=== PATIENT | female | born 1940 | race Caucasian/White ===

== ENCOUNTER 2025-02-10 16:37 | Emergency (ER) | payer MEDICARE, SELFPAY ==
[2025-02-10 16:38] VITALS: BP 108/91; PULSE 77; RESP 18; TEMP 36.3; O2SAT 93; BMI 19.1
--- NOTE | 2025-02-10 17:48 | CT_ITS ---
PROCEDURE: ABDOMEN/PELVIS W IV CONT ONLY 02/10/2025 REASON FOR EXAM: DIARRHEA. TECHNIQUE: ABDOMEN/PELVIS W IV CONT ONLY Coronal and Sagittal reconstruction series were provided. CONTRAST: Isovue 370 VOLUME: 70 mL One or more dose reduction techniques were used (e.g., Automated exposure control, adjustment of the mA and/or kV according to patient size, use of iterative reconstruction technique. RADIATION DOSE SUMMARY: CTDlvol: 6.65, 5.92 mGy DLP: 275.42 mGycm COMPARISON: None. FINDINGS: LUNG BASES: No basilar airspace consolidation or pleural effusion. Minimal dependent atelectasis bilaterally. Coronary artery calcification. LIVER: Ill-defined hypodensity measuring 1.3 cm in segment 4B along the falciform ligament, possibly focal hepatic steatosis. GALLBLADDER: The gallbladder is completely contracted, limiting its evaluation. BILE DUCTS: Prominent intrahepatic and extrahepatic bile ducts, mildly dilated for patient's age. The CBD measures up to 9.7 mm with rapid tapering at the level of the ampulla. No obstructing lesion seen. PANCREAS: Unremarkable. SPLEEN: Unremarkable. ADRENAL GLANDS: Unremarkable. KIDNEYS: The kidneys enhance symmetrically. Hypodense 3.6 mm right renal lesion, likely a cyst. No hydronephrosis or hydroureter. STOMACH AND BOWEL: Small hiatal hernia. Diffuse wall thickening of the sigmoid colon and rectum with adjacent fat stranding. No obstruction or perforation. Moderate colonic stool. 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 APPENDIX: Normal-appearing appendix. No CT evidence for appendicitis. RETRO/PERITONEUM: No free fluid. No free air. LYMPH NODES: Multiple small left periaortic lymph nodes. PELVIC ORGANS: Unremarkable urinary bladder and uterus. The ovaries are not well seen. VASCULATURE: No aortic aneurysm. Scattered calcified atherosclerosis. ABDOMINAL WALL AND SOFT TISSUES: Tiny fat containing umbilical hernia. BONES: No fracture or suspicious osseous abnormality. Degenerative changes of the spine and both hips. Mild/moderate lumbar levoscoliosis. CT/Abdomen/Pelvis W IV Cont ONLY IMPRESSION: 1. Diffusely thickened rectosigmoid colon with adjacent inflammatory changes, query acute proctocolitis. 2. Mildly dilated bile ducts. No obstructing lesion seen. A biliary strictur e at the level of the ampulla is possible. Reading Location: [id number]
--- NOTE | 2025-02-10 17:56 | EX.ED.DYSGE1 ---
HPI <ARIANA Leiva - Last Filed: 02/10/25 20:04> History of Present Illness Chief Complaint: Diarrhea Narrative Narrative: 84 old female states 2 weeks ago she started having diarrhea. A few days into the illness the diarrhea became heavy and she was going multiple times throughout the day. No black or bloody stools. She never had nausea, vomiting, or abdominal pain. It is slowed down to 2-3 watery bowel movements a day. She saw her primary care doctor yesterday and had blood work and they called her today stating her white blood cell count was elevated and she has a kidney injury from dehydration and to go to the ED for fluids. PFSH <ARIANA Leiva Last Filed: 02/10/25 20:04> [facility] Home Medications ?Medication ?Instructions ?Recorded ?Last Taken ?Type levofloxacin 750 mg tablet 750 mg PO DAILY 7 days #7 tabs 02/10/25 Unknown Rx metronidazole 500 mg tablet 500 mg PO BID 7 days #14 tabs 02/10/25 Unknown Rx Allergy/AdvReac Type Severity Reaction Status Date / Time amoxicillin Allergy Intermediate Hives Verified 02/10/25 16:40 Social History Smoking Status: Never smoker ROS <ARIANA Leiva - Last Filed: 02/10/25 20:04> ROS ED ROS Narrative Constitutional: Negative for fever, chills, malaise. GI: Positive for diarrhea. Negative for abdominal pain, nausea, vomiting, melena, hematochezia. : Negative for dysuria. EXAM <ARIANA Leiva Last Filed: 02/10/25 20:04> Physical Exam Narrative Exam Narrative: CONST: Patient sitting in no acute distress. EYES: Normal inspection. NECK: Normal inspection. RESP: No respiratory distress, CTAB. CVS: Regular rate and rhythm, no murmur, no gallop. ABD: Soft and nontender, no guarding or rebound, nondistended, normal bowel sounds x 4 SKIN: Color normal, no rash, warm, dry, intact. EXTREMITIES: Normal appearance, no pedal edema. NEURO: Alert and answering questions appropriately. PSYCH: Normal affect. Const Vital Signs: 02/10/25 16:38 02/10/25 18:37 Temperature 97.4 F L Temperature Source Oral Pulse Rate 77 80 Respiratory Rate 18 18 Blood Pressure 108/91 H 140/59 H Blood Pressure Mean 96 86 Pulse Ox 93 95 Oxygen Delivery Method Room Air Room Air <Dr. Galdino Pittman DO - Last Filed: 02/12/25 15:31> Physical Exam Const Vital Signs: 02/10/25 16:38 02/10/25 18:37 Temperature 97.4 F L Temperature Source Oral Pulse Rate 77 80 Respiratory Rate 18 18 Blood Pressure 108/91 H 140/59 H Blood Pressure Mean 96 86 Pulse Ox 93 95 Oxygen Delivery Method Room Air Room Air MDM <ARIANA Leiva - Last Filed: 02/10/25 20:04> [facility] MDM Narrative Medical decision making narrative: History gathered from: Patient and family members Differential includes but not limited to colitis, diverticulitis, viral etiology, C. difficile 84-year-old female has had 2 weeks of diarrhea, reporting initially the diarrhea was very frequent but now slowed down to 2-3 episodes a day. She has never had fever, chills, nausea or vomiting, or abdominal pain. A provider from her IM clinic called and states her white blood cell count was 16 and creatinine was 1.85 from labs drawn yesterday. Here she is awake alert no distress, vital stable. Her exam is completely benign with soft, nontender abdomen. WBC is 19.0 but lactic is normal at 1.9. BMP is overall unremarkable and creatinine is 1.20. She was given IV fluids. CT shows resolution of symptoms. Colitis. Since she is still having diarrhea and has significant leukocytosis so we will put her on Levaquin and Flagyl. First dose was given in ED. She does not have systemic symptoms and has never had abdominal pain and then is very well-appearing so is appropriate for outpatient management. I discussed return precautions. She was discharged in stable condition. History & Record Review Discussion w/independent historian: Patient and Family Additional record(s) reviewed:: Prior labs Lab Data Labs: Laboratory Results - last 24 hr 02/10/25 17:59 WBC 19.0 H RBC 3.88 L Hgb 12.3 Hct 37.9 MCV 97.7 MCH 31.7 MCHC 32.5 RDW Std Deviation 47.4 H RDW Coeff of Anay 13.1 Plt Count 542 H MPV 8.0 Immature Gran % (Auto) 0.700 Neut % (Auto) 82.0 H Lymph % (Auto) 6.1 L Conway % (Auto) 10.4 H Eos % (Auto) 0.2 Baso % (Auto) 0.6 Absolute Neuts (auto) 15.6 H Absolute Lymphs (auto) 1.16 Nucleated RBC % 0 Sodium 136 Potassium 3.3 Chloride 96 L Carbon Dioxide 24.7 Anion Gap 15 BUN 29 H Creatinine 1.20 Estim Creat Clear Calc 23.62 L Est GFR (MDRD) Non-Af 44 L BUN/Creatinine Ratio 24.1 H Glucose 113 H Lactic Acid 1.9 Calcium 9.2 Radiography Diagnostic Testing: Clinical Impression(s) from Imaging Studies Abdomen/Pelvis CT 02/10/25 17:48 IMPRESSION: 1. Diffusely thickened rectosigmoid colon with adjacent inflammatory changes, query acute proctocolitis. 2. Mildly dilated bile ducts. No obstructing lesion seen. A biliary stricture at the level of the ampulla is possible. Reading Location: [id number] <Dr. Galdino RoblesYanci, DO - Last Filed: 02/12/25 15:31> [facility] MDM Narrative Medical decision making narrative: History gathered from: Patient and family members Differential includes but not limited to colitis, diverticulitis, viral etiology, C. difficile 84-year-old female has had 2 weeks of diarrhea, reporting initially the diarrhea was very frequent but now slowed down to 2-3 episodes a day. She has never had fever, chills, nausea or vomiting, or abdominal pain. A provider from her IM clinic called and states her white blood cell count was 16 and creatinine was 1.85 from labs drawn yesterday. Here she is awake alert no distress, vital stable. Her exam is completely benign with soft, nontender abdomen. WBC is 19.0 but lactic is normal at 1.9. BMP is overall unremarkable and creatinine is 1.20. She was given IV fluids. CT shows resolution of symptoms. Colitis. Since she is still having diarrhea and has significant leukocytosis so we will put her on Levaquin and Flagyl. First dose was given in ED. She does not have systemic symptoms and has never had abdominal pain and then is very well-appearing so is appropriate for outpatient management. I discussed return precautions. She was discharged in stable condition. Supervisory Physician Note Patient was seen and examined with the Advanced Practice Provider. Nursing notes and vital signs have been reviewed. Pertinent old records have been reviewed. I agree with the essential elements of the EVANGELINA's history, physical exam, assessment, and plan. The differential diagnosis and management options were discussed with the EVANGELINA. I participated in determining and agree with the management, procedures, final impression and disposition as documented. See changes noted by me. Please see addendum or separate note for any additional details. Gen: A&O x3, NAD Head: Normocephalic, atraumatic Eyes: No sclera icterus, conjunctiva clear ENT: Moist mucous membranes Neck: Trachea midline, No JVD CV: RRR, no murmurs, no peripheral edema Resp: Lungs CTA BL, no w/r/c GI: Abd soft, non-distended, non-tender, no r/r/g Musc: Full ROM, no deformity Skin: Warm, dry Neuro: Alert, oriented, grossly intact, sensation intact Psych: Cooperative, appropriate mood and affect Lab Data Labs: Laboratory Results - last 24 hr 02/10/25 17:59 WBC 19.0 H RBC 3.88 L Hgb 12.3 Hct 37.9 MCV 97.7 MCH 31.7 MCHC 32.5 RDW Std Deviation 47.4 H RDW Coeff of Anay 13.1 Plt Count 542 H MPV 8.0 Immature Gran % (Auto) 0.700 Neut % (Auto) 82.0 H Lymph % (Auto) 6.1 L Conway % (Auto) 10.4 H Eos % (Auto) 0.2 Baso % (Auto) 0.6 Absolute Neuts (auto) 15.6 H Absolute Lymphs (auto) 1.16 Nucleated RBC % 0 Sodium 136 Potassium 3.3 Chloride 96 L Carbon Dioxide 24.7 Anion Gap 15 BUN 29 H Creatinine 1.20 Estim Creat Clear Calc 23.62 L Est GFR (MDRD) Non-Af 44 L BUN/Creatinine Ratio 24.1 H Glucose 113 H Lactic Acid 1.9 Calcium 9.2 Radiography Diagnostic Testing: Clinical Impression(s) from Imaging Studies Abdomen/Pelvis CT 02/10/25 17:48 IMPRESSION: 1. Diffusely thickened rectosigmoid colon with adjacent inflammatory changes, query acute proctocolitis. 2. Mildly dilated bile ducts. No obstructing lesion seen. A biliary stricture at the level of the ampulla is possible. Reading Location: [facility] Discharge Plan Triage Chief Complaint: Diarrhea ED Midlevel Provider: Elvira Campbell ED Provider: Galdino Pittman Dx/Rx/DC Orders Clinical Impression: Proctocolitis, Leukocytosis Instructions: ED Understanding Colitis Prescriptions: New metronidazole 500 mg tablet 500 mg PO BID 7 Days Qty: 14 0RF levofloxacin 750 mg tablet 750 mg PO DAILY 7 Days Qty: 7 0RF Primary Care Provider: Jesusita Kamara Referrals: Jesusita Kamara MD [Primary Care Provider] - Activity Restrictions/Additional Instructions: The CAT scan shows you have inflammation of your lower colon and rectum. This needs treated with an antibiotic since you have a high white blood cell count. Follow-up with your primary care doctor, or if any symptoms worsen like if you develop a fever, vomiting, abdominal pain, or worsening diarrhea please be seen again immediately. Print Language: Guinean Disposition Disposition: Home, Self Care Discharge Date/Time: 02/10/25 20:08
[2025-02-10] MEDS: 0.9% Normal Saline (1000mL) 1,000 ML 999 ML IV (18:15)
[2025-02-10 18:18] LABS: Hematocrit 37.9 % (37-47); Hemoglobin 12.3 g/dL (12.0-15.0); Immature Granulocytes Count 0.130 X10^3/uL (0.0-0.0); Mean Corp Hgb Conc 32.5 g/dL (32-36); Mean Corpuscular Volume 97.7 fL (81-99); Mean Platelet Vol. 8.0 fl (6.2-12.0); NRBC Flagged by Analyzer 0 % (0-5); POSITIVE DIFFERENTIAL YES; Platelet Count 542 K/mm3 (150-450); RBC Distribution Width CV 13.1 % (11.6-14.6); RBC Distribution Width SD 47.4 fl (35.1-43.9); Red Blood Count 3.88 M/mm3 (4.2-5.4); White Blood Count 19.0 K/mm3 (4.4-11.0)
--- OUTSIDE RECORDS SUMMARY | 2025-02-10 18:33 | XMS RPT_ITS | CCD ---
Author Organization [facility] Care Team Providers Care Reflector Driller And Deburrer Name Role Phone Anh JAVIER, Russ Primary Care Provider Russ Barone MD Primary Care Provider [phone] Alea Dorantes PA-C Unavailable Older SENIOR IOS DEVELOPER.COLD WORK OPERATOR, Martha Unavailable Pamela Self PA-C Unavailable GANTA, RUSS Primary Care Unavailable OLDER, MARTHA Referring Unavailable GANTA, RUSS Primary Care Unavailable OLDER, MARTHA Attending Unavailable GANTA, RUSS Primary Care Unavailable GANTA, RUSS Primary Care Unavailable GANTA, RUSS Primary Care Unavailable OLDER, MARTHA Referring Unavailable GANTA, RUSS Primary Care Unavailable OLDER, MARTHA Attending Unavailable GANTA, RUSS Primary Care Unavailable GANTA, RUSS Attending Unavailable GANTA, RUSS Primary Care Unavailable GANTA, RUSS Primary Care Unavailable OLDER, MARTHA Referring Unavailable GANTA, RUSS Primary Care Unavailable Alea Dorantes PA-C Unavailable Pamela Self PA-C Unavailable [phone] Allergies Allergy Classification Reported Allergen(s) Allergy Type Date of Onset Reaction(s) Facility (20 sources) Alendronate; Translations: [ALENDRONATE SODIUM] Drug Allergy 7 Intolerance [facility] Work Phone: (20 sources) Amoxicillin / Clavulanate; Translations: [AMOXICILLIN-PO T CLAVULANATE] Drug Allergy 8 Rash, Diarrhea, Swelling, Other: See Comments [facility] Work Phone: (20 sources) Grass pollen; Translations: [GRASS POLLEN] Propensity to adverse reactions 5 [facility] Work Phone: (11 sources) leaves [Other] Propensity to adverse reactions 5 [facility] Work Phone: (11 sources) weeds [Other] Propensity to adverse reactions 5 [facility] Work Phone: (13 sources) valACYclovir; Translations: [VALACYCLOVIR] Drug Allergy 4 GI Upset [facility] (1 source) OTHER; Translations: [OTHER] Propensity to adverse reactions (disorder) 5 [facility] Medications Current Medications Medication Drug Class(es) Dates Sig (Normalized) Sig (Original) aspirin 81 mg oral tablet (20 sources) Platelet Aggregation Inhibitor, Nonsteroidal Anti-inflammator y Drug Start: 5 take 1 tablet by mouth once daily ASPIRIN 81 MG ORAL TAB Take one(1) tablet daily. 0 04/01/2005 Active Comment on above: Take one(1) tablet d aily. atenolol 50 mg oral tablet (20 sources) beta-Adrenergic Joao Start: 1 End: 5 take 1 tablet by mouth once daily atenolol (TENORMIN) 50 mg tablet Indications: Essential hypertension, benign Take 1 tablet by mouth once daily. 90 tablet 3 09/24/2024 Active Comment on above: [facility] cetirizine hydrochloride 10 mg oral capsule (20 sources) Histamine-1 Receptor Antagonist Start: 1 Cetirizine (ZYRTEC) 10 mg ORAL Cap Take by mouth. Take by mouth 30 capsule 0 09/27/2010 Active Comment on above: Take by mouth. Take by mouth hydroCHLOROthiazide 12.5 mg oral capsule (20 sources) Thiazide Diuretic Start: 1 End: 5 take 1 capsule by mouth once daily hydroCHLOROthiazide 12.5 mg capsule Indications: Essential hypertension, benign Take 1 capsule by mouth once daily. 90 capsule 3 09/23/2024 Active Comment on above: Take 1 capsule by mo [facility] once daily. levothyroxine sodium 0.1 mg oral tablet (20 sources) l-Thyroxine Start: take 1 tablet by mouth once daily levothyroxine (LEVOXYL) 100 mcg tablet Indications: Hypothyroidism, unspecified type Take 1 tablet by mouth once daily. 90 tablet 3 10/20/2024 Active Start: 03-15-2021 End: 10-18-2024 take 1 tablet by mouth once daily levothyroxine (LEVOXYL) 100 mcg tablet Indications: Hypothyroidism, unspecified type Take 1 tablet by mouth once daily. 90 tablet 3 09/17/2023 10/18/2024 Discontinued Comment on above: Take 1 tablet by dinora th once daily. On all days of the week except on Friday take half tablet Take 1 tablet by dinora th once daily. losartan potassium 25 mg oral tablet (20 sources) Angiotensin 2 Receptor Joao Start: 09-01-2024 take 1 tablet by mouth once daily losartan (COZAAR) 25 mg tablet Indications: Elevated blood sugar Take 1 tablet by mouth once daily. 90 tablet 1 09/01/2024 Active Start: 11-05-2021 End: 08-28-2024 take 1 tablet by mouth once daily losartan (COZAAR) 25 mg tablet Indications: Elevated blood sugar Take 1 tablet by mouth once daily. 90 tablet 1 03/03/2024 08/28/2024 Discontinued Start: 10-05-2021 take 1 tablet by dinora th once daily losartan (COZAAR) 25 mg tablet Indications: Elevated blood sugar Take 1 tablet by mouth once daily. 30 tablet 3 10/05/2021 Active Start: 07-16-2021 End: 10-04-2021 take 1 tablet by mouth once daily losartan (COZAAR) 25 mg tablet Indications: Elevated blood sugar Take 1 tablet by mouth once daily. 30 tablet 3 07/16/2021 10/04/2021 Discontinued Comment on above: Take 1 tablet by dinora th once daily. meloxicam 15 mg oral tablet (6 sources) Nonsteroidal Anti-inflammatory Drug Start: 09-15-19 End: 03-09-20 take 1 tablet by mouth once daily for pain meloxicam (MOBIC) 15 mg tablet Indications: Arthritis of carpometacarpal (CMC) joint of right thumb Take 1 tablet by mouth once daily. for pain. Take with food. 90 tablet 12/09/2024 03/09/2025 Active ofloxacin 3 mg/ml otic solution (2 sources) Quinolone Antimicrobial Start: 03-05-20 End: 03-12-20 ofloxacin (FLOXIN) 0.3 % otic solution Use 5 Drops in the left ear two times a day for 7 days. 4 mL 03/05/2024 03/12/2024 Active predniSONE 20 mg oral tablet (3 sources) Start: 03-03-20 End: 03-08-20 take 2 tablets by mouth once daily predniSONE (DELTASONE) 20 mg tablet Indications: Hives Take 2 tablets by mouth once daily for 5 days. 10 tablet 03/03/2024 03/08/2024 Active simvastatin 10 mg oral tablet (20 sources) HMG-CoA Reductase Inhibitor Start: 11-25-19 take 1 tablet by mouth once daily at bedtime simvastatin (ZOCOR) 10 mg tablet Indications: Hypothyroidism, unspecified type Take 1 tablet by mouth daily at bedtime. 90 tablet 3 11/24/2024 Active Start: 11-05-2021 End: 09-17-2023 take 1 tablet by mouth once daily at bedtime simvastatin (ZOCOR) 10 mg tablet Indications: Hypothyroidism, unspecified type Take 1 tablet by mouth daily at bedtime. 90 tablet 3 09/17/2023 Active Start: 10-05-2021 take 1 tablet by dinora th once daily at bedtime simvastatin (ZOCOR) 10 mg tablet Indications: Hypothyroidism, unspecified type Take 1 tablet by mouth daily at bedtime. 90 tablet 3 10/05/2021 Active Start: 09-07-2020 End: 10-04-2021 take 1 tablet by mouth once daily at bedtime simvastatin (ZOCOR) 10 mg tablet Indications: Hypothyroidism, unspecified type Take 1 tablet by mouth daily at bedtime. 90 tablet 3 09/07/2020 10/04/2021 Discontinued Comment on above: Take 1 tablet by dinora th daily at bedtime. THERAPEUTIC MULTIVITAMIN ORAL TAB (20 sources) Start: 5 take 1 tablet by mouth once daily THERAPEUTIC MULTIVITAMIN ORAL TAB Take one(1) tablet daily. 0 04/01/2005 Active Comment on above: Take one(1) tablet d aily. valACYclovir 1000 mg oral tablet (1 source) Herpesvirus Nucleoside Analog DNA Polymerase Inhibitor, Herpes Simplex Virus Nucleoside Analog DNA Polymerase Inhibitor, Herpes Zoster Virus Nucleoside Analog DNA Polymerase Inhibitor Start: 4 End: 4 take 1 tablet by mouth three times daily valACYclovir (VALTREX) 1 gram tablet Take 1 tablet by mouth three times a day for 7 days. 21 tablet 03/06/2024 03/13/2024 Active Problems Active Problems Problem Classification Problem Date Documented Date Episodic/Chronic Allergic reactions (1 source) Urticaria; Translations: [Urticaria, unspecified] 03-03-2024 Episodic Diabetes mellitus without complication (6 sources) Hyperglycemia; Translations: [Hyperglycemia, unspecified] Episodic Diseases of mouth; excluding dental (1 source) Oral lesion; Translations: [Unspecified lesions of oral mucosa] 03-05-2024 Episodic Disorders of lipid metabolism (20 sources) Hyperlipidemia; Translations: [Hyperlipidemia, unspecified] Onset: 02-23-2009 07-02-2021 Chronic Diverticulosis and diverticulitis (20 sources) Diverticulosis of colon; Translations: [Diverticulosis of large intestine without perforation or abscess without bleeding] Onset: 03-15-2011 03-15-2011 Chronic Essential hypertension (20 sources) Benign essential hypertension; Translations: [Essential (primary) hypertension] Onset: 04-01-2005 Chronic Immunizations and screening for infectious disease (3 sources) Needs influenza immunization; Translations: [Encounter for immunization] Episodic Mood disorders (20 sources) Dysthymia; Translations: [Dysthymic disorder] Onset: 04-01-2005 11-01-2014 Chronic Nonmalignant breast conditions (20 sources) Fibrocystic disease of breast; Translations: [Diffuse cystic mastopathy of unspecified breast] Onset: 2011 2011 Chronic Osteoarthritis (2 sources) Arthritis of first carpometacarpal joint of right hand; Translations: [Unilateral primary osteoarthritis of first carpometacarpal joint, right hand] 09-14-2024 Chronic Other ear and sense organ disorders (1 source) Otalgia, left ear; Translations: [Otalgia, unspecified] 03-05-2024 Episodic Other hematologic conditions (1 source) MCV - raised; Translations: [Other abnormality of red blood cells] Episodic Other upper respiratory disease (20 sources) Allergic rhinitis; Translations: [Allergic rhinitis, unspecified] Onset: 03-08-2010 03-08-2010 Chronic Thyroid disorders (20 sources) Hypothyroidism; Translations: [Hypothyroidism, unspecified] Onset: 04-01-2005 07-02-2021 Chronic Viral infection (1 source) Herpes zoster without complication; Translations: [Zoster without complications] 03-18-2024 Episodic Past or Other Problems Problem Classification Problem Date Documented Date Episodic/Chronic Nonmalignant breast conditions (20 sources) Mammographic microcalcification of breast; Translations: [Mammographic microcalcification found on diagnostic imaging of breast] Onset: 2 07-22-2011 Episodic Other aftercare (1 source) Other correction (current) drug therapy; Translations: [Medication management] Onset: Episodic Other and unspecified benign neoplasm (20 sources) Benign neoplasm of rectum and anal canal; Translations: [Benign neoplasm of rectum] Onset: 1 03-15-2011 Episodic Other bone disease and musculoskeletal deformities (20 sources) Disorder of skeletal system; Translations: [Disorder of bone, unspecified] Onset: 5 04-01-2005 Episodic Other screening for suspected conditions (not mental disorders or infectious disease) (20 sources) Patient encounter status; Translations: [Encounter for screening for malignant neoplasm of colon] Onset: 1 03-15-2011 Episodic Results Test Name Value Interpretation Reference Range Facility [facility] 09-14-2024 CNOV Office Visit (INTMWS ) -------- PATY RIOS ([id number]) 1940 F Date Time Provider Department 09/14/24 8:00 AM RUSS BARONE INTMWS During your visit today, we recorded the following information about you: Pulse Blood pressure Weight Height 73/minute 118/68 48.5 kg 1.5 m Russ Barone MD 09/14/2024 8:47 AM Signed Paty Rios is a 84 year old female here for a Medicare wellness visit. Medicare Health Risk Assessment General Health Excellent Exercise: Minutes/Day 30 min Exercise: Days/Week 3 days she walks around her house in the [place]. Alcohol: Daily Use Never Alcohol: Drinks/Day Patient does not drink Alcohol: 6 or more drinks Never Feel off balance No Concerns: Teeth/Dentures No Concerns: Sexual function No Troubled by feelings None of the above Frequency: Eating healthy diet Several days ADLs requiring help None of the above Safety precautions in home/vehicle Yes Smoke, vape, chews tobacco No Difficulty hearing No Difficulty seeing No Current Providers Specialists: I have reviewed specialist-related care of the patient in the medical record. Medical/Family history review Reviewed and updated problem list, medical/surgical/family/ social history, medications, and allergies. Opioid use review Opioid Medications (last 90 days) No data to display Anxiety/Depression screening RAJESH-7 Score: 2 (Minimal Anxiety) Recommendation: no further intervention at this time Cognitive screening Mini Cog Score: 5 Cognitive screening reviewed and No further action needed (score 3-5). Functional Observation Was the patient's Timed Up AND Go test unsteady or >= 12 seconds? No Advance Care Planning Surrogate decision maker and/or advance care plan documented Measurements BP 118/68 Pulse 73 Ht 150 cm (4' 11.06) Wt 48.5 kg (107 lb) SpO2 97% BMI 21.57 kg/m? Vision Screening: Follows with optometry/ophthalmology Assessment/Plan Medicare annual wellness visit, subsequent (Z00.00) - Counseled on healthy diet and regular exercise - Fall avoidance information provided - Personalized prevention plan provided Reason for Visit Paty Rios is a 84 year oldfemale who presents here Patient presents with: Medicare Wellness Exam Health Maintenance Anxiety Screening DTaP,Tdap,Td Vaccine(1 - Tdap) Shingrix Vaccine(2 of 3) HPI This is a 84-year-old woman with a past medical history of hypertension, hyperlipidemia, hypothyroidism. She is here for Medicare wellness and the only concern she has today is arthritis in her right She has arthritis in the right thumb which makes it difficult for her to use it sometimes, she is aware of the pain all the time. She can hardly do her hair curler. Holding her tooth brush is a concern. Pain is 5/10. She takes tylenol which helps her HTN: BP controlled today. Log of bp is very good Checks BP at home. Compliant with medications. Denies any chest pain, palpitations, SOB, swelling in the feet. Careful with diet to avoid salt, trying to eat more fruits and vegetables, exercises regularly HPL: Reviewed test results with patient , takes medications regularly , does not report side effects. Conscious to avoid red meats, full fat dairy and its by products. Exercising 3 to 5 times a week. Hypothyroidism. She is doing well on her current dose of Synthroid. Denies fatigue, cold intolerance and swelling in feet. TSH recently checked and normal. No problem-specific Assessment AND Plan notes found for this encounter. 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, unspecified Diverticulosis of colon (without mention of hemorrhage) Essential hypertension, benign Unspecified hypothyroidism PAST SURGICAL HISTORY Procedure Laterality Date BIOPSY BREAST OPEN INCISIONAL Bx of breast, incisional COLONOSCOPY FLX DX W/COLLJ SPEC WHEN PFRMD 03/15/2011 Colonoscopy DILATION AND CURETTAGE DXAND/THER NONOBSTETRIC Dilation AND curettage LAPS ABD PRTMANDOMENTUM DX W/WO SPEC BR/WA SPX Laparoscopy STEREO LOC FOR CORE BRST BX RT 08-05-11 TONSILLECTOMY AND ADENOIDECTOMY T/A (under age 10 years) XCAPSL CTRC RMVL INSJ IO LENS PROSTH W/O ECP 2010 Phacoemulsification/Intr aocular Lens Insertion XCAPSL CTRC RMVL INSJ IO LENS PROSTH W/O ECP 2010 Phacoemulsification/Intr aocular Lens Insertion FAMILY HISTORY Problem Relation Age of Onset Stroke Mother other (chf) Mother other (circulatory problems) Father Arthritis Brother Heart Maternal Grandmother Hypertension Daughter Thyroid Daughter Hypertension Son Hypertension Son Social History Tobacco Use Smoking status: Never Smokeless tobacco: Never Vaping Use Vaping status: Never Used Substance Use Topics Alcohol use: No Drug use: No Past medical history, appointments, medications, allergies reviewed. Pertinent Lab/Diagnostic S (more content not included)... Normal [facility] CBC panel Auto (Bld)on 09-08 Erythrocyte distribution width (RBC) [Ratio] 11.7 % Normal 11.5-15.0 [facility] Comment on above: Order Comment: Speci men Type: BLOOD SPECIMENOrdering Facility: [facility] Address: [address] [place] [address] [place] [address] Performed By: #### 5 8410-2 ####[facility] [id number] [place] [address] [place] Hematocrit (Bld) [Volume fraction] 42.9 % Normal 36.0-46.0 [facility] Comment on above: Order Comment: Speci men Type: BLOOD SPECIMENOrdering Facility: [facility] Address: [address] [place] [address] Performed By: #### 5 8410-2 ####[facility] MLIA [id number] [place] [address] [place] Hemoglobin (Bld) [Mass/Vol] 14.0 g/dL Normal 11.5-15.5 [facility] Comment on above: Order Comment: Speci men Type: BLOOD SPECIMENOrdering Facility: [facility] Address: [address] [place] [address] Performed By: #### 5 8410-2 ####[facility] CENTERLIA [id number] [place] [address] [place] MCH (RBC) [Entitic mass] 32.2 pg Normal 26.0-34.0 [facility] Comment on above: Order Comment: Speci men Type: BLOOD SPECIMENOrdering Facility: [facility] Address: [address] [place] [address] Performed By: #### 5 8410-2 ####[facility]ENTERLIA [id number] [place] [address] [place] MCHC (RBC) [Mass/Vol] 32.6 g/dL Normal 30.5-36.0 [facility] Comment on above: Order Comment: Speci men Type: BLOOD SPECIMENOrdering Facility: [facility] Address: [address] [place] [address] Performed By: #### 5 8410-2 ####[facility] CENTERLIA [id number] [place] [address] [place] MCV (RBC) [Entitic vol] 98.6 fL Normal 80.0-100.0 [facility] Comment on above: Order Comment: Speci men Type: BLOOD SPECIMENOrdering Facility: [facility] Address: [address] [place] [address] Performed By: #### 5 8410-2 ####[facility] HOSPITALLEIF [id number] [place] [address] [place] Nucleated RBC (Bld) [#/Vol] 10*3/uL Normal <0.01 [facility] Comment on above: Order Comment: Speci men Type: BLOOD SPECIMENOrdering Facility: [facility] Address: [address] [place] [address] Performed By: #### 5 8410-2 ####[facility]ITALANA MTaylor [id number] [place] [address] [place] Platelet mean volume (Bld) [Entitic vol] 8.7 fL Low 9.0-12.7 [facility] Comment on above: Order Comment: Speci men Type: BLOOD SPECIMENOrdering Facility: [facility] Address: [address] [place] [address] Performed By: #### 5 8410-2 ####[facility] HOSPITALPABLOA [id number] [place] [address] [place] Platelets (Bld) [#/Vol] 272 10*3/uL Normal 150-400 [facility] Comment on above: Order Comment: Speci men Type: BLOOD SPECIMENOrdering Facility: [facility] Address: [address] [place] [address] Performed By: #### 5 8410-2 ####[facility]ITALNCLIA [id number] [place] [address] [place] RBC (Bld) [#/Vol] 4.35 10*6/uL Normal 3.90-5.20 [facility] Comment on above: Order Comment: Speci men Type: BLOOD SPECIMENOrdering Facility: [facility] Address: [address] [place] [address] Performed By: #### 5 8410-2 ####[facility] H[facility]ITALNCLIA [id number] [place] [address] [place] WBC (Bld) [#/Vol] 4.49 10*3/uL Normal 3.70-11.00 [facility] Comment on above: Order Comment: Speci men Type: BLOOD SPECIMENOrdering Facility: [facility] Address: [address] [place] [address] Performed By: #### 5 8410-2 ####[facility] HOSPITALNCA [id number] [place] [address] [facility] Comprehensive metabolic 2000 panelon 09-08-2024 Albumin [Mass/Vol] 4.1 g/dL Normal 3.9-4.9 [facility] Comment on above: Order Comment: Speci men Type: BLOOD SPECIMENOrdering Facility: [facility] Address: [address] [place] [address] Performed By: #### 2 4323-8 ####[facility]ITALA [id number] [place] [address] [place]#### 3016-3 ####[facility]ORATORYCLIA [id number] [place] [address] [place]#### 21771-2 ####[facility]ORATORYCLIA [id number] [place] [address] [place] AMERICABAYCARE ALLIANT HOSPITALA [id number] [place] [address] [place] ALP [Catalytic activity/Vol] 59 U/L Normal 34-123 [facility] Comment on above: Order Comment: Speci men Type: BLOOD SPECIMENOrdering Facility: [facility] Address: [address] [place] [address] Performed By: #### 2 4323-8 ####[facility] COREY MILLTOWNCLIA [id number] [place] [address] [place]#### 3016-3 ####[facility]ORATORYCLIA [id number] [address] [place]#### 28540-4 ####[facility]ORATORYCLIA [id number] [address] COREY MILLTOWNCLIA [id number] [place] [address] [place] ALT [Catalytic activity/Vol] 6 U/L Low 7-38 [facility] Comment on above: Order Comment: Speci men Type: BLOOD SPECIMENOrdering Facility: [facility] Address: [address] [place] [address] Performed By: #### 2 4323-8 ####[facility] MILLTOWNCLIA [id number] [place] [address] [place]#### 3016-3 ####[facility]ORATORYCLIA [id number] [place] [address] [place]#### 11943-6 ####[facility]ORATORYCLIA [id number] [address] STATES OF [facility] COREY MILLTOWNCLIA [id number] [place] [address] [place] Anion gap [Moles/Vol] 13 mmol/L Normal 8-15 [facility] Comment on above: Order Comment: Speci men Type: BLOOD SPECIMENOrdering Facility: [facility] Address: [address] [place] [address] Performed By: #### 2 4323-8 ####[facility] COREY MILLTOWNCLIA [id number] [place] [address] [place]#### 3016-3 ####[facility]ORYCLIA [id number] [address] [place]#### 93562-7 ####[facility]ORATORYCLIA [id number] [address] STATES OF AMERICAMANSFIELD H[facility] COREYCHICKASAW [facility] [id number] [place] [address] [place] AST [Catalytic activity/Vol] 15 U/L Normal 13-35 [facility] Comment on above: Order Comment: Speci men Type: BLOOD SPECIMENOrdering Facility: [facility] Address: [address] [place] [address] Performed By: #### 2 4323-8 ####[facility] HOSPITALTOWNCLIA [id number] [address] [place]#### 3016-3 ####[facility]ATORYCLIA [id number] [address] [place]#### 71296-8 ####[facility]ORATORYCLIA [id number] [address] STATES OF AMERICAKETTERING HEALTH [facility] SOIN MEDICAL CENTERLI [id number] [place] [address] [place] Bilirubin [Mass/Vol] 0.6 mg/dL Normal 0.2-1.3 [facility] Comment on above: Order Comment: Speci men Type: BLOOD SPECIMENOrdering Facility: [facility] Address: [address] [place] [address] Performed By: #### 2 4323-8 ####[facility] HOSPITALWNCLIA [id number] [place] [address] [place]#### 3016-3 ####[facility]ORATORYCLIA [id number] [address] [place]#### 47522-8 ####[facility]ORYCLIA [id number] [address] COREY MILLTOWNCLIA [id number] [place] [address] [place] Calcium [Mass/Vol] 9.3 mg/dL Normal 8.5-10.2 [facility] Comment on above: Order Comment: Speci men Type: BLOOD SPECIMENOrdering Facility: [facility] Address: [address] [place] [address] Performed By: #### 2 4323-8 ####[facility]ILL[facility]OWNCLIA [id number] [place] [address] [place]#### 3016-3 ####[facility]ORATORYCLIA [id number] [address] [place]#### 00911-2 ####[facility]ORATORYCLIA [id number] [address] STATES OF [facility]ALTHWNCLIA [id number] [place] [address] [place] Chloride [Moles/Vol] 101 mmol/L Normal 98-107 [facility] Comment on above: Order Comment: Speci men Type: BLOOD SPECIMENOrdering Facility: [facility] Address: [address] [place] [address] Performed By: #### 2 4323-8 ####[facility]OWNCLIA [id number] [place] [address] [place]#### 3016-3 ####[facility]ORATORYCLIA [id number] [place] [address] [place]#### 93629-0 ####[facility]ORATORYCLIA [id number] [address] STATES OF [facility] C[facility] MILLTOWNCLIA [id number] [place] [address] [place] CO2 [Moles/Vol] 26 mmol/L Normal 22-30 [facility] Comment on above: Order Comment: Speci men Type: BLOOD SPECIMENOrdering Facility: [facility] Address: [address] [place] [address] Performed By: #### 2 4323-8 ####[facility]ILL[facility]OWNCLIA [id number] [place] [address] [place]#### 3016-3 ####[facility]ORATORYCLIA [id number] [address] [place]#### 95613-2 ####[facility]ATORYCLIA [id number] [address] STATES OF [facility] [id number] [place] [address] [place] Creatinine [Mass/Vol] 0.63 mg/dL Normal 0.58-0.96 [facility] Comment on above: Order Comment: Speci men Type: BLOOD SPECIMENOrdering Facility: [facility] Address: [address] [place] [address] Performed By: #### 2 4323-8 ####[facility]ILLWNCLIA [id number] [place] [address] [place]#### 3016-3 ####[facility]ORATORYCLIA [id number] [place] [address] [place]#### 69742-9 ####[facility]ORATORYCLIA [id number] [address] STATES OF [facility] COREY MILLTOWNCLIA [id number] [place] [address] [place] Creatinine and Glomerular filtration rate.predicted panel (S/P/Bld) 87 mL/min/1.73m??? Normal >=60 [facility] Comment on above: Order Comment: Tomasz mast Type: BLOOD SPECIMENOrdering Facility: [facility] Address: [address] [place] [address] Result Comment: Briana mated Glomerular Filtration Rate (eGFR) is calculated using the 2020 CKD-EPI creatinine equation. This equation utilizes serum creatinine, sex, and age as parameters. The creatinine assay has traceable calibration to isotope dilution-mass spectrometry. Refer to KDIGO guidelines for clinical interpretation. In patients with unstable renal function, e.g. those with acute kidney injury, the eGFR may not accurately reflect actual GFR. Performed By: #### 2 4323-8 ####[facility]ITAL[facility] [id number] [address] [place]#### 3016-3 ####[facility] LABORATORYCLIA [id number] [address]#### [address]36[address]-1 ####[facility] LABORATORYCLIA [id number] [address] STATES OF [facility] [id number] [place] [address] [place] Glucose [Mass/Vol] 96 mg/dL Normal 74-99 [facility] Comment on above: Order Comment: Tomasz mast Type: BLOOD SPECIMENOrdering Facility: [facility] Address: [address] [place] [id number] Result Comment: The [place] Diabetes Association (ADA) provides guidance for cutoff values for fasting glucose and random glucose. The ADA defines fasting as no caloric intake for at least 8 hours. Fasting plasma glucose results between 100 to 125 mg/dL indicate increased risk for diabetes (prediabetes). Fasting plasma glucose results greater than or equal to 126 mg/dL meet the criteria for diagnosis of diabetes. In the absence of unequivocal hyperglycemia, results should be confirmed by repeat testing. In a patient with classic symptoms of hyperglycemia or hyperglycemic crisis, random plasma glucose results greater than or equal to 200 mg/dL meet the criteria for diagnosis of diabetes. Reference: Standards of Medical Care in Diabetes 2016, [place] Diabetes Association. Diabetes Care. 2016.39(Suppl 1). Performed By: #### 2 4323-8 ####[facility]OWNCLIA [id number] [place] [address] [place]#### 3016-3 ####[facility]ATORYCLIA [id number] [address] [place]#### 94169-5 ####[facility]ORATORYCLIA [id number] [address] STATES [facility]OSPITALWNELIA [id number] [place] [address] [place] Potassium [Moles/Vol] 3.5 mmol/L Low 3.7-5.1 [facility] Comment on above: Order Comment: Speci men Type: BLOOD SPECIMENOrdering Facility: [facility] Address: [address] [place] [address] Performed By: #### 2 4323-8 ####[facility]CL[facility] [id number] [place] [address] [place]#### 3016-3 ####[facility]ATORYCLIA [id number] [address] [place]#### 59292-9 ####[facility]ATORYCLIA [id number] [address] STATES [facility] MILLTOWNCLIA [id number] [place] [address] [place] Protein [Mass/Vol] 6.8 g/dL Normal 6.3-8.0 [facility] Comment on above: Order Comment: Speci men Type: BLOOD SPECIMENOrdering Facility: [facility] Address: [address] [place] [address] Performed By: #### 2 4323-8 ####[facility]CL[facility] [id number] [place] [address] [place]#### 3016-3 ####[facility]ORATORYCLIA [id number] [place] [address] [place]#### 24921-8 ####[facility]ORYCLIA [id number] [place] [address] [place] [facility] C[facility] MILLTOWNCLIA [id number] [place] [address] [place] Sodium [Moles/Vol] 140 mmol/L Normal 136-144 [facility] Comment on above: Order Comment: Speci men Type: BLOOD SPECIMENOrdering Facility: [facility] Address: [address] [place] [address] Performed By: #### 2 4323-8 ####[facility]CL[facility] [id number] [place] [address] [place]#### 3016-3 ####[facility]ORATORYCLIA [id number] [place] [address] [place]#### 52480-1 ####[facility]ORATORYCLIA [id number] [place] [address] [place] AMERICASALAH FOUNDATION CHILDREN'S HOSPITALWNCLIA [id number] [place] [address] [place] Urea nitrogen [Mass/Vol] 13 mg/dL Normal 7-21 [facility] Comment on above: Order Comment: Speci men Type: BLOOD SPECIMENOrdering Facility: [facility] Address: [address] [place] [address] Performed By: #### 2 4323-8 ####[facility]ILLWNCLIA [id number] [place] [address] [place]#### 3016-3 ####[facility]ATORYCLIA [id number] [place] [address] [place]#### 10276-8 ####[facility]ORATORYCLIA [id number] [id number] [address] OF [facility] Lipid 1996 panelon 5 Cholesterol [Mass/Vol] 141 mg/dL Normal <200 [facility] Comment on above: Order Comment: Speci men Type: BLOOD SPECIMENOrdering Facility: [facility] Address: [address] [place] [address] Result Comment: <200 mg/dL, Desirable 200-239 mg/dL, Borderline high >239 mg/dL, High Performed By: #### 2 4323-8 ####[facility] CENTERLIA [id number] [place] [address] [place]#### 3016-3 ####[facility]ATORYCLIA [id number] [address] [place]#### 91721-3 ####[facility]ORATORYCLIA [id number] [address] STATES [facility]OSPITALWNCLIA [id number] [address] [place] Cholesterol in HDL [Mass/Vol] 37 mg/dL Low >39 [facility] Comment on above: Order Comment: Speci men Type: BLOOD SPECIMENOrdering Facility: [facility] Address: [address] [place] [address] Result Comment: 40-5 9 mg/dL, Acceptable >59 mg/dL, High: Negative risk factor for coronary heart disease <40 mg/dL, Low: Positive risk factor for coronary heart disease Performed By: #### 2 4323-8 ####[facility]CL[facility] [id number] [address] [place]#### 3016-3 ####[facility]ORATORYCLIA [id number] [address]#### [address]-2 ####[facility] LABORATORYCLIA [id number] [address] [id number] [address] Cholesterol in LDL [Mass/Vol] 68 mg/dL Normal <100 [facility] Comment on above: Order Comment: Speci men Type: BLOOD SPECIMENOrdering Facility: [facility] Address: [address] [place] [address] Result Comment: <100 mg/dL, Optimal 100-129 mg/dL, Near optimal/above optimal 130-159 mg/dL, Borderline high 160-189 mg/dL, High >189 mg/dL, Very high Secondary prevention optimal LDL Cholesterol levels are recommended to be < 70 mg/dL Performed By: #### 2 4323-8 ####[facility]ITALA [id number] [address] [place]#### 3016-3 ####[facility]ATORYCLIA [id number] [address]#### 66970-8 ####[facility]ORATORYCLIA [id number] [address] [id number] [address] Cholesterol in LDL/Cholesterol in HDL [Mass ratio] 1.84 {ratio} Normal <2.54 [facility] Comment on above: Order Comment: Speci men Type: BLOOD SPECIMENOrdering Facility: [facility] Address: [address] [place] [address] Result Comment: Quentin cho: 1. National Cholesterol Education Program ATP III Guideline At-A-Glance Quick Desk Reference: National Heart, Lung, and Blood [place]. National Institutes of Health. 2001: NIH Publication No. 01-3305. 2. An International Atherosclerosis Society position paper: global recommendations for the management of dyslipidemia: executive summary, Atherosclerosis. 2014: 232(2):410-413. Performed By: #### 2 4323-8 ####[facility] COREY MILLTOWNCLIA [id number] [address] [place]#### 3016-3 ####[facility]ORATORYCLIA [id number] [address]#### 54972-1 ####[facility]ORATORYCLIA [id number] [address] COREY MILLWNCLIA [id number] [place] [address] [place] Cholesterol in VLDL [Mass/Vol] 36 mg/dL High <30 [facility] Comment on above: Order Comment: Speci men Type: BLOOD SPECIMENOrdering Facility: [facility] Address: [address] [place] [address] Performed By: #### 2 4323-8 ####[facility]ILLWNCL[facility] [id number] [address] [place]#### 3016-3 ####[facility]ATORYCLIA [id number] [address] [place]#### 95504-6 ####[facility]ORATORYCLIA [id number] [address] COREYVERMONT STATE HOSPITALWNCLIA [id number] [place] [address] [place] Cholesterol non HDL [Mass/Vol] 104 mg/dL Normal <130 [facility] Comment on above: Order Comment: Speci men Type: BLOOD SPECIMENOrdering Facility: [facility] Address: [address] [place] [address] Result Comment: <130 mg/dL, Optimal 130-159 mg/dL, Near optimal/above optimal 160-189 mg/dL, Borderline high 190-219 mg/dL, High >219 mg/dL, Very high Secondary prevention optimal non HDL Cholesterol levels are recommended to be <100 mg/dL Performed By: #### 2 4323-8 ####[facility] HOSPITALWNCLIA [id number] [place] [address] [place]#### 3016-3 ####[facility]ATORYCLIA [id number] [address]#### 85948-7 ####[facility] LABORATORYCLIA [id number] [address] [id number] [address] STATES [facility] Cholesterol.total/ Cholesterol in HDL [Mass ratio] 3.81 {ratio} Normal <5.10 [facility] Comment on above: Order Comment: Speci men Type: BLOOD SPECIMENOrdering Facility: [facility] Address: [address] [place] [address] Performed By: #### 2 4323-8 ####[facility]ITALA [id number] [address] [place]#### 3016-3 ####[facility] LABORATORYCLIA [id number] [address] [place]#### 16855-4 ####[facility] LABORATORYCLIA [id number] [address] [id number] [address] FASTING TIME 14 hrs Normal [facility] Comment on above: Order Comment: Speci men Type: BLOOD SPECIMENOrdering Facility: [facility] Address: [address] [place] [address] Performed By: #### 2 4323-8 ####[facility]S HOSPITALWNCLIA [id number] [place] [address] [place]#### 3016-3 ####[facility]ORATORYCLIA [id number] [address] [place]#### 35266-6 ####[facility]ORATORYCLIA [id number] [address] STATES OF [facility] CENTERLIA [id number] [address] Triglyceride [Mass/Vol] 182 mg/dL High <150 [facility] Comment on above: Order Comment: Speci men Type: BLOOD SPECIMENOrdering Facility: [facility] Address: [address] [place] [address] Result Comment: <150 mg/dL, Normal 150-199 mg/dL, Borderline high 200-499 mg/dL, High >499 mg/dL, Very high Performed By: #### 2 4323-8 ####[facility] HOSPITALNCLIA [id number] [place] [address] [place]#### 3016-3 ####[facility]ORATORYCLIA [id number] [address] [place]#### 39610-9 ####[facility]ORATORYCLIA [id number] [address] OF [facility] HEALTHWNELIA [id number] [address] [place] TSH SerPl-aCncon 09-08-2024 TSH Qn 0.154 m[IU]/L Low 0.270-4.200 [facility] Comment on above: Order Comment: Speci men Type: BLOOD SPECIMENOrdering Facility: [facility] Address: [address] [place] [address] Performed By: #### 2 4323-8 ####[facility] HOSPITALNCLIA [id number] [address] [place]#### 3016-3 ####[facility]ORATORYCLIA [id number] [place] [id number] [facility] [place]#### 53540-0 ####[facility]ORATORYCLIA [id number] [place] [id number] [place] STATES OF [facility]EN JOHNSONNCLIA [id number] [address] OF [facility] CNPN Telephone (INTMWS) -------- PATY RIOS ([id number]) 1940 F Date Time Provider Department 04/28/24 RUSS BARONEJESSICA During your visit today, we recorded the following information about you: Karrie Russo LPN 04/28/2024 2:20 PM Signed Patient requesting to have regular dose flu vaccine and not high dose. States that she broke out in hives and was severely nauseated the last time she received the high dose. Please review and advise. Karrie Russo LPN Allergies As of Date: 04/28/2024 Noted Allergy Reaction AUGMENTIN (AMOXICILLIN-POT CLAVUL*10/15/2017 2 - Rash 6 - Diarrhea 7 - Swelling 14 - Other: See Comments Comments: stomach cramping FOSAMAX (ALENDRONATE SODIUM) 12/08/2006 5 - Intolerance Comments: Diffuse myalgias, arms AND legs GRASS POLLEN 04/01/2005 VALTREX (VALACYCLOVIR) 03/18/2024 8 - GI Upset Date Reviewed: 03/18/2024 Reviewed by: Jo Thomas MA - Fully Assessed Reason for Visit: Orders [681] Immunizations [194] Cmt: Flu vaccination Primary Visit Diagnosis:Need for influenza vaccination [Z23] Order(s):INFLUENZA VACCINE, AGE 6MO-64YR, TRIVALENT (AFLURIA, FLULAVAL, FLUVIRIN, FLUZONE) [[id number]] Order #: [id number] Prescriptions as of 04/29/2024 - losartan (COZAAR) 25 mg tablet Take 1 tablet by mouth once daily. - levothyroxine (LEVOXYL) 100 mcg tablet Take 1 tablet by mouth once daily. - atenolol (TENORMIN) 50 mg tablet Take 1 tablet by mouth once daily. - hydroCHLOROthiazide 12.5 mg capsule Take 1 capsule by mouth once daily. - simvastatin (ZOCOR) 10 mg tablet Take 1 tablet by mouth daily at bedtime. - Cetirizine (ZYRTEC) 10 mg ORAL Cap Take by mouth. Take by mouth - THERAPEUTIC MULTIVITAMIN ORAL TAB Take one(1) tablet daily. - ASPIRIN 81 MG ORAL TAB Take one(1) tablet daily. 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 Blood sugar slightly elevated but is normal if this was not a fasting sample. If it was a fasting sample, I recommend we do a HgbA1c to further evaluate this. Thank you Martha Funk APRN.Lyndsay Orona LPN 03/19/2024 10:12 AM Signed Called and left message for patient to call office back for results Lyndsay JACK Dunn March 19, 2024 10:12 AM Muriel Child LPN 03/19/2024 3:08 PM Signed Patient returned call and went over results, notes from Martha Funk DANCE HALL HOST/HOSTESS with understanding. Patient said she was not fasting for the lab work. Martha Funk APRN.CNP 03/22/2024 7:20 AM Signed Then no concerns on blood work. Thank you Martha Funk APRN.COLD WORK OPERATOR Allergies As of Date: 03/19/2024 Noted Allergy Reaction AUGMENTIN (AMOXICILLIN-POT CLAVUL*10/15/2017 2 - Rash 6 - Diarrhea 7 - Swelling 14 - Other: See Comments Comments: stomach cramping FOSAMAX (ALENDRONATE SODIUM) 12/08/2006 5 - Intolerance Comments: Diffuse myalgias, arms AND legs GRASS POLLEN 04/01/2005 VALTREX (VALACYCLOVIR) 03/18/2024 8 - GI Upset Date Reviewed: 03/18/2024 Reviewed by: Jo Thomas MA - Fully Assessed Reason for Visit: Results [95] Prescriptions as of 03/22/2024 - losartan (COZAAR) 25 mg tablet Take 1 tablet by mouth once daily. - levothyroxine (LEVOXYL) 100 mcg tablet Take 1 tablet by mouth once daily. - atenolol (TENORMIN) 50 mg tablet Take 1 tablet by mouth once daily. - hydroCHLOROthiazide 12.5 mg capsule Take 1 capsule by mouth once daily. - simvastatin (ZOCOR) 10 mg tablet Take 1 tablet by mouth daily at bedtime. - Cetirizine (ZYRTEC) 10 mg ORAL Cap Take by mouth. Take by mouth - THERAPEUTIC MULTIVITAMIN ORAL TAB Take one(1) tablet daily. - ASPIRIN 81 MG ORAL TAB Take one(1) tablet daily. 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] 04/01/2005 Hyperlipidemia [E78.5] 02/23/2009 Allergic Rhinitis [J30.9] 03/08/2010 Special screening for malignant neoplasms, colo*03/15/2011 Benign neoplasm of rectum and anal canal [D12.8*03/15/2011 Diverticulosis of colon (without mention of hem*03/15/2011 Mammographic microcalcification [R92.0] 07/22/2011 Diffuse cystic mastopathy [N60.19] 2011 Encounter Status:Closed by JO THOMAS on 03/22/24 Normal [facility] Basic metabolic 2000 panelon 03-18-2024 Anion gap [Moles/Vol] 11 mmol/L Normal 8-15 [facility] Comment on above: Order Comment: Speci men Type: BLOOD SPECIMENOrdering Facility: [facility] Address: [address] [place] [address] Performed By: #### 3 051-0, 3024-7, 03743-5, 3016-3 ####[facility] LABCLIA [id number] [place] [address] [place] Calcium [Mass/Vol] 9.5 mg/dL Normal 8.5-10.2 [facility] Comment on above: Order Comment: Speci men Type: BLOOD SPECIMENOrdering Facility: [facility] Address: [address] [place] [address] Performed By: #### 3 051-0, 3024-7, 90432-2, 3016-3 ####[facility] LABCLIA [id number] [place] [address] [place] Chloride [Moles/Vol] 99 mmol/L Normal 98-107 [facility] Comment on above: Order Comment: Speci men Type: BLOOD SPECIMENOrdering Facility: [facility] Address: [address] [place] [address] Performed By: #### 3 051-0, 3024-7, 62424-6, 3016-3 ####[facility] LABCLIA [id number] [place] [address] [place] CO2 [Moles/Vol] 30 mmol/L Normal 22-30 [facility] Comment on above: Order Comment: Speci men Type: BLOOD SPECIMENOrdering Facility: [facility] Address: [address] [place] [address] Performed By: #### 3 051-0, 3024-7, 43450-8, 3016-3 ####[facility] LABCLIA [id number] [place] [address] [place] Creatinine [Mass/Vol] 0.70 mg/dL Normal 0.58-0.96 [facility] Comment on above: Order Comment: Speci men Type: BLOOD SPECIMENOrdering Facility: [facility] Address: [address] [place] [address] Performed By: #### 3 051-0, 3024-7, 82073-8, 3016-3 ####[facility] LABCLIA [id number] [place] [address] [place] Creatinine and Glomerular filtration rate.predicted panel (S/P/Bld) 85 mL/min/1.73m??? Normal >=60 [facility] Comment on above: Order Comment: Speci men Type: BLOOD SPECIMENOrdering Facility: [facility] Address: [address] [place] [address] Result Comment: Briana mated Glomerular Filtration Rate (eGFR) is calculated using the 2020 CKD-EPI creatinine equation. This equation utilizes serum creatinine, sex, and age as parameters. The creatinine assay has traceable calibration to isotope dilution-mass spectrometry. Refer to KDIGO guidelines for clinical interpretation. In patients with unstable renal function, e.g. those with acute kidney injury, the eGFR may not accurately reflect actual GFR. Performed By: #### 3 051-0, 4-7, 77829-9, 3015-3 ####[facility] LABCLIA [id number] [place] [address] [place] Glucose [Mass/Vol] 113 mg/dL High 74-99 [facility] Comment on above: Order Comment: Tomasz mast Type: BLOOD SPECIMENOrdering Facility: [facility] Address: [address] [place] [address] Result Comment: The [place] Diabetes Association (ADA) provides guidance for cutoff values for fasting glucose and random glucose. The ADA defines fasting as no caloric intake for at least 8 hours. Fasting plasma glucose results between 100 to 125 mg/dL indicate increased risk for diabetes (prediabetes). Fasting plasma glucose results greater than or equal to 126 mg/dL meet the criteria for diagnosis of diabetes. In the absence of unequivocal hyperglycemia, results should be confirmed by repeat testing. In a patient with classic symptoms of hyperglycemia or hyperglycemic crisis, random plasma glucose results greater than or equal to 200 mg/dL meet the criteria for diagnosis of diabetes. Reference: Standards of Medical Care in Diabetes 2016, [place] Diabetes Association. Diabetes Care. 2016.39(Suppl 1). Performed By: #### 3 051-0, 3023-7, 70338-6, 3 ####[facility] LABCLIA [id number] [place] [address] [place] Potassium [Moles/Vol] 4.2 mmol/L Normal 3.7-5.1 [facility] Comment on above: Order Comment: Tomasz mast Type: BLOOD SPECIMENOrdering Facility: [facility] Address: [address] [address] Performed By: #### 3 051-0, 4-7, 83120-6, 3015-3 ####[facility] LABCLIA [id number] [place] [address] [place] Sodium [Moles/Vol] 140 mmol/L Normal 136-144 [facility] Comment on above: Order Comment: Speci men Type: BLOOD SPECIMENOrdering Facility: [facility] Address: [address] [place] [address] Performed By: #### 3 051-0, 3024-7, 44520-8, 3016-3 ####[facility] LABCLIA [id number] [place] [address] [place] Urea nitrogen [Mass/Vol] 10 mg/dL Normal 7-21 [facility] Comment on above: Order Comment: Speci men Type: BLOOD SPECIMENOrdering Facility: [facility] Address: [address] [place] [address] Performed By: #### 3 051-0, 3024-7, 10045-5, 3016-3 ####[facility] LABCLIA [id number] [place] [address] [place] CNOVon 03-18-2024 CNOV Office Visit (INTMWS ) -------- TIRSO RIOSITH Taylor ([id number]) 1940 F Date Time Provider Department 03/18/24 8:00 AM MARTHA FUNK INTMWS During your visit today, we recorded the following information about you: Pulse Respiration Blood pressure Weight 76/minute 16/minute 122/68 48.4 kg Martha Funk APRN.COLD WORK OPERATOR 03/18/2024 8:34 AM Signed CC: Patient presents with: Recheck: 6 month follow up HPI Paty Rios is a 83 year old female who presents today for routine follow up. Recent shingles episode. Rash to left side of face is healing, no new rashes, and pain improving. Still with some burning sharp pain. Denies fever chills drainage, redness, vision or hearing changes, or fatigue. HTN: Ms. Rios indicates that she is feeling well and denies any symptoms referable to elevated blood pressure. Specifically denies headache, chest pain, palpitations, dyspnea, and peripheral edema. Patient denies any side effects of her medication(s) and is compliant with their regimen. She does check BP's away from this office with average BP's in the 120s/70s range. Paty works out regularly 7 times per week with walking. She watches her diet for sodium, low fat and low cholesterol most of the time. Last 3 Encounter BP Readings: Date: BP: 03/18/2024 122/68 03/05/2024 170/74 03/03/2024 160/76 Hypothyroidism: Takes medication as ordered. Denies any abnormal change in energy or weight. REVIEW OF SYSTEMS See HPI PAST MEDICAL HISTORY No date: Benign neoplasm of colon No date: Disorder of bone and cartilage, unspecified No date: Diverticulosis of colon (without mention of hemorrhage) No date: Essential hypertension, benign No date: Unspecified hypothyroidism PAST SURGICAL HISTORY No date: BIOPSY BREAST OPEN INCISIONAL Comment: Bx of breast, incisional 03/15/2011: COLONOSCOPY FLX DX W/COLLJ SPEC WHEN PFRMD Comment: Colonoscopy No date: DILATION AND CURETTAGE DXAND/THER NONOBSTETRIC Comment: Dilation AND curettage No date: LAPS ABD PRTMANDOMENTUM DX W/WO SPEC BR/WA SPX Comment: Laparoscopy 08-05-11: STEREO LOC FOR CORE BRST BX RT No date: TONSILLECTOMY AND ADENOIDECTOMY Comment: T/A (under age 10 years) 2011: XCAPSL CTR RMVL INSJ IO LENS PROSTH W/O ECP Comment: Phacoemulsification/Intr aocular Lens Insertion 2011: XCAPSL CTRC RMVL INSJ IO LENS PROSTH W/O ECP Comment: Phacoemulsification/Intr aocular Lens Insertion ALLERGIES Augmentin [Amoxicillin-Pot Clavulanate], Fosamax [Alendronate Sodium], Grass Pollen, and Valtrex [Valacyclovir] MEDICATIONS losartan (COZAAR) 25 mg tablet Take 1 tablet by mouth once daily. levothyroxine (LEVOXYL) 100 mcg tablet Take 1 tablet by mouth once daily. atenolol (TENORMIN) 50 mg tablet Take 1 tablet by mouth once daily. hydroCHLOROthiazide 12.5 mg capsule Take 1 capsule by mouth once daily. simvastatin (ZOCOR) 10 mg tablet Take 1 tablet by mouth daily at bedtime. Cetirizine (ZYRTEC) 10 mg ORAL Cap Take by mouth. Take by mouth THERAPEUTIC MULTIVITAMIN ORAL TAB Take one(1) tablet daily. ASPIRIN 81 MG ORAL TAB Take one(1) tablet daily. FAMILY HISTORY Problem Relation Age of Onset Stroke Mother other (chf) Mother other (circulatory problems) Father Arthritis Brother Heart Maternal Grandmother Hypertension Daughter Thyroid Daughter Hypertension Son Hypertension Son Social History Tobacco Use Smoking status: Never Smokeless tobacco: Never Vaping Use Vaping status: Never Used Substance Use Topics Alcohol use: No Drug use: No PHYSICAL EXAM BP 122/68 Pulse 76 Resp 16 Wt 48.4 kg (106 lb 11.2 oz) SpO2 94% BMI 20.84 kg/m? General Appearance: well appearing, in no acute distress, alert Skin: dried healing scabbed rash to left side of chin extending to left ear and one small dried scab 1 for corner of left eye Eyes: conjunctiva pink and moist, no icterus, sclera white, non-injected Neck: Thyroid normal size and symmetric without palpable nodules, Neck supple, No adenopathy Lymph nodes: No cervical lymphadenopathy and No supraclavicular lymphadenopathy Lungs: Lungs clear to auscultation. No wheezing, rhonchi, rales. Heart: RRR without murmur, gallop, or rubs. No ectopy Health maintenance reviewed with patient: Anxiety Screening Never done Covid-19 Vaccine( - 2022- season) due on 03/07/2024 Influenza Vaccine(1) due on 03/07/2024 DTaP,Tdap,Td Vaccine(1 - Tdap) due on 03/19/2024 Shingrix Vaccine(2 of 3) due on 03/19/2024 RSV Vaccine(1 - 1-dose 60+ series) due on 09/16/2024 Diabetes Screening due on 09/09/2026 Bone Density Screening Completed Pneumococcal Vaccine: 65+ Completed Advance Directive Discussion Discontinued DATA REVIEWED: No new labs ASSESSMENT/PLAN: 1. Essential hypertension, benign - ICD9: 401.1, ICD10: I10 (primary diagnosis) - Controlled - Continue current medications - Recommend home blood pressure monitoring, to brin (more content not included)... Normal [facility] T3Free SerPl-mCncon 03-18-20 24 Free T3 [Mass/Vol] 2.6 pg/mL Normal 2.3-4.1 [facility] Comment on above: Order Comment: Speci men Type: BLOOD SPECIMENOrdering Facility: [facility] Address: [address] [place] [address] Performed By: #### 3 051-0, 3024-7, 51303-1, 3016-3 ####[facility] LABCLIA [id number] [place] [address] [place] T4 Free SerPl-mCncon 024 Free T4 [Mass/Vol] 1.6 ng/dL Normal 0.9-1.7 [facility] Comment on above: Order Comment: Speci men Type: BLOOD SPECIMENOrdering Facility: [facility] Address: [address] [place] [address] Performed By: #### 3 051-0, 3024-7, 96710-8, 3016-3 ####[facility] LABCLIA [id number] [place] [address] [place] TSH SerPl-aCncon 03-18-2024 TSH Qn 1.860 m[IU]/L Normal 0.270-4.200 [facility] Comment on above: Order Comment: Speci men Type: BLOOD SPECIMENOrdering Facility: [facility] Address: [address] [place] [address] Performed By: #### 3 051-0, 3024-7, 12684-5, 3016-3 ####[facility] LABCLIA [id number] [place] [address] [place] CNPVivian 03-06-2024 CNPN Telephone ([facility]) -------- PATY RIOS ([id number]) 1940 F Date Time Provider Department 03/06/24 STEPHANIE GARCÍA [facility] During your visit today, we recorded the following information about you: Stephanie García APRN.COLD WORK OPERATOR 03/06/2024 1:04 PM Signed Called with patient informed that culture revealed shingles. GFR 72, started on Valtrex. Recommend to call ENT on Friday for evaluation. Tylenol/ibuprofen as needed for pain. Stephanie García APRN.COLD WORK OPERATOR Allergies As of Date: 03/06/2024 Noted Allergy Reaction AUGMENTIN (AMOXICILLIN-POT CLAVUL*10/15/2017 2 - Rash 6 - Diarrhea 7 - Swelling 14 - Other: See Comments Comments: stomach cramping FOSAMAX (ALENDRONATE SODIUM) 12/08/2006 5 - Intolerance Comments: Diffuse myalgias, arms AND legs GRASS POLLEN 04/01/2005 Date Reviewed: 03/05/2024 Reviewed by: Lizbet Pham MA - Fully Assessed Reason for Visit: Results [95] Order(s):valACYclovir (VALTREX) 1 gram tabletTake 1 tablet by mouth three times a day for 7 days.Disp: 21 tabletRfl: 0 Prescriptions as of 03/06/2024 - valACYclovir (VALTREX) 1 gram tablet Take 1 tablet by mouth three times a day for 7 days. - ofloxacin (FLOXIN) 0.3 % otic solution Use 5 Drops in the left ear two times a day for 7 days. - losartan (COZAAR) 25 mg tablet Take 1 tablet by mouth once daily. - predniSONE (DELTASONE) 20 mg tablet Take 2 tablets by mouth once daily for 5 days. - levothyroxine (LEVOXYL) 100 mcg tablet Take 1 tablet by mouth once daily. - atenolol (TENORMIN) 50 mg tablet Take 1 tablet by mouth once daily. - hydroCHLOROthiazide 12.5 mg capsule Take 1 capsule by mouth once daily. - simvastatin (ZOCOR) 10 mg tablet Take 1 tablet by mouth daily at bedtime. - Cetirizine (ZYRTEC) 10 mg ORAL Cap Take by mouth. Take by mouth - THERAPEUTIC MULTIVITAMIN ORAL TAB Take one(1) tablet daily. - ASPIRIN 81 MG ORAL TAB Take one(1) tablet daily. 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 Encounter Status:Closed by STEPHANIE GARCÍA on 03/06/24 [facility] CARIEOVmian 03-05-2024 CNOV Office Visit (UCTR ) -------- PATY RIOS ([id number]) 1940 F Date Time Provider Department 03/05/24 7:45 AM STEPHANIE GARCÍA [facility] During your visit today, we recorded the following information about you: Temperature Pulse Respiration Blood pressure 99.2 degrees 66/minute 18/minute 170/74 Weight 50.6 kg Ricky, APRN. StephanieCOLD WORK OPERATOR 03/05/2024 8:46 AM Signed Subjective The history is provided by the patient. No heavy equipment service manager was used. HPI Paty Rios is a 83 year old female who presents today for CC of blistered lesions on mouth and left ear pain. On Friday she started with hives on face, she started a new generic medication and had a reaction, was given prednisone, which hives are better. However over the past 2 days developed blisters on lip, and left ear pain. She denies any new changes BP 170/74 Pulse 66 Temp 37.3 ?C (99.2 ?F) Resp 18 Wt 50.6 kg (111 lb 8.8 oz) SpO2 96% BMI 21.79 kg/m? Social History Tobacco Use Smoking status: Never Smokeless tobacco: Never Vaping Use Vaping status: Never Used Substance Use Topics Alcohol use: No Drug use: No PAST MEDICAL HISTORY No date: Benign neoplasm of colon No date: Disorder of bone and cartilage, unspecified No date: Diverticulosis of colon (without mention of hemorrhage) No date: Essential hypertension, benign No date: Unspecified hypothyroidism I have confirmed and edited as necessary, the [facility] Review of Systems Constitutional: Negative for chills and fever. HENT: Positive for ear pain (left). Blisters on bottom lip Musculoskeletal: Negative for joint pain and myalgias. Skin: Negative for itching and rash. All other systems reviewed and are negative. Objective Physical Exam Vitals and nursing note reviewed. HENT: Right Ear: Hearing, tympanic membrane, ear canal and external ear normal. Left Ear: Tenderness (erythematous canal) present. Ears: Comments: Appears to be blistered lesion on tm Pulmonary: Effort: Pulmonary effort is normal. Skin: General: Skin is warm and dry. Neurological: Mental Status: She is alert and oriented to person, place, and time. Psychiatric: Mood and Affect: Affect normal. ASSESSMENT/PLAN: 1. Oral lesion - ICD9: 528.9, ICD10: K13.70 (primary diagnosis) Appears to be possible hsv, shingles, allergic reaction Culture done, will call with results and treatment - HSV1,2/VZV NAAT LESION 2. Left ear pain - ICD9: 388.70, ICD10: H92.02 Canal erythematous, will place on ofloxacin for otitis externa If shingles or hsv will start valtrex Diagnosis and treatment plan were discussed and questions were answered to the patient's satisfaction. Pt acknowledged understanding of concepts and follow up plan. Specific signs and symptoms that would indicate the need for higher level of care were discussed in detail warranting prompt ER evaluation. MARCUS Price Tonya, APRN.CNP 03/05/2024 8:07 AM Signed Will send culture for cold sore, and notify of results Ofloxacin drops to right ear Pepcid 20 mg twice a day for 10 days Zyrtec 10 mg By mouth daily at bedtime Allergies As of Date: 03/05/2024 Noted Allergy Reaction AUGMENTIN (AMOXICILLIN-POT CLAVUL*10/15/2017 2 - Rash 6 - Diarrhea 7 - Swelling 14 - Other: See Comments Comments: stomach cramping FOSAMAX (ALENDRONATE SODIUM) 12/08/2006 5 - Intolerance Comments: Diffuse myalgias, arms AND legs GRASS POLLEN 04/01/2005 Date Reviewed: 03/05/2024 Reviewed by: Lizbet Pham MA - Fully Assessed Reason for Visit: Mouth/Lip Problem [68] Cmt: Blisters in and around mouth x3 days, medication reaction Primary Visit Diagnosis:Oral lesion [K13.70] Other Visit Diagnosis:Left ear pain [H92.02] Order(s):ofloxacin (FLOXIN) 0.3 % otic solutionUse 5 Drops in the left ear two times a day for 7 days.Disp: 4 mLRfl: 0 HSV1,2/VZV NAAT LESION [SQHSVVZV] Order #: [id number] FUTURE HSV1,2/VZV NAAT LESION [SQHSVVZV] Order #: [id number]. #:[id number] Prescriptions as of 03/05/2024 - ofloxacin (FLOXIN) 0.3 % otic solution Use 5 Drops in the left ear two times a day for 7 days. - losartan (COZAAR) 25 mg tablet Take 1 tablet by mouth once daily. - predniSONE (DELTASONE) 20 mg tablet Take 2 tablets by mouth once daily for 5 days. - levothyroxine (LEVOXYL) 100 mcg tablet Take 1 tablet by mouth once daily. - atenolol (TENORMIN) 50 mg tablet Take 1 tablet by mouth once daily. - hydroCHLOROthiazide 12.5 mg capsule Take 1 capsule by mouth once daily. - simvastatin (ZOCOR) 10 mg tablet Take 1 tablet by mouth daily at bedtime. - Cetirizine (ZYRTEC) 10 mg ORAL Cap Take by mouth. Take by mouth - THERAPEUTIC MULTIVITAMIN ORAL TAB Take one(1) tablet daily. - ASPIRIN 81 MG ORAL TAB Take one(1) tablet daily. Problem List As Of Date 03/05/2024 Noted Resolved Essential hypertension, benign [I10] 04/01/2005 (more content not included)... Normal [facility] HSV+VZV DNA PRABHJOT+probe Ql (Un sp spec)on 03-05-2024 HSV 1 DNA PRABHJOT+probe Ql (Unsp spec) Not detected Normal Not Detected [facility] Comment on above: Order Comment: Speci men Type: SWABOrdering Facility: [facility] Address: [address] [place] [address] Performed By: #### 3 3027-4 ####[facility] LABCLIA [id number] [place] [address] [place] HSV 2 DNA PRABHJOT+probe Ql (Unsp spec) Not detected Normal Not Detected [facility] Comment on above: Order Comment: Zachariahi pro Type: SWABOrdering Facility: [facility] Address: [address] [place] [address] Performed By: #### 3 3027-4 ####[facility] LABCLIA [id number] [place] [address] [place] VZV DNA PRABHJOT+probe Ql (Unsp spec) Detected Abnormal Not Detected [facility] Comment on above: Order Comment: Speci men Type: SWABOrdering Facility: [facility] Address: [address] [place] [address] Performed By: #### 3 3027-4 ####[facility] LABCLIA [id number] [place] [address] [place] CNOVon 03-03-2024 [facility] PATY RIOS ([id number]) 1940 F Date Time Provider Department 03/03/24 2:30 PM CLAUDIO CAVAZOS [facility] During your visit today, we recorded the following information about you: Temperature Pulse Respiration Blood pressure 98.9 degrees 77/minute 21/minute 160/76 Weight 50.9 kg Claudio Cavazos APRN.COLD WORK OPERATOR 03/03/2024 2:44 PM Signed Subjective Patient came in with complaints of hives on left side of her face and ear. Patient says the pharmacy changed the brand of her simvastatin. Patient says this happened last time they changed the brand she also got swelling and hives. Patient says she did have some steroids last time and that seemed to help. Patient is going to contact the primary care about medication and swelling. Patient has no swelling on lips or tongue. Patient has no difficulty breathing or swallowing. Patient says the hives do itch. Patient denies any other symptoms at this time. The history is provided by the patient. No heavy equipment service manager was used. Rash Review of Systems Constitutional: Negative. Skin: Positive for itching and rash. Objective Physical Exam Constitutional: Appearance: Normal appearance. HENT: Head: Comments: Patient does have blanchable hives in the area marked above. Pulmonary: Effort: Pulmonary effort is normal. Neurological: Mental Status: She is alert. PAST MEDICAL HISTORY No date: Benign neoplasm of colon No date: Disorder of bone and cartilage, unspecified No date: Diverticulosis of colon (without mention of hemorrhage) No date: Essential hypertension, benign No date: Unspecified hypothyroidism PAST SURGICAL HISTORY No date: BIOPSY BREAST OPEN INCISIONAL Comment: Bx of breast, incisional 03/15/2011: COLONOSCOPY FLX DX W/COLLJ SPEC WHEN PFRMD Comment: Colonoscopy No date: DILATION AND CURETTAGE DXAND/THER NONOBSTETRIC Comment: Dilation AND curettage No date: LAPS ABD PRTMANDOMENTUM DX W/WO SPEC BR/WA SPX Comment: Laparoscopy 1-30-12: STEREO LOC FOR CORE BRST BX RT No date: TONSILLECTOMY AND ADENOIDECTOMY Comment: T/A (under age 10 years) 2011: XCAPSL CTRC RMVL INSJ IO LENS PROSTH W/O ECP Comment: Phacoemulsification/Intr aocular Lens Insertion 2011: XCAPSL CTRC RMVL INSJ IO LENS PROSTH W/O ECP Comment: Phacoemulsification/Intr aocular Lens Insertion ALLERGIES Augmentin [Amoxicillin-Pot Clavulanate], Fosamax [Alendronate Sodium], and Grass Pollen MEDICATIONS losartan (COZAAR) 25 mg tablet Take 1 tablet by mouth once daily. levothyroxine (LEVOXYL) 100 mcg tablet Take 1 tablet by mouth once daily. atenolol (TENORMIN) 50 mg tablet Take 1 tablet by mouth once daily. hydroCHLOROthiazide 12.5 mg capsule Take 1 capsule by mouth once daily. simvastatin (ZOCOR) 10 mg tablet Take 1 tablet by mouth daily at bedtime. Cetirizine (ZYRTEC) 10 mg ORAL Cap Take by mouth. Take by mouth THERAPEUTIC MULTIVITAMIN ORAL TAB Take one(1) tablet daily. ASPIRIN 81 MG ORAL TAB Take one(1) tablet daily. predniSONE (DELTASONE) 20 mg tablet Take 2 tablets by mouth once daily for 5 days. FAMILY HISTORY Problem Relation Age of Onset Stroke Mother other (chf) Mother other (circulatory problems) Father Arthritis Brother Heart Maternal Grandmother Hypertension Daughter Thyroid Daughter Hypertension Son Hypertension Son Social History Tobacco Use Smoking status: Never Smokeless tobacco: Never Vaping Use Vaping status: Never Used Substance Use Topics Alcohol use: No Drug use: No ASSESSMENT/PLAN: 1. Hives - ICD9: 708.9, ICD10: L50.9 - PREDNISONE 20 MG TABLET Patient was educated about proper use of medication and supportive therapies. Patient will follow-up if signs and symptoms seem to be getting worse not better. Patient was okay with this care plan. Patient will follow-up with primary care about cholesterol medicine causing hives 2 different times when brands were switched. Claudio Cavazos APRN.COLD WORK OPERATOR Allergies As of Date: 03/03/2024 Noted Allergy Reaction AUGMENTIN (AMOXICILLIN-POT CLAVUL*10/15/2017 2 - Rash 6 - Diarrhea 7 - Swelling 14 - Other: See Comments Comments: stomach cramping FOSAMAX (ALENDRONATE SODIUM) 12/08/2006 5 - Intolerance Comments: Diffuse myalgias, arms AND legs GRASS POLLEN 04/01/2005 Date Reviewed: 03/03/2024 Reviewed by: Opal Anne MA - Fully Assessed Reason for Visit: Rash [1087] Cmt: Rash on left side of face by mouth, left ear pain x 2 days Primary Visit Diagnosis:Hives [L50.9] Order(s):predniSONE (DELTASONE) 20 mg tabletTake 2 tablets by mouth once daily for 5 days.Disp: 10 tabletRfl: 0 Prescriptions as of 03/03/2024 - losartan (COZAAR) 25 mg tablet Take 1 tablet by mouth once daily. - predniSONE (DELTASONE) 20 mg tablet Take 2 tablets by mouth once daily for 5 days. - levothyroxine (LEVOXYL) 100 mcg tablet Take 1 tablet by mouth once daily. (more content not included)... Normal [facility] T4 Free SerPl-mCncon 024 Free T4 [Mass/Vol] 1.4 ng/dL Normal 0.9-1.7 [facility] Comment on above: Order Comment: Speci men Type: BLOOD SPECIMENOrdering Facility: [facility] Address: [address] [place] [address] Performed By: #### 3 016-3, 3024-7 ####[facility] LABCLIA [id number] [address] [place] TSH SerPl-aCncon 10-21-2023 TSH Qn 2.010 m[IU]/L Normal 0.270-4.200 [facility] Comment on above: Order Comment: Speci men Type: BLOOD SPECIMENOrdering Facility: [facility] Address: [address] [place] [address] Performed By: #### 3 016-3, 3024-7 ####[facility] LABCLIA [id number] [place] [address] [place] CNOVon 09-17-2023 CNOV Office Visit (INTMWS ) -------- PATY RIOS ([id number]) 1940 F Date Time Provider Department 09/17/23 8:00 AM MILAGROS MARTHA INTALDO During your visit today, we recorded the following information about you: Pulse Respiration Blood pressure Weight 64/minute 16/minute 130/76 49.9 kg Martha Funk APRN.COLD WORK OPERATOR 09/17/2023 8:41 AM Signed Paty Rios is a 83 year old female here for a Medicare wellness visit. Medicare Health Risk Assessment General Health Excellent Exercise: Minutes/Day 30 min Exercise: Days/Week 5 days Alcohol: Daily Use Never Alcohol: Drinks/Day Patient does not drink Alcohol: 6 or more drinks Never Feel off balance None Concerns: Teeth/Dentures None Concerns: Sexual function None Troubled by feelings None Frequency: Eating healthy diet Most of the time ADLs requiring help None Safety precautions in home/vehicle No grab bars in bathroom Smoke, vape, chews tobacco none Difficulty hearing None Difficulty seeing None - wears glasses as prescribed Current Providers Specialists: I have reviewed specialist-related care of the patient in the medical record. Optometry: Dr Shelton Medical/Family history review Reviewed and updated problem list, medical/surgical/family/ social history, medications, and allergies. Opioid use review Opioid Medications (last 90 days) No data to display Depression screening Depression Screening PHQ-2 Score PHQ-9 Score 09/16/2023 0 0 Depression screening tool completed and reviewed. Based on score and interview, patient is not at risk for depression. Screening tool discussed with patient, and I recommended no further intervention at this time. Cognitive screening Mini Cog Score: 5 Cognitive screening reviewed and no further action needed (score 3-5) Functional Observation Was the patient's Timed Up AND Go test unsteady or ? 12 seconds? No Advance Care Planning Surrogate decision maker and/or advance care plan documented Measurements BP 130/76 Pulse 64 Resp 16 Wt 110 lb (49.9kg) SpO2 97% Follows closely with optometry Additional screenings: No results found. Assessment/Plan Medicare annual wellness visit, subsequent (Z00.00) - Counseled on healthy diet and regular exercise - Fall avoidance information provided - Personalized prevention plan provided CC: Patient presents with: Medicare Wellness Exam: Annual Medicare Wellness HPI Paty Rios is a 83 year old female who presents today for medicare wellness. HTN and HLD: Ms. Rios indicates that she is feeling well and denies any symptoms referable to elevated blood pressure. Specifically denies headache, chest pain, palpitations, dyspnea, and peripheral edema. Patient denies any side effects of her medication(s) and is compliant with their regimen. She does check BP's away from this office with average BP's in the 120s-130s/60s range. Paty works out regularly with walking when the weather is night. She watches her diet for sodium, low fat and low cholesterol most of the time. Last 3 Encounter BP Readings: Date: BP: 09/17/2023 130/76 03/19/2023 124/76 11/28/2022 128/82 Hypothyroidism: TSH slightly high. No missed doses or other changes. Denies fatigue, changes in weight, hair/nail/skin concerns, or edema. 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, unspecified Diverticulosis of colon (without mention of hemorrhage) Essential hypertension, benign Unspecified hypothyroidism PAST SURGICAL HISTORY Procedure Laterality Date BIOPSY BREAST OPEN INCISIONAL Bx of breast, incisional COLONOSCOPY FLX DX W/COLLJ SPEC WHEN PFRMD 03/15/2011 Colonoscopy DILATION AND CURETTAGE DXAND/THER NONOBSTETRIC Dilation AND curettage LAPS ABD PRTMANDOMENTUM DX W/WO SPEC BR/WA SPX Laparoscopy STEREO LOC FOR CORE BRST BX RT 08-05-11 TONSILLECTOMY AND ADENOIDECTOMY T/A (under age 12 years) XCAPSL CTRC RMVL INSJ IO LENS PROSTH W/O ECP 2010 Phacoemulsification/Intr aocular Lens Insertion XCAPSL CTRC RMVL INSJ IO LENS PROSTH W/O ECP 2010 Phacoemulsification/Intr aocular Lens Insertion ALLERGIES Augmentin [Amoxicillin-Pot Clavulanate], Fosamax [Alendronate Sodium], Grass Pollen, Leaves [Other], and Weeds [Other] MEDICATIONS losartan (COZAAR) 25 mg tablet Take 1 tablet by mouth once daily. levothyroxine (LEVOXYL) 100 mcg tablet Take 1 tablet by mouth once daily. On all days of the week except on Friday take half tablet atenolol (TENORMIN) 50 mg tablet Take 1 tablet by mouth once daily. hydroCHLOROthiazide 12.5 mg capsule Take 1 capsule by mouth once daily. simvastatin (ZOCOR) 10 mg tablet Take 1 tablet by mouth daily at bedtime. Cetirizine (ZYRTEC) 10 mg ORAL Cap Take by mouth. Take by mouth THERAPEUTIC MULTIVITAMIN ORAL TAB Take one(1) tablet daily. ASPIRIN 81 MG ORAL TAB Take one(1) tablet daily. (more content not included)... Normal [facility] Vital Signs Date Time Vital Sign Value Performing Clinician Pearl dietrich 09-14-2024 08:00-0400 Body height 150 cm Russ Barone MD Work Phone: [facility] 09-14-2024 08:00-0400 Body mass index (BMI) [Ratio] 21.57 kg/m2 Russ Barone MD Work Phone: [facility] 09-14-2024 08:00-0400 Body weight 48.53 kg Russ Barone MD Work Phone: [facility] 09-14-2024 08:00-0400 Diastolic blood pressure 68 mm[Hg] Russ Barone MD Work Phone: [facility] 09-14-2024 08:00-0400 Heart rate 73 /min Russ Barone MD Work Phone: [facility] 09-14-2024 08:00-0400 SaO2% (BldA) [Mass fraction] 97 % Russ Barone MD Work Phone: [facility] 09-14-2024 08:00-0400 Systolic blood pressure 118 mm[Hg] Russ Barone MD Work Phone: [facility] 03-18-2024 07:59-0400 Body mass index (BMI) [Ratio] 20.84 kg/m2 Martha Older SENIOR IOS DEVELOPER.COLD WORK OPERATOR Work Phone: [facility] 03-18-2024 07:59-0400 Body weight 48.4 kg Martha Older SENIOR IOS DEVELOPER.COLD WORK OPERATOR Work Phone: [facility] 03-18-2024 07:59-0400 Diastolic blood pressure 68 mm[Hg] Martha Older SENIOR IOS DEVELOPER.COLD WORK OPERATOR Work Phone: [facility] 03-18-2024 07:59-0400 Heart rate 76 /min Martha Older SENIOR IOS DEVELOPER.COLD WORK OPERATOR Work Phone: [facility] 03-18-2024 07:59-0400 Respiratory rate 16 /min Martha Older SENIOR IOS DEVELOPER.COLD WORK OPERATOR Work Phone: [facility] 03-18-2024 07:59-0400 SaO2% (BldA) [Mass fraction] 94 % Martha Older SENIOR IOS DEVELOPER.COLD WORK OPERATOR Work Phone: [facility] 03-18-2024 07:59-0400 Systolic blood pressure 122 mm[Hg] Martha Older SENIOR IOS DEVELOPER.COLD WORK OPERATOR Work Phone: [facility] 03-05-2024 07:44-0400 Body mass index (BMI) [Ratio] 21.79 kg/m2 Stephanie Ricky SENIOR IOS DEVELOPER.COLD WORK OPERATOR Work Phone: [facility] 03-05-2024 07:44-0400 Body temperature 99.19 [degF] Stephanie Ricky SENIOR IOS DEVELOPER.COLD WORK OPERATOR Work Phone: [facility] 03-05-2024 07:44-0400 Body weight 50.6 kg Stephanie Ricky SENIOR IOS DEVELOPER.COLD WORK OPERATOR Work Phone: [facility] 03-05-2024 07:44-0400 Diastolic blood pressure 74 mm[Hg] Stephanie Ricky SENIOR IOS DEVELOPER.COLD WORK OPERATOR Work Phone: [facility] 03-05-2024 07:44-0400 Heart rate 66 /min Stephanie Ricky SENIOR IOS DEVELOPER.COLD WORK OPERATOR Work Phone: [facility] 03-05-2024 07:44-0400 Respiratory rate 18 /min Stephanie Ricky SENIOR IOS DEVELOPER.COLD WORK OPERATOR Work Phone: [facility] 03-05-2024 07:44-0400 SaO2% (BldA) [Mass fraction] 96 % Stephanie García SENIOR IOS DEVELOPER.COLD WORK OPERATOR Work Phone: [facility] 03-05-2024 07:44-0400 Systolic blood pressure 170 mm[Hg] Stephanie García SENIOR IOS DEVELOPER.COLD WORK OPERATOR Work Phone: [facility] 03-03-2024 14:27-0400 Body mass index (BMI) [Ratio] 21.92 kg/m2 Claudio Cavazos APRN.COLD WORK OPERATOR Work Phone: [facility] 03-03-2024 14:27-0400 Body temperature 98.91 [degF] Claudio Cavazos APRN.COLD WORK OPERATOR Work Phone: [facility] 03-03-2024 14:27-0400 Body weight 50.9 kg Claudio Cavazos APRN.COLD WORK OPERATOR Work Phone: [facility] 03-03-2024 14:27-0400 Diastolic blood pressure 76 mm[Hg] Claudio Cavazos APRN.COLD WORK OPERATOR Work Phone: [facility] 03-03-2024 14:27-0400 Heart rate 77 /min Claudio Cavazos APRN.COLD WORK OPERATOR Work Phone: [facility] 03-03-2024 14:27-0400 Respiratory rate 21 /min Claudio Cavazos APRN.COLD WORK OPERATOR Work Phone: [facility] 03-03-2024 14:27-0400 SaO2% (BldA) [Mass fraction] 97 % Claudio Cavazos APRN.COLD WORK OPERATOR Work Phone: [facility] 03-03-2024 14:27-0400 Systolic blood pressure 160 mm[Hg] Claudio Cavazos APRN.COLD WORK OPERATOR Work Phone: [facility] 09-17-2023 08:01-0400 Body weight 49.9 kg Martha Funk SENIOR IOS DEVELOPER.COLD WORK OPERATOR Work Phone: [facility] 09-17-2023 08:01-0400 Diastolic blood pressure 76 mm[Hg] Martha Older SENIOR IOS DEVELOPER.COLD WORK OPERATOR Work Phone: [facility] 09-17-2023 08:01-0400 Heart rate 64 /min Martha Older SENIOR IOS DEVELOPER.COLD WORK OPERATOR Work Phone: [facility] 09-17-2023 08:01-0400 Respiratory rate 16 /min Martha Older SENIOR IOS DEVELOPER.COLD WORK OPERATOR Work Phone: [facility] 09-17-2023 08:01-0400 SaO2% (BldA) [Mass fraction] 97 % Martha Older SENIOR IOS DEVELOPER.COLD WORK OPERATOR Work Phone: [facility] 09-17-2023 08:01-0400 Systolic blood pressure 130 mm[Hg] Martha Older SENIOR IOS DEVELOPER.COLD WORK OPERATOR Work Phone: [facility] 03-19-2023 08:01-0400 Body weight 50.35 kg Martha Older SENIOR IOS DEVELOPER.COLD WORK OPERATOR Work Phone: [facility] 03-19-2023 08:01-0400 Diastolic blood pressure 76 mm[Hg] Martha Older SENIOR IOS DEVELOPER.COLD WORK OPERATOR Work Phone: [facility] 03-19-2023 08:01-0400 Heart rate 68 /min Martha Older SENIOR IOS DEVELOPER.COLD WORK OPERATOR Work Phone: [facility] 03-19-2023 08:01-0400 Respiratory rate 16 /min Martha Older SENIOR IOS DEVELOPER.COLD WORK OPERATOR Work Phone: [facility] 03-19-2023 08:01-0400 SaO2% (BldA) [Mass fraction] 97 % Martha Older SENIOR IOS DEVELOPER.COLD WORK OPERATOR Work Phone: [facility] 03-19-2023 08:01-0400 Systolic blood pressure 124 mm[Hg] Martha Older SENIOR IOS DEVELOPER.COLD WORK OPERATOR Work Phone: [facility] 09-16-2022 08:31-0400 Body height 152.4 cm Russ Barone MD Work Phone: [facility] 09-16-2022 08:31-0400 Body temperature 97.3 [degF] Russ Barone MD Work Phone: [facility] 09-16-2022 08:31-0400 Body weight 50.8 kg Russ Barone MD Work Phone: [facility] 09-16-2022 08:31-0400 Diastolic blood pressure 60 mm[Hg] Russ Barone MD Work Phone: [facility] 09-16-2022 08:31-0400 Heart rate 64 /min Russ Barone MD Work Phone: [facility] 09-16-2022 08:31-0400 Respiratory rate 12 /min Russ Barone MD Work Phone: [facility] 09-16-2022 08:31-0400 SaO2% (BldA) [Mass fraction] 97 % Russ Barone MD Work Phone: [facility] 09-16-2022 08:31-0400 Systolic blood pressure 120 mm[Hg] Russ Barone MD Work Phone: [facility] 03-18-2022 08:40-0400 Body weight 49.9 kg Russ Barone MD Work Phone: [facility] 03-18-2022 08:40-0400 Diastolic blood pressure 62 mm[Hg] Russ Barone MD Work Phone: [facility] 03-18-2022 08:40-0400 Heart rate 60 /min Russ Barone MD Work Phone: [facility] 03-18-2022 08:40-0400 Respiratory rate 16 /min Russ Barone MD Work Phone: [facility] 03-18-2022 08:40-0400 Systolic blood pressure 120 mm[Hg] Russ Barone MD Work Phone: [facility] Encounters Encounter Date Encounter Type Care Provider Facility Start: 12-08-2024 End: 12-09-2024 Refill Russ Barone MD Work Phone: [facility] [place] Comment on above: Refill Request Start: 10-18-2024 End: 10-20-2024 Refill Martha Funk APRN.CNP Work Phone: [facility] [place] Comment on above: Refill Request Start: 09-24-2024 End: 09-24-2024 Refill Martha Funk SENIOR IOS DEVELOPER.COLD WORK OPERATOR Work Phone: [facility] [place] Comment on above: Refill Request Start: 09-23-2024 End: 09-23-2024 Refill Martha Funk SENIOR IOS DEVELOPER.COLD WORK OPERATOR Work Phone: [facility] [place] Comment on above: Refill Request Start: 09-14-2024 End: 09-14-2024 ambulatory [facility] Facility:[facility] Start: 09-14-2024 End: 09-14-2024 Office outpatient visit 25 minutes Russ Barone MD Work Phone: [facility] [place] Comment on above: Medicare annual well ness visit, subsequent (Primary Dx); Encounter for immunization; Arthritis of carpometacarpal (CMC) joint of right thumb; Medication management; Hypothyroidism, unspecified type; Essential hypertension, benign Start: 09-14-2024 End: 09-14-2024 Patient encounter procedure Russ Barone MD Work Phone: [facility] Start: 09-10-2024 End: 11-10-2024 Follow-up encounter Martha Funk APRN.COLD WORK OPERATOR Work Phone: [facility] [place] Start: 09-08-2024 End: 09-08-2024 [facility] Start: 09-08-2024 Patient encounter [facility] Start: 08-28-2024 End: 09-01-2024 Refill Vanessa Andrews SENIOR IOS DEVELOPER.COLD WORK OPERATOR Work Phone: [facility] Comment on above: Refill Request Start: 05-05-2024 End: 05-05-2024 Patient encounter procedure [facility] [place] Work Phone: [facility] [place] Start: 05-05-2024 End: 05-05-2024 ambulatory [facility] [place] Work Phone: [facility] [place] Start: 04-28-2024 ambulatory [facility] Facility:[facility] Start: 04-28-2024 End: 04-29-2024 Telephone encounter Russ Barone MD Work Phone: [facility] [place] Comment on above: Orders; Immunization s (Flu vaccination) Start: 04-07-2024 End: 04-07-2024 ambulatory Martha Funk SENIOR IOS DEVELOPER.COLD WORK OPERATOR Work Phone: [facility] [place] Comment on above: Flu shot Start: 03-19-2024 End: 03-22-2024 Telephone encounter Martha Funk SENIOR IOS DEVELOPER.COLD WORK OPERATOR Work Phone: [facility] [place] Comment on above: Results Start: 03-18-2024 End: 03-18-2024 [facility] Facility:[facility] Start: 03-18-2024 End: 03-18-2024 Patient encounter procedure Martha Funk SENIOR IOS DEVELOPER.COLD WORK OPERATOR Work Phone: [facility] [place] Comment on above: Essential hypertensi on, benign (Primary Dx); Hypothyroidism, unspecified type; Herpes zoster without complication; Annual physical exam Start: 03-06-2024 End: 03-06-2024 Telephone encounter Stephanie García SENIOR IOS DEVELOPER.COLD WORK OPERATOR Work Phone: [facility] Comment on above: Results Start: 03-05-2024 End: 03-05-2024 [facility] RUSS BARONE Facility:[facility] Start: 03-05-2024 End: 03-05-2024 Patient encounter procedure Stephanie García SENIOR IOS DEVELOPER.COLD WORK OPERATOR Work Phone: [facility] Comment on above: Oral lesion (Primary Dx); Left ear pain Start: 03-03-2024 End: 03-03-2024 Refill Manasa Nikolai SENIOR IOS DEVELOPER.COLD WORK OPERATOR Work Phone: [facility] Comment on above: Refill Request Hives (Primary Dx) Start: 10-21-2023 End: 10-21-2023 [facility] Facility:[facility] Start: 09-17-2023 End: 09-17-2023 [facility] Facility:[facility] Start: 09-17-2023 End: 09-17-2023 Patient encounter procedure Martha Funk SENIOR IOS DEVELOPER.COLD WORK OPERATOR Work Phone: [facility] [place] Comment on above: Medicare annual well ness visit, subsequent (Primary Dx); Hypothyroidism, unspecified type; Essential hypertension, benign; Mixed hyperlipidemia; Medication management Start: 09-03-2023 Refill Martha Funk PUMA .COLD WORK OPERATOR Work Phone: [facility] Comment on above: Refill Request Start: 03-19-2023 End: 03-19-2023 Patient encounter procedure Martha Funk PUMA.COLD WORK OPERATOR Work Phone: [facility] [place] Comment on above: Essential hypertensi on, benign (Primary Dx); Mixed hyperlipidemia; Hypothyroidism, unspecified type; Need for influenza vaccination; Annual physical exam Start: 03-18-2023 Telephone encounter Claudio Cavazos APRN.COLD WORK OPERATOR Work Phone: [facility] Comment on above: Results Start: 03-05-2023 Get Medical Advice Jarocho Antonio MD Work Phone: [facility] Comment on above: refill Losartan Start: 09-16-2022 End: 09-16-2022 Patient encounter procedure Russ Barone MD Work Phone: [facility] [place] Comment on above: Elevated MCV (Primar y Dx); Hypothyroidism, unspecified type; Essential hypertension, benign; Mixed hyperlipidemia Start: 09-14-2022 Telephone encounter Russ rodriguez MD Work Phone: [facility] [place] Comment on above: Results Start: 03-18-2022 End: 03-18-2022 Patient encounter procedure Russ Barone MD Work Phone: [facility] [place] Comment on above: Essential hypertensi on, benign (Primary Dx); Need for influenza vaccination; Mixed hyperlipidemia; Hypothyroidism, unspecified type; Elevated blood sugar Start: 03-05-2022 ambulatory Russ Santiago Work Phone: [facility] [place] Start: 10-04-2021 Refill Cedric MCPHERSONCOLD WORK OPERATOR Work Phone: [facility] [place] Comment on above: Refill Request Procedures Date Procedure Procedure Detail Performing Clinician Start: 03-19-2023 INFLUENZA VACCINE, A GE 6 MO - 64 YR, QUADRIVALENT (AFLURIA, FLULAVAL, FLUZONE) Martha Milagros BLANCACOLD WORK OPERATOR Work Phone: Start: 03-18-2022 INFLUENZA VACCINE QUADRIVALENT 6 MO - 64 YRS IM Russ Barone MD Work Phone: Plan of Treatment Date Care Activity Detail Author Start: 09-09-2027 [facility] Start: 03-18-2027 [facility] Start: 09-09-2026 Diabetes Screening Diabetes [facility] Start: 09-11-2025 DIABETES SCREEN DIABETES SCREEN [facility] Start: 09-11-2025 Diabetes Screening Diabetes Screenny g [facility] Start: 03-21-2025 End: 03-21-2025 Patient encounter procedure 03/21/2025 9:00 AM EDT Office Visit [facility] [place] [address] [place] [id number] Russ Barone MD [address] [place] [address] 6 month follow up [facility] [place] Comment on above: 6 month follow up Start: 03-18-2025 Covid-19 Vaccine ( season) Covid-19 Vaccine ( season) [facility] Comment on above: Postponed from 03/07 (Declined at this time) Start: 03-18-2025 Covid-19 Vaccine ( season) Covid-19 Vaccine ( season) [facility] Comment on above: Postponed from 03/07 (Declined at this time) Start: 01-03-2025 Influenza vaccination Influenza Vacc ine (#1) [facility] Comment on above: Postponed from 03/07 (Declined at this time) Start: 09-16-2024 RSV Vaccine (1 - 1-d ose 60+ series) RSV Vaccine (1 - 1-dose 60+ series) [facility] Comment on above: Postponed from 08/12 (Declined at this time) Start: 09-16-2024 RSV Vaccine (1 - 1-d ose 75+ series) RSV Vaccine (1 - 1-dose 75+ series) [facility] Comment on above: Postponed from 08/12 (Declined at this time) Start: 09-14-2024 End: 09-14-2024 Patient encounter procedure 09/14/2024 8:00 AM EDT Office Visit [facility] [place] [address] [facility] [place] [address] Russ Barone MD [address] [place] [id number] Medicare Wellness [facility] [place] Comment on above: Medicare Wellness Start: 09-10-2024 DIABETES SCREEN DIABETES SCREEN [facility] Start: 09-08-2024 End: 09-08-2024 ambulatory 09/08/2024 8:45 AM EST Results Only [facility] [address] [facility] [place] [address] [facility] Start: 09-06-2024 End: 12-06-2024 CBC panel - Blood by Automated count COMPLETE BLOOD COUNT Lab Routine Annual physical exam Expected: 09/06/2024 (Approximate), Expires: 12/06/2024 [facility] Comment on above: Expected: 09/06/2024 (Approximate), Expires: 12/06/2024 Start: 09-06-2024 End: 12-06-2024 Comprehensive metabolic 2000 panel - Serum or Plasma COMPREHENSIVE METABOLIC PANEL Lab Routine Annual physical exam Expected: 09/06/2024 (Approximate), Expires: 12/06/2024 [facility] Comment on above: Expected: 09/06/2024 (Approximate), Expires: 12/06/2024 Start: 09-06-2024 End: 12-06-2024 Lipid 1996 panel - Serum or Plasma LIPID PANEL BASIC Lab Routine Annual physical exam Expected: 09/06/2024 (Approximate), Expires: 12/06/2024 [facility] Comment on above: Expected: 09/06/2024 (Approximate), Expires: 12/06/2024 Start: 09-06-2024 End: 12-06-2024 Thyrotropin [Units/volume] in Serum or Plasma THYROID STIMULATING HORMONE Lab Routine Hypothyroidism, unspecified type Expected: 09/06/2024 (Approximate), Expires: 12/06/2024 [facility] Comment on above: Expected: 09/06/2024 (Approximate), Expires: 12/06/2024 Start: 05-05-2024 End: 05-05-2024 Patient encounter procedure 05/05/2024 3:20 PM EDT Immunization [facility] [place] [address] [place], [place] [id number] [place], Immunization Clinic Nurse [address] [place] [address] Flu vaccine (regular dose) Family [facility] Comment on above: Flu vaccine (regular dose) Start: 03-19-2024 Covid-19 Vaccine (2022-) Covid-19 Vaccine (2022- season) [facility] Comment on above: Postponed from 03/07 (Declined at this time) Start: 03-19-2024 Covid-19 Vaccine (6 - Moderna series) Covid-19 Vaccine (6 - Moderna series) [facility] Comment on above: Postponed from 08/26 (Declined at this time) Start: 03-19-2024 Shingrix Vaccine (2 of 3) Núñez grix Vaccine (2 of 3) [facility] Comment on above: Postponed from 06/13 (Declined at this time) Start: 03-19-2024 Urine microalbumin profile DTa P,Tdap,Td Vaccine (1 - Tdap) [facility] Comment on above: Postponed from 04/09 (Declined at this time) Start: 03-18-2024 End: 06-17-2024 Basic metabolic 2000 panel - Serum or Plasma [facility] Comment on above: Expected: 03/18/2024 , Expires: 06/17/2024 Start: 03-18-2024 End: 06-17-2024 Thyrotropin [Units/volume] in Serum or Plasma [facility] Work Phone: Comment on above: Expected: 03/18/2024 , Expires: 06/17/2024 Start: 03-18-2024 End: 06-17-2024 Thyroxine (T4) free [Mass/volume] in Serum or Plasma [facility] Comment on above: Expected: 03/18/2024 , Expires: 06/17/2024 Start: 03-18-2024 End: 06-17-2024 Triiodothyronine (T3) Free [Mass/volume] in Serum or Plasma [facility] Comment on above: Expected: 03/18/2024 , Expires: 06/17/2024 Start: 03-18-2024 End: 03-18-2024 Patient encounter procedure 03/18/2024 8:00 AM EDT Office Visit [facility] [place] [address] [place], [place] [id number] Martha Funk APRN.COLD WORK OPERATOR [address] [place] [address] 6 month follow up [facility] [place] Comment on above: 6 month follow up Start: 03-07-2024 Influenza vaccination Influenza Vacc ine (#1) [facility] Start: 03-05-2024 End: 06-04-2024 Herpes simplex virus+Varicella zoster virus DNA [Presence] in Unspecified specimen by PRABHJOT with probe detection HSV1,2/VZV NAAT LESION Lab Routine Oral lesion Expected: 03/05/2024, Expires: 06/04/2024 [facility] Work Phone: Comment on above: Expected: 03/05/2024 , Expires: 06/04/2024 Start: 10-18-2023 End: 01-17-2024 Thyrotropin [Units/volume] in Serum or Plasma TSH BLD Lab Routine Hypothyroidism, unspecified type Medication management Expected: 10/18/2023 (Approximate), Expires: 01/17/2024 [facility] Work Phone: Comment on above: Expected: 10/18/2023 (Approximate), Expires: 01/17/2024 Start: 10-18-2023 End: 01-17-2024 Thyroxine (T4) free [Mass/volume] in Serum or Plasma T4 FREE/FREE THYROX Lab Routine Hypothyroidism, unspecified type Medication management Expected: 10/18/2023 (Approximate), Expires: 01/17/2024 [facility] Work Phone: Comment on above: Expected: 10/18/2023 (Approximate), Expires: 01/17/2024 Start: 09-09-2023 End: 11-09-2023 CBC panel - Blood by Automated count CBC Lab Routine Annual physical exam Essential hypertension, benign Expected: 09/09/2023 (Approximate), Expires: 11/09/2023 [facility] Work Phone: Comment on above: Expected: 09/09/2023 (Approximate), Expires: 11/09/2023 Start: 09-09-2023 End: 11-09-2023 Comprehensive metabolic 2000 panel - Serum or Plasma COMP METABOLIC PANEL Lab Routine Annual physical exam Essential hypertension, benign Mixed hyperlipidemia Expected: 09/09/2023 (Approximate), Expires: 11/09/2023 [facility] Work Phone: Comment on above: Expected: 09/09/2023 (Approximate), Expires: 11/09/2023 Start: 09-09-2023 End: 11-09-2023 Lipid 1996 panel - Serum or Plasma LIPID PANEL BASIC Lab Routine Annual physical exam Mixed hyperlipidemia Expected: 09/09/2023 (Approximate), Expires: 11/09/2023 [facility] Work Phone: Comment on above: Expected: 09/09/2023 (Approximate), Expires: 11/09/2023 Start: 09-09-2023 End: 11-09-2023 Thyrotropin [Units/volume] in Serum or Plasma TSH BLD Lab Routine Annual physical exam Hypothyroidism, unspecified type Expected: 09/09/2023 (Approximate), Expires: 11/09/2023 [facility] Work Phone: Comment on above: Expected: 09/09/2023 (Approximate), Expires: 11/09/2023 Start: 03-07-2023 Influenza vaccination INFLUENZA (#1) [facility] Start: 09-16-2022 End: 11-16-2022 Cobalamin (Vitamin B12) [Mass/volume] in Serum or Plasma VITAMIN B12 BLOOD Lab Routine Elevated MCV Expected: 09/16/2022, Expires: 11/16/2022 [facility] Work Phone: Comment on above: Expected: 09/16/2022 , Expires: 11/16/2022 Start: 09-16-2022 End: 11-16-2022 Thyrotropin [Units/volume] in Serum or Plasma TSH BLD Lab Routine Hypothyroidism, unspecified type Expected: 09/16/2022, Expires: 11/16/2022 [facility] Work Phone: Comment on above: Expected: 09/16/2022 , Expires: 11/16/2022 Start: 09-15-2022 End: 11-15-2022 CBC W Auto Differential panel - Blood CBC + DIFF Lab Routine Essential hypertension, benign Expected: 09/15/2022, Expires: 11/15/2022 [facility] Work Phone: Comment on above: Expected: 09/15/2022 , Expires: 11/15/2022 Start: 09-15-2022 End: 11-15-2022 Comprehensive metabolic 2000 panel - Serum or Plasma COMP METABOLIC PANEL Lab Routine Essential hypertension, benign Expected: 09/15/2022, Expires: 11/15/2022 [facility] Work Phone: Comment on above: Expected: 09/15/2022 , Expires: 11/15/2022 Start: 09-15-2022 End: 11-15-2022 Lipid 1996 panel - Serum or Plasma LIPID PANEL BASIC Lab Routine Essential hypertension, benign Expected: 09/15/2022, Expires: 11/15/2022 [facility] Work Phone: Comment on above: Expected: 09/15/2022 , Expires: 11/15/2022 Start: 08-26-2022 COVID-19 VACCINE (6 - Moderna series) COVID-19 VACCINE (6 - Moderna series) [facility] Start: 03-07-2022 Influenza vaccination INFLUENZA (#1) [facility] Start: 03-05-2022 End: 05-05-2022 SCHEDULE LAB TESTING SCHEDULE LAB TESTING Lab Routine Expected: 03/05/2022, Expires: 05/05/2022 [facility] Work Phone: Comment on above: Expected: 03/05/2022 , Expires: 05/05/2022 Start: 03-05-2022 End: 05-05-2022 Thyrotropin [Units/volume] in Serum or Plasma TSH BLD Lab Routine Hypothyroidism Expected: 03/05/2022, Expires: 05/05/2022 [facility] Work Phone: Comment on above: Expected: 03/05/2022 , Expires: 05/05/2022 Start: 09-03-2021 COVID-19 VACCINE (4 - Booster for Moderna series) COVID-19 VACCINE (4 - Booster for Moderna series) [facility] Start: 2013 RSV Vaccine (1 - 1-d ose 75+ series) RSV Vaccine (1 - 1-dose 75+ series) [facility] Start: 06-13-2011 SHINGRIX VACCINE (2 of 3) NÚÑEZ GRIX VACCINE (2 of 3) [facility] Start: 04-09-2006 Urine microalbumin profile [facility] Start: 1998 RSV Vaccine (1 - 1-d ose 60+ series) RSV Vaccine (1 - 1-dose 60+ series) [facility] Start: 1956 Anxiety Screening Anxiety Screening [facility] Iiv3 vaccine split v irus 0.5 ml dosage im use INFLUENZA VACCINE, AGE 6MO-64YR, TRIVALENT (AFLURIA, FLULAVAL, FLUVIRIN, FLUZONE) Immunization/Injection Routine Need for influenza vaccination Ordered: 04/28/2024 [facility] Work Phone: Comment on above: Ordered: 04/28/2024 [facility] Immunizations Immunization Date Immunization Notes Care Provider Grady hathaway 05-05-2024 influenza, seasonal, injectable Immunization Corey Work Phone: [facility] 03-19-2023 influenza, injectabl e, quadrivalent, contains preservative Martha Funk SENIOR IOS DEVELOPERADOLFO Work Phone: [facility] 03-19-2023 influenza virus vaccine, unspecified formulation Manasa Menchaca APRN.CNP Work Phone: [facility] 03-18-2022 influenza, injectabl e, quadrivalent, contains preservative Russ Barone MD Work Phone: [facility] Work Phone: 03-29-2021 influenza, high dose seasonal, preservative-free Cedric Stout SENIOR IOS DEVELOPER.COLD WORK OPERATOR Work Phone: [facility] 08-24-2020 COVID-19 vaccine, fu ll dose (MODERNA) Cedric Stout SENIOR IOS DEVELOPER.COLD WORK OPERATOR Work Phone: [facility] 07-27-2020 COVID-19 vaccine, fu ll dose (MODERNA) Cedric Stout SENIOR IOS DEVELOPER.COLD WORK OPERATOR Work Phone: [facility] 03-14-2020 influenza, high dose seasonal, preservative-free Cedric Stout SENIOR IOS DEVELOPER.COLD WORK OPERATOR Work Phone: [facility] Work Phone: 04-11-2018 influenza, injectabl e, quadrivalent, contains preservative Cedric Stout APRN.COLD WORK OPERATOR Work Phone: [facility] 03-24-2017 influenza, high dose seasonal, preservative-free Cedric Stout SENIOR IOS DEVELOPER.COLD WORK OPERATOR Work Phone: [facility] 05-06-2016 pneumococcal conjuga te vaccine, 13 valent Cedric Stout SENIOR IOS DEVELOPER.COLD WORK OPERATOR Work Phone: [facility] Work Phone: 03-22-2016 influenza, high dose seasonal, preservative-free Cedric Stout SENIOR IOS DEVELOPER.COLD WORK OPERATOR Work Phone: [facility] 05-09-2015 influenza, high dose seasonal, preservative-free Cedric Stout SENIOR IOS DEVELOPER.COLD WORK OPERATOR Work Phone: [facility] Work Phone: 05-16-2012 influenza virus vaccine, unspecified formulation Cedric Stout SENIOR IOS DEVELOPER.COLD WORK OPERATOR Work Phone: [facility] Work Phone: 04-18-2011 zoster vaccine, live Cedric rojo SENIOR IOS DEVELOPER.COLD WORK OPERATOR Work Phone: [facility] 05-05-2007 influenza virus vaccine, unspecified formulation Cedric Stout APRN.[facility] Work Phone: [facility] Work Phone: 04-08-2006 tetanus and diphther ia toxoids, adsorbed, preservative free, for adult use (2 Lf of tetanus toxoid and 2 Lf of diphtheria toxoid) Cedric Stout APRN.[facility] Work Phone: [facility] Work Phone: 05-16-2005 influenza virus vaccine, unspecified formulation Cedric Stout APRN.[facility] Work Phone: [facility] Work Phone: 11-13-2003 pneumococcal polysaccharide vaccine, 23 valent Cedric Stout APRN.[facility] Work Phone: [facility] Work Phone: 04-03-1998 pneumococcal polysaccharide vaccine, 23 valent Cedric Stout APRN.[facility] Work Phone: [facility] Work Phone: 10-19-1996 tetanus and diphther ia toxoids, adsorbed, preservative free, for adult use (2 Lf of tetanus toxoid and 2 Lf of diphtheria toxoid) Cedric Stout APRN.[facility] Work Phone: [facility] Work Phone: 09-15-1972 tetanus and diphther ia toxoids, adsorbed, preservative free, for adult use (2 Lf of tetanus toxoid and 2 Lf of diphtheria toxoid) Cedric Stout APRN.[facility] Work Phone: [facility] Work Phone: Payers Date Payer Category Payer Medicare (Managed Care) PRIMETIM E [id number] 2014 Unknown PRIMETIME PRIMET TYRONE O POS [id number] 2014-Present [phone] [place] [id number] O [id number] 2014 Unknown PRIMETIME PRIMET TYRONE O POS [id number] 2014-Present [phone] [address] [place] [id number] O [id number] 2014 Unknown [id number] Social History Date Type Detail Facility Start: 04-18-2011 Tobacco smoking stat [facility] Never smoked tobacco [facility] Start: 09-12-2021 End: 03-05-2024 Alcohol intake Current non-drinker of alcohol (finding) [facility] Start: 09-05-2021 End: 09-09-2022 History SDOH Alcohol Frequency 1 [facility] Start: 09-05-2021 End: 09-09-2022 History SDOH Alcohol Std Drinks 98 [facility] Start: 09-05-2021 End: 09-09-2022 History SDOH Social Connections Phone 4 [facility] Start: 09-05-2021 End: 09-09-2022 History SDOH Social Connections Membership 2 [facility] Start: 09-05-2021 End: 09-09-2022 History SDOH Social Connections Living 5 [facility] Start: 09-05-2021 End: 09-09-2022 History SDOH Physical Activity MPS 3 [facility] Start: 11-25-2019 Education 12 [facility] Start: 1940 Sex Assigned At Female C [facility] Start: 08-13-2021 End: 03-18-2022 Exposure to SARS-CoV-2 (event) Not sure [facility] Start: 04-18-2011 Tobacco use and exposure Smoke less tobacco non-user [facility] Start: 09-09-2022 History SDOH Alcohol Std Drinks 0 [facility] Start: 09-09-2022 End: 09-10-2023 History of Social function [facility] Start: 09-09-2022 End: 09-10-2023 Social connection and isolation panel [facility] How often do you att end confucianist or yarsani services? Patient refused [facility] Do you belong to any clubs or organizations such as confucianist groups, unions, [employer] or athletic groups, or school groups? Yes [facility] Are you now , , , , never or living with a partner? [facility] How often to you hav e a drink containing alcohol? Never [facility] Do you feel stress - tense, restless, nervous, or anxious, or unable to sleep at night because your mind is troubled all the time - these days [OSQ] Not at all [facility] (I/We) worried whesanket er (my/our) food would run out before (I/we) got money to buy more. Never true [facility] In the past 12 month s, was there a time when you were not able to pay the mortgage or rent on time? No [facility] Start: 03-02-2020 Gender identity Identifies as female gender (finding) [facility] Start: 03-02-2020 Sexual orientation Heterosexual (fanny hernandez) [facility] Functional Status Date Assessment Result Facility 11-01-2014 Are you deaf, or do you have serious difficulty hearing No 11/01/2014 3:20 PM Alaina Adkins LPN No [facility] 11-01-2014 Are you blind, or do you have serious difficulty seeing, even when wearing glasses No 11/01/2014 3:20 PM Alaina Adkins LPN No [facility] 11-01-2014 Do you have serious difficulty walking or climbing stairs Yes 11/01/2014 3:20 PM Alaina Adkins LPN Yes [facility] 11-01-2014 Do you have difficul ty dressing or bathing No 11/01/2014 3:20 PM Alaina Adkins LPN No [facility] 11-01-2014 Because of a physica l, mental, or emotional condition, do you have difficulty doing errands alone such as visiting a physician's office or shopping No 11/01/2014 3:20 PM EDT Alaina Whaley LPN No [facility] Mental Status Date Assessment Result Facility 11-01-2014 Because of a physica l, mental, or emotional condition, do you have serious difficulty concentrating, remembering, or making decisions No 11/01/2014 3:20 PM EDT Alaina Whaley LPN No [facility] Clinical Notes 10-04-2021 to 12-08-2024 Telephone Encounter - Manisha Appiah LPN - 12/08/2024 9:55 AM EDTTelephone Encounter - Manisah Appiah LPN - 12/08/2024 9:55 AM EDTGRuss brantley MD - 09/14/2024 8:18 AM EDT Note Date & Type Note Facility 12-08-2024 Telephone encounter Note Patient has been identified by name and date of : Yes Patient phones for refill(s): Requested Prescriptions Pending Prescriptions Disp Refills meloxicam (MOBIC) 15 mg tablet 30 tablet 2 Sig: Take 1 tablet by mouth once daily. for pain. Take with food. Date of last office visit in primary care: 09/14/2024 Date of next office visit in primary care: 03/21/2025 Please advise. Thank you. Manisha Appiah LPN. [facility] 12-08-2024 Miscellaneous Notes Patient has been identified by name and date of : Yes Patient phones for refill(s): Requested Prescriptions Pending Prescriptions Disp Refills meloxicam (MOBIC) 15 mg tablet 30 tablet 2 Sig: Take 1 tablet by mouth once daily. for pain. Take with food. Date of last office visit in primary care: 09/14/2024 Date of next office visit in primary care: 03/21/2025 Please advise. Thank you. Manisha Appiah LPN. documented in this encounter [facility] 10-18-2024 Telephone encounter Note Patient has been identified by name and date of : Yes Patient phones for refill(s): Requested Prescriptions Pending Prescriptions Disp Refills levothyroxine (LEVOXYL) 100 mcg tablet 90 tablet 3 Sig: Take 1 tablet by mouth once daily. Date of last office visit in primary care: 09/14/2024 Date of next office visit in primary care: 03/21/2025 Please advise. Thank you. Manisha Appiah LPN. [facility] 10-18-2024 Miscellaneous Notes Patient has been identified by name and date of : Yes Patient phones for refill(s): Requested Prescriptions Pending Prescriptions Disp Refills levothyroxine (LEVOXYL) 100 mcg tablet 90 tablet 3 Sig: Take 1 tablet by mouth once daily. Date of last office visit in primary care: 09/14/2024 Date of next office visit in primary care: 03/21/2025 Please advise. Thank you. Manisha Appiah LPN. documented in this encounter [facility] 09-24-2024 Telephone encounter Note Prescription Refill Information The patient has been identified by name and date of : Yes Caregiver verified no other encounters exist for this prescription request: Yes Caregiver confirmed with patient/requestor that no other refills are due, in the near future, with this provider at this time: Yes The last office visit in the department: 09/14/24 Does the patient have a future office visit with this provider/department: Yes 03/21/25 Requested Prescriptions Pending Prescriptions Disp Refills atenolol (TENORMIN) 50 mg tablet 90 tablet 3 Sig: Take 1 tablet by mouth once daily. Naida Castanon LPN September 24, 2024 9:33 AM [facility] 09-24-2024 Miscellaneous Notes Prescription Refill Information The patient has been identified by name and date of : Yes Caregiver verified no other encounters exist for this prescription request: Yes Caregiver confirmed with patient/requestor that no other refills are due, in the near future, with this provider at this time: Yes The last office visit in the department: 09/14/24 Does the patient have a future office visit with this provider/department: Yes 03/21/25 Requested Prescriptions Pending Prescriptions Disp Refills atenolol (TENORMIN) 50 mg tablet 90 tablet 3 Sig: Take 1 tablet by mouth once daily. Naida Castanon LPN September 24, 2024 9:33 AM documented in this encounter [facility] 09-23-2024 Telephone encounter Note Prescription Refill Information The patient has been identified by name and date of : Yes Caregiver verified no other encounters exist for this prescription request: Yes Caregiver confirmed with patient/requestor that no other refills are due, in the near future, with this provider at this time: Yes The last office visit in the department: 09/14/2024 Does the patient have a future office visit with this provider/department: Yes, 03/21/2025 Requested Prescriptions Pending Prescriptions Disp Refills hydroCHLOROthiazide 12.5 mg capsule 90 capsule 3 Sig: Take 1 capsule by mouth once daily. OSWALDO Call September 23, 2024 9:08 AM [facility] 09-23-2024 Miscellaneous Notes Prescription Refill Information The patient has been identified by name and date of : Yes Caregiver verified no other encounters exist for this prescription request: Yes Caregiver confirmed with patient/requestor that no other refills are due, in the near future, with this provider at this time: Yes The last office visit in the department: 09/14/2024 Does the patient have a future office visit with this provider/department: Yes, 03/21/2025 Requested Prescriptions Pending Prescriptions Disp Refills hydroCHLOROthiazide 12.5 mg capsule 90 capsule 3 Sig: Take 1 capsule by mouth once daily. OSWALDO Call September 23, 2024 9:08 AM documented in this encounter [facility] 09-14-2024 Note HNO ID: [id number] Author: RUSS BARONE MD Service: ? Author Type: Physician Type: Progress Notes Filed: 09/14/2024 08:47 Note Text: Paty Rios is a 84 year old female here for a Medicare wellness visit. Medicare Health Risk Assessment General Health Excellent Exercise: Minutes/Day 30 min Exercise: Days/Week 3 days she walks [place]. Alcohol: Daily Use Never Alcohol: Drinks/Day Patient does not drink Alcohol: 6 or more drinks Never Feel off balance No Concerns: Teeth/Dentures No Concerns: Sexual function No Troubled by feelings None of the above Frequency: Eating healthy diet Several days ADLs requiring help None of the above Safety precautions in home/vehicle Yes Smoke, vape, chews tobacco No Difficulty hearing No Difficulty seeing No Current Providers Specialists: I have reviewed specialist-related care of the patient in the medical record. Medical/Family history review Reviewed and updated problem list, medical/surgical/family/social history, medications, and allergies. Opioid use review Opioid Medications (last 90 days) No data to display Anxiety/Depression screening RAJESH-7 Score: 2 (Minimal Anxiety) Recommendation: no further intervention at this time Cognitive screening Mini Cog Score: 5 Cognitive screening reviewed and No further action needed (score 3-5). Functional Observation Was the patient's Timed Up AND Go test unsteady or >= 12 seconds? No Advance Care Planning Surrogate decision maker and/or advance care plan documented Measurements BP 118/68 Pulse 73 Ht 150 cm (4' 11.06) Wt 48.5 kg (107 lb) SpO2 97% BMI 21.57 kg/m? Vision Screening: Follows with optometry/ophthalmology Assessment/Plan Medicare annual wellness visit, subsequent (Z00.00) - Counseled on healthy diet and regular exercise - Fall avoidance information provided - Personalized prevention plan provided Reason for Visit Paty Rios is a 84 year oldfemale who presents here Patient presents with: Medicare Wellness Exam Health Maintenance Anxiety Screening DTaP,Tdap,Td Vaccine(1 - Tdap) Shingrix Vaccine(2 of 3) HPI This is a 84-year-old woman with a past medical history of hypertension, hyperlipidemia, hypothyroidism. She is here for Medicare wellness and the only concern she has today is arthritis in her right She has arthritis in the right thumb which makes it difficult for her to use it sometimes, she is aware of the pain all the time. She can hardly do her hair curler. Holding her tooth brush is a concern. Pain is 5/10. She takes tylenol which helps her HTN: BP controlled today. Log of bp is very good Checks BP at home. Compliant with medications. Denies any chest pain, palpitations, SOB, swelling in the feet. Careful with diet to avoid salt, trying to eat more fruits and vegetables, exercises regularly HPL: Reviewed test results with patient , takes medications regularly , does not report side effects. Conscious to avoid red meats, full fat dairy and its by products. Exercising 3 to 5 times a week. Hypothyroidism. She is doing well on her current dose of Synthroid. Denies fatigue, cold intolerance and swelling in feet. TSH recently checked and normal. No problem-specific Assessment AND Plan notes found for this encounter. 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, unspecified Diverticulosis of colon (without mention of hemorrhage) Essential hypertension, benign Unspecified hypothyroidism PAST SURGICAL HISTORY Procedure Laterality Date BIOPSY BREAST OPEN INCISIONAL Bx of breast, incisional COLONOSCOPY FLX DX W/COLLJ SPEC WHEN PFRMD 03/15/2011 Colonoscopy DILATION AND CURETTAGE DXAND/THER NONOBSTETRIC Dilation AND curettage LAPS ABD PRTMANDOMENTUM DX W/WO SPEC BR/WA SPX Laparoscopy STEREO LOC FOR CORE BRST BX RT 08-05-11 TONSILLECTOMY AND ADENOIDECTOMY T/A (under age 12 years) XCAPSL CTRC RMVL INSJ IO LENS PROSTH W/O ECP 2010 Phacoemulsification/Intraocular Lens Insertion XCAPSL CTRC RMVL INSJ IO LENS PROSTH W/O ECP 2010 Phacoemulsification/Intraocular Lens Insertion FAMILY HISTORY Problem Relation Age of Onset Stroke Mother other (chf) Mother other (circulatory problems) Father Arthritis Brother Heart Maternal Grandmother Hypertension Daughter Thyroid Daughter Hypertension Son Hypertension Son Social History Tobacco Use Smoking status: Never Smokeless tobacco: Never Vaping Use Vaping status: Never Used Substance Use Topics Alcohol use: No Drug use: No Past medical history, appointments, medications, allergies reviewed. Pertinent Lab/Diagnostic Studies are reviewed and discussed today Current Outpatient Medications: losartan (COZAAR) 25 mg tablet levothyroxine (LEVOXYL) 100 mcg tablet atenolol (TENORMIN) 50 mg tablet hydroCHLOROthiazide 12.5 mg capsule simvastatin (ZOCOR) 10 mg tablet Cet (more content not included)... [facility] 09-14-2024 History of Present illness Narrative Images from the original note were not included. Paty Rios is a 84 year old female here for a Medicare wellness visit. Medicare Health Risk Assessment General Health Excellent Exercise: Minutes/Day 30 min Exercise: Days/Week 3 days she walks [place]. Alcohol: Daily Use Never Alcohol: Drinks/Day Patient does not drink Alcohol: 6 or more drinks Never Feel off balance No Concerns: Teeth/Dentures No Concerns: Sexual function No Troubled by feelings None of the above Frequency: Eating healthy diet Several days ADLs requiring help None of the above Safety precautions in home/vehicle Yes Smoke, vape, chews tobacco No Difficulty hearing No Difficulty seeing No Current Providers Specialists: I have reviewed specialist-related care of the patient in the medical record. Medical/Family history review Reviewed and updated problem list, medical/surgical/family/social history, medications, and allergies. Opioid use review Opioid Medications (last 90 days) No data to display Anxiety/Depression screening RAJESH-7 Score: 2 (Minimal Anxiety) Recommendation: no further intervention at this time Cognitive screening Mini Cog Score: 5 Cognitive screening reviewed and No further action needed (score 3-5). Functional Observation Was the patient's Timed Up & Go test unsteady or >= 12 seconds? No Advance Care Planning Surrogate decision maker and/or advance care plan documented Measurements BP 118/68 Pulse 73 Ht 150 cm (4' 11.06) Wt 48.5 kg (107 lb) SpO2 97% BMI 21.57 kg/m Vision Screening: Follows with optometry/ophthalmology Assessment/Plan Medicare annual wellness visit, subsequent (Z00.00) - Counseled on healthy diet and regular exercise - Fall avoidance information provided - Personalized prevention plan provided Reason for Visit Paty Rios is a 84 year oldfemale who presents here Patient presents with: Medicare Wellness Exam Health Maintenance Anxiety Screening DTaP,Tdap,Td Vaccine(1 - Tdap) Shingrix Vaccine(2 of 3) HPI This is a 84-year-old woman with a past medical history of hypertension, hyperlipidemia, hypothyroidism. She is here for Medicare wellness and the only concern she has today is arthritis in her right She has arthritis in the right thumb which makes it difficult for her to use it sometimes, she is aware of the pain all the time. She can hardly do her hair curler. Holding her tooth brush is a concern. Pain is 5/10. She takes tylenol which helps her HTN: BP controlled today. Log of bp is very good Checks BP at home. Compliant with medications. Denies any chest pain, palpitations, SOB, swelling in the feet. Careful with diet to avoid salt, trying to eat more fruits and vegetables, exercises regularly HPL: Reviewed test results with patient , takes medications regularly , does not report side effects. Conscious to avoid red meats, full fat dairy and its by products. Exercising 3 to 5 times a week. Hypothyroidism. She is doing well on her current dose of Synthroid. Denies fatigue, cold intolerance and swelling in feet. TSH recently checked and normal. No problem-specific Assessment & Plan notes found for this encounter. 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, unspecified Diverticulosis of colon (without mention of hemorrhage) Essential hypertension, benign Unspecified hypothyroidism PAST SURGICAL HISTORY Procedure Laterality Date BIOPSY BREAST OPEN INCISIONAL Bx of breast, incisional COLONOSCOPY FLX DX W/COLLJ SPEC WHEN PFRMD 03/15/2011 Colonoscopy DILATION & CURETTAGE DX&/THER NONOBSTETRIC Dilation & curettage LAPS ABD PRTM&OMENTUM DX W/WO SPEC BR/WA SPX Laparoscopy STEREO LOC FOR CORE BRST BX RT 08-05-11 TONSILLECTOMY & ADENOIDECTOMY <AGE 10 T/A (under age 10 years) XCAPSL CTRC RMVL INSJ IO LENS PROSTH W/O ECP 2010 Phacoemulsification/Intraocular Lens Insertion XCAPSL CTRC RMVL INSJ IO LENS PROSTH W/O ECP 2010 Phacoemulsification/Intraocular Lens Insertion FAMILY HISTORY Problem Relation Age of Onset Stroke Mother other (chf) Mother other (circulatory problems) Father Arthritis Brother Heart Maternal Grandmother Hypertension Daughter Thyroid Daughter Hypertension Son Hypertension Son Social History Tobacco Use Smoking status: Never Smokeless tobacco: Never Vaping Use Vaping status: Never Used Substance Use Topics Alcohol use: No Drug use: No Past medical history, appointments, medications, allergies reviewed. Pertinent Lab/Diagnostic Studies are reviewed and discussed today Current Outpatient Medications: losartan (COZAAR) 25 mg tablet levothyroxine (LEVOXYL) 100 mcg tablet atenolol (TENORMIN) 50 mg tablet hydroCHLOROthiazide 12.5 mg capsule simvastatin (ZOCOR) 10 mg tablet Cetirizine (ZYRTEC) 10 mg ORAL Cap THERAPEUTIC MULTIVITAMIN ORAL TAB ASPIRIN 81 MG ORAL TAB meloxicam (MOBIC) 15 mg tablet Review of Systems CONSTITUTIONAL: No fevers, chills night sweats, unintended weight loss CARDIOVASCULAR: No chest pain, dyspnea, palpitations, orthopnea, PND, ankle edema. PULM: No dyspnea, unexplained cough. GI: No dysphagia/odynophagia, problematic reflux, constipation, diarrhea, changes in stool habits, hematochezia, melena. : No new urinary complaints, including dysuria, gross hematuria or pyuria. NEURO: No new balance problems, peripheral weakness/paresthesias or numbness of concern. Physical Exam BP 118/68 Pulse 73 Ht 150 cm (4' 11.06) Wt 48.5 kg (107 lb) SpO2 97% BMI 21.57 kg/m General appearance: Well appearing, alert, in no acute distress, well nourished. Skin: Skin color, texture, turgor normal, no suspicious rashes or lesions Head: Normocephalic, no masses, lesions, tenderness or abnormalities Eyes: Anicteric sclera. Pupils are equally round and reactive to light. Extraocular movements are intact. Lungs:Normal breathing efforts, Lungs clear to auscultation. No wheezing, rhonchi, rales Heart: RRR without murmur, gallop, or rubs. Extremities: No deformities, edema, skin discoloration, clubbing or cyanosis. Good capillary refill. ASSESSMENT/PLAN: 1. Medicare annual wellness visit, subsequent - ICD9: V70.0, ICD10: Z00.00 (primary diagnosis) - Counseled on healthy diet and regular exercise 2. Encounter for immunization - ICD9: V03.89, ICD10: Z23 - [employer] 3. Arthritis of carpometacarpal (CMC) joint of right thumb - ICD9: 716.94, ICD10: M18.11 - MELOXICAM 15 MG TABLET 4. Medication management - ICD9: V58.69, ICD10: Z79.899 5. Hypothyroidism, unspecified type - ICD9: 244.9, ICD10: E03.9 - Instructed patient on importance of taking on an empty stomach either first thing in the morning or at bedtime. 6. Essential hypertension, benign - ICD9: 401.1, ICD10: I10 - Controlled - Recommend home blood pressure monitoring, to bring results to next visit - Encouraged sodium restriction, DASH or Mediterranean diet - Recommend regular aerobic exercise Russ Barone MD Voice recognition software was used to compose this office note. Please excuse any unintended typographical errors. documented in this encounter [facility] 08-30-2024 Telephone encounter Note Patient has been identified by name and date of : Yes Patient phones for refill(s): Requested Prescriptions Pending Prescriptions Disp Refills losartan (COZAAR) 25 mg tablet 90 tablet 1 Sig: Take 1 tablet by mouth once daily. Date of last office visit in primary care: 03/05/2024 Date of next office visit in primary care: 09/14/2024 Please advise. Thank you. Manisha Appiah LPN. [facility] 08-30-2024 Miscellaneous Notes Patient has been identified by name and date of : Yes Patient phones for refill(s): Requested Prescriptions Pending Prescriptions Disp Refills losartan (COZAAR) 25 mg tablet 90 tablet 1 Sig: Take 1 tablet by mouth once daily. Date of last office visit in primary care: 03/05/2024 Date of next office visit in primary care: 09/14/2024 Please advise. Thank you. Manisha Appiah LPN. documented in this encounter [facility] 04-28-2024 Telephone encounter Note Patient requesting to have regular dose flu vaccine and not high dose. States that she broke out in hives and was severely nauseated the last time she received the high dose. Please review and advise. Karrie Russo LPN [facility] 04-28-2024 Miscellaneous Notes Patient requesting to have regular dose flu vaccine and not high dose. States that she broke out in hives and was severely nauseated the last time she received the high dose. Please review and advise. Karrie Russo LPN documented in this encounter [facility] 03-22-2024 Telephone encounter Note Then no concerns on blood work. Thank you Martha Funk APRN.COLD WORK OPERATOR [facility] 03-22-2024 Miscellaneous Notes Then no concerns on blood work. Thank you Martha Funk APRN.COLD WORK OPERATOR Patient returned call and went over results, notes from Martha Funk DANCE HALL HOST/HOSTESS with understanding. Patient said she was not fasting for the lab work. Called and left message for patient to call office back for results Lyndsay Dunn LPN March 19, 2024 10:12 AM Blood work all in acceptable ranges. Blood sugar slightly elevated but is normal if this was not a fasting sample. If it was a fasting sample, I recommend we do a HgbA1c to further evaluate this. Thank you Martha Funk APRN.COLD WORK OPERATOR documented in this encounter [facility] 03-19-2024 Telephone encounter Note Patient returned call and went over results, notes from Martha Funk DANCE HALL HOST/HOSTESS with understanding. Patient said she was not fasting for the lab work. [facility] 03-19-2024 Telephone encounter Note Called and left message for patient to call office back for results Lyndsay Dunn LPN March 19, 2024 10:12 AM [facility] 03-19-2024 Telephone encounter Note Blood work all in acceptable ranges. Blood sugar slightly elevated but is normal if this was not a fasting sample. If it was a fasting sample, I recommend we do a HgbA1c to further evaluate this. Thank you Martha Funk APRN.COLD WORK OPERATOR [facility] 03-18-2024 Instructions Martha Funk APRN.CNP - 03/18/2024 8:22 AM EDT Over the counter cream/gel with lidocaine and/or vit E gel. documented in this encounter [facility] 03-18-2024 Note HNO ID: [id number] Author: MARTHA FUNK APRN.CNP Service: ? Author Type: Nurse Practitioner Type: Progress Notes Filed: 03/18/2024 08:34 Note Text: CC: Patient presents with: Recheck: 6 month follow up HPI Paty Rios is a 83 year old female who presents today for routine follow up. Recent shingles episode. Rash to left side of face is healing, no new rashes, and pain improving. Still with some burning sharp pain. Denies fever chills drainage, redness, vision or hearing changes, or fatigue. HTN: Ms. Rios indicates that she is feeling well and denies any symptoms referable to elevated blood pressure. Specifically denies headache, chest pain, palpitations, dyspnea, and peripheral edema. Patient denies any side effects of her medication(s) and is compliant with their regimen. She does check BP's away from this office with average BP's in the 120s/70s range. Paty works out regularly 7 times per week with walking. She watches her diet for sodium, low fat and low cholesterol most of the time. Last 3 Encounter BP Readings: Date: BP: 03/18/2024 122/68 03/05/2024 170/74 03/03/2024 160/76 Hypothyroidism: Takes medication as ordered. Denies any abnormal change in energy or weight. REVIEW OF SYSTEMS See HPI PAST MEDICAL HISTORY No date: Benign neoplasm of colon No date: Disorder of bone and cartilage, unspecified No date: Diverticulosis of colon (without mention of hemorrhage) No date: Essential hypertension, benign No date: Unspecified hypothyroidism PAST SURGICAL HISTORY No date: BIOPSY BREAST OPEN INCISIONAL Comment: Bx of breast, incisional 03/15/2011: COLONOSCOPY FLX DX W/COLLJ SPEC WHEN PFRMD Comment: Colonoscopy No date: DILATION AND CURETTAGE DXAND/THER NONOBSTETRIC Comment: Dilation AND curettage No date: LAPS ABD PRTMANDOMENTUM DX W/WO SPEC BR/WA SPX Comment: Laparoscopy 08-05-11: STEREO LOC FOR CORE BRST BX RT No date: TONSILLECTOMY AND ADENOIDECTOMY Comment: T/A (under age 10 years) 2010: XCAPSL CTRC RMVL INSJ IO LENS PROSTH W/O ECP Comment: Phacoemulsification/Intraocular Lens Insertion 2011: XCAPSL CTRC RMVL INSJ IO LENS PROSTH W/O ECP Comment: Phacoemulsification/Intraocular Lens Insertion ALLERGIES Augmentin [Amoxicillin-Pot Clavulanate], Fosamax [Alendronate Sodium], Grass Pollen, and Valtrex [Valacyclovir] MEDICATIONS losartan (COZAAR) 25 mg tablet Take 1 tablet by mouth once daily. levothyroxine (LEVOXYL) 100 mcg tablet Take 1 tablet by mouth once daily. atenolol (TENORMIN) 50 mg tablet Take 1 tablet by mouth once daily. hydroCHLOROthiazide 12.5 mg capsule Take 1 capsule by mouth once daily. simvastatin (ZOCOR) 10 mg tablet Take 1 tablet by mouth daily at bedtime. Cetirizine (ZYRTEC) 10 mg ORAL Cap Take by mouth. Take by mouth THERAPEUTIC MULTIVITAMIN ORAL TAB Take one(1) tablet daily. ASPIRIN 81 MG ORAL TAB Take one(1) tablet daily. FAMILY HISTORY Problem Relation Age of Onset Stroke Mother other (chf) Mother other (circulatory problems) Father Arthritis Brother Heart Maternal Grandmother Hypertension Daughter Thyroid Daughter Hypertension Son Hypertension Son Social History Tobacco Use Smoking status: Never Smokeless tobacco: Never Vaping Use Vaping status: Never Used Substance Use Topics Alcohol use: No Drug use: No PHYSICAL EXAM BP 122/68 Pulse 76 Resp 16 Wt 48.4 kg (106 lb 11.2 oz) SpO2 94% BMI 20.84 kg/m? General Appearance: well appearing, in no acute distress, alert Skin: dried healing scabbed rash to left side of chin extending to left ear and one small dried scab 1 for corner of left eye Eyes: conjunctiva pink and moist, no icterus, sclera white, non-injected Neck: Thyroid normal size and symmetric without palpable nodules, Neck supple, No adenopathy Lymph nodes: No cervical lymphadenopathy and No supraclavicular lymphadenopathy Lungs: Lungs clear to auscultation. No wheezing, rhonchi, rales. Heart: RRR without murmur, gallop, or rubs. No ectopy Health maintenance reviewed with patient: Anxiety Screening Never done Covid-19 Vaccine( season) due on 03/07/2024 Influenza Vaccine(1) due on 03/07/2024 DTaP,Tdap,Td Vaccine(1 - Tdap) due on 03/19/2024 Shingrix Vaccine(2 of 3) due on 03/19/2024 RSV Vaccine(1 - 1-dose 60+ series) due on 09/16/2024 Diabetes Screening due on 09/09/2026 Bone Density Screening Completed Pneumococcal Vaccine: 65+ Completed Advance Directive Discussion Discontinued DATA REVIEWED: No new labs ASSESSMENT/PLAN: 1. Essential hypertension, benign - ICD9: 401.1, ICD10: I10 (primary diagnosis) - Controlled - Continue current medications - Recommend home blood pressure monitoring, to bring results to next visit - Encouraged sodium restriction, DASH or Mediterranean diet - Recommend regular aerobic exercise - BASIC METABOLIC PANEL 2. Hypothyroidism, unspecified type - ICD9: 244.9, ICD10: E03.9 - asymptomatic - Instructed patient (more content not included)... [facility] 03-18-2024 History of Present illness Narrative CC: Patient presents with: Recheck: 6 month follow up HPI Ptay Rios is a 83 year old female who presents today for routine follow up. Recent shingles episode. Rash to left side of face is healing, no new rashes, and pain improving. Still with some burning sharp pain. Denies fever chills drainage, redness, vision or hearing changes, or fatigue. HTN: Ms. Rios indicates that she is feeling well and denies any symptoms referable to elevated blood pressure. Specifically denies headache, chest pain, palpitations, dyspnea, and peripheral edema. Patient denies any side effects of her medication(s) and is compliant with their regimen. She does check BP's away from this office with average BP's in the 120s/70s range. Paty works out regularly 7 times per week with walking. She watches her diet for sodium, low fat and low cholesterol most of the time. Last 3 Encounter BP Readings: Date: BP: 03/18/2024 122/68 03/05/2024 170/74 03/03/2024 160/76 Hypothyroidism: Takes medication as ordered. Denies any abnormal change in energy or weight. REVIEW OF SYSTEMS See HPI PAST MEDICAL HISTORY No date: Benign neoplasm of colon No date: Disorder of bone and cartilage, unspecified No date: Diverticulosis of colon (without mention of hemorrhage) No date: Essential hypertension, benign No date: Unspecified hypothyroidism PAST SURGICAL HISTORY No date: BIOPSY BREAST OPEN INCISIONAL Comment: Bx of breast, incisional 03/15/2011: COLONOSCOPY FLX DX W/COLLJ SPEC WHEN PFRMD Comment: Colonoscopy No date: DILATION & CURETTAGE DX&/THER NONOBSTETRIC Comment: Dilation & curettage No date: LAPS ABD PRTM&OMENTUM DX W/WO SPEC BR/WA SPX Comment: Laparoscopy 08-05-11: STEREO LOC FOR CORE BRST BX RT No date: TONSILLECTOMY & ADENOIDECTOMY <AGE 10 Comment: T/A (under age 10 years) 2011: XCAPSL CTRC RMVL INSJ IO LENS PROSTH W/O ECP Comment: Phacoemulsification/Intraocular Lens Insertion 2011: XCAPSL CTRC RMVL INSJ IO LENS PROSTH W/O ECP Comment: Phacoemulsification/Intraocular Lens Insertion ALLERGIES Augmentin [Amoxicillin-Pot Clavulanate], Fosamax [Alendronate Sodium], Grass Pollen, and Valtrex [Valacyclovir] MEDICATIONS losartan (COZAAR) 25 mg tablet Take 1 tablet by mouth once daily. levothyroxine (LEVOXYL) 100 mcg tablet Take 1 tablet by mouth once daily. atenolol (TENORMIN) 50 mg tablet Take 1 tablet by mouth once daily. hydroCHLOROthiazide 12.5 mg capsule Take 1 capsule by mouth once daily. simvastatin (ZOCOR) 10 mg tablet Take 1 tablet by mouth daily at bedtime. Cetirizine (ZYRTEC) 10 mg ORAL Cap Take by mouth. Take by mouth THERAPEUTIC MULTIVITAMIN ORAL TAB Take one(1) tablet daily. ASPIRIN 81 MG ORAL TAB Take one(1) tablet daily. FAMILY HISTORY Problem Relation Age of Onset Stroke Mother other (chf) Mother other (circulatory problems) Father Arthritis Brother Heart Maternal Grandmother Hypertension Daughter Thyroid Daughter Hypertension Son Hypertension Son Social History Tobacco Use Smoking status: Never Smokeless tobacco: Never Vaping Use Vaping status: Never Used Substance Use Topics Alcohol use: No Drug use: No PHYSICAL EXAM BP 122/68 Pulse 76 Resp 16 Wt 48.4 kg (106 lb 11.2 oz) SpO2 94% BMI 20.84 kg/m General Appearance: well appearing, in no acute distress, alert Skin: dried healing scabbed rash to left side of chin extending to left ear and one small dried scab 1 for corner of left eye Eyes: conjunctiva pink and moist, no icterus, sclera white, non-injected Neck: Thyroid normal size and symmetric without palpable nodules, Neck supple, No adenopathy Lymph nodes: No cervical lymphadenopathy and No supraclavicular lymphadenopathy Lungs: Lungs clear to auscultation. No wheezing, rhonchi, rales. Heart: RRR without murmur, gallop, or rubs. No ectopy Health maintenance reviewed with patient: Anxiety Screening Never done Covid-19 Vaccine(6 - season) due on 03/07/2024 Influenza Vaccine(1) due on 03/07/2024 DTaP,Tdap,Td Vaccine(1 - Tdap) due on 03/19/2024 Shingrix Vaccine(2 of 3) due on 03/19/2024 RSV Vaccine(1 - 1-dose 60+ series) due on 09/16/2024 Diabetes Screening due on 09/09/2026 Bone Density Screening Completed Pneumococcal Vaccine: 65+ Completed Advance Directive Discussion Discontinued DATA REVIEWED: No new labs ASSESSMENT/PLAN: 1. Essential hypertension, benign - ICD9: 401.1, ICD10: I10 (primary diagnosis) - Controlled - Continue current medications - Recommend home blood pressure monitoring, to bring results to next visit - Encouraged sodium restriction, DASH or Mediterranean diet - Recommend regular aerobic exercise - BASIC METABOLIC PANEL 2. Hypothyroidism, unspecified type - ICD9: 244.9, ICD10: E03.9 - asymptomatic - Instructed patient on importance of taking on an empty stomach either first thing in the morning or at bedtime. - THYROID STIMULATING HORMONE - T3, FREE - T4 FREE/FREE THYROXINE - THYROID STIMULATING HORMONE 3. Herpes zoster without complication - ICD9: 053.9, ICD10: B02.9 Resolving well. Can use vit E to healing areas and for remaining pain can use lidocaine gel to areas as discussed except to area near eye 4. Annual physical exam - ICD9: V70.0, ICD10: Z00.00 Not discussed today, blood work ordered to review at upcoming appointment. - COMPREHENSIVE METABOLIC PANEL - LIPID PANEL BASIC - COMPLETE BLOOD COUNT Prescription instructions reviewed with patient as applicable. Potential red flag symptoms discussed with the patient. Reviewed appropriate action plan to take if red flag symptoms occur. Patient agreeable to treatment plan. Martha Funk APRN.CNP documented in this encounter [facility] 03-06-2024 Telephone encounter Note Called with patient informed that culture revealed shingles. GFR 72, started on Valtrex. Recommend to call ENT on Friday for evaluation. Tylenol/ibuprofen as needed for pain. Stephanie García APRN.SHANNON [facility] 03-06-2024 Miscellaneous Notes Called with patient informed that culture revealed shingles. GFR 72, started on Valtrex. Recommend to call ENT on Friday for evaluation. Tylenol/ibuprofen as needed for pain. Stephanie García APRN.CNP documented in this encounter [facility] 03-05-2024 Instructions Stephanie García APRN.CNP - 03/05/2024 8:07 AM EDT Will send culture for cold sore, and notify of results Ofloxacin drops to right ear Pepcid 20 mg twice a day for 10 days Zyrtec 10 mg By mouth daily at bedtime documented in this encounter [facility] 03-05-2024 Note HNO ID: [id number] Author: STEPHANIE GARCÍA APRN.CNP Service: ? Author Type: Nurse Practitioner Type: Progress Notes Filed: 03/05/2024 08:46 Note Text: Subjective The history is provided by the patient. No heavy equipment service manager was used. PAT Rios is a 83 year old female who presents today for CC of blistered lesions on mouth and left ear pain. On Friday she started with hives on face, she started a new generic medication and had a reaction, was given prednisone, which hives are better. However over the past 2 days developed blisters on lip, and left ear pain. She denies any new changes BP 170/74 Pulse 66 Temp 37.3 ?C (99.2 ?F) Resp 18 Wt 50.6 kg (111 lb 8.8 oz) SpO2 96% BMI 21.79 kg/m? Social History Tobacco Use Smoking status: Never Smokeless tobacco: Never Vaping Use Vaping status: Never Used Substance Use Topics Alcohol use: No Drug use: No PAST MEDICAL HISTORY No date: Benign neoplasm of colon No date: Disorder of bone and cartilage, unspecified No date: Diverticulosis of colon (without mention of hemorrhage) No date: Essential hypertension, benign No date: Unspecified hypothyroidism I have confirmed and edited as necessary, the [facility] Review of Systems Constitutional: Negative for chills and fever. HENT: Positive for ear pain (left). Blisters on bottom lip Musculoskeletal: Negative for joint pain and myalgias. Skin: Negative for itching and rash. All other systems reviewed and are negative. Objective Physical Exam Vitals and nursing note reviewed. HENT: Right Ear: Hearing, tympanic membrane, ear canal and external ear normal. Left Ear: Tenderness (erythematous canal) present. Ears: Comments: Appears to be blistered lesion on tm Pulmonary: Effort: Pulmonary effort is normal. Skin: General: Skin is warm and dry. Neurological: Mental Status: She is alert and oriented to person, place, and time. Psychiatric: Mood and Affect: Affect normal. ASSESSMENT/PLAN: 1. Oral lesion - ICD9: 528.9, ICD10: K13.70 (primary diagnosis) Appears to be possible hsv, shingles, allergic reaction Culture done, will call with results and treatment - HSV1,2/VZV NAAT LESION 2. Left ear pain - ICD9: 388.70, ICD10: H92.02 Canal erythematous, will place on ofloxacin for otitis externa If shingles or hsv will start valtrex Diagnosis and treatment plan were discussed and questions were answered to the patient's satisfaction. Pt acknowledged understanding of concepts and follow up plan. Specific signs and symptoms that would indicate the need for higher level of care were discussed in detail warranting prompt ER evaluation. Stephanie García APRN.[facility] 03-05-2024 History of Present illness Narrative Images from the original note were not included. Subjective The history is provided by the patient. No heavy equipment service manager was used. PAT Rios is a 83 year old female who presents today for CC of blistered lesions on mouth and left ear pain. On Friday she started with hives on face, she started a new generic medication and had a reaction, was given prednisone, which hives are better. However over the past 2 days developed blisters on lip, and left ear pain. She denies any new changes BP 170/74 Pulse 66 Temp 37.3 C (99.2 F) Resp 18 Wt 50.6 kg (111 lb 8.8 oz) SpO2 96% BMI 21.79 kg/m Social History Tobacco Use Smoking status: Never Smokeless tobacco: Never Vaping Use Vaping status: Never Used Substance Use Topics Alcohol use: No Drug use: No PAST MEDICAL HISTORY No date: Benign neoplasm of colon No date: Disorder of bone and cartilage, unspecified No date: Diverticulosis of colon (without mention of hemorrhage) No date: Essential hypertension, benign No date: Unspecified hypothyroidism I have confirmed and edited as necessary, the [facility] Review of Systems Constitutional: Negative for chills and fever. HENT: Positive for ear pain (left). Blisters on bottom lip Musculoskeletal: Negative for joint pain and myalgias. Skin: Negative for itching and rash. All other systems reviewed and are negative. Objective Physical Exam Vitals and nursing note reviewed. HENT: Right Ear: Hearing, tympanic membrane, ear canal and external ear normal. Left Ear: Tenderness (erythematous canal) present. Ears: Comments: Appears to be blistered lesion on tm Pulmonary: Effort: Pulmonary effort is normal. Skin: General: Skin is warm and dry. Neurological: Mental Status: She is alert and oriented to person, place, and time. Psychiatric: Mood and Affect: Affect normal. ASSESSMENT/PLAN: 1. Oral lesion - ICD9: 528.9, ICD10: K13.70 (primary diagnosis) Appears to be possible hsv, shingles, allergic reaction Culture done, will call with results and treatment - HSV1,2/VZV NAAT LESION 2. Left ear pain - ICD9: 388.70, ICD10: H92.02 Canal erythematous, will place on ofloxacin for otitis externa If shingles or hsv will start valtrex Diagnosis and treatment plan were discussed and questions were answered to the patient's satisfaction. Pt acknowledged understanding of concepts and follow up plan. Specific signs and symptoms that would indicate the need for higher level of care were discussed in detail warranting prompt ER evaluation. Stephanie García APRN.COLD WORK OPERATOR documented in this encounter [facility] 03-03-2024 Note HNO ID: [id number] Author: CLAUDIO CAVAZOS APRN.COLD WORK OPERATOR Service: ? Author Type: Nurse Practitioner Type: Progress Notes Filed: 03/03/2024 14:44 Note Text: Subjective Patient came in with complaints of hives on left side of her face and ear. Patient says the pharmacy changed the brand of her simvastatin. Patient says this happened last time they changed the brand she also got swelling and hives. Patient says she did have some steroids last time and that seemed to help. Patient is going to contact the primary care about medication and swelling. Patient has no swelling on lips or tongue. Patient has no difficulty breathing or swallowing. Patient says the hives do itch. Patient denies any other symptoms at this time. The history is provided by the patient. No heavy equipment service manager was used. Rash Review of Systems Constitutional: Negative. Skin: Positive for itching and rash. Objective Physical Exam Constitutional: Appearance: Normal appearance. HENT: Head: Comments: Patient does have blanchable hives in the area marked above. Pulmonary: Effort: Pulmonary effort is normal. Neurological: Mental Status: She is alert. PAST MEDICAL HISTORY No date: Benign neoplasm of colon No date: Disorder of bone and cartilage, unspecified No date: Diverticulosis of colon (without mention of hemorrhage) No date: Essential hypertension, benign No date: Unspecified hypothyroidism PAST SURGICAL HISTORY No date: BIOPSY BREAST OPEN INCISIONAL Comment: Bx of breast, incisional 03/15/2011: COLONOSCOPY FLX DX W/COLLJ SPEC WHEN PFRMD Comment: Colonoscopy No date: DILATION AND CURETTAGE DXAND/THER NONOBSTETRIC Comment: Dilation AND curettage No date: LAPS ABD PRTMANDOMENTUM DX W/WO SPEC BR/WA SPX Comment: Laparoscopy 08-05-11: STEREO LOC FOR CORE BRST BX RT No date: TONSILLECTOMY AND ADENOIDECTOMY Comment: T/A (under age 10 years) 2010: XCAPSL CTRC RMVL INSJ IO LENS PROSTH W/O ECP Comment: Phacoemulsification/Intraocular Lens Insertion 2011: XCAPSL CTRC RMVL INSJ IO LENS PROSTH W/O ECP Comment: Phacoemulsification/Intraocular Lens Insertion ALLERGIES Augmentin [Amoxicillin-Pot Clavulanate], Fosamax [Alendronate Sodium], and Grass Pollen MEDICATIONS losartan (COZAAR) 25 mg tablet Take 1 tablet by mouth once daily. levothyroxine (LEVOXYL) 100 mcg tablet Take 1 tablet by mouth once daily. atenolol (TENORMIN) 50 mg tablet Take 1 tablet by mouth once daily. hydroCHLOROthiazide 12.5 mg capsule Take 1 capsule by mouth once daily. simvastatin (ZOCOR) 10 mg tablet Take 1 tablet by mouth daily at bedtime. Cetirizine (ZYRTEC) 10 mg ORAL Cap Take by mouth. Take by mouth THERAPEUTIC MULTIVITAMIN ORAL TAB Take one(1) tablet daily. ASPIRIN 81 MG ORAL TAB Take one(1) tablet daily. predniSONE (DELTASONE) 20 mg tablet Take 2 tablets by mouth once daily for 5 days. FAMILY HISTORY Problem Relation Age of Onset Stroke Mother other (chf) Mother other (circulatory problems) Father Arthritis Brother Heart Maternal Grandmother Hypertension Daughter Thyroid Daughter Hypertension Son Hypertension Son Social History Tobacco Use Smoking status: Never Smokeless tobacco: Never Vaping Use Vaping status: Never Used Substance Use Topics Alcohol use: No Drug use: No ASSESSMENT/PLAN: 1. Hives - ICD9: 708.9, ICD10: L50.9 - PREDNISONE 20 MG TABLET Patient was educated about proper use of medication and supportive therapies. Patient will follow-up if signs and symptoms seem to be getting worse not better. Patient was okay with this care plan. Patient will follow-up with primary care about cholesterol medicine causing hives 2 different times when brands were switched. Claudio Cavazos APRN.[facility] 03-03-2024 History of Present illness Narrative Images from the original note were not included. Subjective Patient came in with complaints of hives on left side of her face and ear. Patient says the pharmacy changed the brand of her simvastatin. Patient says this happened last time they changed the brand she also got swelling and hives. Patient says she did have some steroids last time and that seemed to help. Patient is going to contact the primary care about medication and swelling. Patient has no swelling on lips or tongue. Patient has no difficulty breathing or swallowing. Patient says the hives do itch. Patient denies any other symptoms at this time. The history is provided by the patient. No heavy equipment service manager was used. Rash Review of Systems Constitutional: Negative. Skin: Positive for itching and rash. Objective Physical Exam Constitutional: Appearance: Normal appearance. HENT: Head: Comments: Patient does have blanchable hives in the area marked above. Pulmonary: Effort: Pulmonary effort is normal. Neurological: Mental Status: She is alert. PAST MEDICAL HISTORY No date: Benign neoplasm of colon No date: Disorder of bone and cartilage, unspecified No date: Diverticulosis of colon (without mention of hemorrhage) No date: Essential hypertension, benign No date: Unspecified hypothyroidism PAST SURGICAL HISTORY No date: BIOPSY BREAST OPEN INCISIONAL Comment: Bx of breast, incisional 03/15/2011: COLONOSCOPY FLX DX W/COLLJ SPEC WHEN PFRMD Comment: Colonoscopy No date: DILATION & CURETTAGE DX&/THER NONOBSTETRIC Comment: Dilation & curettage No date: LAPS ABD PRTM&OMENTUM DX W/WO SPEC BR/WA SPX Comment: Laparoscopy 08-05-11: STEREO LOC FOR CORE BRST BX RT No date: TONSILLECTOMY & ADENOIDECTOMY <AGE 12 Comment: T/A (under age 10 years) 2010: XCAPSL CTRC RMVL INSJ IO LENS PROSTH W/O ECP Comment: Phacoemulsification/Intraocular Lens Insertion 2011: XCAPSL CTRC RMVL INSJ IO LENS PROSTH W/O ECP Comment: Phacoemulsification/Intraocular Lens Insertion ALLERGIES Augmentin [Amoxicillin-Pot Clavulanate], Fosamax [Alendronate Sodium], and Grass Pollen MEDICATIONS losartan (COZAAR) 25 mg tablet Take 1 tablet by mouth once daily. levothyroxine (LEVOXYL) 100 mcg tablet Take 1 tablet by mouth once daily. atenolol (TENORMIN) 50 mg tablet Take 1 tablet by mouth once daily. hydroCHLOROthiazide 12.5 mg capsule Take 1 capsule by mouth once daily. simvastatin (ZOCOR) 10 mg tablet Take 1 tablet by mouth daily at bedtime. Cetirizine (ZYRTEC) 10 mg ORAL Cap Take by mouth. Take by mouth THERAPEUTIC MULTIVITAMIN ORAL TAB Take one(1) tablet daily. ASPIRIN 81 MG ORAL TAB Take one(1) tablet daily. predniSONE (DELTASONE) 20 mg tablet Take 2 tablets by mouth once daily for 5 days. FAMILY HISTORY Problem Relation Age of Onset Stroke Mother other (chf) Mother other (circulatory problems) Father Arthritis Brother Heart Maternal Grandmother Hypertension Daughter Thyroid Daughter Hypertension Son Hypertension Son Social History Tobacco Use Smoking status: Never Smokeless tobacco: Never Vaping Use Vaping status: Never Used Substance Use Topics Alcohol use: No Drug use: No ASSESSMENT/PLAN: 1. Hives - ICD9: 708.9, ICD10: L50.9 - PREDNISONE 20 MG TABLET Patient was educated about proper use of medication and supportive therapies. Patient will follow-up if signs and symptoms seem to be getting worse not better. Patient was okay with this care plan. Patient will follow-up with primary care about cholesterol medicine causing hives 2 different times when brands were switched. Claudio Cavazos APRN.COLD WORK OPERATOR documented in this encounter [facility] 03-03-2024 Telephone encounter Note Patient has been identified by name and date of : Yes Patient phones for refill(s): Requested Prescriptions Pending Prescriptions Disp Refills losartan (COZAAR) 25 mg tablet 90 tablet 1 Sig: Take 1 tablet by mouth once daily. Date of last office visit in primary care: 11/28/2022 Date of next office visit in primary care: 03/18/2024 Please advise. Thank you. Manisha Appiah LPN. [facility] 03-03-2024 Miscellaneous Notes Patient has been identified by name and date of : Yes Patient phones for refill(s): Requested Prescriptions Pending Prescriptions Disp Refills losartan (COZAAR) 25 mg tablet 90 tablet 1 Sig: Take 1 tablet by mouth once daily. Date of last office visit in primary care: 11/28/2022 Date of next office visit in primary care: 03/18/2024 Please advise. Thank you. Manisha Appiah LPN. documented in this encounter [facility] 09-17-2023 Note HNO ID: [id number] Author: MARTHA FUNK APRN.SHANNON Service: ? Author Type: Nurse Practitioner Type: Progress Notes Filed: 09/17/2023 08:41 Note Text: Paty Rios is a 83 year old female here for a Medicare wellness visit. Medicare Health Risk Assessment General Health Excellent Exercise: Minutes/Day 30 min Exercise: Days/Week 5 days Alcohol: Daily Use Never Alcohol: Drinks/Day Patient does not drink Alcohol: 6 or more drinks Never Feel off balance None Concerns: Teeth/Dentures None Concerns: Sexual function None Troubled by feelings None Frequency: Eating healthy diet Most of the time ADLs requiring help None Safety precautions in home/vehicle No grab bars in bathroom Smoke, vape, chews tobacco none Difficulty hearing None Difficulty seeing None - wears glasses as prescribed Current Providers Specialists: I have reviewed specialist-related care of the patient in the medical record. Optometry: Dr Shelton Medical/Family history review Reviewed and updated problem list, medical/surgical/family/social history, medications, and allergies. Opioid use review Opioid Medications (last 90 days) No data to display Depression screening Depression Screening PHQ-2 Score PHQ-9 Score 09/16/2023 0 0 Depression screening tool completed and reviewed. Based on score and interview, patient is not at risk for depression. Screening tool discussed with patient, and I recommended no further intervention at this time. Cognitive screening Mini Cog Score: 5 Cognitive screening reviewed and no further action needed (score 3-5) Functional Observation Was the patient's Timed Up AND Go test unsteady or ? 12 seconds? No Advance Care Planning Surrogate decision maker and/or advance care plan documented Measurements BP 130/76 Pulse 64 Resp 16 Wt 110 lb (49.9kg) SpO2 97% Follows closely with optometry Additional screenings: No results found. Assessment/Plan Medicare annual wellness visit, subsequent (Z00.00) - Counseled on healthy diet and regular exercise - Fall avoidance information provided - Personalized prevention plan provided CC: Patient presents with: Medicare Wellness Exam: Annual Medicare Wellness HPI Paty Rios is a 83 year old female who presents today for medicare wellness. HTN and HLD: Ms. Rios indicates that she is feeling well and denies any symptoms referable to elevated blood pressure. Specifically denies headache, chest pain, palpitations, dyspnea, and peripheral edema. Patient denies any side effects of her medication(s) and is compliant with their regimen. She does check BP's away from this office with average BP's in the 120s-130s/60s range. Paty works out regularly with walking when the weather is night. She watches her diet for sodium, low fat and low cholesterol most of the time. Last 3 Encounter BP Readings: Date: BP: 09/17/2023 130/76 03/19/2023 124/76 11/28/2022 128/82 Hypothyroidism: TSH slightly high. No missed doses or other changes. Denies fatigue, changes in weight, hair/nail/skin concerns, or edema. 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, unspecified Diverticulosis of colon (without mention of hemorrhage) Essential hypertension, benign Unspecified hypothyroidism PAST SURGICAL HISTORY Procedure Laterality Date BIOPSY BREAST OPEN INCISIONAL Bx of breast, incisional COLONOSCOPY FLX DX W/COLLJ SPEC WHEN PFRMD 03/15/2011 Colonoscopy DILATION AND CURETTAGE DXAND/THER NONOBSTETRIC Dilation AND curettage LAPS ABD PRTMANDOMENTUM DX W/WO SPEC BR/WA SPX Laparoscopy STEREO LOC FOR CORE BRST BX RT 08-05-11 TONSILLECTOMY AND ADENOIDECTOMY T/A (under age 10 years) XCAPSL CTRC RMVL INSJ IO LENS PROSTH W/O ECP 2010 Phacoemulsification/Intraocular Lens Insertion XCAPSL CTRC RMVL INSJ IO LENS PROSTH W/O ECP 2010 Phacoemulsification/Intraocular Lens Insertion ALLERGIES Augmentin [Amoxicillin-Pot Clavulanate], Fosamax [Alendronate Sodium], Grass Pollen, Leaves [Other], and Weeds [Other] MEDICATIONS losartan (COZAAR) 25 mg tablet Take 1 tablet by mouth once daily. levothyroxine (LEVOXYL) 100 mcg tablet Take 1 tablet by mouth once daily. On all days of the week except on Friday take half tablet atenolol (TENORMIN) 50 mg tablet Take 1 tablet by mouth once daily. hydroCHLOROthiazide 12.5 mg capsule Take 1 capsule by mouth once daily. simvastatin (ZOCOR) 10 mg tablet Take 1 tablet by mouth daily at bedtime. Cetirizine (ZYRTEC) 10 mg ORAL Cap Take by mouth. Take by mouth THERAPEUTIC MULTIVITAMIN ORAL TAB Take one(1) tablet daily. ASPIRIN 81 MG ORAL TAB Take one(1) tablet daily. FAMILY HISTORY Problem Relation Age of Onset Stroke Mother other (chf) Mother other (circulatory problems) Father Arthritis Brother Heart Maternal Grandmother Hypertension Daughter Thyroid Daughter Hypertension Son Hypertension Son (more content not included)... [facility] 09-17-2023 History of Present illness Narrative Images from the original note were not included. Paty Rios is a 83 year old female here for a Medicare wellness visit. Medicare Health Risk Assessment General Health Excellent Exercise: Minutes/Day 30 min Exercise: Days/Week 5 days Alcohol: Daily Use Never Alcohol: Drinks/Day Patient does not drink Alcohol: 6 or more drinks Never Feel off balance None Concerns: Teeth/Dentures None Concerns: Sexual function None Troubled by feelings None Frequency: Eating healthy diet Most of the time ADLs requiring help None Safety precautions in home/vehicle No grab bars in bathroom Smoke, vape, chews tobacco none Difficulty hearing None Difficulty seeing None - wears glasses as prescribed Current Providers Specialists: I have reviewed specialist-related care of the patient in the medical record. Optometry: Dr Shelton Medical/Family history review Reviewed and updated problem list, medical/surgical/family/social history, medications, and allergies. Opioid use review Opioid Medications (last 90 days) No data to display Depression screening Depression Screening PHQ-2 Score PHQ-9 Score 09/16/2023 0 0 Depression screening tool completed and reviewed. Based on score and interview, patient is not at risk for depression. Screening tool discussed with patient, and I recommended no further intervention at this time. Cognitive screening Mini Cog Score: 5 Cognitive screening reviewed and no further action needed (score 3-5) Functional Observation Was the patient's Timed Up & Go test unsteady or ? 12 seconds? No Advance Care Planning Surrogate decision maker and/or advance care plan documented Measurements BP 130/76 Pulse 64 Resp 16 Wt 110 lb (49.9kg) SpO2 97% Follows closely with optometry Additional screenings: No results found. Assessment/Plan Medicare annual wellness visit, subsequent (00.) - Counseled on healthy diet and regular exercise - Fall avoidance information provided - Personalized prevention plan provided CC: Patient presents with: Medicare Wellness Exam: Annual Medicare Wellness HPI Paty Rios is a 83 year old female who presents today for medicare wellness. HTN and HLD: Ms. Rios indicates that she is feeling well and denies any symptoms referable to elevated blood pressure. Specifically denies headache, chest pain, palpitations, dyspnea, and peripheral edema. Patient denies any side effects of her medication(s) and is compliant with their regimen. She does check BP's away from this office with average BP's in the 120s-130s/60s range. Paty works out regularly with walking when the weather is night. She watches her diet for sodium, low fat and low cholesterol most of the time. Last 3 Encounter BP Readings: Date: BP: 09/17/2023 130/76 03/19/2023 124/76 11/28/2022 128/82 Hypothyroidism: TSH slightly high. No missed doses or other changes. Denies fatigue, changes in weight, hair/nail/skin concerns, or edema. 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, unspecified Diverticulosis of colon (without mention of hemorrhage) Essential hypertension, benign Unspecified hypothyroidism PAST SURGICAL HISTORY Procedure Laterality Date BIOPSY BREAST OPEN INCISIONAL Bx of breast, incisional COLONOSCOPY FLX DX W/COLLJ SPEC WHEN PFRMD 03/15/2011 Colonoscopy DILATION & CURETTAGE DX&/THER NONOBSTETRIC Dilation & curettage LAPS ABD PRTM&OMENTUM DX W/WO SPEC BR/WA SPX Laparoscopy STEREO LOC FOR CORE BRST BX RT 08-05-11 TONSILLECTOMY & ADENOIDECTOMY <AGE 12 T/A (under age 10 years) XCAPSL CTRC RMVL INSJ IO LENS PROSTH W/O ECP 2010 Phacoemulsification/Intraocular Lens Insertion XCAPSL CTRC RMVL INSJ IO LENS PROSTH W/O ECP 2010 Phacoemulsification/Intraocular Lens Insertion ALLERGIES Augmentin [Amoxicillin-Pot Clavulanate], Fosamax [Alendronate Sodium], Grass Pollen, Leaves [Other], and Weeds [Other] MEDICATIONS losartan (COZAAR) 25 mg tablet Take 1 tablet by mouth once daily. levothyroxine (LEVOXYL) 100 mcg tablet Take 1 tablet by mouth once daily. On all days of the week except on Friday take half tablet atenolol (TENORMIN) 50 mg tablet Take 1 tablet by mouth once daily. hydroCHLOROthiazide 12.5 mg capsule Take 1 capsule by mouth once daily. simvastatin (ZOCOR) 10 mg tablet Take 1 tablet by mouth daily at bedtime. Cetirizine (ZYRTEC) 10 mg ORAL Cap Take by mouth. Take by mouth THERAPEUTIC MULTIVITAMIN ORAL TAB Take one(1) tablet daily. ASPIRIN 81 MG ORAL TAB Take one(1) tablet daily. FAMILY HISTORY Problem Relation Age of Onset Stroke Mother other (chf) Mother other (circulatory problems) Father Arthritis Brother Heart Maternal Grandmother Hypertension Daughter Thyroid Daughter Hypertension Son Hypertension Son Social History Tobacco Use Smoking status: Never Smokeless tobacco: Never Vaping Use Vaping Use: Never used Substance Use Topics Alcohol use: No Drug use: No PHYSICAL EXAM BP 130/76 Pulse 64 Resp 16 Wt 49.9 kg (110 lb) SpO2 97% BMI 21.48 kg/m General Appearance: well appearing, in no acute distress, alert Pysch: mood and affect broad and appropriate Skin: Skin color, texture, turgor normal for age; Eyes: conjunctiva pink and moist, no icterus, sclera white, non-injected Neck: Thyroid normal size and symmetric without palpable nodules, No adenopathy Lymph nodes: No cervical lymphadenopathy and No supraclavicular lymphadenopathy Lungs: Lungs clear to auscultation. No wheezing, rhonchi, rales. Heart: RRR without murmur, gallop, or rubs. No ectopy Health maintenance reviewed with patient: DTaP,Tdap,Td Vaccine(1 - Tdap) due on 03/19/2024 Shingrix Vaccine(2 of 3) due on 03/19/2024 Covid-19 Vaccine(2022-24 season) due on 03/19/2024 RSV Vaccine(1 - 1-dose 60+ series) due on 09/16/2024 Diabetes Screening due on 09/09/2026 Bone Density Screening Completed Influenza Vaccine Completed Pneumococcal Vaccine: 65+ Completed Advance Directive Discussion Discontinued DATA REVIEWED: Most recent labs ASSESSMENT/PLAN: 1. Medicare annual wellness visit, subsequent - ICD9: V70.0, ICD10: Z00.00 (primary diagnosis) - Counseled on healthy diet and regular exercise - Calcium intake with supplements or by diet of 1000 mg/day for under 50, 0973-7070 mg/day for 50+ - Depression screening tool completed and reviewed with patient. Based on score and interview, patient is not at risk for depression and recommended no further intervention at this time. - Follow up for annual exam in one year 2. Hypothyroidism, unspecified type - ICD9: 244.9, ICD10: E03.9 - Instructed patient on importance of taking on an empty stomach either first thing in the morning or at bedtime. - LEVOTHYROXINE 100 MCG TABLET - SIMVASTATIN 10 MG TABLET - TSH BLD - T4 FREE/FREE THYROX 3. Essential hypertension, benign - ICD9: 401.1, ICD10: I10 - Controlled - Continue current medications - Recommend home blood pressure monitoring, to bring results to next visit - Encouraged sodium restriction, DASH or Mediterranean diet - Recommend regular aerobic exercise - ATENOLOL 50 MG TABLET - HYDROCHLOROTHIAZIDE 12.5 MG CAPSULE 4. Mixed hyperlipidemia - ICD9: 272.2, ICD10: E78.2 - Controlled - Continue current medications - Counseled on healthy diet and regular exercise - Discussed need for and benefit of weight loss. BMI 21.48 kg/(m^2) 5. Medication management - ICD9: V58.69, ICD10: Z79.899 - TSH BLD - T4 FREE/FREE THYROX Prescription instructions reviewed with patient as applicable. Potential red flag symptoms discussed with the patient. Reviewed appropriate action plan to take if red flag symptoms occur. Patient agreeable to treatment plan. Martha Funk APRN.CNP documented in this encounter [facility] 09-17-2023 Instructions Martha Funk APRN.CNP - 09/17/2023 8:15 AM EDT Screening schedule The following prevention plan is recommended: There are no preventive care reminders to display for this patient. WHAT YOU CAN DO TO PREVENT FALLS Many falls can be prevented. By making some changes, you can lower your chances of falling. Four things YOU can do to prevent falls for you* and your caregiver 1. Begin a regular exercise program Exercise is one of the most important ways to lower your chances of falling. It makes you stronger and helps you feel better. Exercises that improve balance and coordination (like Kenrick Chi) are the most helpful. Lack of exercise leads to weakness and increases your chances of falling. Ask your doctor or health care provider about the best type of exercise program for you. 2. Have your health care provider review your medicines Have your doctor or pharmacist review all the medicines you take, even [id number] medicines. As you get older, the way medicines work in your body can change. Some medicines, or combinations of medicines, can make you sleepy or dizzy and can cause you to fall. 3. Have your vision checked Have your eyes checked by an eye doctor at least once a year. You may be wearing the wrong glasses or have a condition like glaucoma or cataracts that limits your vision. Poor vision can increase your chances of falling. 4. Make your home safer About half of all falls happen at home. To make your home safer: Remove things you can trip over (like papers, books, clothes, and shoes) from stairs and places where you walk. Remove small throw rugs or use double-sided tape to keep the rugs from slipping. Keep items you use often in cabinets you can reach easily without using a step stool. Have grab bars put in next to your toilet and in the tub or shower. Use non-slip mats in the bathtub and on shower floors. Improve the lighting in your home. As you get older, you need brighter lights to see well. Hang light-weight curtains or shades to reduce glare. Have handrails and lights put in on all staircases. Wear shoes both inside and outside the house. Avoid going barefoot or wearing slippers. For more information, contact: Centers for Disease Control and Prevention www.cdc.gov/injury * This information may not apply if you have certain medical conditions. documented in this encounter [facility] 09-03-2023 Miscellaneous Notes Patient has been identified by name and date of : Yes Patient phones for refill(s): Requested Prescriptions Pending Prescriptions Disp Refills losartan (COZAAR) 25 mg tablet 90 tablet 1 Sig: Take 1 tablet by mouth once daily. Date of last office visit in primary care: 11/28/2022 Date of next office visit in primary care: Visit date not found Please advise. Thank you. Manisha Appiah LPN. documented in this encounter [facility] 03-19-2023 History of Present illness Narrative CC: Patient presents with: Recheck: 6 month follow up Immunizations: Flu vaccination HPI Paty Rios is a 82 year old female who presents today for routine follow up. Hypothyroidism: Takes medication as ordered. Recent TSH within acceptable ranges and denies change in weight, change in energy, or change in hair/nails. Wants the flu vaccine today but only wants regular dosing, not the high dose typically used for her age range. States the high dose makes her feel terrible. HTN and HLD: Ms. Rios indicates that she is feeling well and denies any symptoms referable to elevated blood pressure. Specifically denies headache, chest pain, palpitations, dyspnea, and peripheral edema. Patient denies any side effects of her medication(s) and is compliant with their regimen. She does check BP's away from this office with average BP's in the 110s-120s/60s-70s range. Paty works out regularly 7 times per week with walking. She watches her diet for sodium, low fat and low cholesterol most of the time. Last 3 Encounter BP Readings: Date: BP: 03/19/2023 124/76 11/28/2022 128/82 09/16/2022 120/60 REVIEW OF SYSTEMS General: no fevers, no chills, no night sweats, no recurrent infections, no change in appetite, no change in energy, and no significant changes in weight Respiratory: no cough, no wheezing, no shortness of breath, no hemoptysis Cardiovascular: no chest pain, no chest pressure, no palpitations, and no swelling Neurologic: No headache, weakness, numbness, tingling, dizziness, memory loss, syncope. 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, unspecified Diverticulosis of colon (without mention of hemorrhage) Essential hypertension, benign Unspecified hypothyroidism PAST SURGICAL HISTORY Procedure Laterality Date BIOPSY BREAST OPEN INCISIONAL Bx of breast, incisional COLONOSCOPY FLX DX W/COLLJ SPEC WHEN PFRMD 03/15/2011 Colonoscopy DILATION & CURETTAGE DX&/THER NONOBSTETRIC Dilation & curettage LAPS ABD PRTM&OMENTUM DX W/WO SPEC BR/WA SPX Laparoscopy STEREO LOC FOR CORE BRST BX RT 1-30-12 TONSILLECTOMY & ADENOIDECTOMY <AGE 10 T/A (under age 10 years) XCAPSL CTRC RMVL INSJ IO LENS PROSTH W/O ECP 2010 Phacoemulsification/Intraocular Lens Insertion XCAPSL CTRC RMVL INSJ IO LENS PROSTH W/O ECP 2010 Phacoemulsification/Intraocular Lens Insertion ALLERGIES Augmentin [Amoxicillin-Pot Clavulanate], Fosamax [Alendronate Sodium], Grass Pollen, Leaves [Other], and Weeds [Other] MEDICATIONS losartan (COZAAR) 25 mg tablet Take 1 tablet by mouth once daily. levothyroxine (LEVOXYL) 100 mcg tablet Take 1 tablet by mouth once daily. On all days of the week except on Friday take half tablet atenolol (TENORMIN) 50 mg tablet Take 1 tablet by mouth once daily. hydroCHLOROthiazide 12.5 mg capsule Take 1 capsule by mouth once daily. simvastatin (ZOCOR) 10 mg tablet Take 1 tablet by mouth daily at bedtime. Cetirizine (ZYRTEC) 10 mg ORAL Cap Take by mouth. Take by mouth THERAPEUTIC MULTIVITAMIN ORAL TAB Take one(1) tablet daily. ASPIRIN 81 MG ORAL TAB Take one(1) tablet daily. FAMILY HISTORY Problem Relation Age of Onset Stroke Mother other (chf) Mother other (circulatory problems) Father Arthritis Brother Heart Maternal Grandmother Hypertension Daughter Thyroid Daughter Hypertension Son Hypertension Son Social History Tobacco Use Smoking status: Never Smokeless tobacco: Never Substance Use Topics Alcohol use: No Drug use: No PHYSICAL EXAM BP 124/76 Pulse 68 Resp 16 Wt 50.3 kg (111 lb) SpO2 97% BMI 21.68 kg/m General Appearance: well appearing, in no acute distress, alert Skin: Skin color, texture, turgor normal for age; Eyes: conjunctiva pink and moist, no icterus, sclera white, non-injected Neck: Thyroid normal size and symmetric without palpable nodules, No adenopathy Lymph nodes: No cervical lymphadenopathy, No supraclavicular lymphadenopathy, No axillary lymphadenopathy., and No inguinal lymphadenopathy. Lungs: Lungs clear to auscultation. No wheezing, rhonchi, rales. Heart: RRR without murmur, gallop, or rubs. No ectopy Health maintenance reviewed with patient: DTaP,Tdap,Td Vaccine(1 - Tdap) due on 04/09/2006 Shingrix Vaccine(2 of 3) due on 06/13/2011 Covid-19 Vaccine(6 - Moderna series) due on 08/26/2022 Influenza Vaccine(1) due on 03/07/2023 Diabetes Screening due on 09/11/2025 Bone Density Screening Completed Pneumococcal Vaccine: 65+ Completed Advance Directive Discussion Discontinued DATA REVIEWED: Most recent labs ASSESSMENT/PLAN: 1. Essential hypertension, benign - ICD9: 401.1, ICD10: I10 (primary diagnosis) - Controlled - Continue current medications - Recommend home blood pressure monitoring, to bring results to next visit - Encouraged sodium restriction, DASH or Mediterranean diet - Recommend regular aerobic exercise - COMP METABOLIC PANEL - CBC 2. Mixed hyperlipidemia - ICD9: 272.2, ICD10: E78.2 - Most recent Lipids controlled - Continue current medications - Counseled on healthy diet and regular exercise - Discussed need for and benefit of weight loss. BMI 21.68 kg/(m^2) - COMP METABOLIC PANEL - LIPID PANEL BASIC 3. Hypothyroidism, unspecified type - ICD9: 244.9, ICD10: E03.9 - Instructed patient on importance of taking on an empty stomach either first thing in the morning or at bedtime. - TSH BLD 4. Need for influenza vaccination - ICD9: V04.81, ICD10: Z23 - INFLUENZA VACCINE, AGE 6 MO - 64 YR, QUADRIVALENT (AFLURIA, FLULAVAL, FLUZONE) 5. Annual physical exam - ICD9: V70.0, ICD10: Z00.00 Not reviewed today, labs ordered to be reviewed at next appointment. - COMP METABOLIC PANEL - CBC - LIPID PANEL BASIC - TSH BLD Prescription instructions reviewed with patient as applicable. Potential red flag symptoms discussed with the patient. Reviewed appropriate action plan to take if red flag symptoms occur. Patient agreeable to treatment plan. Martha Funk APRN.CNP documented in this encounter [facility] 03-19-2023 Miscellaneous Notes Patient notified of results, verbalized understanding and has f/u appt with Martha Funk this AM. Lizbet Pham MA Tsh is normal please have patient follow up with PCP. Thank you! documented in this encounter [facility] 09-16-2022 History of Present illness Narrative Reason for Visit No chief complaint on file. Paty Rios is a 82 year old female who presents here today for Above Complaints.. Health Maintenance DTAP,TDAP,TD(1 - Tdap) SHINGRIX VACCINE(2 of 3) HPI Patient does not cook and she does not eat a lot and does not eat balanced meals, She eats small amounts 4 times a day. She does not get the fresh fruits etc. Patient does not like this weather and does not go out and walk etc. Patient does not stress on any much of anything. Lost her 87 year old friend recently. They have been friends for 50 years. Suggested grief counseling. HTN: Compliant with medications. Denies any chest pain, palpitations, or edema. No SOB. Doesn't check BP at home generally. Careful with diet to avoid salt, trying to eat more fruits and vegetables, exercises regularly. HPL: Reviewed test results with patient , takes medications regularly , does not report side effects. Conscious to avoid red meats, full fat dairy and its by products. Exercising 3 to 5 times a week. No problem-specific Assessment & Plan notes found for this encounter. 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, unspecified Diverticulosis of colon (without mention of hemorrhage) Essential hypertension, benign Unspecified hypothyroidism PAST SURGICAL HISTORY Procedure Laterality Date BIOPSY BREAST OPEN INCISIONAL Bx of breast, incisional COLONOSCOPY FLX DX W/COLLJ SPEC WHEN PFRMD 03/15/2011 Colonoscopy DILATION & CURETTAGE DX&/THER NONOBSTETRIC Dilation & curettage LAPS ABD PRTM&OMENTUM DX W/WO SPEC BR/WA SPX Laparoscopy STEREO LOC FOR CORE BRST BX RT 3012 TONSILLECTOMY & ADENOIDECTOMY <AGE 10 T/A (under age 10 years) XCAPSL CTRC RMVL INSJ IO LENS PROSTH W/O ECP 2010 Phacoemulsification/Intraocular Lens Insertion XCAPSL CTRC RMVL INSJ IO LENS PROSTH W/O ECP 2010 Phacoemulsification/Intraocular Lens Insertion FAMILY HISTORY Problem Relation Age of Onset Stroke Mother other (chf) Mother other (circulatory problems) Father Arthritis Brother Heart Maternal Grandmother Hypertension Daughter Thyroid Daughter Hypertension Son Hypertension Son Social History Tobacco Use Smoking status: Never Smokeless tobacco: Never Substance Use Topics Alcohol use: No Drug use: No Past medical history, appointments, medications, allergies reviewed. Pertinent Lab/Diagnostic Studies are reviewed and discussed today Current Outpatient Medications: losartan (COZAAR) 25 mg tablet simvastatin (ZOCOR) 10 mg tablet hydroCHLOROthiazide 12.5 mg capsule atenolol (TENORMIN) 50 mg tablet levothyroxine (LEVOXYL) 100 mcg tablet Cetirizine (ZYRTEC) 10 mg ORAL Cap THERAPEUTIC MULTIVITAMIN ORAL TAB ASPIRIN 81 MG ORAL TAB Review of Systems CONSTITUTIONAL: No fevers, chills night sweats, unintended weight loss CARDIOVASCULAR: No chest pain, dyspnea, palpitations, orthopnea, PND, ankle edema. PULM: No dyspnea, unexplained cough. GI: No dysphagia/odynophagia, problematic reflux, constipation, diarrhea, changes in stool habits, hematochezia, melena. : No new urinary complaints, including dysuria, gross hematuria or pyuria. NEURO: No new balance problems, peripheral weakness/paresthesias or numbness of concern. Physical Exam BP 120/60 (BP Site: Left Arm, BP Position: Sitting, BP Cuff Size: Regular Adult) Pulse 64 Temp 36.3 C (97.3 F) Resp 12 Ht 152.4 cm (5') Wt 50.8 kg (112 lb) SpO2 97% BMI 21.87 kg/m General appearance: Well appearing, alert, in no acute distress, well nourished. Skin: Skin color, texture, turgor normal, no suspicious rashes or lesions Head: Normocephalic, no masses, lesions, tenderness or abnormalities Eyes: Anicteric sclera. Pupils are equally round and reactive to light. Extraocular movements are intact. Lungs: Lungs clear to auscultation. No wheezing, rhonchi, rales Heart: RRR without murmur, gallop, or rubs. Extremities: No deformities, edema, skin discoloration, clubbing or cyanosis. Good capillary refill. ASSESSMENT/PLAN: 1. Elevated MCV - ICD9: 790.09, ICD10: R71.8 (primary diagnosis) - VITAMIN B12 BLOOD 2. Hypothyroidism, unspecified type - ICD9: 244.9, ICD10: E03.9 - Instructed patient on importance of taking on an empty stomach either first thing in the morning or at bedtime. Stable - LEVOTHYROXINE 100 MCG TABLET - SIMVASTATIN 10 MG TABLET - TSH BLD 3. Essential hypertension, benign - ICD9: 401.1, ICD10: I10 - good control - Recommended regular aerobic exercise. - Recommend home blood pressure monitoring, to bring results in on next visit - Goal of BP <130/80 - ATENOLOL 50 MG TABLET - HYDROCHLOROTHIAZIDE 12.5 MG CAPSULE 4. Mixed hyperlipidemia - ICD9: 272.2, ICD10: E78.2 - good control - Continue current medication. Russ Barone MD documented in this encounter [facility] 09-14-2022 Miscellaneous Notes Patient notified of below recommendation, verbalized understanding. Manisha Appiah LPN ----- Message from Russ Barone MD sent at 09/12/2022 1:47 PM EST ----- Please review your test results , will discuss in detail at your upcoming office visit. Regards, Russ Barone MD documented in this encounter [facility] 03-18-2022 History of Present illness Narrative Reason for Visit Patient presents with: F/U 6 Month Immunizations: Flu vaccination Paty Rios is a 81 year old female who presents here today for Above Complaints. Health Maintenance DTAP,TDAP,TD(1 - Tdap) SHINGRIX VACCINE(2 of 3) INFLUENZA(1) HPI We looked at her weight trajectory, she notes when she was working 5 years ago she did not eat right and was 12 pounds or so heavier... right now she is not working and not stress eating and is very active outside. She walks a couple times a day,even when it is cold. She intends to try to do that. Hypothyroidism. She is doing well on her current dose of Synthroid. Denies fatigue, cold intolerance and swelling in feet. TSH recently checked and normal. No problem-specific Assessment & Plan notes found for this encounter. 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, unspecified Diverticulosis of colon (without mention of hemorrhage) Essential hypertension, benign Unspecified hypothyroidism PAST SURGICAL HISTORY Procedure Laterality Date BIOPSY BREAST OPEN INCISIONAL Bx of breast, incisional COLONOSCOPY FLX DX W/COLLJ SPEC WHEN PFRMD 03/15/2011 Colonoscopy DILATION & CURETTAGE DX&/THER NONOBSTETRIC Dilation & curettage LAPS ABD PRTM&OMENTUM DX W/WO SPEC BR/WA SPX Laparoscopy STEREO LOC FOR CORE BRST BX RT 08-05-11 TONSILLECTOMY & ADENOIDECTOMY <AGE 10 T/A (under age 10 years) XCAPSL CTRC RMVL INSJ IO LENS PROSTH W/O ECP 2010 Phacoemulsification/Intraocular Lens Insertion XCAPSL CTRC RMVL INSJ IO LENS PROSTH W/O ECP 2010 Phacoemulsification/Intraocular Lens Insertion FAMILY HISTORY Problem Relation Age of Onset Stroke Mother other (chf) Mother other (circulatory problems) Father Arthritis Brother Heart Maternal Grandmother Hypertension Daughter Thyroid Daughter Hypertension Son Hypertension Son Social History Tobacco Use Smoking status: Never Smokeless tobacco: Never Substance Use Topics Alcohol use: No Drug use: No Past medical history, appointments, medications, allergies reviewed. Pertinent Lab/Diagnostic Studies are reviewed and discussed today Current Outpatient Medications: losartan (COZAAR) 25 mg tablet simvastatin (ZOCOR) 10 mg tablet hydroCHLOROthiazide 12.5 mg capsule atenolol (TENORMIN) 50 mg tablet levothyroxine (LEVOXYL) 100 mcg tablet Cetirizine (ZYRTEC) 10 mg ORAL Cap THERAPEUTIC MULTIVITAMIN ORAL TAB ASPIRIN 81 MG ORAL TAB Review of Systems CONSTITUTIONAL: No fevers, chills night sweats, unintended weight loss CARDIOVASCULAR: No chest pain, dyspnea, palpitations, orthopnea, PND, ankle edema. PULM: No dyspnea, unexplained cough. GI: No dysphagia/odynophagia, problematic reflux, constipation, diarrhea, changes in stool habits, hematochezia, melena. : No new urinary complaints, including dysuria, gross hematuria or pyuria. NEURO: No new balance problems, peripheral weakness/paresthesias or numbness of concern. Physical Exam BP 120/62 Pulse 60 Resp 16 Wt 49.9 kg (110 lb) BMI 21.48 kg/m General appearance: Well appearing, alert, in no acute distress, well nourished. Skin: Skin color, texture, turgor normal, no suspicious rashes or lesions Head: Normocephalic, no masses, lesions, tenderness or abnormalities Eyes: Anicteric sclera. Pupils are equally round and reactive to light. Extraocular movements are intact. Lungs: Lungs clear to auscultation. No wheezing, rhonchi, rales Heart: RRR without murmur, gallop, or rubs. Extremities: No deformities, edema, skin discoloration, clubbing or cyanosis. Good capillary refill. ASSESSMENT/PLAN: 1. Essential hypertension, benign - ICD9: 401.1, ICD10: I10 (primary diagnosis) Cont the bp medication - LIPID PANEL BASIC - COMP METABOLIC PANEL - CBC + DIFF 2. Need for influenza vaccination - ICD9: V04.81, ICD10: Z23 - INFLUENZA VACCINE QUADRIVALENT 6 MO - 64 YRS IM 3. Mixed hyperlipidemia - ICD9: 272.2, ICD10: E78.2 4. Hypothyroidism, unspecified type - ICD9: 244.9, ICD10: E03.9 Cont the hypothyroidism Russ Barone MD documented in this encounter [facility] 10-04-2021 Miscellaneous Notes Patient has been identified by name and date of : Yes Patient phones for refill(s): Pending Prescriptions Disp Refills LOSARTAN 25 MG TABLET 30 tablet 3 Sig: Take 1 tablet by mouth once daily. HERON: No Date of last office visit in primary care: 09/12/2021 6 month follow-up: 03/18/2022 Last 2 Encounter Wt Readings: Date: Wt: 09/12/2021 51.7 kg (114 lb) 03/15/2021 51.7 kg (114 lb) Previous labs/tests for medication: Blood Pressure: BUN (mg/dL) Date Value 09/10/2021 16 09/08/2020 13 Sodium (mmol/L) Date Value 09/10/2021 142 09/08/2020 142 Last 1 Encounter BP Readings: Date: BP: 09/12/2021 120/58 Please advise. Thank you. Manisha Appiah LPN documented in this encounter [facility] 10-04-2021 Miscellaneous Notes Called [facility], they did not receive Levothyroxine 100mcg RX on 03/15/2021. Asking for new. Patient has been identified by name and date of : Yes Patient phones for refill(s): Pending Prescriptions Disp Refills SIMVASTATIN 10 MG TABLET 90 tablet 3 Sig: Take 1 tablet by mouth daily at bedtime. HERON: No LEVOTHYROXINE 100 MCG TABLET 90 tablet 3 Sig: Take 1 tablet by mouth once daily. On all days of the week except on Friday take half tablet HERON: No Date of last office visit in primary care: 09/12/2021 6 month follow-up: 03/18/2022 Last 2 Encounter Wt Readings: Date: Wt: 09/12/2021 51.7 kg (114 lb) 03/15/2021 51.7 kg (114 lb) Previous labs/tests for medication: Thyroid: TSH (uU/mL) Date Value 04/14/2021 0.423 Please advise. Thank you. Manisha Appiah LPN documented in this encounter [facility] 10-04-2021 Miscellaneous Notes NOV 03/18/22 BRENDA 09/12/21 Patient electronically sent a request for the following prescription(s) Pending Prescriptions Disp Refills HYDROCHLOROTHIAZIDE 12.5 MG CAPSULE 90 capsule 3 Sig: Take 1 capsule by mouth once daily. HERON: No ATENOLOL 50 MG TABLET 90 tablet 3 Sig: Take 1 tablet by mouth once daily. HERON: No Patient aware RX will be sent to pharmacy. No need to notify patient. Please review. Claire Sheriff MA documented in this encounter [facility] Evaluation note Diagnosis Essential hypertension, benign [facility] Elevated blood sugar Other abnormal glucose [facility] Diagnosis Hypothyroidism, unspecified type [facility] Diagnosis Hypothyroidism Unspecified hypothyroidism [facility] Diagnosis Essential hypertension, benign- Primary Need for influenza vaccination Need for prophylactic vaccination and inoculation against influenza Mixed hyperlipidemia Hypothyroidism, unspecified type Elevated blood sugar Other abnormal glucose [facility] Diagnosis Elevated MCV- Primary Other abnormality of red blood cells Hypothyroidism, unspecified type Essential hypertension, benign Mixed hyperlipidemia [facility] Diagnosis Elevated blood sugar Other abnormal glucose [facility] Diagnosis Essential hypertension, benign- Primary Mixed hyperlipidemia Hypothyroidism, unspecified type Need for influenza vaccination Need for prophylactic vaccination and inoculation against influenza Annual physical exam Routine general medical examination at a health care facility [facility] Diagnosis Elevated blood sugar Other abnormal glucose [facility] Diagnosis Medicare annual wellness visit, subsequent- Primary Routine general medical examination at a health care facility Hypothyroidism, unspecified type Essential hypertension, benign Mixed hyperlipidemia Medication management Encounter for long-term (current) use of other medications [facility] Diagnosis Establishing care with new doctor, encounter for- Primary Other reasons for seeking consultation BENIGN HYPERTENSION Essential hypertension, benign HYPOTHYROIDISM NOS Unspecified hypothyroidism Dysthymic disorder Hyperlipidemia Other and unspecified hyperlipidemia BENIGN HYPERTENSION- Primary Essential hypertension, benign Acquired hypothyroidism Unspecified hypothyroidism Dysthymic disorder Mixed hyperlipidemia Hypothyroidism, unspecified type- Primary Mixed hyperlipidemia Essential hypertension, benign Vitamin D deficiency Unspecified vitamin D deficiency Degenerative arthritis of finger, right Need for vaccination Need for prophylactic vaccination and inoculation against unspecified single disease Elevated blood sugar Other abnormal glucose [facility] Diagnosis Establishing care with new doctor, encounter for- Primary Other reasons for seeking consultation BENIGN HYPERTENSION Essential hypertension, benign HYPOTHYROIDISM NOS Unspecified hypothyroidism Dysthymic disorder Hyperlipidemia Other and unspecified hyperlipidemia BENIGN HYPERTENSION- Primary Essential hypertension, benign Acquired hypothyroidism Unspecified hypothyroidism Dysthymic disorder Mixed hyperlipidemia Hypothyroidism, unspecified type- Primary Mixed hyperlipidemia Essential hypertension, benign Vitamin D deficiency Unspecified vitamin D deficiency Degenerative arthritis of finger, right Need for vaccination Need for prophylactic vaccination and inoculation against unspecified single disease Hives- Primary Urticaria, unspecified [facility] Diagnosis Establishing care with new doctor, encounter for- Primary Other reasons for seeking consultation BENIGN HYPERTENSION Essential hypertension, benign HYPOTHYROIDISM NOS Unspecified hypothyroidism Dysthymic disorder Hyperlipidemia Other and unspecified hyperlipidemia BENIGN HYPERTENSION- Primary Essential hypertension, benign Acquired hypothyroidism Unspecified hypothyroidism Dysthymic disorder Mixed hyperlipidemia Hypothyroidism, unspecified type- Primary Mixed hyperlipidemia Essential hypertension, benign Vitamin D deficiency Unspecified vitamin D deficiency Degenerative arthritis of finger, right Need for vaccination Need for prophylactic vaccination and inoculation against unspecified single disease Oral lesion- Primary Other and unspecified diseases of the oral soft tissues Left ear pain Otalgia, unspecified [facility] Diagnosis Establishing care with new doctor, encounter for- Primary Other reasons for seeking consultation BENIGN HYPERTENSION Essential hypertension, benign HYPOTHYROIDISM NOS Unspecified hypothyroidism Dysthymic disorder Hyperlipidemia Other and unspecified hyperlipidemia BENIGN HYPERTENSION- Primary Essential hypertension, benign Acquired hypothyroidism Unspecified hypothyroidism Dysthymic disorder Mixed hyperlipidemia Hypothyroidism, unspecified type- Primary Mixed hyperlipidemia Essential hypertension, benign Vitamin D deficiency Unspecified vitamin D deficiency Degenerative arthritis of finger, right Need for vaccination Need for prophylactic vaccination and inoculation against unspecified single disease Essential hypertension, benign- Primary Hypothyroidism, unspecified type Herpes zoster without complication Herpes zoster without mention of complication Annual physical exam Routine general medical examination at a health care facility [facility] Diagnosis Establishing care with new doctor, encounter for- Primary Other reasons for seeking consultation BENIGN HYPERTENSION Essential hypertension, benign HYPOTHYROIDISM NOS Unspecified hypothyroidism Dysthymic disorder Hyperlipidemia Other and unspecified hyperlipidemia BENIGN HYPERTENSION- Primary Essential hypertension, benign Acquired hypothyroidism Unspecified hypothyroidism Dysthymic disorder Mixed hyperlipidemia Hypothyroidism, unspecified type- Primary Mixed hyperlipidemia Essential hypertension, benign Vitamin D deficiency Unspecified vitamin D deficiency Degenerative arthritis of finger, right Need for vaccination Need for prophylactic vaccination and inoculation against unspecified single disease Need for influenza vaccination- Primary Need for prophylactic vaccination and inoculation against influenza [facility] Diagnosis Establishing care with new doctor, encounter for- Primary Other reasons for seeking consultation BENIGN HYPERTENSION Essential hypertension, benign HYPOTHYROIDISM NOS Unspecified hypothyroidism Dysthymic disorder Hyperlipidemia Other and unspecified hyperlipidemia BENIGN HYPERTENSION- Primary Essential hypertension, benign Acquired hypothyroidism Unspecified hypothyroidism Dysthymic disorder Mixed hyperlipidemia Hypothyroidism, unspecified type- Primary Mixed hyperlipidemia Essential hypertension, benign Vitamin D deficiency Unspecified vitamin D deficiency Degenerative arthritis of finger, right Need for vaccination Need for prophylactic vaccination and inoculation against unspecified single disease Elevated blood sugar Other abnormal glucose documented in this encounter [facility] note* Diagnosis Establishing care with new doctor, encounter for- Primary Other reasons for seeking consultation BENIGN HYPERTENSION Essential hypertension, benign HYPOTHYROIDISM NOS Unspecified hypothyroidism Dysthymic disorder Hyperlipidemia Other and unspecified hyperlipidemia BENIGN HYPERTENSION- Primary Essential hypertension, benign Acquired hypothyroidism Unspecified hypothyroidism Dysthymic disorder Mixed hyperlipidemia Hypothyroidism, unspecified type- Primary Mixed hyperlipidemia Essential hypertension, benign Vitamin D deficiency Unspecified vitamin D deficiency Degenerative arthritis of finger, right Need for vaccination Need for prophylactic vaccination and inoculation against unspecified single disease Medicare annual wellness visit, subsequent- Primary Routine general medical examination at a health care facility Encounter for immunization Need for other specified prophylactic vaccination against single bacterial disease Arthritis of carpometacarpal (CMC) joint of right thumb Medication management Encounter for long-term (current) use of other medications Hypothyroidism, unspecified type Essential hypertension, benign documented in this encounter [facility] note* Diagnosis Establishing care with new doctor, encounter for- Primary Other reasons for seeking consultation BENIGN HYPERTENSION Essential hypertension, benign HYPOTHYROIDISM NOS Unspecified hypothyroidism Dysthymic disorder Hyperlipidemia Other and unspecified hyperlipidemia BENIGN HYPERTENSION- Primary Essential hypertension, benign Acquired hypothyroidism Unspecified hypothyroidism Dysthymic disorder Mixed hyperlipidemia Hypothyroidism, unspecified type- Primary Mixed hyperlipidemia Essential hypertension, benign Vitamin D deficiency Unspecified vitamin D deficiency Degenerative arthritis of finger, right Need for vaccination Need for prophylactic vaccination and inoculation against unspecified single disease Essential hypertension, benign documented in this encounter [facility] note* Diagnosis Establishing care with new doctor, encounter for- Primary Other reasons for seeking consultation BENIGN HYPERTENSION Essential hypertension, benign HYPOTHYROIDISM NOS Unspecified hypothyroidism Dysthymic disorder Hyperlipidemia Other and unspecified hyperlipidemia BENIGN HYPERTENSION- Primary Essential hypertension, benign Acquired hypothyroidism Unspecified hypothyroidism Dysthymic disorder Mixed hyperlipidemia Hypothyroidism, unspecified type- Primary Mixed hyperlipidemia Essential hypertension, benign Vitamin D deficiency Unspecified vitamin D deficiency Degenerative arthritis of finger, right Need for vaccination Need for prophylactic vaccination and inoculation against unspecified single disease [facility]othyroidism, unspecified type [facility] Establishing care with new doctor, encounter for- Primary Other reasons for seeking consultation BENIGN HYPERTENSION Essential hypertension, benign HYPOTHYROIDISM NOS Unspecified hypothyroidism Dysthymic disorder Hyperlipidemia Other and unspecified hyperlipidemia BENIGN HYPERTENSION- Primary Essential hypertension, benign Acquired hypothyroidism Unspecified hypothyroidism Dysthymic disorder Mixed hyperlipidemia Hypothyroidism, unspecified type- Primary Mixed hyperlipidemia Essential hypertension, benign Vitamin D deficiency Unspecified vitamin D deficiency Degenerative arthritis of finger, right Need for vaccination Need for prophylactic vaccination and inoculation against unspecified single disease Arthritis of carpometacarpal (CMC) joint of right thumb documented in this encounter [facility] Advance Directives Documents on File Type Date Recorded 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 Advance Directive(s) 08/07/2011 12:00 AM Advance Directive(s) 08/21/2006 12:00 AM Documents on File Type Date 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 Advance Directive(s) 08/07/2011 Advance Directive(s) 08/21/2006 Summary Purpose Family History No Family History Records Found Additional Source Comments Source Comments (unrecognize d section and content) In the event this informatio n is protected by the Federal Confidentiality of Alcohol and Drug Abuse Patient Records regulations: The Federal rules restrict any use of the information to criminally investigate or prosecute any alcohol or drug abuse patient.[facility] the event this information is protected by the Federal Confidentiality of Alcohol and Drug Abuse Patient Records regulations: The Federal rules restrict any use of the information to criminally investigate or prosecute any alcohol or drug abuse patient.[facility] the event this information is protected by the Federal Confidentiality of Alcohol and Drug Abuse Patient Records regulations: The Federal rules restrict any use of the information to criminally investigate or prosecute any alcohol or drug abuse patient.[facility] the event this information is protected by the Federal Confidentiality of Alcohol and Drug Abuse Patient Records regulations: The Federal rules restrict any use of the information to criminally investigate or prosecute any alcohol or drug abuse patient.[facility] the event this information is protected by the Federal Confidentiality of Alcohol and Drug Abuse Patient Records regulations: The Federal rules restrict any use of the information to criminally investigate or prosecute any alcohol or drug abuse patient.[facility] the event this information is protected by the Federal Confidentiality of Alcohol and Drug Abuse Patient Records regulations: The Federal rules restrict any use of the information to criminally investigate or prosecute any alcohol or drug abuse patient.[facility] the event this information is protected by the Federal Confidentiality of Alcohol and Drug Abuse Patient Records regulations: The Federal rules restrict any use of the information to criminally investigate or prosecute any alcohol or drug abuse patient.[facility] the event this information is protected by the Federal Confidentiality of Alcohol and Drug Abuse Patient Records regulations: The Federal rules restrict any use of the information to criminally investigate or prosecute any alcohol or drug abuse patient.[facility] the event this information is protected by the Federal Confidentiality of Alcohol and Drug Abuse Patient Records regulations: The Federal rules restrict any use of the information to criminally investigate or prosecute any alcohol or drug abuse patient.[facility] the event this information is protected by the Federal Confidentiality of Alcohol and Drug Abuse Patient Records regulations: The Federal rules restrict any use of the information to criminally investigate or prosecute any alcohol or drug abuse patient.[facility] the event this information is protected by the Federal Confidentiality of Alcohol and Drug Abuse Patient Records regulations: The Federal rules restrict any use of the information to criminally investigate or prosecute any alcohol or drug abuse patient.[facility] the event this information is protected by the Federal Confidentiality of Alcohol and Drug Abuse Patient Records regulations: The Federal rules restrict any use of the information to criminally investigate or prosecute any alcohol or drug abuse patient.[facility] the event this information is protected by the Federal Confidentiality of Alcohol and Drug Abuse Patient Records regulations: The Federal rules restrict any use of the information to criminally investigate or prosecute any alcohol or drug abuse patient.[facility] the event this information is protected by the Federal Confidentiality of Alcohol and Drug Abuse Patient Records regulations: The Federal rules restrict any use of the information to criminally investigate or prosecute any alcohol or drug abuse patient.[facility] the event this information is protected by the Federal Confidentiality of Alcohol and Drug Abuse Patient Records regulations: The Federal rules restrict any use of the information to criminally investigate or prosecute any alcohol or drug abuse patient.[facility] the event this information is protected by the Federal Confidentiality of Alcohol and Drug Abuse Patient Records regulations: The Federal rules restrict any use of the information to criminally investigate or prosecute any alcohol or drug abuse patient.[facility] the event this information is protected by the Federal Confidentiality of Alcohol and Drug Abuse Patient Records regulations: The Federal rules restrict any use of the information to criminally investigate or prosecute any alcohol or drug abuse patient.[facility] the event this information is protected by the Federal Confidentiality of Alcohol and Drug Abuse Patient Records regulations: The Federal rules restrict any use of the information to criminally investigate or prosecute any alcohol or drug abuse patient.[facility] the event this information is protected by the Federal Confidentiality of Alcohol and Drug Abuse Patient Records regulations: The Federal rules restrict any use of the information to criminally investigate or prosecute any alcohol or drug abuse patient.[facility] the event this information is protected by the Federal Confidentiality of Alcohol and Drug Abuse Patient Records regulations: The Federal rules restrict any use of the information to criminally investigate or prosecute any alcohol or drug abuse patient.[facility] the event this information is protected by the Federal Confidentiality of Alcohol and Drug Abuse Patient Records regulations: The Federal rules restrict any use of the information to criminally investigate or prosecute any alcohol or drug abuse patient.[facility] the event this information is protected by the Federal Confidentiality of Alcohol and Drug Abuse Patient Records regulations: The Federal rules restrict any use of the information to criminally investigate or prosecute any alcohol or drug abuse patient.[facility] the event this information is protected by the Federal Confidentiality of Alcohol and Drug Abuse Patient Records regulations: The Federal rules restrict any use of the information to criminally investigate or prosecute any alcohol or drug abuse patient.[facility] the event this information is protected by the Federal Confidentiality of Alcohol and Drug Abuse Patient Records regulations: The Federal rules restrict any use of the information to criminally investigate or prosecute any alcohol or drug abuse patient.[facility] the event this information is protected by the Federal Confidentiality of Alcohol and Drug Abuse Patient Records regulations: The Federal rules restrict any use of the information to criminally investigate or prosecute any alcohol or drug abuse patient.[facility] the event this information is protected by the Federal Confidentiality of Alcohol and Drug Abuse Patient Records regulations: The Federal rules restrict any use of the information to criminally investigate or prosecute any alcohol or drug abuse patient.[facility] the event this information is protected by the Federal Confidentiality of Alcohol and Drug Abuse Patient Records regulations: The Federal rules restrict any use of the information to criminally investigate or prosecute any alcohol or drug abuse patient.[facility] the event this information is protected by the Federal Confidentiality of Alcohol and Drug Abuse Patient Records regulations: The Federal rules restrict any use of the information to criminally investigate or prosecute any alcohol or drug abuse patient.[facility] Reason for Visit (unrecogniz ed section and content) Reason Onset Date Comments Refill Request 10/04/2021 Reason Onset Date Comments F/U 6 Month Immunizations 03/18/2022 Flu vaccination Reason Comments Results Reason Onset Date Comments Recheck 6 month follow u p Immunizations 03/19/2023 Flu vaccination Reason Onset Date Comments Refill Request 09/03/2023 Reason Comments Medicare Wellness Exam Annual Medicare W ellness Reason Onset Date Comments Refill Request 03/03/2024 Reason Comments Rash Rash on left side of face by mouth, left ear pain x 2 days Reason Comments Mouth/Lip Problem Blisters in and arou nd mouth x3 days, medication reaction Reason Comments Recheck 6 month follow up Reason Onset Date Comments Orders Immunizations 04/28/2024 Flu vaccination Reason Onset Date Comments Refill Request 08/28/2024 Reason Comments Medicare Wellness Exam Reason Onset Date Comments Refill Request 09/23/2024 Reason Onset Date Comments Refill Request 09/24/2024 Reason Onset Date Comments Refill Request 10/18/2024 Reason Onset Date Comments Refill Request 12/08/2024 Care Teams (unrecognized sec tion and content) Reflector Driller And Deburrer Relationship Specialty Start Date End Date Russ Barone MD [address] [place] [address] PCP - General Internal Medicine 11/01/14 Reflector Driller And Deburrer Relationship Specialty Start Date End Date Russ Barone MD [address] [place] [address] PCP - General Internal Medicine 11/01/14 Reflector Driller And Deburrer Relationship Specialty Start Date End Date Russ Barone MD [address] [place] [address] PCP - General Internal Medicine 11/01/14 Reflector Driller And Deburrer Relationship Specialty Start Date End Date Russ Barone MD [address] [facility] [place] [address] PCP - General Internal Medicine 11/01/14 Reflector Driller And Deburrer Relationship Specialty Start Date End Date Russ Barone MD [address] [facility] [place] [address] PCP - General Internal Medicine 11/01/14 Reflector Driller And Deburrer Relationship Specialty Start Date End Date Russ Barone MD [address] [facility] [place] [address] PCP - General Internal Medicine 11/01/14 Reflector Driller And Deburrer Relationship Specialty Start Date End Date Russ Barone MD [address] [facility] [place] [address] PCP - General Internal Medicine 11/01/14 Reflector Driller And Deburrer Relationship Specialty Start Date End Date Russ Barone MD [address] [facility] [place] [address] PCP - General Internal Medicine 11/01/14 Reflector Driller And Deburrer Relationship Specialty Start Date End Date Russ Barone MD [address] [facility] [place] [address] PCP - General Internal Medicine 11/01/14 Reflector Driller And Deburrer Relationship Specialty Start Date End Date Russ Barone MD [address] [facility] [place] [address] PCP - General Internal Medicine 11/01/14 Reflector Driller And Deburrer Relationship Specialty Start Date End Date Russ Barone MD [address] [facility] [place] [address] PCP - General Internal Medicine 11/01/14 Reflector Driller And Deburrer Relationship Specialty Start Date End Date Russ Barone MD [address] [facility] [place] [address] PCP - General Internal Medicine 11/01/14 Reflector Driller And Deburrer Relationship Specialty Start Date End Date Russ Barone MD [address] [facility] [place] [address] PCP - General Internal Medicine 11/01/14 Reflector Driller And Deburrer Relationship Specialty Start Date End Date Russ Barone MD [address] [place] [address] PCP - General Internal Medicine 11/01/14 Reflector Driller And Deburrer Relationship Specialty Start Date End Date Russ Barone MD [address] [place] [address] PCP - General Internal Medicine 11/01/14 Reflector Driller And Deburrer Relationship Specialty Start Date End Date Russ Barone MD [address] [place] [address] PCP - General Internal Medicine 11/01/14 Reflector Driller And Deburrer Relationship Specialty Start Date End Date Russ Barone MD [address] [place] [address] PCP - General Internal Medicine 11/01/14 Reflector Driller And Deburrer Relationship Specialty Start Date End Date Russ Barone MD [address] [place] [address] PCP - General Internal Medicine 11/01/14 Alea Dorantes PA-C [address] [place] [address] Test Examiner Family Medicine 06/13/24 Martha Funk APRN.CNP [address] [place] [address] Test Examiner Internal Medicine 06/13/24 Pamela Self PA-C [address] [place] [address] Test Examiner Family Medicine 06/13/24 Reflector Driller And Deburrer Relationship Specialty Start Date End Date Russ Barone MD [address] [place] [address] PCP - General Internal Medicine 11/01/14 Alea Dorantes PA-C [address] [place] [id number] Test Examiner Family Medicine 06/13/24 Martha Funk APRN.COLD WORK OPERATOR [address] [place] [address] Test Examiner Internal Medicine 06/13/24 Pamela Self PA-C [address] [place] [address] Test Examiner Family Medicine 06/13/24 Reflector Driller And Deburrer Relationship Specialty Start Date End Date Russ Barone MD [address] [place] [address] PCP - General Internal Medicine 11/01/14 Alea Dorantes PA-C [address] [place] [address] Test Examiner Family Medicine 06/13/24 Martha Funk APRN.COLD WORK OPERATOR [address] [place] [address] Test Examiner Internal Medicine 06/13/24 Pamela Self PA-C [address] [place] [address] Test Examiner Family Medicine 06/13/24 Reflector Driller And Deburrer Relationship Specialty Start Date End Date Russ Barone MD [address] [place] [address] PCP - General Internal Medicine 11/01/14 Martha Funk APRN.COLD WORK OPERATOR [address] [place], [place] [address] [facility] Internal [facility] 06/13/24 Reflector Driller And Deburrer Relationship Specialty Start Date End Date Russ Barone MD [address] [place], [place] [address] PCP - General Internal Medicine 11/01/14 Alea Dorantes PA-C [address] [place] [address] [facility] Family [facility] 06/13/24 09/26/24 Martha Funk APRN.COLD WORK OPERATOR [address] [place], [place] [id number] [facility] Internal [facility] 06/13/24 Pamela Self PA-C [address] [place], [place] [address] [facility] 06/13/24 09/26/24 INFORMATION SOURCE (unrecogn ized section and content) DATE CREATED AUTHOR 09/16/2024 [facility] FOR RECORDS PERTAINING TO PATIENTS WHO ARE OR HAVE BEEN ENROLLED IN A CHEMICAL DEPENDENCY/SUBSTANCEABUSE PROGRAM, SOME INFORMATION MAY BE OMITTED. This clinical summary was aggregated from multiple sources. Caution should be exercised in using it in the provision of clinical care. This summary normalizes information from multiple sources, and as a consequence, information in this document may materially change the coding, format and clinical context of patient data. In addition, data may be omitted in some cases. CLINICAL DECISIONS SHOULD BE BASED ON THE PRIMARY CLINICAL RECORDS. e|tab [facility]. provides no warranty or guarantee of the accuracy or completeness of information in this document."
[2025-02-10 18:34] LABS: Differential Indicated SCAN CRITERIA MET
[2025-02-10 18:35] LABS: Anion Gap 15 (5-15); BUN 29 mg/dL (4-19); BUN/Creat Ratio 24.1 RATIO (10-20); Calcium,Total 9.2 mg/dL (7.6-11.0); Carbon Dioxide 24.7 mmol/L (21.0-32.0); Chloride 96 mmol/L (98-108); Estimated Creatinine Clearance 23.62 ml/min (50-250); Glucose 113 mg/dL (70-99); Potassium 3.3 mmol/L (3.3-5.1)
[2025-02-10 18:37] VITALS: BP 140/59; PULSE 80; RESP 18; O2SAT 95
[2025-02-10 19:47] LABS: Mucous, Urine 0 SEEN /hpf (<or=2+)
[2025-02-10 20:03] LABS: Color, Urine Yellow (Yellow); Glucose, Dipstick Normal (Normal); Ketone-Dipstick Negative (Negative); Leukocyte Esterase-Dipstick Negative /ul (Negative); Nitrite-Dipstick Negative (Negative); Occult Blood-Urine 150 /ul (Negative); Protein-Dipstick 30 mg/dl (Negative); Specific Gravity, Urine 1.010 (1.002-1.030); Urine Bilirubin Dipstick Negative (Negative)
[2025-02-10 20:35] LABS: Differential Comment SCANNED
[2025-02-10 22:24] LABS: Red Blood Cells-Urine 0-5 SEEN /hpf (0-5); Squamous Epithelial Cells - UA 0-5 SEEN /hpf (5-10)
[2025-02-10 22:25] LABS: Transitional Epithelial - Ur 0-5 SEEN /hpf (0-5)
== END 2025-02-10 20:08 | disposition home or self-care (01) ==
PROVIDERS: Physician Assistant; Emergency Provider Surgery; PCP Internal Medicine; Referring Provider Surgery; Visit Provider Surgery
DX: D72.829 Elevated white blood cell count, unspecified (principal)
CPT/HCPCS: 74177; 80048; 81001; 83605; 85025; 96360; 96361; 99284; Q9967; A4216

== ENCOUNTER 2025-02-14 10:02 | Emergency (ER) | payer MEDICARE, SELFPAY ==
[2025-02-14 10:02] VITALS: BP 119/63; PULSE 61; RESP 12; TEMP 35.7; O2SAT 98; BMI 18.4
--- NOTE | 2025-02-14 10:14 | ED.RN ---
Patient states she was diagnosed with colitis last week and started on 2 antibiotics. States she was vomiting after taking antibiotics and stopped taking antibiotics on friday due to vomiting. Still having diarrhea.
[2025-02-14 10:43] LABS: Hematocrit 40.2 % (37-47); Hemoglobin 13.3 g/dL (12.0-15.0); Immature Granulocytes Count 0.180 X10^3/uL (0.0-0.0); Mean Corp Hgb Conc 33.1 g/dL (32-36); Mean Corpuscular Volume 96.6 fL (81-99); Mean Platelet Vol. 7.7 fl (6.2-12.0); NRBC Flagged by Analyzer 0 % (0-5); Platelet Count 701 K/mm3 (150-450); RBC Distribution Width CV 13.9 % (11.6-14.6); RBC Distribution Width SD 49.2 fl (35.1-43.9); Red Blood Count 4.16 M/mm3 (4.2-5.4); White Blood Count 20.0 K/mm3 (4.4-11.0)
[2025-02-14 11:19] LABS: Anion Gap 21 (5-15); BUN 32 mg/dL (4-19); BUN/Creat Ratio 29.8 RATIO (10-20); Calcium,Total 9.5 mg/dL (7.6-11.0); Carbon Dioxide 20.7 mmol/L (21.0-32.0); Chloride 98 mmol/L (98-108); Estimated Creatinine Clearance 25.26 ml/min (50-250); Glucose 153 mg/dL (70-99); Potassium 3.4 mmol/L (3.3-5.1)
[2025-02-14] MEDS: 0.9% Normal Saline (1000mL) 1,000 ML 1000 ML IV (11:50)
[2025-02-14 12:02] VITALS: BP 130/48; PULSE 66; RESP 18; O2SAT 97
[2025-02-14 12:15] VITALS: BP 127/49; BP 130/48; BP 134/39; PULSE 71; PULSE 72; PULSE 74
[2025-02-14 12:20] VITALS: BP 130/48; PULSE 72; RESP 16; O2SAT 100
[2025-02-14 14:00] VITALS: BP 135/48; PULSE 74; RESP 17; O2SAT 98
--- NOTE | 2025-02-14 14:54 | EX.ED.DYSGE1 ---
HPI History of Present Illness Chief Complaint: Weakness Detail of Chief Complaint: Abdominal pain, weakness, thirst Informant: patient and family (Son) Onset/Context/Timing Onset: Days Context: Sudden Onset Timing: Intermittent and Waxes and wanes Quality: Diarrhea and nausea without vomiting Location: GI Current Severity: Gone Maximum Severity: Moderate Worsened by: Proctitis Relieved by: Got better after prescribed levofloxacin and metronidazole Associated Symptoms Associated Symptoms: Thirst, abdominal discomfort, generalized weakness Narrative Narrative: Patient is a 84-year-old woman. She states she had diarrhea that started 2 weeks prior to her visit dated February 10. Patient's workup at that time was remarkable for an elevated white count of 19,000 with slight shift. Electrolyte panel is remarkable for BUN/creatinine of 29 and 1.2. Her BUN to creatinine ratio was 24:1. CT reveals diffusely thickened rectosigmoid colon with adjacent inflammatory changes. Patient presents because of poor appetite, thirst, nausea. She had a bowel movement this morning which was soft to mushy. It was not liquid. There is no blood or mucus. Patient has not taken any levofloxacin or metronidazole since Friday morning. She was told she does not have allergic reaction these meds that it is most likely adverse reaction side effect to the levofloxacin. She has not used anything that is contained alcohol including mouthwash. Patient denies dysuria, frequency, urgency or hematuria. Patient does endorse orthostatic symptoms as well as the dry mouth and thirst. Prior similar symptoms: Yes Recent Illness/Hospitalization: No PFSH PFSH Medical History Osteoarthritis Hyperglycemia Hypertension Hypothyroidism High blood cholesterol Colitis Home Medications ?Medication ?Instructions ?Recorded ?Last Taken ?Type levofloxacin 750 mg tablet 750 mg PO DAILY 7 days #7 tabs 02/10/25 02/12/25 Rx metronidazole 500 mg tablet 500 mg PO BID 7 days #14 tabs 02/10/25 02/12/25 Rx aspirin 81 mg tablet 81 mg PO DAILY 02/14/25 02/14/25 History atenolol 50 mg tablet 50 mg PO DAILY 02/14/25 02/14/25 History hydrochlorothiazide 12.5 mg capsule 12.5 mg PO DAILY 02/14/25 02/14/25 History levothyroxine 100 mcg tablet 100 mcg PO DAILY 02/14/25 02/14/25 History losartan 25 mg tablet 25 mg PO DAILY 02/14/25 02/14/25 History meloxicam 15 mg tablet 15 mg PO DAILY pain 02/14/25 02/14/25 History ondansetron 4 mg disintegrating 4 mg PO Q8H PRN PRN Nausea #10 tabs 02/14/25 Unknown Rx tablet simvastatin 10 mg tablet 10 mg PO QHS 02/14/25 02/13/25 History Allergy/AdvReac Type Severity Reaction Status Date / Time amoxicillin Allergy Intermediate Hives Verified 02/10/25 16:40 levofloxacin AdvReac Abd Verified 02/14/25 10:04 cramps/diarrhea metronidazole (From Flagyl) AdvReac Abd Verified 02/14/25 10:04 cramps/diarrhea Family History no significant family his Surgical History no surgical history Social History (Updated 02/14/25 @ 14:[address] Suhail Delacruz MD) household members: none Smoking Status: Never smoker ROS ROS ED Constitutional Constitutional ED: Reports weight loss and other Details: 8 pounds past 3 weeks ; Denies chills, fever(s), subjective or sweats Eyes Eyes: Denies blurry vision or change in vision ENT ENT ED: Denies ear pain, rhinorrhea or sore throat Cardiovascular Cardiovascular: Denies chest pain or palpitations Respiratory/Chest Respiratory/Chest: Denies cough, dyspnea or dyspnea on exertion Gastrointestinal Gastrointestinal: Reports abdominal pain and nausea; Denies constipation, diarrhea, melena or vomiting Genitourinary Genitourinary ED: Denies dysuria, hematuria or urinary frequency Musculoskeletal Musculoskeletal: Denies arthralgias or myalgias Integumentary Denies rash Neurologic Neurologic: Reports weakness Psychiatric Psychiatric: Denies anxiety or depression Endocrine Endocrinology: Denies cold intolerance or heat intolerance Hematologic/Lymphatic Hematologic/Lymphatic: Reports systems reviewed and no addt'l complaints, except as documented EXAM Physical Exam Const Vital Signs: 02/14/25 10:02 02/14/25 10:19 02/14/25 12:02 Temperature 96.3 F L Temperature Source Temporal Pulse Rate 61 66 Pulse Rate [Lying] Pulse Rate [Sitting (for 1 minute prior to obtaining)] Pulse Rate [Standing (for 1 minute prior to obtaining)] Respiratory Rate 12 18 Respiratory Pattern Normal Blood Pressure 119/63 130/48 H Blood Pressure [Lying] Blood Pressure [Sitting (for 1 minute prior to obtaining)] Blood Pressure [Standing (for 1 minute prior to obtaining)] Blood Pressure Mean 81 75 Blood Pressure Mean [Lying] Blood Pressure Mean [Sitting (for 1 minute prior to obtaining)] Blood Pressure Mean [Standing (for 1 minute prior to obtaining)] Pulse Ox 98 97 Oxygen Delivery Method Room Air Room Air 02/14/25 12:15 02/14/25 12:20 02/14/25 14:00 Temperature Temperature Source Pulse Rate 72 74 Pulse Rate [Lying] 71 Pulse Rate [Sitting (for 1 minute prior to obtaining)] 74 Pulse Rate [Standing (for 1 minute prior to obtaining)] 72 Respiratory Rate 16 17 Respiratory Pattern Blood Pressure 130/48 H 135/48 H Blood Pressure [Lying] 127/49 H Blood Pressure [Sitting (for 1 minute prior to obtaining)] 134/39 H Blood Pressure [Standing (for 1 minute prior to obtaining)] 130/48 H Blood Pressure Mean 75 77 Blood Pressure Mean [Lying] 75 Blood Pressure Mean [Sitting (for 1 minute prior to obtaining)] 70 Blood Pressure Mean [Standing (for 1 minute prior to obtaining)] 75 Pulse Ox 100 98 Oxygen Delivery Method Room Air Room Air Positive well nourished and well developed Constitutional Narrative: Patient is no distress. Orthostatic vital signs normal. Vital signs were noted. General Appearance ED: well developed; Negative for pallor HEENT Reports dry mucous membranes HEENT Narrative: Head is atraumatic no cephalic. Ears normal. Nares patent. Posterior pharynx is normal. Mouth ED: Yes dry mucous membranes Mouth: dry mucous membranes Eyes PERRL and EOMs intact bilaterally General Eye ED: Negative for pale conjunctiva or scleral icterus Chest Wall inspection of chest normal and palpation of chest normal Resp normal respiratory effort and clear to auscultation bilaterally Cardio regular rate, regular rhythm, S1 normal heart sound, S2 normal heart sound and no murmurs GI non-tender and no masses; Negative for non-distended or hepatosplenomegaly GI Narrative: Bowel sounds are slightly diminished. She is tympanitic to percussion. Palpation: soft Back/Spine Back/Spine Narrative: Inspection of the back is normal. Extremity normal to inspection General Extremety ED: Negative for edema or tenderness General Extremity: Negative for edema Neuro oriented x3, CN's II-XII intact bilaterally and no sensory deficits noted Sensorium / Orientation: alert Motor Exam: strength 5/5 throughout Psych mental status grossly normal Skin no rashes or lesions noted, no wounds and No skin turgor normal General Skin Exam: Negative for elasticity normal, jaundice or pallor MDM MDM MDM Narrative Medical decision making narrative: Prior workup was reviewed. Will obtain BMP to assess BUN to creatinine ratio as well as renal function and electrolytes and specifically evaluate for hypokalemia. CBC to assess white count since it was elevated. Patient received 1 L of normal saline wide open. Patient was informed of her results. She did pass p.o. challenge which was a full diet. She has eaten more than she has in days. Patient and family are happy with this. Her white count is still elevated. This is nonspecific. Since she is no longer having diarrhea she was not instructed to resume the antibiotics. She was told that she is dehydrated and needs to drink more fluids. Lab Data Attestation: I reviewed the patient's lab results. Lab results narrative: White count is elevated 20,000 with mild shift. There is no bandemia. H&H and indices are normal. BUN and creatinine are 32 and 1.08 with a BUN to creatinine ratio approximately 30-1. Estimated GFR is 50. This is an improvement from laboratory results obtained February 10. Patient did urinate after fluid bolus. She does feel better. She is now smiling. Labs: Laboratory Results - last 24 hr 02/14/25 10:30 WBC 20.0 H RBC 4.16 L Hgb 13.3 Hct 40.2 MCV 96.6 MCH 32.0 MCHC 33.1 RDW Std Deviation 49.2 H RDW Coeff of Anay 13.9 Plt Count 701 H MPV 7.7 Immature Gran % (Auto) 0.900 Neut % (Auto) 86.0 H Lymph % (Auto) 5.3 L [place] % (Auto) 7.3 Eos % (Auto) 0.1 Baso % (Auto) 0.4 Absolute Neuts (auto) 17.2 H Absolute Lymphs (auto) 1.05 Nucleated RBC % 0 Sodium 140 Potassium 3.4 Chloride 98 Carbon Dioxide 20.7 L Anion Gap 21 H BUN 32 H Creatinine 1.08 Estim Creat Clear Calc 25.26 L Est GFR (MDRD) Non-Af 50 L BUN/Creatinine Ratio 29.8 H Glucose 153 H Calcium 9.5 Discharge Plan Triage Chief Complaint: Weakness ED Provider: Suhail Delacruz Dx/Rx/DC Orders Clinical Impression: Prerenal azotemia, Leukocytosis, Elevated blood pressure reading with diagnosis of hypertension Instructions: ED Dehydration (Adult) Prescriptions: New ondansetron 4 mg tablet,disintegrating 4 mg PO Q8H PRN PRN (Reason: Nausea) Qty: 10 0RF No Action metronidazole 500 mg tablet 500 mg PO BID 7 Days Qty: 14 0RF Patient Comments: pt states hasn't taken because made her sick to her stomach levofloxacin 750 mg tablet 750 mg PO DAILY 7 Days Qty: 7 0RF Patient Comments: pt states hasn't taken because made her sick to her stomach meloxicam 15 mg tablet 15 mg PO DAILY simvastatin 10 mg tablet 10 mg PO QHS levothyroxine 100 mcg tablet 100 mcg PO DAILY losartan 25 mg tablet 25 mg PO DAILY hydrochlorothiazide 12.5 mg capsule 12.5 mg PO DAILY atenolol 50 mg tablet 50 mg PO DAILY aspirin 81 mg tablet 81 mg PO DAILY Primary Care Provider: Jesusita Kamara Referrals: Jesusita Kamara MD [Primary Care Provider] - 3-5 Days Print Language: Chinese Disposition Disposition: Home, Self Care
[2025-02-14 14:56] VITALS: BP 135/48; PULSE 74; RESP 17; TEMP 35.7; O2SAT 98
--- OUTSIDE RECORDS SUMMARY | 2025-02-14 18:43 | XMS RPT_ITS | CCD ---
Author Organization [facility] CliniSysd Care Team Providers Care Cement Sack Breaker Name Role Phone Russ Barone MD Primary Care Provider Russ Barone MD Primary Care Provider Jayna PASamra, Alea L Unavailable Older RISK MANAGEMENT DIRECTOR.EQUIPMENT MONITOR PHOTOTYPESETTING, Martha Unavailable Aramis CAGE Pamela Unavailable Dendominique CAGE, Alea L Unavailable Aramis CAGE Pamela Unavailable Dr. Russ Barone MD Primary Care Provider Dr. Galdino Pittman DO Referring Provider Dr. Galdino Pittman DO Emergency Provider OLDER, MARTHA Referring Unavailable GANTA, RUSS Primary Care Unavailable GANTA, RUSS Primary Care Unavailable GANTA, RUSS Primary Care Unavailable GANTA, RUSS Primary Care Unavailable OLDER, MARTHA Referring Unavailable GANTA, RUSS Primary Care Unavailable GANTA, RUSS Attending Unavailable OLDER, MARTHA Referring Unavailable GANTA, RUSS Primary Care Unavailable GANTA, RUSS Primary Care Unavailable OLDER, MARTHA Attending Unavailable GANTA, RUSS Primary Care Unavailable GANTA, RUSS Primary Care Unavailable OLDER, MARTHA Attending Unavailable GANTA, RUSS Primary Care Unavailable Travis-Galdino Pete Referring Unavailabl e Travis-Galdino Pete Attending Unavailabl e Ganta, Russ Primary Care Unavailable Jayme JAVIER, Dr. Jang Emergency Provider Allergies Allergy Classification Reported Allergen(s) Allergy Type Date of Onset Reaction(s) Facility (20 sources) Alendronate; Translations: [ALENDRONATE SODIUM] Drug Allergy 7 Intolerance [facility] Work Phone: (20 sources) Amoxicillin / Clavulanate; Translations: [AMOXICILLIN-POT CLAVULANATE] Drug Allergy 8 Rash, Diarrhea, Swelling, Other: See Comments [facility] Work Phone: (20 sources) Grass pollen; Translations: [GRASS POLLEN] Propensity to adverse reactions 5 [facility] Work Phone: (11 sources) leaves [Other] Propensity to adverse reactions 5 [facility] Work Phone: (11 sources) weeds [Other] Propensity to adverse reactions 5 [facility] Work Phone: (13 sources) valACYclovir; Translations: [VALACYCLOVIR] Drug Allergy 4 GI Upset [facility] (2 sources) Amoxicillin Drug Allergy 5 Hives [facility] (1 source) Amoxicillin Drug Allergy 5 [facility] (1 source) levoFLOXacin Drug Allergy 5 Abd cramps/diarrhe a [facility] (1 source) metroNIDAZOLE Drug Allergy 5 Abd cramps/diarrhe a [facility] Medications Current Medications Medication Drug Class(es) Dates Sig (Normalized) Sig (Original) aspirin 81 mg oral tablet (20 sources) Platelet Aggregation Inhibitor, Nonsteroidal Anti-inflammatory Drug Start: 02-14-2025 take 1 tablet by mouth once daily Aspirin 81 mg tablet Active 81 mg PO DAILY February 14, 2025 12:00am Start: 04-01-2005 take 1 tablet by dinora th once daily ASPIRIN 81 MG ORAL TAB Take one(1) tablet daily. 0 04/01/2005 Active Comment on above: Take one(1) tablet d aily. atenolol 50 mg oral tablet (20 sources) beta-Adrenergic Joao Start: 02-14-2025 take 1 tablet by mouth once daily Atenolol 50 mg tablet Active 50 mg PO DAILY February 14, 2025 12:00am Start: 10-19-2020 End: 03-21-2025 take 1 tablet by mouth once daily atenolol (TENORMIN) 50 mg tablet Indications: Essential hypertension, benign Take 1 tablet by mouth once daily. 90 tablet 3 09/24/2024 Active Comment on above: Take 1 tablet by dinora once daily. cetirizine hydrochloride 10 mg oral capsule (20 sources) Histamine-1 Receptor Antagonist Start: 2010 Cetirizine (ZYRTEC) 10 mg ORAL Cap Take by mouth. Take by mouth 30 capsule 0 09/27/2010 Active Comment on above: Take by mouth. Take by mouth hydroCHLOROthiazide 12.5 mg oral capsule (20 sources) Thiazide Diuretic Start: 2024 take 1 capsule by mouth once daily Hydrochlorothiazide 12.5 mg capsule Active 12.5 mg PO DAILY February 14, 2025 12:00am Start: 10-19-2020 End: 09-23-2024 take 1 capsule by mouth once daily hydroCHLOROthiazide 12.5 mg capsule Indications: Essential hypertension, benign Take 1 capsule by mouth once daily. 90 capsule 3 09/23/2024 Active Comment on above: Take 1 capsule by mo [facility] once daily. levoFLOXacin 750 mg oral tablet (2 sources) Quinolone Antimicrobial Start: 02-11-20 take 1 tablet by mouth once daily Levofloxacin 750 mg tablet Active 750 mg PO DAILY 7 7 0 February 10, 2025 12:00am levothyroxine sodium 0.1 mg oral tablet (20 sources) l-Thyroxine Start: 02-15-20 take 1 tablet by mouth once daily Levothyroxine 100 mcg tablet Active 100 ug PO DAILY February 14, 2025 12:00am Start: 10-20-2024 take 1 tablet by dinora once daily levothyroxine (LEVOXYL) 100 mcg tablet [...] on above: Take 1 tablet by dinora once daily. On all days of the week except on Friday take half tablet Take 1 tablet by dinora th once daily. losartan potassium 25 mg oral tablet (20 sources) Angiotensin 2 Receptor Joao Start: 02-14-2025 take 1 tablet by mouth once daily Losartan 25 mg tablet Active 25 mg PO DAILY February 14, 2025 12:00am Start: 09-01-2024 take 1 tablet by dinora th once [...] on above: Take 1 tablet by dinora once daily. meloxicam 15 mg oral tablet (7 sources) Nonsteroidal Anti-inflammatory Drug Start: End: take 1 tablet by mouth once daily Meloxicam 15 mg tablet Active 15 mg PO DAILY February 14, 2025 12:00am pain metroNIDAZOLE 500 mg oral tablet (2 sources) Nitroimidazole Antimicrobial Start: take 1 tablet by mouth twice daily Metronidazole 500 mg tablet Active 500 mg PO TWICE A DAY 14 7 0 February 10, 2025 12:00am ofloxacin 3 mg/ml otic solution (2 sources) Quinolone Antimicrobial Start: End: ofloxacin (FLOXIN) 0.3 % otic solution Use 5 Drops in the left ear two times a day for 7 days. 4 mL 03/05/2024 03/12/2024 Active ondansetron 4 mg disintegrating oral tablet (1 source) Serotonin-3 Receptor Antagonist Start: take 1 tablet by mouth every eight hours as needed for nausea Ondansetron 4 mg tablet,disintegratin g Active 4 mg PO EVERY 8 HOURS NEEDED as needed for Nausea 10 0 February 14, 2025 12:00am predniSONE 20 mg oral tablet (3 sources) Start: End: take 2 tablets by mouth once daily predniSONE (DELTASONE) 20 mg tablet Indications: Hives Take 2 tablets by mouth once daily for 5 days. 10 tablet 03/03/2024 03/08/2024 Active simvastatin 10 mg oral tablet (20 sources) HMG-CoA Reductase Inhibitor Start: take 1 tablet by mouth at bedtime Simvastatin 10 mg tablet Active 10 mg PO AT BEDTIME February 14, 2025 12:00am Start: 11-24-2024 take 1 tablet by dinora th once [...] Active Problems Problem Classification Problem Date Documented Da te Episodic/Chronic Allergic reactions (1 source) Urticaria; Translations: [Urticaria, unspecified] 03-03-2024 Episodic Diabetes mellitus without complication (6 sources) Hyperglycemia; Translations: [Hyperglycemia, unspecified] Episodic Diseases of mouth; excluding dental (1 source) Oral lesion; Translations: [Unspecified lesions of oral mucosa] 03-05-2024 Episodic Diseases of white blood cells (2 sources) Leukocytosis; Translations: [Elevated white blood cell count, unspecified] 02-10-2025 Chronic Disorders of lipid metabolism (20 sources) Hyperlipidemia; [...] Translations: [Dysthymic disorder] Onset: 04-01-2005 11-01-2014 Chronic Noninfectious gastroenteritis (2 sources) Proctocolitis; Translations: [Noninfective gastroenteritis and colitis, unspecified] 02-10-2025 Episodic Nonmalignant breast conditions (20 sources) Fibrocystic disease of breast; Translations: [Diffuse cystic mastopathy of unspecified breast] Onset: 2011 2011 Chronic Osteoarthritis (2 sources) Arthritis of first carpometacarpal joint of right hand; Translations: [Unilateral primary osteoarthritis of first carpometacarpal joint, right hand] 09-14-2024 Chronic Other ear and sense organ disorders (1 source) Otalgia, left ear; Translations: [Otalgia, unspecified] 03-05-2024 Episodic Other gastrointestinal disorders (1 source) Diarrhea, unspecified; Translations: [Diarrhea, unspecified type] Onset: 02-09-2025 Episodic Other hematologic conditions (1 source) MCV - raised; Translations: [Other abnormality of red blood cells] Episodic Other nutritional; endocrine; and metabolic disorders (1 source) Abnormal weight loss; Translations: [Weight loss] Onset: 02-09-2025 Episodic Other screening for suspected conditions (not mental disorders or infectious disease) (20 sources) Patient encounter status; Translations: [Encounter for screening for malignant neoplasm of colon] Onset: 03-15-2011 03-15-2011 Episodic Other upper respiratory disease (20 sources) [...] of breast] Onset: 2 07-22-2011 Episodic Other and unspecified benign neoplasm (20 sources) Benign neoplasm of rectum and anal canal; Translations: [Benign neoplasm of rectum] Onset: 1 03-15-2011 Episodic Other bone disease and musculoskeletal deformities (20 sources) Disorder of skeletal system; Translations: [Disorder of bone, unspecified] Onset: 5 04-01-2005 Episodic Results Test Name Value Interpretation Reference Range Facility Absolute lymphocyte countOrd ered By: Suhail Delacruz on 02-14-2025 Lymphocytes Auto (Unsp spec) [#/Vol] 1.05 10*3/uL 0.83-4.51 [facility] Absolute neutrophil countOrd ered By: Suhail Delacruz on 02-14-2025 Neutrophils (Bld) [#/Vol] 17.2 10*3/uL High 2.0-7.7 [facility] Anion gap in Serum or Plasma Ordered By: Suhail Delacruz on 02-14-2025 Anion gap [Moles/Vol] 21 mmol/L High 5-[address] [facility] Automated lymphocyte count a s percentage of total leukocytesOrdered By: Suhail Delacruz on 02-14-2025 Lymphocytes/100 WBC Auto (Unsp spec) 5.3 % Low 19-41 [facility] BUN/creatinine ratioOrdered By: Suhail Delacruz on 02-14-2025 Urea nitrogen/Creatinine [Mass ratio] 29.8 mg/mg High 10-20 [facility] Basophil percentageOrdered B y: Suhail Delacruz on 02-14-2025 Basophils/100 WBC (Bld) 0.4 % 0-1 [facility] Carbon dioxide, total [Moles /volume] in Central venous bloodOrdered By: Suhail Delacruz on 02-14-2025 CO2 [Moles/Vol] 20.7 mmol/L Low 21.0-32.0 [facility] Chloride assayOrdered By: patsy Delacruz on 02-14-2025 Chloride [Moles/Vol] 98 mmol/L 98-108 [facility] Eosinophil percentageOrdered By: Suhailpatsy Priesto on 02-14-2025 Eosinophils/100 WBC (Bld) 0.1 % 0-5 [facility] Erythrocyte distribution wid th ratioOrdered By: Suhail Delacruz on 02-14-2025 Erythrocyte distribution width (RBC) [Ratio] 13.9 % 11.6-14.6 [facility] Erythrocyte distribution wid th standard deviationOrdered By: Suhail Delacruz on 02-14-2025 Erythrocyte distribution width (RBC) [Ratio] 49.2 fl High 35.1-43.9 [facility] Glomerular filtration rate ( GFR) estimation/1.73 sq m using serum, plasma, or whole bOrdered By: Suhail Delacruz on 02-14-2025 GFR/1.73 sq M.predicted among non-blacks MDRD (S/P/Bld) [Vol rate/Area] 50 mL/min/{1.73_m2} Low >60 [facility] Comment on above: mL/min/1.73m2 CKD-EP I Creatinine Equation (2020) Hematocrit Auto (Bld) [Volum e fraction]Ordered By: Suhail Delacruz on 02-14-2025 Hematocrit (Bld) [Volume fraction] 40.2 % 37-47 [facility] Hemoglobin measurementOrdere d By: Suhail Delacruz on 02-14-2025 Hemoglobin (Bld) [Mass/Vol] 13.3 g/dL 12.0-15.0 [facility] Immature granulocytes/100 WB C Auto (Bld)Ordered By: Suhail Delacruz on 02-14-2025 Immature granulocytes/100 WBC (Bld) 0.900 % 0.0-0.9 [facility] Comment on above: IG% - Immature Granu locytes (promyelocytes, myelocytes and metamyelocytes) > 1% indicates that a LEFT SHIFT is Present. MCV (mean corpuscular volume ) determinationOrdered By: Suhail Delacruz on 02-14-2025 MCV (RBC) [Entitic vol] 96.6 fL 81-99 [facility] Mean corpuscular hemoglobin (MCH) determinationOrdered By: Suhail Delacruz on 02-14-2025 MCH (RBC) [Entitic mass] 32.0 pg 27.0-32.0 [facility] Mean corpuscular hemoglobin concentration (MCHC) determinationOrdered By: Suhail Delacruz on 02-14-2025 MCHC (RBC) [Mass/Vol] 33.1 g/dL 32-[address] [facility] Mean platelet volume determi nationOrdered By: Suhail Delacruz on 02-14-2025 Platelet mean volume (Bld) [Entitic vol] 7.7 fL 6.2-12.0 [facility] Monocyte percentageOrdered B y: Suhail Delacruz on 02-14-2025 Monocytes/100 WBC (Bld) 7.3 % 0-10 [facility] Neutrophil percentageOrdered By: Suhailpatsy Delacruz on 02-14-2025 Neutrophils/100 WBC (Bld) 86.0 % High 47-70 [facility] Nucleated red blood cell per centageOrdered By: Suhail Delacruz on 02-14-2025 Nucleated RBC/100 WBC (Bld) [Ratio] 0 % 0-5 [facility] Platelet countOrdered By: Gato Delacruz on 02-14-2025 Platelets (Bld) [#/Vol] 701 10*3/uL High 150-450 [facility] Potassium measurement (mass/ volume)Ordered By: Suhail Delacruz on 02-14-2025 Potassium (Unsp spec) [Mass/Vol] 3.4 mmol/L 3.3-5.1 [facility] RBC Auto (Bld) [#/Vol]Ordere d By: Suhail Delacruz on 02-14-2025 RBC (Bld) [#/Vol] 4.16 10*6/uL Low 4.2-5.4 [facility] Serum creatinine measurement (mass/volume)Ordered By: Suhail Delacruz on 02-14-2025 Creatinine [Mass/Vol] 1.08 mg/dL 0.70-1.[address] [facility] Serum glucose measurement (m ass/volume)Ordered By: Suhailpatsy Delacruz on 02-14-2025 Glucose [Mass/Vol] 153 mg/dL High 70-99 [facility] Serum or plasma calcium jaki urement (mass/volume)Ordered By: Suhail Delacruz on 02-14-2025 Calcium [Mass/Vol] 9.5 mg/dL 7.6-11.0 [facility] Serum or plasma urea nitroge n measurement (mass/volume)Ordered By: Suhail Delacruz on 02-14-2025 Urea nitrogen [Mass/Vol] 32 mg/dL High 4-19 [facility] Sodium levelOrdered By: Suhail Delacruz on 02-14-2025 Sodium [Moles/Vol] 140 mmol/L 133-145 [facility] White blood cell (WBC) count Ordered By: Suhail Delacruz on 02-14-2025 WBC (Bld) [#/Vol] 20.0 10*3/uL High 4.4-11.0 [facility] Abdomen/Pelvis W IV Cont ONL Yon 02-10-2025 Abdomen/Pelvis W IV Cont ONLY [facility] Imaging Services [address] [place] [address] Abdomen/Pelvis W IV Cont ONLY MR#: [id number] Acct: [id number] Name: PATY RIOS Rep #: [id number] : 1940 F 84 From: Erna Rubio MD PCP: Dr. Russ Barone MD Status: REG ER Study: Abdomen/Pelvis W IV Cont ONLY Date of Exam: Exam# [id number] Ordering Dr: Elvira Campbell PROCEDURE: ABDOMEN/PELVIS W IV CONT ONLY 02/10/2025 REASON FOR EXAM: DIARRHEA. TECHNIQUE: ABDOMEN/PELVIS W IV CONT ONLY Coronal and Sagittal reconstruction series were provided. CONTRAST: Isovue 370 VOLUME: 70 mL One or more dose reduction techniques were used (e.g., Automated exposure control, adjustment of the mA and/or kV according to patient size, use of iterative reconstruction technique. RADIATION DOSE SUMMARY: CTDlvol: 6.65, 5.92 mGy DLP: 275.42 mGycm COMPARISON: None. FINDINGS: LUNG BASES: No basilar airspace consolidation or pleural effusion. Minimal dependent atelectasis bilaterally. Coronary artery calcification. LIVER: Ill-defined hypodensity measuring 1.3 cm in segment 4B along the falciform ligament, possibly focal hepatic steatosis. GALLBLADDER: The gallbladder is completely contracted, limiting its evaluation. BILE DUCTS: Prominent intrahepatic and extrahepatic bile ducts, mildly dilated for patient's age. The CBD measures up to 9.7 mm with rapid tapering at the level of the ampulla. No obstructing lesion seen. PANCREAS: Unremarkable. SPLEEN: Unremarkable. ADRENAL GLANDS: Unremarkable. KIDNEYS: The kidneys enhance symmetrically. Hypodense 3.6 mm right renal lesion, likely a cyst. No hydronephrosis or hydroureter. STOMACH AND BOWEL: Small hiatal hernia. Diffuse wall thickening of the sigmoid colon and rectum with adjacent fat stranding. No obstruction or perforation. Moderate colonic stool. 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 APPENDIX: Normal-appearing appendix. No CT evidence for appendicitis. RETRO/PERITONEUM: No free fluid. No free air. LYMPH NODES: Multiple small left periaortic lymph nodes. PELVIC ORGANS: Unremarkable urinary bladder and uterus. The ovaries are not well seen. VASCULATURE: No aortic aneurysm. Scattered calcified atherosclerosis. ABDOMINAL WALL AND SOFT TISSUES: Tiny fat containing umbilical hernia. BONES: No fracture or suspicious osseous abnormality. Degenerative changes of the spine and both hips. Mild/moderate lumbar levoscoliosis. CT/Abdomen/Pelvis W IV Cont ONLY IMPRESSION: 1. Diffusely thickened rectosigmoid colon with adjacent inflammatory changes, query acute proctocolitis. 2. Mildly dilated bile ducts. No obstructing lesion seen. A biliary stricture at the level of the ampulla is possible. Reading Location: [facility] CC: Dr. Russ Barone MD; ARIANA Leiva Head Turbine Operator: Signed Normal [facility] Absolute lymphocyte countOrd ered By: Elvira Campbell on 02-10-2025 Lymphocytes Auto (Unsp spec) [#/Vol] 1.16 10*3/uL 0.83-4.51 [facility] Absolute neutrophil countOrd ered By: Elvira Campbell on 02-10-2025 Neutrophils (Bld) [#/Vol] 15.6 10*3/uL High 2.0-7.7 [facility] Anion gap in Serum or Plasma Ordered By: Elvira Campbell on 02-10-2025 Anion gap [Moles/Vol] 15 mmol/L 5-[address] [facility] Automated lymphocyte count a s percentage of total leukocytesOrdered By: Elvira Campbell on 02-10-2025 Lymphocytes/100 WBC Auto (Unsp spec) 6.1 % Low 19-41 [facility] BUN/creatinine ratioOrdered By: Elvira Campbell on 02-10-2025 Urea nitrogen/Creatinine [Mass ratio] 24.1 mg/mg High 10-20 [facility] Basic Metabolic Profile (BMP )on 02-10-2025 BUN/CRE 24.1 RATIO High 10-20 [facility] Comment on above: Performed By: #### L 100.0100, L500.2500, [id number] #### [facility] [address] [place], [address] Calcium [Mass/Vol] 9.2 mg/dL Normal 7.6-11.0 [facility] Comment on above: Performed By: #### L 100.0100, L500.2500, [id number] #### [facility] [address] [place], [address] Chloride [Moles/Vol] 96 mmol/L Low 98-108 [facility] Comment on above: Performed By: #### L 100.0100, L500.2500, [id number] #### [facility] [address] [place], [address] CO2 [Moles/Vol] 24.7 mmol/L Normal 21.0-32.0 [facility] Comment on above: Performed By: #### L 100.0100, L500.2500, [id number] #### [facility] [address] [place], [address] Creatinine [Mass/Vol] 1.20 mg/dL Normal 0.70-1.[address] [facility] Comment on above: Performed By: #### L 100.0100, L500.2500, [id number] #### [facility] [address] [place], [address] ECRCL 23.62 ml/min Low 50-250 [facility] Comment on above: Performed By: #### L 100.0100, L500.2500, [id number] #### [facility] [address] [place], [address] GAP 15 Normal 5-15 [facility] Comment on above: Performed By: #### L 100.0100, L500.2500, [id number] #### [facility] [address] [place], [address] GFR/1.73 sq M.predicted among non-blacks MDRD (S/P/Bld) [Vol rate/Area] 44 mL/min/{1.73_m2} Low >60 [facility] Comment on above: Result Comment: mL/m in/1.73m2 CKD-EPI Creatinine Equation (2020) Performed By: #### L 100.0100, L500.2500, [id number] #### [facility] [address] [place], [address] Glucose [Mass/Vol] 113 mg/dL High 70-99 [facility] Comment on above: Performed By: #### L 100.0100, L500.2500, [id number] #### [facility] [address] [place], [address] Potassium [Moles/Vol] 3.3 mmol/L Normal 3.3-5.[address] [facility] Comment on above: Performed By: #### L 100.0100, L500.2500, [id number] #### [facility] [address] [place], [address] Sodium [Moles/Vol] 136 mmol/L Normal 133-145 [facility] Comment on above: Performed By: #### L 100.0100, L500.2500, [id number] #### [facility] [address] [place], [address] Urea nitrogen [Mass/Vol] 29 mg/dL High 4-19 [facility] Comment on above: Performed By: #### L 100.0100, L500.2500, [id number] #### [facility] [address] [place], [address] Basophil percentageOrdered B y: Elvira Campbell on 02-10-2025 Basophils/100 WBC (Bld) 0.6 % 0-1 [facility] Bilirubin Test strip Ql (U)O rdered By: Elvira Campbell on 02-10-2025 Bilirubin Ql (U) Negative Negative [facility] Blood manual differential co mment interpretation (narrative result)Ordered By: Elvira Campbell on 02-10-2025 Manual differential comment Gregory (Bld) [Interp] SCANNED [facility] CBC W/Diff, Automatedon 08-0 PLT EST MOD INC Normal ADEQ [facility] Comment on above: Performed By: #### L 100.0100, L500.2500, [id number] #### [facility] [address] [place], [address] SMEAR COMMENT SCANNED Normal [facility] Comment on above: Performed By: #### L 100.0100, L500.2500, [id number] #### [facility] [address] [place], [address] Carbon dioxide, total [Moles /volume] in Central venous bloodOrdered By: Elvira Campbell on 02-10-2025 CO2 [Moles/Vol] 24.7 mmol/L 21.0-32.0 [facility] Chloride assayOrdered By: Nika Campbell on 02-10-2025 Chloride [Moles/Vol] 96 mmol/L Low 98-108 [facility] Emergency Department Summary on 02-10-2025 Emergency Department Summary [facility] Medical Records Department [address] [place] [address] Emergency Department Summary 02/10/25 MR#: [id number] Acct: [id number] Name: PATY RIOS Rep #: [id number] : 1940 84 From: Elvira LANE PCP: Dr. Russ Barone MD Status:DEP ER Location: ED HPI History of Present Illness Chief Complaint: Diarrhea Narrative Narrative: 84 old female states 2 weeks ago she started having diarrhea. A few days into the illness the diarrhea became heavy and she was going multiple times throughout the day. No black or bloody stools. She never had nausea, vomiting, or abdominal pain. It is slowed down to 2-3 watery bowel movements a day. She saw her primary care doctor yesterday and had blood work and they called her today stating her white blood cell count was elevated and she has a kidney injury from dehydration and to go to the ED for fluids. PFSH PFSH Home Medications ???Medication ???Instructions ???Recorded ???Last Taken ???Type levofloxacin 750 mg tablet 750 mg PO DAILY 7 days #7 tabs 01/28 Unknown Rx metronidazole 500 mg tablet 500 mg PO BID 7 days #14 tabs 01/28 Unknown Rx Allergy/AdvReac Type Severity Reaction Status Date / Time amoxicillin Allergy Intermediate Hives Verified 02/10/25 16:40 Social History Smoking Status: Never smoker ROS ROS ED ROS Narrative Constitutional: Negative for fever, chills, malaise. GI: Positive for diarrhea. Negative for abdominal pain, nausea, vomiting, melena, hematochezia. : Negative for dysuria. EXAM Physical Exam Narrative Exam Narrative: CONST: Patient sitting in no acute distress. EYES: Normal inspection. NECK: Normal inspection. RESP: No respiratory distress, CTAB. CVS: Regular rate and rhythm, no murmur, no gallop. ABD: Soft and nontender, no guarding or rebound, nondistended, normal bowel sounds x 4 SKIN: Color normal, no rash, warm, dry, intact. EXTREMITIES: Normal appearance, no pedal edema. NEURO: Alert and answering questions appropriately. PSYCH: Normal affect. Const Vital Signs: 02/10/25 16:38 02/10/25 18:37 Temperature 97.4 F L Temperature Source Oral Pulse Rate 77 80 Respiratory Rate 18 18 Blood Pressure 108/91 H 140/59 H Blood Pressure Mean 96 86 Pulse Ox 93 95 Oxygen Delivery Method Room Air Room Air Physical Exam Const Vital Signs: 02/10/25 16:38 02/10/25 18:37 Temperature 97.4 F L Temperature Source Oral Pulse Rate 77 80 Respiratory Rate 18 18 Blood Pressure 108/91 H 140/59 H Blood Pressure Mean 96 86 Pulse Ox 93 95 Oxygen Delivery Method Room Air Room Air MDM MDM MDM Narrative Medical decision making narrative: History gathered from: Patient and family members Differential includes but not limited to colitis, diverticulitis, viral etiology, C. difficile 84-year-old female has had 2 weeks of diarrhea, reporting initially the diarrhea was very frequent but now slowed down to 2-3 episodes a day. She has never had fever, chills, nausea or vomiting, or abdominal pain. A provider from her IM clinic called and states her white blood cell count was 16 and creatinine was 1.85 from labs drawn yesterday. Here she is awake alert no distress, vital stable. Her exam is completely benign with soft, nontender abdomen. WBC is 19.0 but lactic is normal at 1.9. BMP is overall unremarkable and creatinine is 1.20. She was given IV fluids. CT shows resolution of symptoms. Colitis. Since she is still having diarrhea and has significant leukocytosis so we will put her on Levaquin and Flagyl. First dose was given in ED. She does not have systemic symptoms and has never had abdominal pain and then is very well-appearing so is appropriate for outpatient management. I discussed return precautions. She was discharged in stable condition. History Record Review Discussion w/independent historian: Patient and Family Additional record(s) reviewed:: Prior labs Lab Data Labs: Laboratory Results - last 24 hr 02/10/25 17:59 WBC 19.0 H RBC 3.88 L Hgb 12.3 Hct 37.9 MCV 97.7 MCH 31.7 MCHC 32.5 RDW Std Deviation 47.4 H RDW Coeff of Anay 13.1 Plt Count 542 H MPV 8.0 Immature Gran % (Auto) 0.700 Neut % (Auto) 82.0 H Lymph % (Auto) 6.1 L Ocean % (Auto) 10.4 H Eos % (Auto) 0.2 Baso % (Auto) 0.6 Absolute Neuts (auto) 15.6 H Absolute Lymphs (auto) 1.16 Nucleated RBC % 0 Sodium 136 Potassium 3.3 Chloride 96 L Carbon Dioxide 24.7 Anion Gap 15 BUN 29 H Creatinine 1.20 Estim Creat Clear Calc 23.62 L Est GFR (MDRD) Non-Af 44 L BUN/Creatinine Ratio 24.1 H Glucose 113 H Lactic Acid 1.9 Calcium 9.2 Radiography Diagnostic Testing: Clinical Impression(s) (more content not included)... Normal [facility] Eosinophil percentageOrdered By: Elvria Campbell on 02-10-2025 Eosinophils/100 WBC (Bld) 0.2 % 0-5 [facility] Erythrocyte distribution wid th ratioOrdered By: Elvira Campbell on 02-10-2025 Erythrocyte distribution width (RBC) [Ratio] 13.1 % 11.6-14.6 [facility] Erythrocyte distribution wid th standard deviationOrdered By: Elvira Campbell on 02-10-2025 Erythrocyte distribution width (RBC) [Ratio] 47.4 fl High 35.1-43.9 [facility] Glomerular filtration rate ( GFR) estimation/1.73 sq m using serum, plasma, or whole bOrdered By: Elvira Campbell on 02-10-2025 GFR/1.73 sq M.predicted among non-blacks MDRD (S/P/Bld) [Vol rate/Area] 44 mL/min/{1.73_m2} Low >60 [facility] Comment on above: mL/min/1.73m2 CKD-EP I Creatinine Equation (2020) Hematocrit Auto (Bld) [Volum e fraction]Ordered By: Elvira Campbell on 02-10-2025 Hematocrit (Bld) [Volume fraction] 37.9 % 37-47 [facility] Hemoglobin measurementOrdere d By: Elvira Campbell on 02-10-2025 Hemoglobin (Bld) [Mass/Vol] 12.3 g/dL 12.0-15.0 [facility] Immature granulocytes/100 WB C Auto (Bld)Ordered By: Elvira Campbell on 02-10-2025 Immature granulocytes/100 WBC (Bld) 0.700 % 0.0-0.9 [facility] Comment on above: IG% - Immature Granu locytes (promyelocytes, myelocytes and metamyelocytes) > 1% indicates that a LEFT SHIFT is Present. Ketones Test strip Ql (U)Ord ered By: Elvira Campbell on 02-10-2025 Ketones Ql (U) Negative Negative [facility] Lactic Acidon 02-10-2025 Lactate [Moles/Vol] 1.9 mmol/L Normal 0.0-2.0 [facility] Comment on above: Order Comment: Y Performed By: #### L 100.0100, L500.2500, L503.6005 #### [facility] [address] [place] [address]. [place], [address] Lactic acid measurementOrder ed By: Elvira Campbell on 02-10-2025 Lactate [Moles/Vol] 1.9 mmol/L 0.0-2.0 [facility] MCV (mean corpuscular volume ) determinationOrdered By: Elvira Campbell on 02-10-2025 MCV (RBC) [Entitic vol] 97.7 fL 81-99 [facility] Mean corpuscular hemoglobin (MCH) determinationOrdered By: Elvira Campbell on 02-10-2025 MCH (RBC) [Entitic mass] 31.7 pg 27.0-32.0 [facility] Mean corpuscular hemoglobin concentration (MCHC) determinationOrdered By: Elvira Campbell on 02-10-2025 MCHC (RBC) [Mass/Vol] 32.5 g/dL 32-[address] [facility] Mean platelet volume determi nationOrdered By: Elvira Campbell on 02-10-2025 Platelet mean volume (Bld) [Entitic vol] 8.0 fL 6.2-12.0 [facility] Microscopic analysis of urin e for red blood cells (RBC)Ordered By: Elvira Campbell on 02-10-2025 Microscopic analysis of urine for red blood cells (RBC) 0-5 SEEN /hpf 0-5 [facility] Monocyte percentageOrdered B y: Elviar Campbell on 02-10-2025 Monocytes/100 WBC (Bld) 10.4 % High 0-10 [facility] Mucus LM Ql (Urine sed)Order ed By: Elvira Campbell on 02-10-2025 Mucus Ql (Urine sed) 0 SEEN /hpf [facility] Neutrophil percentageOrdered By: Elvira Campbell on 02-10-2025 Neutrophils/100 WBC (Bld) 82.0 % High 47-70 [facility] Nitrite Test strip Ql (U)Ord ered By: Elvira Campbell on 02-10-2025 Nitrite Ql (U) Negative Negative [facility] Nucleated red blood cell per centageOrdered By: Elvira Campbell on 02-10-2025 Nucleated RBC/100 WBC (Bld) [Ratio] 0 % 0-5 [facility] Platelet countOrdered By: Nika Campbell on 02-10-2025 Platelets (Bld) [#/Vol] 542 10*3/uL High 150-450 [facility] Platelet estimateOrdered By: Elvira Campbell on 02-10-2025 Platelets LM Ql (Bld) MOD INC ADEQ [facility] Potassium measurement (mass/ volume)Ordered By: Elvira Campbell on 02-10-2025 Potassium (Unsp spec) [Mass/Vol] 3.3 mmol/L 3.3-5.1 [facility] Protein Test strip Ql (U)Ord ered By: Elvira Campbell on 02-10-2025 Protein Ql (U) 30 mg/dl High Negative [facility] RBC Auto (Bld) [#/Vol]Ordere d By: Elvira Campbell on 02-10-2025 RBC (Bld) [#/Vol] 3.88 10*6/uL Low 4.2-5.4 [facility] Serum creatinine measurement (mass/volume)Ordered By: Elvira Campbell on 02-10-2025 Creatinine [Mass/Vol] 1.20 mg/dL 0.70-1.[address] [facility] Serum glucose measurement (m ass/volume)Ordered By: Elvira Campbell on 02-10-2025 Glucose [Mass/Vol] 113 mg/dL High 70-99 [facility] Serum or plasma calcium jaki urement (mass/volume)Ordered By: Elvira Campbell on 02-10-2025 Calcium [Mass/Vol] 9.2 mg/dL 7.6-11.0 [facility] Serum or plasma urea nitroge n measurement (mass/volume)Ordered By: Elvira Campbell on 02-10-2025 Urea nitrogen [Mass/Vol] 29 mg/dL High 4-19 [facility] Sodium levelOrdered By: Elvira Campbell on 02-10-2025 Sodium [Moles/Vol] 136 mmol/L 133-145 [facility] Squamous epithelial cells de tection in urine sediment by light microscopyOrdered By: Elvira Campbell on 02-10-2025 Epithelial cells.squamous LM Ql (Urine sed) 0-5 SEEN /hpf 5-10 [facility] Transitional cells detection in urine sediment by light microscopyOrdered By: Elvira Campbell on 02-10-2025 Transitional cells LM Ql (Urine sed) 0-5 SEEN /hpf 0-5 [facility] Urinalysis, Completeon 02-10 EPI,TRANSITION 0-5 SEEN Normal 0-5 [facility] Comment on above: Order Comment: CLEAN CATCH Performed By: #### L 400.0001 #### [facility] [place] [address], [address] EPI,SQUAMOUS 0-5 SEEN Normal 5-10 [facility] Comment on above: Order Comment: CLEAN CATCH Performed By: #### L 400.0001 #### [facility] [address] [place], [address] RBC 0-5 SEEN Normal 0-5 [facility] Comment on above: Order Comment: CLEAN CATCH Performed By: #### L 400.0001 #### [facility] [address] [place], [address] WBC 0-5 SEEN Normal 0-5 [facility] Comment on above: Order Comment: CLEAN CATCH Performed By: #### L 400.0001 #### [facility] [address] [place], [address] BACTERIA 0 SEEN Normal None Seen [facility] Comment on above: Order Comment: CLEAN CATCH Performed By: #### L 400.0001 #### [facility] [address] [place], [address] Mucus Ql (Urine sed) 0 SEEN Normal [facility] Comment on above: Order Comment: CLEAN CATCH Performed By: #### L 400.0001 #### [facility] [address] [place], [place], [address] Urine clarityOrdered By: Brook Campbell on 02-10-2025 Clarity (U) Clear Clear [facility] Urine color determinationOrd ered By: Elvira Campbell on 02-10-2025 Color (U) Yellow Yellow [facility] Urine glucose detectionOrder ed By: Elvira Campbell on 02-10-2025 Glucose Ql (U) Normal mg/dl Normal [facility] Urine leukocyte esterase det ection by dipstickOrdered By: Elvira Campbell on 02-10-2025 Leukocyte esterase Test strip Ql (U) Negative Negative [facility] Urine pHOrdered By: Elvira oseguera on 02-10-2025 pH (U) 6.0 [pH] 5.0 - 8.0 [facility] Urine sediment bacteria coun t by microscopy (number/high power field)Ordered By: Elvira Campbell on 08-07-2025 Bacteria LM.HPF (Urine sed) [#/Area] 0 /[HPF] None Seen [facility] Urine specific gravity measu rementOrdered By: Elvira Campbell on 02-10-2025 Specific gravity (U) [Rel density] 1.010 1.002-1.030 [facility] Urine urobilinogen measureme ntOrdered By: Elvira Campbell on 02-10-2025 Urobilinogen Ql (U) Normal mg/dl Normal [facility] White blood cell (WBC) count Ordered By: Elvira Campbell on 02-10-2025 WBC (Bld) [#/Vol] 19.0 10*3/uL High 4.4-11.0 [facility] White blood cell countOrdere d By: Elvira Campbell on 02-10-2025 White blood cell count 0-5 SEEN /hpf 0-5 [facility] CBC W Auto Differential pane l (Bld)on 02-09-2025 Basophils (Bld) [#/Vol] 0.00 10*3/uL Normal <0.11 [facility] Comment on above: Order Comment: Speci men Type: BLOOD SPECIMENOrdering Facility: [facility] Address: [address] [place] [address] Performed By: #### 5 7021-8 ####[facility] LABCLIA [id number] [place] [address] [place] Basophils/100 WBC (Bld) 0.0 % Normal [facility] Comment on above: Order Comment: Speci men Type: BLOOD SPECIMENOrdering Facility: [facility] Address: [address] [place] [address] Performed By: #### 5 7021-8 ####[facility] LABCLIA [id number] [place] [address] [place] Differential cell count method Nom (Bld) Manual Normal [facility] Comment on above: Order Comment: Speci men Type: BLOOD SPECIMENOrdering Facility: [facility] Address: [address] [place] [address] Performed By: #### 5 7021-8 ####[facility] LABCLIA [id number] [address] [place] [address] [place] Eosinophils (Bld) [#/Vol] 0.00 10*3/uL Normal <0.46 [facility] Comment on above: Order Comment: Speci men Type: BLOOD SPECIMENOrdering Facility: [facility] Address: [address] [place] [address] Performed By: #### 5 7021-8 ####[facility] LABCLIA [id number] [address], [place] [address] [place] Eosinophils/100 WBC (Bld) 0.0 % Normal [facility] Comment on above: Order Comment: Speci men Type: BLOOD SPECIMENOrdering Facility: [facility] Address: [address] [place] [address] Performed By: #### 5 7021-8 ####[facility]CLIA [id number] [address], [place] [address] [place] Erythrocyte distribution width (RBC) [Ratio] 13.3 % Normal 11.5-15.0 [facility] Comment on above: Order Comment: Speci men Type: BLOOD SPECIMENOrdering Facility: [facility] Address: [address] [place] [address] Performed By: #### 5 7021-8 ####[facility] LABCLIA [id number] [address], [place] [address] [place] Hematocrit (Bld) [Volume fraction] 40.4 % Normal 36.0-46.0 [facility] Comment on above: Order Comment: Speci men Type: BLOOD SPECIMENOrdering Facility: [facility] Address: [address] [place] [address] Performed By: #### 5 7021-8 ####[facility]CLIA [id number] [address], [facility] [place] Hemoglobin (Bld) [Mass/Vol] 12.9 g/dL Normal 11.5-15.5 [facility] Comment on above: Order Comment: Speci men Type: BLOOD SPECIMENOrdering Facility: [facility] Address: [address] [place] [address] Performed By: #### 5 7021-8 ####[facility] LABCLIA [id number] [place] [address] [place] Lymphocytes (Bld) [#/Vol] 1.01 10*3/uL Normal 1.00-4.00 [facility] Comment on above: Order Comment: Speci men Type: BLOOD SPECIMENOrdering Facility: [facility] Address: [address] [place] [address] Performed By: #### 5 7021-8 ####[facility] LABCLIA [id number] [place] [address] [place] Lymphocytes/100 WBC (Bld) 6.1 % Normal [facility] Comment on above: Order Comment: Speci men Type: BLOOD SPECIMENOrdering Facility: [facility] Address: [address] [place] [address] Performed By: #### 5 7021-8 ####[facility] LABCLIA [id number] [place] [address] [place] MCH (RBC) [Entitic mass] 31.5 pg Normal 26.0-34.0 [facility] Comment on above: Order Comment: Speci men Type: BLOOD SPECIMENOrdering Facility: [facility] Address: [address] [place] [address] Performed By: #### 5 7021-8 ####[facility] LABCLIA [id number] [place] [id number] [place] MCHC (RBC) [Mass/Vol] 31.9 g/dL Normal 30.5-36.0 [facility] Comment on above: Order Comment: Speci men Type: BLOOD SPECIMENOrdering Facility: [facility] Address: [address] [place] [address] Performed By: #### 5 7021-8 ####[facility] LABCLIA [id number] [address] [place] [address] [place] MCV (RBC) [Entitic vol] 98.5 fL Normal 80.0-100.0 [facility] Comment on above: Order Comment: Speci men Type: BLOOD SPECIMENOrdering Facility: [facility] Address: [address] [place] [address] Performed By: #### 5 7021-8 ####[facility]CLIA [id number] [address], [place] [address] [place] Monocytes (Bld) [#/Vol] 1.44 10*3/uL High <0.87 [facility] Comment on above: Order Comment: Speci men Type: BLOOD SPECIMENOrdering Facility: [facility] Address: [address] [place] [address] Performed By: #### 5 7021-8 ####[facility] LABCLIA [id number] [address], [facility] [place] Monocytes/100 WBC (Bld) 8.7 % [facility] Comment on above: Order Comment: Speci men Type: BLOOD SPECIMENOrdering Facility: [facility] Address: [address] [place] [address] Performed By: #### 5 7021-8 ####[facility] LABCLIA [id number] [address], [facility] [place] Neutrophils (Bld) [#/Vol] 14.12 10*3/uL High 1.45-7.50 [facility] Comment on above: Order Comment: Speci men Type: BLOOD SPECIMENOrdering Facility: [facility] Address: [address] [place] [address] Performed By: #### 5 7021-8 ####[facility] LABCLIA [id number] [place] [id number] [place] Neutrophils/100 WBC (Bld) 85.2 % Normal [facility] Comment on above: Order Comment: Speci men Type: BLOOD SPECIMENOrdering Facility: [facility] Address: [address] [place] [address] Performed By: #### 5 7021-8 ####[facility]CLIA [id number] [place] [address] [place] Nucleated RBC (Bld) [#/Vol] 10*3/uL Normal <0.01 [facility] Comment on above: Order Comment: Speci men Type: BLOOD SPECIMENOrdering Facility: [facility] Address: [address] [place] [address] Performed By: #### 5 7021-8 ####[facility]CLIA [id number] [place] [address] [place] Nucleated RBC/100 WBC (Bld) [Ratio] 0.0 /100 WBC Normal [facility] Comment on above: Order Comment: Speci men Type: BLOOD SPECIMENOrdering Facility: [facility] Address: [address] [place] [address] Performed By: #### 5 7021-8 ####[facility]CLIA [id number] [place] [address] [place] Ovalocytes LM Ql (Bld) Few Normal Cl [facility] Comment on above: Order Comment: Speci men Type: BLOOD SPECIMENOrdering Facility: [facility] Address: [address] [place] [address] Performed By: #### 5 7021-8 ####[facility] LABIA [id number] [place] [address] [place] Platelet mean volume (Bld) [Entitic vol] 8.5 fL Low 9.0-12.7 [facility] Comment on above: Order Comment: Speci men Type: BLOOD SPECIMENOrdering Facility: [facility] Address: [address] [place] [address] Performed By: #### 5 7021-8 ####[facility] LABCLIA [id number] [address] [place] [address] [place] Platelets (Bld) [#/Vol] 572 10*3/uL High 150-400 [facility] Comment on above: Order Comment: Speci men Type: BLOOD SPECIMENOrdering Facility: [facility] Address: [address] [place] [address] Performed By: #### 5 7021-8 ####[facility] LABCLIA [id number] [address] [place] [address] [place] Platelets Estimate (Bld) [#/Vol] Increased Normal [facility] Comment on above: Order Comment: Speci men Type: BLOOD SPECIMENOrdering Facility: [facility] Address: [address] [place] [address] Performed By: #### 5 7021-8 ####[facility]CLIA [id number] [address] [place] [address] [place] RBC (Bld) [#/Vol] 4.10 10*6/uL Normal 3.90-5.20 [facility] Comment on above: Order Comment: Speci men Type: BLOOD SPECIMENOrdering Facility: [facility] Address: [address] [place] [address] Performed By: #### 5 7021-8 ####[facility] LABCLIA [id number] [address] [place] [address] [place] RED CELL MORPH Reviewed: see result s of individual morphologies Normal [facility] Comment on above: Order Comment: Speci men Type: BLOOD SPECIMENOrdering Facility: [facility] Address: [address] [place] [address] Performed By: #### 5 7021-8 ####[facility]CLIA [id number] [address] [place] [address] [place] WBC (Bld) [#/Vol] 16.57 10*3/uL High 3.70-11.00 [facility] Comment on above: Order Comment: Speci men Type: BLOOD SPECIMENOrdering Facility: [facility] Address: [address] [place] [address] Performed By: #### 5 7021-8 ####[facility] LABCLIA [id number] JOYCELYNJack CISNER[id number] [place] [address] [place] CNOVon 02-09-2025 CNOV Office Visit (INTMWS ) PATY RIOS ([id number]) 1940 F Date Time Provider Department 02/09/25 2:00 PM MARTHA FUNK INTALDO During your visit today, we recorded the following information about you: Temperature Pulse Respiration Blood pressure 96.6 degrees 60/minute 16/minute 112/60 Weight 44 kg Martha Funk APRN.CNP 02/09/2025 6:38 PM Signed CC: Patient presents with: Diarrhea: Diarrhea x 1 week HPI Paty Rios is a 84 year old female who presents today for diarrhea for 10 days. Patient with intermittent diarrhea starting over 10 days ago which she started taking imodium for. Has had continuous diarrhea for 1 week after eating tomatoes fresh from a neighbors garden. Since eating the tomatoes has had liquid diarrhea every morning and every time she has eaten anything. Has continued the usage of imodium throughout this ordeal. On Friday, stool started to become less liquid but not formed. Currently still taking imodium. Describes the diarrhea as liquid brown. Reports decreased appetite as the only accompanying symptom. Denies any abdominal pain or cramping, nausea, vomiting, foul smelling stools, or bloody stools. Denies fever or chills, palpitations or dizziness, reports feeling weak as has not been able to eat much. Drinking Pedialyte and increased fluid intake to aid with hydration. States still has gallbladder. Denies travel, hiking, abnormal diet, new water usage, denies history of C.Diff or recent antibiotic usage. Has no pets. No known sick contacts. Patient has lost 10lbs since September, unintentional. States has lost 5lbs this week, contributes this to diarrhea. REVIEW OF SYSTEMS General: no fevers, no chills, no night sweats, no recurrent infections, no change in energy, and Positive for: weight loss Respiratory: no cough, no wheezing, no shortness of breath, no hemoptysis Cardiovascular: no chest pain, no chest pressure, no palpitations, and no swelling GI: Negative for abdominal discomfort, blood in stools or black stools, heart burn, nausea, vomiting and Positive for diarrhea for 10 days : No history of dysuria, frequency or incontinence Neurologic: No headache, weakness, numbness, tingling, neck stiffness, tremor, vertigo, dizziness, memory loss, syncope. PAST MEDICAL HISTORY [...] INSJ IO LENS PROSTH W/O ECP 2010 Phacoemulsification/In traocular Lens Insertion XCAPSL CTRC RMVL INSJ IO LENS PROSTH W/O ECP 2010 Phacoemulsification/In traocular Lens Insertion ALLERGIES Augmentin [Amoxicillin-Pot Clavulanate], Fosamax [Alendronate Sodium], Grass Pollen, and Valtrex [Valacyclovir] MEDICATIONS meloxicam (MOBIC) 15 mg tablet Take 1 tablet by mouth once daily. for pain. Take with food. simvastatin (ZOCOR) 10 mg tablet Take 1 tablet by mouth daily at bedtime. levothyroxine (LEVOXYL) 100 mcg tablet Take 1 tablet by mouth once daily. atenolol (TENORMIN) 50 mg tablet Take 1 tablet by mouth once daily. hydroCHLOROthiazide 12.5 mg capsule Take 1 capsule by mouth once daily. losartan (COZAAR) 25 mg tablet Take 1 tablet by mouth once daily. Cetirizine (ZYRTEC) 10 mg ORAL Cap Take [...] No Drug use: No PHYSICAL EXAM BP 112/60 Pulse 60 Temp (!) 35.9 ?C (96.6 ?F) (Temporal) Resp 16 Wt 44 kg (97 lb) SpO2 97% BMI 19.56 kg/m? General Appearance: well appearing, in no acute distress, alert Lungs: Lungs clear to auscultation. No wheezing, rhonchi, rales. Heart: RRR without murmur, gallop, or rubs. No ectopy Abdomen: Abdomen soft, non-tender. Bowel sounds normal. No masses, organomegaly Health maintenance reviewed with patient: Anxiety Screening Never done DTaP,Tdap,Td Vaccine(1 - Tdap) due on 04/09/2006 RSV Vaccine(1 - 1-dose 75+ se (more content not included)... Normal [facility] Comprehensive metabolic 2000 panelon 02-09-2025 Albumin [Mass/Vol] 3.5 g/dL Low 3.9-4.9 [facility] Comment on above: Order Comment: Speci men Type: BLOOD SPECIMENOrdering Facility: [facility] Address: [address] [place] [address] Performed By: #### 2 4323-8, 3051-0, 3024-7, 3016-3 ####[facility] LABCLIA [id number] [place] [address] [place] ALP [Catalytic activity/Vol] 95 U/L Normal 34-123 [facility] Comment on above: Order Comment: Speci men Type: BLOOD SPECIMENOrdering Facility: [facility] Address: [address] [place] [address] Performed By: #### 2 4323-8, 3051-0, 3024-7, 3016-3 ####[facility] LABCLIA [id number] [place] [address] [place] ALT [Catalytic activity/Vol] 9 U/L Normal 7-38 [facility] Comment on above: Order Comment: Speci men Type: BLOOD SPECIMENOrdering Facility: [facility] Address: [address] [place] [address] Performed By: #### 2 4323-8, 3051-0, 302-7, 6-3 ####[facility] LABIA [id number] [place] [address] [place] Anion gap [Moles/Vol] 17 mmol/L High 8-15 [facility] Comment on above: Order Comment: Speci men Type: BLOOD SPECIMENOrdering Facility: [facility] Address: [address] [place] [address] Performed By: #### 2 4323-8, 3051-0, 302-7, 6-3 ####[facility] LABIA [id number] [place] [address] [place] AST [Catalytic activity/Vol] 13 U/L Normal 13-35 [facility] Comment on above: Order Comment: Speci men Type: BLOOD SPECIMENOrdering Facility: [facility] Address: [address] [place] [address] Performed By: #### 2 4323-8, 3051-0, 302-7, 3016-3 ####[facility] LABCLIA [id number] [address] [address] [place] Bilirubin [Mass/Vol] 0.4 mg/dL Normal 0.2-1.3 [facility] Comment on above: Order Comment: Speci men Type: BLOOD SPECIMENOrdering Facility: [facility] Address: [address] [place] [address] Performed By: #### 2 4323-8, 3051-0, 3024-7, 3016-3 ####[facility] LABCLIA [id number] [facility] [address] [address] [place] Calcium [Mass/Vol] 9.6 mg/dL Normal 8.5-10.2 [facility] Comment on above: Order Comment: Speci men Type: BLOOD SPECIMENOrdering Facility: [facility] Address: [address] [place] [address] Performed By: #### 2 4323-8, 3051-0, 3024-7, 6-3 ####[facility] LABCLIA [id number] [place] [address] [place] Chloride [Moles/Vol] 97 mmol/L Low 98-107 [facility] Comment on above: Order Comment: Speci men Type: BLOOD SPECIMENOrdering Facility: [facility] Address: [address] [place] [address] Performed By: #### 2 4323-8, 3051-0, 302-7, 6-3 ####[facility] LABCLIA [id number] [address] [address] [place] CO2 [Moles/Vol] 23 mmol/L Normal 22-30 [facility] Comment on above: Order Comment: Speci men Type: BLOOD SPECIMENOrdering Facility: [facility] Address: [address] [place] [address] Performed By: #### 2 4323-8, 3051-0, 3024-7, 3016-3 ####[facility] LABCLIA [id number] [facility] [address] [address] [place] Creatinine [Mass/Vol] 1.85 mg/dL High 0.58-0.96 [facility] Comment on above: Order Comment: Tomasz mast Type: BLOOD SPECIMENOrdering Facility: [facility] Address: [address] [place] [address] Performed By: #### 2 4323-8, 3051-0, 3024-7, 3016-3 ####[facility] LABCLIA [id number] [place] [address] [place] eGFRcr SerPlBld CKD-EPI 2020 26 mL/min/1.73m??? Low >=60 [facility] Comment on above: Order Comment: Tomasz mast Type: BLOOD SPECIMENOrdering Facility: [facility] Address: [address] [place] [address] Result Comment: Briana mated Glomerular Filtration Rate [...] reflect actual GFR. Performed By: #### 2 4323-8, 3051-0, 3024-7, 3016-3 ####[facility] LABCLIA [id number] [place] [address] [place] Glucose [Mass/Vol] 110 mg/dL High 74-99 [facility] Comment on above: Order Comment: Tomasz mast Type: BLOOD SPECIMENOrdering Facility: [facility] Address: [address] [place] [address] Result Comment: The [place] Diabetes Association (ADA) provides guidance for cutoff [...] Standards of Medical Care in Diabetes 2016, [place] Diabetes Association. Diabetes Care. 2016.39(Suppl 1). Performed By: #### 2 4323-8, 3051-0, 3024-7, 6-3 ####[facility] LABCLIA [id number] [facility] [address] [address] [place] Potassium [Moles/Vol] 3.6 mmol/L Low 3.7-5.1 [facility] Comment on above: Order Comment: Speci men Type: BLOOD SPECIMENOrdering Facility: [facility] Address: [address] [place] [address] Performed By: #### 2 4323-8, 3051-0, 7, 6-3 ####[facility] LABCLIA [id number] [address] [address] [place] Protein [Mass/Vol] 7.5 g/dL Normal 6.3-8.0 [facility] Comment on above: Order Comment: Tomasz mast Type: BLOOD SPECIMENOrdering Facility: [facility] Address: [address] [place] [address] Performed By: #### 2 4323-8, 3051-0, 7, 6-3 ####[facility] LABCLIA [id number] [address] [address] [place] Sodium [Moles/Vol] 137 mmol/L Normal 136-144 [facility] Comment on above: Order Comment: Speci men Type: BLOOD SPECIMENOrdering Facility: [facility] Address: [address] [place], [place] [address] Performed By: #### 2 4323-8, 305-0, 3023-7, 6-3 ####[facility] LABCLIA [id number] [facility] [address] [address] [place] Urea nitrogen [Mass/Vol] 36 mg/dL High 7-21 [facility] Comment on above: Order Comment: Speci men Type: BLOOD SPECIMENOrdering Facility: [facility] Address: [address] [place] [address] Performed By: #### 2 4323-8, 305-0, 7, 6-3 ####[facility] LABCLIA [id number] [place] [address] [place] T3Free SerPl-mCncon 02-10-20 25 Free T3 [Mass/Vol] 1.8 pg/mL Low 2.3-4.1 [facility] Comment on above: Order Comment: Speci men Type: BLOOD SPECIMENOrdering Facility: [facility] Address: [address] [place] [address] Performed By: #### 2 4323-8, 305-0, 7, 6-3 ####[facility] LABCLIA [id number] [place] [address] [place] T4 Free SerPl-mCncon 025 Free T4 [Mass/Vol] 2.0 ng/dL High 0.9-1.7 [facility] Comment on above: Order Comment: Speci men Type: BLOOD SPECIMENOrdering Facility: [facility] Address: [address] [place] [address] Performed By: #### 2 4323-8, 305-0, 7, 6-3 ####[facility] LABCLIA [id number] [place] [address] [place] TSH SerPl-aCncon 02-09-2025 TSH Qn 0.176 m[IU]/L Low 0.270-4.200 [facility] Comment on above: Order Comment: Speci men Type: BLOOD SPECIMENOrdering Facility: [facility] Address: [address] [place] [address] Performed By: #### 2 4323-8, 305-0, 7, 6-3 ####[facility] LABJUAN J [id number] [place] [address] [place] CNOVon 09-14-2024 CNOV Office Visit (INTMWS ) PATY RIOS ([id number]) 1940 F Date Time Provider Department 09/14/24 [...] history review Reviewed and updated problem list, medical/surgical/famil y/social history, medications, and allergies. Opioid use review [...] BMI 21.57 kg/m? Vision Screening: Follows with optometry/ophthalmolog y Assessment/Plan Medicare annual wellness visit, subsequent (Z00.00) [...] INSJ IO LENS PROSTH W/O ECP 2010 Phacoemulsification/In traocular Lens Insertion XCAPSL CTRC RMVL INSJ IO LENS PROSTH W/O ECP 2010 Phacoemulsification/In traocular Lens Insertion FAMILY HISTORY Problem Relation Age [...] Lab/Diagnostic S (more content not included)... Normal [facility] CBC panel Auto (Bld)on 09-08 Erythrocyte distribution width (RBC) [Ratio] 11.7 % Normal 11.5-15.0 [facility] Comment on above: Order Comment: Speci men Type: BLOOD SPECIMENOrdering Facility: [facility] Address: [address] [place] [address] Performed By: #### 5 8410-2 ####[facility] EMERGENCYTaylor [id number] [place] [address] [place] Hematocrit (Bld) [Volume fraction] 42.9 % Normal 36.0-46.0 [facility] Comment on above: Order Comment: Speci men Type: BLOOD SPECIMENOrdering Facility: [facility] Address: [address] [place] [address] Performed By: #### 5 8410-2 ####[facility]ES[facility] MLITaylor [id number] [place] [address] [place] Hemoglobin (Bld) [Mass/Vol] 14.0 g/dL Normal 11.5-15.5 [facility] Comment on above: Order Comment: Speci men Type: BLOOD SPECIMENOrdering Facility: [facility] Address: [address] [place] [address] Performed By: #### 5 8410-2 ####[facility]ANA MTaylor [id number] [place] [address] [place] MCH (RBC) [Entitic mass] 32.2 pg Normal 26.0-34.0 [facility] Comment on above: Order Comment: Speci men Type: BLOOD SPECIMENOrdering Facility: [facility] Address: [address] [place] [address] Performed By: #### 5 8410-2 ####[facility] [id number] [place] [address] [place] MCHC (RBC) [Mass/Vol] 32.6 g/dL Normal 30.5-36.0 [facility] Comment on above: Order Comment: Speci men Type: BLOOD SPECIMENOrdering Facility: [facility] Address: [address] [place] [address] Performed By: #### 5 8410-2 ####[facility] [id number] [place] [address] [place] MCV (RBC) [Entitic vol] 98.6 fL Normal 80.0-100.0 [facility] Comment on above: Order Comment: Speci men Type: BLOOD SPECIMENOrdering Facility: [facility] Address: [address] [place] [address] Performed By: #### 5 8410-2 ####[facility] [id number] [address] [place] Nucleated RBC (Bld) [#/Vol] 10*3/uL Normal <0.01 [facility] Comment on above: Order Comment: Speci men Type: BLOOD SPECIMENOrdering Facility: [facility] Address: [address] [place] [address] Performed By: #### 5 8410-2 ####[facility] [id number] [place] [address] [place] Platelet mean volume (Bld) [Entitic vol] 8.7 fL Low 9.0-12.7 [facility] Comment on above: Order Comment: Speci men Type: BLOOD SPECIMENOrdering Facility: [facility] Address: [address] [place] [address] Performed By: #### 5 8410-2 ####[facility] WALESNCLIA [id number] [place] [address] [place] Platelets (Bld) [#/Vol] 272 10*3/uL Normal 150-400 [facility] Comment on above: Order Comment: Speci men Type: BLOOD SPECIMENOrdering Facility: [facility] Address: [address] [place] [address] Performed By: #### 5 8410-2 ####[facility] WALESNCA [id number] [place] [address] [place] RBC (Bld) [#/Vol] 4.35 10*6/uL Normal 3.90-5.20 [facility] Comment on above: Order Comment: Speci men Type: BLOOD SPECIMENOrdering Facility: [facility] Address: [address] [place] [address] Performed By: #### 5 8410-2 ####[facility] WALESNCLIA [id number] [place] [address] [place] WBC (Bld) [#/Vol] 4.49 10*3/uL Normal 3.70-11.00 [facility] Comment on above: Order Comment: Speci men Type: BLOOD SPECIMENOrdering Facility: [facility] Address: [address] [place] [address] Performed By: #### 5 8410-2 ####[facility] WALESNCLIA [id number] [place] [address] [place] Comprehensive metabolic 2000 panelon 09-08-2024 Albumin [Mass/Vol] 4.1 g/dL Normal 3.9-4.9 [facility] Comment on above: Order Comment: Speci men Type: BLOOD SPECIMENOrdering Facility: [facility] Address: [address] [place] [address] Performed By: #### 2 4331-1 ####[facility]ORATORYCLIA [id number] [address] OF [facility] C[facility]YPUSHMATA[facility] ANTLERSLIA [id number] [place] [address] [place]#### 54843-8 ####[facility] MILLWNCLIA [id number] [place] [address] [place]#### 3016-3 ####[facility]ORATORYCLIA [id number] [place] [address] [place] ALP [Catalytic activity/Vol] 59 U/L Normal 34-123 [facility] Comment on above: Order Comment: Speci men Type: BLOOD SPECIMENOrdering Facility: [facility] Address: [address] [place] [address] Performed By: #### 2 4331-1 ####[facility]ORATORYCLIA [id number] [address] OF [facility] SOUTHWOODSLIA [id number] [place] [address] [place]#### 97765-1 ####[facility] MILLTOWNCLIA [id number] [place] [address] [place]#### 3016-3 ####[facility]ORATORYCLIA [id number] [place] [address] [place] ALT [Catalytic activity/Vol] 6 U/L Low 7-38 [facility] Comment on above: Order Comment: Speci men Type: BLOOD SPECIMENOrdering Facility: [facility] Address: [address] [place] [address] Performed By: #### 2 4331-1 ####[facility]ORATORYCLIA [id number] [place], [place] [address] [place] [address] STATES OF [facility] MILLTOWNCLIA [id number] [place] [address] [place]#### 57265-4 ####[facility] MILLTOWNCLIA [id number] [place] [address] [place]#### 3016-3 ####[facility]ORATORYCLIA [id number] [place] [address] [place] Anion gap [Moles/Vol] 13 mmol/L Normal 8-15 [facility] Comment on above: Order Comment: Speci men Type: BLOOD SPECIMENOrdering Facility: [facility] Address: [address] [place] [address] Performed By: #### 2 4331-1 ####[facility]ORATORYCLIA [id number] [address] STATES OF [facility] MILLTOWNCLIA [id number] [place] [address] [place]#### 67105-0 ####[facility] MILLTOWNCLIA [id number] [place] [address] [place]#### 3016-3 ####[facility]ORATORYCLIA [id number] [address] [place] AST [Catalytic activity/Vol] 15 U/L Normal 13-35 [facility] Comment on above: Order Comment: Speci men Type: BLOOD SPECIMENOrdering Facility: [facility] Address: [address] [place] [address] Performed By: #### 2 4331-1 ####[facility]ORATORYCLIA [id number] [address] STATES OF [facility] MILLTOWNCLIA [id number] [place] [address] [place]#### 82578-7 ####[facility] MILLTOWNCLIA [id number] [place] [address] [place]#### 3016-3 ####[facility]ORATORYCLIA [id number] [place] [address] [place] Bilirubin [Mass/Vol] 0.6 mg/dL Normal 0.2-1.3 [facility] Comment on above: Order Comment: Speci men Type: BLOOD SPECIMENOrdering Facility: [facility] Address: [address] [place] [address] Performed By: #### 2 4331-1 ####[facility]ORATORYCLIA [id number] [place] [address] [place] [facility] MILLTOWNCLIA [id number] [place] [address] [place]#### 78226-6 ####[facility] MILLTOWNCLIA [id number] [place] [address] [place]#### 3016-3 ####[facility]ORATORYCLIA [id number] [place] [address] [place] Calcium [Mass/Vol] 9.3 mg/dL Normal 8.5-10.2 [facility] Comment on above: Order Comment: Speci men Type: BLOOD SPECIMENOrdering Facility: [facility] Address: [address] [place] [address] Performed By: #### 2 4331-1 ####[facility]ORATORYCLIA [id number] [address] STATES OF [facility]AM[facility] MILLTOWNCLIA [id number] [place] [address] [place]#### 89532-1 ####[facility] MILLTOWNCLIA [id number] [place] [address] [place]#### 3016-3 ####[facility]ORATORYCLIA [id number] [place] [address] [place] Chloride [Moles/Vol] 101 mmol/L Normal 98-107 [facility] Comment on above: Order Comment: Speci men Type: BLOOD SPECIMENOrdering Facility: [facility] Address: [address] [place] [address] Performed By: #### 2 4331-1 ####[facility]ATORYCLIA [id number] [address] STATES OF [facility] MILLTOWNCLIA [id number] [place] [address] [place]#### 59672-0 ####[facility] MILLTOWNCLIA [id number] [place] [address] [place]#### 3016-3 ####[facility]ORATORYCLIA [id number] [place] [address] [place] CO2 [Moles/Vol] 26 mmol/L Normal 22-30 [facility] Comment on above: Order Comment: Speci men Type: BLOOD SPECIMENOrdering Facility: [facility] Address: [address] [place] [address] Performed By: #### 2 4331-1 ####[facility]ATORYCLIA [id number] [address] STATES OF [facility] MILLTOWNCLIA [id number] [place] [address] [place]#### 73448-4 ####[facility] MILLTOWNCLIA [id number] [place] [address] [place]#### 3016-3 ####[facility]ORATORYCLIA [id number] [place] [address] Creatinine [Mass/Vol] 0.63 mg/dL Normal 0.58-0.96 [facility] Comment on above: Order Comment: Tomasz mast Type: BLOOD SPECIMENOrdering Facility: [facility] Address: [address] [place] [address] Performed By: #### 2 4331-1 ####[facility] LABORATORYCLIA [id number] [address] [id number] [address]#### 39739-3 ####[facility] HOSPITALLIA [id number] [address]#### 3016-3 ####[facility] HOSPITALIA [id number] [address] Creatinine and Glomerular filtration rate.predicted panel (S/P/Bld) 87 mL/min/1.73m??? Normal >=60 [facility] Comment on above: Order Comment: Tomasz mast Type: BLOOD SPECIMENOrdering Facility: [facility] Address: [address] [place] [address] Result Comment: Briana mated Glomerular Filtration Rate [...] reflect actual GFR. Performed By: #### 2 4331-1 ####[facility] LABORATORYCLIA [id number] [address] [id number] [address] [place]#### 90853-5 ####[facility] [id number] [place] [address] [place]#### 3016-3 ####[facility] LABORATORYCLIA [id number] [place] [address] [place] Glucose [Mass/Vol] 96 mg/dL Normal 74-99 [facility] Comment on above: Order Comment: Speci men Type: BLOOD SPECIMENOrdering Facility: [facility] Address: [address] [place], [place] [address] Result Comment: The [place] Diabetes Association (ADA) provides guidance for cutoff [...] Standards of Medical Care in Diabetes 2016, [place] Diabetes Association. Diabetes Care. 2016.39(Suppl 1). Performed By: #### 2 4331-1 ####[facility] LABORATORYCLIA [id number] [place] [address] [place] [facility] [id number] [place] [address] [place]#### 50344-0 ####[facility] EMERGENCYA [id number] [place] [address] [place]#### 3016-3 ####[facility] LABORATORYCLIA [id number] [place] [address] [place] Potassium [Moles/Vol] 3.5 mmol/L Low 3.7-5.1 [facility] Comment on above: Order Comment: Speci men Type: BLOOD SPECIMENOrdering Facility: [facility] Address: [address] [place] [address] Performed By: #### 2 4331-1 ####[facility]ORATORYCLIA [id number] [address] OF [facility] [place] MILLTOWNCLIA [id number] [address] [place]#### 87774-3 ####[facility] MILLTOWNCLIA [id number] [place] [address] [place]#### 3016-3 ####[facility]ORATORYCLIA [id number] [place] [address] [place] Protein [Mass/Vol] 6.8 g/dL Normal 6.3-8.0 [facility] Comment on above: Order Comment: Speci men Type: BLOOD SPECIMENOrdering Facility: [facility] Address: [address] [place] [address] Performed By: #### 2 4331-1 ####[facility]ORATORYCLIA [id number] [address] [facility]YPUSHMATA[facility] ANTLERSLIA [id number] [address] [place]#### 37903-2 ####[facility]PITALWNCLIA [id number] [address] [place]#### 3016-3 ####[facility]ORATORYCLIA [id number] [place] [address] [place] Sodium [Moles/Vol] 140 mmol/L Normal 136-144 [facility] Comment on above: Order Comment: Speci men Type: BLOOD SPECIMENOrdering Facility: [facility] Address: [address] [place] [address] Performed By: #### 2 4331-1 ####[facility] LABORATORYCLIA [id number] [address] STATES OF AMERICACLEVELAND NEW PRAGUE HOSPITALWSCLIA [id number] [place] [address] [place]#### [address]-0 ####[facility]PITALWNCLIA [id number] [place] [address] [place]#### 3016-3 ####[facility] LABORATORYCLIA [id number] [address] [place] Urea nitrogen [Mass/Vol] 13 mg/dL Normal 7-21 [facility] Comment on above: Order Comment: Speci men Type: BLOOD SPECIMENOrdering Facility: [facility] Address: [address] [place] [address] Performed By: #### 2 4331-1 ####[facility] LABORATORYCLIA [id number] [place] [address] [place] AMER[place]AHCA [facility] [facility]ERGENCYA [id number] [place] [address] [place]#### [address]-3 ####[facility] HOSPITALLIA [id number] [place] [address] [place]#### 3016-3 ####[facility]ORATORYCLIA [id number] [place] [address] [place] Lipid 1996 panelon 5 Cholesterol [Mass/Vol] 141 mg/dL Normal <200 [facility] Comment on above: Order Comment: Speci men Type: BLOOD SPECIMENOrdering Facility: [facility] Address: [address] [place] [address] Result Comment: <200 mg/dL, Desirable 200-239 mg/dL, Borderline high >239 mg/dL, High Performed By: #### 2 4331-1 ####[facility]ORATORYCLIA [id number] [address] STATES OF AMERICAPROMEDICA FLOWER HOSPITALLIA [id number] [address] STATES OF [place]#### [address]53-6 ####[facility] WALESNCLIA [id number] [address] [place]#### 3016-3 ####[facility]ATORYCLIA [id number] [address] Cholesterol in HDL [Mass/Vol] 37 mg/dL Low >39 [facility] Comment on above: Order Comment: Speci men Type: BLOOD SPECIMENOrdering Facility: [facility] Address: [address] [place] [address] Result Comment: 40-5 9 mg/dL, Acceptable >59 mg/dL, High: Negative risk factor for coronary heart disease <40 mg/dL, Low: Positive risk factor for coronary heart disease Performed By: #### 2 4331-1 ####[facility]ATORYCLIA [id number] [address] STATES OF [facility]ITALWSCLIA [id number] [address] OF [place]#### [address]93[address]-3 ####[facility] WALESNCLIA [id number] [address] [place]#### 3016-3 ####[facility]ATORYCLIA [id number] [address] Cholesterol in LDL [Mass/Vol] 68 mg/dL Normal <100 [facility] Comment on above: Order Comment: Speci men Type: BLOOD SPECIMENOrdering Facility: [facility] Address: [address] [place] [address] Result Comment: <100 mg/dL, Optimal 100-129 mg/dL, Near optimal/above optimal 130-159 mg/dL, Borderline high 160-189 mg/dL, High >189 mg/dL, Very high Secondary prevention optimal LDL Cholesterol levels are recommended to be < 70 mg/dL Performed By: #### 2 4331-1 ####[facility]ATORYCLIA [id number] [place], [place] [address] [place] [address] [id number] [place] [address] [place]#### 52442-0 ####[facility]ITALLIA [id number] [place] [address] [place]#### 3016-3 ####[facility] LABORATORYCLIA [id number] [place] [id number] [place] Cholesterol in LDL/Cholesterol in HDL [Mass ratio] 1.84 {ratio} Normal <2.54 [facility] Comment on above: Order Comment: Speci men Type: BLOOD SPECIMENOrdering Facility: [facility] Address: [address] [place] [address] Result Comment: Refe rence: 1. National Cholesterol Education Program ATP III Guideline At-A-Glance Quick Desk Reference: National Heart, Lung, and Blood [place]. National Institutes of Health. 2001: NIH Publication No. 01-3305. 2. An International Atherosclerosis Society position paper: global recommendations for the management of dyslipidemia: executive summary, Atherosclerosis. 2014: 232(2):410-413. Performed By: #### 2 4331-1 ####[facility] LABORATORYCLIA [id number] [address] STATES OF [facility] [id number] [place] [address] [place]#### 25133-7 ####[facility]ITALLIA [id number] [place] [address] [place]#### 3016-3 ####[facility] LABORATORYCLIA [id number] [address] [place] Cholesterol in VLDL [Mass/Vol] 36 mg/dL High <30 [facility] Comment on above: Order Comment: Speci men Type: BLOOD SPECIMENOrdering Facility: [facility] Address: [address] [place] [id number] Performed By: #### 2 4331-1 ####[facility]ATORYCLIA [id number] [address]IA [id number] [address] OF [place]#### 14860-1 ####[facility]ITALLIA [id number] [address] OF [place]#### 3016-3 ####[facility] LABORATORYCLIA [id number] [address] STATES [facility] Cholesterol non HDL [Mass/Vol] 104 mg/dL Normal <130 [facility] Comment on above: Order Comment: Speci men Type: BLOOD SPECIMENOrdering Facility: [facility] Address: [address] [place] [address] Result Comment: <130 mg/dL, Optimal 130-159 mg/dL, Near optimal/above optimal 160-189 mg/dL, Borderline high 190-219 mg/dL, High >219 mg/dL, Very high Secondary prevention optimal non HDL Cholesterol levels are recommended to be <100 mg/dL Performed By: #### 2 4331-1 ####[facility]ATORYCLIA [id number] [address] [id number] [address] OF [place]#### 50164-1 ####[facility]ITALLIA [id number] [place] [address] [facility] OF [place]#### 3016-3 ####[facility]ATORYCLIA [id number] [address] STATES OF [place] Cholesterol.total/Choles terol in HDL [Mass ratio] 3.81 {ratio} Normal <5.10 [facility] Comment on above: Order Comment: Speci men Type: BLOOD SPECIMENOrdering Facility: [facility] Address: [address] [place] [address] Performed By: #### 2 4331-1 ####[facility]ATORYCLIA [id number] [address] STATES OF [facility] COREYMAY[facility] MEMORIAL HOSPITALWNCLIA [id number] [place] [address] [place]#### 27613-6 ####[facility] MILLTOWNCLIA [id number] [place] [address] [place]#### 3016-3 ####[facility]ATORYCLIA [id number] [address] STATES OF [place] FASTING TIME 14 hrs Normal [facility] Comment on above: Order Comment: Speci men Type: BLOOD SPECIMENOrdering Facility: [facility] Address: [address] [place] [address] Performed By: #### 2 4331-1 ####[facility]ATORYCLIA [id number] [address] STATES OF [facility] COREYMAY[facility] MEMORIAL HOSPITALWNCLIA [id number] [address] STATES OF [place]#### 48797-4 ####[facility]ITALWNCLIA [id number] [address] [place]#### 3016-3 ####[facility]ATORYCLIA [id number] [place] [address] [place] Triglyceride [Mass/Vol] 182 mg/dL High <150 [facility] Comment on above: Order Comment: Speci men Type: BLOOD SPECIMENOrdering Facility: [facility] Address: [address] [place] [address] Result Comment: <150 mg/dL, Normal 150-199 mg/dL, Borderline high 200-499 mg/dL, High >499 mg/dL, Very high Performed By: #### 2 4331-1 ####[facility] LABORATORYCLIA [id number] [address] [id number] [address] OF [facility]#### 04293-0 ####[facility]ITALLIA [id number] [address]#### 3016-3 ####[facility] LABORATORYCLIA [id number] [address] [place] TSH SerPl-aCncon 09-08-2024 TSH Qn 0.154 m[IU]/L Low 0.270-4.200 [facility] Comment on above: Order Comment: Speci men Type: BLOOD SPECIMENOrdering Facility: [facility] Address: [address] [place] [address] Performed By: #### 2 4331-1 ####[facility] LABORATORYCLIA [id number] [address] [id number] [address]#### 21573-1 ####[facility]ITALLIA [id number] [address]#### 3016-3 ####[facility] LABORATORYCLIA [id number] [address] OF [place] Louis 04-28-2024 SHANNONN Telephone (KANDIMWS) PATY [id number]) 1940 F Date Time Provider Department 04/28/24 RUSS BARONE During your visit today, we recorded the [...] AGE 6MO-64YR, TRIVALENT (AFLURIA, FLULAVAL, FLUVIRIN, FLUZONE) [[id number]] Order #: [id number] Prescriptions as of 04/29/2024 - losartan (COZAAR) [...] Encounter Status:Closed by KARRIE RUSSO on 04/29/24 Normal [facility] Louis 03-19-2024 LALITO Telephone (ELSA) PATY RIOS ([id number]) 1940 F Date Time Provider Department 03/19/24 [...] HgbA1c to further evaluate this. Thank you MARCUS Chaves Mary, LPN 03/19/2024 10:12 AM Signed Called and left message for patient to call office back for results Lyndsay Dunn LPN March 19, 2024 10:12 AM Muriel Child LPN 03/19/2024 3:08 PM Signed Patient returned call and went over results, notes from Martha Funk MANAGER SUPPLY CHAIN with understanding. Patient said she was not fasting for the lab work. Martha Funk APRN.CNP 03/22/2024 7:20 AM Signed Then no concerns on blood work. Thank you Martha Funk, RISK MANAGEMENT DIRECTOR.EQUIPMENT MONITOR PHOTOTYPESETTING Allergies As of Date: 03/19/2024 Noted Allergy [...] Status:Closed by JO THOMAS on 03/22/24 Normal [facility] Basic metabolic 2000 panelon 03-18-2024 Anion gap [Moles/Vol] 11 mmol/L Normal 8-15 [facility] Comment on above: Order Comment: Speci men Type: BLOOD SPECIMENOrdering Facility: [facility] Address: [address] [place] [address] Performed By: #### 3 051-0, 99954-1, 302-7, 3016-3 ####[facility] LABCLIA [id number] [place] [address] [place] Calcium [Mass/Vol] 9.5 mg/dL Normal 8.5-10.2 [facility] Comment on above: Order Comment: Speci men Type: BLOOD SPECIMENOrdering Facility: [facility] Address: [address] [place] [address] Performed By: #### 3 051-0, 97692-0, 7, 3015-3 ####[facility] LABCLIA [id number] [place] [address] [place] Chloride [Moles/Vol] 99 mmol/L Normal 98-107 [facility] Comment on above: Order Comment: Speci men Type: BLOOD SPECIMENOrdering Facility: [facility] Address: [address] [place] [address] Performed By: #### 3 051-0, 66021-9, 3023-7, 6-3 ####[facility] LABCLIA [id number] [address] [address] [place] CO2 [Moles/Vol] 30 mmol/L Normal 22-30 [facility] Comment on above: Order Comment: Speci men Type: BLOOD SPECIMENOrdering Facility: [facility] Address: [address] [place] [address] Performed By: #### 3 051-0, 14528-4, 302-7, 3016-3 ####[facility] LABCLIA [id number] [place] [address] [place] Creatinine [Mass/Vol] 0.70 mg/dL Normal 0.58-0.96 [facility] Comment on above: Order Comment: Tomasz mast Type: BLOOD SPECIMENOrdering Facility: [facility] Address: [address] [place] [address] Performed By: #### 3 051-0, 38977-8, 3024-7, 3016-3 ####[facility] LABIA [id number] [place] [address] [place] Creatinine and Glomerular filtration rate.predicted panel (S/P/Bld) 85 mL/min/1.73m??? Normal >=60 [facility] Comment on above: Order Comment: Tomasz mast Type: BLOOD SPECIMENOrdering Facility: [facility] Address: [address] [place] [address] Result Comment: Briana mated Glomerular Filtration Rate [...] actual GFR. Performed By: #### 3 051-0, 01944-7, 3024-7, 6-3 ####[facility] LABIA [id number] [place] [address] [place] Glucose [Mass/Vol] 113 mg/dL High 74-99 [facility] Comment on above: Order Comment: Tomasz men Type: BLOOD SPECIMENOrdering Facility: [facility] Address: [address] [place] [address] Result Comment: The [place] Diabetes Association (ADA) provides guidance for cutoff [...] Standards of Medical Care in Diabetes 2016, [place] Diabetes Association. Diabetes Care. 2016.39(Suppl 1). Performed By: #### 3 051-0, 83013-1, 7, 3015-3 ####[facility] LABCLIA [id number] [place] [address] [place] Potassium [Moles/Vol] 4.2 mmol/L Normal 3.7-5.1 [facility] Comment on above: Order Comment: Speci men Type: BLOOD SPECIMENOrdering Facility: [facility] Address: [address] [place] [address] Performed By: #### 3 051-0, 06415-3, 3024-01, 3015-3 ####[facility] LABCLIA [id number] [place] [address] [place] Sodium [Moles/Vol] 140 mmol/L Normal 136-144 [facility] Comment on above: Order Comment: Speci men Type: BLOOD SPECIMENOrdering Facility: [facility] Address: [address] [place] [address] Performed By: #### 3 051-0, 67473-3, 3024-01, 3015-3 ####[facility] LABCLIA [id number] [place] [id number] [place] Urea nitrogen [Mass/Vol] 10 mg/dL Normal 7-21 [facility] Comment on above: Order Comment: Speci men Type: BLOOD SPECIMENOrdering Facility: [facility] Address: [address] [place] [address] Performed By: #### 3 051-0, 09901-0, 7, 3015-3 ####[facility] LABCLIA [id number] JOYCELYNJack [address] [address] [place] CNOVon 03-18-2024 CNOV Office Visit (INTMWS ) PATY RIOS ([id number]) 1940 F Date Time Provider Department 03/18/24 8:00 AM MARTHA FUNK During your visit today, we recorded the following information about you: Pulse Respiration Blood pressure Weight 76/minute 16/minute 122/68 48.4 kg Martha Funk APRN.EQUIPMENT MONITOR PHOTOTYPESETTING 03/18/2024 8:34 AM Signed CC: Patient presents [...] INSJ IO LENS PROSTH W/O ECP Comment: Phacoemulsification/In traocular Lens Insertion 2011: XCAPSL CTRC RMVL INSJ IO LENS PROSTH W/O ECP Comment: Phacoemulsification/In traocular Lens Insertion ALLERGIES Augmentin [Amoxicillin-Pot Clavulanate], Fosamax [...] Anxiety Screening Never done Covid-19 Vaccine( - season) due on 03/07/2024 Influenza Vaccine(1) [...] to brin (more content not included)... Normal [facility] T3Free SerPl-mCncon 03-18-20 24 Free T3 [Mass/Vol] 2.6 pg/mL Normal 2.3-4.1 [facility] Comment on above: Order Comment: Tomasz mast Type: BLOOD SPECIMENOrdering Facility: [facility] Address: [address] [place] [address] Performed By: #### 3 051-0, 63339-6, 3024-7, 3016-3 ####[facility] LABCLIA [id number] [facility] [id number] [place] [address] [place] T4 Free SerPl-mCncon 024 Free T4 [Mass/Vol] 1.6 ng/dL Normal 0.9-1.7 [facility] Comment on above: Order Comment: Speci men Type: BLOOD SPECIMENOrdering Facility: [facility] Address: [address] [place] [address] Performed By: #### 3 051-0, 57468-0, 3024-7, 3016-3 ####[facility] LABCLIA [id number] [place] [address] [place] TSH SerPl-aCncon 03-18-2024 TSH Qn 1.860 m[IU]/L Normal 0.270-4.200 [facility] Comment on above: Order Comment: Speci men Type: BLOOD SPECIMENOrdering Facility: [facility] Address: [address] [place], [place] [address] [place] [address] Performed By: #### 3 051-0, 56832-1, 3024-7, 3016-3 ####[facility] LABCLIA [id number] [address] [place] CNPVivian 03-06-2024 [facility] PATY RIOS ([id number]) 1940 F Date Time Provider Department 03/06/24 [facility] During your visit today, we recorded the following information about you: Stephanie García APRN.CNP 03/06/2024 1:04 PM Signed Called with patient informed that culture revealed shingles. GFR 72, started on Valtrex. Recommend to call ENT on Friday for evaluation. Tylenol/ibuprofen as needed for pain. Stephanie García APRN.EQUIPMENT MONITOR PHOTOTYPESETTING Allergies As of Date: 03/06/2024 Noted Allergy [...] Encounter Status:Closed by STEPHANIE GARCÍA on 03/06/24 [facility] CNOVon 03-05-2024 CNOV Office Visit (UCWSTR ) PATY RIOS ([id number]) 1940 F Date Time Provider Department 03/05/24 7:45 AM STEPHANIE GARCÍA [facility] During your visit today, we recorded the following information about you: Temperature Pulse Respiration Blood pressure 99.2 degrees 66/minute 18/minute 170/74 Weight 50.6 kg Stephanie García APRN.EQUIPMENT MONITOR PHOTOTYPESETTING 03/05/2024 8:46 AM Signed Subjective The history is provided by the patient. No freelance interpreter/translator was used. HPI Paty Rios is a [...] have confirmed and edited as necessary, the [facility] Review of Systems Constitutional: Negative for chills [...] 0 HSV1,2/VZV NAAT LESION [SQHSVVZV] Order #: [id number] FUTURE HSV1,2/VZV NAAT LESION [SQHSVVZV] Order #: [id number]. #:[id number] Prescriptions as of 03/05/2024 - ofloxacin (FLOXIN) [...] [I10] 04/01/2005 (more content not included)... Normal [facility] HSV+VZV DNA PRABHJOT+probe Ql (Un sp spec)on 03-05-2024 HSV 1 DNA PRABHJOT+probe Ql (Unsp spec) Not detected Normal Not Detected [facility] Comment on above: Order Comment: Speci men Type: SWABOrdering Facility: [facility] Address: [address] [place] [address] Performed By: #### 3 3027-4 ####[facility] LABCLIA [id number] [address] STATES [place] HSV 2 DNA PRABHJOT+probe Ql (Unsp spec) Not detected Normal Not Detected [facility] Comment on above: Order Comment: Speci men Type: SWABOrdering Facility: [facility] Address: [address] [place] [address] Performed By: #### 3 3027-4 ####[facility] LABCLIA [id number] [address] [place] VZV DNA PRABHJOT+probe Ql (Unsp spec) Detected Abnormal Not Detected [facility] Comment on above: Order Comment: Speci men Type: SWABOrdering Facility: [facility] Address: [address] [place] [address] Performed By: #### 3 3027-4 ####[facility] LABCLIA [id number] [address] [place] CNOVon 03-03-2024 CNOV Office Visit (WSTR ) PATY RIOS ([id number]) 1940 F Date Time Provider Department 03/03/24 2:30 PM CLAUDIO CAVAZOS [facility] During your visit today, we recorded the following information about you: Temperature Pulse Respiration Blood pressure 98.9 degrees 77/minute 21/minute 160/76 Weight 50.9 kg Claudio Cavazos APRN.EQUIPMENT MONITOR PHOTOTYPESETTING 03/03/2024 2:44 PM Signed Subjective Patient came [...] history is provided by the patient. No freelance interpreter/translator was used. Rash Review of Systems Constitutional: [...] INSJ IO LENS PROSTH W/O ECP Comment: Phacoemulsification/In traocular Lens Insertion 2011: XCAPSL CTRC RMVL INSJ IO LENS PROSTH W/O ECP Comment: Phacoemulsification/In traocular Lens Insertion ALLERGIES Augmentin [Amoxicillin-Pot Clavulanate], Fosamax [...] times when brands were switched. Claudio Cavazos APRN.EQUIPMENT MONITOR PHOTOTYPESETTING Allergies As of Date: 03/03/2024 Noted Allergy [...] once daily. (more content not included)... Normal [facility] Vital Signs Date Time Vital Sign Value Performing Clinician Facility 02-14-2025 14:56-0400 Body temperature 96.3 [degF] Dr. Russ Barone MD Work Phone: 3(129)545-388777 [place] [address] 02-14-2025 14:56-0400 Diastolic blood pressure 48 mm[Hg] Dr. Russ Barone MD Work Phone: 1(023)170-958077 [place] [address] 02-14-2025 14:56-0400 Heart rate 74 /min Dr. Russ Barone MD Work Phone: 5(305)252-588577 [place] [address] 02-14-2025 14:56-0400 Respiratory rate 17 /min Dr. Russ Barone MD Work Phone: 7(038)497-647077 [place] [address] 02-14-2025 14:56-0400 SaO2% (BldA) [Mass fraction] 98 % Dr. Russ Barone MD Work Phone: 1(837)242-559377 [place] [address] 02-14-2025 14:56-0400 Systolic blood pressure 135 mm[Hg] Dr. Russ Barone MD Work Phone: 3(477)113-896177 [place] [address] 02-14-2025 10:02-0400 Body height 152.[address] Russ Barone MD Work Phone: 0(918)290-030977 [place] [address] 02-14-2025 10:02-0400 Body mass index (BMI) [Ratio] 18.4 kg/m2 Dr. Russ Barone MD Work Phone: 7(341)163-436077 [place] [address] 02-14-2025 10:02-0400 Body weight 42.[address] Russ Barone MD Work Phone: 4(452)972-808677 [place] [address] 02-10-2025 18:37-0400 Diastolic blood pressure 59 mm[Hg] Dr. Russ Barone MD Work Phone: 8(964)265-151377 [place] [address] 02-10-2025 18:37-0400 Heart rate 80 /min Dr. Russ Barone MD Work Phone: 3(013)777-129877 [place] [address] 02-10-2025 18:37-0400 Respiratory rate 18 /min Dr. Russ Barone MD Work Phone: 1(451)310-801877 [place] [address] 02-10-2025 18:37-0400 SaO2% (BldA) [Mass fraction] 95 % Dr. Russ Barone MD Work Phone: 4(477)719-369728 [place] [address] 02-10-2025 18:37-0400 Systolic blood pressure 140 mm[Hg] Dr. Russ Barone MD Work Phone: 1(772)662-720777 [place] [address] 02-10-2025 16:38-0400 Body height 152.[address] Russ Barone MD Work Phone: 2(573)731-957877 [place] [address] 02-10-2025 16:38-0400 Body mass index (BMI) [Ratio] 19.1 kg/m2 Dr. Russ Barone MD Work Phone: 5(193)536-494577 [place] [address] 02-10-2025 16:38-0400 Body temperature 97.4 [degF] Dr. Russ Barone MD Work Phone: 3(404)827-028377 [place] [address] 02-10-2025 16:38-0400 Body weight 44.[address] Russ Barone MD Work Phone: 3(774)660-110477 [place] [address] 09-14-2024 08:00-0400 Body height 150 cm Russ Barone MD Work Phone: [facility] 09-14-2024 08:00-0400 Body mass index (BMI) [Ratio] 21.57 kg/m2 Russ Barone MD Work Phone: 0(836)261-533767 [place] [address] 09-14-2024 08:00-0400 Body weight 48.53 kg Russ Barone MD Work Phone: [facility] 09-14-2024 08:00-0400 Diastolic blood pressure 68 mm[Hg] Russ Barone MD Work Phone: [facility] 09-14-2024 08:00-0400 Heart rate 73 /min Russ Barone MD Work Phone: [facility] 09-14-2024 08:00-0400 SaO2% (BldA) [Mass fraction] 97 % Russ Barone MD Work Phone: [facility] 09-14-2024 08:00-0400 Systolic blood pressure 118 mm[Hg] Russ Barone MD Work Phone: [facility] 03-18-2024 07:59-0400 Body mass index (BMI) [Ratio] 20.84 kg/m2 Martha Older RISK MANAGEMENT DIRECTOR.EQUIPMENT MONITOR PHOTOTYPESETTING Work Phone: [facility] 03-18-2024 07:59-0400 Body weight 48.4 kg Martha Older RISK MANAGEMENT DIRECTOR.EQUIPMENT MONITOR PHOTOTYPESETTING Work Phone: [facility] 03-18-2024 07:59-0400 Diastolic blood pressure 68 mm[Hg] Martha Older RISK MANAGEMENT DIRECTOR.EQUIPMENT MONITOR PHOTOTYPESETTING Work Phone: [facility] 03-18-2024 07:59-0400 Heart rate 76 /min Martha Older RISK MANAGEMENT DIRECTOR.EQUIPMENT MONITOR PHOTOTYPESETTING Work Phone: [facility] 03-18-2024 07:59-0400 Respiratory rate 16 /min Martha Older RISK MANAGEMENT DIRECTOR.EQUIPMENT MONITOR PHOTOTYPESETTING Work Phone: [facility] 03-18-2024 07:59-0400 SaO2% (BldA) [Mass fraction] 94 % Martha Older RISK MANAGEMENT DIRECTOR.EQUIPMENT MONITOR PHOTOTYPESETTING Work Phone: [facility] 03-18-2024 07:59-0400 Systolic blood pressure 122 mm[Hg] Martha Older RISK MANAGEMENT DIRECTOR.EQUIPMENT MONITOR PHOTOTYPESETTING Work Phone: [facility] 03-05-2024 07:44-0400 Body mass index (BMI) [Ratio] 21.79 kg/m2 Stephanie Ricky RISK MANAGEMENT DIRECTOR.EQUIPMENT MONITOR PHOTOTYPESETTING Work Phone: [facility] 03-05-2024 07:44-0400 Body temperature 99.19 [degF] Stephanie Ricky RISK MANAGEMENT DIRECTOR.EQUIPMENT MONITOR PHOTOTYPESETTING Work Phone: [facility] 03-05-2024 07:44-0400 Body weight 50.6 kg Stephanie Ricky RISK MANAGEMENT DIRECTOR.EQUIPMENT MONITOR PHOTOTYPESETTING Work Phone: [facility] 03-05-2024 07:44-0400 Diastolic blood pressure 74 mm[Hg] Stephanie Ricky RISK MANAGEMENT DIRECTOR.EQUIPMENT MONITOR PHOTOTYPESETTING Work Phone: [facility] 03-05-2024 07:44-0400 Heart rate 66 /min Stephanie García APRN.EQUIPMENT MONITOR PHOTOTYPESETTING Work Phone: [facility] 03-05-2024 07:44-0400 Respiratory rate 18 /min Stephanie García APRN.EQUIPMENT MONITOR PHOTOTYPESETTING Work Phone: [facility] 03-05-2024 07:44-0400 SaO2% (BldA) [Mass fraction] 96 % Stephanie García APRN.EQUIPMENT MONITOR PHOTOTYPESETTING Work Phone: [facility] 03-05-2024 07:44-0400 Systolic blood pressure 170 mm[Hg] Stephanie García APRN.EQUIPMENT MONITOR PHOTOTYPESETTING Work Phone: [facility] 03-03-2024 14:27-0400 Body mass index (BMI) [Ratio] 21.92 kg/m2 Claudio Cavazos APRN.EQUIPMENT MONITOR PHOTOTYPESETTING Work Phone: [facility] 03-03-2024 14:27-0400 Body temperature 98.91 [degF] Claudio Cavazos APRN.EQUIPMENT MONITOR PHOTOTYPESETTING Work Phone: [facility] 03-03-2024 14:27-0400 Body weight 50.9 kg Claudio Cavazos APRN.EQUIPMENT MONITOR PHOTOTYPESETTING Work Phone: [facility] 03-03-2024 14:27-0400 Diastolic blood pressure 76 mm[Hg] Claudio Cavazos APRN.EQUIPMENT MONITOR PHOTOTYPESETTING Work Phone: [facility] 03-03-2024 14:27-0400 Heart rate 77 /min Claudio Cavazos APRN.EQUIPMENT MONITOR PHOTOTYPESETTING Work Phone: [facility] 03-03-2024 14:27-0400 Respiratory rate 21 /min Claudio Cavazos APRN.EQUIPMENT MONITOR PHOTOTYPESETTING Work Phone: [facility] 03-03-2024 14:27-0400 SaO2% (BldA) [Mass fraction] 97 % Claudio Cavazos APRN.EQUIPMENT MONITOR PHOTOTYPESETTING Work Phone: [facility] 03-03-2024 14:27-0400 Systolic blood pressure 160 mm[Hg] Claudio Cavazos APRN.EQUIPMENT MONITOR PHOTOTYPESETTING Work Phone: [facility] 09-17-2023 08:01-0400 Body weight 49.9 kg Martha Older RISK MANAGEMENT DIRECTOR.EQUIPMENT MONITOR PHOTOTYPESETTING Work Phone: [facility] 09-17-2023 08:01-0400 Diastolic blood pressure 76 mm[Hg] Martha Older RISK MANAGEMENT DIRECTOR.EQUIPMENT MONITOR PHOTOTYPESETTING Work Phone: [facility] 09-17-2023 08:01-0400 Heart rate 64 /min Martha Older RISK MANAGEMENT DIRECTOR.EQUIPMENT MONITOR PHOTOTYPESETTING Work Phone: [facility] 09-17-2023 08:01-0400 Respiratory rate 16 /min Martha Older RISK MANAGEMENT DIRECTOR.EQUIPMENT MONITOR PHOTOTYPESETTING Work Phone: [facility] 09-17-2023 08:01-0400 SaO2% (BldA) [Mass fraction] 97 % Martha Older RISK MANAGEMENT DIRECTOR.EQUIPMENT MONITOR PHOTOTYPESETTING Work Phone: [facility] 09-17-2023 08:01-0400 Systolic blood pressure 130 mm[Hg] Martha Older RISK MANAGEMENT DIRECTOR.EQUIPMENT MONITOR PHOTOTYPESETTING Work Phone: [facility] 03-19-2023 08:01-0400 Body weight 50.35 kg Martha Older RISK MANAGEMENT DIRECTOR.EQUIPMENT MONITOR PHOTOTYPESETTING Work Phone: [facility] 03-19-2023 08:01-0400 Diastolic blood pressure 76 mm[Hg] Martha Older RISK MANAGEMENT DIRECTOR.EQUIPMENT MONITOR PHOTOTYPESETTING Work Phone: [facility] 03-19-2023 08:01-0400 Heart rate 68 /min Martha Older RISK MANAGEMENT DIRECTOR.EQUIPMENT MONITOR PHOTOTYPESETTING Work Phone: [facility] 03-19-2023 08:01-0400 Respiratory rate 16 /min Martha Older RISK MANAGEMENT DIRECTOR.EQUIPMENT MONITOR PHOTOTYPESETTING Work Phone: [facility] 03-19-2023 08:01-0400 SaO2% (BldA) [Mass fraction] 97 % Martha Older RISK MANAGEMENT DIRECTOR.EQUIPMENT MONITOR PHOTOTYPESETTING Work Phone: [facility] 03-19-2023 08:01-0400 Systolic blood pressure 124 mm[Hg] Martha Older RISK MANAGEMENT DIRECTOR.EQUIPMENT MONITOR PHOTOTYPESETTING Work Phone: [facility] 09-16-2022 08:31-0400 Body height 152.4 cm Russ Barone MD Work Phone: [facility] 09-16-2022 08:31-0400 Body temperature 97.3 [degF] Russ Barone MD Work Phone: [facility] 09-16-2022 08:31-0400 Body weight 50.8 kg Russ Barone MD Work Phone: [facility] 09-16-2022 08:31-0400 Diastolic blood pressure 60 mm[Hg] Russ Barone MD Work Phone: [facility] 09-16-2022 08:31-0400 Heart rate 64 /min Russ Barone MD Work Phone: [facility] 09-16-2022 08:31-0400 Respiratory rate 12 /min Russ Barone MD Work Phone: [facility] 09-16-2022 08:31-0400 SaO2% (BldA) [Mass fraction] 97 % Russ Barone MD Work Phone: [facility] 09-16-2022 08:31-0400 Systolic blood pressure 120 mm[Hg] Russ Barone MD Work Phone: [facility] 03-18-2022 08:40-0400 Body weight 49.9 kg Russ Barone MD Work Phone: [facility] 03-18-2022 08:40-0400 Diastolic blood pressure 62 mm[Hg] Russ Barone MD Work Phone: [facility] 03-18-2022 08:40-0400 Heart rate 60 /min Russ Barone MD Work Phone: [facility] 03-18-2022 08:40-0400 Respiratory rate 16 /min Russ Barone MD Work Phone: [facility] 03-18-2022 08:40-0400 Systolic blood pressure 120 mm[Hg] Russ Barone MD Work Phone: [facility] Encounters Encounter Date Encounter Type Care Provider Facility Start: 02-14-2025 End: 02-14-2025 Emergency department patient visit Dr. Russ Barone MD Work Phone: -Emergency Department Work Phone: Start: 02-10-2025 End: 02-10-2025 Emergency department patient visit Dr. Russ Barone MD Work Phone: -Emergency Department Work Phone: Start: 02-09-2025 End: 02-09-2025 ambulatory [facility] Facility:[facility] Start: 12-08-2024 End: 12-09-2024 Refill Russ Barone MD Work Phone: [facility] [place] Comment on above: Refill Request Start: 10-18-2024 End: 10-20-2024 Refill Martha Older RISK MANAGEMENT DIRECTOR.EQUIPMENT MONITOR PHOTOTYPESETTING Work Phone: [facility] [place] Comment on above: Refill Request Start: 09-24-2024 End: 09-24-2024 Refill Martha Older RISK MANAGEMENT DIRECTOR.EQUIPMENT MONITOR PHOTOTYPESETTING Work Phone: [facility] [place] Comment on above: Refill Request Start: 09-23-2024 End: 09-23-2024 Refill Martha Older RISK MANAGEMENT DIRECTOR.EQUIPMENT MONITOR PHOTOTYPESETTING Work Phone: [facility] [place] Comment on above: Refill Request Start: 09-14-2024 End: 09-14-2024 ambulatory RUSS BARONE Facility:[facility] Start: 09-14-2024 End: 09-14-2024 Office outpatient visit 25 minutes Russ Barone MD Work Phone: [facility] [place] Comment on above: Medicare annual well ness visit, subsequent (Primary Dx); Encounter for immunization; Arthritis of carpometacarpal (CMC) joint of right thumb; Medication management; Hypothyroidism, unspecified type; Essential hypertension, benign Start: 09-14-2024 End: 09-14-2024 Patient encounter procedure Russ Barone MD Work Phone: [facility] Start: 09-10-2024 End: 11-10-2024 Follow-up encounter Martha Funk APRN.EQUIPMENT MONITOR PHOTOTYPESETTING Work Phone: [facility] [place] Start: 09-08-2024 End: 09-08-2024 [facility] Facility:[facility] Start: 09-08-2024 Patient encounter procedure MARTHA OLDER [facility] Start: 08-28-2024 End: 09-01-2024 Refill Vanessa Andrews RISK MANAGEMENT DIRECTOR.EQUIPMENT MONITOR PHOTOTYPESETTING Work Phone: [facility] Comment on above: Refill Request Start: 05-05-2024 End: 05-05-2024 Patient encounter procedure [facility] [place] Work Phone: [facility] [place] Start: 05-05-2024 End: 05-05-2024 ambulatory [facility] Nurse [place] Work Phone: Family [facility] [place] Start: 04-28-2024 [facility] Facility:[facility] Start: 04-28-2024 End: 04-29-2024 Telephone encounter Russ Barone MD Work Phone: [facility] [place] Comment on above: Orders; Immunization s (Flu vaccination) Start: 04-07-2024 End: 04-07-2024 ambulatory Martha Funk RISK MANAGEMENT DIRECTOR.EQUIPMENT MONITOR PHOTOTYPESETTING Work Phone: [facility] [place] Comment on above: Flu shot Start: 03-19-2024 End: 03-22-2024 Telephone encounter Martha Funk RISK MANAGEMENT DIRECTOR.EQUIPMENT MONITOR PHOTOTYPESETTING Work Phone: [facility] [place] Comment on above: Results Start: 03-18-2024 End: 03-18-2024 ambulatory [facility] Facility:[facility] Start: 03-18-2024 End: 03-18-2024 Patient encounter procedure Martha Funk RISK MANAGEMENT DIRECTOR.EQUIPMENT MONITOR PHOTOTYPESETTING Work Phone: [facility] [place] Comment on above: Essential hypertensi on, benign (Primary Dx); Hypothyroidism, unspecified type; Herpes zoster without complication; Annual physical exam Start: 03-06-2024 End: 03-06-2024 Telephone encounter Stephanie García RISK MANAGEMENT DIRECTOR.EQUIPMENT MONITOR PHOTOTYPESETTING Work Phone: [place] [facility] Comment on above: Results Start: 03-05-2024 End: 03-05-2024 [facility] Start: 03-05-2024 End: 03-05-2024 Patient encounter procedure Stephanie García RISK MANAGEMENT DIRECTOR.EQUIPMENT MONITOR PHOTOTYPESETTING Work Phone: [place] [facility] Comment on above: Oral lesion (Primary Dx); Left ear pain Start: 03-03-2024 End: 03-03-2024 Refill Manasa Nikolai RISK MANAGEMENT DIRECTOR.EQUIPMENT MONITOR PHOTOTYPESETTING Work Phone: [facility] Comment on above: Refill Request Hives (Primary Dx) Start: 09-17-2023 End: 09-17-2023 Patient encounter procedure Martha Funk RISK MANAGEMENT DIRECTOR.EQUIPMENT MONITOR PHOTOTYPESETTING Work Phone: [facility] [place] Comment on above: Medicare annual well ness visit, subsequent (Primary Dx); Hypothyroidism, unspecified type; Essential hypertension, benign; Mixed hyperlipidemia; Medication management Start: 09-03-2023 Refill Martha Funk RISK MANAGEMENT DIRECTOR .[facility] Work Phone: [place] [facility] Comment on above: Refill Request Start: 03-19-2023 End: 03-19-2023 Patient encounter procedure Martha Funk RISK MANAGEMENT DIRECTOR.EQUIPMENT MONITOR PHOTOTYPESETTING Work Phone: [facility] [place] Comment on above: Essential hypertensi on, benign (Primary Dx); Mixed hyperlipidemia; Hypothyroidism, unspecified type; Need for influenza vaccination; Annual physical exam Start: 03-18-2023 Telephone encounter Claudio Cavazos APRN.[facility] Work Phone: [facility] Comment on above: Results Start: 03-05-2023 Get Medical Advice Jarocho Antonio MD Work Phone: [place] [facility] Comment on above: refill Losartan Start: 09-16-2022 End: 09-16-2022 Patient encounter procedure Russ Barone MD Work Phone: [facility] [place] Comment on above: Elevated MCV (Primar y Dx); Hypothyroidism, unspecified type; Essential hypertension, benign; Mixed hyperlipidemia Start: 09-14-2022 Telephone encounter Russ rodriguez MD Work Phone: [facility] [place] Comment on above: Results Start: 03-18-2022 End: 03-18-2022 Patient encounter procedure Russ Barone MD Work Phone: [facility] [place] Comment on above: Essential hypertensi on, benign (Primary Dx); Need for influenza vaccination; Mixed hyperlipidemia; Hypothyroidism, unspecified type; Elevated blood sugar Start: 03-05-2022 ambulatory Russ Santiago Work Phone: [facility] [place] Start: 10-04-2021 Refill Cedric MCPHERSONEQUIPMENT MONITOR PHOTOTYPESETTING Work Phone: [facility] [place] Comment on above: Refill Request Procedures Date Procedure Procedure Detail Performing Clinician Start: 02-14-[address] Russ Barone MD Work Phone: Start: 02-10-2025 Urnls dip stick/tabl et reagent auto microscopy Dr. Russ Barone MD Work Phone: Start: 02-10-[address] Russ Barone MD Work Phone: Start: 02-10-2025 Computed tomography of abdomen and pelvis with intravenous contrast Dr. Russ Barone MD Work Phone: Start: 03-19-2023 INFLUENZA VACCINE, A GE 6 MO - 64 YR, QUADRIVALENT (AFLURIA, FLULAVAL, FLUZONE) Martha Funk APRNDaryaEQUIPMENT MONITOR PHOTOTYPESETTING Work Phone: Start: 03-18-2022 INFLUENZA VACCINE QUADRIVALENT 6 MO - 64 YRS IM Russ Barone MD Work Phone: Plan of Treatment Date Care Activity Detail Author Start: 09-09-2027 Diabetes Screening [facility] Start: 03-18-2027 Diabetes Screening [facility] Start: 09-09-2026 Diabetes Screening [facility] Start: 09-11-2025 DIABETES SCREEN DIABETES SCREEN [facility] Start: 09-11-2025 Diabetes Screening Diabetes Screenin g [facility] Start: 03-21-2025 End: 03-21-2025 Patient encounter procedure 03/21/2025 9:00 AM EDT Office Visit [facility] [place] [address] [place] [address] Russ Barone MD [address] [place] [address] 6 month follow up [facility] [place] Comment on above: 6 month follow up Start: 03-18-2025 Covid-19 Vaccine () Covid-19 Vaccine () [facility] Comment on above: Postponed from 03/07 (Declined at this time) Start: 03-18-2025 Covid-19 Vaccine () Covid-19 Vaccine () [facility] Comment on above: Postponed from 03/07 (Declined at this time) Start: 02-14-2025 [facility] Start: 02-10-2025 [facility] Start: 01-03-2025 Influenza vaccination Influenza Vacc ine (#1) [facility] Comment on above: Postponed from 03/07 (Declined at this time) Start: 09-16-2024 RSV Vaccine (1 - 1-d ose 60+ series) RSV Vaccine (1 - 1-dose 60+ series) [facility] Comment on above: Postponed from 08/12 (Declined at this time) Start: 09-16-2024 RSV Vaccine (1 - 1-d ose 75+ series) RSV Vaccine (1 - 1-dose 75+ series) [facility] Comment on above: Postponed from 08/12 (Declined at this time) Start: 09-14-2024 End: 09-14-2024 Patient encounter procedure 09/14/2024 8:00 AM EDT Office Visit [facility] [place] [address] [place] [address] Russ Barone MD [address] [place] [id number] Medicare Wellness [facility] [place] Comment on above: Medicare Wellness Start: 09-10-2024 DIABETES SCREEN DIABETES SCREEN [facility] Start: 09-08-2024 End: 09-08-2024 ambulatory 09/08/2024 8:45 AM EST Results Only [place] [facility] Draw Station [address] [place] [address] [place] [facility] Start: 09-06-2024 End: 12-06-2024 CBC panel - Blood by Automated count COMPLETE BLOOD COUNT Lab Routine Annual physical exam Expected: 09/06/2024 (Approximate), Expires: 12/06/2024 [facility] Comment on above: Expected: 09/06/2024 (Approximate), Expires: 12/06/2024 Start: 09-06-2024 End: 12-06-2024 Comprehensive metabolic 2000 panel - Serum or Plasma COMPREHENSIVE METABOLIC PANEL Lab Routine Annual physical exam Expected: 09/06/2024 (Approximate), Expires: 12/06/2024 [facility] Comment on above: Expected: 09/06/2024 (Approximate), Expires: 12/06/2024 Start: 09-06-2024 End: 12-06-2024 Lipid 1996 panel - Serum or Plasma LIPID PANEL BASIC Lab Routine Annual physical exam Expected: 09/06/2024 (Approximate), Expires: 12/06/2024 [facility] Comment on above: Expected: 09/06/2024 (Approximate), Expires: 12/06/2024 Start: 09-06-2024 End: 12-06-2024 Thyrotropin [Units/volume] in Serum or Plasma THYROID STIMULATING HORMONE Lab Routine Hypothyroidism, unspecified type Expected: 09/06/2024 (Approximate), Expires: 12/06/2024 [facility] Comment on above: Expected: 09/06/2024 (Approximate), Expires: 12/06/2024 Start: 05-05-2024 End: 05-05-2024 Patient encounter procedure 05/05/2024 3:20 PM EDT Immunization [facility] [place] [address] [place] [address] [place] Immun[facility] Nurse [address] [place] [address] Flu vaccine (regular dose) [facility] [place] Comment on above: Flu vaccine (regular dose) Start: 03-19-2024 Covid-19 Vaccine () Covid-19 Vaccine () [facility] Comment on above: Postponed from 03/07 (Declined at this time) Start: 03-19-2024 Covid-19 Vaccine (6 - Moderna series) Covid-19 Vaccine (6 - Moderna series) [facility] Comment on above: Postponed from 08/26 (Declined at this time) Start: 03-19-2024 Shingrix Vaccine (2 of 3) Núñez grix Vaccine (2 of 3) [facility] Comment on above: Postponed from 06/13 (Declined at this time) Start: 03-19-2024 Urine microalbumin profile DTa P,Tdap,Td Vaccine (1 - Tdap) [facility] Comment on above: Postponed from 04/09 (Declined at this time) Start: 03-18-2024 End: 06-17-2024 Basic metabolic 2000 panel - Serum or Plasma [facility] Comment on above: Expected: 03/18/2024 , Expires: 06/17/2024 Start: 03-18-2024 End: 06-17-2024 Thyrotropin [Units/volume] in Serum or Plasma [facility] Work Phone: Comment on above: Expected: 03/18/2024 , Expires: 06/17/2024 Start: 03-18-2024 End: 06-17-2024 Thyroxine (T4) free [Mass/volume] in Serum or Plasma [facility] Comment on above: Expected: 03/18/2024 , Expires: 06/17/2024 Start: 03-18-2024 End: 06-17-2024 Triiodothyronine (T3) Free [Mass/volume] in Serum or Plasma [facility] Comment on above: Expected: 03/18/2024 , Expires: 06/17/2024 Start: 03-18-2024 End: 03-18-2024 Patient encounter procedure 03/18/2024 8:00 AM EDT Office Visit [facility] [place] [address] [place] [address] Martha Funk APRN.EQUIPMENT MONITOR PHOTOTYPESETTING [address] [place] [address] 6 month follow up [facility] [place] Comment on above: 6 month follow up Start: 03-07-2024 Influenza vaccination Influenza Vacc ine (#1) [facility] Start: 03-05-2024 End: 06-04-2024 Herpes simplex virus+Varicella zoster virus DNA [Presence] in Unspecified specimen by PRABHJOT with probe detection HSV1,2/VZV NAAT LESION Lab Routine Oral lesion Expected: 03/05/2024, Expires: 06/04/2024 [facility] Work Phone: Comment on above: Expected: 03/05/2024 , Expires: 06/04/2024 Start: 10-18-2023 End: 01-17-2024 Thyrotropin [Units/volume] in Serum or Plasma TSH BLD Lab Routine Hypothyroidism, unspecified type Medication management Expected: 10/18/2023 (Approximate), Expires: 01/17/2024 [facility] Work Phone: Comment on above: Expected: 10/18/2023 (Approximate), Expires: 01/17/2024 Start: 10-18-2023 End: 01-17-2024 Thyroxine (T4) free [Mass/volume] in Serum or Plasma T4 FREE/FREE THYROX Lab Routine Hypothyroidism, unspecified type Medication management Expected: 10/18/2023 (Approximate), Expires: 01/17/2024 [facility] Work Phone: Comment on above: Expected: 10/18/2023 (Approximate), Expires: 01/17/2024 Start: 09-09-2023 End: 11-09-2023 CBC panel - Blood by Automated count CBC Lab Routine Annual physical exam Essential hypertension, benign Expected: 09/09/2023 (Approximate), Expires: 11/09/2023 [facility] Work Phone: Comment on above: Expected: 09/09/2023 (Approximate), Expires: 11/09/2023 Start: 09-09-2023 End: 11-09-2023 Comprehensive metabolic 2000 panel - Serum or Plasma COMP METABOLIC PANEL Lab Routine Annual physical exam Essential hypertension, benign Mixed hyperlipidemia Expected: 09/09/2023 (Approximate), Expires: 11/09/2023 [facility] Work Phone: Comment on above: Expected: 09/09/2023 (Approximate), Expires: 11/09/2023 Start: 09-09-2023 End: 11-09-2023 Lipid 1996 panel - Serum or Plasma LIPID PANEL BASIC Lab Routine Annual physical exam Mixed hyperlipidemia Expected: 09/09/2023 (Approximate), Expires: 11/09/2023 [facility] Work Phone: Comment on above: Expected: 09/09/2023 (Approximate), Expires: 11/09/2023 Start: 09-09-2023 End: 11-09-2023 Thyrotropin [Units/volume] in Serum or Plasma TSH BLD Lab Routine Annual physical exam Hypothyroidism, unspecified type Expected: 09/09/2023 (Approximate), Expires: 11/09/2023 [facility] Work Phone: Comment on above: Expected: 09/09/2023 (Approximate), Expires: 11/09/2023 Start: 03-07-2023 Influenza vaccination INFLUENZA (#1) [facility] Start: 09-16-2022 End: 11-16-2022 Cobalamin (Vitamin B12) [Mass/volume] in Serum or Plasma VITAMIN B12 BLOOD Lab Routine Elevated MCV Expected: 09/16/2022, Expires: 11/16/2022 [facility] Work Phone: Comment on above: Expected: 09/16/2022 , Expires: 11/16/2022 Start: 09-16-2022 End: 11-16-2022 Thyrotropin [Units/volume] in Serum or Plasma TSH BLD Lab Routine Hypothyroidism, unspecified type Expected: 09/16/2022, Expires: 11/16/2022 [facility] Work Phone: Comment on above: Expected: 09/16/2022 , Expires: 11/16/2022 Start: 09-15-2022 End: 11-15-2022 CBC W Auto Differential panel - Blood CBC + DIFF Lab Routine Essential hypertension, benign Expected: 09/15/2022, Expires: 11/15/2022 [facility] Work Phone: Comment on above: Expected: 09/15/2022 , Expires: 11/15/2022 Start: 09-15-2022 End: 11-15-2022 Comprehensive metabolic 2000 panel - Serum or Plasma COMP METABOLIC PANEL Lab Routine Essential hypertension, benign Expected: 09/15/2022, Expires: 11/15/2022 [facility] Work Phone: Comment on above: Expected: 09/15/2022 , Expires: 11/15/2022 Start: 09-15-2022 End: 11-15-2022 Lipid 1996 panel - Serum or Plasma LIPID PANEL BASIC Lab Routine Essential hypertension, benign Expected: 09/15/2022, Expires: 11/15/2022 [facility] Work Phone: Comment on above: Expected: 09/15/2022 , Expires: 11/15/2022 Start: 08-26-2022 COVID-19 VACCINE (6 - Moderna series) COVID-19 VACCINE (6 - Moderna series) [facility] Start: 03-07-2022 Influenza vaccination INFLUENZA (#1) [facility] Start: 03-05-2022 End: 05-05-2022 SCHEDULE LAB TESTING SCHEDULE LAB TESTING Lab Routine Expected: 03/05/2022, Expires: 05/05/2022 [facility] Work Phone: Comment on above: Expected: 03/05/2022 , Expires: 05/05/2022 Start: 03-05-2022 End: 05-05-2022 Thyrotropin [Units/volume] in Serum or Plasma TSH BLD Lab Routine Hypothyroidism Expected: 03/05/2022, Expires: 05/05/2022 [facility] Work Phone: Comment on above: Expected: 03/05/2022 , Expires: 05/05/2022 Start: 09-03-2021 COVID-19 VACCINE (4 - Booster for Moderna series) COVID-19 VACCINE (4 - Booster for Moderna series) [facility] Start: 2013 RSV Vaccine (1 - 1-d ose 75+ series) RSV Vaccine (1 - 1-dose 75+ series) [facility] Start: 06-13-2011 SHINGRIX VACCINE (2 of 3) NÚÑEZ GRIX VACCINE (2 of 3) [facility] Start: 04-09-2006 Urine microalbumin profile [facility] Start: 1998 RSV Vaccine (1 - 1-d ose 60+ series) RSV Vaccine (1 - 1-dose 60+ series) [facility] Start: 1956 Anxiety Screening Anxiety Screening [facility] Iiv3 vaccine split v irus 0.5 ml dosage im use INFLUENZA VACCINE, AGE 6MO-64YR, TRIVALENT (AFLURIA, FLULAVAL, FLUVIRIN, FLUZONE) Immunization/Injection Routine Need for influenza vaccination Ordered: 04/28/2024 [facility] Work Phone: Comment on above: Ordered: 04/28/2024 Microscopic urinalysis [facility] Organism count, microscopic method [facility] Patient Education [facility] Work Phone: Urine microscopy: epithelial cells [facility] Urine microscopy: re d cells [facility] White blood cell count [facility] Immunizations Immunization Date Immunization Notes Care Provider Grady hathaway 05-05-2024 influenza, seasonal, injectable Immunization [place] Work Phone: [facility] 03-19-2023 influenza, injectabl e, quadrivalent, contains preservative Martha Funk APRN.EQUIPMENT MONITOR PHOTOTYPESETTING Work Phone: [facility] 03-19-2023 influenza virus vaccine, unspecified formulation Manasa Menchaca APRN.EQUIPMENT MONITOR PHOTOTYPESETTING Work Phone: [facility] 03-18-2022 influenza, injectabl e, quadrivalent, contains preservative Russ Barone MD Work Phone: [facility] Work Phone: 03-29-2021 influenza, high dose seasonal, preservative-free Cedric Stout APRN.EQUIPMENT MONITOR PHOTOTYPESETTING Work Phone: [facility] 08-24-2020 COVID-19 vaccine, fu ll dose (MODERNA) Cedric Stout APRN.EQUIPMENT MONITOR PHOTOTYPESETTING Work Phone: [facility] 07-27-2020 COVID-19 vaccine, fu ll dose (MODERNA) Cedric Stout APRN.[facility] Work Phone: [facility] 03-14-2020 influenza, high dose seasonal, preservative-free Cedric Stout APRN.EQUIPMENT MONITOR PHOTOTYPESETTING Work Phone: [facility] Work Phone: 04-11-2018 influenza, injectabl e, quadrivalent, contains preservative Cedric Stout APRN.EQUIPMENT MONITOR PHOTOTYPESETTING Work Phone: [facility] 03-24-2017 influenza, high dose seasonal, preservative-free Cedric Stout APRN.[facility] Work Phone: [facility] 05-06-2016 pneumococcal conjuga te vaccine, 13 valent Cedric Stout APRN.[facility] Work Phone: [facility] Work Phone: 03-22-2016 influenza, high dose seasonal, preservative-free Cedric Stout APRN.EQUIPMENT MONITOR PHOTOTYPESETTING Work Phone: [facility] 05-09-2015 influenza, high dose seasonal, preservative-free Cedric Sotut APRN.[facility] Work Phone: [facility] Work Phone: 05-16-2012 influenza virus vaccine, unspecified formulation Cedric Stout APRN.[facility] Work Phone: [facility] Work Phone: 04-18-2011 zoster vaccine, live Cedric rojo APRN.EQUIPMENT MONITOR PHOTOTYPESETTING Work Phone: [facility] 05-05-2007 influenza virus vaccine, unspecified formulation Cedric Stout APRN.[facility] Work Phone: [facility] Work Phone: 04-08-2006 tetanus and diphther ia toxoids, adsorbed, preservative free, for adult use (2 Lf of tetanus toxoid and 2 Lf of diphtheria toxoid) Cedric Stout APRN.EQUIPMENT MONITOR PHOTOTYPESETTING Work Phone: [facility] Work Phone: 05-16-2005 influenza virus vaccine, unspecified formulation Cedric Stout APRN.[facility] Work Phone: [facility] Work Phone: 11-13-2003 pneumococcal polysaccharide vaccine, 23 valent Cedric Stout APRN.[facility] Work Phone: [facility] Work Phone: 04-03-1998 pneumococcal polysaccharide vaccine, 23 valent Cedric Stout APRN.[facility] Work Phone: [facility] Work Phone: 10-19-1996 tetanus and diphther ia toxoids, adsorbed, preservative free, for adult use (2 Lf of tetanus toxoid and 2 Lf of diphtheria toxoid) Cedric Stout APRN.[facility] Work Phone: [facility] Work Phone: 09-15-1972 tetanus and diphther ia toxoids, adsorbed, preservative free, for adult use (2 Lf of tetanus toxoid and 2 Lf of diphtheria toxoid) Cedric Stout APRN.[facility] Work Phone: [facility] Work Phone: Payers Date Payer Category Payer Self-pay 2014 Medicare (Managed Care) PRIMETIM E [id number] 2014 Unknown PRIMETIME [employer]IMET [employer] HMO POS [id number] 2014-Present [phone] [address] [place] [address] [facility] [id number] 2014 Unknown [id number] 2014 Unknown [id number] Medicare Unknown [id number] Unknown [id number] Social History Date Type Detail Facility Start: 04-18-2011 End: 02-14-2025 Tobacco smoking status NHIS Never smoked tobacco [facility] Start: 09-12-2021 End: 03-05-2024 Alcohol intake Current non-drinker of alcohol (finding) [facility] Start: 09-05-2021 End: 09-09-2022 History SDOH Alcohol Frequency 1 [facility] Start: 09-05-2021 End: 09-09-2022 History SDOH Alcohol Std Drinks 98 [facility] Start: 09-05-2021 End: 09-09-2022 History SDOH Social Connections Phone 4 [facility] Start: 09-05-2021 End: 09-09-2022 History SDOH Social Connections Membership 2 [facility] Start: 09-05-2021 End: 09-09-2022 History SDOH Social Connections Living 5 [facility] Start: 09-05-2021 End: 09-09-2022 History SDOH Physical Activity MPS 3 [facility] Start: 11-25-2019 Education 12 [facility] Start: 1940 Sex Assigned At Female C [facility] Start: 08-13-2021 End: 03-18-2022 Exposure to SARS-CoV-2 (event) Not sure [facility] Start: 04-18-2011 Tobacco use and exposure Smoke less tobacco non-user [facility] Start: 09-09-2022 History SDOH Alcohol Std Drinks 0 [facility] Start: 09-09-2022 End: 09-10-2023 History of Social function [facility] Start: 09-09-2022 End: 09-10-2023 Social connection and isolation panel [facility] How often do you att end episcopalian or yazdanism services? Patient refused [facility] Do you belong to any clubs or organizations such as episcopalian groups, unions, fraternal or athletic groups, or school groups? Yes [facility] Are you now , , , , never or living with a partner? [facility] How often to you hav e a drink containing alcohol? Never [facility] Do you feel stress - tense, restless, nervous, or anxious, or unable to sleep at night because your mind is troubled all the time - these days [OSQ] Not at all [facility] (I/We) worried wheth er (my/our) food would run out before (I/we) got money to buy more. Never true [facility] In the past 12 month s, was there a time when you were not able to pay the mortgage or rent on time? No [facility] Start: 03-02-2020 Gender identity Identifies as female gender (rizwana) [facility] Start: 03-02-2020 Sexual orientation Heterosexual (fanny hernandez) [facility] Functional Status Date Assessment Result Facility 11-01-2014 Are you deaf, or do you have serious difficulty hearing No 11/01/2014 3:20 PM Alaina Adkins LPN No [facility] 11-01-2014 Are you blind, or do you have serious difficulty seeing, even when wearing glasses No 11/01/2014 3:20 PM Alaina Adkins LPN No [facility] 11-01-2014 Do you have serious difficulty walking or climbing stairs Yes 11/01/2014 3:20 PM Alaina Adkins LPN Yes [facility] 11-01-2014 Do you have difficul ty dressing or bathing No 11/01/2014 3:20 PM Alaina Adkins LPN No [facility] 11-01-2014 Because of a physica l, mental, or emotional condition, do you have difficulty doing errands alone such as visiting a physician's office or shopping No 11/01/2014 3:20 PM Alaina Adkins LPN No [facility] Mental Status Date Assessment Result Facility 02-14-2025 Cognitive function Level Of Cons ciousness Awake;Alert;Appropriate;Fol lows Commands [facility] Work Phone: 11-01-2014 Because of a physica l, mental, or emotional condition, do you have serious difficulty concentrating, remembering, or making decisions No 11/01/2014 3:20 PM EDT Jovana Alaina Winchester, GIFTS OFFICER No [facility] Clinical Notes 10-04-2021 to 02-14-2025 Note Date & Type Note Facility 02-14-2025 Discharge summary [facility] 02-14-2025 Discharge summary Note Date/Time February 14, 2025 3:03pm [facility] Medical Records Department [address] [place] [address] Emergency Department Summary 02/14/25 MR#: [id number] Acct: [id number] Name: PATY RIOS Rep #:[id number] : 1940 84 From: Suhail Delacruz MD PCP: Dr. Russ Barone MD Status:REG E R Location: ED HPI History of Present Illness Chief Complaint: Weakness Detail of Chief Complaint: Abdominal pain, weakness, thirst Informant: patient and family (Son) Onset/Context/Timing Onset: Days Context: Sudden Onset Timing: Intermittent and Waxes and wanes Quality: Diarrhea and nausea without vomiting Location: GI Current Severity: Gone Maximum Severity: Moderate Worsened by: Proctitis Relieved by: Got better after prescribed levofloxacin and metronidazole Associated Symptoms Associated Symptoms: Thirst, abdominal discomfort, generalized weakness Narrative Narrative: Patient is a 84-year-old woman. She states she had diarrhea that started 2 weeks prior to her visit dated February 10. Patient's workup at that time was remarkable for an elevated white count of 19,000 with slight shift. Electrolytepanel is remarkable for BUN/creatinine of 29 and 1.2. Her BUN to creatinine ratio was 24:1. CT reveals diffusely thickened rectosigmoid colon with adjacentinflammatory changes. Patient presents because of poor appetite, thirst, nausea. She had a bowel movement this morning which was soft to mushy. It was not liquid. There is no blood or mucus. Patient has not taken any levofloxacin or metronidazole since Friday morning. She was told she does not have allergic reaction these meds that it is most likely adverse reaction side effect to the levofloxacin. She has not used anything that is contained alcohol including mouthwash. Patient denies dysuria, frequency, urgency or hematuria. Patient does endorse orthostatic symptoms as well as the dry mouth and thirst. Prior similar symptoms: Yes Recent Illness/Hospitalization: No PFSH PFSH Medical History Osteoarthritis Hyperglycemia Hypertension Hypothyroidism High blood cholesterol Colitis Home Medications ?Medication ?Instructions ?Recorded ?Last Taken ?Type levofloxacin 750 mg tablet 750 mg PO DAILY 7 days #7 t abs 02/10/25 02/12/25 Rx metronidazole 500 mg tablet 500 mg PO BID 7 days #14 t abs 02/10/25 02/12/25 Rx aspirin 81 mg tablet 81 mg PO DAILY 02/14/2502/04 History atenolol 50 mg tablet 50 mg PO DAILY 02/14/2502/04 History hydrochlorothiazide 12.5 mg capsule 12.5 mg PO DAILY 0 02/14/25 02/14/25 History levothyroxine 100 mcg tablet 100 mcg PO DAILY 02/14/25 02/14/25 History losartan 25 mg tablet 25 mg PO DAILY 02/14/2502/04 History meloxicam 15 mg tablet 15 mg PO DAILY pain 02/14/25 02/14/25 History ondansetron 4 mg disintegrating 4 mg PO Q8H PRN PRN Na usea #10 tabs 02/14/25 Unknown Rx tablet simvastatin 10 mg tablet 10 mg PO QHS 02/14/25 History Allergy/AdvReac Type Severity Reaction Status Date / Time amoxicillin Allergy Intermediate Hives Verified 02/10/25 16:40 levofloxacin AdvReac Abd Verified 02/14/25 10:04 cramps/diarrhea metronidazole (From Flagyl) AdvReac Abd Verified 02/14/25 10:04 cramps/diarrhea Family History no significant family his Surgical History no surgical history Social History (Updated 02/14/25 @ 14:[address] Suhail Delarcuz MD) household members: none Smoking Status: Never smoker ROS ROS ED Constitutional Constitutional ED: Reports weight loss and other Details: 8 pounds past 3 weeks ; Denies chills, fever(s), subjective or sweats Eyes Eyes: Denies blurry vision or change in vision ENT ENT ED: Denies ear pain, rhinorrhea or sore throat Cardiovascular Cardiovascular: Denies chest pain or palpitations Respiratory/Chest Respiratory/Chest: Denies cough, dyspnea or dyspnea on exertion Gastrointestinal Gastrointestinal: Reports abdominal pain and nausea; Denies constipation, diarrhea, melena or vomiting Genitourinary Genitourinary ED: Denies dysuria, hematuria or urinary frequency Musculoskeletal Musculoskeletal: Denies arthralgias or myalgias Integumentary Denies rash Neurologic Neurologic: Reports weakness Psychiatric Psychiatric: Denies anxiety or depression Endocrine Endocrinology: Denies cold intolerance or heat intolerance Hematologic/Lymphatic Hematologic/Lymphatic: Reports systems reviewed and no addt'l complaints, exceptas documented EXAM Physical Exam Const Vital Signs: 02/14/25 10:02 02/14/25 10:19 02/14/25 12:02 Temperature 96.3 F L Temperature Source Temporal Pulse Rate 61 66 Pulse Rate [Lying] Pulse Rate [Sitting (for 1 minute prior to obtaining)] Pulse Rate [Standing (for 1 minute prior to obtaining)] Respiratory Rate 12 18 Respiratory Pattern Normal Blood Pressure 119/63 130/48 H Blood Pressure [Lying] Blood Pressure [Sitting (for 1 minute prior to obtaining)] Blood Pressure [Standing (for 1 minute prior to obtaining)] Blood Pressure Mean 81 75 Blood Pressure Mean [Lying] Blood Pressure Mean [Sitting (for 1 minute prior to obtaining)] Blood Pressure Mean [Standing (for 1 minute prior to obtaining)] Pulse Ox 98 97 Oxygen Delivery Method Room Air Room Air 02/14/25 12:15 02/14/25 12:20 02/14/25 14:00 Temperature Temperature Source Pulse Rate 72 74 Pulse Rate [Lying] 71 Pulse Rate [Sitting (for 1 minute prior to obtaining)] 74 Pulse Rate [Standing (for 1 minute prior to obtaining)] 72 Respiratory Rate 16 17 Respiratory Pattern Blood Pressure 130/48 H 135/48 H Blood Pressure [Lying] 127/49 H Blood Pressure [Sitting (for 1 minute prior to obtaining)] 134/39 H Blood Pressure [Standing (for 1 minute prior to obtaining)] 130/48 H Blood Pressure Mean 75 77 Blood Pressure Mean [Lying] 75 Blood Pressure Mean [Sitting (for 1 minute prior to obtaining)] 70 Blood Pressure Mean [Standing (for 1 minute prior to obtaining)] 75 Pulse Ox 100 98 Oxygen Delivery Method Room Air Room Air Positive well nourished and well developed Constitutional Narrative: Patient is no distress. Orthostatic vital signs normal. Vital signs were noted. General Appearance ED: well developed; Negative for pallor HEENT Reports dry mucous membranes HEENT Narrative: Head is atraumatic no cephalic. Ears normal. Nares patent. Posterior pharynx is normal. Mouth ED: Yes dry mucous membranes Mouth: dry mucous membranes Eyes PERRL and EOMs intact bilaterally General Eye ED: Negative for pale conjunctiva or scleral icterus Chest Wall inspection of chest normal and palpation of chest normal Resp normal respiratory effort and clear to auscultation bilaterally Cardio regular rate, regular rhythm, S1 normal heart sound, S2 normal heart sound and no murmurs GI non-tender and no masses; Negative for non-distended or hepatosplenomegaly GI Narrative: Bowel sounds are slightly diminished. She is tympanitic to percussion. Palpation: soft Back/Spine Back/Spine Narrative: Inspection of the back is normal. Extremity normal to inspection General Extremety ED: Negative for edema or tenderness General Extremity: Negative for edema Neuro oriented x3, CN's II-XII intact bilaterally and no sensory deficits noted Sensorium / Orientation: alert Motor Exam: strength 5/5 throughout Psych mental status grossly normal Skin no rashes or lesions noted, no wounds and No skin turgor normal General Skin Exam: Negative for elasticity normal, jaundice or pallor MDM MDM MDM Narrative Medical decision making narrative: Prior workup was reviewed. Will obtain BMP to assess BUN to creatinine ratio aswell as renal function and electrolytes and specifically evaluate for hypokalemia. CBC to assess white count since it was elevated. Patient received1 L of normal saline wide open. Patient was informed of her results. She did pass p.o. challenge which was a full diet. She has eaten more than she has in days. Patient and family are happy with this. Her white count is still elevated. This is nonspecific. Since she is no longer having diarrhea she was not instructed to resume the antibiotics. She was told that she is dehydrated and needs to drink more fluids. Lab Data Attestation: I reviewed the patient's lab results. Lab results narrative: White count is elevated 20,000 with mild shift. There is no bandemia. H&H and indices are normal. BUN and creatinine are 32 and 1.08 with a BUN to creatinineratio approximately 30-1. Estimated GFR is 50. This is an improvement from laboratory results obtained February 10. Patient did urinate after fluid bolus. She does feel better. She is now smiling. Labs: Laboratory Results - last 24 hr 02/14/25 10:30 WBC 20.0 H RBC 4.16 L Hgb 13.3 Hct 40.2 MCV 96.6 MCH 32.0 MCHC 33.1 RDW Std Deviation 49.2 H RDW Coeff of Anay 13.9 Plt Count 701 H MPV 7.7 Immature Gran % (Auto) 0.900 Neut % (Auto) 86.0 H Lymph % (Auto) 5.3 L Ocean % (Auto) 7.3 Eos % (Auto) 0.1 Baso % (Auto) 0.4 Absolute Neuts (auto) 17.2 H Absolute Lymphs (auto) 1.05 Nucleated RBC % 0 Sodium 140 Potassium 3.4 Chloride 98 Carbon Dioxide 20.7 L Anion Gap 21 H BUN 32 H Creatinine 1.08 Estim Creat Clear Calc 25.26 L Est GFR (MDRD) Non-Af 50 L BUN/Creatinine Ratio 29.8 H Glucose 153 H Calcium 9.5 Discharge Plan Triage Chief Complaint: Weakness ED Provider: Suhail Delacruz Dx/Rx/DC Orders Clinical Impression: Prerenal azotemia, Leukocytosis, Elevated blood pressure reading with diagnosisof hypertension Instructions: ED Dehydration (Adult) Prescriptions: New ondansetron 4 mg tablet,disintegrating 4 mg PO Q8H PRN PRN (Reason: Nausea) Qty: 10 0RF No Action metronidazole 500 mg tablet 500 mg PO BID 7 Days Qty: 14 0RF Patient Comments: pt states hasn't taken because made her sick to her stomach levofloxacin 750 mg tablet 750 mg PO DAILY 7 Days Qty: 7 0RF Patient Comments: pt states hasn't taken because made her sick to her stomach meloxicam 15 mg tablet 15 mg PO DAILY simvastatin 10 mg tablet 10 mg PO QHS levothyroxine 100 mcg tablet 100 mcg PO DAILY losartan 25 mg tablet 25 mg PO DAILY hydrochlorothiazide 12.5 mg capsule 12.5 mg PO DAILY atenolol 50 mg tablet 50 mg PO DAILY aspirin 81 mg tablet 81 mg PO DAILY Primary Care Provider: Russ Barone Referrals: Russ Barone MD [Primary Care Provider] - 3-5 Days Print Language: Slovenian Disposition Disposition: Home, Self Care What to do if you have Problems For any increased pain, shortness of breath, bleeding, nausea or vomiting, chestpain, or any unexpected problems, contact your Primary Care Provider. Call [facility] ([phone]) or report to the closest Emergency Room. Call 911 if necessary. 02/14/25 1503 <Electronically signed by Suhail Delacruz MD> Cosigner Signature (if applicable): CC: Dr. Russ Barone MD ~ Signed [facility] Work Phone: [phone]) 555-281708-07-2025 Radiology Diagnostic study note [facility] Imaging Services [address] [place] [address] Abdomen/Pelvis W IV Cont ONLY MR#: [id number] Acct: [id number] Name: PATY RIOS Rep #: [id number] : 1940 F 84 From: Per Rubio MD PCP: Dr. Russ Barone MD Status: REG E R Study:Abdomen/Pelvis W IV Cont ONLY Date of E xam: 02/10/25 Exam# [id number] Ordering Dr: Elvira Moore PROCEDURE: ABDOMEN/PELVIS W IV CONT ONLY 02/10/2025 REASON FOR EXAM: DIARRHEA. TECHNIQUE: ABDOMEN/PELVIS W IV CONT ONLY Coronal and Sagittal reconstruction series were provided. CONTRAST: Isovue 370 VOLUME: 70 mL One or more dose reduction techniques were used (e.g., Automated exposure control, adjustment of the mA and/or kV according to patient size, use of iterative reconstruction technique. RADIATION DOSE SUMMARY: CTDlvol: 6.65, 5.92 mGy DLP: 275.42 mGycm COMPARISON: None. FINDINGS: LUNG BASES: No basilar airspace consolidation or pleural effusion. Minimal dependent atelectasis bilaterally. Coronary artery calcification. LIVER: Ill-defined hypodensity measuring 1.3 cm in segment 4B along the falciform ligament, possibly focalhepatic steatosis. GALLBLADDER: The gallbladder is completely contracted, limiting its evaluation. BILE DUCTS: Prominent intrahepatic and extrahepatic bile ducts, mildly dilated for patient'clif. The CBD measures up to 9.7 mm with rapid tapering at the level of the ampulla. No obstructing lesion seen. PANCREAS: Unremarkable. SPLEEN: Unremarkable. ADRENAL GLANDS: Unremarkable. KIDNEYS: The kidneys enhance symmetrically. Hypodense 3.6 mm right renal lesion, likely a cyst. No hydronephrosis or hydroureter. STOMACH AND BOWEL: Small hiatal hernia. Diffuse wall thickening of the sigmoid colon and rectum with adjacent fat stranding. No obstruction or perforation. Moderate colonic stool. 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 APPENDIX: Normal-appearing appendix. No CT evidence for appendicitis. RETRO/PERITONEUM: No free fluid. No free air. LYMPH NODES: Multiple small left periaortic lymph nodes. PELVIC ORGANS: Unremarkable urinary bladder and uterus. The ovaries are not well seen. VASCULATURE: No aortic aneurysm. Scattered calcified atherosclerosis. ABDOMINAL WALL AND SOFT TISSUES: Tiny fat containing umbilical hernia. BONES: No fracture or suspicious osseous abnormality. Degenerative changes of the spine and both hips. Mild/moderate lumbar levoscoliosis. CT/Abdomen/Pelvis W IV Cont ONLY IMPRESSION: 1. Diffusely thickened rectosigmoid colon with adjacent inflammatory changes, query acute proctocolitis. 2. Mildly dilated bile ducts. No obstructing lesion seen. A biliary strictureat the level of the ampulla is possible. Reading Location: [id number] CC: Dr. Russ Barone MD; ARIANA Leiva ~ Head Turbine Operator: Signed [facility]08-06-2025 NoteHNO ID: [id number] Author: MARTHA FUNK APRN.EQUIPMENT MONITOR PHOTOTYPESETTING Service: ? Author Type: Nurse Practitioner Type: Progress Notes Filed: 02/09/2025 18:38 Note Text: CC: Patient presents with: Diarrhea: Diarrhea x 1 week HPI Paty Rios is a 84 year old female who presents today for diarrhea for 10 days. Patient with intermittent diarrhea starting over 10 days ago which she started taking imodium for. Has had continuous diarrhea for 1 week after eating tomatoes fresh from a neighbors garden. Since eating the tomatoes has had liquid diarrhea every morning and every time she has eaten anything. Has continued the usage of imodium throughout this ordeal. On Friday, stool started to become less liquid but not formed. Currently still taking imodium. Describes the diarrhea as liquid brown. Reports decreased appetite as the only accompanying symptom. Denies any abdominal pain or cramping, nausea, vomiting, foul smelling stools, or bloody stools. Denies fever or chills, palpitations or dizziness, reports feeling weak as has not been able to eat much. Drinking Pedialyte and increased fluid intake to aid with hydration. States still has gallbladder. Denies travel, hiking, abnormal diet, new water usage, denies history of C.Diff or recent antibiotic usage. Has no pets. No known sick contacts. Patient has lost 10lbs since September, unintentional. States has lost 5lbs this week, contributes this to diarrhea. REVIEW OF SYSTEMS General: no fevers, no chills, no night sweats, no recurrent infections, no change in energy, and Positive for: weight loss Respiratory: no cough, no wheezing, no shortness of breath, no hemoptysis Cardiovascular: no chest pain, no chest pressure, no palpitations, and no swelling GI: Negative for abdominal discomfort, blood in stools or black stools, heart burn, nausea, vomiting and Positive for diarrhea for 10 days : No history of dysuria, frequency or incontinence Neurologic: No headache, weakness, numbness, tingling, neck stiffness, tremor, vertigo, dizziness, memory loss, syncope. PAST MEDICAL HISTORY [...] Sodium], Grass Pollen, and Valtrex [Valacyclovir] MEDICATIONS meloxicam (MOBIC) 15 mg tablet Take 1 tablet by mouth once daily. for pain. Take with food. simvastatin (ZOCOR) 10 mg tablet Take 1 tablet by mouth daily at bedtime. levothyroxine (LEVOXYL) 100 mcg tablet Take 1 tablet by mouth once daily. atenolol (TENORMIN) 50 mg tablet Take 1 tablet by mouth once daily. hydroCHLOROthiazide 12.5 mg capsule Take 1 capsule by mouth once daily. losartan (COZAAR) 25 mg tablet Take 1 tablet by mouth once daily. Cetirizine (ZYRTEC) 10 mg ORAL Cap Take [...] No Drug use: No PHYSICAL EXAM BP 112/60 Pulse 60 Temp (!) 35.9 ?C (96.6 ?F) (Temporal) Resp 16 Wt 44 kg (97 lb) SpO2 97% BMI 19.56 kg/m? General Appearance: well appearing, in no acute distress, alert Lungs: Lungs clear to auscultation. No wheezing, rhonchi, rales. Heart: RRR without murmur, gallop, or rubs. No ectopy Abdomen: Abdomen soft, non-tender. Bowel sounds normal. No masses, organomegaly Health maintenance reviewed with patient: Anxiety Screening Never done DTaP,Tdap,Td Vaccine(1 - Tdap) due on 04/09/2006 RSV Vaccine(1 - 1-dose 75+ series) Never done Influenza Vaccine(1) due on 03/07/2025 Diabetes Screening due on 09/09/2027 Bone Density Screening Completed Medicare Advantage Annual Wellness Visit Completed Shingrix Vaccine Completed Pneumococcal Vaccine: 50+ Completed Advance Directive Discussio (more content not included)...[facility]06-04-2025 Telephone encounter Note* Telephone Encounter - Manisha Appiah LPN - 12/08/2024 9:55 AM EDT Patient has been identified by name and [...] Please advise. Thank you. Manisha Appiah LPN. [facility]06-04-2025 Miscellaneous Notes* Telephone Encounter - Manisha Appiah LPN - 12/08/2024 9:55 AM EDT Patient has been identified by name and [...] you. Manisha Appiah LPN. documented [facility] Telephone encounter Note * Telephone Encounter - Manisha Appiah LPN - 10/18/2024 3:18 PM EDT Patient has been identified by name and date of : Yes Patient phones for refill(s): Requested Prescriptions Pending Prescriptions Disp Refills levothyroxine (LEVOXYL) 100 mcg tablet 90 tablet 3 Sig: Take 1 tablet by mouth once daily. Date of last office visit in primary care: 09/14/2024 Date of next office visit in primary care: 03/21/2025 Please advise. Thank you. Manisha Appiah LPN. [facility]04-14-2025 Miscellaneous Notes* Telephone Encounter - Manisha Appiah LPN - 10/18/2024 3:18 PM EDT Patient has been identified by name and [...] you. Manisha Appiah LPN. documented in this encounterChildren[facility]03-[facility] Telephone encounter Note * Telephone Encounter - Naida Castanon LPN - 09/24/2024 9:33 AM EDT Prescription Refill Information The patient has been [...] Castanon LPN September 24, 2024 9:33 AM [facility]03-21-2025 Miscellaneous Notes* Telephone Encounter - Naida Castanon LPN - 09/24/2024 9:33 AM EDT Prescription Refill Information The patient has been [...] 24, 2024 9:33 AM documented in this encounterChildren[facility]03-20-2025 Telephone encounter Note * Telephone Encounter - Veena Rico OCCA - 09/23/2024 9:08 AM EDT Prescription Refill Information The patient has been [...] OSWALDO Call September 23, 2024 9:08 AM [facility]03-20-2025 Miscellaneous Notes* Telephone Encounter - Veena Rico OCCA - 09/23/2024 9:08 AM EDT Prescription Refill Information The patient has been [...] 23, 2024 9:08 AM documented in this encounterChildren'S [facility]03-11-2025 NoteHNO ID: [id number] Author: RUSS BARONE MD Service: ? Author Type: Physician Type: Progress Notes Filed: 09/14/2024 08:47 Note Text: Paty iRos is a 84 year old female here [...] 10 mg tablet Cet (more content not included)...[facility]03-11-2025 History of Present illness Narrative* Russ Barone MD - 09/14/2024 8:18 AM EDT Images from the original note were not [...] feet. Careful with diet to avoid salt, tryingto eat more fruits and vegetables, exercises regularly [...] any unintended typographical errors. documented in this encounterChildren'[facility]02-24-2025 Telephone encounter Note * Telephone Encounter - Manisha Appiah LPN - 08/30/2024 5:03 PM EST Patient has been identified by name and date of : Yes Patient phones for refill(s): Requested Prescriptions Pending Prescriptions Disp Refills losartan (COZAAR) 25 mg tablet 90 tablet 1 Sig: Take 1 tablet by mouth once daily. Date of last office visit in primary care: 03/05/2024 Date of next office visit in primary care: 09/14/2024 Please advise. Thank you. Manisha Appiah LPN. [facility]02-24-2025 Miscellaneous Notes* Telephone Encounter - Manisha Appiah LPN - 08/30/2024 5:03 PM EST Patient has been identified by name and [...] you. Manisha Appiah LPN. documented in this encounterChildren[facility]10-23-2024 Telephone encounter Note * Telephone Encounter - Karrie Russo LPN - 04/28/2024 2:19 PM EDT Patient requesting to have regular dose flu vaccine and not high dose. States that she broke out inhives and was severely nauseated the last time she received the high dose. Please review and advise. Karrie Russo LPN [facility]10-23-2024 Miscellaneous Notes* Telephone Encounter - Karrie Russo LPN - 04/28/2024 2:19 PM EDT Patient requesting to have regular dose flu vaccine and not high dose. States that she broke out inhives and was severely nauseated the last time she received the high dose. Please review and advise. Karrie Russo LPN documented in this encounterChildren[facility]09-16-2024 Telephone encounter Note * Telephone Encounter - Martha Funk APRN.CNP - 03/22/2024 7:19 AM EDT Then no concerns on blood work. Thank you Martha Fnuk APRN.CNP [facility]09-16-2024 Miscellaneous Notes* Telephone Encounter - Martha Funk APRN.CNP - 03/22/2024 7:19 AM EDT Then no concerns on blood work. Thank you Martha Funk APRN.CNP * Telephone Encounter - Muriel Child LPN - 03/19/2024 3:07 PM EDT Patient returned call and went over results, notes from Martha Older MANAGER [employer] with understanding. Patient said she was not fasting for the lab work. * Telephone Encounter - Lyndsay Dunn LPN - 03/19/2024 10:10 AM EDT Called and left message for patient to call office back for results Lyndsay Dunn LPN March 19, 2024 10:12 AM * Telephone Encounter - Martha Funk APRN.CNP - 03/19/2024 9:39 AM EDT Blood work all in acceptable ranges. Blood sugar slightly elevated but is normal if this was not a fasting sample. If it was a fasting sample, I recommend we do a HgbA1c to further evaluate this. Thank you Martha Funk APRN.CNP documented in this encounterChildren'[facility]09-13-2024 Telephone encounter Note * Telephone Encounter - Muriel Child LPN - 03/19/2024 3:07 PM EDT Patient returned call and went over results, notes from Martha Funk MANAGER [employer] with understanding. Patient said she was not fasting for the lab work. [facility]09-13-2024 Telephone encounter Note* Telephone Encounter - Lyndsay Dunn LPN - 03/19/2024 10:10 AM EDT Called and left message for patient to call office back for results Lyndsay Dunn LPN March 19, 2024 10:12 AM [facility]09-13-2024 Telephone encounter Note* Telephone Encounter - Martha Funk APRN.CNP - 03/19/2024 9:39 AM EDT Blood work all in acceptable ranges. Blood sugar slightly elevated but is normal if this was not a fasting sample. If it was a fasting sample, I recommend we do a HgbA1c to further evaluate this. Thank you Martha Funk APRN.CNP [facility]09-12-2024 Instructions* Patient Instructions* Martha Funk APRN.CNP - 03/18/2024 8:22 AM EDT Over the counter cream/gel with lidocaine and/or vit E gel. documented in this encounterChildren'S [facility]09-12-2024 NoteHNO ID: [id number] Author: MARTHA FUNK APRN.CNP Service: ? Author [...] asymptomatic - Instructed patient (more content not included)...[facility] 03-18-2024 History of Present illness Narrative* Martha Funk APRN.EQUIPMENT MONITOR PHOTOTYPESETTING - 03/18/2024 8:10 AM EDT CC: Patient presents with: Recheck: 6 month [...] the 120s/70s range. Paty works out regularly 7times per week with walking. She watches her [...] with patient: Anxiety Screening Never done Covid-19 Vaccine(2022- season) due on 03/07/2024 Influenza Vaccine(1) due [...] plan. Martha Funk APRN.CNP documented in this encounterChildren'[facility]08-31-2024 Telephone encounter Note * Telephone Encounter - Stephanie García APRN.CNP - 03/06/2024 12:56 PM EDT Called with patient informed that culture revealed shingles. GFR 72, started on Valtrex. Recommend to call ENT on Friday for evaluation. Tylenol/ibuprofen as needed for pain. Stephanie García APRN.CNP [facility]08-31-2024 Miscellaneous Notes* Telephone Encounter - Stephanie García APRN.CNP - 03/06/2024 12:56 PM EDT Called with patient informed that culture revealed shingles. GFR 72, started on Valtrex. Recommend to call ENT on Friday for evaluation. Tylenol/ibuprofen as needed for pain. Stephanie García APRN.CNP documented in this encounterChildren'S [facility]08-30-2024 Instructions* Patient Instructions* Stephanie García APRN.CNP - 03/05/2024 8:07 AM EDT Will send culture for cold sore, and notify of results Ofloxacin drops to right ear Pepcid 20 mg twice a day for 10 days Zyrtec 10 mg By mouth daily at bedtime documented in this encounterChildren'S Hospital For Rehabilitation08-30-2024 NoteHNO ID: [id number] Author: STEPHANIE GARCÍA APRN.CNP Service: ? Author Type: Nurse Practitioner Type: Progress Notes Filed: 03/05/2024 08:46 Note Text: Subjective The history is provided by the patient. No freelance interpreter/translator was used. PAT Rios is a 83 [...] have confirmed and edited as necessary, the [facility] Review of Systems Constitutional: Negative for chills [...] detail warranting prompt ER evaluation. Stephanie García APRN.[facility]08-30-2024 History of Present illness Narrative* Stephanie García APRN.[facility] - 03/05/2024 8:04 AM EDT Images from the original note were not included. Subjective The history is provided by the patient. No freelance interpreter/translator was used. PAT Rios is a 83 [...] kg (111 lb 8.8 oz) SpO2 96% BMI21.79 kg/m Social History Tobacco Use Smoking status: [...] have confirmed and edited as necessary, the [facility] Review of Systems Constitutional: Negative for chills [...] for higher level of care were discussed indetail warranting prompt ER evaluation. Stephanie García APRN.[facility] documented in this encounterChildren'S [facility]08-28-2024 NoteHNO ID: [id number] Author: CLAUDIO CAVAZOS APRN.[facility] Service: ? Author Type: Nurse Practitioner [...] history is provided by the patient. No freelance interpreter/translator was used. Rash Review of Systems Constitutional: [...] times when brands were switched. Claudio Cavazos APRN.[facility]08-28-2024 History of Present illness Narrative* Claudio Cavazos APRN.[facility] - 03/03/2024 2:31 PM EDT Images from the original note were not [...] difficulty breathing or swallowing. Patient says the hivesdo itch. Patient denies any other symptoms at this time. The history is provided by the patient. No freelance interpreter/translator was used. Rash Review of Systems Constitutional: [...] times when brands were switched. Claudio Cavazos APRN.[facility] documented in this encounterChildren'S [facility]08-28-2024 Telephone encounter Note * Telephone Encounter - Manisha Appiah LPN - 03/03/2024 9:18 AM EDT Patient has been identified by name and date of : Yes Patient phones for refill(s): Requested Prescriptions Pending Prescriptions Disp Refills losartan (COZAAR) 25 mg tablet 90 tablet 1 Sig: Take 1 tablet by mouth once daily. Date of last office visit in primary care: 11/28/2022 Date of next office visit in primary care: 03/18/2024 Please advise. Thank you. Manisha Appiah LPN. [facility]08-28-2024 Miscellaneous Notes* Telephone Encounter - Manisha Appiah LPN - 03/03/2024 9:18 AM EDT Patient has been identified by name and [...] you. Manisha Appiah LPN. documented in this encounterChildren'S [facility]03-13-2024 History of Present illness Narrative* Martha Funk APRN.CNP - 09/17/2023 8:15 AM EDT Images from the original note were not [...] with patient, and I recommended no further interventionat this time. Cognitive screening Mini Cog Score: [...] medication(s) and is compliant with their regimen. [place] check BP's away from this office with average BP's in the 120s-130s/60s range. Paty works out regularly with walking when the weather is night. She watches her diet for sodium, low fat and lowcholesterol most of the time. Last 3 Encounter [...] Vaccine(2 of 3) due on 03/19/2024 Covid-19 Vaccine( - 2022- season) due on 03/19/2024 RSV Vaccine(1 - [...] diet of 1000 mg/day for under 50, 1200- 1500 mg/day for 50+ - Depression screening tool [...] plan. Martha Funk APRN.CNP documented in this encounterChildren'S [facility]03-13-2024 Instructions* Patient Instructions* Martha Funk APRN.CNP - 09/17/2023 8:15 AM [...] review all the medicines you take, even oydt-xky-mokbgso medicines. As you get older, the way medicines work in your body can change. Some medicines, or combinations of medicines, can make you sleepy or dizzy andcan cause you to fall. 3. Have your [...] have certain medical conditions. documented in this encounterChildren'S [facility]02-28-2024 Miscellaneous Notes* Telephone Encounter - Manisha Appiah LPN - 09/03/2023 10:14 AM EST Patient has been identified by name and [...] you. Manisha Appiah LPN. documented in this encounterChildren'S [facility]09-13-2023 History of Present illness Narrative* Older, MarthaPUMA chavez.EQUIPMENT MONITOR PHOTOTYPESETTING - 03/19/2023 8:04 AM EDT CC: Patient presents with: Recheck: 6 month [...] not the high dose typically used for herage range. States the high dose makes her feel terrible. HTN and HLD: Ms. Rios indicates that she is feeling well and denies any symptoms referable to elevated blood pressure. Specifically denies headache, chest pain, palpitations, dyspnea, and peripheral edema. Patient denies any side effects of her medication(s) and is compliant with their regimen. [place] check BP's away from this office with [...] plan. Martha Funk APRN.CNP documented in this encounterChildren'S [facility]09-13-2023 Miscellaneous Notes* Telephone Encounter - Lizbet Pham MA - 03/19/2023 7:41 AM EDT Patient notified of results, verbalized understanding and has f/u appt with Martha Older this AM. Lizbet Pham MA * Telephone Encounter - Claudio Cavazos APRN.CNP - 03/18/2023 7:43 PM EDT Tsh is normal please have patient follow up with PCP. Thank you! documented in this encounterChildren'S [facility]03-13-2023 History of Present illness Narrative* Russ Barone MD - 09/16/2022 9:04 AM EDT Reason for Visit No chief complaint on [...] medication. Russ Barone MD documented in this encounterChildren'S [facility]03-11-2023 Miscellaneous Notes* Telephone Encounter - Manisha Appiah LPN - 09/14/2022 11:35 AM EST Patient notified of below recommendation, verbalized understanding. Manisha Appiah LPN * Telephone Encounter - Manisha Appiah LPN - 09/14/2022 11:34 AM EST ----- Message from Russ Barone MD sent at 09/12/2022 1:47 PM EST ----- Please review your test results , will discuss in detail at your upcoming office visit. Regards, Russ Barone MD documented in this encounterChildren'[facility]09-12-2022 History of Present illness Narrative* Russ Barone MD - 03/18/2022 9:00 AM EDT Reason for Visit Patient presents with: F/U [...] hypothyroidism Russ Barone MD documented in this encounterChildren'S [facility]03-31-2022 Miscellaneous Notes* Telephone Encounter - Manisha Appiah LPN - 10/04/2021 9:27 AM EDT Patient has been identified by name and [...] you. Manisha Appiah LPN documented in this encounterChildren'S [facility]03-31-2022 Miscellaneous Notes* Telephone Encounter - Manisha Appiah LPN - 10/04/2021 9:20 AM EDT Called Hannah/Corey, they did not receive Levothyroxine [...] you. Manisha Appiah LPN documented in this encounterChildren'S [facility]03-31-2022 Miscellaneous Notes* Telephone Encounter - Claire Sheriff MA - 10/04/2021 9:17 AM EDT NOV 03/18/22 BRENDA 09/12/21 Patient electronically sent [...] review. Claire Sheriff MA [facility] Diagnosis Essential hypertension, benign documented in this encounter [facility] note* Diagnosis Elevated blood sugar Other abnormal glucose documented in this encounter [facility] note* Diagnosis Hypothyroidism, unspecified type documented in this encounter [facility] note* Diagnosis Hypothyroidism Unspecified hypothyroidism [facility] [place] [facility] Diagnosis Essential hypertension, benign- Primary Need for influenza vaccination Need for prophylactic vaccination and inoculation against influenza Mixed hyperlipidemia Hypothyroidism, unspecified type Elevated blood sugar Other abnormal glucose documented in this encounter [facility] note* Diagnosis Elevated MCV- Primary Other abnormality of red blood cells Hypothyroidism, unspecified type Essential hypertension, benign Mixed hyperlipidemia documented in this encounter [facility] note* Diagnosis Elevated blood sugar Other abnormal glucose [facility] [place] [facility]* Diagnosis Essential hypertension, benign- Primary Mixed hyperlipidemia Hypothyroidism, unspecified type Need for influenza vaccination Need for prophylactic vaccination and inoculation against influenza Annual physical exam Routine general medical examination at a health care facility documented in this encounter [facility] [place] [facility]* Diagnosis Elevated blood sugar Other abnormal glucose [facility] [place] [facility]* Diagnosis Medicare annual wellness visit, subsequent- Primary Routine general medical examination at a health care facility Hypothyroidism, unspecified type Essential hypertension, benign Mixed hyperlipidemia Medication management Encounter for long-term (current) use of other medications [facility] [place] [facility]* Diagnosis Establishing care with new doctor, [...] Other abnormal glucose documented in this encounter [facility] note* Diagnosis Establishing care with new doctor, [...] Primary Urticaria, unspecified [facility] [place] [facility]* Diagnosis Establishing care with new doctor, [...] pain Otalgia, unspecified documented in this encounter [facility] note* Diagnosis Establishing care with new doctor, [...] health care facility documented in this encounter [facility] note* Diagnosis Establishing care with new doctor, [...] inoculation against influenza documented in this encounter [facility] note* Diagnosis Establishing care with new doctor, [...] Other abnormal glucose documented in this encounter [facility] note* Diagnosis Establishing care with new doctor, [...] Essential hypertension, benign documented in this encounter [facility] note* Diagnosis Establishing care with new doctor, [...] Essential hypertension, benign documented in this encounter [facility] note* Diagnosis Establishing care with new doctor, [...] Hypothyroidism, unspecified type documented in this encounter [facility] note* Diagnosis Establishing care with new doctor, [...] of right thumb documented in this encounter [facility] noteNo assessment information availableWWilson Health Work Phone: Hospital Discharge instructionsAdditional Instructions The CAT scan shows you have inflammation of your lower colon and rectum. This needs treated with an antibiotic since you have a high white blood cell count. 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 Yes February 10, 2025 6:37pm Advance Directive Response Recorded Date/ Time Do you have a Healthcare Power of School Cook? Yes February 10, 2025 6:37pm Do you have a Healthcare Power of School Cook? Yes February 14, 2025 10:20am Chief Complaint and Reason for Visit Chief Complaint Admit Date diarrhea February 10, 2025 4:3 7pm Chief Complaint Admit Date diarrhea February 10, 2025 4:3 7pm N/D February 14, 2025 10 :02am Summary Purpose Family History No Family History Records FoundNo Family History Records Found Additional Source Comments Source Comments (unrecognize d section and content) In the event this informatio n is protected by the Federal Confidentiality of Alcohol and Drug Abuse Patient Records regulations: The Federal rules restrict any use of the information to criminally investigate or prosecute any alcohol or drug abuse patient.[facility] RehabilitationIn the event this information is protected by the Federal Confidentiality of Alcohol and Drug Abuse Patient Records regulations: The Federal rules restrict any use of the information to criminally investigate or prosecute any alcohol or drug abuse patient.[facility] RehabilitationIn the event this information is protected by the Federal Confidentiality of Alcohol and Drug Abuse Patient Records regulations: The Federal rules restrict any use of the information to criminally investigate or prosecute any alcohol or drug abuse patient.[facility] RehabilitationIn the event this information is protected by the Federal Confidentiality of Alcohol and Drug Abuse Patient Records regulations: The Federal rules restrict any use of the information to criminally investigate or prosecute any alcohol or drug abuse patient.[facility] RehabilitationIn the event this information is protected by the Federal Confidentiality of Alcohol and Drug Abuse Patient Records regulations: The Federal rules restrict any use of the information to criminally investigate or prosecute any alcohol or drug abuse patient.[facility] RehabilitationIn the event this information is protected by the Federal Confidentiality of Alcohol and Drug Abuse Patient Records regulations: The Federal rules restrict any use of the information to criminally investigate or prosecute any alcohol or drug abuse patient.[facility] RehabilitationIn the event this information is protected by the Federal Confidentiality of Alcohol and Drug Abuse Patient Records regulations: The Federal rules restrict any use of the information to criminally investigate or prosecute any alcohol or drug abuse patient.[facility] RehabilitationIn the event this information is protected by the Federal Confidentiality of Alcohol and Drug Abuse Patient Records regulations: The Federal rules restrict any use of the information to criminally investigate or prosecute any alcohol or drug abuse patient.[facility] RehabilitationIn the event this information is protected by the Federal Confidentiality of Alcohol and Drug Abuse Patient Records regulations: The Federal rules restrict any use of the information to criminally investigate or prosecute any alcohol or drug abuse patient.[facility] RehabilitationIn the event this information is protected by the Federal Confidentiality of Alcohol and Drug Abuse Patient Records regulations: The Federal rules restrict any use of the information to criminally investigate or prosecute any alcohol or drug abuse patient.[facility] RehabilitationIn the event this information is protected by the Federal Confidentiality of Alcohol and Drug Abuse Patient Records regulations: The Federal rules restrict any use of the information to criminally investigate or prosecute any alcohol or drug abuse patient.[facility] RehabilitationIn the event this information is protected by the Federal Confidentiality of Alcohol and Drug Abuse Patient Records regulations: The Federal rules restrict any use of the information to criminally investigate or prosecute any alcohol or drug abuse patient.[facility] RehabilitationIn the event this information is protected by the Federal Confidentiality of Alcohol and Drug Abuse Patient Records regulations: The Federal rules restrict any use of the information to criminally investigate or prosecute any alcohol or drug abuse patient.[facility] RehabilitationIn the event this information is protected by the Federal Confidentiality of Alcohol and Drug Abuse Patient Records regulations: The Federal rules restrict any use of the information to criminally investigate or prosecute any alcohol or drug abuse patient.[facility] RehabilitationIn the event this information is protected by the Federal Confidentiality of Alcohol and Drug Abuse Patient Records regulations: The Federal rules restrict any use of the information to criminally investigate or prosecute any alcohol or drug abuse patient.[facility] RehabilitationIn the event this information is protected by the Federal Confidentiality of Alcohol and Drug Abuse Patient Records regulations: The Federal rules restrict any use of the information to criminally investigate or prosecute any alcohol or drug abuse patient.[facility] RehabilitationIn the event this information is protected by the Federal Confidentiality of Alcohol and Drug Abuse Patient Records regulations: The Federal rules restrict any use of the information to criminally investigate or prosecute any alcohol or drug abuse patient.[facility] RehabilitationIn the event this information is protected by the Federal Confidentiality of Alcohol and Drug Abuse Patient Records regulations: The Federal rules restrict any use of the information to criminally investigate or prosecute any alcohol or drug abuse patient.[facility] RehabilitationIn the event this information is protected by the Federal Confidentiality of Alcohol and Drug Abuse Patient Records regulations: The Federal rules restrict any use of the information to criminally investigate or prosecute any alcohol or drug abuse patient.[facility] RehabilitationIn the event this information is protected by the Federal Confidentiality of Alcohol and Drug Abuse Patient Records regulations: The Federal rules restrict any use of the information to criminally investigate or prosecute any alcohol or drug abuse patient.[facility] RehabilitationIn the event this information is protected by the Federal Confidentiality of Alcohol and Drug Abuse Patient Records regulations: The Federal rules restrict any use of the information to criminally investigate or prosecute any alcohol or drug abuse patient.[facility] RehabilitationIn the event this information is protected by the Federal Confidentiality of Alcohol and Drug Abuse Patient Records regulations: The Federal rules restrict any use of the information to criminally investigate or prosecute any alcohol or drug abuse patient.[facility] RehabilitationIn the event this information is protected by the Federal Confidentiality of Alcohol and Drug Abuse Patient Records regulations: The Federal rules restrict any use of the information to criminally investigate or prosecute any alcohol or drug abuse patient.[facility] RehabilitationIn the event this information is protected by the Federal Confidentiality of Alcohol and Drug Abuse Patient Records regulations: The Federal rules restrict any use of the information to criminally investigate or prosecute any alcohol or drug abuse patient.[facility] RehabilitationIn the event this information is protected by the Federal Confidentiality of Alcohol and Drug Abuse Patient Records regulations: The Federal rules restrict any use of the information to criminally investigate or prosecute any alcohol or drug abuse patient.[facility] RehabilitationIn the event this information is protected by the Federal Confidentiality of Alcohol and Drug Abuse Patient Records regulations: The Federal rules restrict any use of the information to criminally investigate or prosecute any alcohol or drug abuse patient.[facility] RehabilitationIn the event this information is protected by the Federal Confidentiality of Alcohol and Drug Abuse Patient Records regulations: The Federal rules restrict any use of the information to criminally investigate or prosecute any alcohol or drug abuse patient.[facility] RehabilitationIn the event this information is protected by the Federal Confidentiality of Alcohol and Drug Abuse Patient Records regulations: The Federal rules restrict any use of the information to criminally investigate or prosecute any alcohol or drug abuse patient.[facility] Reason for Visit (unrecogniz ed section and [...] Care Teams (unrecognized sec tion and content) Cement Sack Breaker Relationship Specialty Start Date End Date Russ Barone MD [address] [facility] [place] [address] PCP - General Internal Medicine 11/01/14 Cement Sack Breaker Relationship Specialty Start Date End Date Russ Barone MD [address] [facility] [place] [address] PCP - General Internal Medicine 11/01/14 Cement Sack Breaker Relationship Specialty Start Date End Date Russ Barone MD [address] [facility] [place] [address] PCP - General Internal Medicine 11/01/14 Cement Sack Breaker Relationship Specialty Start Date End Date Russ Barone MD [address] [facility] [place] [address] PCP - General Internal Medicine 11/01/14 Cement Sack Breaker Relationship Specialty Start Date End Date Russ Barone MD [address] [facility] [place] [address] PCP - General Internal Medicine 11/01/14 Cement Sack Breaker Relationship Specialty Start Date End Date Russ Barone MD [address] [facility] [place] [address] PCP - General Internal Medicine 11/01/14 Cement Sack Breaker Relationship Specialty Start Date End Date Russ Barone MD [address] [facility] [place] [address] PCP - General Internal Medicine 11/01/14 Cement Sack Breaker Relationship Specialty Start Date End Date Russ Barone MD [address] [facility] [place] [address] PCP - General Internal Medicine 11/01/14 Cement Sack Breaker Relationship Specialty Start Date End Date Russ Barone MD [address] [facility] [place] [address] PCP - General Internal Medicine 11/01/14 Cement Sack Breaker Relationship Specialty Start Date End Date Russ Barone MD [address] [facility] [place] [address] PCP - General Internal Medicine 11/01/14 Cement Sack Breaker Relationship Specialty Start Date End Date Russ Barone MD [address] [facility] [place] [address] PCP - General Internal Medicine 11/01/14 Cement Sack Breaker Relationship Specialty Start Date End Date Russ Barone MD [address] [facility] [place] [address] PCP - General Internal Medicine 11/01/14 Cement Sack Breaker Relationship Specialty Start Date End Date Russ Barone MD [address] [facility] [place] [address] PCP - General Internal Medicine 11/01/14 Cement Sack Breaker Relationship Specialty Start Date End Date Russ Barone MD [address] [facility] [place] [address] PCP - General Internal Medicine 11/01/14 Cement Sack Breaker Relationship Specialty Start Date End Date Russ Barone MD [address] [facility] [place] [address] PCP - General Internal Medicine 11/01/14 Cement Sack Breaker Relationship Specialty Start Date End Date Russ Barone MD [address] [facility] [place] [address] PCP - General Internal Medicine 11/01/14 Cement Sack Breaker Relationship Specialty Start Date End Date Russ Barone MD [address] [facility] [place] [address] PCP - General Internal Medicine 11/01/14 Cement Sack Breaker Relationship Specialty Start Date End Date Russ Baorne MD [address] [facility] [place] [address] PCP - General Internal Medicine 11/01/14 Alea Dorantes PA-C [address] [place] [address] [employer] [facility] 06/13/24 Martha Funk APRN.CNP [address] [place] [address] [employer] Internal [facility] 06/13/24 Pamela Self PA-C [address] [facility] [place] [address] [employer] [facility] 06/13/24 Cement Sack Breaker Relationship Specialty Start Date End Date Russ Barone MD [address] [facility] [place] [address] PCP - General Internal Medicine 11/01/14 Alea Dorantes PA-C [address] [place] [id number] [employer] [facility] 06/13/24 Martha Funk APRN.EQUIPMENT MONITOR [employer]OT[employer]YP[employer]ETTING [address] [place] [address] [employer] [facility] 06/13/24 Pamela Self PA-C [address] [place] [address] [employer] [facility] 06/13/24 Cement Sack Breaker Relationship Specialty Start Date End Date Russ Barone MD [address] [place] [address] PCP - General Internal Medicine 11/01/14 Alea Dorantes PA-C [address] [place] [id number] [employer] [facility] 06/13/24 Martha Funk APRN.EQUIPMENT MONITOR [employer]YP[employer]ETTING [address] [place] [address] [employer] [facility] 06/13/24 Pamela Self PA-C [address] [place] [address] [employer] [facility] 06/13/24 Cement Sack Breaker Relationship Specialty Start Date End Date Russ Barone MD [address] [facility] [place] [address] PCP - General Internal Medicine 11/01/14 Martha Funk APRN.EQUIPMENT MONITOR [employer]YP[employer]ETTING [address] [place] [address] [employer] [facility] 06/13/24 Cement Sack Breaker Relationship Specialty Start Date End Date Russ Barone MD [address] [place], [place] [id number] PCP - General Internal Medicine 11/01/14 Alea Dorantes PA-C [address] [place] [address] [facility] 06/13/24 09/26/24 Older, PUMA Thomas.EQUIPMENT MONITOR PHOTOTYPESETTING [address] [place], [place] [id number] [facility] Internal Medicine 06/13/24 Pamela Self PA-C [address] [place], [place] [address] [facility] 06/13/24 09/26/24 Team Status: Active Member Role/Relationship Status Dates Dr. Russ Barone MD Primary Care Provider Active Team Status: Inactive Member Role/Relationship Status Dates Dr. Russ Barone MD Primary Care Provider Active Start: February 10, 2025 End: February 10, 2025 Dr. Galdino Pittman DO Referring Provider Activ e Start: February 10, 2025 End: February 10, 2025 Dr. Galdino Pittman DO Emergency Provider Activ e Start: February 10, 2025 End: February 10, 2025 Team Status: Inactive Member Role/Relationship Status Dates Dr. Russ Barone MD Primary Care Provider Active Start: February 14, 2025 End: February 14, 2025 Dr. Suhail Delacruz MD Emergency Provider Active Sta rt: February 14, 2025 End: February 14, 2025 Goals (unrecognized section and content) Goals may be documented in a n alternate sectionGoals may be documented in an alternate section INFORMATION SOURCE (unrecogn ized section and content) DATE CREATED AUTHOR 02/12/2025 [facility] DATE CREATED AUTHOR AUTHOR'S LEANNEIZ ATION 02/13/2025 [facility] FOR RECORDS PERTAINING TO PATIENTS WHO [...] BE BASED ON THE PRIMARY CLINICAL RECORDS. [employer] provides no warranty or guarantee of the accuracy or completeness of information in this document.
--- OUTSIDE RECORDS SUMMARY | 2025-02-14 18:43 | XMS RPT_ITS | CCD ---
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, Martha Unavailable Aramis CAGE Pamela Unavailable Dendominique [...] Translations: [ALENDRONATE SODIUM] Drug Allergy 7 Intolerance [facility] Work Phone: (20 sources) Amoxicillin / Clavulanate; Translations: [AMOXICILLIN-POT CLAVULANATE] Drug Allergy 8 Rash, Diarrhea, Swelling, Other: See Comments [facility] Work Phone: (20 sources) Grass pollen; Translations: [GRASS POLLEN] Propensity to adverse reactions 5 [facility] Work Phone: (11 sources) leaves [Other] Propensity to adverse reactions 5 [facility] Work Phone: (11 sources) weeds [Other] Propensity to adverse reactions 5 [facility] Work Phone: (13 sources) valACYclovir; Translations: [VALACYCLOVIR] Drug Allergy 4 GI Upset [facility] (2 sources) Amoxicillin Drug Allergy 5 Hives [facility] (1 source) Amoxicillin Drug Allergy 5 [facility] Repository (1 source) levoFLOXacin Drug Allergy 5 Abd cramps/diarrhe a [facility] (1 source) metroNIDAZOLE Drug Allergy 5 Abd cramps/diarrhe a [facility] Medications Current Medications Medication Drug Class(es) Dates [...] on above: Take 1 capsule by mo [facility] once daily. levoFLOXacin 750 mg oral tablet [...] Auto (Unsp spec) [#/Vol] 1.05 10*3/uL 0.83-4.51 [facility] Absolute neutrophil countOrd ered By: Suhail Delacruz on 02-14-2025 Neutrophils (Bld) [#/Vol] 17.2 10*3/uL High 2.0-7.7 [facility] Anion gap in Serum or Plasma Ordered By: Suhail Delacruz on 02-14-2025 Anion gap [Moles/Vol] 21 mmol/L High 5-15 [facility] Automated lymphocyte count a s percentage of total leukocytesOrdered By: Suhail Delacruz on 02-14-2025 Lymphocytes/100 WBC Auto (Unsp spec) 5.3 % Low 19-41 [facility] BUN/creatinine ratioOrdered By: Suhail Delacruz on 02-14-2025 Urea nitrogen/Creatinine [Mass ratio] 29.8 mg/mg High 10-20 [facility] Basophil percentageOrdered B y: Suhail Delacruz on 02-14-2025 Basophils/100 WBC (Bld) 0.4 % 0-1 [facility] Carbon dioxide, total [Moles /volume] in Central venous bloodOrdered By: Suhail Delacruz on 02-14-2025 CO2 [Moles/Vol] 20.7 mmol/L Low 21.0-32.0 [facility] Chloride assayOrdered By: patsy Delacruz on 02-14-2025 Chloride [Moles/Vol] 98 mmol/L 98-108 [facility] Eosinophil percentageOrdered By: Suhailpatsy Priesto on 02-14-2025 Eosinophils/100 WBC (Bld) 0.1 % 0-5 [facility] Erythrocyte distribution wid th ratioOrdered By: Suhail Delacruz on 02-14-2025 Erythrocyte distribution width (RBC) [Ratio] 13.9 % 11.6-14.6 [facility] Erythrocyte distribution wid th standard deviationOrdered By: Suhail Delacruz on 02-14-2025 Erythrocyte distribution width (RBC) [Ratio] 49.2 fl High 35.1-43.9 [facility] Glomerular filtration rate ( GFR) estimation/1.73 sq m using serum, plasma, or whole bOrdered By: Suhail Delacruz on 02-14-2025 GFR/1.73 sq M.predicted among non-blacks MDRD (S/P/Bld) [Vol rate/Area] 50 mL/min/{1.73_m2} Low >60 [facility] Comment on above: mL/min/1.73m2 CKD-EP I Creatinine Equation (2020) Hematocrit Auto (Bld) [Volum e fraction]Ordered By: Suhail Delacruz on 02-14-2025 Hematocrit (Bld) [Volume fraction] 40.2 % 37-47 [facility] Hemoglobin measurementOrdere d By: Suhail Delacruz on 02-14-2025 Hemoglobin (Bld) [Mass/Vol] 13.3 g/dL 12.0-15.0 [facility] Immature granulocytes/100 WB C Auto (Bld)Ordered By: Suhail Delacruz on 02-14-2025 Immature granulocytes/100 WBC (Bld) 0.900 % 0.0-0.9 [facility] Comment on above: IG% - Immature Granu locytes (promyelocytes, myelocytes and metamyelocytes) > 1% indicates that a LEFT SHIFT is Present. MCV (mean corpuscular volume ) determinationOrdered By: Suhail Delacruz on 02-14-2025 MCV (RBC) [Entitic vol] 96.6 fL 81-99 [facility] Mean corpuscular hemoglobin (MCH) determinationOrdered By: Suhail Delacruz on 02-14-2025 MCH (RBC) [Entitic mass] 32.0 pg 27.0-32.0 [facility] Mean corpuscular hemoglobin concentration (MCHC) determinationOrdered By: Suhail Delacruz on 02-14-2025 MCHC (RBC) [Mass/Vol] 33.1 g/dL 32-36 [facility] Mean platelet volume determi nationOrdered By: Suhail Delacruz on 02-14-2025 Platelet mean volume (Bld) [Entitic vol] 7.7 fL 6.2-12.0 [facility] Monocyte percentageOrdered B y: Suhail Delacruz on 02-14-2025 Monocytes/100 WBC (Bld) 7.3 % 0-10 [facility] Neutrophil percentageOrdered By: Suhailpatsy Delacruz on 02-14-2025 Neutrophils/100 WBC (Bld) 86.0 % High 47-70 [facility] Nucleated red blood cell per centageOrdered By: Suhail Delacruz on 02-14-2025 Nucleated RBC/100 WBC (Bld) [Ratio] 0 % 0-5 [facility] Platelet countOrdered By: Gato Delacruz on 02-14-2025 Platelets (Bld) [#/Vol] 701 10*3/uL High 150-450 [facility] Potassium measurement (mass/ volume)Ordered By: Suhail Delacruz on 02-14-2025 Potassium (Unsp spec) [Mass/Vol] 3.4 mmol/L 3.3-5.1 [facility] RBC Auto (Bld) [#/Vol]Ordere d By: Suhail Delacruz on 02-14-2025 RBC (Bld) [#/Vol] 4.16 10*6/uL Low 4.2-5.4 [facility] Serum creatinine measurement (mass/volume)Ordered By: Suhail Delacruz on 02-14-2025 Creatinine [Mass/Vol] 1.08 mg/dL 0.70-1.20 [facility] Serum glucose measurement (m ass/volume)Ordered By: Suhailpatsy Delacruz on 02-14-2025 Glucose [Mass/Vol] 153 mg/dL High 70-[address] [facility] Serum or plasma calcium jaki urement (mass/volume)Ordered By: Suhail Delacruz on 02-14-2025 Calcium [Mass/Vol] 9.5 mg/dL 7.6-11.[address] [facility] Serum or plasma urea nitroge n measurement (mass/volume)Ordered By: Suhail Delacruz on 02-14-2025 Urea nitrogen [Mass/Vol] 32 mg/dL High 4-19 [facility] Sodium levelOrdered By: Suhail Delacruz on 02-14-2025 Sodium [Moles/Vol] 140 mmol/L 133-[address] [facility] White blood cell (WBC) count Ordered By: Suhail Delacruz on 02-14-2025 WBC (Bld) [#/Vol] 20.0 10*3/uL High 4.4-11.0 [facility] Abdomen/Pelvis W IV Cont ONL Yon 02-10-2025 Abdomen/Pelvis W IV Cont ONLY [facility] Imaging Services [address] [place] [address] Abdomen/Pelvis W IV Cont ONLY MR#: [id number] Acct: [id number] Name: PATY RIOS Rep #: [id number] : 1940 F 84 From: Erna Rubio MD PCP: Dr. Russ Barone MD Status: REG ER Study: Abdomen/Pelvis W IV Cont ONLY Date of Exam: Exam# [id number] Ordering Dr: Elvira Campbell PROCEDURE: ABDOMEN/PELVIS W [...] of the ampulla is possible. Reading Location: [facility] CC: Dr. Russ Barone MD; ARIANA Leiva Cylinder Honer: Signed Normal [facility] Absolute lymphocyte countOrd ered By: Elvira Campbell on 02-10-2025 Lymphocytes Auto (Unsp spec) [#/Vol] 1.16 10*3/uL 0.83-4.51 [facility] Absolute neutrophil countOrd ered By: Elvira Campbell on 02-10-2025 Neutrophils (Bld) [#/Vol] 15.6 10*3/uL High 2.0-7.7 [facility] Anion gap in Serum or Plasma Ordered By: Elvira Campbell on 02-10-2025 Anion gap [Moles/Vol] 15 mmol/L 5-15 [facility] Automated lymphocyte count a s percentage of total leukocytesOrdered By: Elvira Campbell on 02-10-2025 Lymphocytes/100 WBC Auto (Unsp spec) 6.1 % Low 19-41 [facility] BUN/creatinine ratioOrdered By: Elvira Campbell on 02-10-2025 Urea nitrogen/Creatinine [Mass ratio] 24.1 mg/mg High 10-20 [facility] Basic Metabolic Profile (BMP )on 02-10-2025 BUN/CRE 24.1 RATIO High 10-20 [facility] Comment on above: Performed By: #### L 100.0100, L500.2500, L503.6005 #### [facility] [address] [place], [address] Calcium [Mass/Vol] 9.2 mg/dL Normal 7.6-11.[address] [facility] Comment on above: Performed By: #### L 100.0100, L500.2500, L503.6005 #### [facility] [address] [place], [address] Chloride [Moles/Vol] 96 mmol/L Low 98-108 [facility] Comment on above: Performed By: #### L 100.0100, L500.2500, L503.6005 #### [facility] [address] [place], [address] CO2 [Moles/Vol] 24.7 mmol/L Normal 21.0-32.0 [facility] Comment on above: Performed By: #### L 100.0100, L500.2500, L503.6005 #### [facility] [address] [place], [address] Creatinine [Mass/Vol] 1.20 mg/dL Normal 0.70-1.20 [facility] Comment on above: Performed By: #### L 100.0100, L500.2500, L503.6005 #### [facility] [address] [place], [address] ECRCL 23.62 ml/min Low 50-250 [facility] Comment on above: Performed By: #### L 100.0100, L500.2500, L503.6005 #### [facility] [address] [place], [address] GAP 15 Normal 5-15 [facility] Comment on above: Performed By: #### L 100.0100, L500.2500, L503.6005 #### [facility] [address] [place], [address] GFR/1.73 sq M.predicted among non-blacks MDRD (S/P/Bld) [Vol rate/Area] 44 mL/min/{1.73_m2} Low >60 [facility] Comment on above: Result Comment: mL/m in/1.73m2 CKD-EPI Creatinine Equation (2020) Performed By: #### L 100.0100, L500.2500, L503.6005 #### [facility] [address] [place], [address] Glucose [Mass/Vol] 113 mg/dL High 70-[address] [facility] Comment on above: Performed By: #### L 100.0100, L500.2500, L503.6005 #### [facility] [address] [place], [address] Potassium [Moles/Vol] 3.3 mmol/L Normal 3.3-5.1 [facility] Comment on above: Performed By: #### L 100.0100, L500.2500, L503.6005 #### [facility] [address] [place], [address] Sodium [Moles/Vol] 136 mmol/L Normal 133-[address] [facility] Comment on above: Performed By: #### L 100.0100, L500.2500, L503.6005 #### [facility] [address] [place], [address] Urea nitrogen [Mass/Vol] 29 mg/dL High 4-19 [facility] Comment on above: Performed By: #### L 100.0100, L500.2500, L503.6005 #### [facility] [address] [place], [address] Basophil percentageOrdered B y: Elvira Campbell on 02-10-2025 Basophils/100 WBC (Bld) 0.6 % 0-1 [facility] Bilirubin Test strip Ql (U)O rdered By: Elvira Campbell on 02-10-2025 Bilirubin Ql (U) Negative Negative [facility] Blood manual differential co mment interpretation (narrative result)Ordered By: Elvira Campbell on 02-10-2025 Manual differential comment Gregory (Bld) [Interp] SCANNED [facility] CBC W/Diff, Automatedon 08-0 PLT EST MOD INC Normal ADEQ [facility] Comment on above: Performed By: #### L 100.0100, L500.2500, L503.6005 #### [facility] [address] [place], [address] SMEAR COMMENT SCANNED Normal [facility] Comment on above: Performed By: #### L 100.0100, L500.2500, L503.6005 #### [facility] [address] [place], [address] Carbon dioxide, total [Moles /volume] in Central venous bloodOrdered By: Elvira Campbell on 02-10-2025 CO2 [Moles/Vol] 24.7 mmol/L 21.0-32.0 [facility] Chloride assayOrdered By: Nika Campbell on 02-10-2025 Chloride [Moles/Vol] 96 mmol/L Low 98-108 [facility] Emergency Department Summary on 02-10-2025 Emergency Department Summary [facility] Medical Records Department [address] [place] [address] Emergency Department Summary 02/10/25 MR#: [id number] Acct: [id number] Name: PATY RIOS Rep #: [id number] : 1940 84 From: Elvira LANE PCP: [...] 82.0 H Lymph % (Auto) 6.1 L Roberts % (Auto) 10.4 H Eos % (Auto) [...] Clinical Impression(s) (more content not included)... Normal [facility] Eosinophil percentageOrdered By: Elvira Campbell on 02-10-2025 Eosinophils/100 WBC (Bld) 0.2 % 0-5 [facility] Erythrocyte distribution wid th ratioOrdered By: Elvira Campbell on 02-10-2025 Erythrocyte distribution width (RBC) [Ratio] 13.1 % 11.6-14.6 [facility] Erythrocyte distribution wid th standard deviationOrdered By: Elvira Campbell on 02-10-2025 Erythrocyte distribution width (RBC) [Ratio] 47.4 fl High 35.1-43.9 [facility] Glomerular filtration rate ( GFR) estimation/1.73 sq m using serum, plasma, or whole bOrdered By: Elvira Campbell on 02-10-2025 GFR/1.73 sq M.predicted among non-blacks MDRD (S/P/Bld) [Vol rate/Area] 44 mL/min/{1.73_m2} Low >60 [facility] Comment on above: mL/min/1.73m2 CKD-EP I Creatinine Equation (2020) Hematocrit Auto (Bld) [Volum e fraction]Ordered By: Elvira Campbell on 02-10-2025 Hematocrit (Bld) [Volume fraction] 37.9 % 37-47 [facility] Hemoglobin measurementOrdere d By: Elvira Campbell on 02-10-2025 Hemoglobin (Bld) [Mass/Vol] 12.3 g/dL 12.0-15.0 [facility] Immature granulocytes/100 WB C Auto (Bld)Ordered By: Elvira Campbell on 02-10-2025 Immature granulocytes/100 WBC (Bld) 0.700 % 0.0-0.9 [facility] Comment on above: IG% - Immature Granu locytes (promyelocytes, myelocytes and metamyelocytes) > 1% indicates that a LEFT SHIFT is Present. Ketones Test strip Ql (U)Ord ered By: Elvira Campbell on 02-10-2025 Ketones Ql (U) Negative Negative [facility] Lactic Acidon 02-10-2025 Lactate [Moles/Vol] 1.9 mmol/L Normal 0.0-2.0 [facility] Comment on above: Order Comment: Y Performed By: #### L 100.0100, L500.2500, L503.6005 #### [facility] [address] [place] [address]. [place], [address] Lactic acid measurementOrder ed By: Elvira Campbell on 02-10-2025 Lactate [Moles/Vol] 1.9 mmol/L 0.0-2.0 [facility] MCV (mean corpuscular volume ) determinationOrdered By: Elvira Campbell on 02-10-2025 MCV (RBC) [Entitic vol] 97.7 fL 81-99 [facility] Mean corpuscular hemoglobin (MCH) determinationOrdered By: Elvira Campbell on 02-10-2025 MCH (RBC) [Entitic mass] 31.7 pg 27.0-32.0 [facility] Mean corpuscular hemoglobin concentration (MCHC) determinationOrdered By: Elvira Campbell on 02-10-2025 MCHC (RBC) [Mass/Vol] 32.5 g/dL 32-36 [facility] Mean platelet volume determi nationOrdered By: Elvira Campbell on 02-10-2025 Platelet mean volume (Bld) [Entitic vol] 8.0 fL 6.2-12.0 [facility] Microscopic analysis of urin e for red blood cells (RBC)Ordered By: Elvira Campbell on 02-10-2025 Microscopic analysis of urine for red blood cells (RBC) 0-5 SEEN /hpf 0-5 [facility] Monocyte percentageOrdered B y: Elvira Campbell on 02-10-2025 Monocytes/100 WBC (Bld) 10.4 % High 0-10 [facility] Mucus LM Ql (Urine sed)Order ed By: Elvira Campbell on 02-10-2025 Mucus Ql (Urine sed) 0 SEEN /hpf [facility] Neutrophil percentageOrdered By: Elvira Campbell on 02-10-2025 Neutrophils/100 WBC (Bld) 82.0 % High 47-70 [facility] Nitrite Test strip Ql (U)Ord ered By: Elvira Campbell on 02-10-2025 Nitrite Ql (U) Negative Negative [facility] Nucleated red blood cell per centageOrdered By: Elvira Campbell on 02-10-2025 Nucleated RBC/100 WBC (Bld) [Ratio] 0 % 0-5 [facility] Platelet countOrdered By: Nika Campbell on 02-10-2025 Platelets (Bld) [#/Vol] 542 10*3/uL High 150-450 [facility] Platelet estimateOrdered By: Elvira Campbell on 02-10-2025 Platelets LM Ql (Bld) MOD INC ADEQ [facility] Potassium measurement (mass/ volume)Ordered By: Elvira Campbell on 02-10-2025 Potassium (Unsp spec) [Mass/Vol] 3.3 mmol/L 3.3-5.1 [facility] Protein Test strip Ql (U)Ord ered By: Elvira Campbell on 02-10-2025 Protein Ql (U) 30 mg/dl High Negative [facility] RBC Auto (Bld) [#/Vol]Ordere d By: Elvira Campbell on 02-10-2025 RBC (Bld) [#/Vol] 3.88 10*6/uL Low 4.2-5.4 [facility] Serum creatinine measurement (mass/volume)Ordered By: Elvira Campbell on 02-10-2025 Creatinine [Mass/Vol] 1.20 mg/dL 0.70-1.20 [facility] Serum glucose measurement (m ass/volume)Ordered By: Elvira Campbell on 02-10-2025 Glucose [Mass/Vol] 113 mg/dL High 70-[address] [facility] Serum or plasma calcium jaki urement (mass/volume)Ordered By: Elvira Campbell on 02-10-2025 Calcium [Mass/Vol] 9.2 mg/dL 7.6-11.[address] [facility] Serum or plasma urea nitroge n measurement (mass/volume)Ordered By: Elvira Campbell on 02-10-2025 Urea nitrogen [Mass/Vol] 29 mg/dL High 4-19 [facility] Sodium levelOrdered By: Elvira Campbell on 02-10-2025 Sodium [Moles/Vol] 136 mmol/L 133-[address] [facility] Squamous epithelial cells de tection in urine sediment by light microscopyOrdered By: Elvira Campbell on 02-10-2025 Epithelial cells.squamous LM Ql (Urine sed) 0-5 SEEN /hpf 5-10 [facility] Transitional cells detection in urine sediment by light microscopyOrdered By: Elvira Campbell on 02-10-2025 Transitional cells LM Ql (Urine sed) 0-5 SEEN /hpf 0-5 [facility] Urinalysis, Completeon 02-10 EPI,TRANSITION 0-5 SEEN Normal 0-5 [facility] Comment on above: Order Comment: CLEAN CATCH Performed By: #### L 400.0001 #### [facility] [place] [address], [address] EPI,SQUAMOUS 0-5 SEEN Normal 5-10 [facility] Comment on above: Order Comment: CLEAN CATCH Performed By: #### L 400.0001 #### [facility] [address] [place], [address] RBC 0-5 SEEN Normal 0-5 [facility] Comment on above: Order Comment: CLEAN CATCH Performed By: #### L 400.0001 #### [facility] [address] [place], [address] WBC 0-5 SEEN Normal 0-5 [facility] Comment on above: Order Comment: CLEAN CATCH Performed By: #### L 400.0001 #### [facility] [address] [place], [address] BACTERIA 0 SEEN Normal None Seen [facility] Comment on above: Order Comment: CLEAN CATCH Performed By: #### L 400.0001 #### [facility] [address] [place], [address] Mucus Ql (Urine sed) 0 SEEN Normal [facility] Comment on above: Order Comment: CLEAN CATCH Performed By: #### L 400.0001 #### [facility] [address] [place], [place], [address] Urine clarityOrdered By: Brook Campbell on 02-10-2025 Clarity (U) Clear Clear [facility] Urine color determinationOrd ered By: Elvira Campbell on 02-10-2025 Color (U) Yellow Yellow [facility] Urine glucose detectionOrder ed By: Elvira Campbell on 02-10-2025 Glucose Ql (U) Normal mg/dl Normal [facility] Urine leukocyte esterase det ection by dipstickOrdered By: Elvira Campbell on 02-10-2025 Leukocyte esterase Test strip Ql (U) Negative Negative [facility] Urine pHOrdered By: Elvira oseguera on 02-10-2025 pH (U) 6.0 [pH] 5.0 - 8.0 [facility] Urine sediment bacteria coun t by microscopy (number/high power field)Ordered By: Elvira Campbell on 08-07-2025 Bacteria LM.HPF (Urine sed) [#/Area] 0 /[HPF] None Seen [facility] Urine specific gravity measu rementOrdered By: Elvira Campbell on 02-10-2025 Specific gravity (U) [Rel density] 1.010 1.002-1.030 [facility] Urine urobilinogen measureme ntOrdered By: Elvira Campbell on 02-10-2025 Urobilinogen Ql (U) Normal mg/dl Normal [facility] White blood cell (WBC) count Ordered By: Elvira Campbell on 02-10-2025 WBC (Bld) [#/Vol] 19.0 10*3/uL High 4.4-11.0 [facility] White blood cell countOrdere d By: Elvira Campbell on 02-10-2025 White blood cell count 0-5 SEEN /hpf 0-5 [facility] CBC W Auto Differential pane l (Bld)on 02-09-2025 Basophils (Bld) [#/Vol] 0.00 10*3/uL Normal <0.11 [facility] Comment on above: Order Comment: Speci men Type: BLOOD SPECIMENOrdering Facility: [facility] Address: [address] [place] [address] Performed By: #### 5 7021-8 ####[facility] LABCLIA [id number] [place] [address] [place] Basophils/100 WBC (Bld) 0.0 % Normal [facility] Comment on above: Order Comment: Speci men Type: BLOOD SPECIMENOrdering Facility: [facility] Address: [address] [place] [address] Performed By: #### 5 7021-8 ####[facility] LABCLIA [id number] [place] [address] [place] Differential cell count method Nom (Bld) Manual Normal [facility] Comment on above: Order Comment: Speci men Type: BLOOD SPECIMENOrdering Facility: [facility] Address: [address] [place] [address] Performed By: #### 5 7021-8 ####[facility] LABCLIA [id number] [address] [place] [address] [place] Eosinophils (Bld) [#/Vol] 0.00 10*3/uL Normal <0.46 [facility] Comment on above: Order Comment: Speci men Type: BLOOD SPECIMENOrdering Facility: [facility] Address: [address] [place] [address] Performed By: #### 5 7021-8 ####[facility] LABCLIA [id number] [address], [place] [address] [place] Eosinophils/100 WBC (Bld) 0.0 % Normal [facility] Comment on above: Order Comment: Speci men Type: BLOOD SPECIMENOrdering Facility: [facility] Address: [address] [place] [address] Performed By: #### 5 7021-8 ####[facility] LABCLIA [id number] [address], [place] [address] [place] Erythrocyte distribution width (RBC) [Ratio] 13.3 % Normal 11.5-15.0 [facility] Comment on above: Order Comment: Speci men Type: BLOOD SPECIMENOrdering Facility: [facility] Address: [address] [place] [address] Performed By: #### 5 7021-8 ####[facility] LABCLIA [id number] [address], [place] [address] [place] Hematocrit (Bld) [Volume fraction] 40.4 % Normal 36.0-46.0 [facility] Comment on above: Order Comment: Speci men Type: BLOOD SPECIMENOrdering Facility: [facility] Address: [address] [place] [address] Performed By: #### 5 7021-8 ####[facility] LABCLIA [id number] [address], [facility] [place] Hemoglobin (Bld) [Mass/Vol] 12.9 g/dL Normal 11.5-15.5 [facility] Comment on above: Order Comment: Speci men Type: BLOOD SPECIMENOrdering Facility: [facility] Address: [address] [place] [address] Performed By: #### 5 7021-8 ####[facility] LABCLIA [id number] [place] [address] [place] Lymphocytes (Bld) [#/Vol] 1.01 10*3/uL Normal 1.00-4.00 [facility] Comment on above: Order Comment: Speci men Type: BLOOD SPECIMENOrdering Facility: [facility] Address: [address] [place] [address] Performed By: #### 5 7021-8 ####[facility] LABCLIA [id number] [place] [address] [place] Lymphocytes/100 WBC (Bld) 6.1 % Normal [facility] Comment on above: Order Comment: Speci men Type: BLOOD SPECIMENOrdering Facility: [facility] Address: [address] [place] [address] Performed By: #### 5 7021-8 ####[facility] LABCLIA [id number] [place] [address] [place] MCH (RBC) [Entitic mass] 31.5 pg Normal 26.0-34.0 [facility] Comment on above: Order Comment: Speci men Type: BLOOD SPECIMENOrdering Facility: [facility] Address: [address] [place] [address] Performed By: #### 5 7021-8 ####[facility] LABCLIA [id number] [place] [id number] [place] MCHC (RBC) [Mass/Vol] 31.9 g/dL Normal 30.5-36.0 [facility] Comment on above: Order Comment: Speci men Type: BLOOD SPECIMENOrdering Facility: [facility] Address: [address] [place] [address] Performed By: #### 5 7021-8 ####[facility] LABCLIA [id number] [address] [place] [address] [place] MCV (RBC) [Entitic vol] 98.5 fL Normal 80.0-100.0 [facility] Comment on above: Order Comment: Speci men Type: BLOOD SPECIMENOrdering Facility: [facility] Address: [address] [place] [address] Performed By: #### 5 7021-8 ####[facility] LABCLIA [id number] [address], [place] [address] [place] Monocytes (Bld) [#/Vol] 1.44 10*3/uL High <0.87 [facility] Comment on above: Order Comment: Speci men Type: BLOOD SPECIMENOrdering Facility: [facility] Address: [address] [place] [address] Performed By: #### 5 7021-8 ####[facility] LABCLIA [id number] [address], [facility]95 [place] Monocytes/100 WBC (Bld) 8.7 % Normal [facility] Comment on above: Order Comment: Speci men Type: BLOOD SPECIMENOrdering Facility: [facility] Address: [address] [place] [address] Performed By: #### 5 7021-8 ####[facility] LABCLIA [id number] [address], [facility]95 [place] Neutrophils (Bld) [#/Vol] 14.12 10*3/uL High 1.45-7.50 [facility] Comment on above: Order Comment: Speci men Type: BLOOD SPECIMENOrdering Facility: [facility] Address: [address] [place] [address] Performed By: #### 5 7021-8 ####[facility] LABCLIA [id number] [place] [address] [place] Neutrophils/100 WBC (Bld) 85.2 % Normal [facility] Comment on above: Order Comment: Speci men Type: BLOOD SPECIMENOrdering Facility: [facility] Address: [address] [place] [address] Performed By: #### 5 7021-8 ####[facility] LABCLIA [id number] [place] [address] [place] Nucleated RBC (Bld) [#/Vol] 10*3/uL Normal <0.01 [facility] Comment on above: Order Comment: Speci men Type: BLOOD SPECIMENOrdering Facility: [facility] Address: [address] [place] [address] Performed By: #### 5 7021-8 ####[facility] LABCLIA [id number] [place] [address] [place] Nucleated RBC/100 WBC (Bld) [Ratio] 0.0 /100 WBC Normal [facility] Comment on above: Order Comment: Speci men Type: BLOOD SPECIMENOrdering Facility: [facility] Address: [address] [place] [address] Performed By: #### 5 7021-8 ####[facility] LABCLIA [id number] [place] [address] [place] Ovalocytes LM Ql (Bld) Few Normal Cl [facility] Comment on above: Order Comment: Speci men Type: BLOOD SPECIMENOrdering Facility: [facility] Address: [address] [place] [address] Performed By: #### 5 7021-8 ####[facility] LABIA [id number] [place] [address] [place] Platelet mean volume (Bld) [Entitic vol] 8.5 fL Low 9.0-12.7 [facility] Comment on above: Order Comment: Speci men Type: BLOOD SPECIMENOrdering Facility: [facility] Address: [address] [place] [address] Performed By: #### 5 7021-8 ####[facility] LABCLIA [id number] [address] [place] [address] [place] Platelets (Bld) [#/Vol] 572 10*3/uL High 150-400 [facility] Comment on above: Order Comment: Speci men Type: BLOOD SPECIMENOrdering Facility: [facility] Address: [address] [place] [address] Performed By: #### 5 7021-8 ####[facility] LABCLIA [id number] [address] [place] [address] [place] Platelets Estimate (Bld) [#/Vol] Increased Normal [facility] Comment on above: Order Comment: Speci men Type: BLOOD SPECIMENOrdering Facility: [facility] Address: [address] [place] [address] Performed By: #### 5 7021-8 ####[facility] LABCLIA [id number] [address] [place] [address] [place] RBC (Bld) [#/Vol] 4.10 10*6/uL Normal 3.90-5.20 [facility] Comment on above: Order Comment: Speci men Type: BLOOD SPECIMENOrdering Facility: [facility] Address: [address] [place] [address] Performed By: #### 5 7021-8 ####[facility] LABCLIA [id number] [address] [place] [address] [place] RED CELL MORPH Reviewed: see result s of individual morphologies Normal [facility] Comment on above: Order Comment: Speci men Type: BLOOD SPECIMENOrdering Facility: [facility] Address: [address] [place] [address] Performed By: #### 5 7021-8 ####[facility] LABCLIA [id number] [address] [place] [address] [place] WBC (Bld) [#/Vol] 16.57 10*3/uL High 3.70-11.00 [facility] Comment on above: Order Comment: Speci men Type: BLOOD SPECIMENOrdering Facility: [facility] Address: [address] [place] [address] Performed By: #### 5 7021-8 ####[facility] LABCLIA [id number] JOYCELYNJack CISNEROSDESK [id number] [place] [address] [place] CNOVon 02-09-2025 CNOV Office Visit (INTMWS ) PATY RIOS ([id number]) 1940 F Date Time Provider Department 02/09/25 [...] 75+ se (more content not included)... Normal [facility] Comprehensive metabolic 2000 panelon 02-09-2025 Albumin [Mass/Vol] 3.5 g/dL Low 3.9-4.9 [facility] Comment on above: Order Comment: Speci men Type: BLOOD SPECIMENOrdering Facility: [facility] Address: [address] [place] [address] Performed By: #### 2 4323-8, 3051-0, 3024-7, 3016-3 ####[facility] LABCLIA [id number] [place] [address] [place] ALP [Catalytic activity/Vol] 95 U/L Normal 34-123 [facility] Comment on above: Order Comment: Speci men Type: BLOOD SPECIMENOrdering Facility: [facility] Address: [address] [place] [address] Performed By: #### 2 4323-8, 3051-0, 3024-7, 3016-3 ####[facility] LABCLIA [id number] [place] [address] [place] ALT [Catalytic activity/Vol] 9 U/L Normal 7-38 [facility] Comment on above: Order Comment: Speci men Type: BLOOD SPECIMENOrdering Facility: [facility] Address: [address] [place] [address] Performed By: #### 2 4323-8, 3051-0, 302-7, 6-3 ####[facility] LABIA [id number] [place] [address] [place] Anion gap [Moles/Vol] 17 mmol/L High 8-15 [facility] Comment on above: Order Comment: Speci men Type: BLOOD SPECIMENOrdering Facility: [facility] Address: [address] [place] [address] Performed By: #### 2 4323-8, 3051-0, 302-7, 6-3 ####[facility] LABIA [id number] [place] [address] [place] AST [Catalytic activity/Vol] 13 U/L Normal 13-35 [facility] Comment on above: Order Comment: Speci men Type: BLOOD SPECIMENOrdering Facility: [facility] Address: [address] [place] [address] Performed By: #### 2 4323-8, 3051-0, 302-7, 3016-3 ####[facility] LABCLIA [id number] [address] [address] [place] Bilirubin [Mass/Vol] 0.4 mg/dL Normal 0.2-1.3 [facility] Comment on above: Order Comment: Speci men Type: BLOOD SPECIMENOrdering Facility: [facility] Address: [address] [place] [address] Performed By: #### 2 4323-8, 3051-0, 3024-7, 3016-3 ####[facility] LABCLIA [id number] [facility] [address] [address] [place] Calcium [Mass/Vol] 9.6 mg/dL Normal 8.5-10.2 [facility] Comment on above: Order Comment: Speci men Type: BLOOD SPECIMENOrdering Facility: [facility] Address: [address] [place] [address] Performed By: #### 2 4323-8, 3051-0, 3024-7, 6-3 ####[facility] LABCLIA [id number] [place] [address] [place] Chloride [Moles/Vol] 97 mmol/L Low 98-107 [facility] Comment on above: Order Comment: Speci men Type: BLOOD SPECIMENOrdering Facility: [facility] Address: [address] [place] [address] Performed By: #### 2 4323-8, 3051-0, 302-7, 6-3 ####[facility] LABCLIA [id number] [address] [address] [place] CO2 [Moles/Vol] 23 mmol/L Normal 22-30 [facility] Comment on above: Order Comment: Speci men Type: BLOOD SPECIMENOrdering Facility: [facility] Address: [address] [place] [address] Performed By: #### 2 4323-8, 3051-0, 3024-7, 3016-3 ####[facility] LABCLIA [id number] [facility] [address] [address] [place] Creatinine [Mass/Vol] 1.85 mg/dL High 0.58-0.96 [facility] Comment on above: Order Comment: Tomasz mast Type: BLOOD SPECIMENOrdering Facility: [facility] Address: [address] [place] [address] Performed By: #### 2 4323-8, 3051-0, 3024-7, 3016-3 ####[facility] LABCLIA [id number] [place] [address] [place] eGFRcr SerPlBld CKD-EPI 2020 26 mL/min/1.73m??? Low >=60 [facility] Comment on above: Order Comment: Tomasz mast Type: BLOOD SPECIMENOrdering Facility: [facility] Address: [address] [place] [address] Result Comment: Briana mated Glomerular Filtration Rate [...] By: #### 2 4323-8, 3051-0, 3024-7, 3016-3 ####[facility] LABCLIA [id number] [place] [address] [place] Glucose [Mass/Vol] 110 mg/dL High 74-99 [facility] Comment on above: Order Comment: Tomasz mast Type: BLOOD SPECIMENOrdering Facility: [facility] Address: [address] [place] [address] Result Comment: The [place] Diabetes Association (ADA) provides guidance for cutoff [...] Standards of Medical Care in Diabetes 2016, [place] [employer]. Diabetes Care. 2016.39(Suppl 1). Performed By: #### 2 4323-8, 3051-0, 3024-7, 6-3 ####[facility] LABCLIA [id number] [facility] [address] [address] [place] Potassium [Moles/Vol] 3.6 mmol/L Low 3.7-5.1 [facility] Comment on above: Order Comment: Speci men Type: BLOOD SPECIMENOrdering Facility: [facility] Address: [address] [place] [address] Performed By: #### 2 4323-8, 3051-0, 7, 6-3 ####[facility] LABCLIA [id number] [address] [address] [place] Protein [Mass/Vol] 7.5 g/dL Normal 6.3-8.0 [facility] Comment on above: Order Comment: Tomasz mast Type: BLOOD SPECIMENOrdering Facility: [facility] Address: [address] [place] [address] Performed By: #### 2 4323-8, 3051-0, 7, 6-3 ####[facility] LABCLIA [id number] [address] [address] [place] Sodium [Moles/Vol] 137 mmol/L Normal 136-144 [facility] Comment on above: Order Comment: Speci men Type: BLOOD SPECIMENOrdering Facility: [facility] Address: [address] [place], [place] [address] Performed By: #### 2 4323-8, 305-0, 3023-7, 6-3 ####[facility] LABCLIA [id number] [facility] [address] [address] [place] Urea nitrogen [Mass/Vol] 36 mg/dL High 7-21 [facility] Comment on above: Order Comment: Speci men Type: BLOOD SPECIMENOrdering Facility: [facility] Address: [address] [place] [address] Performed By: #### 2 4323-8, 305-0, 7, 6-3 ####[facility] LABCLIA [id number] [place] [address] [place] T3Free SerPl-mCncon 02-10-20 25 Free T3 [Mass/Vol] 1.8 pg/mL Low 2.3-4.1 [facility] Comment on above: Order Comment: Speci men Type: BLOOD SPECIMENOrdering Facility: [facility] Address: [address] [place] [address] Performed By: #### 2 4323-8, 305-0, 7, 6-3 ####[facility] LABCLIA [id number] [place] [address] [place] T4 Free SerPl-mCncon 025 Free T4 [Mass/Vol] 2.0 ng/dL High 0.9-1.7 [facility] Comment on above: Order Comment: Speci men Type: BLOOD SPECIMENOrdering Facility: [facility] Address: [address] [place] [address] Performed By: #### 2 4323-8, 305-0, 7, 6-3 ####[facility] LABCLIA [id number] [place] [address] [place] TSH SerPl-aCncon 02-09-2025 TSH Qn 0.176 m[IU]/L Low 0.270-4.200 [facility] Comment on above: Order Comment: Speci men Type: BLOOD SPECIMENOrdering Facility: [facility] Address: [address] [place] [address] Performed By: #### 2 4323-8, 305-0, 7, 6-3 ####[facility] LABJUAN J [id number] [address] [place] CNOVon 09-14-2024 CNOV Office Visit (INTMWS ) PATY RIOS ([id number]) 1940 F Date Time Provider Department 09/14/24 [...] Lab/Diagnostic S (more content not included)... Normal [facility] CBC panel Auto (Bld)on 09-08 Erythrocyte distribution width (RBC) [Ratio] 11.7 % Normal 11.5-15.0 [facility] Comment on above: Order Comment: Speci men Type: BLOOD SPECIMENOrdering Facility: [facility] Address: [address] [place] [address] Performed By: #### 5 8410-2 ####[facility]ITALTaylor [id number] [place] [address] [place] Hematocrit (Bld) [Volume fraction] 42.9 % Normal 36.0-46.0 [facility] Comment on above: Order Comment: Speci men Type: BLOOD SPECIMENOrdering Facility: [facility] Address: [address] [place] [address] Performed By: #### 5 8410-2 ####[facility] MLITaylor [id number] [place] [address] [place] Hemoglobin (Bld) [Mass/Vol] 14.0 g/dL Normal 11.5-15.5 [facility] Comment on above: Order Comment: Speci men Type: BLOOD SPECIMENOrdering Facility: [facility] Address: [address] [place] [address] Performed By: #### 5 8410-2 ####[facility] MTaylor [id number] [place] [address] [place] MCH (RBC) [Entitic mass] 32.2 pg Normal 26.0-34.0 [facility] Comment on above: Order Comment: Speci men Type: BLOOD SPECIMENOrdering Facility: [facility] Address: [address] [place] [address] Performed By: #### 5 8410-2 ####[facility] [id number] [place] [address] [place] MCHC (RBC) [Mass/Vol] 32.6 g/dL Normal 30.5-36.0 [facility] Comment on above: Order Comment: Speci men Type: BLOOD SPECIMENOrdering Facility: [facility] Address: [address] [place] [address] Performed By: #### 5 8410-2 ####[facility] [id number] [place] [address] [place] MCV (RBC) [Entitic vol] 98.6 fL Normal 80.0-100.0 [facility] Comment on above: Order Comment: Speci men Type: BLOOD SPECIMENOrdering Facility: [facility] Address: [address] [place] [address] Performed By: #### 5 8410-2 ####[facility] [id number] [address] [place] Nucleated RBC (Bld) [#/Vol] 10*3/uL Normal <0.01 [facility] Comment on above: Order Comment: Speci men Type: BLOOD SPECIMENOrdering Facility: [facility] Address: [address] [place] [address] Performed By: #### 5 8410-2 ####[facility] [id number] [place] [address] [place] Platelet mean volume (Bld) [Entitic vol] 8.7 fL Low 9.0-12.7 [facility] Comment on above: Order Comment: Speci men Type: BLOOD SPECIMENOrdering Facility: [facility] Address: [address] [place] [address] Performed By: #### 5 8410-2 ####[facility] WESTNCLIA [id number] [place] [address] [place] Platelets (Bld) [#/Vol] 272 10*3/uL Normal 150-400 [facility] Comment on above: Order Comment: Speci men Type: BLOOD SPECIMENOrdering Facility: [facility] Address: [address] [place] [address] Performed By: #### 5 8410-2 ####[facility] WESTNCA [id number] [place] [address] [place] RBC (Bld) [#/Vol] 4.35 10*6/uL Normal 3.90-5.20 [facility] Comment on above: Order Comment: Speci men Type: BLOOD SPECIMENOrdering Facility: [facility] Address: [address] [place] [address] Performed By: #### 5 8410-2 ####[facility] WESTNCLIA [id number] [place] [address] [place] WBC (Bld) [#/Vol] 4.49 10*3/uL Normal 3.70-11.00 [facility] Comment on above: Order Comment: Speci men Type: BLOOD SPECIMENOrdering Facility: [facility] Address: [address] [place] [address] Performed By: #### 5 8410-2 ####[facility] WESTNCLIA [id number] [place] [address] [place] Comprehensive metabolic 2000 panelon 09-08-2024 Albumin [Mass/Vol] 4.1 g/dL Normal 3.9-4.9 [facility] Comment on above: Order Comment: Speci men Type: BLOOD SPECIMENOrdering Facility: [facility] Address: [address] [place] [address] Performed By: #### 2 4331-1 ####[facility]ORATORYCLIA [id number] [address] OF [facility]OREYST[facility] ENIDLIA [id number] [place] [address] [place]#### 98834-5 ####[facility] MILLWNCLIA [id number] [place] [address] [place]#### 3016-3 ####[facility]ORATORYCLIA [id number] [place] [address] [place] ALP [Catalytic activity/Vol] 59 U/L Normal 34-123 [facility] Comment on above: Order Comment: Speci men Type: BLOOD SPECIMENOrdering Facility: [facility] Address: [address] [place] [address] Performed By: #### 2 4331-1 ####[facility]ORATORYCLIA [id number] [address] OF [facility] HOSPITALLIA [id number] [place] [address] [place]#### 27448-7 ####[facility] MILLTOWNCLIA [id number] [place] [address] [place]#### 3016-3 ####[facility]ORATORYCLIA [id number] [place] [address] [place] ALT [Catalytic activity/Vol] 6 U/L Low 7-38 [facility] Comment on above: Order Comment: Speci men Type: BLOOD SPECIMENOrdering Facility: [facility] Address: [address] [place] [address] Performed By: #### 2 4331-1 ####[facility]ORATORYCLIA [id number] [place], [place] [address] [place] [address] STATES OF [facility] C[facility] MILLTOWNCLIA [id number] [place] [address] [place]#### 83647-6 ####[facility] MILLTOWNCLIA [id number] [place] [address] [place]#### 3016-3 ####[facility]ORATORYCLIA [id number] [place] [address] [place] Anion gap [Moles/Vol] 13 mmol/L Normal 8-15 [facility] Comment on above: Order Comment: Speci men Type: BLOOD SPECIMENOrdering Facility: [facility] Address: [address] [place] [address] Performed By: #### 2 4331-1 ####[facility]ORATORYCLIA [id number] [address] STATES OF [facility] C[facility] MILLTOWNCLIA [id number] [place] [address] [place]#### 93737-0 ####[facility] MILLTOWNCLIA [id number] [place] [address] [place]#### 3016-3 ####[facility]ORATORYCLIA [id number] [address] [place] AST [Catalytic activity/Vol] 15 U/L Normal 13-35 [facility] Comment on above: Order Comment: Speci men Type: BLOOD SPECIMENOrdering Facility: [facility] Address: [address] [place] [address] Performed By: #### 2 4331-1 ####[facility]ATORYCLIA [id number] [address] STATES OF [facility] MILLTOWNCLIA [id number] [place] [address] [place]#### 87863-1 ####[facility] MILLTOWNCLIA [id number] [place] [address] [place]#### 3016-3 ####[facility]ORATORYCLIA [id number] [place] [address] [place] Bilirubin [Mass/Vol] 0.6 mg/dL Normal 0.2-1.3 [facility] Comment on above: Order Comment: Speci men Type: BLOOD SPECIMENOrdering Facility: [facility] Address: [address] [place] [address] Performed By: #### 2 4331-1 ####[facility]ORATORYCLIA [id number] [place] [address] [place] [facility]AM[facility] COREY MILLTOWNCLIA [id number] [place] [address] [place]#### 26849-7 ####[facility] MILLTOWNCLIA [id number] [place] [address] [place]#### 3016-3 ####[facility]ORATORYCLIA [id number] [place] [address] [place] Calcium [Mass/Vol] 9.3 mg/dL Normal 8.5-10.2 [facility] Comment on above: Order Comment: Speci men Type: BLOOD SPECIMENOrdering Facility: [facility] Address: [address] [place] [address] Performed By: #### 2 4331-1 ####[facility]ORATORYCLIA [id number] [address] STATES OF AMERICAMER[facility] COREY MILLTOWNCLIA [id number] [place] [address] [place]#### 88049-9 ####[facility] MILLTOWNCLIA [id number] [place] [address] [place]#### 3016-3 ####[facility]ORATORYCLIA [id number] [place] [address] [place] Chloride [Moles/Vol] 101 mmol/L Normal 98-107 [facility] Comment on above: Order Comment: Speci men Type: BLOOD SPECIMENOrdering Facility: [facility] Address: [address] [place] [address] Performed By: #### 2 4331-1 ####[facility]ORATORYCLIA [id number] [address] STATES OF [facility] CORE[place] MILLTOWNCLIA [id number] [place] [address] [place]#### 13245-3 ####[facility] MILLTOWNCLIA [id number] [place] [address] [place]#### 3016-3 ####[facility]ORATORYCLIA [id number] [place] [address] [place] CO2 [Moles/Vol] 26 mmol/L Normal 22-30 [facility] Comment on above: Order Comment: Speci men Type: BLOOD SPECIMENOrdering Facility: [facility] Address: [address] [place] [address] Performed By: #### 2 4331-1 ####[facility] LABORATORYCLIA [id number] [address] STATES OF [facility] COREY MILLTOWNCLIA [id number] [place] [address] [place]#### 46435-0 ####[facility] COREY MILLTOWNCLIA [id number] [place] [address] [place]#### 3016-3 ####[facility]ORATORYCLIA [id number] [place] [address] Creatinine [Mass/Vol] 0.63 mg/dL Normal 0.58-0.96 [facility] Comment on above: Order Comment: Tomasz mast Type: BLOOD SPECIMENOrdering Facility: [facility] Address: [address] [place] [address] Performed By: #### 2 4331-1 ####[facility] LABORATORYCLIA [id number] [address] [id number] [address]#### 37855-2 ####[facility]OSPITALLIA [id number] [address]#### 3016-3 ####[facility]ENTER[facility] [id number] [address] Creatinine and Glomerular filtration rate.predicted panel (S/P/Bld) 87 mL/min/1.73m??? Normal >=60 [facility] Comment on above: Order Comment: Tomasz mast Type: BLOOD SPECIMENOrdering Facility: [facility] Address: [address] [place] [address] Result Comment: Briana mated Glomerular Filtration Rate [...] actual GFR. Performed By: #### 2 4331-1 ####[facility] LABORATORYCLIA [id number] [address] [id number] [address] [place] OF [place]#### 73531-7 ####[facility] [id number] [place] [address] [place]#### 3016-3 ####[facility] LABORATORYCLIA [id number] [place] [address] [place] Glucose [Mass/Vol] 96 mg/dL Normal 74-99 [facility] Comment on above: Order Comment: Speci men Type: BLOOD SPECIMENOrdering Facility: [facility] Address: [address] [place], [place] [address] Result Comment: The [place] Diabetes Association (ADA) provides guidance for cutoff [...] Standards of Medical Care in Diabetes 2016, [place] Diabetes Association. Diabetes Care. 2016.39(Suppl 1). Performed By: #### 2 4331-1 ####[facility] LABORATORYCLIA [id number] [place] [address] [place] [facility]AD[facility] [id number] [place] [address] [place]#### 71687-0 ####[facility] [id number] [place] [address] [place]#### 3016-3 ####[facility] LABORATORYCLIA [id number] [place] [address] [place] Potassium [Moles/Vol] 3.5 mmol/L Low 3.7-5.1 [facility] Comment on above: Order Comment: Speci men Type: BLOOD SPECIMENOrdering Facility: [facility] Address: [address] [place] [address] Performed By: #### 2 4331-1 ####[facility]ATORYCLIA [id number] [address] OF [facility] COREY MILLTOWNCLIA [id number] [address] STATES OF [place]#### 31538-2 ####[facility] MILLTOWNCLIA [id number] [place] [address] [place]#### 3016-3 ####[facility]ATORYCLIA [id number] [place] [address] [place] Protein [Mass/Vol] 6.8 g/dL Normal 6.3-8.0 [facility] Comment on above: Order Comment: Speci men Type: BLOOD SPECIMENOrdering Facility: [facility] Address: [address] [place] [address] Performed By: #### 2 4331-1 ####[facility]ATORYCLIA [id number] [address] COREYST. MARY'[facility] – ENIDLIA [id number] [address] STATES OF [place]#### 37653-5 ####[facility]TON[facility] BEACHWNCLIA [id number] [address] [place]#### 3016-3 ####[facility]ATORYCLIA [id number] [place] [address] [place] Sodium [Moles/Vol] 140 mmol/L Normal 136-144 [facility] Comment on above: Order Comment: Speci men Type: BLOOD SPECIMENOrdering Facility: [facility] Address: [address] [place] [address] Performed By: #### 2 4331-1 ####[facility]ATORYCLIA [id number] [address] STATES OF AMERICACLEVELAND ST. LUKE'S HOSPITALWMNLIA [id number] [place] [address] [place]#### 28776-1 ####[facility] BEACHWNCLIA [id number] [place] [address] [place]#### 3016-3 ####[facility]ATORYCLIA [id number] [address] [place] Urea nitrogen [Mass/Vol] 13 mg/dL Normal 7-21 [facility] Comment on above: Order Comment: Speci men Type: BLOOD SPECIMENOrdering Facility: [facility] Address: [address] [place] [address] Performed By: #### 2 4331-1 ####[facility]ATORYCLIA [id number] [place] [address] [place] AMERICABAPTIST HEALTH [facility] HOSPITALA [id number] [place] [address] [place]#### 50523-7 ####[facility]OSPITALLIA [id number] [place] [address] [place]#### 3016-3 ####[facility]ATORYCLIA [id number] [place] [address] [place] Lipid 1996 panelon 5 Cholesterol [Mass/Vol] 141 mg/dL Normal <200 [facility] Comment on above: Order Comment: Speci men Type: BLOOD SPECIMENOrdering Facility: [facility] Address: [address] [place] [address] Result Comment: <200 mg/dL, Desirable 200-239 mg/dL, Borderline high >239 mg/dL, High Performed By: #### 2 4331-1 ####[facility]ATORYCLIA [id number] [address] STATES OF AMERICAPOMERENE HOSPITALLIA [id number] [address] [place]#### 85111-4 ####[facility] WESTNCLIA [id number] [address] [place]#### 3016-3 ####[facility]ORATORYCLIA [id number] [address] Cholesterol in HDL [Mass/Vol] 37 mg/dL Low >39 [facility] Comment on above: Order Comment: Speci men Type: BLOOD SPECIMENOrdering Facility: [facility] Address: [address] [place] [address] Result Comment: 40-5 9 mg/dL, Acceptable >59 mg/dL, High: Negative risk factor for coronary heart disease <40 mg/dL, Low: Positive risk factor for coronary heart disease Performed By: #### 2 4331-1 ####[facility]ATORYCLIA [id number] [address] STATES OF [facility] HOSPITALWMNLIA [id number] [address] OF [place]#### 05750-0 ####[facility] WESTNCLIA [id number] [address] [place]#### 3016-3 ####[facility]ORYCLIA [id number] [address] Cholesterol in LDL [Mass/Vol] 68 mg/dL Normal <100 [facility] Comment on above: Order Comment: Speci men Type: BLOOD SPECIMENOrdering Facility: [facility] Address: [address] [place] [address] Result Comment: <100 mg/dL, Optimal 100-129 mg/dL, Near optimal/above optimal 130-159 mg/dL, Borderline high 160-189 mg/dL, High >189 mg/dL, Very high Secondary prevention optimal LDL Cholesterol levels are recommended to be < 70 mg/dL Performed By: #### 2 4331-1 ####[facility]ORATORYCLIA [id number] [place], [place] [address] [place] [address] [id number] [place] [address] [place]#### 95535-7 ####[facility]OSPITALLIA [id number] [place] [address] [place]#### 3016-3 ####[facility] LABORATORYCLIA [id number] [place] [id number] [place] Cholesterol in LDL/Cholesterol in HDL [Mass ratio] 1.84 {ratio} Normal <2.54 [facility] Comment on above: Order Comment: Speci men Type: BLOOD SPECIMENOrdering Facility: [facility] Address: [address] [place] [address] Result Comment: Refe rence: 1. National Cholesterol Education Program ATP III Guideline At-A-Glance Quick Desk Reference: National Heart, Lung, and Blood [place]. National Institutes of Health. 2001: NIH Publication No. 01-3305. 2. An International Atherosclerosis Society position paper: global recommendations for the management of dyslipidemia: executive summary, Atherosclerosis. 2014: 232(2):410-413. Performed By: #### 2 4331-1 ####[facility] LABORATORYCLIA [id number] [address] STATES OF [facility] [id number] [place] [address] [place]#### 64430-6 ####[facility]OSPITALLIA [id number] [place] [address] [place]#### 3016-3 ####[facility] LABORATORYCLIA [id number] [address] [place] Cholesterol in VLDL [Mass/Vol] 36 mg/dL High <30 [facility] Comment on above: Order Comment: Speci men Type: BLOOD SPECIMENOrdering Facility: [facility] Address: [address] [place] [id number] Performed By: #### 2 4331-1 ####[facility]ATORYCLIA [id number] [address] [id number] [address] [place]#### 13875-0 ####[facility]OSPITALLIA [id number] [address] OF [place]#### 3016-3 ####[facility] LABORATORYCLIA [id number] [address] STATES [facility] Cholesterol non HDL [Mass/Vol] 104 mg/dL Normal <130 [facility] Comment on above: Order Comment: Speci men Type: BLOOD SPECIMENOrdering Facility: [facility] Address: [address] [place] [address] Result Comment: <130 mg/dL, Optimal 130-159 mg/dL, Near optimal/above optimal 160-189 mg/dL, Borderline high 190-219 mg/dL, High >219 mg/dL, Very high Secondary prevention optimal non HDL Cholesterol levels are recommended to be <100 mg/dL Performed By: #### 2 4331-1 ####[facility]ATORYCLIA [id number] [address] [id number] [address] OF [place]#### 47526-1 ####[facility]OSPITALLIA [id number] [place] [address] [facility] [place]#### 3016-3 ####[facility]ATORYCLIA [id number] [address] STATES [place] Cholesterol.total/Choles terol in HDL [Mass ratio] 3.81 {ratio} Normal <5.10 [facility] Comment on above: Order Comment: Speci men Type: BLOOD SPECIMENOrdering Facility: [facility] Address: [address] [place] [address] Performed By: #### 2 4331-1 ####[facility]ATORYCLIA [id number] [address] STATES OF [facility] COREYRUTLAND REGION[facility] MEDICAL CENTERWNCLIA [id number] [place] [address] [place]#### 97460-2 ####[facility] MILLTOWNCLIA [id number] [place] [address] [place]#### 3016-3 ####[facility]ORATORYCLIA [id number] [address] STATES OF [place] FASTING TIME 14 hrs Normal [facility] Comment on above: Order Comment: Speci men Type: BLOOD SPECIMENOrdering Facility: [facility] Address: [address] [place] [address] Performed By: #### 2 4331-1 ####[facility]ATORYCLIA [id number] [address] STATES OF [facility] COREYRUTLAND REGIONAL MEDICAL CENTERWNCLIA [id number] [address] [place]#### 62258-5 ####[facility]ACHWNCLIA [id number] [address] [place]#### 3016-3 ####[facility]ATORYCLIA [id number] [place] [address] [place] Triglyceride [Mass/Vol] 182 mg/dL High <150 [facility] Comment on above: Order Comment: Speci men Type: BLOOD SPECIMENOrdering Facility: [facility] Address: [address] [place] [address] Result Comment: <150 mg/dL, Normal 150-199 mg/dL, Borderline high 200-499 mg/dL, High >499 mg/dL, Very high Performed By: #### 2 4331-1 ####[facility] LABORATORYCLIA [id number] [address] [id number] [address] OF [facility]#### 97636-7 ####[facility]OSPITALLIA [id number] [address]#### 3016-3 ####[facility] LABORATORYCLIA [id number] [address] [place] TSH SerPl-aCncon 09-08-2024 TSH Qn 0.154 m[IU]/L Low 0.270-4.200 [facility] Comment on above: Order Comment: Speci men Type: BLOOD SPECIMENOrdering Facility: [facility] Address: [address] [place] [address] Performed By: #### 2 4331-1 ####[facility] LABORATORYCLIA [id number] [address] [id number] [address]#### 52717-3 ####[facility]OSPITALLIA [id number] [address]#### 3016-3 ####[facility] LABORATORYCLIA [id number] [address] OF [place] Louis 04-28-2024 SHANNONN Telephone (KANDIMWS) PATY [id number]) 1940 F Date Time Provider Department 04/28/24 [...] AGE 6MO-64YR, TRIVALENT (AFLURIA, FLULAVAL, FLUVIRIN, FLUZONE) [[id number]] Order #: [id number] Prescriptions as of 04/29/2024 - losartan (COZAAR) [...] Status:Closed by KARRIE RUSSO on 04/29/24 Normal [facility] Louis 03-19-2024 LALITO Telephone (ELSA) PATY RIOS ([id number]) 1940 F Date Time Provider Department 03/19/24 [...] patient to call office back for results Lyndasy Dunn LPN March 19, 2024 10:12 AM Muriel Child LPN 03/19/2024 3:08 PM Signed Patient returned call and went over results, notes from Martha Funk REVISING CLERK with understanding. Patient said she was not fasting for the lab work. Martha Funk APRN.CNP 03/22/2024 7:20 AM Signed Then no concerns on blood work. Thank you Martha Funk, CONCRETE ROD BUSTER.OPERATOR PREFINISH Allergies As of Date: 03/19/2024 Noted Allergy [...] Status:Closed by JO THOMAS on 03/22/24 Normal [facility] Basic metabolic 2000 panelon 03-18-2024 Anion gap [Moles/Vol] 11 mmol/L Normal 8-15 [facility] Comment on above: Order Comment: Speci men Type: BLOOD SPECIMENOrdering Facility: [facility] Address: [address] [place] [address] Performed By: #### 3 051-0, 95332-4, 302-7, 3016-3 ####[facility] LABCLIA [id number] [place] [address] [place] Calcium [Mass/Vol] 9.5 mg/dL Normal 8.5-10.2 [facility] Comment on above: Order Comment: Speci men Type: BLOOD SPECIMENOrdering Facility: [facility] Address: [address] [place] [address] Performed By: #### 3 051-0, 96022-5, 7, 3015-3 ####[facility] LABCLIA [id number] [place] [address] [place] Chloride [Moles/Vol] 99 mmol/L Normal 98-107 [facility] Comment on above: Order Comment: Speci men Type: BLOOD SPECIMENOrdering Facility: [facility] Address: [address] [place] [address] Performed By: #### 3 051-0, 46227-7, 3023-7, 6-3 ####[facility] LABCLIA [id number] [address] [address] [place] CO2 [Moles/Vol] 30 mmol/L Normal 22-30 [facility] Comment on above: Order Comment: Speci men Type: BLOOD SPECIMENOrdering Facility: [facility] Address: [address] [place] [address] Performed By: #### 3 051-0, 28770-9, 302-7, 3016-3 ####[facility] LABCLIA [id number] [place] [address] [place] Creatinine [Mass/Vol] 0.70 mg/dL Normal 0.58-0.96 [facility] Comment on above: Order Comment: Tomasz mast Type: BLOOD SPECIMENOrdering Facility: [facility] Address: [address] [place] [address] Performed By: #### 3 051-0, 43663-2, 3024-7, 3016-3 ####[facility] LABIA [id number] [place] [address] [place] Creatinine and Glomerular filtration rate.predicted panel (S/P/Bld) 85 mL/min/1.73m??? Normal >=60 [facility] Comment on above: Order Comment: Tomasz mast Type: BLOOD SPECIMENOrdering Facility: [facility] Address: [address] [place] [address] Result Comment: Briana mated Glomerular Filtration Rate [...] actual GFR. Performed By: #### 3 051-0, 99340-1, 3024-7, 6-3 ####[facility] LABIA [id number] [place] [address] [place] Glucose [Mass/Vol] 113 mg/dL High 74-99 [facility] Comment on above: Order Comment: Tomasz men Type: BLOOD SPECIMENOrdering Facility: [facility] Address: [address] [place] [address] Result Comment: The [place] Diabetes Association (ADA) provides guidance for cutoff [...] Standards of Medical Care in Diabetes 2016, [place] Diabetes Association. Diabetes Care. 2016.39(Suppl 1). Performed By: #### 3 051-0, 56048-6, 7, 3015-3 ####[facility] LABCLIA [id number] [place] [address] [place] Potassium [Moles/Vol] 4.2 mmol/L Normal 3.7-5.1 [facility] Comment on above: Order Comment: Speci men Type: BLOOD SPECIMENOrdering Facility: [facility] Address: [address] [place] [address] Performed By: #### 3 051-0, 97584-3, 3024-01, 3015-3 ####[facility] LABCLIA [id number] [place] [address] [place] Sodium [Moles/Vol] 140 mmol/L Normal 136-144 [facility] Comment on above: Order Comment: Speci men Type: BLOOD SPECIMENOrdering Facility: [facility] Address: [address] [place] [address] Performed By: #### 3 051-0, 67310-1, 3024-01, 3015-3 ####[facility] LABCLIA [id number] [place] [id number] [place] Urea nitrogen [Mass/Vol] 10 mg/dL Normal 7-21 [facility] Comment on above: Order Comment: Speci men Type: BLOOD SPECIMENOrdering Facility: [facility] Address: [address] [place] [address] Performed By: #### 3 051-0, 55956-9, 7, 3015-3 ####[facility] LABCLIA [id number] JOYCELYNJack [address] [address] [place] CNOVon 03-18-2024 CNOV Office Visit (INTMWS ) PATY RIOS ([id number]) 1940 F Date Time Provider Department 03/18/24 8:00 AM MARTHA FUNK During your visit today, we recorded the following information about you: Pulse Respiration Blood pressure Weight 76/minute 16/minute 122/68 48.4 kg Martha Funk APRN.OPERATOR PREFINISH 03/18/2024 8:34 AM Signed CC: Patient presents [...] to brin (more content not included)... Normal [facility] T3Free SerPl-mCncon 03-18-20 24 Free T3 [Mass/Vol] 2.6 pg/mL Normal 2.3-4.1 [facility] Comment on above: Order Comment: Tomasz mast Type: BLOOD SPECIMENOrdering Facility: [facility] Address: [address] [place] [address] Performed By: #### 3 051-0, 75203-0, 3024-7, 3016-3 ####[facility] LABCLIA [id number] [facility] [id number] [place] [address] [place] T4 Free SerPl-mCncon 024 Free T4 [Mass/Vol] 1.6 ng/dL Normal 0.9-1.7 [facility] Comment on above: Order Comment: Speci men Type: BLOOD SPECIMENOrdering Facility: [facility] Address: [address] [place] [address] Performed By: #### 3 051-0, 79642-3, 3024-7, 3016-3 ####[facility] LABCLIA [id number] [place] [address] [place] TSH SerPl-aCncon 03-18-2024 TSH Qn 1.860 m[IU]/L Normal 0.270-4.200 [facility] Comment on above: Order Comment: Speci men Type: BLOOD SPECIMENOrdering Facility: [facility] Address: [address] [place], [place] [address] [address] Performed By: #### 3 051-0, 55125-7, 3024-7, 3016-3 ####[facility] LABCLIA [id number] [address] OF [place] CNPVivian 03-06-2024 [facility] PATY RIOS ([id number]) 1940 F Date Time Provider Department 03/06/24 [facility] During your visit today, we recorded the following information about you: Stephanie García APRN.CNP 03/06/2024 1:04 PM Signed Called with patient informed that culture revealed shingles. GFR 72, started on Valtrex. Recommend to call ENT on Friday for evaluation. Tylenol/ibuprofen as needed for pain. Stephanie García APRN.OPERATOR PREFINISH Allergies As of Date: 03/06/2024 Noted Allergy [...] Encounter Status:Closed by STEPHANIE GARCÍA on 03/06/24 [facility] CNOVon 03-05-2024 CNOV Office Visit (UCWSTR ) PATY RIOS ([id number]) 1940 F Date Time Provider Department 03/05/24 7:45 AM STEPHANIE GARCÍA [facility] During your visit today, we recorded the following information about you: Temperature Pulse Respiration Blood pressure 99.2 degrees 66/minute 18/minute 170/74 Weight 50.6 kg Stephanie García APRN.OPERATOR PREFINISH 03/05/2024 8:46 AM Signed Subjective The history is provided by the patient. No language and literature division chair was used. HPI Paty Rios is a [...] have confirmed and edited as necessary, the [facility] Review of Systems Constitutional: Negative [...] 0 HSV1,2/VZV NAAT LESION [SQHSVVZV] Order #: [id number] FUTURE HSV1,2/VZV NAAT LESION [SQHSVVZV] Order #: [id number]. #:[id number] Prescriptions as of 03/05/2024 - ofloxacin (FLOXIN) [...] [I10] 04/01/2005 (more content not included)... Normal [facility] HSV+VZV DNA PRABHJOT+probe Ql (Un sp spec)on 03-05-2024 HSV 1 DNA PRABHJOT+probe Ql (Unsp spec) Not detected Normal Not Detected [facility] Comment on above: Order Comment: Speci men Type: SWABOrdering Facility: [facility] Address: [address] [place] [address] Performed By: #### 3 3027-4 ####[facility] LABCLIA [id number] [address] STATES [place] HSV 2 DNA PRABHJOT+probe Ql (Unsp spec) Not detected Normal Not Detected [facility] Comment on above: Order Comment: Speci men Type: SWABOrdering Facility: [facility] Address: [address] [place] [address] Performed By: #### 3 3027-4 ####[facility] LABCLIA [id number] [address] [place] VZV DNA PRABHJOT+probe Ql (Unsp spec) Detected Abnormal Not Detected [facility] Comment on above: Order Comment: Speci men Type: SWABOrdering Facility: [facility] Address: [address] [place] [address] Performed By: #### 3 3027-4 ####[facility] LABCLIA [id number] [address] [place] CNOVon 03-03-2024 CNOV Office Visit (WSTR ) PATY RIOS ([id number]) 1940 F Date Time Provider Department 03/03/24 2:30 PM CLAUDIO CAVAZOS [facility] During your visit today, we recorded the following information about you: Temperature Pulse Respiration Blood pressure 98.9 degrees 77/minute 21/minute 160/76 Weight 50.9 kg Claudio Cavazos APRN.OPERATOR PREFINISH 03/03/2024 2:44 PM Signed Subjective Patient came [...] history is provided by the patient. No language and literature division chair was used. Rash Review of Systems Constitutional: [...] times when brands were switched. Claudio Cavazos APRN.OPERATOR PREFINISH Allergies As of Date: 03/03/2024 Noted Allergy [...] once daily. (more content not included)... Normal [facility] Vital Signs Date Time Vital Sign Value Performing Clinician Facility 02-14-2025 14:56-0400 Body temperature 96.3 [degF] Dr. Russ Barone MD Work Phone: 2(478)[phone] [place] [address] 02-14-2025 14:56-0400 Diastolic blood pressure 48 mm[Hg] Dr. Russ Barone MD Work Phone: 7(883)[phone] [place] [address] 02-14-2025 14:56-0400 Heart rate 74 /min Dr. Russ Barone MD Work Phone: 7(623)373-703180 [place] [address] 02-14-2025 14:56-0400 Respiratory rate 17 /min Dr. Russ Barone MD Work Phone: 0(707)393-915180 [place] [address] 02-14-2025 14:56-0400 SaO2% (BldA) [Mass fraction] 98 % Dr. Russ Barone MD Work Phone: 5(223)[phone] [place] [address] 02-14-2025 14:56-0400 Systolic blood pressure 135 mm[Hg] Dr. Russ Barone MD Work Phone: 4(497)679-242580 [place] [address] 02-14-2025 10:02-0400 Body height 152.[address] Russ Barone MD Work Phone: [phone] [place] [address] 02-14-2025 10:02-0400 Body mass index (BMI) [Ratio] 18.4 kg/m2 Dr. Russ Barone MD Work Phone: [phone] [place] [address] 02-14-2025 10:02-0400 Body weight 42.[address] Russ Barone MD Work Phone: [phone] [place] [address] 02-10-2025 18:37-0400 Diastolic blood pressure 59 mm[Hg] Dr. Russ Barone MD Work Phone: 5([phone])356-450880 [place] [address] 02-10-2025 18:37-0400 Heart rate 80 /min Dr. Russ Barone MD Work Phone: 3(542)209-890380 [place] [address] 02-10-2025 18:37-0400 Respiratory rate 18 /min Dr. Russ Barone MD Work Phone: 9(172)588-785780 [place] [address] 02-10-2025 18:37-0400 SaO2% (BldA) [Mass fraction] 95 % Dr. Russ Barone MD Work Phone: 4(141)654-559697 [place] [address] 02-10-2025 18:37-0400 Systolic blood pressure 140 mm[Hg] Dr. Russ Barone MD Work Phone: 4(692)284-380880 [place] [address] 02-10-2025 16:38-0400 Body height 152.[address] Russ Barone MD Work Phone: 2(635)233-621780 [place] [address] 02-10-2025 16:38-0400 Body mass index (BMI) [Ratio] 19.1 kg/m2 Dr. Russ Barone MD Work Phone: 8(016)474-990880 [place] [address] 02-10-2025 16:38-0400 Body temperature 97.4 [degF] Dr. Russ Barone MD Work Phone: 6(238)705-166880 [place] [address] 02-10-2025 16:38-0400 Body weight 44.[address] Russ Barone MD Work Phone: 0(264)704-597880 [place] [address] 09-14-2024 08:00-0400 Body height 150 cm Russ Barone MD Work Phone: [facility] 09-14-2024 08:00-0400 Body mass index (BMI) [Ratio] 21.57 kg/m2 Russ Barone MD Work Phone: 7(137)466-242255 [place] [address] 09-14-2024 08:00-0400 Body weight 48.53 kg Russ Barone MD Work Phone: [facility] 09-14-2024 08:00-0400 Diastolic blood pressure 68 mm[Hg] Russ Barone MD Work Phone: [facility] 09-14-2024 08:00-0400 Heart rate 73 /min Russ Barone MD Work Phone: [facility] 09-14-2024 08:00-0400 SaO2% (BldA) [Mass fraction] 97 % Russ Barone MD Work Phone: [facility] 09-14-2024 08:00-0400 Systolic blood pressure 118 mm[Hg] Russ Barone MD Work Phone: [facility] 03-18-2024 07:59-0400 Body mass index (BMI) [Ratio] 20.84 kg/m2 Martha Older CONCRETE ROD BUSTER.OPERATOR [employer] Work Phone: [facility] 03-18-2024 07:59-0400 Body weight 48.4 kg Martha Older CONCRETE ROD BUSTER.OPERATOR [employer]INISH Work Phone: [facility] 03-18-2024 07:59-0400 Diastolic blood pressure 68 mm[Hg] Martha Older CONCRETE ROD BUSTER.OPERATOR [employer]ISH Work Phone: [facility] 03-18-2024 07:59-0400 Heart rate 76 /min Martha Older CONCRETE ROD BUSTER.OPERATOR [employer]INISH Work Phone: [facility] 03-18-2024 07:59-0400 Respiratory rate 16 /min Martha Older CONCRETE ROD BUSTER.OPERATOR [employer]ISH Work Phone: [facility] 03-18-2024 07:59-0400 SaO2% (BldA) [Mass fraction] 94 % Martha Older CONCRETE ROD BUSTER.OPERATOR [employer]INISH Work Phone: [facility] 03-18-2024 07:59-0400 Systolic blood pressure 122 mm[Hg] Martha Older CONCRETE ROD BUSTER.OPERATOR [employer]ISH Work Phone: [facility] 03-05-2024 07:44-0400 Body mass index (BMI) [Ratio] 21.79 kg/m2 Stephanie Ricky CONCRETE ROD BUSTER.OPERATOR [employer] Work Phone: [facility] 03-05-2024 07:44-0400 Body temperature 99.19 [degF] Stephanie Ricky CONCRETE ROD BUSTER.OPERATOR [employer] Work Phone: [facility] 03-05-2024 07:44-0400 Body weight 50.6 kg Stephanie Ricky CONCRETE ROD BUSTER.OPERATOR [employer] Work Phone: [facility] 03-05-2024 07:44-0400 Diastolic blood pressure 74 mm[Hg] Stephanie Ricky CONCRETE ROD BUSTER.OPERATOR [employer] Work Phone: [facility] 03-05-2024 07:44-0400 Heart rate 66 /min Stephanie García APRN.OPERATOR [employer] Work Phone: [facility] 03-05-2024 07:44-0400 Respiratory rate 18 /min Stephanie García APRN.OPERATOR [employer] Work Phone: [facility] 03-05-2024 07:44-0400 SaO2% (BldA) [Mass fraction] 96 % Stephanie García APRN.OPERATOR [employer] Work Phone: [facility] 03-05-2024 07:44-0400 Systolic blood pressure 170 mm[Hg] Stephanie García APRN.OPERATOR [employer] Work Phone: [facility] 03-03-2024 14:27-0400 Body mass index (BMI) [Ratio] 21.92 kg/m2 Claudio Cavazos APRN.OPERATOR [employer] Work Phone: [facility] 03-03-2024 14:27-0400 Body temperature 98.91 [degF] Claudio Cavazos APRN.OPERATOR [employer]INISH Work Phone: [facility] 03-03-2024 14:27-0400 Body weight 50.9 kg Claudio Cavazos APRN.OPERATOR P[employer]INISH Work Phone: [facility] 03-03-2024 14:27-0400 Diastolic blood pressure 76 mm[Hg] Claudio Cavazos APRN.OPERATOR P[employer]INISH Work Phone: [facility] 03-03-2024 14:27-0400 Heart rate 77 /min Claudio Cavazos APRN.OPERATOR P[employer]INISH Work Phone: [facility] 03-03-2024 14:27-0400 Respiratory rate 21 /min Claudio Cavazos APRN.OPERATOR [employer]INISH Work Phone: [facility] 03-03-2024 14:27-0400 SaO2% (BldA) [Mass fraction] 97 % Claudio Cavazos APRN.OPERATOR [employer]INISH Work Phone: [facility] 03-03-2024 14:27-0400 Systolic blood pressure 160 mm[Hg] Claudio Cavazos APRN.OPERATOR [employer]INISH Work Phone: [facility] 09-17-2023 08:01-0400 Body weight 49.9 kg Martha Older CONCRETE ROD BUSTER.OPERATOR [employer] Work Phone: [facility] 09-17-2023 08:01-0400 Diastolic blood pressure 76 mm[Hg] Martha Older CONCRETE ROD BUSTER.OPERATOR [employer]INISH Work Phone: [facility] 09-17-2023 08:01-0400 Heart rate 64 /min Martha Older CONCRETE ROD BUSTER.OPERATOR [employer]INISH Work Phone: [facility] 09-17-2023 08:01-0400 Respiratory rate 16 /min Martha Older CONCRETE ROD BUSTER.OPERATOR [employer]INISH Work Phone: [facility] 09-17-2023 08:01-0400 SaO2% (BldA) [Mass fraction] 97 % Martha Older CONCRETE ROD BUSTER.OPERATOR [employer]INISH Work Phone: [facility] 09-17-2023 08:01-0400 Systolic blood pressure 130 mm[Hg] Martha Older CONCRETE ROD BUSTER.OPERATOR [employer]INISH Work Phone: [facility] 03-19-2023 08:01-0400 Body weight 50.35 kg Martha Older CONCRETE ROD BUSTER.OPERATOR [employer]INISH Work Phone: [facility] 03-19-2023 08:01-0400 Diastolic blood pressure 76 mm[Hg] Martha Older CONCRETE ROD BUSTER.OPERATOR [employer]INISH Work Phone: [facility] 03-19-2023 08:01-0400 Heart rate 68 /min Martha Older CONCRETE ROD BUSTER.OPERATOR [employer]INISH Work Phone: [facility] 03-19-2023 08:01-0400 Respiratory rate 16 /min Martha Older CONCRETE ROD BUSTER.OPERATOR [employer]INISH Work Phone: [facility] 03-19-2023 08:01-0400 SaO2% (BldA) [Mass fraction] 97 % Martha Older CONCRETE ROD BUSTER.OPERATOR [employer]INISH Work Phone: [facility] 03-19-2023 08:01-0400 Systolic blood pressure 124 mm[Hg] Martha Older CONCRETE ROD BUSTER.OPERATOR P[employer]INISH Work Phone: [facility] 09-16-2022 08:31-0400 Body height 152.4 cm Russ Barone MD Work Phone: [facility] 09-16-2022 08:31-0400 Body temperature 97.3 [degF] Russ Barone MD Work Phone: [facility] 09-16-2022 08:31-0400 Body weight 50.8 kg Russ Barone MD Work Phone: [facility] 09-16-2022 08:31-0400 Diastolic blood pressure 60 mm[Hg] Russ Barone MD Work Phone: [facility] 09-16-2022 08:31-0400 Heart rate 64 /min Russ Barone MD Work Phone: [facility] 09-16-2022 08:31-0400 Respiratory rate 12 /min Russ Barone MD Work Phone: [facility] 09-16-2022 08:31-0400 SaO2% (BldA) [Mass fraction] 97 % Russ Barone MD Work Phone: [facility] 09-16-2022 08:31-0400 Systolic blood pressure 120 mm[Hg] Russ Barone MD Work Phone: [facility] 03-18-2022 08:40-0400 Body weight 49.9 kg Russ Barone MD Work Phone: [facility] 03-18-2022 08:40-0400 Diastolic blood pressure 62 mm[Hg] Russ Barone MD Work Phone: [facility] 03-18-2022 08:40-0400 Heart rate 60 /min Russ Barone MD Work Phone: [facility] 03-18-2022 08:40-0400 Respiratory rate 16 /min Russ Barone MD Work Phone: [facility] 03-18-2022 08:40-0400 Systolic blood pressure 120 mm[Hg] Russ Barone MD Work Phone: [facility] Encounters Encounter Date Encounter Type Care Provider Facility Start: 02-14-2025 End: 02-14-2025 Emergency department patient visit Dr. Russ Barone MD Work Phone: -Emergency Department Work Phone: Start: 02-10-2025 End: 02-10-2025 Emergency department patient visit Dr. Russ Barone MD Work Phone: -Emergency Department Work Phone: Start: 02-09-2025 End: 02-09-2025 ambulatory [facility] Facility:[facility] Start: 12-08-2024 End: 12-09-2024 Refill Russ Barone MD Work Phone: [facility] [place] Comment on above: Refill Request Start: 10-18-2024 End: 10-20-2024 Refill Martha Older CONCRETE ROD BUSTER.OPERATOR [employer]INISH Work Phone: [facility] [place] Comment on above: Refill Request Start: 09-24-2024 End: 09-24-2024 Refill Martha Older CONCRETE ROD BUSTER.OPERATOR [employer]INISH Work Phone: [facility] [place] Comment on above: Refill Request Start: 09-23-2024 End: 09-23-2024 Refill Martha Older CONCRETE ROD BUSTER.OPERATOR P[employer]INISH Work Phone: [facility] [place] Comment on above: Refill Request Start: 09-14-2024 End: 09-14-2024 ambulatory RUSS BARONE Facility:[facility] Start: 09-14-2024 End: 09-14-2024 Office outpatient visit 25 minutes Russ Barone MD Work Phone: [facility] [place] Comment on above: Medicare annual well ness visit, subsequent (Primary Dx); Encounter for immunization; Arthritis of carpometacarpal (CMC) joint of right thumb; Medication management; Hypothyroidism, unspecified type; Essential hypertension, benign Start: 09-14-2024 End: 09-14-2024 Patient encounter procedure Russ Barone MD Work Phone: [facility] Start: 09-10-2024 End: 11-10-2024 Follow-up encounter Martha Funk APRN.OPERATOR P[employer]INISH Work Phone: [facility] [place] Start: 09-08-2024 End: 09-08-2024 [facility] Facility:[facility] Start: 09-08-2024 Patient encounter procedure MARTHA OLDER [facility] Start: 08-28-2024 End: 09-01-2024 Refill Vanessa Andrews CONCRETE ROD BUSTER.OPERATOR [employer]INISH Work Phone: [facility] Comment on above: Refill Request Start: 05-05-2024 End: 05-05-2024 Patient encounter procedure [facility] [place] Work Phone: [facility] [place] Start: 05-05-2024 End: 05-05-2024 ambulatory Immunization [facility] Nurse [place] Work Phone: Family [facility] [place] Start: 04-28-2024 [facility] Facility:[facility] Start: 04-28-2024 End: 04-29-2024 Telephone encounter Russ Barone MD Work Phone: [facility] [place] Comment on above: Orders; Immunization s (Flu vaccination) Start: 04-07-2024 End: 04-07-2024 ambulatory Martha Funk CONCRETE ROD BUSTER.OPERATOR [employer]INISH Work Phone: [facility] [place] Comment on above: Flu shot Start: 03-19-2024 End: 03-22-2024 Telephone encounter Martha Funk CONCRETE ROD BUSTER.OPERATOR [employer]INISH Work Phone: [facility] [place] Comment on above: Results Start: 03-18-2024 End: 03-18-2024 ambulatory [facility] Facility:[facility] Start: 03-18-2024 End: 03-18-2024 Patient encounter procedure Martha Funk CONCRETE ROD BUSTER.OPERATOR [employer]INISH Work Phone: [facility] [place] Comment on above: Essential hypertensi on, benign (Primary Dx); Hypothyroidism, unspecified type; Herpes zoster without complication; Annual physical exam Start: 03-06-2024 End: 03-06-2024 Telephone encounter Stephanie García CONCRETE ROD BUSTER.OPERATOR [employer]INISH Work Phone: [facility] Comment on above: Results Start: 03-05-2024 End: 03-05-2024 [facility] Start: 03-05-2024 End: 03-05-2024 Patient encounter procedure Stephanie García CONCRETE ROD BUSTER.OPERATOR [employer]INISH Work Phone: [facility] Comment on above: Oral lesion (Primary Dx); Left ear pain Start: 03-03-2024 End: 03-03-2024 Refill Manasa Nikolai CONCRETE ROD BUSTER.OPERATOR P[employer]INISH Work Phone: [facility] Comment on above: Refill Request Hives (Primary Dx) Start: 09-17-2023 End: 09-17-2023 Patient encounter procedure Martha Funk CONCRETE ROD BUSTER.OPERATOR P[employer]INISH Work Phone: [facility] [place] Comment on above: Medicare annual well ness visit, subsequent (Primary Dx); Hypothyroidism, unspecified type; Essential hypertension, benign; Mixed hyperlipidemia; Medication management Start: 09-03-2023 Refill Martha Funk CONCRETE ROD BUSTER .[facility] Work Phone: [facility] Comment on above: Refill Request Start: 03-19-2023 End: 03-19-2023 Patient encounter procedure Martha Funk CONCRETE ROD BUSTER.OPERATOR [employer]INISH Work Phone: [facility] [place] Comment on above: Essential hypertensi on, benign (Primary Dx); Mixed hyperlipidemia; Hypothyroidism, unspecified type; Need for influenza vaccination; Annual physical exam Start: 03-18-2023 Telephone encounter Claudio Cavazos APRN.[facility] Work Phone: [facility] Comment on above: Results Start: 03-05-2023 Get Medical Advice Jarocho Antonio MD Work Phone: [facility] Comment on above: refill Losartan Start: 09-16-2022 End: 09-16-2022 Patient encounter procedure Russ Barone MD Work Phone: [facility] [place] Comment on above: Elevated MCV (Primar y Dx); Hypothyroidism, unspecified type; Essential hypertension, benign; Mixed hyperlipidemia Start: 09-14-2022 Telephone encounter Russ rodriguez MD Work Phone: [facility] [place] Comment on above: Results Start: 03-18-2022 End: 03-18-2022 Patient encounter procedure Russ Barone MD Work Phone: [facility] [place] Comment on above: Essential hypertensi on, benign (Primary Dx); Need for influenza vaccination; Mixed hyperlipidemia; Hypothyroidism, unspecified type; Elevated blood sugar Start: 03-05-2022 ambulatory Russ Santiago Work Phone: [facility] [place] Start: 10-04-2021 Refill Cedric MCPHERSONOPERATOR PREFINISH Work Phone: [facility] [place] Comment on [...] YR, QUADRIVALENT (AFLURIA, FLULAVAL, FLUZONE) Martha Funk APRNDaryaOPERATOR PREFINISH Work Phone: Start: 03-18-2022 INFLUENZA VACCINE QUADRIVALENT 6 MO - 64 YRS IM Russ Barone MD Work Phone: Plan of Treatment Date Care Activity Detail Author Start: 09-09-2027 Diabetes Screening Diabetes Screenin [facility] Start: 03-18-2027 Diabetes Screening Diabetes Screenin [facility] Start: 09-09-2026 Diabetes Screening Diabetes Screenin [facility] Start: 09-11-2025 DIABETES SCREEN DIABETES SCREEN [facility] Start: 09-11-2025 Diabetes Screening Diabetes Screenin g [facility] Start: 03-21-2025 End: 03-21-2025 Patient encounter procedure 03/21/2025 9:00 AM EDT Office Visit [facility] [place] [address] [place] [address] Russ Barone MD [address] [place] [address] 6 month follow up [facility] [place] Comment on above: 6 month follow up Start: 03-18-2025 Covid-19 Vaccine () Covid-19 Vaccine () [facility] Comment on above: Postponed from 03/07 (Declined at this time) Start: 03-18-2025 Covid-19 Vaccine () Covid-19 Vaccine () [facility] Comment on above: Postponed from 03/07 (Declined at this time) Start: 02-14-2025 [facility] Start: 02-10-2025 [facility] Start: 01-03-2025 Influenza vaccination Influenza Vacc ine (#1) [facility] Comment on above: Postponed from 03/07 (Declined at this time) Start: 09-16-2024 RSV Vaccine (1 - 1-d ose 60+ series) RSV Vaccine (1 - 1-dose 60+ series) [facility] Comment on above: Postponed from 08/12 (Declined at this time) Start: 09-16-2024 RSV Vaccine (1 - 1-d ose 75+ series) RSV Vaccine (1 - 1-dose 75+ series) [facility] Comment on above: Postponed from 08/12 (Declined at this time) Start: 09-14-2024 End: 09-14-2024 Patient encounter procedure 09/14/2024 8:00 AM EDT Office Visit [facility] [place] [address] [place] [address] Russ Barone MD [address] [place] [address] Medicare Wellness [facility] [place] Comment on above: Medicare Wellness Start: 09-10-2024 DIABETES SCREEN DIABETES SCREEN [facility] Start: 09-08-2024 End: 09-08-2024 ambulatory 09/08/2024 8:45 AM EST Results Only [place] [facility] Draw Station [address] [place] [address] [place] [facility] Start: 09-06-2024 End: 12-06-2024 CBC panel - Blood by Automated count COMPLETE BLOOD COUNT Lab Routine Annual physical exam Expected: 09/06/2024 (Approximate), Expires: 12/06/2024 [facility] Comment on above: Expected: 09/06/2024 (Approximate), Expires: 12/06/2024 Start: 09-06-2024 End: 12-06-2024 Comprehensive metabolic 2000 panel - Serum or Plasma COMPREHENSIVE METABOLIC PANEL Lab Routine Annual physical exam Expected: 09/06/2024 (Approximate), Expires: 12/06/2024 [facility] Comment on above: Expected: 09/06/2024 (Approximate), Expires: 12/06/2024 Start: 09-06-2024 End: 12-06-2024 Lipid 1996 panel - Serum or Plasma LIPID PANEL BASIC Lab Routine Annual physical exam Expected: 09/06/2024 (Approximate), Expires: 12/06/2024 [facility] Comment on above: Expected: 09/06/2024 (Approximate), Expires: 12/06/2024 Start: 09-06-2024 End: 12-06-2024 Thyrotropin [Units/volume] in Serum or Plasma THYROID STIMULATING HORMONE Lab Routine Hypothyroidism, unspecified type Expected: 09/06/2024 (Approximate), Expires: 12/06/2024 [facility] Comment on above: Expected: 09/06/2024 (Approximate), Expires: 12/06/2024 Start: 05-05-2024 End: 05-05-2024 Patient encounter procedure 05/05/2024 3:20 PM EDT Immunization [facility] [place] [address] [place] [address] [place], Immunization Clinic Nurse [address] [place] [address] Flu vaccine (regular dose) [facility] [place] Comment on above: Flu vaccine (regular dose) Start: 03-19-2024 Covid-19 Vaccine () Covid-19 Vaccine () [facility] Comment on above: Postponed from 03/07 (Declined at this time) Start: 03-19-2024 Covid-19 Vaccine (6 - Moderna series) Covid-19 Vaccine (6 - Moderna series) [facility] Comment on above: Postponed from 08/26 (Declined at this time) Start: 03-19-2024 Shingrix Vaccine (2 of 3) Núñez grix Vaccine (2 of 3) [facility] Comment on above: Postponed from 06/13 (Declined at this time) Start: 03-19-2024 Urine microalbumin profile DTa P,Tdap,Td Vaccine (1 - Tdap) [facility] Comment on above: Postponed from 04/09 (Declined at this time) Start: 03-18-2024 End: 06-17-2024 Basic metabolic 2000 panel - Serum or Plasma [facility] Comment on above: Expected: 03/18/2024 , Expires: 06/17/2024 Start: 03-18-2024 End: 06-17-2024 Thyrotropin [Units/volume] in Serum or Plasma [facility] Work Phone: Comment on above: Expected: 03/18/2024 , Expires: 06/17/2024 Start: 03-18-2024 End: 06-17-2024 Thyroxine (T4) free [Mass/volume] in Serum or Plasma [facility] Comment on above: Expected: 03/18/2024 , Expires: 06/17/2024 Start: 03-18-2024 End: 06-17-2024 Triiodothyronine (T3) Free [Mass/volume] in Serum or Plasma [facility] Comment on above: Expected: 03/18/2024 , Expires: 06/17/2024 Start: 03-18-2024 End: 03-18-2024 Patient encounter procedure 03/18/2024 8:00 AM EDT Office Visit [facility] [place] [address] [facility] [place] [address] Martha Funk APRN.OPERATOR P[employer]INISH [address] [place] [address] 6 month follow up [facility] [place] Comment on above: 6 month follow up Start: 03-07-2024 Influenza vaccination Influenza Vacc ine (#1) [facility] Start: 03-05-2024 End: 06-04-2024 Herpes simplex virus+Varicella zoster virus DNA [Presence] in Unspecified specimen by PRABHJOT with probe detection HSV1,2/VZV NAAT LESION Lab Routine Oral lesion Expected: 03/05/2024, Expires: 06/04/2024 [facility] Work Phone: Comment on above: Expected: 03/05/2024 , Expires: 06/04/2024 Start: 10-18-2023 End: 01-17-2024 Thyrotropin [Units/volume] in Serum or Plasma TSH BLD Lab Routine Hypothyroidism, unspecified type Medication management Expected: 10/18/2023 (Approximate), Expires: 01/17/2024 [facility] Work Phone: Comment on above: Expected: 10/18/2023 (Approximate), Expires: 01/17/2024 Start: 10-18-2023 End: 01-17-2024 Thyroxine (T4) free [Mass/volume] in Serum or Plasma T4 FREE/FREE THYROX Lab Routine Hypothyroidism, unspecified type Medication management Expected: 10/18/2023 (Approximate), Expires: 01/17/2024 [facility] Work Phone: Comment on above: Expected: 10/18/2023 (Approximate), Expires: 01/17/2024 Start: 09-09-2023 End: 11-09-2023 CBC panel - Blood by Automated count CBC Lab Routine Annual physical exam Essential hypertension, benign Expected: 09/09/2023 (Approximate), Expires: 11/09/2023 [facility] Work Phone: Comment on above: Expected: 09/09/2023 (Approximate), Expires: 11/09/2023 Start: 09-09-2023 End: 11-09-2023 Comprehensive metabolic 2000 panel - Serum or Plasma COMP METABOLIC PANEL Lab Routine Annual physical exam Essential hypertension, benign Mixed hyperlipidemia Expected: 09/09/2023 (Approximate), Expires: 11/09/2023 [facility] Work Phone: Comment on above: Expected: 09/09/2023 (Approximate), Expires: 11/09/2023 Start: 09-09-2023 End: 11-09-2023 Lipid 1996 panel - Serum or Plasma LIPID PANEL BASIC Lab Routine Annual physical exam Mixed hyperlipidemia Expected: 09/09/2023 (Approximate), Expires: 11/09/2023 [facility] Work Phone: Comment on above: Expected: 09/09/2023 (Approximate), Expires: 11/09/2023 Start: 09-09-2023 End: 11-09-2023 Thyrotropin [Units/volume] in Serum or Plasma TSH BLD Lab Routine Annual physical exam Hypothyroidism, unspecified type Expected: 09/09/2023 (Approximate), Expires: 11/09/2023 [facility] Work Phone: Comment on above: Expected: 09/09/2023 (Approximate), Expires: 11/09/2023 Start: 03-07-2023 Influenza vaccination INFLUENZA (#1) [facility] Start: 09-16-2022 End: 11-16-2022 Cobalamin (Vitamin B12) [Mass/volume] in Serum or Plasma VITAMIN B12 BLOOD Lab Routine Elevated MCV Expected: 09/16/2022, Expires: 11/16/2022 [facility] Work Phone: Comment on above: Expected: 09/16/2022 , Expires: 11/16/2022 Start: 09-16-2022 End: 11-16-2022 Thyrotropin [Units/volume] in Serum or Plasma TSH BLD Lab Routine Hypothyroidism, unspecified type Expected: 09/16/2022, Expires: 11/16/2022 [facility] Work Phone: Comment on above: Expected: 09/16/2022 , Expires: 11/16/2022 Start: 09-15-2022 End: 11-15-2022 CBC W Auto Differential panel - Blood CBC + DIFF Lab Routine Essential hypertension, benign Expected: 09/15/2022, Expires: 11/15/2022 [facility] Work Phone: Comment on above: Expected: 09/15/2022 , Expires: 11/15/2022 Start: 09-15-2022 End: 11-15-2022 Comprehensive metabolic 2000 panel - Serum or Plasma COMP METABOLIC PANEL Lab Routine Essential hypertension, benign Expected: 09/15/2022, Expires: 11/15/2022 [facility] Work Phone: Comment on above: Expected: 09/15/2022 , Expires: 11/15/2022 Start: 09-15-2022 End: 11-15-2022 Lipid 1996 panel - Serum or Plasma LIPID PANEL BASIC Lab Routine Essential hypertension, benign Expected: 09/15/2022, Expires: 11/15/2022 [facility] Work Phone: Comment on above: Expected: 09/15/2022 , Expires: 11/15/2022 Start: 08-26-2022 COVID-19 VACCINE (6 - Moderna series) COVID-19 VACCINE (6 - Moderna series) [facility] Start: 03-07-2022 Influenza vaccination INFLUENZA (#1) [facility] Start: 03-05-2022 End: 05-05-2022 SCHEDULE LAB TESTING SCHEDULE LAB TESTING Lab Routine Expected: 03/05/2022, Expires: 05/05/2022 [facility] Work Phone: Comment on above: Expected: 03/05/2022 , Expires: 05/05/2022 Start: 03-05-2022 End: 05-05-2022 Thyrotropin [Units/volume] in Serum or Plasma TSH BLD Lab Routine Hypothyroidism Expected: 03/05/2022, Expires: 05/05/2022 [facility] Work Phone: Comment on above: Expected: 03/05/2022 , Expires: 05/05/2022 Start: 09-03-2021 COVID-19 VACCINE (4 - Booster for Moderna series) COVID-19 VACCINE (4 - Booster for Moderna series) [facility] Start: 2013 RSV Vaccine (1 - 1-d ose 75+ series) RSV Vaccine (1 - 1-dose 75+ series) [facility] Start: 06-13-2011 SHINGRIX VACCINE (2 of 3) NÚÑEZ GRIX VACCINE (2 of 3) [facility] Start: 04-09-2006 Urine microalbumin profile [facility] Start: 1998 RSV Vaccine (1 - 1-d ose 60+ series) RSV Vaccine (1 - 1-dose 60+ series) [facility] Start: 1956 Anxiety Screening Anxiety Screening [facility] Iiv3 vaccine split v irus 0.5 ml dosage im use INFLUENZA VACCINE, AGE 6MO-64YR, TRIVALENT (AFLURIA, FLULAVAL, FLUVIRIN, FLUZONE) Immunization/Injection Routine Need for influenza vaccination Ordered: 04/28/2024 [facility] Work Phone: Comment on above: Ordered: 04/28/2024 Microscopic urinalysis [facility] Organism count, microscopic method [facility] Patient Education [facility] Work Phone: Urine microscopy: epithelial cells [facility] Urine microscopy: re d cells [facility] White blood cell count [facility] Immunizations Immunization Date Immunization Notes Care Provider Grady hathaway 05-05-2024 influenza, seasonal, injectable Immunization [place] Work Phone: [facility] 03-19-2023 influenza, injectabl e, quadrivalent, contains preservative Martha Funk APRN.[employer] Work Phone: [facility] 03-19-2023 influenza virus vaccine, unspecified formulation Manasa Menchaca APRN.[employer] Work Phone: [facility] 03-18-2022 influenza, injectabl e, quadrivalent, contains preservative Russ Barone MD Work Phone: [facility] Work Phone: 03-29-2021 influenza, high dose seasonal, preservative-free Cedric Stout APRN.[employer] Work Phone: [facility] 08-24-2020 COVID-19 vaccine, fu ll dose (MODERNA) Cedric Stout APRN.[employer] Work Phone: [facility] 07-27-2020 COVID-19 vaccine, fu ll dose (MODERNA) Cedric Stout APRN.[facility] Work Phone: [facility] 03-14-2020 influenza, high dose seasonal, preservative-free Cedric Stout APRN.[employer] Work Phone: [facility] Work Phone: 04-11-2018 influenza, injectabl e, quadrivalent, contains preservative Cedric Stout APRN.[employer] Work Phone: [facility] 03-24-2017 influenza, high dose seasonal, preservative-free Cedric Stout APRN.[facility] Work Phone: [facility] 05-06-2016 pneumococcal conjuga te vaccine, 13 valent Cedric Stout APRN.[facility] Work Phone: [facility] Work Phone: 03-22-2016 influenza, high dose seasonal, preservative-free Cedric Stout APRN.[employer] Work Phone: [facility] 05-09-2015 influenza, high dose seasonal, preservative-free Cedric Stout APRN.[facility] Work Phone: [facility] Work Phone: 05-16-2012 influenza virus vaccine, unspecified formulation Cedric Stout APRN.[facility] Work Phone: [facility] Work Phone: 04-18-2011 zoster vaccine, live Cedric rojo APRN.[employer] Work Phone: [facility] 05-05-2007 influenza virus vaccine, unspecified formulation Cedric Stout APRN.[facility] Work Phone: [facility] Work Phone: 04-08-2006 tetanus and diphther ia toxoids, adsorbed, preservative free, for adult use (2 Lf of tetanus toxoid and 2 Lf of diphtheria toxoid) Cedric Stout APRN.[employer] Work Phone: [facility] Work Phone: 05-16-2005 influenza virus vaccine, unspecified formulation Cedric Stout APRN.[facility] Work Phone: [facility] Work Phone: 11-13-2003 pneumococcal polysaccharide vaccine, 23 valent Cedric Stout APRN.[facility] Work Phone: [facility] Work Phone: 04-03-1998 pneumococcal polysaccharide vaccine, 23 valent Cedric Stout APRN.[facility] Work Phone: [facility] Work Phone: 10-19-1996 tetanus and diphther ia toxoids, adsorbed, preservative free, for adult use (2 Lf of tetanus toxoid and 2 Lf of diphtheria toxoid) Cedric Stout APRN.[facility] Work Phone: [facility] Work Phone: 09-15-1972 tetanus and diphther ia toxoids, adsorbed, preservative free, for adult use (2 Lf of tetanus toxoid and 2 Lf of diphtheria toxoid) Cedric Stout APRN.[facility] Work Phone: [facility] Work Phone: Payers Date Payer Category Payer Self-pay 2014 Medicare (Managed Care) PRIMETIM E [id number] 2014 Unknown PRIMETIME PRIMET [employer] HMO POS [id number] 2014-Present [phone] [address] [place] [address] [facility] [id number] 2014 Unknown [id number] 2014 Unknown [id number] Medicare Unknown [id number] Unknown [id number] Social History Date Type Detail Facility Start: 04-18-2011 End: 02-14-2025 Tobacco smoking status NHIS Never smoked tobacco [facility] Start: 09-12-2021 End: 03-05-2024 Alcohol intake Current non-drinker of alcohol (finding) [facility] Start: 09-05-2021 End: 09-09-2022 History SDOH Alcohol Frequency 1 [facility] Start: 09-05-2021 End: 09-09-2022 History SDOH Alcohol Std Drinks 98 [facility] Start: 09-05-2021 End: 09-09-2022 History SDOH Social Connections Phone 4 [facility] Start: 09-05-2021 End: 09-09-2022 History SDOH Social Connections Membership 2 [facility] Start: 09-05-2021 End: 09-09-2022 History SDOH Social Connections Living 5 [facility] Start: 09-05-2021 End: 09-09-2022 History SDOH Physical Activity MPS 3 [facility] Start: 11-25-2019 Education 12 [facility] Start: 1940 Sex Assigned At Female C [facility] Start: 08-13-2021 End: 03-18-2022 Exposure to SARS-CoV-2 (event) Not sure [facility] Start: 04-18-2011 Tobacco use and exposure Smoke less tobacco non-user [facility] Start: 09-09-2022 History SDOH Alcohol Std Drinks 0 [facility] Start: 09-09-2022 End: 09-10-2023 History of Social function [facility] Start: 09-09-2022 End: 09-10-2023 Social connection and isolation panel [facility] How often do you att end taoist or religion services? Patient refused [facility] Do you belong to any clubs or organizations such as taoist groups, unions, fraternal or athletic groups, or school groups? Yes [facility] Are you now , , , , never or living with a partner? [facility] How often to you hav e a drink containing alcohol? Never [facility] Do you feel stress - tense, restless, nervous, or anxious, or unable to sleep at night because your mind is troubled all the time - these days [OSQ] Not at all [facility] (I/We) worried wheth er (my/our) food would run out before (I/we) got money to buy more. Never true [facility] In the past 12 month s, was there a time when you were not able to pay the mortgage or rent on time? No [facility] Start: 03-02-2020 Gender identity Identifies as female gender (rizwana) [facility] Start: 03-02-2020 Sexual orientation Heterosexual (fanny hernandez) [facility] Functional Status Date Assessment Result Facility 11-01-2014 Are you deaf, or do you have serious difficulty hearing No 11/01/2014 3:20 PM Alaina Adkins LPN No [facility] 11-01-2014 Are you blind, or do you have serious difficulty seeing, even when wearing glasses No 11/01/2014 3:20 PM Alaina Adkins LPN No [facility] 11-01-2014 Do you have serious difficulty walking or climbing stairs Yes 11/01/2014 3:20 PM Alaina Adkins LPN Yes [facility] 11-01-2014 Do you have difficul ty dressing or bathing No 11/01/2014 3:20 PM Alaina Adkins LPN No [facility] 11-01-2014 Because of a physica l, mental, or emotional condition, do you have difficulty doing errands alone such as visiting a physician's office or shopping No 11/01/2014 3:20 PM Alaina Adkins LPN No [facility] Mental Status Date Assessment Result Facility 02-14-2025 Cognitive function Level Of Cons ciousness Awake;Alert;Appropriate;Fol lows Commands [facility] Work Phone: 11-01-2014 Because of a physica l, mental, or emotional condition, do you have serious difficulty concentrating, remembering, or making decisions No 11/01/2014 3:20 PM EDT Jovana Alaina Winchester, CURRICULUM DEVELOPMENT SPECIALIST No [facility] Clinical Notes 10-04-2021 to 02-14-2025 Note Date & Type Note Facility 02-14-2025 Discharge summary [facility] 02-14-2025 Discharge summary Note Date/Time February 14, 2025 3:03pm [facility] Medical Records Department [address] [place] [address] Emergency Department Summary 02/14/25 MR#: [id number] Acct: [id number] Name: PATY RIOS Rep #:[id number] : 1940 84 From: Suhail Delacruz MD [...] (Updated 02/14/25 @ 14:[address] Suhail Delacruz MD) household members: none Smoking Status: Never [...] 86.0 H Lymph % (Auto) 5.3 L Roberts % (Auto) 7.3 Eos % (Auto) 0.1 [...] Care Provider] - 3-5 Days Print Language: Gambian Disposition Disposition: Home, Self Care What to do if you have Problems For any increased pain, shortness of breath, bleeding, nausea or vomiting, chestpain, or any unexpected problems, contact your Primary Care Provider. Call [facility] ([phone]) or report to the closest Emergency Room. Call 911 if necessary. 02/14/25 1503 <Electronically signed by Suhail Delacruz MD> Cosigner Signature (if applicable): CC: Dr. Russ Barone MD ~ Signed [facility] Work Phone: [phone] Radiology Diagnostic study note [facility] Imaging Services [address] [place] [address] Abdomen/Pelvis W IV Cont ONLY MR#: [id number] Acct: [id number] Name: PATY RIOS Rep #: [id number] : 1940 F 84 From: Per Rubio MD PCP: Dr. Russ Barone MD Status: REG E R Study:Abdomen/Pelvis W IV Cont ONLY Date of E xam: 02/10/25 Exam# [id number] Ordering Dr: Elvira Moore PROCEDURE: ABDOMEN/PELVIS W [...] of the ampulla is possible. Reading Location: [id number] CC: Dr. Russ Barone MD; ARIANA Leiva ~ Cylinder Honer: Signed [facility]08-06-2025 NoteHNO ID: [id number] Author: MARTHA FUNK APRN.OPERATOR [employer]ISH Service: ? Author Type: Nurse Practitioner Type: [...] Completed Advance Directive Discussio (more content not included)...[facility]06-04-2025 Telephone encounter Note* Telephone Encounter - Manisha [...] Please advise. Thank you. Manisha Appiah LPN. [facility]06-04-2025 Miscellaneous Notes* Telephone Encounter - Manisha Appiah [...] you. Manisha Appiah LPN. documented [facility] Telephone encounter Note * Telephone Encounter - [...] Please advise. Thank you. Manisha Appiah LPN. [facility]04-14-2025 Miscellaneous Notes* Telephone Encounter - Manisha Appiah [...] you. Manisha Appiah LPN. [facility] Telephone encounter Note * Telephone Encounter - [...] Castanon LPN September 24, 2024 9:33 AM [facility]03-21-2025 Miscellaneous Notes* Telephone Encounter - Naida Castanon [...] 24, 2024 9:33 AM documented [facility] Telephone encounter Note * Telephone Encounter - [...] OSWALDO Call September 23, 2024 9:08 AM [facility]03-20-2025 Miscellaneous Notes* Telephone Encounter - Veena Rico [...] 23, 2024 9:08 AM documented [facility]2025 NoteHNO ID: [id number] Author: RUSS BARONE MD Service: ? Author Type: Physician Type: Progress Notes Filed: 09/14/2024 08:47 Note Text: Paty Riso is a 84 year old female here [...] 10 mg tablet Cet (more content not included)...[facility]03-11-2025 History of Present illness Narrative* Russ Barone [...] any unintended typographical errors. documented [facility] [place] Telephone encounter Note * Telephone Encounter - [...] Please advise. Thank you. Manisha Appiah LPN. [facility]02-24-2025 Miscellaneous Notes* Telephone Encounter - Manisha Appiah [...] you. Manisha Appiah LPN. documented [facility] [place] Telephone encounter Note * Telephone Encounter - Karrie Russo LPN - 04/28/2024 2:19 PM EDT Patient requesting to have regular dose flu vaccine and not high dose. States that she broke out inhives and was severely nauseated the last time she received the high dose. Please review and advise. Karrie Russo LPN [facility]10-23-2024 Miscellaneous Notes* Telephone Encounter - Karrie Russo LPN - 04/28/2024 2:19 PM EDT Patient requesting to have regular dose flu vaccine and not high dose. States that she broke out inhives and was severely nauseated the last time she received the high dose. Please review and advise. Karrie Russo LPN documented [facility] encounter[facility] [place] Telephone encounter Note * Telephone Encounter - Martha Funk APRN.CNP - 03/22/2024 7:19 AM EDT Then no concerns on blood work. Thank you Martha Funk APRN.CNP [facility]09-16-2024 Miscellaneous Notes* Telephone Encounter - Martha Funk APRN.CNP - 03/22/2024 7:19 AM EDT Then no concerns on blood work. Thank you Martha Funk APRN.CNP * Telephone Encounter - Muriel Child LPN - 03/19/2024 3:07 PM EDT Patient returned call and went over results, notes from Martha Older REVISING CLERK with understanding. Patient said she was not [...] you Martha Funk APRN.CNP documented in this encounter[facility] [place] Telephone encounter Note * Telephone Encounter - Muriel Child LPN - 03/19/2024 3:07 PM EDT Patient returned call and went over results, notes from Martha Funk REVISING CLERK with understanding. Patient said she was not fasting for the lab work. [facility]09-13-2024 Telephone encounter Note* Telephone Encounter - Lyndsay Dunn LPN - 03/19/2024 10:10 AM EDT Called and left message for patient to call office back for results Lyndsay Dunn LPN March 19, 2024 10:12 AM [facility]09-13-2024 Telephone encounter Note* Telephone Encounter - Martha Funk APRN.CNP - 03/19/2024 9:39 AM EDT Blood work all in acceptable ranges. Blood sugar slightly elevated but is normal if this was not a fasting sample. If it was a fasting sample, I recommend we do a HgbA1c to further evaluate this. Thank you Martha Funk APRN.CNP [facility]09-12-2024 Instructions* Patient Instructions* Martha Funk APRN.CNP - 03/18/2024 8:22 AM EDT Over the counter cream/gel with lidocaine and/or vit E gel. documented in this encounterSelect [facility] [place]2024 NoteHNO ID: [id number] Author: MARTHA FUNK APRN.CNP Service: ? Author [...] asymptomatic - Instructed patient (more content not included)...[facility] 03-18-2024 History of Present illness Narrative* Martha Funk APRN.[employer]ATOR [employer]IN[employer] - 03/18/2024 8:10 AM EDT CC: Patient [...] plan. Martha Funk APRN.CNP documented in this encounter[facility] [place] Telephone encounter Note * Telephone Encounter - Stephanie García APRN.CNP - 03/06/2024 12:56 PM EDT Called with patient informed that culture revealed shingles. GFR 72, started on Valtrex. Recommend to call ENT on Friday for evaluation. Tylenol/ibuprofen as needed for pain. Stephanie García APRN.CNP [facility]08-31-2024 Miscellaneous Notes* Telephone Encounter - Stephanie García APRN.CNP - 03/06/2024 12:56 PM EDT Called with patient informed that culture revealed shingles. GFR 72, started on Valtrex. Recommend to call ENT on Friday for evaluation. Tylenol/ibuprofen as needed for pain. Stephanie García APRN.CNP documented in this encounterSelect [facility] [place] Instructions* Patient Instructions* Stephanie García APRN.CNP - 03/05/2024 8:07 AM EDT Will send culture for cold sore, and notify of results Ofloxacin drops to right ear Pepcid 20 mg twice a day for 10 days Zyrtec 10 mg By mouth daily at bedtime documented in this encounterSelect [facility] [place]2024 NoteHNO ID: [id number] Author: STEPHANIE GARCÍA APRN.CNP Service: ? Author Type: Nurse Practitioner Type: Progress Notes Filed: 03/05/2024 08:46 Note Text: Subjective The history is provided by the patient. No language and literature division chair was used. PAT Rios is a 83 [...] have confirmed and edited as necessary, the [facility] Review of Systems Constitutional: Negative [...] detail warranting prompt ER evaluation. Stephanie García APRN.[facility]08-30-2024 History of Present illness Narrative* Stephanie García APRN.[facility] - 03/05/2024 8:04 AM EDT Images from the original note were not included. Subjective The history is provided by the patient. No language and literature division chair was used. PAT Rios is a 83 [...] have confirmed and edited as necessary, the [facility] Review of Systems Constitutional: Negative [...] evaluation. Stephanie García APRN.[facility] documented in this encounterSelect [facility] [place]2024 NoteHNO ID: [id number] Author: CLAUDIO CAVAZOS APRN.[facility] Service: ? Author [...] history is provided by the patient. No language and literature division chair was used. Rash Review of Systems Constitutional: [...] times when brands were switched. Claudio Cavazos APRN.[facility]08-28-2024 History of Present illness Narrative* Claudio Cavazos APRN.[facility] - 03/03/2024 2:31 PM EDT Images from [...] history is provided by the patient. No language and literature division chair was used. Rash Review of Systems Constitutional: [...] switched. Claudio Cavazos APRN.[facility] documented in this encounter[facility] [place] Telephone encounter Note * Telephone Encounter - [...] Please advise. Thank you. Manisha Appiah LPN. [facility]08-28-2024 Miscellaneous Notes* Telephone Encounter - Manisha Appiah [...] you. Manisha Appiah LPN. documented in this encounter[facility] [place] History of Present illness Narrative* Martha Funk [...] plan. Martha Funk APRN.CNP documented in this encounterSelect [facility] [place]20[facility] Instructions* Patient Instructions* Martha Funk APRN.CNP - [...] review all the medicines you take, even [id number] medicines. As you get older, the way [...] have certain medical conditions. documented in this encounter[facility] [place]24 Miscellaneous Notes* Telephone Encounter - Manisha Appiah [...] you. Manisha Appiah LPN. documented in this encounterSelect [facility] [place]-2023 History of Present illness Narrative* Older, MarthaPUMA chavez.OPERATOR PREFINISH - 03/19/2023 8:04 AM EDT CC: Patient [...] plan. Martha Funk APRN.CNP [facility] [place] Miscellaneous Notes* Telephone Encounter - Lizbet Pham MA - 03/19/2023 7:41 AM EDT Patient notified of results, verbalized understanding and has f/u appt with Martha Older this AM. Lizbet Pham MA * Telephone Encounter - Claudio Cavazos APRN.CNP - 03/18/2023 7:43 PM EDT Tsh is normal please have patient follow up with PCP. Thank you! documented [facility] encounter[facility] [place] History of Present illness Narrative* Russ Barone [...] medication. Russ Barone MD documented in [facility] encounter[facility] [place]23 Miscellaneous Notes* Telephone Encounter - Manisha Appiah [...] Regards, Russ Barone MD documented in [facility] encounter[facility] [place] History of Present illness Narrative* Russ Barone [...] hypothyroidism Russ Barone MD documented [facility] encounter[facility] [place] Miscellaneous Notes* Telephone Encounter - Manisha Appiah [...] you. Manisha Appiah LPN documented in this encounter[facility] [place] Miscellaneous Notes* Telephone Encounter - Manisha Appiah [...] you. Manisha Appiah LPN documented in [facility] encounter[facility] [place] Miscellaneous Notes* Telephone Encounter - Claire Sheriff [...] review. Claire Sheriff MA [facility] Diagnosis Essential hypertension, benign documented in this encounter [facility]* Diagnosis Elevated blood sugar Other abnormal glucose documented in this encounter [facility] note* Diagnosis Hypothyroidism, unspecified type documented in this encounter [facility] note* Diagnosis Hypothyroidism Unspecified hypothyroidism [facility] [place] [facility] Diagnosis Essential hypertension, benign- Primary Need for influenza vaccination Need for prophylactic vaccination and inoculation against influenza Mixed hyperlipidemia Hypothyroidism, unspecified type Elevated blood sugar Other abnormal glucose documented in this encounter [facility] note* Diagnosis Elevated MCV- Primary Other abnormality of red blood cells Hypothyroidism, unspecified type Essential hypertension, benign Mixed hyperlipidemia documented in this encounter [facility] note* Diagnosis Elevated blood sugar Other abnormal glucose [facility] [place] [facility] Diagnosis Essential hypertension, benign- Primary Mixed hyperlipidemia Hypothyroidism, unspecified type Need for influenza vaccination Need for prophylactic vaccination and inoculation against influenza Annual physical exam Routine general medical examination at a health care facility [facility]* Diagnosis Elevated blood sugar Other abnormal glucose [facility] [place] [facility]* Diagnosis Medicare annual wellness visit, subsequent- Primary Routine general medical examination at a health care facility Hypothyroidism, unspecified type Essential hypertension, benign Mixed hyperlipidemia Medication management Encounter for long-term (current) use of other medications [facility] [place] [facility]* Diagnosis Establishing care with new doctor, [...] Other abnormal glucose documented in this encounter [facility] note* Diagnosis Establishing care with new doctor, [...] Primary Urticaria, unspecified [facility]* Diagnosis Establishing care with new doctor, [...] pain Otalgia, unspecified documented in this encounter [facility] note* Diagnosis Establishing care with new doctor, [...] health care facility documented in this encounter [facility] note* Diagnosis Establishing care with new doctor, [...] inoculation against influenza documented in this encounter [facility] note* Diagnosis Establishing care with new doctor, [...] Other abnormal glucose documented in this encounter [facility] note* Diagnosis Establishing care with new doctor, [...] Essential hypertension, benign documented in this encounter [facility] note* Diagnosis Establishing care with new doctor, [...] Essential hypertension, benign documented in this encounter [facility] note* Diagnosis Establishing care with new doctor, [...] Hypothyroidism, unspecified type documented in this encounter [facility] note* Diagnosis Establishing care with new doctor, [...] of right thumb documented in this encounter [facility] noteNo assessment information availableWCommunity Regional [facility] Work Phone: Hospital Discharge instructionsAdditional Instructions The CAT scan shows you have inflammation of your lower colon and rectum. This needs treated with an antibiotic since you have a high white blood cell count. Follow-up with your primary care doctor, or if any symptoms worsen like if you develop a fever, vomiting, abdominal pain, or worsening diarrhea please be seen again immediately.[facility] Work Phone: Reason for referral (narrative)No reason for referral information availableWCommunity Regional Medical Center Work Phone: Advance Directives Documents on File Type Date Recorded Patient Buckle Stringer Expl anation Advance Directive(s) 08/07/2011 12:00 AM Advance Directive(s) 08/21/2006 12:00 AM Documents on File Type Date Recorded Patient Buckle Stringer Expl anation Advance Directive(s) 08/07/2011 Advance Directive(s) 08/21/2006 Advance Directive Response Recorded Date/ Time Do you have a Healthcare Power of Photographic Enlarger Operator? Yes February 10, 2025 6:37pm Advance Directive Response Recorded Date/ Time Do you have a Healthcare Power of Photographic Enlarger Operator? Yes February 10, 2025 6:37pm Do you have a Healthcare Power of Photographic Enlarger Operator? Yes February 14, 2025 10:20am Chief Complaint [...] or prosecute any alcohol or drug abuse patient.[facility] [place] the event this information is protected by the Federal Confidentiality of Alcohol and Drug Abuse Patient Records regulations: The Federal rules restrict any use of the information to criminally investigate or prosecute any alcohol or drug abuse patient.[facility] [place] the event this information is protected by the Federal Confidentiality of Alcohol and Drug Abuse Patient Records regulations: The Federal rules restrict any use of the information to criminally investigate or prosecute any alcohol or drug abuse patient.[facility] [place] the event this information is protected by the Federal Confidentiality of Alcohol and Drug Abuse Patient Records regulations: The Federal rules restrict any use of the information to criminally investigate or prosecute any alcohol or drug abuse patient.[facility] [place]In the event this information is protected by the Federal Confidentiality of Alcohol and Drug Abuse Patient Records regulations: The Federal rules restrict any use of the information to criminally investigate or prosecute any alcohol or drug abuse patient.[facility] [place] the event this information is protected by the Federal Confidentiality of Alcohol and Drug Abuse Patient Records regulations: The Federal rules restrict any use of the information to criminally investigate or prosecute any alcohol or drug abuse patient.[facility] [place]In the event this information is protected by the Federal Confidentiality of Alcohol and Drug Abuse Patient Records regulations: The Federal rules restrict any use of the information to criminally investigate or prosecute any alcohol or drug abuse patient.[facility] [place]In the event this information is protected by the Federal Confidentiality of Alcohol and Drug Abuse Patient Records regulations: The Federal rules restrict any use of the information to criminally investigate or prosecute any alcohol or drug abuse patient.[facility] [place]In the event this information is protected by the Federal Confidentiality of Alcohol and Drug Abuse Patient Records regulations: The Federal rules restrict any use of the information to criminally investigate or prosecute any alcohol or drug abuse patient.[facility] [place]In the event this information is protected by the Federal Confidentiality of Alcohol and Drug Abuse Patient Records regulations: The Federal rules restrict any use of the information to criminally investigate or prosecute any alcohol or drug abuse patient.[facility] [place]In the event this information is protected by the Federal Confidentiality of Alcohol and Drug Abuse Patient Records regulations: The Federal rules restrict any use of the information to criminally investigate or prosecute any alcohol or drug abuse patient.[facility] [place]In the event this information is protected by the Federal Confidentiality of Alcohol and Drug Abuse Patient Records regulations: The Federal rules restrict any use of the information to criminally investigate or prosecute any alcohol or drug abuse patient.[facility] [place]In the event this information is protected by the Federal Confidentiality of Alcohol and Drug Abuse Patient Records regulations: The Federal rules restrict any use of the information to criminally investigate or prosecute any alcohol or drug abuse patient.[facility] [place]In the event this information is protected by the Federal Confidentiality of Alcohol and Drug Abuse Patient Records regulations: The Federal rules restrict any use of the information to criminally investigate or prosecute any alcohol or drug abuse patient.[facility] [place]In the event this information is protected by the Federal Confidentiality of Alcohol and Drug Abuse Patient Records regulations: The Federal rules restrict any use of the information to criminally investigate or prosecute any alcohol or drug abuse patient.[facility] OhioIn the event this information is protected by the Federal Confidentiality of Alcohol and Drug Abuse Patient Records regulations: The Federal rules restrict any use of the information to criminally investigate or prosecute any alcohol or drug abuse patient.[facility] [place]In the event this information is protected by the Federal Confidentiality of Alcohol and Drug Abuse Patient Records regulations: The Federal rules restrict any use of the information to criminally investigate or prosecute any alcohol or drug abuse patient.[facility] [place]In the event this information is protected by the Federal Confidentiality of Alcohol and Drug Abuse Patient Records regulations: The Federal rules restrict any use of the information to criminally investigate or prosecute any alcohol or drug abuse patient.[facility] [place]In the event this information is protected by the Federal Confidentiality of Alcohol and Drug Abuse Patient Records regulations: The Federal rules restrict any use of the information to criminally investigate or prosecute any alcohol or drug abuse patient.[facility] [place]In the event this information is protected by the Federal Confidentiality of Alcohol and Drug Abuse Patient Records regulations: The Federal rules restrict any use of the information to criminally investigate or prosecute any alcohol or drug abuse patient.[facility] [place]In the event this information is protected by the Federal Confidentiality of Alcohol and Drug Abuse Patient Records regulations: The Federal rules restrict any use of the information to criminally investigate or prosecute any alcohol or drug abuse patient.[facility] [place]In the event this information is protected by the Federal Confidentiality of Alcohol and Drug Abuse Patient Records regulations: The Federal rules restrict any use of the information to criminally investigate or prosecute any alcohol or drug abuse patient.[facility] [place]In the event this information is protected by the Federal Confidentiality of Alcohol and Drug Abuse Patient Records regulations: The Federal rules restrict any use of the information to criminally investigate or prosecute any alcohol or drug abuse patient.[facility] [place]In the event this information is protected by the Federal Confidentiality of Alcohol and Drug Abuse Patient Records regulations: The Federal rules restrict any use of the information to criminally investigate or prosecute any alcohol or drug abuse patient.[facility] [place]In the event this information is protected by the Federal Confidentiality of Alcohol and Drug Abuse Patient Records regulations: The Federal rules restrict any use of the information to criminally investigate or prosecute any alcohol or drug abuse patient.[facility] [place]In the event this information is protected by the Federal Confidentiality of Alcohol and Drug Abuse Patient Records regulations: The Federal rules restrict any use of the information to criminally investigate or prosecute any alcohol or drug abuse patient.[facility] [place]In the event this information is protected by the Federal Confidentiality of Alcohol and Drug Abuse Patient Records regulations: The Federal rules restrict any use of the information to criminally investigate or prosecute any alcohol or drug abuse patient.[facility] [place]In the event this information is protected by the Federal Confidentiality of Alcohol and Drug Abuse Patient Records regulations: The Federal rules restrict any use of the information to criminally investigate or prosecute any alcohol or drug abuse patient.[facility] [place] Reason for Visit (unrecogniz ed section and [...] Care Teams (unrecognized sec tion and content) Lpn Rn Hospice Relationship Specialty Start Date End Date Russ Barone MD [address] [place] [address] PCP - General Internal Medicine 11/01/14 Lpn Rn Hospice Relationship Specialty Start Date End Date Russ Barone MD [address] [place] [address] PCP - General Internal Medicine 11/01/14 Lpn Rn Hospice Relationship Specialty Start Date End Date Russ Barone MD [address] [place] [address] PCP - General Internal Medicine 11/01/14 Lpn Rn Hospice Relationship Specialty Start Date End Date Russ Barone MD [address] [place] [address] PCP - General Internal Medicine 11/01/14 Lpn Rn Hospice Relationship Specialty Start Date End Date Russ Barone MD [address] [place] [address] PCP - General Internal Medicine 11/01/14 Lpn Rn Hospice Relationship Specialty Start Date End Date Russ Barone MD [address] [place] [address] PCP - General Internal Medicine 11/01/14 Lpn Rn Hospice Relationship Specialty Start Date End Date Russ Barone MD [address] [place] [address] PCP - General Internal Medicine 11/01/14 Lpn Rn Hospice Relationship Specialty Start Date End Date Russ Barone MD [address] [place] [address] PCP - General Internal Medicine 11/01/14 Lpn Rn Hospice Relationship Specialty Start Date End Date Russ Barone MD [address] [place] [address] PCP - General Internal Medicine 11/01/14 Lpn Rn Hospice Relationship Specialty Start Date End Date Russ Barone MD [address] [place] [address] PCP - General Internal Medicine 11/01/14 Lpn Rn Hospice Relationship Specialty Start Date End Date Russ Barone MD [address] [place] [address] PCP - General Internal Medicine 11/01/14 Lpn Rn Hospice Relationship Specialty Start Date End Date Russ Barone MD [address] [place] [address] PCP - General Internal Medicine 11/01/14 Lpn Rn Hospice Relationship Specialty Start Date End Date Russ Barone MD [address] [place] [address] PCP - General Internal Medicine 11/01/14 Lpn Rn Hospice Relationship Specialty Start Date End Date Russ Barone MD [address] [place] [address] PCP - General Internal Medicine 11/01/14 Lpn Rn Hospice Relationship Specialty Start Date End Date Russ Barone MD [address] [place] [address] PCP - General Internal Medicine 11/01/14 Lpn Rn Hospice Relationship Specialty Start Date End Date Russ Barone MD [address] [place] [address] PCP - General Internal Medicine 11/01/14 Lpn Rn Hospice Relationship Specialty Start Date End Date Russ Barone MD [address] [place] [address] PCP - General Internal Medicine 11/01/14 Lpn Rn Hospice Relationship Specialty Start Date End Date Russ Barone MD [address] [place] [address] PCP - General Internal Medicine 11/01/14 Alea Dorantes PA-C [address] [place] [address] Content Producer Family Medicine 06/13/24 Martha Funk APRN.CNP [address] [place] [address] Content Producer Internal Medicine 06/13/24 Pamela Self PA-C [address] [place] [address] Content Producer Family Medicine 06/13/24 Lpn Rn Hospice Relationship Specialty Start Date End Date Russ Barone MD [address] [place] [address] PCP - General Internal Medicine 11/01/14 Alea Dorantes PA-C [address] [place] [address] Content Producer Family Medicine 06/13/24 Martha Funk APRN.OPERATOR PREFINISH [address] [place] [address] Content Producer Internal Medicine 06/13/24 Pamela Self PA-C [address] [place] [address] Content Producer Family Medicine 06/13/24 Lpn Rn Hospice Relationship Specialty Start Date End Date Russ Barone MD [address] [place] [address] PCP - General Internal Medicine 11/01/14 Alea Dorantes PA-C [address] [place] [address] Content Producer Family Medicine 06/13/24 Martha Funk APRN.OPERATOR PREFINISH [address] [place] [address] Content Producer Internal Medicine 06/13/24 Pamela Self PA-C [address] [place] [address] Content Producer Family Medicine 06/13/24 Lpn Rn Hospice Relationship Specialty Start Date End Date Russ Barone MD [address] [facility] [place] [address] PCP - General Internal Medicine 11/01/14 Martha Funk APRN.OPERATOR PREFINISH [address] [place] [address] Content Producer Internal Medicine 06/13/24 Lpn Rn Hospice Relationship Specialty Start Date End Date Russ Barone MD [address] [place], [place] [id number] PCP - General Internal Medicine 11/01/14 Alea Dorantes PA-C [address] [place] [address] [facility] Family [facility] 06/13/24 09/26/24 Older, PUMA Thomas.OPERATOR PREFINISH [address] [place], [place] [id number] [facility] Internal Medicine 06/13/24 Pamela Self PA-C [address] [place], [place] [address] [facility] 06/13/24 09/26/24 Team Status: Active Member [...] section and content) DATE CREATED AUTHOR 02/12/2025 [facility] DATE CREATED AUTHOR AUTHOR'S LEANNEIZ ATION 02/13/2025 [facility] FOR RECORDS PERTAINING TO PATIENTS WHO [...] BE BASED ON THE PRIMARY CLINICAL RECORDS. [employer] provides no warranty or guarantee of the accuracy or completeness of information in this document.
== END 2025-02-14 15:12 | disposition home or self-care (01) ==
PROVIDERS: Emergency Provider Emergency Medicine; PCP Internal Medicine; Visit Provider Emergency Medicine
DX: R79.89 Other specified abnormal findings of blood chemistry (principal); D72.829 Elevated white blood cell count, unspecified; I10 Essential (primary) hypertension; Z79.82 Long term (current) use of aspirin; Z79.899 Other long term (current) drug therapy
CPT/HCPCS: 80048; 85025; 96361; 96374; 99285; A4216; J2405

== ENCOUNTER 2025-03-24 18:49 | Inpatient (IN) | payer MEDICARE, SELFPAY ==
[2025-03-24 18:50] VITALS: BP 98/55; PULSE 64; RESP 16; TEMP 36.8; O2SAT 96
[2025-03-24 19:13] VITALS: BMI 19.1
--- NOTE | 2025-03-24 19:29 | CT_ITS ---
PROCEDURE: CT ABDOMEN/PELVIS WITH CONTRAST 03/24/2025 REASON FOR EXAM: 14 POUND WEIGHT LOSS, DISTENTION, NAUSEA AND VOMIT TECHNIQUE: Procedure Code: [id number] Modality: CT Procedure: ABDOMEN/PELVIS WITH CONTRAST Coronal and Sagittal reconstruction series were provided. One or more dose reduction techniques were used (e.g., Automated exposure control, adjustment of the mA and/or kV according to patient size, use of iterative reconstruction technique. RADIATION DOSE SUMMARY: DLP: 264.35 mGycm COMPARISON: 02/10/2025 FINDINGS: Lung bases: Clear, with mild dependent atelectasis. Liver: No significant abnormality. Gallbladder: Grossly unremarkable. Mild biliary ductal dilatation, similar to prior. Spleen: Normal size and morphology. Pancreas: Unremarkable. No discrete focal lesion or ductal dilatation. Adrenals: Unremarkable. Kidneys: Symmetric enhancement. No urolithiasis or hydronephrosis. Bladder: Underdistended, grossly unremarkable. Reproductive Organs: Grossly unremarkable uterus and adnexae. Bowel: Unremarkable stomach and small bowel. No evidence of obstruction. Normal appendix. Large stool burden throughout the colon compatible with constipation. Prominent circumferential colonic wall thickening along the transverse, descending, and rectosigmoid colon compatible with acute segmental colitis and/or diverticulitis. The appearance is similar involving the sigmoid colon but has progressed proximally to involve the transverse and descending segments since prior exam. Lymph nodes: No suspicious lymph node enlargement. Vasculature: Normal caliber abdominal aorta. Moderate atherosclerotic disease. Peritoneum / Retroperitoneum: Small volume nonspecific ascites. No pneumoperitoneum. Bones: Degenerative changes of the spine with mild lumbar levoscoliosis. CT/Abdomen/Pelvis WITH Contrast IMPRESSION: 1. Nonspecific mild intra and extrahepatic biliary ductal dilatation, similar t o prior. 2. Constipation with segmental colitis involving the distal rectosigmoid colon, which is now progressed proximally to involve the transverse and descending colonic segments. 3. Nonspecific small volume abdominopelvic ascites, likely related to the colit is. Reading Location: [facility]
--- OUTSIDE RECORDS SUMMARY | 2025-03-24 19:43 | XMS RPT_ITS | CCD ---
Author Organization [facility] Care Team Providers Care Medical Charge Entry Specialist Name Role Phone Anh JAVIER, Russ Primary Care Provider Russ Barone MD Primary Care Provider Alea Dorantes PA-C Unavailable [phone] Older TESTING SHAKING SHIPPING.ROUND UP RING HAND, Martha Unavailable Aramis CAGE Pamela Unavailable Jayna CAGE Alea L Unavailable Aramis CAGE Pamela Unavailable Dr. Russ Barone MD Primary Care Provider Dr. Galdino Pittman DO Referring Provider Dr. Galdino Pittman DO Emergency Provider Dr. Suhail Delacruz MD Emergency Provider Galdino Pittman Referring Unavailabl e Galdino Pittman Attending Unavailabl e Ganta, Russ Primary Care Unavailable Suhail Delacruz Attending Unavailable Ganta, Russ Primary Care Unavailable OLDER, MARTHA Referring Unavailable GANTA, RUSS Primary Care Unavailable GANTA, RUSS Attending Unavailable GANTA, RUSS Primary Care Unavailable GANTA, RUSS Referring Unavailable GANTA, RUSS Primary Care Unavailable GANTA, RUSS Referring Unavailable GANTA, RUSS Primary Care Unavailable GANTA, RUSS Primary Care Unavailable GANTA, RUSS Primary Care Unavailable OLDER, MARTHA Referring Unavailable GANTA, RUSS Primary Care Unavailable GANTA, RUSS Attending Unavailable GANTA, RUSS Primary Care Unavailable OLDER, MARTHA Attending Unavailable [facility] Primary Care Unavailable OLDER, MARTHA Referring Unavailable [facility] Primary Care Unavailable [facility] Primary Care Unavailable OLDER, MARTHA Attending Unavailable OLDER, MARTHA Referring Unavailable [facility] Unavailable Allergies Allergy Classification Reported Allergen(s) Allergy Type Date of Onset Reaction(s) Facility (20 sources) Alendronate; Translations: [ALENDRONATE SODIUM] Drug Allergy 7 Intolerance [facility] Work Phone: (20 sources) Amoxicillin / Clavulanate; Translations: [AMOXICILLIN-POT CLAVULANATE] Drug Allergy 8 Rash, Diarrhea, Swelling, Other: See Comments [facility] Work Phone: (20 sources) Grass pollen; Translations: [GRASS POLLEN] Propensity to adverse reactions 5 [facility] Work Phone: (11 sources) leaves [Other] Propensity to adverse reactions 5 [facility] Work Phone: (11 sources) weeds [Other] Propensity to adverse reactions 5 [facility] Work Phone: (19 sources) valACYclovir; Translations: [VALACYCLOVIR] Drug Allergy 4 GI Upset [facility] (2 sources) Amoxicillin Drug Allergy 5 [facility] (1 source) levoFLOXacin Drug Allergy 5 Abd cramps/diarrhe a [facility] (1 source) metroNIDAZOLE Drug Allergy 5 Abd cramps/diarrhe a [facility] (1 source) Amoxicillin Drug Allergy 5 [facility] Rep[facility] (1 source) levoFLOXacin Drug Allergy 5 [facility] (1 source) metroNIDAZOLE Drug Allergy 5 [facility] Repository Medications Current Medications Medication Drug Class(es) Dates Sig (Normalized) Sig (Original) aspirin 81 mg oral tablet (20 sources) Platelet Aggregation Inhibitor, Nonsteroidal Anti-inflammatory Drug Start: 04-01-20 05 take 1 tablet by mouth once daily ASPIRIN 81 MG ORAL TAB Take one(1) tablet daily. 0 04/01/2005 Active Comment on above: Take one(1) tablet d aily. atenolol 50 mg oral tablet (20 sources) beta-Adrenergic Joao Start: 10-20-19 End: 09-25-19 take 1 tablet by mouth once daily atenolol (TENORMIN) 50 mg tablet Indications: Essential hypertension, benign Take 1 tablet by mouth once daily. 90 tablet 3 09/24/2024 Active Comment on above: Take 1 tablet by dinora once daily. cephalexin 500 mg oral capsule (1 source) Cephalosporin Antibacterial Start: 02-18-20 End: 02-25-20 take 1 capsule by mouth four times daily cephALEXin (KEFLEX) 500 mg capsule Take 1 capsule by mouth four times daily for 7 days. 28 capsule 02/17/2025 02/24/2025 Active cetirizine hydrochloride 10 mg oral capsule (20 sources) Histamine-1 Receptor Antagonist Start: 09-28-19 Cetirizine (ZYRTEC) 10 mg ORAL Cap Take by mouth. Take by mouth 30 capsule 0 09/27/2010 Active Comment on above: Take by mouth. Take by mouth enteric contrast (will be provided with radiology test) (2 sources) Start: 03-21-20 End: 03-22-20 enteric contrast (will be provided with radiology test) Indications: Infection in abdomen (HCC) , Other elevated white blood cell (WBC) count For CT ABD/PEL W IVCON Routine order Administer, As Directed One Time Only, via Oral, Rectal, both Oral and Rectal, Enteric Tube, Stoma or Indwelling Catheter, Enteric Contrast as designated per enteric contrast guidelines 1 each 03/21/2025 03/22/2025 Active hydroCHLOROthiazide 12.5 mg oral capsule (20 sources) Thiazide Diuretic Start: 10-20-19 End: 09-24-19 take 1 capsule by mouth once daily hydroCHLOROthiazide 12.5 mg capsule Indications: Essential hypertension, benign Take 1 capsule by mouth once daily. 90 capsule 3 09/23/2024 Active Comment on above: Take 1 capsule by mo [facility] once daily. iv contrast (will be provided with radiology test) (2 sources) Start: 03-21-20 End: 03-22-20 iv contrast (will be provided with radiology test) Indications: Infection in abdomen (HCC) , Other elevated white blood cell (WBC) count CT ABD/PEL -Inject, intravenously, once for 1 dose.No IV access, insert saline lock prior to the beginning of sedation, infusion, injection of imaging exam. Discontinue saline lock post exam. If Pt. has a central line or IVAD, may access for administration according to line specific nursing protocol. Once exam is complete flush line and de-access according to line specific nursing protocol in theCT contrast administration guidelines link. 1 each 03/21/2025 03/22/2025 Active levoFLOXacin 750 mg oral tablet (2 sources) Quinolone Antimicrobial Start: 02-11-20 take 1 tablet by mouth once daily Levofloxacin 750 mg tablet Active 750 mg PO DAILY 7 7 0 February 10, 2025 12:00am levothyroxine sodium 0.1 mg oral tablet (20 sources) l-Thyroxine Start: 10-21-19 End: 02-17-20 levothyroxine (LEVOXYL) 100 mcg tablet Indications: Hypothyroidism, unspecified type Take 1 tablet by mouth once daily. Except take only 1/2 tablet on Sundays 0 02/16/2025 Active Start: 03-15-2021 End: 10-18-2024 take 1 [...] (20 sources) Angiotensin 2 Receptor Joao Start: 03-02-2025 take 1 tablet by mouth once daily losartan (COZAAR) 25 mg tablet Indications: Elevated blood sugar Take 1 tablet by mouth once daily. 90 tablet 3 03/02/2025 Active Start: 09-01-2024 End: 02-25-2025 take 1 tablet by mouth once daily losartan (COZAAR) 25 mg tablet Indications: Elevated blood sugar Take 1 tablet by mouth once daily. 90 tablet 1 09/01/2024 02/25/2025 Discontinued Start: 11-05-2021 End: 08-28-2024 take 1 tablet [...] once daily. meloxicam 15 mg oral tablet (14 sources) Nonsteroidal Anti-inflammatory Drug Start: End: take 1 tablet by mouth once daily for pain meloxicam (MOBIC) 15 mg tablet Indications: Arthritis of carpometacarpal (CMC) joint of right thumb Take 1 tablet by mouth once daily. for pain. Take with food. 90 tablet 03/02/2025 05/31/2025 Active metroNIDAZOLE 500 mg oral tablet (2 sources) Nitroimidazole Antimicrobial Start: take 1 tablet by mouth twice daily Metronidazole 500 mg tablet Active 500 mg PO TWICE A DAY 14 7 February 10, 2025 12:00am ofloxacin 3 mg/ml [...] as needed for nausea Ondansetron 4 mg tablet,disintegrating Active 4 mg PO EVERY 8 HOURS NEEDED as needed for Nausea February 14, 2025 12:00am predniSONE 20 mg oral tablet (3 sources) Start: End: take 2 tablets by mouth once daily predniSONE (DELTASONE) 20 mg tablet Indications: Hives Take 2 tablets by mouth once daily for 5 days. 10 tablet 03/03/2024 03/08/2024 Active simvastatin 10 mg oral tablet (20 sources) HMG-CoA Reductase Inhibitor Start: 025 take 1 tablet by mouth once daily [...] THERAPEUTIC MULTIVITAMIN ORAL TAB (20 sources) Start: take 1 tablet by mouth once [...] Classification Problem Date Documented Da te Episodic/Chronic Abdominal pain (1 source) Unspecified abdominal pain; Translations: [Unspecified abdominal pain] Onset: 02-18-2025 Episodic Allergic reactions (1 source) Urticaria; Translations: [Urticaria, unspecified] 03-03-2024 Episodic Biliary tract disease (3 sources) Cholangiectasis; Translations: [Other specified diseases of biliary tract] Onset: 03-21-2025 03-21-2025 Chronic Diabetes mellitus without complication (7 sources) Hyperglycemia; Translations: [Hyperglycemia, unspecified] Episodic Diseases of mouth; excluding dental (1 source) Oral lesion; Translations: [Unspecified lesions of oral mucosa] 03-05-2024 Episodic Diseases of white blood cells (7 sources) Leukocytosis; Translations: [Elevated white blood cell count, unspecified] Onset: 02-16-2025 02-10-2025 Chronic Disorders of lipid metabolism (20 sources) Hyperlipidemia; Translations: [Hyperlipidemia, unspecified] Onset: 02-23-2009 07-02-2021 Chronic Diverticulosis and diverticulitis (20 sources) Diverticulosis of colon; Translations: [Diverticulosis of large intestine without perforation or abscess without bleeding] Onset: 03-15-2011 03-15-2011 Chronic Essential hypertension (20 sources) Benign essential hypertension; Translations: [Essential (primary) hypertension] Onset: 04-01-2005 Chronic Fluid and electrolyte disorders (2 sources) Dehydration; Translations: [Dehydration] Onset: 02-16-2025 02-16-2025 Episodic Genitourinary symptoms and ill-defined conditions (4 sources) Blood in urine; Translations: [Hematuria, unspecified] Onset: 02-16-2025 02-16-2025 Episodic Immunizations and screening for infectious disease (5 sources) Needs influenza immunization; Translations: [Encounter for immunization] Onset: 03-21-2025 Episodic Intestinal infection (2 sources) Other intestinal Escherichia coli infections; Translations: [Intestinal infection due to E. coli, unspecified] Onset: 03-21-2025 03-21-2025 Episodic Malaise and fatigue (4 sources) Asthenia; Translations: [Weakness] Onset: 02-16-2025 02-16-2025 Episodic Mood disorders (20 sources) Dysthymia; Translations: [Dysthymic disorder] Onset: 04-01-2005 11-01-2014 Chronic Neoplasms of unspecified nature or uncertain behavior (1 source) Thrombocytosis; Translations: [Thrombocytosis] Onset: 02-16-2025 Chronic Neoplasms of unspecified nature or uncertain behavior (1 source) Thrombocytosis; Translations: [Thrombocytosis] 02-16-2025 Episodic Noninfectious gastroenteritis (5 sources) Proctocolitis; Translations: [Noninfective gastroenteritis and colitis, unspecified] Onset: 02-16-2025 02-10-2025 Episodic Nonmalignant breast conditions (20 sources) Fibrocystic disease of breast; Translations: [Diffuse cystic mastopathy of unspecified breast] Onset: 2011 2011 Chronic Nutritional deficiencies (2 sources) Vitamin D deficiency; Translations: [Vitamin D deficiency, unspecified] Onset: 03-21-2025 03-21-2025 Chronic Nutritional deficiencies (4 sources) Cobalamin deficiency; Translations: [Deficiency of other specified B group vitamins] Onset: 03-21-2025 03-21-2025 Episodic Osteoarthritis (3 sources) Arthritis of first carpometacarpal joint of right hand; Translations: [Unilateral primary osteoarthritis of first carpometacarpal joint, right hand] 09-14-2024 Chronic Other aftercare (1 source) Other prison (current) drug therapy; Translations: [Medication management] Onset: 03-19-2025 Episodic Other ear and sense organ disorders (1 source) Otalgia, left ear; Translations: [Otalgia, unspecified] 03-05-2024 Episodic Other gastrointestinal disorders (2 sources) Diarrhea, unspecified; Translations: [Diarrhea, unspecified] Onset: 02-09-2025 Episodic Other hematologic conditions (1 source) MCV - raised; Translations: [Other abnormality of red blood cells] Episodic Other infections; including parasitic (2 sources) Infectious disease of abdomen; Translations: [Peritonitis, unspecified] 03-21-2025 Episodic Other nutritional; endocrine; and metabolic disorders (1 source) Decrease in appetite; Translations: [Anorexia] 02-16-2025 Episodic Other nutritional; endocrine; and metabolic disorders (1 source) Excessive weight loss; Translations: [Abnormal weight loss] 03-21-2025 Episodic Other nutritional; endocrine; and metabolic disorders (2 sources) Abnormal weight loss; Translations: [Excessive body weight loss] Onset: 02-09-2025 Episodic Other nutritional; endocrine; and metabolic disorders (1 source) Anorexia; Translations: [Decreased appetite] Onset: 02-16-2025 Episodic Other upper respiratory disease (20 sources) Allergic rhinitis; Translations: [Allergic rhinitis, unspecified] Onset: 03-08-2010 03-08-2010 Chronic Peritonitis and intestinal abscess (1 source) Peritonitis, unspecified; Translations: [Infection in abdomen (HCC)] Onset: 03-21-2025 Episodic Regional enteritis and ulcerative colitis (1 source) 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 Spondylosis; intervertebral disc disorders; other back problems (5 sources) Neck pain; Translations: [Cervicalgia] Onset: 03-21-2025 03-21-2025 Episodic Thyroid disorders (20 sources) Hypothyroidism; Translations: [Hypothyroidism, [...] Test Name Value Interpretation Reference Range Facility 25(OH)D3 [facility] 2024 25-hydroxyvitamin D3 [Mass/Vol] 41.8 ng/mL Normal 31.0-80.0 [facility] Comment on above: Order Comment: Speci men Type: BLOOD SPECIMENOrdering Facility: [facility] Address: [address] [place] [id number] Result Comment: Clas sification of 25 [place] Vitamin D status: Deficiency/Insufficiency: < or = 30 ng/ml. Sufficiency/Optimal Levels: 31-80 ng/mL Toxicity: > 100 ng/mL. Test performed by chemiluminescent immunoassay. Performed By: #### 1 989-3 ####[facility] [id number] [place] [id number] [place] 25-hydroxyvitamin D3 [Mass/V ol]on 03-21-2025 Interpretation and review of laboratory results Normal [facility] The reference range interval was based on an analysis of samples from healthy adults and may not pertain to children from 0-18 years old. [facility] CBC W Auto Differential pane l (Bld)on 03-21-2025 Basophils (Bld) [#/Vol] 0.13 10*3/uL High [facility] Basophils/100 WBC (Bld) 0.8 % C [facility] Differential cell count method Nom (Bld) Auto [facility] Eosinophils (Bld) [#/Vol] 0.07 10*3/uL [facility] Eosinophils/100 WBC (Bld) 0.4 % [facility] Erythrocyte distribution width (RBC) [Ratio] 13.9 % 11.5 - 15.0 % [facility] Hematocrit (Bld) [Volume fraction] 38.7 % 36.0 - 46.0 % [facility] Hemoglobin (Bld) [Mass/Vol] 12.0 g/dL 11.5 - 15.5 g/dL [facility] Immature granulocytes (Bld) [#/Vol] 0.09 10*3/uL [facility] Immature granulocytes/100 WBC (Bld) 0.6 % [facility] Interpretation and review of laboratory results Abnormal [facility] Lymphocytes (Bld) [#/Vol] 1.66 10*3/uL [facility] Lymphocytes/100 WBC (Bld) 10.5 % [facility] MCH (RBC) [Entitic mass] 31.9 pg 26. 0 - 34.0 pg [facility] MCHC (RBC) [Mass/Vol] 31.0 g/dL 30.5 - 36.0 g/dL [facility] MCV (RBC) [Entitic vol] 102.9 fL High 80.0 - 100.0 fL [facility] Monocytes (Bld) [#/Vol] 1.26 10*3/uL High [facility] Monocytes/100 WBC (Bld) 8.0 % C [facility] Neutrophils (Bld) [#/Vol] 12.57 10*3/uL High [facility] Neutrophils/100 WBC (Bld) 79.7 % [facility] Nucleated RBC (Bld) [#/Vol] NINF [facility] Nucleated RBC/100 WBC (Bld) [Ratio] 0.0 % /100 WBC [facility] Platelet mean volume (Bld) [Entitic vol] 8.4 fL Low 9.0 - 12.7 fL [facility] Platelets (Bld) [#/Vol] 615 10*3/uL High [facility] RBC (Bld) [#/Vol] 3.76 10*6/uL Low 3.90 - 5.2 0 m/uL [facility] WBC (Bld) [#/Vol] 15.78 10*3/uL High [facility] Basophils (Bld) [#/Vol] 0.13 10*3/uL High <0.11 [facility] Comment on above: Order Comment: Speci men Type: BLOOD SPECIMEN [facility]ing Facility: [facility] Address: [address] [place] [address] Performed By: #### 5 7021-8 #### [facility] CLIA [id number] [address] [place] [address] [place] Basophils/100 WBC (Bld) 0.8 % Normal [facility] Comment on above: Order Comment: Speci men Type: BLOOD SPECIMEN Ordering Facility: [facility] Address: [address] [place] [address] Performed By: #### 5 7021-8 #### [facility] CLIA [id number] [address] [place] [address] [place] Differential cell count method Nom (Bld) Auto Normal [facility] Comment on above: Order Comment: Speci men Type: BLOOD SPECIMEN [facility]ing Facility: [facility] Address: [address] [place] [address] Performed By: #### 5 7021-8 #### [facility] CLIA [id number] [address] [place] [address] [place] Eosinophils (Bld) [#/Vol] 0.07 10*3/uL Normal <0.46 [facility] Comment on above: Order Comment: Speci men Type: BLOOD SPECIMEN [facility]ing Facility: [facility] Address: [address] [place] [address] Performed By: #### 5 7021-8 #### [facility] CLIA [id number] [address] [place] [address] [place] Eosinophils/100 WBC (Bld) 0.4 % Normal [facility] Comment on above: Order Comment: Speci men Type: BLOOD SPECIMEN Ordering Facility: [facility] Address: [address] [place] [address] Performed By: #### 5 7021-8 #### [facility] CLIA [id number] [address] [place] [address] [place] Erythrocyte distribution width (RBC) [Ratio] 13.9 % Normal 11.5-15.0 [facility] Comment on above: Order Comment: Speci men Type: BLOOD SPECIMEN Ordering Facility: [facility] Address: [address] [place] [address] Performed By: #### 5 7021-8 #### [facility] CLIA [id number] [address] [place] [address] [place] Hematocrit (Bld) [Volume fraction] 38.7 % Normal 36.0-46.0 [facility] Comment on above: Order Comment: Speci men Type: BLOOD SPECIMEN Ordering Facility: [facility] Address: [address] [place] [address] Performed By: #### 5 7021-8 #### [facility] CLIA [id number] [address] [place] [address] [place] Hemoglobin (Bld) [Mass/Vol] 12.0 g/dL Normal 11.5-15.5 [facility] Comment on above: Order Comment: Speci men Type: BLOOD SPECIMEN [facility]ing Facility: [facility] Address: [address] [place] [address] Performed By: #### 5 7021-8 #### [facility] CLIA [id number] [address] [place] [address] [place] Immature granulocytes (Bld) [#/Vol] 0.09 10*3/uL Normal <0.10 [facility] Comment on above: Order Comment: Speci men Type: BLOOD SPECIMEN [facility]ing Facility: [facility] Address: [address] [place] [address] Performed By: #### 5 7021-8 #### [facility] CLIA [id number] [address] [place] [address] [place] Immature granulocytes/100 WBC (Bld) 0.6 % Normal [facility] Comment on above: Order Comment: Speci men Type: BLOOD SPECIMEN [facility]ing Facility: [facility] Address: [address] [place] [address] Performed By: #### 5 7021-8 #### [facility] CLIA [id number] [address] [place] [address] [place] Lymphocytes (Bld) [#/Vol] 1.66 10*3/uL Normal 1.00-4.00 [facility] Comment on above: Order Comment: Speci men Type: BLOOD SPECIMEN [facility]ing Facility: [facility] Address: [address] [place] [address] Performed By: #### 5 7021-8 #### [facility] CLIA [id number] [address] [place] [address] [place] Lymphocytes/100 WBC (Bld) 10.5 % Normal [facility] Comment on above: Order Comment: Speci men Type: BLOOD SPECIMEN [facility]ing Facility: [facility] Address: [address] [place] [address] Performed By: #### 5 7021-8 #### [facility] CLIA [id number] [address] [place] [address] [place] MCH (RBC) [Entitic mass] 31.9 pg Normal 26.0-34.0 [facility] Comment on above: Order Comment: Speci men Type: BLOOD SPECIMEN [facility]ing Facility: [facility] Address: [address] [place] [address] Performed By: #### 5 7021-8 #### [facility] CLIA [id number] [address] [place] [address] [place] MCHC (RBC) [Mass/Vol] 31.0 g/dL Normal 30.5-36.0 [place] Comment on above: Order Comment: Speci men Type: BLOOD SPECIMEN Ordering Facility: [facility] Address: [address] [place] [address] Performed By: #### 5 7021-8 #### [facility] CLIA [id number] [address] [place] [address] [place] MCV (RBC) [Entitic vol] 102.9 fL High 80.0-100.0 C [facility] Comment on above: Order Comment: Speci men Type: BLOOD SPECIMEN [facility] Facility[facility] Address: [address] [place] [address] Performed By: #### 5 7021-8 #### [facility] CLIA [id number] [address] [place] [address] [place] Monocytes (Bld) [#/Vol] 1.26 10*3/uL High <0.87 [facility] Comment on above: Order Comment: Speci men Type: BLOOD SPECIMEN [facility] Facility[facility] Address: [address] [place] [address] Performed By: #### 5 7021-8 #### [facility] CLIA [id number] [address] [place] [address] [place] Monocytes/100 WBC (Bld) 8.0 % Normal C [facility] Comment on above: Order Comment: Speci men Type: BLOOD SPECIMEN [facility]ing Facility: [facility] Address: [address] [place] [address] Performed By: #### 5 7021-8 #### [facility] CLIA [id number] [address] [place] [address] [place] Neutrophils (Bld) [#/Vol] 12.57 10*3/uL High 1.45-7.50 [facility] Comment on above: Order Comment: Speci men Type: BLOOD SPECIMEN Ordering Facility: [facility] Address: [address] [place] [address] Performed By: #### 5 7021-8 #### [facility] CLIA [id number] [address] [place] [address] [place] Neutrophils/100 WBC (Bld) 79.7 % Normal [facility] Comment on above: Order Comment: Speci men Type: BLOOD SPECIMEN [facility] Facility[facility] Address: [address] [place] [address] Performed By: #### 5 7021-8 #### [facility] CLIA [id number] [address] [place] [address] [place] Nucleated RBC (Bld) [#/Vol] 10*3/uL Normal <0.01 [facility] Comment on above: Order Comment: Speci men Type: BLOOD SPECIMEN [facility]ing Facility: [facility] Address: [address] [place] [address] Performed By: #### 5 7021-8 #### [facility] CLIA [id number] [address] [place] [address] [place] Nucleated RBC/100 WBC (Bld) [Ratio] 0.0 /100 WBC Normal [facility] Comment on above: Order Comment: Speci men Type: BLOOD SPECIMEN Ordering Facility: [facility] Address: [address] [place] [address] Performed By: #### 5 7021-8 #### [facility] CLIA [id number] [address] [place], [place] [id number] [place] Platelet mean volume (Bld) [Entitic vol] 8.4 fL Low 9.0-12.7 [facility] Comment on above: Order Comment: Speci men Type: BLOOD SPECIMEN Ordering Facility: [facility] Address: [address] [place] [address] Performed By: #### 5 7021-8 #### [facility] CLIA [id number] [address] [place] [address] [place] Platelets (Bld) [#/Vol] 615 10*3/uL High 150-400 [facility] Comment on above: Order Comment: Speci men Type: BLOOD SPECIMEN Ordering Facility: [facility] Address: [address] [place] [address] Performed By: #### 5 7021-8 #### [facility] CLIA [id number] [address] [place] [address] [place] RBC (Bld) [#/Vol] 3.76 10*6/uL Low 3.90-5.20 [facility] Comment on above: Order Comment: Speci men Type: BLOOD SPECIMEN Ordering Facility: [facility] Address: [address] [place] [address] Performed By: #### 5 7021-8 #### [facility] CLIA [id number] [address] [place] [address] [place] WBC (Bld) [#/Vol] 15.78 10*3/uL High 3.70-11.00 [facility] Comment on above: Order Comment: Speci men Type: BLOOD SPECIMEN Ordering Facility: [facility] Address: [address] [place] [address] Performed By: #### 5 7021-8 #### [facility] CLIA [id number] [address] [place] [address] [place] CNOVon 03-21-2025 CNOV Office Visit (INTMWS ) PATY RIOS ([id number]) 1940 F Date Time Provider Department 03/21/25 9:00 AM RUSS BARONE INTMWS During your visit today, we recorded the following information about you: Pulse Respiration Blood pressure Weight 92/minute 16/minute 117/72 42.2 kg Russ Barone MD 03/21/2025 10:01 AM Signed We discussed your recent health concerns, including weight loss, fatigue, and neck pain: - Weight Loss and Fatigue: - You have lost 14 pounds over the past three months, which is significant for your body weight. However, your weight has stabilized over the past two weeks, and you are eating more than before. - Continue eating small, frequent meals and incorporating calorie-dense snacks like potato chips, popcorn, and cookies, as you have been doing. - We will monitor your weight and overall progress. Please let me know if you experience further weight loss or worsening fatigue. - Neck Pain: - You reported significant neck pain that has worsened over time and is now affecting your daily activities. You are currently taking Meloxicam, Tylenol 8-hour, and regular Tylenol for pain relief. - I have ordered an x-ray of your neck to evaluate the cause of your pain. After reviewing the results, we may consider physical therapy as the next step. - Gastrointestinal Concerns: - Your diarrhea has resolved, and you are not experiencing abdominal pain or discomfort. However, due to your history of intestinal infection and findings from your previous CT scan, I have ordered: - A CT scan of the abdomen and pelvis with oral and IV contrast to evaluate the rectosigmoid area and bile ducts. - An ultrasound of the gallbladder to further assess the bile ducts and rule out any abnormalities. - Please schedule these imaging studies within the next two weeks. - Blood Work: - Your white blood cell count was previously elevated. I have ordered repeat blood work, including a complete blood count (CBC), to monitor for any ongoing issues. Please complete this today. - Thyroid Management: - Your thyroid levels have normalized with the current adjustment to your medication (taking half a tablet on Sundays). Continue this regimen as prescribed. ### Next Steps: - Schedule the CT scan of the abdomen and pelvis and the ultrasound of the gallbladder within the next two weeks. - Complete your blood work and neck x-ray today. - Follow up with me in one week to review your test results, monitor your weight, and discuss any changes in your symptoms. Thank you for sharing your concerns. I look forward to seeing you next week to continue addressing these issues. Russ Barone MD 03/21/2025 1:06 PM Signed Reason for Visit Follow up issues HPI Marianela Rios is an 84-year-old female, with a history of significant weight loss and neck pain, presenting for follow-up. Marianela reports a 14 lb weight loss over the past 3 months, with the majority occurring within a 2-4 week period when she was bedridden due to illness. Her current weight is 93 lbs, down from her usual 105-109 lbs. She notes that her weight has stabilized over the past 2 weeks, and she has even gained a small amount. Despite eating more than usual, she finds it difficult to gain weight and feels full relatively quickly. Her diet includes an oatmeal breakfast bar, orange juice, coffee, an egg for breakfast, cheese, crackers, and fruit for lunch, and Lean Cuisine meals or small portions of meatloaf or ham loaf for dinner. She has also added snacks like potato chips, popcorn, and cookies to her diet. Marianela reports persistent fatigue and low energy levels, stating that activities that were previously easy now leave her exhausted. She also reports significant neck pain, which she describes as "almost debilitating." She has been taking meloxicam, which was effective for 6-7 weeks but has since become less effective. She also takes 2 8-hour Tylenol in the morning and 2 Tylenol at night. The pain is only relieved when she is lying down with pillows behind her neck. Marianela's illness began with 3 days of diarrhea, after which she was advised to go to the emergency room due to dehydration. A CT scan and blood work revealed an intestinal infection, and she was prescribed 2 antibiotics. She had a bad reaction to the antibiotics, resulting in emesis, and returned to the emergency room for another IV. She was then prescribed a different antibiotic, which she tolerated well and completed the course. She reports no current diarrhea, abdominal discomfort, or sensitivity to food. She has an appointment with a park naturalist at the end of April. A recent CT scan revealed a small hiatal hernia, diffuse wall thickening of the sigmoid colon and rectum with fat stranding, no obstruction or perforation, moderate colonic stool, (more content not included)... Normal [facility] Cobalamin (Vitamin B12) [Mas s/Vol]on 03-21-2025 Interpretation and review of laboratory results Normal [facility] Comprehensive metabolic 2000 panelon 03-21-2025 Albumin [Mass/Vol] 3.1 g/dL Low 3.9 - 4.9 g/dL [facility] ALP [Catalytic activity/Vol] 121 U/L 34 - 123 U/L [facility] ALT [Catalytic activity/Vol] U/L Low 7 - 38 U/L [facility] Comment on above: Result rechecked. Anion gap [Moles/Vol] 11 mmol/L 8 - 15 mmol/L [facility] AST [Catalytic activity/Vol] 11 U/L Low 13 - 35 U/L [facility] Bilirubin [Mass/Vol] 0.4 mg/dL 0.2 - 1 .3 mg/dL [facility] Calcium [Mass/Vol] 9.2 mg/dL 8.5 - 10. 2 mg/dL [facility] Chloride [Moles/Vol] 100 mmol/L 98 - 10 7 mmol/L [facility] CO2 [Moles/Vol] 25 mmol/L 22 - 30 mmol/L [facility] Creatinine [Mass/Vol] 0.68 mg/dL 0.58 - 0.96 mg/dL [facility] GFR/1.73 sq M.predicted among non-blacks MDRD (S/P/Bld) [Vol rate/Area] 85 mL/min/{1.73_m2} - PINF [facility] Comment on above: Estimated Glomerular Filtration Rate (eGFR) is calculated using the 2020 CKD-EPI creatinine equation. This equation utilizes serum creatinine, sex, and age as parameters. The creatinine assay has traceable calibration to isotope dilution-mass spectrometry. Refer to KDIGO guidelines for clinical interpretation. In patients with unstable renal function, e.g. those with acute kidney injury, the eGFR may not accurately reflect actual GFR. Glucose [Mass/Vol] 99 mg/dL 74 - 99 mg/dL [facility] Comment on above: The [place] Diabete s Association (ADA) provides guidance for cutoff values [...] Standards of Medical Care in Diabetes 2016, [place] Diabetes Association. Diabetes Care. 2016.39(Suppl 1). Interpretation and review of laboratory results Abnormal [facility] Potassium [Moles/Vol] 4.2 mmol/L 3.7 - 5.1 mmol/L [facility] Protein [Mass/Vol] 7.2 g/dL 6.3 - 8.0 g/dL [facility] Sodium [Moles/Vol] 136 mmol/L 136 - 144 mmol/L [facility] Urea nitrogen [Mass/Vol] 17 mg/dL 7 - 21 mg/d L [facility] Albumin [Mass/Vol] 3.1 g/dL Low 3.9-4.9 [facility] Comment on above: Order Comment: Speci men Type: BLOOD SPECIMENOrdering Facility: [facility] Address: [address] [place] [address] [place] [address] Performed By: #### 2 4323-8, 2132-9, 2276-4, 76867-8 ####[facility] [id number] [place] [address] [place] ALP [Catalytic activity/Vol] 121 U/L Normal 34-123 [facility] Comment on above: Order Comment: Speci men Type: BLOOD SPECIMENOrdering Facility: [facility] Address: [address] [place] [address] Performed By: #### 2 4323-8, 9, 4, 01815-6 ####[facility] [id number] [facility] [address] [address] [place] ALT [Catalytic activity/Vol] U/L Low 7-38 [facility] Comment on above: Order Comment: Speci men Type: BLOOD SPECIMENOrdering Facility: [facility] Address: [address] [place], [place] [address] Result Comment: Resu lt rechecked. Performed By: #### 2 4323-8, 9, 2275-10, 16303-4 ####[facility] [id number] [place] [address] [place] Anion gap [Moles/Vol] 11 mmol/L Normal 8-15 [place] Comment on above: Order Comment: Speci men Type: BLOOD SPECIMENOrdering Facility: [facility] Address: [address] [place], [place] [address] Performed By: #### 2 4323-8, 9, 4, 51505-1 ####[facility] [id number] [place] [address] [place] AST [Catalytic activity/Vol] 11 U/L Low 13-35 [facility] Comment on above: Order Comment: Speci men Type: BLOOD SPECIMENOrdering Facility: [facility] Address: [address] [place] [address] Performed By: #### 2 4323-8, 9, 2275-10, 53498-3 ####[facility] [id number] [facility] [address] [address] [place] Bilirubin [Mass/Vol] 0.4 mg/dL Normal 0.2-1.3 [facility] Comment on above: Order Comment: Speci men Type: BLOOD SPECIMENOrdering Facility: [facility] Address: [address] [place], [place] [address] Performed By: #### 2 4323-8, 9, 2275-10, 29424-1 ####[facility]CLIA [id number] [facility]ENTER[facility] AVENUEDESK [address] [address] [place] Calcium [Mass/Vol] 9.2 mg/dL Normal 8.5-10.2 [facility] Comment on above: Order Comment: Speci men Type: BLOOD SPECIMENOrdering Facility: [facility] Address: [address] [place] [address] Performed By: #### 2 4323-8, 2132-03, 2275-10, 84548-0 ####[facility]IA [id number] [facility] [place] [id number] [place] Chloride [Moles/Vol] 100 mmol/L Normal 98-107 [facility] Comment on above: Order Comment: Speci men Type: BLOOD SPECIMENOrdering Facility: [facility] Address: [address] [place], [place] [address] Performed By: #### 2 4323-8, 2132-03, 2275-10, 26797-0 ####[facility]IA [id number] [facility] [address] [address] [place] CO2 [Moles/Vol] 25 mmol/L Normal 22-30 [facility] Comment on above: Order Comment: Speci men Type: BLOOD SPECIMENOrdering Facility: [facility] Address: [address] [place], [place] [address] Performed By: #### 2 4323-8, 9, 2275-10, 19776-4 ####[facility]IA [id number] [facility] [address] [facility] [address] [address] [place] Creatinine [Mass/Vol] 0.68 mg/dL Normal 0.58-0.96 [place] Comment on above: Order Comment: Tomasz mast Type: BLOOD SPECIMENOrdering Facility: [facility] Address: [address] [place] [id number] Performed By: #### 2 4323-8, 2132-9, 6-4, 14243-8 ####[facility]IA [id number] [address] [address] [place] eGFRcr SerPlBld CKD-EPI 2020 85 mL/min/1.73m??? Normal >=60 [facility] Comment on above: Order Comment: Tomasz mast Type: BLOOD SPECIMENOrdering Facility: [facility] Address: [address] [place] [address] Result Comment: Briana mated Glomerular Filtration Rate [...] actual GFR. Performed By: #### 2 4323-8, 2-9, 2275-4, 21798-6 ####[facility] [id number] [address] [address] [place] Glucose [Mass/Vol] 99 mg/dL Normal 74-99 [facility] Comment on above: Order Comment: Tomasz mast Type: BLOOD SPECIMENOrdering Facility: [facility] Address: [address] [place] [id number] Result Comment: The [place] Diabetes Association (ADA) provides guidance for cutoff [...] Standards of Medical Care in Diabetes 2016, [place] Diabetes Association. Diabetes Care. 2016.39(Suppl 1). Performed By: #### 2 4323-8, 9, 2275-10, 05967-2 ####[facility] [id number] [facility] [id number] [address] [place] Potassium [Moles/Vol] 4.2 mmol/L Normal 3.7-5.1 [place] Comment on above: Order Comment: Speci men Type: BLOOD SPECIMENOrdering Facility: [facility] Address: [address] [place], [place] [address] Performed By: #### 2 4323-8, 9, 2275-10, 12919-8 ####[facility]IA [id number] [facility] [address] [place] [address] [place] Protein [Mass/Vol] 7.2 g/dL Normal 6.3-8.0 [facility] Comment on above: Order Comment: Speci men Type: BLOOD SPECIMENOrdering Facility: [facility] Address: [address] [place] [address] Performed By: #### 2 4323-8, 2132-03, 2275-10, 89094-4 ####[facility]CLIA [id number] [facility] [address] [address] [place] Sodium [Moles/Vol] 136 mmol/L Normal 136-144 [facility] Comment on above: Order Comment: Speci men Type: BLOOD SPECIMENOrdering Facility: [facility] Address: [address] [place] [address] Performed By: #### 2 4323-8, 2132-03, 2275-10, 26054-0 ####[facility]CLIA [id number] [facility] [address] [address] [place] Urea nitrogen [Mass/Vol] 17 mg/dL Normal 7-21 [facility] Comment on above: Order Comment: Speci men Type: BLOOD SPECIMENOrdering Facility: [facility] Address: [address] [place] [address] Performed By: #### 2 4323-8, 2132-03, 2275-10, 23753-8 ####[facility] LABCLIA [id number] [place] [id number] [place] FERRITINon 03-21-2025 Ferritin [Mass/Vol] 359.0 ng/mL High 14.7 - 2 05.1 ng/mL [facility] Ferritin SerPl-mCncon 2024 Ferritin [Mass/Vol] 359.0 ng/mL High 14.7-205.1 [facility] Comment on above: Order Comment: Speci men Type: BLOOD SPECIMENOrdering Facility: [facility] Address: [address] [place] [address] Performed By: #### 2 4323-8, 2132-03, 2275-10, 88811-7 ####[facility]CLIA [id number] [place] [id number] [place] Ferritin [Mass/Vol]on 2024 Interpretation and review of laboratory results Abnormal [facility] Iron and Iron binding capaci ty panelon 03-21-2025 Interpretation and review of laboratory results Abnormal [facility] Iron [Mass/Vol] 19 ug/dL Low 41 - 186 ug/dL [facility] Iron binding capacity [Mass/Vol] 212 ug/dL Low 232 - 386 ug/dL [facility] Iron/TIBC [Molar ratio] 9.0 % Low 15.0 - 57.0 % [facility] Iron [Mass/Vol] 19 ug/dL Low 41-186 [facility] Comment on above: Order Comment: Speci men Type: BLOOD SPECIMENOrdering Facility: [facility] Address: [address] [place] [address] Performed By: #### 2 4323-8, 2132-03, 2275-10, 16740-0 ####[facility]CLIA [id number] [place] [id number] [place] Iron binding capacity [Mass/Vol] 212 ug/dL Low 232-386 [facility] Comment on above: Order Comment: Speci men Type: BLOOD SPECIMENOrdering Facility: [facility] Address: [address] [place], [place] [address] Performed By: #### 2 4323-8, 2131-9, 6-4, 63540-5 ####[facility]IA [id number] [place] [id number] [place] Iron/TIBC [Molar ratio] 9.0 % Low 15.0-57.0 C [facility] Comment on above: Order Comment: Speci men Type: BLOOD SPECIMENOrdering Facility: [facility] Address: [address] [place] [address] Performed By: #### 2 4323-8, 9, 2275-10, 59726-2 ####[facility]IA [id number] [place] [id number] [place] VITAMIN B12on 03-21-2025 Cobalamin (Vitamin B12) [Mass/Vol] 579 pg/mL 232 - 1245 pg/mL [facility] VITAMIN D 25 HYDROXYon 03-21 25-hydroxyvitamin D3 [Mass/Vol] 41.8 ng/mL 31.0 - 80.0 ng/mL [facility] Comment on above: Classification of 25 [place] Vitamin D status: Deficiency/Insufficiency: < or = 30 ng/ml. Sufficiency/Optimal Levels: 31-80 ng/mL Toxicity: > 100 ng/mL. Test performed by chemiluminescent immunoassay. Vit B12 SerPl-mCncon 025 Cobalamin (Vitamin B12) [Mass/Vol] 579 pg/mL Normal 232-1245 [facility] Comment on above: Order Comment: Speci men Type: BLOOD SPECIMENOrdering Facility: [facility] Address: [address] [place] [address] Performed By: #### 2 4323-8, 2131-9, 2275-, 36060-8 ####[facility] LABCLIA [id number] [place] [address] [place] T4 Free SerPl-mCncon 025 Free T4 [Mass/Vol] 1.3 ng/dL Normal 0.9-1.7 [facility] Comment on above: Order Comment: Speci men Type: BLOOD SPECIMEN [facility] Address: [address] [place] [address] Performed By: #### 5 7021-8 #### [facility] CLIA [id number] [address] [place] [address] [place] TSH SerPl-aCncon 03-19-2025 TSH Qn 2.130 m[IU]/L Normal 0.270-4.200 [facility] Comment on above: Order Comment: Speci men Type: BLOOD SPECIMEN [facility] Address: [address] [place] [address] Performed By: #### 5 7021-8 #### [facility] CLIA [id number] [address] [place] [address] [place] CBC W Auto Differential pane l (Bld)on 02-16-2025 Basophils (Bld) [#/Vol] 0.08 10*3/uL [facility] Basophils/100 WBC (Bld) 0.4 % [facility] Differential cell count method Nom (Bld) Auto [facility] Eosinophils (Bld) [#/Vol] 0.04 10*3/uL [facility] Eosinophils/100 WBC (Bld) 0.2 % [facility] Erythrocyte distribution width (RBC) [Ratio] 14.4 % 11.5 - 15.0 % [facility] Hematocrit (Bld) [Volume fraction] 37.7 % 36.0 - 46.0 % [facility] Hemoglobin (Bld) [Mass/Vol] 12.4 g/dL 11.5 - 15.5 g/dL [facility] Immature granulocytes (Bld) [#/Vol] 0.22 10*3/uL High [facility] Immature granulocytes/100 WBC (Bld) 1.1 % [facility] Interpretation and review of laboratory results Abnormal [facility] Lymphocytes (Bld) [#/Vol] 1.37 10*3/uL [facility] Lymphocytes/100 WBC (Bld) 6.8 % [facility] MCH (RBC) [Entitic mass] 31.9 pg 26. 0 - 34.0 pg [facility] MCHC (RBC) [Mass/Vol] 32.9 g/dL 30.5 - 36.0 g/dL [facility] MCV (RBC) [Entitic vol] 96.9 fL 80.0 - 100.0 fL [facility] Monocytes (Bld) [#/Vol] 1.50 10*3/uL High [facility] Monocytes/100 WBC (Bld) 7.4 % C [facility] Neutrophils (Bld) [#/Vol] 17.04 10*3/uL High [facility] Neutrophils/100 WBC (Bld) 84.1 % [facility] Nucleated RBC (Bld) [#/Vol] [facility] Nucleated RBC/100 WBC (Bld) [Ratio] 0.0 % /100 WBC [facility] Platelet mean volume (Bld) [Entitic vol] 7.9 fL Low 9.0 - 12.7 fL [facility] Platelets (Bld) [#/Vol] 575 10*3/uL High [facility] RBC (Bld) [#/Vol] 3.89 10*6/uL Low 3.90 - 5.2 0 m/uL [facility] WBC (Bld) [#/Vol] 20.25 10*3/uL High [facility] Basophils (Bld) [#/Vol] 0.08 10*3/uL Normal <0.11 [facility] Comment on above: Order Comment: Speci men Type: BLOOD SPECIMENOrdering Facility: [facility] Address: [address] [place] [address] Performed By: #### 5 7021-8 ####[facility] CENTERTaylor [id number] [place] [address] [place] Basophils/100 WBC (Bld) 0.4 % Normal [facility] Comment on above: Order Comment: Speci men Type: BLOOD SPECIMENOrdering Facility: [facility] Address: [address] [place] [address] Performed By: #### 5 7021-8 ####[facility] MOREYNALDO [id number] [place] [address] [place] Differential cell count method Nom (Bld) Auto Normal [facility] Comment on above: Order Comment: Speci men Type: BLOOD SPECIMENOrdering Facility: [facility] Address: [address] [place] [address] Performed By: #### 5 7021-8 ####[facility] [id number] [place] [address] [place] Eosinophils (Bld) [#/Vol] 0.04 10*3/uL Normal <0.46 [facility] Comment on above: Order Comment: Speci men Type: BLOOD SPECIMENOrdering Facility: [facility] Address: [address] [place] [address] Performed By: #### 5 7021-8 ####[facility] [id number] [place] [address] [place] Eosinophils/100 WBC (Bld) 0.2 % Normal [facility] Comment on above: Order Comment: Speci men Type: BLOOD SPECIMENOrdering Facility: [facility] Address: [address] [place] [address] Performed By: #### 5 7021-8 ####[facility] [id number] [place] [address] [place] Erythrocyte distribution width (RBC) [Ratio] 14.4 % Normal 11.5-15.0 [facility] Comment on above: Order Comment: Speci men Type: BLOOD SPECIMENOrdering Facility: [facility] Address: [address] [place] [address] Performed By: #### 5 7021-8 ####[facility]ITALWNCLIA [id number] [place] [address] [place] Hematocrit (Bld) [Volume fraction] 37.7 % Normal 36.0-46.0 [facility] Comment on above: Order Comment: Speci men Type: BLOOD SPECIMENOrdering Facility: [facility] Address: [address] [place] [address] Performed By: #### 5 7021-8 ####[facility] HOSPITALLIA [id number] [place] [address] [place] Hemoglobin (Bld) [Mass/Vol] 12.4 g/dL Normal 11.5-15.5 [facility] Comment on above: Order Comment: Speci men Type: BLOOD SPECIMENOrdering Facility: [facility] Address: [address] [place] [address] Performed By: #### 5 7021-8 ####[facility]A [id number] [place] [address] [place] Immature granulocytes (Bld) [#/Vol] 0.22 10*3/uL High <0.10 [facility] Comment on above: Order Comment: Speci men Type: BLOOD SPECIMENOrdering Facility: [facility] Address: [address] [place] [address] Performed By: #### 5 7021-8 ####[facility] [id number] [place] [address] [place] Immature granulocytes/100 WBC (Bld) 1.1 % Normal [facility] Comment on above: Order Comment: Speci men Type: BLOOD SPECIMENOrdering Facility: [facility] Address: [address] [place] [address] Performed By: #### 5 7021-8 ####[facility]ITAL[facility]CL[facility] [id number] [place] [address] [place] Lymphocytes (Bld) [#/Vol] 1.37 10*3/uL Normal 1.00-4.00 [facility] Comment on above: Order Comment: Speci men Type: BLOOD SPECIMENOrdering Facility: [facility] Address: [address] [place] [address] Performed By: #### 5 7021-8 ####[facility] [id number] [place] [address] [place] Lymphocytes/100 WBC (Bld) 6.8 % Normal [facility] Comment on above: Order Comment: Speci men Type: BLOOD SPECIMENOrdering Facility: [facility] Address: [address] [place] [address] Performed By: #### 5 7021-8 ####[facility] [id number] [place] [address] [place] MCH (RBC) [Entitic mass] 31.9 pg Normal 26.0-34.0 [facility] Comment on above: Order Comment: Speci men Type: BLOOD SPECIMENOrdering Facility: [facility] Address: [address] [place] [address] Performed By: #### 5 7021-8 ####[facility] [id number] [place] [address] [place] MCHC (RBC) [Mass/Vol] 32.9 g/dL Normal 30.5-36.0 [place] Comment on above: Order Comment: Speci men Type: BLOOD SPECIMENOrdering Facility: [facility] Address: [address] [place] [address] Performed By: #### 5 7021-8 ####[facility]PITALNCLI [id number] [place] [address] [place] MCV (RBC) [Entitic vol] 96.9 fL Normal 80.0-100.0 [facility] Comment on above: Order Comment: Speci men Type: BLOOD SPECIMENOrdering Facility: [facility] Address: [address] [place] [address] Performed By: #### 5 7021-8 ####[facility] NHI [id number] [place] [address] [place] Monocytes (Bld) [#/Vol] 1.50 10*3/uL High <0.87 [facility] Comment on above: Order Comment: Speci men Type: BLOOD SPECIMENOrdering Facility: [facility] Address: [address] [place] [address] Performed By: #### 5 7021-8 ####[facility]A [id number] [place] [address] [place] Monocytes/100 WBC (Bld) 7.4 % Normal [facility] Comment on above: Order Comment: Speci men Type: BLOOD SPECIMENOrdering Facility: [facility] Address: [address] [place] [address] Performed By: #### 5 7021-8 ####[facility] [id number] [place] [address] [place] Neutrophils (Bld) [#/Vol] 17.04 10*3/uL High 1.45-7.50 [facility] Comment on above: Order Comment: Speci men Type: BLOOD SPECIMENOrdering Facility: [facility] Address: [address] [place] [address] Performed By: #### 5 7021-8 ####[facility]ALL[facility] [id number] [place] [address] [place] Neutrophils/100 WBC (Bld) 84.1 % Normal [facility] Comment on above: Order Comment: Speci men Type: BLOOD SPECIMENOrdering Facility: [facility] Address: [address] [place] [address] Performed By: #### 5 7021-8 ####[facility] MOIRINALIA [id number] [place] [address] [place] Nucleated RBC (Bld) [#/Vol] 10*3/uL Normal <0.01 [facility] Comment on above: Order Comment: Speci men Type: BLOOD SPECIMENOrdering Facility: [facility] Address: [address] [place] [address] Performed By: #### 5 7021-8 ####[facility] HOSPITALPABLOA [id number] [place] [address] [place] Nucleated RBC/100 WBC (Bld) [Ratio] 0.0 /100 WBC Normal [facility] Comment on above: Order Comment: Speci men Type: BLOOD SPECIMENOrdering Facility: [facility] Address: [address] [place] [address] Performed By: #### 5 7021-8 ####[facility]A [id number] [place] [address] [place] Platelet mean volume (Bld) [Entitic vol] 7.9 fL Low 9.0-12.7 [facility] Comment on above: Order Comment: Speci men Type: BLOOD SPECIMENOrdering Facility: [facility] Address: [address] [place] [address] Performed By: #### 5 7021-8 ####[facility]PITALANA MLIA [id number] [place] [address] [place] Platelets (Bld) [#/Vol] 575 10*3/uL High 150-400 [facility] Comment on above: Order Comment: Speci men Type: BLOOD SPECIMENOrdering Facility: [facility] Address: [address] [place] [address] Performed By: #### 5 7021-8 ####[facility]ITALNCLIA [id number] [place] [address] [place] RBC (Bld) [#/Vol] 3.89 10*6/uL Low 3.90-5.20 [facility] Comment on above: Order Comment: Speci men Type: BLOOD SPECIMENOrdering Facility: [facility] Address: [address] [place] [address] Performed By: #### 5 7021-8 ####[facility]IOR[facility] HEALTH SERVICESTaylor [id number] [place] [address] [place] WBC (Bld) [#/Vol] 20.25 10*3/uL High 3.70-11.00 [facility] Comment on above: Order Comment: Speci men Type: BLOOD SPECIMENOrdering Facility: [facility] Address: [address] [place] [address] Performed By: #### 5 7021-8 ####[facility] [id number] [address] [place] CNOVon 02-16-2025 CNOV Office Visit (INTMWS ) PATY RIOS ([id number]) 1940 F Date Time Provider Department 02/16/25 12:20 PM MARTHA FUNK INTMWS During your visit today, we recorded the following information about you: Pulse Respiration Blood pressure Weight 73/minute 16/minute 104/60 43.5 kg Martha Funk APRN.ROUND UP RING HAND 02/16/2025 7:00 PM Signed CC: Patient presents with: Recheck: ER follow up, no appetite, fatigue HPI Paty Rios is a 84 year old female who presents today for ER follow up. Recording using TUBE software for draft documentation of the visit was discussed with the patient/authorized billing customer service representative; all questions welcomed and answered. Patient/authorized billing customer service representative agreed to proceed Colitis: - Recent ER visits on 03/13 and 03/17 for colitis and SALINAS. - Initial ER visit included CT scan and blood work indicating possible colitis; started on levofloxacin and metronidazole and given IVF in ER - Took antibiotics for 2-3 days; experienced severe emesis and discontinued use. - No further emesis since stopping antibiotics. - Denies abdominal pain, fever, chills, or rashes. - Bowel movements returning to normal; last bowel movement this morning was more formed and brown. - No longer taking Imodium. - Decreased appetite, but reports slight improvement; able to eat small amounts of food. - Consuming watermelon, mixed fruits, and small amounts of soup and crackers. - Avoids carbonated drinks due to discomfort; prefers orange juice and lemonade. - Denies liking milk products. Still feeling weak and very fatigued. Denies any fever, chills, chest pain, Shortness of Breath, edema, palpitations, difficulty/pain urinating, or dizziness. White count in ER was elevated at 20 and platelets greater then 700. CT of the abdomen in the ER showed proctocolitis and mildly dilated bile ducts. Hypothyroidism: - Currently taking levothyroxine; able to break tablets in half if needed. - Last TSH and T4 indicating levothyroxine dose needing to be lowered. REVIEW OF SYSTEMS See HPI PAST MEDICAL [...] Sodium], Grass Pollen, and Valtrex [Valacyclovir] MEDICATIONS levothyroxine (LEVOXYL) 100 mcg tablet Take 1 tablet by mouth once daily. Except take only 1/2 tablet on Sundays meloxicam (MOBIC) 15 mg tablet Take 1 tablet by mouth once daily. for pain. Take with food. simvastatin (ZOCOR) 10 mg tablet Take 1 tablet by mouth daily at bedtime. atenolol (TENORMIN) 50 mg tablet Take 1 [...] Daughter Thyroid Daughter Hypertension Son Hypertension Son SOCIAL HISTORY[1] PHYSICAL EXAM BP 104/60 Pulse 73 Resp 16 Wt 43.5 kg (96 lb) SpO2 97% BMI 19.35 kg/m? General Appearance: well appearing, in no acute distress, alert Eyes: conjunctiva pink and moist, no icterus, sclera white, non-injected Lungs: Lungs clear to auscultation. No wheezing, rhonchi, rales. Heart: RRR without murmur, gallop, or rubs. No ectopy Abdomen: Abdomen soft, non-tender. Bowel sounds normal. No masses, organomegaly Health maintenance reviewed with patient: Anxiety Screening Never done DTaP,Tdap,Td Vaccine(1 - Tdap) due on 04/09/2006 RSV Vaccine(1 - 1-dose 75+ series) Never done Influenza Vaccine(1) due on 03/07/2025 Diabetes Screening due on 02/10/2028 Bone Density Screening Completed Medicare Advantage Annual Wellness Visit Completed Shingrix Vaccine Completed Pneumococcal Vaccine: 50+ Completed Advance Directive Discussion Discontinued DATA REVIEW (more content not included)... Normal [facility] metabolic 2000 panelOrdered By: Betsey Mooney on 02-16-2025 Albumin [Mass/Vol] 2.9 g/dL Low 3.9 - 4.9 g/dL [facility] ALP [Catalytic activity/Vol] 90 U/L 34 - 123 U/L [facility] ALT [Catalytic activity/Vol] 7 U/L 7 - 38 U/L [facility] Anion gap [Moles/Vol] 9 mmol/L 8 - 15 mmol/L [facility] AST [Catalytic activity/Vol] 16 U/L 13 - 35 U/L [facility] Bilirubin [Mass/Vol] 0.4 mg/dL 0.2 - 1 .3 mg/dL [facility] Calcium [Mass/Vol] 9.1 mg/dL 8.5 - 10. 2 mg/dL [facility] Chloride [Moles/Vol] 101 mmol/L 98 - 10 7 mmol/L [facility] CO2 [Moles/Vol] 26 mmol/L 22 - 30 mmol/L [facility] Creatinine [Mass/Vol] 0.96 mg/dL 0.58 - 0.96 mg/dL [facility] GFR/1.73 sq M.predicted among non-blacks MDRD (S/P/Bld) [Vol rate/Area] 58 mL/min/{1.73_m2} Low - PINF [facility] Comment on above: Estimated Glomerular Filtration Rate (eGFR) is calculated using the 2020 CKD-EPI creatinine equation. This equation utilizes serum creatinine, sex, and age as parameters. The creatinine assay has traceable calibration to isotope dilution-mass spectrometry. Refer to KDIGO guidelines for clinical interpretation. In patients with unstable renal function, e.g. those with acute kidney injury, the eGFR may not accurately reflect actual GFR. Glucose [Mass/Vol] 132 mg/dL High 74 - 99 mg/dL [facility] Comment on above: The [place] Diabete s Association (ADA) provides guidance for cutoff values [...] Standards of Medical Care in Diabetes 2016, [place] Diabetes Association. Diabetes Care. 2016.39(Suppl 1). Interpretation and review of laboratory results Abnormal [facility] Potassium [Moles/Vol] 3.5 mmol/L Low 3.7 - 5.1 mmol/L [facility] Protein [Mass/Vol] 6.7 g/dL 6.3 - 8.0 g/dL [facility] Sodium [Moles/Vol] 136 mmol/L 136 - 144 mmol/L [facility] Urea nitrogen [Mass/Vol] 34 mg/dL High 7 - 21 mg/d L [facility] metabolic 2000 panelon 02-16-2025 Albumin [Mass/Vol] 2.9 g/dL Low 3.9-4.9 [facility] Comment on above: Order Comment: Speci men Type: BLOOD SPECIMEN [facility] Address: [address] [place] [address] Performed By: #### 5 7021-8 #### [facility] CLIA [id number] [address] [place] [address] [place] ALP [Catalytic activity/Vol] 90 U/L Normal 34-123 [facility] Comment on above: Order Comment: Speci men Type: BLOOD SPECIMEN [facility] Address: [address] [place] [address] Performed By: #### 5 7021-8 #### [facility] CLIA [id number] [address] [place] [address] [place] ALT [Catalytic activity/Vol] 7 U/L Normal 7-38 [facility] Comment on above: Order Comment: Speci men Type: BLOOD SPECIMEN [facility] Address: [address] [place] [address] Performed By: #### 5 7021-8 #### [facility] CLIA [id number] [address] [place] [address] [place] Anion gap [Moles/Vol] 9 mmol/L Normal 8-15 [place] Comment on above: Order Comment: Speci men Type: BLOOD SPECIMEN [facility] Address: [address] [place] [address] Performed By: #### 5 7021-8 #### [facility] CLIA [id number] [address] [place] [address] [place] AST [Catalytic activity/Vol] 16 U/L Normal 13-35 [facility] Comment on above: Order Comment: Speci men Type: BLOOD SPECIMEN [facility] Address: [address] [place] [address] Performed By: #### 5 7021-8 #### [facility] CLIA [id number] [address] [place] [address] [place] Bilirubin [Mass/Vol] 0.4 mg/dL Normal 0.2-1.3 [facility] Comment on above: Order Comment: Speci men Type: BLOOD SPECIMEN [facility] Address: [address] [place] [address] Performed By: #### 5 7021-8 #### [facility] CLIA [id number] [address] [place] [address] [place] Calcium [Mass/Vol] 9.1 mg/dL Normal 8.5-10.2 [facility] Comment on above: Order Comment: Speci men Type: BLOOD SPECIMEN [facility] Address: [address] [place] [address] Performed By: #### 5 7021-8 #### [facility] CLIA [id number] [address] [place] [address] [place] Chloride [Moles/Vol] 101 mmol/L Normal 98-107 [facility] Comment on above: Order Comment: Speci men Type: BLOOD SPECIMEN [facility] Address: [address] [place] [address] Performed By: #### 5 7021-8 #### [facility] CLIA [id number] [address] [place] [address] [place] CO2 [Moles/Vol] 26 mmol/L Normal 22-30 [facility] Comment on above: Order Comment: Speci men Type: BLOOD SPECIMEN [facility] Address: [address] [place] [address] Performed By: #### 5 7021-8 #### [facility] CLIA [id number] [address] [place] [address] [place] Creatinine [Mass/Vol] 0.96 mg/dL Normal 0.58-0.96 [place] Comment on above: Order Comment: Speci men Type: BLOOD SPECIMEN [facility] Address: [address] [place] [address] Performed By: #### 5 7021-8 #### [facility] CLIA [id number] [address] [place] [address] [place] eGFRcr SerPlBld CKD-EPI 2020 58 mL/min/1.73m??? Low >=60 [facility] Comment on above: Order Comment: Speci men Type: BLOOD SPECIMEN [facility] Address: [address] [place] [address] Result Comment: Briana mated Glomerular Filtration Rate [...] accurately reflect actual GFR. Performed By: #### 5 7021-8 #### [facility] CLIA [id number] [address] [place] [address] [place] Glucose [Mass/Vol] 132 mg/dL High 74-99 [facility] Comment on above: Order Comment: Speci men Type: BLOOD SPECIMEN [facility] Address: [address] [place] [address] Result Comment: The [place] Diabetes Association (ADA) provides guidance for cutoff [...] Standards of Medical Care in Diabetes 2016, [place] Diabetes Association. Diabetes Care. 2016.39(Suppl 1). Performed By: #### 5 7021-8 #### [facility] CLIA [id number] [address] [place] [address] [place] Potassium [Moles/Vol] 3.5 mmol/L Low 3.7-5.1 [place] Comment on above: Order Comment: Speci men Type: BLOOD SPECIMEN [facility] Address: [address] [place] [address] Performed By: #### 5 7021-8 #### [facility] CLIA [id number] [address] [place] [address] [place] Protein [Mass/Vol] 6.7 g/dL Normal 6.3-8.0 [facility] Comment on above: Order Comment: Speci men Type: BLOOD SPECIMEN [facility] Address: [address] [place] [address] Performed By: #### 5 7021-8 #### [facility] CLIA [id number] [address] [place] [address] [place] Sodium [Moles/Vol] 136 mmol/L Normal 136-144 [facility] Comment on above: Order Comment: Speci men Type: BLOOD SPECIMEN [facility] Address: [address] [place] [address] Performed By: #### 5 7021-8 #### [facility] CLIA [id number] [address] [place] [address] [place] Urea nitrogen [Mass/Vol] 34 mg/dL High 7-21 [facility] Comment on above: Order Comment: Speci men Type: BLOOD SPECIMEN [facility] Address: [address] [place] [address] Performed By: #### 5 7021-8 #### [facility] CLIA [id number] [address] [place] [address] [place] UA DIP, URINE (POC)on 2024 BILIRUBIN UA (POCT) Negative Negative [facility] CLARITY UA (POCT) Clear [facility] COLOR UA (POCT) Yellow [facility] GLUCOSE UA (POCT) Negative Negative mg/dL [facility] Hemoglobin Ql (U) Trace-lysed Abnormal Negative [facility] Interpretation and review of laboratory results Abnormal [facility] KETONE UA (POCT) Negative Negative mg/dL [facility] LEUKOCYTES UA (POCT) Negative Negative [facility] NITRITE UA (POCT) Negative Negative [facility] PH UA (POCT) 6.0 4.5 - 8.0 [facility] Protein Ql (U) Trace Abnormal Negative mg/dL [facility] SPECIFIC GRAVITY UA (POCT) 1.020 1.005 - 1.030 [facility] UROBILINOGEN UA (POCT) 0.2 Yokasta l E.U./dL [facility] Location:[address], [address] [place] [address] POINT OF CARE [facility] Urinalysis complete panel (U )on 02-16-2025 Bacteria LM.HPF (Urine sed) [#/Area] Negative Normal Negative [facility] Comment on above: Order Comment: Speci men Type: BLOOD SPECIMEN [facility] Address: [address] [place] [address] Performed By: #### 5 7021-8 #### [facility] CLIA [id number] [address] [place] [address] [place] Bilirubin Ql (U) Negative Normal Negative [facility] Comment on above: Order Comment: Speci men Type: BLOOD SPECIMEN [facility] Address: [address] [place] [address] Performed By: #### 5 7021-8 #### [facility] CLIA [id number] [address] [place] [address] [place] Clarity (Unsp spec) Clear Normal Clear [facility] Comment on above: Order Comment: Speci men Type: BLOOD SPECIMEN [facility] Address: [address] [place] [address] Performed By: #### 5 7021-8 #### [facility] CLIA [id number] [address] [place] [address] [place] [facility] Color (U) Yellow Normal Yellow [facility] Comment on above: Order Comment: Speci men Type: BLOOD SPECIMEN [facility] Address: [address] [place] [address] Performed By: #### 5 7021-8 #### [facility] CLIA [id number] [address] [place] [address] [place] Epithelial cells LM.HPF (Urine sed) [#/Area] None Seen Normal [facility] Comment on above: Order Comment: Speci men Type: BLOOD SPECIMEN [facility] Address: [address] [place] [address] Performed By: #### 5 7021-8 #### [facility] CLIA [id number] [address] [place], [place] [id number] [place] Glucose Test strip (U) [Mass/Vol] Negative Normal Negative [facility] Comment on above: Order Comment: Speci men Type: BLOOD SPECIMEN [facility] Address: [address] [place] [address] Performed By: #### 5 7021-8 #### [facility] CLIA [id number] [address] [place], [place] [id number] [place] Hemoglobin Ql (U) Negative Normal Negative [facility] Comment on above: Order Comment: Speci men Type: BLOOD SPECIMEN [facility] Address: [address] [place] [address] Performed By: #### 5 7021-8 #### [facility] CLIA [id number] [address] [place] [address] [place] Hyaline casts (Urine sed) [#/Area] 1-3 /LPF Abnormal 0 /LPF [facility] Comment on above: Order Comment: Speci men Type: BLOOD SPECIMEN [facility] Address: [address] [place] [address] Performed By: #### 5 7021-8 #### [facility] CLIA [id number] [address] [place] [address] [place] Ketones Ql (U) Negative Normal Negative [facility] Comment on above: Order Comment: Speci men Type: BLOOD SPECIMEN [facility] Address: [address] [place] [address] Performed By: #### 5 7021-8 #### [facility] CLIA [id number] [address] [place] [address] [place] Leukocyte esterase Test strip Ql (U) Negative Normal Negative [facility] Comment on above: Order Comment: Speci men Type: BLOOD SPECIMEN [facility] Address: [address] [place] [address] Performed By: #### 5 7021-8 #### [facility] CLIA [id number] [address] [place] [address] [place] Nitrite Ql (U) Negative Normal Negative [facility] Comment on above: Order Comment: Speci men Type: BLOOD SPECIMEN [facility] Address: [address] [place] [address] Performed By: #### 5 7021-8 #### [facility] CLIA [id number] [address] [place] [place] [address] [place] pH (U) 5.5 [pH] Normal 5.0-8.0 [facility] Comment on above: Order Comment: Speci men Type: BLOOD SPECIMEN Ordering Facility: [facility] Address: [address] [place] [address] Performed By: #### 5 7021-8 #### [facility] CLIA [id number] [address] [place] [address] [place] Protein (U) [Mass/Vol] Trace Abnormal Negative Cl [facility] Comment on above: Order Comment: Speci men Type: BLOOD SPECIMEN Ordering Facility: [facility] Address: [address] [place] [address] Performed By: #### 5 7021-8 #### [facility] CLIA [id number] [address] [place] [address] [place] RBC LM.HPF (Urine sed) [#/Area] 3-5 /HPF Abnormal 0-2 /HPF [facility] Comment on above: Order Comment: Speci men Type: BLOOD SPECIMEN Ordering Facility: [facility] Address: [address] [place] [address] Performed By: #### 5 7021-8 #### [facility] CLIA [id number] [address] [place] [address] [place] Specific gravity (U) [Rel density] 1.024 Normal 1.005-1.030 [facility] Comment on above: Order Comment: Speci men Type: BLOOD SPECIMEN Ordering Facility: [facility] Address: [address] [place] [address] Performed By: #### 5 7021-8 #### [facility] CLIA [id number] [address] [place] [address] [place] Urobilinogen Ql (U) 1.0 EU/dL Normal 0.2-1.0 EU/dL [facility] Comment on above: Order Comment: Speci men Type: BLOOD SPECIMEN Ordering Facility: [facility] Address: [address] [place] [address] Performed By: #### 5 7021-8 #### [facility] CLIA [id number] [address] [place] [address] [place] WBC LM.HPF (Urine sed) [#/Area] 0-5 /HPF Normal 0-5 /HPF [facility] Comment on above: Order Comment: Speci men Type: BLOOD SPECIMEN Ordering Facility: [facility] Address: [address] [place] [address] Performed By: #### 5 7021-8 #### [facility] CLIA [id number] [address] [place] [address] [place] Absolute lymphocyte countOrd ered By: Suhail Delacruz on 02-14-2025 Lymphocytes Auto (Unsp spec) [#/Vol] 1.05 10*3/uL 0.83-4.51 [facility] Absolute neutrophil countOrd ered By: Suhail Delacruz on 02-14-2025 Neutrophils (Bld) [#/Vol] 17.2 10*3/uL High 2.0-7.7 [facility] Anion gap in Serum or Plasma Ordered By: Suhail Delacruz on 02-14-2025 Anion gap [Moles/Vol] 21 mmol/L High 5-15 [facility] Automated lymphocyte count a s percentage of total leukocytesOrdered By: Suhail Delacruz on 02-14-2025 Lymphocytes/100 WBC Auto (Unsp spec) 5.3 % Low 19-41 [facility] BUN/creatinine ratioOrdered By: Suhailpatsy Delacruz on 02-14-2025 Urea nitrogen/Creatinine [Mass ratio] 29.8 mg/mg High 10-20 [facility] Basic Metabolic Profile (BMP )on 02-14-2025 BUN/CRE 29.8 RATIO High 04-25 [facility] Comment on above: Performed By: #### L 500.2500, L100.0100 #### [facility] [address] [place], [address] Calcium [Mass/Vol] 9.5 mg/dL Normal 7.6-11.0 [facility] Comment on above: Performed By: #### L 500.2500, L100.0100 #### [facility] [address] [place], [address] Chloride [Moles/Vol] 98 mmol/L Normal 98-108 [facility] Comment on above: Performed By: #### L 500.2500, L100.0100 #### [facility] [address] [place], [address] CO2 [Moles/Vol] 20.7 mmol/L Low 21.0-32.0 [facility] Comment on above: Performed By: #### L 500.2500, L100.0100 #### [facility] [address] [place], [address] Creatinine [Mass/Vol] 1.08 mg/dL Normal 0.70-1.20 [facility] Comment on above: Performed By: #### L 500.2500, L100.0100 #### [facility] [address] [place], [address] ECRCL 25.26 ml/min Low 50-250 [facility] Comment on above: Performed By: #### L 500.2500, L100.0100 #### [facility] [address] [place], [address] GAP 21 High 5-15 [facility] Comment on above: Performed By: #### L 500.2500, L100.0100 #### [facility] [address] [place], [address] GFR/1.73 sq M.predicted among non-blacks MDRD (S/P/Bld) [Vol rate/Area] 50 mL/min/{1.73_m2} Low >60 [facility] Comment on above: Result Comment: mL/m in/1.73m2 CKD-EPI Creatinine Equation (2020) Performed By: #### L 500.2500, L100.0100 #### [facility] [address] [place], [address] Glucose [Mass/Vol] 153 mg/dL High 70-99 [facility] Comment on above: Performed By: #### L 500.2500, L100.0100 #### [facility] [address] [place], [address] Potassium [Moles/Vol] 3.4 mmol/L Normal 3.3-5.1 [facility] Comment on above: Performed By: #### L 500.2500, L100.0100 #### [facility] [address] [place], [address] Sodium [Moles/Vol] 140 mmol/L Normal 133-145 [facility] Comment on above: Performed By: #### L 500.2500, L100.0100 #### [facility] [address] [place], [address] Urea nitrogen [Mass/Vol] 32 mg/dL High 4-19 [facility] Comment on above: Performed By: #### L 500.2500, L100.0100 #### [facility] [address] [place], [address] Basophil percentageOrdered B y: Suhail Delacruz on 02-14-2025 Basophils/100 WBC (Bld) 0.4 % 0-1 [facility] CBC W/Diff, Automatedon 02-04 Absolute Lymph 1.05 X10 3/uL Normal 0.83-4.51 [facility] Comment on above: Performed By: #### L 500.2500, L100.0100 #### [facility] [address] [place], [address] Absolute Neut 17.2 X10 3/uL High 2.0-7.7 [facility] Comment on above: Performed By: #### L 500.2500, L100.0100 #### [facility] [address] [place], [address] Basophils/100 WBC (Bld) 0.4 % Normal 0-1 [facility] Comment on above: Performed By: #### L 500.2500, L100.0100 #### [facility] [address] [place], [address] Eosinophils/100 WBC (Bld) 0.1 % Normal 0-5 [facility] Comment on above: Performed By: #### L 500.2500, L100.0100 #### [facility] [address] [place], [address] Erythrocyte distribution width (RBC) [Ratio] 13.9 % Normal 11.6-14.6 [facility] Comment on above: Performed By: #### L 500.2500, L100.0100 #### [facility] [address] [place], [address] Hematocrit (Bld) [Volume fraction] 40.2 % Normal 37-47 [facility] Comment on above: Performed By: #### L 500.2500, L100.0100 #### [facility] [address] [place], [address] Hemoglobin (Bld) [Mass/Vol] 13.3 g/dL Normal 12.0-15.0 [facility] Comment on above: Performed By: #### L 500.2500, L100.0100 #### [facility] [address] [place], [address] IG% 0.900 Normal 0.0-0.9 [facility] Comment on above: Result Comment: IG% - Immature Granulocytes (promyelocytes, myelocytes and metamyelocytes) > 1% indicates that a LEFT SHIFT is Present. Performed By: #### L 500.2500, L100.0100 #### [facility] [address] [place], [address] Lymphocytes/100 WBC (Bld) 5.3 % Low 19-41 [facility] Comment on above: Performed By: #### L 500.2500, L100.0100 #### [facility] [address] [place], [address] MCH (RBC) [Entitic mass] 32.0 pg Normal 27.0-32.0 [facility] Comment on above: Performed By: #### L 500.2500, L100.0100 #### [facility] [address] [place], [address] MCHC (RBC) [Mass/Vol] 33.1 g/dL Normal 32-36 [facility] Comment on above: Performed By: #### L 500.2500, L100.0100 #### [facility] [address] [place], [address] MCV (RBC) [Entitic vol] 96.6 fL Normal 81-99 [facility] Comment on above: Performed By: #### L 500.2500, L100.0100 #### [facility] [address] [place], [address] Monocytes/100 WBC (Bld) 7.3 % Normal 0-10 [facility] Comment on above: Performed By: #### L 500.2500, L100.0100 #### [facility] [address] [place], [address] Neutrophils/100 WBC (Bld) 86.0 % High 47-70 [facility] Comment on above: Performed By: #### L 500.2500, L100.0100 #### [facility] [address] [place], [address] Nucleated RBC (Bld) [#/Vol] 0 10*3/uL Normal 0-5 [facility] Comment on above: Performed By: #### L 500.2500, L100.0100 #### [facility] [address] [place], [address] Platelet mean volume (Bld) [Entitic vol] 7.7 fL Normal 6.2-12.0 [facility] Comment on above: Performed By: #### L 500.2500, L100.0100 #### [facility] [address] [place], [address] Platelets (Bld) [#/Vol] 701 10*3/uL High 150-450 [facility] Comment on above: Performed By: #### L 500.2500, L100.0100 #### [facility] [address] [place], [address] RBC (Bld) [#/Vol] 4.16 10*6/uL Low 4.2-5.4 [facility] Comment on above: Performed By: #### L 500.2500, L100.0100 #### [facility] [address] [place], [address] RDW SD 49.2 fl High 35.1-43.9 [facility] Comment on above: Performed By: #### L 500.2500, L100.0100 #### [facility] [address] [place], [address] WBC (Bld) [#/Vol] 20.0 10*3/uL High 4.4-11.0 [facility] Comment on above: Performed By: #### L 500.2500, L100.0100 #### [facility] [address] [place], [address] Carbon dioxide, total [Moles /volume] in Central venous bloodOrdered By: Suhail Delacruz on 02-14-2025 CO2 [Moles/Vol] 20.7 mmol/L Low 21.0-32.0 [facility] Chloride assayOrdered By: Gato Delacruz on 02-14-2025 Chloride [Moles/Vol] 98 mmol/L 98-108 [facility] Emergency Department Summary on 02-14-2025 Emergency Department Summary [facility] Medical Records Department [address] [place] [address] Emergency Department Summary 02/14/25 MR#: [id number] Acct: [id number] Name: PATY RIOS Rep #: [id number] : 1940 84 From: Suhail Delacruz MD PCP: Dr. Russ Barone MD Status:REG ER Location: ED HPI History of Present [...] white count of 19,000 with slight shift. Electrolyte panel is remarkable for BUN/creatinine of 29 and 1.2. Her BUN to creatinine ratio was 24:1. CT reveals diffusely thickened rectosigmoid colon with adjacent inflammatory changes. Patient presents because of poor appetite, [...] and thirst. Prior similar symptoms: Yes Recent Illness/Hospitalizatio n: No PFSH PFS Medical History Osteoarthritis Hyperglycemia Hypertension Hypothyroidism High blood cholesterol Colitis Home Medications ???Medication ???Instructions ???Recorded ???Last Taken ???Type levofloxacin 750 mg tablet 750 mg PO DAILY 7 days #7 tabs 01/2802/12/25 Rx metronidazole 500 mg tablet 500 mg PO BID 7 days #14 tabs 01/2802/12/25 Rx aspirin 81 mg tablet 81 mg PO DAILY 02/14/25 02/14/25 H istory atenolol 50 mg tablet 50 mg PO DAILY 02/14/25 02/14/25 H istory hydrochlorothiazide 12.5 mg capsule 12.5 mg PO DAILY 02/14/2502/14 History levothyroxine 100 mcg tablet 100 mcg PO DAILY 02/14/25 02/14/25 History losartan 25 mg tablet 25 mg PO DAILY 02/14/25 02/14/25 H istory meloxicam 15 mg tablet 15 mg PO DAILY pain 02/14/2502/14 History ondansetron 4 mg disintegrating 4 mg PO Q8H PRN PRN Nausea #10 tab s 02/14/25 Unknown Rx tablet simvastatin 10 mg tablet 10 mg PO QHS 02/14/25 02/13/25 His tory Allergy/AdvReac Type Severity Reaction Status Date / [...] Reports systems reviewed and no addt'l complaints, except as documented EXAM Physical Exam Const Vital Signs: 02/14/25 10:02 02/14/25 10:19 02/14/25 12:02 Temperature 96.3 F L Temperature Source Temporal Pulse Rate 61 66 Pulse Rate [Lying] Pulse Rate [Sitting (for 1 minute prior to obtaining)] Pulse Rate [Standing (for 1 minute prior to o (more content not included)... Normal [facility] Eosinophil percentageOrdered By: Suhail Delacruz on 02-14-2025 Eosinophils/100 WBC (Bld) 0.1 % 0-5 [facility] Erythrocyte distribution wid th ratioOrdered By: Suhail Delacruz on 02-14-2025 Erythrocyte distribution width (RBC) [Ratio] 13.9 % 11.6-14.6 [facility] Erythrocyte distribution wid th standard deviationOrdered By: Suhailpatsy Delacruz on 02-14-2025 Erythrocyte distribution width (RBC) [Ratio] 49.2 fl High 35.1-43.9 [facility] Glomerular filtration rate ( GFR) estimation/1.73 sq m using serum, plasma, or whole bOrdered By: Suhail Delacruz on 02-14-2025 GFR/1.73 sq M.predicted among non-blacks MDRD (S/P/Bld) [Vol rate/Area] 50 mL/min/{1.73_m2} Low >60 [facility] Comment on above: mL/min/1.73m2 CKD-EP I Creatinine Equation (2020) Hematocrit Auto (Bld) [Volum e fraction]Ordered By: Suhail Delacruz on 02-14-2025 Hematocrit (Bld) [Volume fraction] 40.2 % 37-47 [facility] Hemoglobin measurementOrdere d By: Suhail Delacruz on 02-14-2025 Hemoglobin (Bld) [Mass/Vol] 13.3 g/dL 12.0-15.0 [facility] Immature granulocytes/100 WB C Auto (Bld)Ordered By: Suhail Delacruz on 02-14-2025 Immature granulocytes/100 WBC (Bld) 0.900 % 0.0-0.9 [facility] Comment on above: IG% - Immature Granu locytes (promyelocytes, myelocytes and metamyelocytes) > 1% indicates that a LEFT SHIFT is Present. MCV (mean corpuscular volume ) determinationOrdered By: Suhail Delacruz on 02-14-2025 MCV (RBC) [Entitic vol] 96.6 fL 81-99 [facility] Mean corpuscular hemoglobin (MCH) determinationOrdered By: Suhailpatsy Delacruz on 02-14-2025 MCH (RBC) [Entitic mass] 32.0 pg 27.0-32.0 [facility] Mean corpuscular hemoglobin concentration (MCHC) determinationOrdered By: Suhail Delacruz on 02-14-2025 MCHC (RBC) [Mass/Vol] 33.1 g/dL 32-36 [facility] Mean platelet volume determi nationOrdered By: Suhail Delacruz on 02-14-2025 Platelet mean volume (Bld) [Entitic vol] 7.7 fL 6.2-12.0 [facility] Monocyte percentageOrdered B y: Suhail Delacruz on 02-14-2025 Monocytes/100 WBC (Bld) 7.3 % 0-10 [facility] Neutrophil percentageOrdered By: Suhail Delacruz on 02-14-2025 Neutrophils/100 WBC (Bld) 86.0 % High 47-70 [facility] Nucleated red blood cell per centageOrdered By: Suhail Delacruz on 02-14-2025 Nucleated RBC/100 WBC (Bld) [Ratio] 0 % 0-5 [facility] Platelet countOrdered By: [facility] Jayme on 02-14-2025 Platelets (Bld) [#/Vol] 701 10*3/uL High 150-450 [facility] Potassium measurement (mass/ volume)Ordered By: Suhail Delacruz on 02-14-2025 Potassium (Unsp spec) [Mass/Vol] 3.4 mmol/L 3.3-5.1 [facility] RBC Auto (Bld) [#/Vol]Ordere d By: Suhail Delacruz on 02-14-2025 RBC (Bld) [#/Vol] 4.16 10*6/uL Low 4.2-5.4 [facility] Serum creatinine measurement (mass/volume)Ordered By: Suhail Delacruz on 02-14-2025 Creatinine [Mass/Vol] 1.08 mg/dL 0.70-1.20 [facility] Serum glucose measurement (m ass/volume)Ordered By: Suhail Delacruz on 02-14-2025 Glucose [Mass/Vol] 153 mg/dL High 70-99 [facility] Serum or plasma calcium jaki urement (mass/volume)Ordered By: Shuail Delacruz on 02-14-2025 Calcium [Mass/Vol] 9.5 mg/dL 7.6-11.0 [facility] Serum or plasma urea nitroge n measurement (mass/volume)Ordered By: Suhailpatsy Priesto on 02-14-2025 Urea nitrogen [Mass/Vol] 32 mg/dL High 4-19 [facility] S[facility]Or[facility]-14-20[facility] Sodium [Moles/Vol] 140 mmol/L 133-145 [facility] White blood cell (WBC) count Ordered By: [facility] on 02-14-2025 WBC (Bld) [#/Vol] 20.0 10*3/uL High 4.4-11.0 [facility] Abdomen/Pelvis W IV Cont ONL Yon 02-10-2025 Abdomen/Pelvis W IV Cont ONLY [facility] [address] [place] [id number] Abdomen/Pelvis W IV Cont ONLY MR#: [id number] Acct: [id number] Name: PATY RIOS Rep #: [id number] : 1940 F 84 From: Erna Rubio MD PCP: Dr. Russ Barone MD Status: [facility] ER Study: Abdomen/Pelvis W IV Cont ONLY Date of Exam: Exam# [id number] Ordering Dr: Elvira Campbell PROCEDURE: ABDOMEN/PELVIS W [...] of the ampulla is possible. Reading Location: [id number] CC: Dr. Russ Barone MD; ARIANA Leiva Reporter: Signed Normal [facility] Absolute lymphocyte countOrd ered By: Elvira Campbell on 02-10-2025 Lymphocytes Auto (Unsp spec) [#/Vol] 1.16 10*3/uL 0.83-4.51 [facility] Absolute neutrophil countOrd ered By: Elvira Campbell on 02-10-2025 Neutrophils (Bld) [#/Vol] 15.6 10*3/uL High 2.0-7.7 [facility] Anion gap in Serum or Plasma Ordered By: Elvira Campbell on 02-10-2025 Anion gap [Moles/Vol] 15 mmol/L 5-15 [facility] Automated lymphocyte count a s percentage of total leukocytesOrdered By: Elvira Campbell on 02-10-2025 Lymphocytes/100 WBC Auto (Unsp spec) 6.1 % Low 19-41 [facility] BUN/creatinine ratioOrdered By: Elvira Campbell on 02-10-2025 Urea nitrogen/Creatinine [Mass ratio] 24.1 mg/mg High 10-20 [facility] Basic Metabolic Profile (BMP )on 02-10-2025 BUN/CRE 24.1 RATIO High 10-20 [facility] Comment on above: Performed By: #### L 100.0100, L500.2500, L503.6005 #### [facility] [address] [place], [address] Calcium [Mass/Vol] 9.2 mg/dL Normal 7.6-11.0 [facility] Comment on above: Performed By: #### L 100.0100, L500.2500, L503.6005 #### [facility] [address] [place], [address] Chloride [Moles/Vol] 96 mmol/L Low 98-108 [facility] Comment on above: Performed By: #### L 100.0100, L500.2500, L503.6005 #### [facility] [address] [place], [address] CO2 [Moles/Vol] 24.7 mmol/L Normal 21.0-32.0 [facility] Comment on above: Performed By: #### L 100.0100, L500.2500, L503.6005 #### [facility] [address] [place], [address] Creatinine [Mass/Vol] 1.20 mg/dL Normal 0.70-1.20 [facility] Comment on above: Performed By: #### L 100.0100, L500.2500, L503.6005 #### [facility] [address] [place], [address] ECRCL 23.62 ml/min Low 50-250 [facility] Comment on above: Performed By: #### L 100.0100, L500.2500, L503.6005 #### [facility] [address] [place], [address] GAP 15 Normal 5-15 [facility] Comment on above: Performed By: #### L 100.0100, L500.2500, L503.6005 #### [facility] [address] [place], [address] GFR/1.73 sq M.predicted among non-blacks MDRD (S/P/Bld) [Vol rate/Area] 44 mL/min/{1.73_m2} Low >60 [facility] Comment on above: Result Comment: mL/m in/1.73m2 CKD-EPI Creatinine Equation (2020) Performed By: #### L 100.0100, L500.2500, L503.6005 #### [facility] [address] [place], [address] Glucose [Mass/Vol] 113 mg/dL High 70-99 [facility] Comment on above: Performed By: #### L 100.0100, L500.2500, L503.6005 #### [facility] [address] [place], [address] Potassium [Moles/Vol] 3.3 mmol/L Normal 3.3-5.1 [facility] Comment on above: Performed By: #### L 100.0100, L500.2500, L503.6005 #### [facility] [address] [place], [address] Sodium [Moles/Vol] 136 mmol/L Normal 133-145 [facility] Comment on above: Performed By: #### L 100.0100, L500.2500, L503.6005 #### [facility] [address] [place], [address] Urea nitrogen [Mass/Vol] 29 mg/dL High 4-19 [facility] Comment on above: Performed By: #### L 100.0100, L500.2500, L503.6005 #### [facility] [address] [place], [address] Basophil percentageOrdered B y: Elvira Campbell on 02-10-2025 Basophils/100 WBC (Bld) 0.6 % 0-1 [facility] Bilirubin Test strip Ql (U)O rdered By: Elvira Campbell on 02-10-2025 Bilirubin Ql (U) Negative Negative [facility] Blood manual differential co mment interpretation (narrative result)Ordered By: Elvira Campbell on 02-10-2025 Manual differential comment Gregory (Bld) [Interp] SCANNED [facility] CBC W/Diff, Automatedon 08-0 PLT EST MOD INC Normal ADEQ [facility] Comment on above: Performed By: #### L 100.0100, L500.2500, L503.6005 #### [facility] [address] [place], [address] SMEAR COMMENT SCANNED Normal [facility] Comment on above: Performed By: #### L 100.0100, L500.2500, L503.6005 #### [facility] [address] [place], [address] Carbon dioxide, total [Moles /volume] in Central venous bloodOrdered By: Elvira Campbell on 02-10-2025 CO2 [Moles/Vol] 24.7 mmol/L 21.0-32.0 [facility] Chloride assayOrdered By: Nika Campbell on 02-10-2025 Chloride [Moles/Vol] 96 mmol/L Low 98-108 [facility] Emergency Department Summary on 02-10-2025 Emergency Department Summary [facility] Medical Records Department [address] [place] [address] Emergency Department Summary 02/10/25 MR#: [id number] Acct: [id number] Name: PATY RIOS Rep #: [id number] : 1940 84 From: [address] PCP: [...] go to the ED for fluids. PFSH PFS Home Medications ???Medication ???Instructions ???Recorded ???Last Taken [...] 82.0 H Lymph % (Auto) 6.1 L [place] % (Auto) 10.4 H Eos % (Auto) [...] Clinical Impression(s) (more content not included)... Normal [facility] Eosinophil percentageOrdered By: Elvira Campbell on 02-10-2025 Eosinophils/100 WBC (Bld) 0.2 % 0-5 [facility] Erythrocyte distribution wid th ratioOrdered By: Elvira Campbell on 02-10-2025 Erythrocyte distribution width (RBC) [Ratio] 13.1 % 11.6-14.6 [facility] Erythrocyte distribution wid th standard deviationOrdered By: Elvira Campbell on 02-10-2025 Erythrocyte distribution width (RBC) [Ratio] 47.4 fl High 35.1-43.9 [facility] Glomerular filtration rate ( GFR) estimation/1.73 sq m using serum, plasma, or whole bOrdered By: Elvira Campbell on 02-10-2025 GFR/1.73 sq M.predicted among non-blacks MDRD (S/P/Bld) [Vol rate/Area] 44 mL/min/{1.73_m2} Low >60 [facility] Comment on above: mL/min/1.73m2 CKD-EP I Creatinine Equation (2020) Hematocrit Auto (Bld) [Volum e fraction]Ordered By: Elvira Campbell on 02-10-2025 Hematocrit (Bld) [Volume fraction] 37.9 % 37-47 [facility] Hemoglobin measurementOrdere d By: Elvira Campbell on 02-10-2025 Hemoglobin (Bld) [Mass/Vol] 12.3 g/dL 12.0-15.0 [facility] Immature granulocytes/100 WB C Auto (Bld)Ordered By: Elvira Campbell on 02-10-2025 Immature granulocytes/100 WBC (Bld) 0.700 % 0.0-0.9 [facility] Comment on above: IG% - Immature Granu locytes (promyelocytes, myelocytes and metamyelocytes) > 1% indicates that a LEFT SHIFT is Present. Ketones Test strip Ql (U)Ord ered By: Elvira Campbell on 02-10-2025 Ketones Ql (U) Negative Negative [facility] Lactic Acidon 02-10-2025 Lactate [Moles/Vol] 1.9 mmol/L Normal 0.0-2.0 [facility] Comment on above: Order Comment: Y Performed By: #### L 100.0100, L500.2500, L503.6005 #### [facility] Laboratory [address] [place] [address], [id number] Lactic acid measurementOrder ed By: Elvira Campbell on 02-10-2025 Lactate [Moles/Vol] 1.9 mmol/L 0.0-2.0 [facility] MCV (mean corpuscular volume ) determinationOrdered By: Elvira Campbell on 02-10-2025 MCV (RBC) [Entitic vol] 97.7 fL 81-99 [facility] Mean corpuscular hemoglobin (MCH) determinationOrdered By: Elvira Campbell on 02-10-2025 MCH (RBC) [Entitic mass] 31.7 pg 27.0-32.0 [facility] Mean corpuscular hemoglobin concentration (MCHC) determinationOrdered By: Elvira Campbell on 02-10-2025 MCHC (RBC) [Mass/Vol] 32.5 g/dL 32-36 [facility] Mean platelet volume determi nationOrdered By: Elvira Campbell on 02-10-2025 Platelet mean volume (Bld) [Entitic vol] 8.0 fL 6.2-12.0 [facility] Microscopic analysis of urin e for red blood cells (RBC)Ordered By: Elvira Campbell on 02-10-2025 Microscopic analysis of urine for red blood cells (RBC) 0-5 SEEN /hpf 0-5 [facility] Monocyte percentageOrdered B y: Elvira Campbell on 02-10-2025 Monocytes/100 WBC (Bld) 10.4 % High 0-10 [facility] Mucus LM Ql (Urine sed)Order ed By: Elvira Campbell on 02-10-2025 Mucus Ql (Urine sed) 0 SEEN /hpf [facility] Neutrophil percentageOrdered By: Elvira Campbell on 02-10-2025 Neutrophils/100 WBC (Bld) 82.0 % High 47-70 [facility] Nitrite Test strip Ql (U)Ord ered By: Elvira Campbell on 02-10-2025 Nitrite Ql (U) Negative Negative [facility] Nucleated red blood cell per centageOrdered By: Elvira Campbell on 02-10-2025 Nucleated RBC/100 WBC (Bld) [Ratio] 0 % 0-5 [facility] Platelet countOrdered By: Nika Campbell on 02-10-2025 Platelets (Bld) [#/Vol] 542 10*3/uL High 150-450 [facility] Platelet estimateOrdered By: Elvira Campbell on 02-10-2025 Platelets LM Ql (Bld) MOD INC ADEQ [facility] Potassium measurement (mass/ volume)Ordered By: Elvira Campbell on 02-10-2025 Potassium (Unsp spec) [Mass/Vol] 3.3 mmol/L 3.3-5.1 [facility] Protein Test strip Ql (U)Ord ered By: Elvira Campbell on 02-10-2025 Protein Ql (U) 30 mg/dl High Negative [facility] RBC Auto (Bld) [#/Vol]Ordere d By: Elvira Campbell on 02-10-2025 RBC (Bld) [#/Vol] 3.88 10*6/uL Low 4.2-5.4 [facility] Serum creatinine measurement (mass/volume)Ordered By: Elvira Campbell on 02-10-2025 Creatinine [Mass/Vol] 1.20 mg/dL 0.70-1.20 [facility] Serum glucose measurement (m ass/volume)Ordered By: Elvira Campbell on 02-10-2025 Glucose [Mass/Vol] 113 mg/dL High 70-99 [facility] Serum or plasma calcium jaki urement (mass/volume)Ordered By: Elvira Campbell on 02-10-2025 Calcium [Mass/Vol] 9.2 mg/dL 7.6-11.0 [facility] Serum or plasma urea nitroge n measurement (mass/volume)Ordered By: Elvira Campbell on 02-10-2025 Urea nitrogen [Mass/Vol] 29 mg/dL High 4-19 [facility] Sodium levelOrdered By: Elvira Campbell on 02-10-2025 Sodium [Moles/Vol] 136 mmol/L 133-145 [facility] Squamous epithelial cells de tection in urine sediment by light microscopyOrdered By: Elvira Campbell on 02-10-2025 Epithelial cells.squamous LM Ql (Urine sed) 0-5 SEEN /hpf 5-10 [facility] Transitional cells detection in urine sediment by light microscopyOrdered By: Elvira Campbell on 02-10-2025 Transitional cells LM Ql (Urine sed) 0-5 SEEN /hpf 0-5 [facility] Urinalysis, Completeon 02-10 EPI,TRANSITION 0-5 SEEN Normal 0-5 [facility] Comment on above: Order Comment: CLEAN CATCH Performed By: #### L 400.0001 #### [facility] Laboratory [address] [place], [place], [id number] EPI,SQUAMOUS 0-5 SEEN Normal 5-10 [facility] Comment on above: Order Comment: CLEAN CATCH Performed By: #### L 400.0001 #### [facility] [address] [place], [address] RBC 0-5 SEEN Normal 0-5 [facility] Comment on above: Order Comment: CLEAN CATCH Performed By: #### L 400.0001 #### [facility] [address] [place], [address] WBC 0-5 SEEN Normal 0-5 [facility] Comment on above: Order Comment: CLEAN CATCH Performed By: #### L 400.0001 #### [facility] [address] [place], [address] BACTERIA 0 SEEN Normal None Seen [facility] Comment on above: Order Comment: CLEAN CATCH Performed By: #### L 400.0001 #### [facility] [address] [place], [address] Mucus Ql (Urine sed) 0 SEEN Normal [facility] Comment on above: Order Comment: CLEAN CATCH Performed By: #### L 400.0001 #### [facility] [address] [place], [address] Urine clarityOrdered By: Brook Campbell on 02-10-2025 Clarity (U) Clear Clear [facility] Urine color determinationOrd ered By: Elvira Campbell on 02-10-2025 Color (U) Yellow Yellow [facility] Urine glucose detectionOrder ed By: Elvira Campbell on 02-10-2025 Glucose Ql (U) Normal mg/dl Normal [facility] Urine leukocyte esterase det ection by dipstickOrdered By: Elvira Campbell on 02-10-2025 Leukocyte esterase Test strip Ql (U) Negative Negative [facility] Urine pHOrdered By: Elvira oseguera on 02-10-2025 pH (U) 6.0 [pH] 5.0 - 8.0 [facility] Urine sediment bacteria coun t by microscopy (number/high power field)Ordered By: Elvira Campbell on 02-10-2025 Bacteria LM.HPF (Urine sed) [#/Area] 0 /[HPF] None Seen [facility] Urine specific gravity measu rementOrdered By: Elvira Campbell on 02-10-2025 Specific gravity (U) [Rel density] 1.010 1.002-1.030 [facility] Urine urobilinogen measureme ntOrdered By: Elvirataylor Campbell on 02-10-2025 Urobilinogen Ql (U) Normal mg/dl Normal [facility] White blood cell (WBC) count Ordered By: Elvira Adrian on 02-10-2025 WBC (Bld) [#/Vol] 19.0 10*3/uL High 4.4-11.0 [facility] White blood cell countOrdere d By: Elvira Campbell on 02-10-2025 White blood cell count 0-5 SEEN /hpf 0-5 [facility] CBC W Auto Differential pane l (Bld)on 02-09-2025 Basophils (Bld) [#/Vol] 0.00 10*3/uL Normal <0.11 [facility] Comment on above: Order Comment: Speci men Type: BLOOD SPECIMEN Ordering Facility: [facility] Address: [address] [place] [address] Performed By: #### 5 7021-8 #### [facility] CLIA [id number] [address] [place] [address] [place] Basophils/100 WBC (Bld) 0.0 % Normal [facility] Comment on above: Order Comment: Speci men Type: BLOOD SPECIMEN Ordering Facility: [facility] Address: [address] [place] [address] Performed By: #### 5 7021-8 #### [facility] CLIA [id number] [address] [place] [address] [place] Differential cell count method Nom (Bld) Manual Normal [facility] Comment on above: Order Comment: Speci men Type: BLOOD SPECIMEN Ordering Facility: [facility] Address: [address] [place] [address] Performed By: #### 5 7021-8 #### [facility] CLIA [id number] [address] [place] [address] [place] Eosinophils (Bld) [#/Vol] 0.00 10*3/uL Normal <0.46 [facility] Comment on above: Order Comment: Speci men Type: BLOOD SPECIMEN Ordering Facility: [facility] Address: [address] [place] [address] Performed By: #### 5 7021-8 #### [facility] CLIA [id number] [address] [place] [address] [place] Eosinophils/100 WBC (Bld) 0.0 % Normal [facility] Comment on above: Order Comment: Speci men Type: BLOOD SPECIMEN Ordering Facility: [facility] Address: [address] [place] [address] Performed By: #### 5 7021-8 #### [facility] CLIA [id number] [address] [place] [address] [place] Erythrocyte distribution width (RBC) [Ratio] 13.3 % Normal 11.5-15.0 [facility] Comment on above: Order Comment: Speci men Type: BLOOD SPECIMEN Ordering Facility: [facility] Address: [address] [place] [address] Performed By: #### 5 7021-8 #### [facility] CLIA [id number] [address] [place] [address] [place] Hematocrit (Bld) [Volume fraction] 40.4 % Normal 36.0-46.0 [facility] Comment on above: Order Comment: Speci men Type: BLOOD SPECIMEN Ordering Facility: [facility] Address: [address] [place] [address] Performed By: #### 5 7021-8 #### [facility] CLIA [id number] [address] [place] [address] [place] Hemoglobin (Bld) [Mass/Vol] 12.9 g/dL Normal 11.5-15.5 [facility] Comment on above: Order Comment: Speci men Type: BLOOD SPECIMEN Ordering Facility: [facility] Address: [address] [place] [address] Performed By: #### 5 7021-8 #### [facility] CLIA [id number] [address] [place] [address] [place] Lymphocytes (Bld) [#/Vol] 1.01 10*3/uL Normal 1.00-4.00 [facility] Comment on above: Order Comment: Speci men Type: BLOOD SPECIMEN Ordering Facility: [facility] Address: [address] [place] [address] Performed By: #### 5 7021-8 #### [facility] CLIA [id number] [address] [place] [address] [place] Lymphocytes/100 WBC (Bld) 6.1 % Normal [facility] Comment on above: Order Comment: Speci men Type: BLOOD SPECIMEN Ordering Facility: [facility] Address: [address] [place] [address] Performed By: #### 5 7021-8 #### [facility] CLIA [id number] [address] [place] [address] [place] MCH (RBC) [Entitic mass] 31.5 pg Normal 26.0-34.0 [facility] Comment on above: Order Comment: Speci men Type: BLOOD SPECIMEN Ordering Facility: [facility] Address: [address] [place] [address] Performed By: #### 5 7021-8 #### [facility] CLIA [id number] [address] [place] [address] [place] MCHC (RBC) [Mass/Vol] 31.9 g/dL Normal 30.5-36.0 [place] Comment on above: Order Comment: Speci men Type: BLOOD SPECIMEN Ordering Facility: [facility] Address: [address] [place] [address] Performed By: #### 5 7021-8 #### [facility] CLIA [id number] [address] [place] [address] [place] MCV (RBC) [Entitic vol] 98.5 fL Normal 80.0-100.0 [facility] Comment on above: Order Comment: Speci men Type: BLOOD SPECIMEN Ordering Facility: [facility] Address: [address] [place] [address] Performed By: #### 5 7021-8 #### [facility] CLIA [id number] [address] [place] [address] [place] Monocytes (Bld) [#/Vol] 1.44 10*3/uL High <0.87 [facility] Comment on above: Order Comment: Speci men Type: BLOOD SPECIMEN Ordering Facility: [facility] Address: [address] [place] [address] Performed By: #### 5 7021-8 #### [facility] CLIA [id number] [address] [place] [address] [place] Monocytes/100 WBC (Bld) 8.7 % Normal [facility] Comment on above: Order Comment: Speci men Type: BLOOD SPECIMEN Ordering Facility: [facility] Address: [address] [place] [address] Performed By: #### 5 7021-8 #### [facility] CLIA [id number] [address] [place] [address] [place] Neutrophils (Bld) [#/Vol] 14.12 10*3/uL High 1.45-7.50 [facility] Comment on above: Order Comment: Speci men Type: BLOOD SPECIMEN Ordering Facility: [facility] Address: [address] [place] [address] Performed By: #### 5 7021-8 #### [facility] CLIA [id number] [address] [place] [address] [place] Neutrophils/100 WBC (Bld) 85.2 % Normal [facility] Comment on above: Order Comment: Speci men Type: BLOOD SPECIMEN Ordering Facility: [facility] Address: [address] [place] [address] Performed By: #### 5 7021-8 #### [facility] CLIA [id number] [address] [place] [address] [place] Nucleated RBC (Bld) [#/Vol] 10*3/uL Normal <0.01 [facility] Comment on above: Order Comment: Speci men Type: BLOOD SPECIMEN Ordering Facility: [facility] Address: [address] [place] [address] Performed By: #### 5 7021-8 #### [facility] CLIA [id number] [address] [place] [address] [place] Nucleated RBC/100 WBC (Bld) [Ratio] 0.0 /100 WBC Normal [facility] Comment on above: Order Comment: Speci men Type: BLOOD SPECIMEN Ordering Facility: [facility] Address: [address] [place] [address] Performed By: #### 5 7021-8 #### [facility] CLIA [id number] [address] [place] [address] [place] Ovalocytes LM Ql (Bld) Few Normal [place] Comment on above: Order Comment: Speci men Type: BLOOD SPECIMEN Ordering Facility: [facility] Address: [address] [place] [address] Performed By: #### 5 7021-8 #### [facility] CLIA [id number] [address] [place] [address] [place] Platelet mean volume (Bld) [Entitic vol] 8.5 fL Low 9.0-12.7 [facility] Comment on above: Order Comment: Speci men Type: BLOOD SPECIMEN Ordering Facility: [facility] Address: [address] [place] [address] Performed By: #### 5 7021-8 #### [facility] CLIA [id number] [address] [place] [address] [place] Platelets (Bld) [#/Vol] 572 10*3/uL High 150-400 [facility] Comment on above: Order Comment: Speci men Type: BLOOD SPECIMEN Ordering Facility: [facility] Address: [address] [place] [address] Performed By: #### 5 7021-8 #### [facility] CLIA [id number] [address] [place] [address] [place] Platelets Estimate (Bld) [#/Vol] Increased Normal [facility] Comment on above: Order Comment: Speci men Type: BLOOD SPECIMEN Ordering Facility: [facility] Address: [address] [place] [address] Performed By: #### 5 7021-8 #### [facility] CLIA [id number] [address] [place] [address] [place] RBC (Bld) [#/Vol] 4.10 10*6/uL Normal 3.90-5.20 [facility] Comment on above: Order Comment: Speci men Type: BLOOD SPECIMEN Ordering Facility: [facility] Address: [address] [place] [address] Performed By: #### 5 7021-8 #### [facility] CLIA [id number] [address] [place] [address] [place] RED CELL MORPH Reviewed: see result s of individual morphologies Normal [facility] Comment on above: Order Comment: Speci men Type: BLOOD SPECIMEN Ordering Facility: [facility] Address: [address] [place] [address] Performed By: #### 5 7021-8 #### [facility] CLIA [id number] [address] [place] [address] [place] WBC (Bld) [#/Vol] 16.57 10*3/uL High 3.70-11.00 [facility] Comment on above: Order Comment: Speci men Type: BLOOD SPECIMEN Ordering Facility: [facility] Address: [address] [place] [address] Performed By: #### 5 7021-8 #### [facility] CLIA [id number] [address] [place] [address] [place] CNOVon 02-09-2025 CNOV Office Visit (INTMWS ) PATY RIOS ([id number]) 1940 F Date Time Provider Department 02/09/25 2:00 PM MRATHA FUNK INTALDO During your visit today, we [...] 75+ se (more content not included)... Normal [facility] Comprehensive metabolic 2000 panelon 02-09-2025 Albumin [Mass/Vol] 3.5 g/dL Low 3.9-4.9 [facility] Comment on above: Order Comment: Speci pro Type: BLOOD SPECIMENOrdering Facility: [facility] Address: [address] [place] [address] Performed By: #### 2 4323-8, 3016-3, 3051-0, 3027 ####[facility] [id number] [place] [address] [place] ALP [Catalytic activity/Vol] 95 U/L Normal 34-123 [facility] Comment on above: Order Comment: Speci men Type: BLOOD SPECIMENOrdering Facility: [facility] Address: [address] [place] [address] Performed By: #### 2 4323-8, 3016-3, 3051-0, 3024-7 ####[facility] [id number] [address] [address] [place] ALT [Catalytic activity/Vol] 9 U/L Normal 7-38 [facility] Comment on above: Order Comment: Speci men Type: BLOOD SPECIMENOrdering Facility: [facility] Address: [address] [place] [address] Performed By: #### 2 4323-8, 3016-3, 305-0, 7 ####[facility] [id number] [address] [address] [place] Anion gap [Moles/Vol] 17 mmol/L High 8-15 [place] Comment on above: Order Comment: Speci men Type: BLOOD SPECIMENOrdering Facility: [facility] Address: [address] [place] [address] Performed By: #### 2 4323-8, 6-3, 3050-0, 7 ####[facility] [id number] [address] [address] [place] AST [Catalytic activity/Vol] 13 U/L Normal 13-35 [facility] Comment on above: Order Comment: Speci men Type: BLOOD SPECIMENOrdering Facility: [facility] Address: [address] [place], [place] [address] Performed By: #### 2 4323-8, 6-3, 305-0, 7 ####[facility] [id number] [address] [address] [place] Bilirubin [Mass/Vol] 0.4 mg/dL Normal 0.2-1.3 [facility] Comment on above: Order Comment: Speci men Type: BLOOD SPECIMENOrdering Facility: [facility] Address: [address] [place] [address] Performed By: #### 2 4323-8, 3016-3, 305-0, 302-7 ####[facility] [id number] [address] [address] [place] Calcium [Mass/Vol] 9.6 mg/dL Normal 8.5-10.2 [facility] Comment on above: Order Comment: Speci men Type: BLOOD SPECIMENOrdering Facility: [facility] Address: [address] [place], [place] [address] Performed By: #### 2 4323-8, 3016-3, 305-0, 7 ####[facility] [id number] [address] [address] [place] Chloride [Moles/Vol] 97 mmol/L Low 98-107 [facility] Comment on above: Order Comment: Speci men Type: BLOOD SPECIMENOrdering Facility: [facility] Address: [address] [place] [address] Performed By: #### 2 4323-8, 3016-3, 3050-0, 7 ####[facility] [id number] [address] [address] [place] CO2 [Moles/Vol] 23 mmol/L Normal 22-30 [facility] Comment on above: Order Comment: Speci men Type: BLOOD SPECIMENOrdering Facility: [facility] Address: [address] [place] [address] Performed By: #### 2 4323-8, 3016-3, 305-0, 7 ####[facility] [id number] [address] [address] [place] Creatinine [Mass/Vol] 1.85 mg/dL High 0.58-0.96 [place] Comment on above: Order Comment: Speci men Type: BLOOD SPECIMENOrdering Facility: [facility] Address: [address] [place] [address] Performed By: #### 2 4323-8, 3016-3, 305-0, 3024-7 ####[facility] [id number] [place] [address] [place] eGFRcr SerPlBld CKD-EPI 2020 26 mL/min/1.73m??? Low >=60 [facility] Comment on above: Order Comment: Tomasz pro Type: BLOOD SPECIMENOrdering Facility: [facility] Address: [address] [place] [address] Result Comment: Briana mated Glomerular Filtration Rate [...] actual GFR. Performed By: #### 2 4323-8, 3016-3, 305-0, 7 ####[facility] [id number] [place] [address] [place] Glucose [Mass/Vol] 110 mg/dL High 74-99 [facility] Comment on above: Order Comment: Tomasz mast Type: BLOOD SPECIMENOrdering Facility: [facility] Address: [address] [place] [address] Result Comment: The [place] [employer] (ADA) provides guidance for cutoff [...] Standards of Medical Care in Diabetes 2016, [place] [employer]. Diabetes Care. 2016.39(Suppl 1). Performed By: #### 2 4323-8, 3016-3, 305-0, 3023-7 ####[facility] [id number] [address] [address] [place] Potassium [Moles/Vol] 3.6 mmol/L Low 3.7-5.1 [place] Comment on above: Order Comment: Speci men Type: BLOOD SPECIMENOrdering Facility: [facility] Address: [address] [place] [address] Performed By: #### 2 4323-8, 3016-3, 305-0, 7 ####[facility] LABIA [id number] [address] [address] [place] Protein [Mass/Vol] 7.5 g/dL Normal 6.3-8.0 [facility] Comment on above: Order Comment: Speci men Type: BLOOD SPECIMENOrdering Facility: [facility] Address: [address] [place] [address] Performed By: #### 2 4323-8, 6-3, 305-0, 7 ####[facility] [id number] [address] [address] [place] Sodium [Moles/Vol] 137 mmol/L Normal 136-144 [facility] Comment on above: Order Comment: Speci men Type: BLOOD SPECIMENOrdering Facility: [facility] Address: [address] [place] [address] Performed By: #### 2 4323-8, 3016-3, 305-0, 7 ####[facility]IA [id number] [address] [address] [place] Urea nitrogen [Mass/Vol] 36 mg/dL High 7-21 [facility] Comment on above: Order Comment: Speci men Type: BLOOD SPECIMENOrdering Facility: [facility] Address: [address] [place], [place] [address] Performed By: #### 2 4323-8, 6-3, 305-0, 3023-7 ####[facility] LABCLIA [id number] [place] [id number] [facility] [place] T3Free SerPl-mCncon 02-10-20 25 Free T3 [Mass/Vol] 1.8 pg/mL Low 2.3-4.1 [facility] Comment on above: Order Comment: Speci men Type: BLOOD SPECIMENOrdering Facility: [facility] Address: [address] [place] [address] Performed By: #### 2 4323-8, 3016-3, 3051-0, 3024-7 ####[facility]IA [id number] [place] [address] [place] T4 Free SerPl-mCncon 025 Free T4 [Mass/Vol] 2.0 ng/dL High 0.9-1.7 [facility] Comment on above: Order Comment: Speci men Type: BLOOD SPECIMENOrdering Facility: [facility] Address: [address] [place] [address] Performed By: #### 2 4323-8, 3016-3, 3051-0, 3024-7 ####[facility]IA [id number] [address] [place] TSH SerPl-aCncon 02-09-2025 TSH Qn 0.176 m[IU]/L Low 0.270-4.200 [facility] Comment on above: Order Comment: Speci men Type: BLOOD SPECIMENOrdering Facility: [facility] Address: [address] [place] [address] Performed By: #### 2 4323-8, 3016-3, 305-0, 3024-7 ####[facility]IA [id number] [place] [id number] [place] CNOVon 09-14-2024 CNOV Office Visit (INTMWS ) PATY RIOS ([id number]) 1940 F Date Time Provider Department 09/14/24 8:00 AM RUSS BARONE During your visit today, we [...] 118/68 Pulse 73 Ht 150 cm (4' 11.06") Wt 48.5 kg (107 lb) SpO2 97% [...] Lab/Diagnostic S (more content not included)... Normal [facility] CBC panel Auto (Bld)on 09-08 Erythrocyte distribution width (RBC) [Ratio] 11.7 % Normal 11.5-15.0 [facility] Comment on above: Order Comment: Tomasz mast Type: BLOOD SPECIMEN [facility] Address: [address] [place] [address] Performed By: #### 5 7021-8 #### [facility] CLIA [id number] [address] [place] [address] [place] Hematocrit (Bld) [Volume fraction] 42.9 % Normal 36.0-46.0 [facility] Comment on above: Order Comment: Tomasz mast Type: BLOOD SPECIMEN [facility] Address: [address] [place] [address] Performed By: #### 5 7021-8 #### [facility] CLIA [id number] [address] [place] [address] [place] Hemoglobin (Bld) [Mass/Vol] 14.0 g/dL Normal 11.5-15.5 [facility] Comment on above: Order Comment: Zachariahi pro Type: BLOOD SPECIMEN [facility] Address: [address] [place] [address] Performed By: #### 5 7021-8 #### [facility] CLIA [id number] [address] [place] [address] [place] MCH (RBC) [Entitic mass] 32.2 pg Normal 26.0-34.0 [facility] Comment on above: Order Comment: Zachariahi pro Type: BLOOD SPECIMEN [facility] Address: [address] [place] [address] Performed By: #### 5 7021-8 #### [facility] CLIA [id number] [address] [place] [address] [place] MCHC (RBC) [Mass/Vol] 32.6 g/dL Normal 30.5-36.0 [place] Comment on above: Order Comment: Speci men Type: BLOOD SPECIMEN [facility] Address: [address] [place] [address] Performed By: #### 5 7021-8 #### [facility] CLIA [id number] [address] [place] [address] [place] MCV (RBC) [Entitic vol] 98.6 fL Normal 80.0-100.0 [facility] Comment on above: Order Comment: Speci men Type: BLOOD SPECIMEN [facility] Address: [address] [place] [address] Performed By: #### 5 7021-8 #### [facility] CLIA [id number] [address] [place] [address] [place] Nucleated RBC (Bld) [#/Vol] 10*3/uL Normal <0.01 [facility] Comment on above: Order Comment: Speci men Type: BLOOD SPECIMEN [facility] Address: [address] [place] [address] Performed By: #### 5 7021-8 #### [facility] CLIA [id number] [address] [place] [address] [place] Platelet mean volume (Bld) [Entitic vol] 8.7 fL Low 9.0-12.7 [facility] Comment on above: Order Comment: Speci men Type: BLOOD SPECIMEN [facility] Address: [address] [place] [address] Performed By: #### 5 7021-8 #### [facility] CLIA [id number] [address] [place] [address] [place] Platelets (Bld) [#/Vol] 272 10*3/uL Normal 150-400 [facility] Comment on above: Order Comment: Speci men Type: BLOOD SPECIMEN [facility] Address: [address] [place] [address] Performed By: #### 5 7021-8 #### [facility] CLIA [id number] [address] [place] [address] [place] RBC (Bld) [#/Vol] 4.35 10*6/uL Normal 3.90-5.20 [facility] Comment on above: Order Comment: Speci men Type: BLOOD SPECIMEN [facility] Address: [address] [place] [address] Performed By: #### 5 7021-8 #### [facility] CLIA [id number] [address] [place] [address] [place] WBC (Bld) [#/Vol] 4.49 10*3/uL Normal 3.70-11.00 [facility] Comment on above: Order Comment: Speci men Type: BLOOD SPECIMEN [facility] Address: [address] [place] [address] Performed By: #### 5 7021-8 #### [facility] CLIA [id number] [address] [place] [address] [place] Comprehensive metabolic 2000 panelon 09-08-2024 Albumin [Mass/Vol] 4.1 g/dL Normal 3.9-4.9 [facility] Comment on above: Order Comment: Speci men Type: BLOOD SPECIMEN [facility] Address: [address] [place] [address] Performed By: #### 5 7021-8 #### [facility] CLIA [id number] [address] [place] [address] [place] ALP [Catalytic activity/Vol] 59 U/L Normal 34-123 [facility] Comment on above: Order Comment: Speci men Type: BLOOD SPECIMEN [facility] Address: [address] [place] [address] Performed By: #### 5 7021-8 #### [facility] CLIA [id number] [address] [place] [address] [place] ALT [Catalytic activity/Vol] 6 U/L Low 7-38 [facility] Comment on above: Order Comment: Speci men Type: BLOOD SPECIMEN [facility] Address: [address] [place] [address] Performed By: #### 5 7021-8 #### [facility] CLIA [id number] [address] [place] [address] [place] Anion gap [Moles/Vol] 13 mmol/L Normal 8-15 [place] Comment on above: Order Comment: Speci men Type: BLOOD SPECIMEN [facility] Address: [address] [place] [address] Performed By: #### 5 7021-8 #### [facility] CLIA [id number] [address] [place] [address] [place] AST [Catalytic activity/Vol] 15 U/L Normal 13-35 [facility] Comment on above: Order Comment: Speci men Type: BLOOD SPECIMEN [facility] Address: [address] [place] [address] Performed By: #### 5 7021-8 #### [facility] CLIA [id number] [address] [place] [address] [place] Bilirubin [Mass/Vol] 0.6 mg/dL Normal 0.2-1.3 [facility] Comment on above: Order Comment: Speci men Type: BLOOD SPECIMEN [facility] Address: [address] [place] [address] Performed By: #### 5 7021-8 #### [facility] CLIA [id number] [address] [place] [address] [place] Calcium [Mass/Vol] 9.3 mg/dL Normal 8.5-10.2 [facility] Comment on above: Order Comment: Speci men Type: BLOOD SPECIMEN [facility] Address: [address] [place] [address] Performed By: #### 5 7021-8 #### [facility] CLIA [id number] [address] [place], [place] [address] [place] Chloride [Moles/Vol] 101 mmol/L Normal 98-107 [facility] Comment on above: Order Comment: Speci men Type: BLOOD SPECIMEN [facility] Address: [address] [place] [address] Performed By: #### 5 7021-8 #### [facility] CLIA [id number] [address] [place] [address] [place] CO2 [Moles/Vol] 26 mmol/L Normal 22-30 [facility] Comment on above: Order Comment: Speci men Type: BLOOD SPECIMEN [facility] Address: [address] [place] [address] Performed By: #### 5 7021-8 #### [facility] CLIA [id number] [address] [place] [address] [place] Creatinine [Mass/Vol] 0.63 mg/dL Normal 0.58-0.96 [place] Comment on above: Order Comment: Speci men Type: BLOOD SPECIMEN [facility] Address: [address] [place] [address] Performed By: #### 5 7021-8 #### [facility] CLIA [id number] [address] [place], [place] [address] [place] Creatinine and Glomerular filtration rate.predicted panel (S/P/Bld) 87 mL/min/1.73m??? Normal >=60 [facility] Comment on above: Order Comment: Tomasz mast Type: BLOOD SPECIMEN [facility] Address: [address] [place] [address] Result Comment: Briana mated Glomerular Filtration Rate [...] accurately reflect actual GFR. Performed By: #### 5 7021-8 #### [facility] CLIA [id number] [address] [place] [address] [place] Glucose [Mass/Vol] 96 mg/dL Normal 74-99 [facility] Comment on above: Order Comment: Tomasz mast Type: BLOOD SPECIMEN [facility] Address: [address] [place] [address] Result Comment: The [place] Diabetes Association (ADA) provides guidance for cutoff [...] Standards of Medical Care in Diabetes 2016, [place] [employer]. Diabetes Care. 2016.39(Suppl 1). Performed By: #### 5 7021-8 #### [facility] CLIA [id number] [address] [place] [address] [place] Potassium [Moles/Vol] 3.5 mmol/L Low 3.7-5.1 [place] Comment on above: Order Comment: Tomasz mast Type: BLOOD SPECIMEN [facility] Address: [address] [place] [address] Performed By: #### 5 7021-8 #### [facility] CLIA [id number] [address] [place] [address] [place] Protein [Mass/Vol] 6.8 g/dL Normal 6.3-8.0 [facility] Comment on above: Order Comment: Speci men Type: BLOOD SPECIMEN [facility] Address: [address] [place] [address] Performed By: #### 5 7021-8 #### [facility] CLIA [id number] [address] [place] [address] [place] Sodium [Moles/Vol] 140 mmol/L Normal 136-144 [facility] Comment on above: Order Comment: Speci men Type: BLOOD SPECIMEN [facility] Address: [address] [place] [address] Performed By: #### 5 7021-8 #### [facility] CLIA [id number] [address] [place] [address] [place] Urea nitrogen [Mass/Vol] 13 mg/dL Normal 7-21 [facility] Comment on above: Order Comment: Speci men Type: BLOOD SPECIMEN [facility] Address: [address] [place] [address] Performed By: #### 5 7021-8 #### [facility] CLIA [id number] [address] [place], [place] [id number] [place] Lipid 1996 panelon 5 Cholesterol [Mass/Vol] 141 mg/dL Normal <200 [place] Comment on above: Order Comment: Speci men Type: BLOOD SPECIMEN [facility] Address: [address] [place] [address] Result Comment: <200 mg/dL, Desirable 200-239 mg/dL, Borderline high >239 mg/dL, High Performed By: #### 5 7021-8 #### [facility] CLIA [id number] [facility] [place] [address] [place] Cholesterol in HDL [Mass/Vol] 37 mg/dL Low >39 [facility] Comment on above: Order Comment: Tomasz mast Type: BLOOD SPECIMEN [facility] Address: [address] [place] [address] Result Comment: 40-5 9 mg/dL, Acceptable >59 mg/dL, High: Negative risk factor for coronary heart disease <40 mg/dL, Low: Positive risk factor for coronary heart disease Performed By: #### 5 7021-8 #### [facility] CLIA [id number] [address] [place] [address] [place] Cholesterol in LDL [Mass/Vol] 68 mg/dL Normal <100 [facility] Comment on above: Order Comment: Tomasz mast Type: BLOOD SPECIMEN [facility] Address: [address] [place] [address] Result Comment: <100 mg/dL, Optimal 100-129 mg/dL, Near optimal/above optimal 130-159 mg/dL, Borderline high 160-189 mg/dL, High >189 mg/dL, Very high Secondary prevention optimal LDL Cholesterol levels are recommended to be < 70 mg/dL Performed By: #### 5 7021-8 #### [facility] CLIA [id number] [address] [place] [address] OF [facility] Cholesterol in LDL/Cholesterol in HDL [Mass ratio] 1.84 {ratio} Normal <2.54 [facility] Comment on above: Order Comment: Tomasz pro Type: BLOOD SPECIMEN [facility] Address: [address] [place] [address] Result Comment: Quentin cho: 1. National Cholesterol Education Program ATP III Guideline At-A-Glance Quick Desk Reference: National Heart, Lung, and Blood [place]. National Institutes of Health. 2001: NIH Publication No. 01-3305. 2. An International Atherosclerosis Society position paper: global recommendations for the management of dyslipidemia: executive summary, Atherosclerosis. 2014: 232(2):410-413. Performed By: #### 5 7021-8 #### [facility] CLIA [id number] [address] [place] [address] [place] Cholesterol in VLDL [Mass/Vol] 36 mg/dL High <30 [facility] Comment on above: Order Comment: Speci men Type: BLOOD SPECIMEN [facility] Address: [address] [place] [address] Performed By: #### 5 7021-8 #### [facility] CLIA [id number] [address] [place], [place] [id number] [place] Cholesterol non HDL [Mass/Vol] 104 mg/dL Normal <130 [facility] Comment on above: Order Comment: Speci men Type: BLOOD SPECIMEN [facility] Address: [address] [place] [address] Result Comment: <130 mg/dL, Optimal 130-159 mg/dL, Near optimal/above optimal 160-189 mg/dL, Borderline high 190-219 mg/dL, High >219 mg/dL, Very high Secondary prevention optimal non HDL Cholesterol levels are recommended to be <100 mg/dL Performed By: #### 5 7021-8 #### [facility] CLIA [id number] [address] [place], [place] [address] [place] Cholesterol.total/Choles terol in HDL [Mass ratio] 3.81 {ratio} Normal <5.10 [facility] Comment on above: Order Comment: Speci men Type: BLOOD SPECIMEN [facility] Address: [address] [place] [address] Performed By: #### 5 7021-8 #### [facility] CLIA [id number] [address] [place], [place] [id number] [place] FASTING TIME 14 hrs Normal [facility] Comment on above: Order Comment: Speci men Type: BLOOD SPECIMEN [facility] Address: [address] [place] [address] Performed By: #### 5 7021-8 #### [facility] CLIA [id number] [address] [place] [address] [place] Triglyceride [Mass/Vol] 182 mg/dL High <150 [facility] Comment on above: Order Comment: Speci men Type: BLOOD SPECIMEN [facility] Address: [address] [place] [address] Result Comment: <150 mg/dL, Normal 150-199 mg/dL, Borderline high 200-499 mg/dL, High >499 mg/dL, Very high Performed By: #### 5 7021-8 #### [facility] [place] [id number] [address] [place] [address] [place] TSH SerPl-aCncon 09-08-2024 TSH Qn 0.154 m[IU]/L Low 0.270-4.200 [facility] Comment on above: Order Comment: Speci men Type: BLOOD SPECIMEN [facility] Address: [address] [place] [address] Performed By: #### 5 7021-8 #### [facility] [place] [id number] [address] [place] [address] [place] CN[facility]iv[facility] PATY RIOS ([id number]) 1940 F Date Time Provider Department 04/28/24 RUSS BARONE INTWS During your visit today, we recorded the [...] AGE 6MO-64YR, TRIVALENT (AFLURIA, FLULAVAL, FLUVIRIN, FLUZONE) [[id number]] Order #: [id number] Prescriptions as of 04/29/2024 - losartan (COZAAR) [...] Status:Closed by KARRIE RUSSO on 04/29/24 Normal [facility] Vital Signs Date Time Vital Sign Value Performing Clinician Facility 03-21-2025 08:58-0400 Body mass index (BMI) [Ratio] 18.75 kg/m2 Russ Barone MD Work Phone: [facility] 03-21-2025 08:58-0400 Body weight 42.19 kg Russ Barone MD Work Phone: [facility] 03-21-2025 08:58-0400 Diastolic blood pressure 72 mm[Hg] Russ Barone MD Work Phone: [facility] 03-21-2025 08:58-0400 Heart rate 92 /min Russ Barone MD Work Phone: [facility] 03-21-2025 08:58-0400 Respiratory rate 16 /min Russ Barone MD Work Phone: [facility] 03-21-2025 08:58-0400 Systolic blood pressure 117 mm[Hg] Russ Barone MD Work Phone: [facility] 02-16-2025 12:34-0400 Body mass index (BMI) [Ratio] 19.35 kg/m2 Martha Older [employer] Work Phone: [facility] 02-16-2025 12:34-0400 Body weight 43.55 kg Martha Older [employer] Work Phone: [facility] 02-16-2025 12:34-0400 Diastolic blood pressure 60 mm[Hg] Martha Older [employer] Work Phone: [facility] 02-16-2025 12:34-0400 Heart rate 73 /min Martha Older [employer] Work Phone: [facility] 02-16-2025 12:34-0400 Respiratory rate 16 /min Martah Older [employer] Work Phone: [facility] 02-16-2025 12:34-0400 SaO2% (BldA) [Mass fraction] 97 % Martha Older [employer] Work Phone: [facility] 02-16-2025 12:34-0400 Systolic blood pressure 104 mm[Hg] Martha Older [employer] Work Phone: [facility] 02-14-2025 14:56-0400 Body temperature 96.3 [degF] Dr. Russ Barone MD Work Phone: 1(500)916-242423 [place] [address] 02-14-2025 14:56-0400 Diastolic blood pressure 48 mm[Hg] Dr. Russ Barone MD Work Phone: 9(436)462-861523 [place] [address] 02-14-2025 14:56-0400 Heart rate 74 /min Dr. Russ Barone MD Work Phone: 6(903)350-311923 [place] [address] 02-14-2025 14:56-0400 Respiratory rate 17 /min Dr. Russ Barone MD Work Phone: 5(401)378-223123 [place] [address] 02-14-2025 14:56-0400 SaO2% (BldA) [Mass fraction] 98 % Dr. Russ Barone MD Work Phone: 4(146)998-034023 [place] [address] 02-14-2025 14:56-0400 Systolic blood pressure 135 mm[Hg] Dr. Russ Barone MD Work Phone: 4(625)047-418506 [place] [address] 02-14-2025 10:02-0400 Body height 152.[address] Russ Barone MD Work Phone: 3(721)124-459523 [place] [address] 02-14-2025 10:02-0400 Body mass index (BMI) [Ratio] 18.4 kg/m2 Dr. Russ Barone MD Work Phone: 2(119)430-542823 [place] [address] 02-14-2025 10:02-0400 Body weight 42.[address] Russ Barone MD Work Phone: 2(205)931-473423 [place] [address] 02-10-2025 18:37-0400 Diastolic blood pressure 59 mm[Hg] Dr. Russ Barone MD Work Phone: 0(835)887-960523 [place] [address] 02-10-2025 18:37-0400 Heart rate 80 /min Dr. Russ Barone MD Work Phone: 4(600)036-773523 [place] [address] 02-10-2025 18:37-0400 Respiratory rate 18 /min Dr. Russ Barone MD Work Phone: 6(547)818-815023 [place] [address] 02-10-2025 18:37-0400 SaO2% (BldA) [Mass fraction] 95 % Dr. Russ Barone MD Work Phone: 3(349)332-486623 [place] [address] 02-10-2025 18:37-0400 Systolic blood pressure 140 mm[Hg] Dr. Russ Barone MD Work Phone: 7(514)622-336123 [place] [address] 02-10-2025 16:38-0400 Body height 152.[address] Russ Barone MD Work Phone: 6(176)678-401323 [place] [address] 02-10-2025 16:38-0400 Body mass index (BMI) [Ratio] 19.1 kg/m2 Dr. Russ Barone MD Work Phone: 3(239)296-041923 [place] [address] 02-10-2025 16:38-0400 Body temperature 97.4 [degF] Dr. Russ Barone MD Work Phone: 4(457)910-241423 [place] [address] 02-10-2025 16:38-0400 Body weight 44.[address] Russ Barone MD Work Phone: 7(173)421-694723 [place] [address] 09-14-2024 08:00-0400 Body height 150 cm Russ Barone MD Work Phone: 6(044)720-980955 [place] [address] 09-14-2024 08:00-0400 Body mass index (BMI) [Ratio] 21.57 kg/m2 Russ Barone MD Work Phone: 0(134)671-359755 [place] [address] 09-14-2024 08:00-0400 Body weight 48.53 kg Russ Barone MD Work Phone: 0(315)966-062655 [place] [address] 09-14-2024 08:00-0400 Diastolic blood pressure 68 mm[Hg] Russ Barone MD Work Phone: [facility] 09-14-2024 08:00-0400 Heart rate 73 /min Russ Barone MD Work Phone: [facility] 09-14-2024 08:00-0400 SaO2% (BldA) [Mass fraction] 97 % Russ Barone MD Work Phone: [facility] [facility] 09-14-2024 08:00-0400 Systolic blood pressure 118 mm[Hg] Russ Barone MD Work Phone: [facility] 03-18-2024 07:59-0400 Body mass index (BMI) [Ratio] 20.84 kg/m2 Martha Older [employer]ING [employer] Work Phone: [facility] 03-18-2024 07:59-0400 Body weight 48.4 kg Martha Older [employer] Work Phone: [facility] 03-18-2024 07:59-0400 Diastolic blood pressure 68 mm[Hg] Martha Older [employer] Work Phone: [facility] 03-18-2024 07:59-0400 Heart rate 76 /min Martha Older [employer]ING [employer] Work Phone: [facility] 03-18-2024 07:59-0400 Respiratory rate 16 /min Martha Older [employer]ING [employer] Work Phone: [facility] 03-18-2024 07:59-0400 SaO2% (BldA) [Mass fraction] 94 % Martha Older [employer] Work Phone: [facility] 03-18-2024 07:59-0400 Systolic blood pressure 122 mm[Hg] Martha Older [employer] Work Phone: [facility] 03-05-2024 07:44-0400 Body mass index (BMI) [Ratio] 21.79 kg/m2 Stephanie García [employer] Work Phone: [facility] 03-05-2024 07:44-0400 Body temperature 99.19 [degF] Stephanie García APRN.[employer] Work Phone: [facility] 03-05-2024 07:44-0400 Body weight 50.6 kg Stephanie García APRN.[employer] Work Phone: [facility] 03-05-2024 07:44-0400 Diastolic blood pressure 74 mm[Hg] Stephanie García APRN.[employer] Work Phone: [facility] 03-05-2024 07:44-0400 Heart rate 66 /min Stephanie García APRN.[employer] Work Phone: [facility] 03-05-2024 07:44-0400 Respiratory rate 18 /min Stephanie García APRN.[employer] Work Phone: [facility] 03-05-2024 07:44-0400 SaO2% (BldA) [Mass fraction] 96 % Stephanie García APRN.[employer] Work Phone: [facility] 03-05-2024 07:44-0400 Systolic blood pressure 170 mm[Hg] Stephanie García APRN.[employer] Work Phone: [facility] 03-03-2024 14:27-0400 Body mass index (BMI) [Ratio] 21.92 kg/m2 Sara Flores APRN.[employer] Work Phone: [facility] 03-03-2024 14:27-0400 Body temperature 98.91 [degF] Sara Flores APRN.[employer] Work Phone: [facility] 03-03-2024 14:27-0400 Body weight 50.9 kg Sara Flores APRN.[employer] Work Phone: [facility] 03-03-2024 14:27-0400 Diastolic blood pressure 76 mm[Hg] Sara Flores APRN.[employer] Work Phone: [facility] 03-03-2024 14:27-0400 Heart rate 77 /min Sara Flores APRN.[employer] Work Phone: [facility] 03-03-2024 14:27-0400 Respiratory rate 21 /min Sara Flores [employer] Work Phone: [facility] 03-03-2024 14:27-0400 SaO2% (BldA) [Mass fraction] 97 % Sara Flores [employer] Work Phone: [facility] 03-03-2024 14:27-0400 Systolic blood pressure 160 mm[Hg] Sara Flores [employer]ING [employer] Work Phone: [facility] 09-17-2023 08:01-0400 Body weight 49.9 kg Martha Older TESTING [employer] Work Phone: [facility] 09-17-2023 08:01-0400 Diastolic blood pressure 76 mm[Hg] Martha Older [employer] Work Phone: [facility] 09-17-2023 08:01-0400 Heart rate 64 /min Martha Older [employer]ING [employer] Work Phone: [facility] 09-17-2023 08:01-0400 Respiratory rate 16 /min Martha Older [employer] Work Phone: [facility] 09-17-2023 08:01-0400 SaO2% (BldA) [Mass fraction] 97 % Martha Older [employer] Work Phone: [facility] 09-17-2023 08:01-0400 Systolic blood pressure 130 mm[Hg] Martha Older [employer] Work Phone: [facility] 03-19-2023 08:01-0400 Body weight 50.35 kg Martha Older [employer] Work Phone: [facility] 03-19-2023 08:01-0400 Diastolic blood pressure 76 mm[Hg] Martha Older TESTING [employer] Work Phone: [facility] 03-19-2023 08:01-0400 Heart rate 68 /min Martha Older [employer]ING [employer] Work Phone: [facility] 03-19-2023 08:01-0400 Respiratory rate 16 /min Martha Older TESTING [employer] Work Phone: [facility] 03-19-2023 08:01-0400 SaO2% (BldA) [Mass fraction] 97 % Martha Older [employer]ING [employer] Work Phone: [facility] 03-19-2023 08:01-0400 Systolic blood pressure 124 mm[Hg] Martha Older [employer]ING [employer] Work Phone: [facility] 09-16-2022 08:31-0400 Body height 152.4 cm Russ Barone MD Work Phone: [facility] 09-16-2022 08:31-0400 Body temperature 97.3 [degF] Russ Barone MD Work Phone: [facility] 09-16-2022 08:31-0400 Body weight 50.8 kg Russ Barone MD Work Phone: [facility] 09-16-2022 08:31-0400 Diastolic blood pressure 60 mm[Hg] Russ Barone MD Work Phone: [facility] 09-16-2022 08:31-0400 Heart rate 64 /min Russ Barone MD Work Phone: [facility] 09-16-2022 08:31-0400 Respiratory rate 12 /min Russ Barone MD Work Phone: [facility] 09-16-2022 08:31-0400 SaO2% (BldA) [Mass fraction] 97 % Russ Barone MD Work Phone: [facility] 09-16-2022 08:31-0400 Systolic blood pressure 120 mm[Hg] Russ Barone MD Work Phone: [facility] 03-18-2022 08:40-0400 Body weight 49.9 kg Russ Barone MD Work Phone: [facility] 03-18-2022 08:40-0400 Diastolic blood pressure 62 mm[Hg] Russ Barone MD Work Phone: [facility] 03-18-2022 08:40-0400 Heart rate 60 /min Russ Barone MD Work Phone: [facility] 03-18-2022 08:40-0400 Respiratory rate 16 /min Russ Barone MD Work Phone: [facility] 03-18-2022 08:40-0400 Systolic blood pressure 120 mm[Hg] Russ Barone MD Work Phone: [facility] Encounters Encounter Date Encounter Type Care Provider Facility Start: 03-21-2025 End: 03-21-2025 Subsequent hospital visit by physician [facility] [place] Work Phone: Radiology Comment on above: Neck pain [M54.2] Start: 03-21-2025 End: 03-21-2025 ambulatory [facility] Facility:[facility] Start: 03-21-2025 End: 03-21-2025 Office outpatient visit 25 minutes Rsus Barone MD Work Phone: [facility] [place] Comment on above: Colitis due to Esche richia coli (Primary Dx); Excessive body weight loss; Need for vaccination; Infection in abdomen (HCC); Other elevated white blood cell (WBC) count; Neck pain; Dilated intrahepatic bile duct; Vitamin B12 deficiency; Vitamin D deficiency; Iron deficiency Start: 03-21-2025 End: 03-21-2025 [facility] Facility:[facility] Start: 03-19-2025 End: 03-19-2025 [facility] Facility:[facility] Start: 03-02-2025 End: 03-02-2025 ambulatory Martha Funk [employer] Work Phone: [facility] [place] Comment on above: [place] Start: 02-25-2025 End: 03-03-2025 Refill Martha Funk [employer] Work Phone: [facility] Comment on above: Refill Request Start: 02-17-2025 End: 02-17-2025 Follow-up encounter Martha Funk APRN.[employer] Work Phone: [facility] [place] Start: 02-16-2025 End: 02-16-2025 [facility] Start: 02-16-2025 End: 02-16-2025 Office outpatient visit 25 minutes Martha Older [employer] Work Phone: [facility] [place] Comment on above: Weakness (Primary Dx ); Leukocytosis, unspecified type; Hematuria, unspecified type; Proteinuria, unspecified type; Thrombocytosis; Decreased appetite; Other fatigue; Medication management; Hypothyroidism, unspecified type; Acute colitis; Dehydration Start: 02-16-2025 End: 02-16-2025 [facility] Facility:[facility] Start: 02-14-2025 End: 02-14-2025 Emergency department patient visit Dr. Russ Barone MD Work Phone: -Emergency Department Work Phone: Start: 02-10-2025 End: 02-10-2025 Emergency department patient visit Dr. Russ Barone MD Work Phone: -Emergency Department Work Phone: Start: 02-09-2025 End: 02-09-2025 [facility] Facility:[facility] Start: 12-08-2024 End: 12-09-2024 Refill Russ Barone MD Work Phone: [facility] [place] Comment on above: Refill Request Start: 10-18-2024 End: 10-20-2024 Refill Martha Older [employer] Work Phone: [facility] [place] Comment on above: Refill Request Start: 09-24-2024 End: 09-24-2024 Refill Martha Older [employer] Work Phone: [facility] [place] Comment on above: Refill Request Start: 09-23-2024 End: 09-23-2024 Refill Martha Older [employer] Work Phone: [facility] [place] Comment on above: Refill Request Start: 09-14-2024 End: 09-14-2024 [facility] Facility:[facility] Start: 09-14-2024 End: 09-14-2024 Office outpatient visit 25 minutes Russ Barone MD Work Phone: [facility] [place] Comment on above: Medicare annual well ness visit, subsequent (Primary Dx); Encounter for immunization; Arthritis of carpometacarpal (CMC) joint of right thumb; Medication management; Hypothyroidism, unspecified type; Essential hypertension, benign Start: 09-14-2024 End: 09-14-2024 Patient encounter procedure Russ Barone MD Work Phone: [facility] Start: 09-10-2024 End: 11-10-2024 Follow-up encounter Martha Funk APRN.[employer] Work Phone: Family [facility] [place] Start: 09-08-2024 End: 09-08-2024 ambulatory MARTHALisa FUNK Facility:[facility] Start: 09-08-2024 Patient encounter procedure MARTHA FUNK [facility] Start: 08-28-2024 End: 09-01-2024 Refill Vanessa Andrews TESTING [employer]ING SHIPPINGDaryaROUND [employer] HAND Work Phone: [facility] Comment on above: Refill Request Start: 05-05-2024 End: 05-05-2024 Patient encounter procedure [facility] [place] Work Phone: [facility] [place] Start: 05-05-2024 End: 05-05-2024 ambulatory [facility] [place] Work Phone: [facility] [place] Start: 04-28-2024 [facility] Start: 04-28-2024 End: 04-29-2024 Telephone encounter Russ Barone MD Work Phone: [facility] [place] Comment on above: Orders; Immunization s (Flu vaccination) Start: 04-07-2024 End: 04-07-2024 ambulatory Martha Funk APRN.[employer] Work Phone: [facility] [place] Comment on above: Flu shot Start: 03-19-2024 End: 03-22-2024 Telephone encounter Martha Funk APRN.[employer] Work Phone: [facility] [place] Comment on above: Results Start: 03-18-2024 End: 03-18-2024 Patient encounter procedure Martha Funk APRN.[employer] Work Phone: [facility] [place] Comment on above: Essential hypertensi on, benign (Primary Dx); Hypothyroidism, unspecified type; Herpes zoster without complication; Annual physical exam Start: 03-06-2024 End: 03-06-2024 Telephone encounter Stephaniedustin García PUMA.[facility] Work Phone: [facility] Comment on above: Results Start: 03-05-2024 End: 03-05-2024 Patient encounter procedure Stephanie García [employer].[facility] Work Phone: [facility] Comment on above: Oral lesion (Primary Dx); Left ear pain Start: 03-03-2024 End: 03-03-2024 Refill Manasa Menchaca APRN.[facility] Work Phone: [facility] Comment on above: Refill Request Hives (Primary Dx) Start: 09-17-2023 End: 09-17-2023 Patient encounter procedure Martha Funk APRN.[facility] Work Phone: [facility] [place] Comment on above: Medicare annual [facility], subsequent (Primary Dx); Hypothyroidism, unspecified type; Essential hypertension, benign; Mixed hyperlipidemia; Medication management Start: 09-03-2023 Refill Martha Funk APRN .[facility] Work Phone: [facility] Comment on above: Refill Request Start: 03-19-2023 End: 03-19-2023 Patient encounter procedure Martha Funk APRN.[facility] Work Phone: [facility] [place] Comment on above: Essential hypertensi on, benign (Primary Dx); Mixed hyperlipidemia; Hypothyroidism, unspecified type; Need for influenza vaccination; Annual physical exam Start: 03-18-2023 Telephone encounter Sara Flores APRN.[facility] Work Phone: [facility] Comment on above: Results Start: 03-05-2023 Get Medical Advice Jarocho Antonio MD Work Phone: [facility] Comment on above: refill Losartan Start: 09-16-2022 End: 09-16-2022 Patient encounter procedure Russ Barone MD Work Phone: [facility] [place] Comment on above: Elevated MCV (Primar y Dx); Hypothyroidism, unspecified type; Essential hypertension, benign; Mixed hyperlipidemia Start: 09-14-2022 Telephone encounter Russ rodriguez MD Work Phone: [facility] [place] Comment on above: Results Start: 03-18-2022 End: 03-18-2022 Patient encounter procedure Russ Barone MD Work Phone: [facility] [place] Comment on above: Essential hypertensi on, benign (Primary Dx); Need for influenza vaccination; Mixed hyperlipidemia; Hypothyroidism, unspecified type; Elevated blood sugar Start: 03-05-2022 ambulatory Russ Santiago Work Phone: Internal Medicine [facility] Start: 10-04-2021 Refill Cedric MCP[employer] Work Phone: [facility] [place] Comment on above: Refill Request Procedures Date Procedure Procedure Detail Performing Clinician Start: 02-16-2025 Urnls dip stick/tabl et rgnt auto w/o microscopy Martha Funk [employer] Work Phone: Start: 02-14-[address] Russ [...] YR, QUADRIVALENT (AFLURIA, FLULAVAL, FLUZONE) Martha Funk [employer] Work Phone: Start: 03-18-2022 INFLUENZA VACCINE QUADRIVALENT 6 MO - 64 YRS IM Russ Barone MD Work Phone: Plan of Treatment Date Care Activity Detail Author Start: 03-21-2028 Diabetes Screening Diabetes Screenin [facility] Start: 02-17-2028 Diabetes Screening Diabetes Screenin g [facility] Start: 09-09-2027 Diabetes Screening Diabetes Screenin g [facility] Start: 03-18-2027 Diabetes Screening Diabetes Screenin g [facility] Start: 09-09-2026 Diabetes Screening Diabetes Screenin g [facility] Start: 09-11-2025 DIABETES SCREEN DIABETES SCREEN [facility] Start: 09-11-2025 Diabetes Screening Diabetes Screenin g [facility] Start: 04-13-2025 End: 04-13-2025 Patient encounter procedure 04/13/2025 10:00 AM EDT Office Visit [facility] [place] [address] [place], [place] [id number] Russ Barone MD [address] [place], [place] [phone] follow up for ct/ultrasound [facility] [place] Comment on above: follow up for ct/ult rasound Start: 04-07-2025 End: 04-07-2025 ambulatory 04/07/2025 10:00 AM EDT OT/PT/Speech Visit [facility] [address] [place], [place] [phone] Justin Ohara, PT [address] [place] [address] : Neck pain [M54.2] [facility] Comment on above: : Neck pain [M54.2] Start: 04-06-2025 End: 04-06-2025 Patient encounter procedure Cat Scan Comment on above: x: Infection in abdo men (HCC) [K65.9]; Other elevated white blood cell (WBC) count [D72.828] Start: 03-24-2025 End: 03-24-2025 Patient encounter procedure 03/24/2025 9:15 AM EDT Appointment Rad[facility] [address] [facility] [place], [place] [phone] : Dilated intrahepatic bile d Radiology Comment on above: : Dilated intrahepat ic bile d Start: 03-21-2025 End: 03-21-2025 Patient encounter procedure 03/21/2025 9:00 AM EDT Office Visit [facility] [place] [address] [place] [address] Russ Barone MD [address] [place] [address] 6 month follow up [facility] [place] Comment on above: 6 month follow up Start: 03-19-2025 End: 06-17-2025 Thyrotropin [Units/volume] in Serum or Plasma THYROID STIMULATING HORMONE Lab Routine Medication management Hypothyroidism, unspecified type Expected: 03/19/2025 (Approximate), Expires: 06/17/2025 [facility] Work Phone: Comment on above: Expected: 03/19/2025 (Approximate), Expires: 06/17/2025 Start: 03-19-2025 End: 06-17-2025 Thyroxine (T4) free [Mass/volume] in Serum or Plasma T4 FREE/FREE THYROXINE Lab Routine Medication management Hypothyroidism, unspecified type Expected: 03/19/2025 (Approximate), Expires: 06/17/2025 [facility] Comment on above: Expected: 03/19/2025 (Approximate), Expires: 06/17/2025 Start: 03-18-2025 Covid-19 Vaccine ( season) Covid-19 Vaccine ( season) [facility] Comment on above: Postponed from 03/07 (Declined at this time) Start: 03-18-2025 Covid-19 Vaccine ( season) Covid-19 Vaccine ( season) [facility] Comment on above: Postponed from 03/07 (Declined at this time) Start: 03-07-2025 Influenza vaccination Influenza Vacc ine (#1) [facility] Start: 02-14-2025 [facility] Start: 02-10-2025 [facility] Start: 01-03-2025 Influenza vaccination Influenza Vacc ine (#1) [facility] Comment on above: Postponed from 03/07 (Declined at this time) Start: 09-16-2024 RSV Vaccine (1 - 1-d ose 60+ series) RSV Vaccine (1 - 1-dose 60+ series) [facility] Comment on above: Postponed from 08/12 (Declined at this time) Start: 09-16-2024 RSV Vaccine (1 - 1-d ose 75+ series) RSV Vaccine (1 - 1-dose 75+ series) [facility] Comment on above: Postponed from 08/12 (Declined at this time) Start: 09-14-2024 End: 09-14-2024 Patient encounter procedure 09/14/2024 8:00 AM EDT Office Visit [facility] [place] [address] [facility] [place] [address] Russ Barone MD [address] [place] [address] Medicare Wellness [facility] [place] Comment on above: Medicare Wellness Start: 09-10-2024 DIABETES SCREEN DIABETES SCREEN [facility] Start: 09-08-2024 End: 09-08-2024 ambulatory 09/08/2024 8:45 AM EST Results Only [facility] [address] [facility] [place] [address] [facility] Start: 09-06-2024 End: 12-06-2024 CBC panel - Blood by Automated count COMPLETE BLOOD COUNT Lab Routine Annual physical exam Expected: 09/06/2024 (Approximate), Expires: 12/06/2024 [facility] Comment on above: Expected: 09/06/2024 (Approximate), Expires: 12/06/2024 Start: 09-06-2024 End: 12-06-2024 Comprehensive metabolic 2000 panel - Serum or Plasma COMPREHENSIVE METABOLIC PANEL Lab Routine Annual physical exam Expected: 09/06/2024 (Approximate), Expires: 12/06/2024 [facility] Comment on above: Expected: 09/06/2024 (Approximate), Expires: 12/06/2024 Start: 09-06-2024 End: 12-06-2024 Lipid 1996 panel - Serum or Plasma LIPID PANEL BASIC Lab Routine Annual physical exam Expected: 09/06/2024 (Approximate), Expires: 12/06/2024 [facility] Comment on above: Expected: 09/06/2024 (Approximate), Expires: 12/06/2024 Start: 09-06-2024 End: 12-06-2024 Thyrotropin [Units/volume] in Serum or Plasma THYROID STIMULATING HORMONE Lab Routine Hypothyroidism, unspecified type Expected: 09/06/2024 (Approximate), Expires: 12/06/2024 [facility] Comment on above: Expected: 09/06/2024 (Approximate), Expires: 12/06/2024 Start: 05-05-2024 End: 05-05-2024 Patient encounter procedure 05/05/2024 3:20 PM EDT Immunization [facility] [place] [address] [place], [place] [phone] [place], Immun[facility] Clinic Nurse [address] [facility], [place] [id number] Flu vaccine (regular dose) [facility] [place] Comment on above: Flu vaccine (regular dose) Start: 03-19-2024 Covid-19 Vaccine (2022- season) Covid-19 Vaccine ( - 2022- season) [facility] Comment on above: Postponed from 03/07 (Declined at this time) Start: 03-19-2024 Covid-19 Vaccine (6 - Moderna series) Covid-19 Vaccine (6 - Moderna series) [facility] Comment on above: Postponed from 08/26 (Declined at this time) Start: 03-19-2024 Shingrix Vaccine (2 of 3) Núñez grix Vaccine (2 of 3) [facility] Comment on above: Postponed from 06/13 (Declined at this time) Start: 03-19-2024 Urine microalbumin profile DTa P,Tdap,Td Vaccine (1 - Tdap) [facility] Comment on above: Postponed from 04/09 (Declined at this time) Start: 03-18-2024 End: 06-17-2024 Basic metabolic 2000 panel - Serum or Plasma [facility] Comment on above: Expected: 03/18/2024 , Expires: 06/17/2024 Start: 03-18-2024 End: 06-17-2024 Thyrotropin [Units/volume] in Serum or Plasma [facility] Work Phone: Comment on above: Expected: 03/18/2024 , Expires: 06/17/2024 Start: 03-18-2024 End: 06-17-2024 Thyroxine (T4) free [Mass/volume] in Serum or Plasma [facility] Comment on above: Expected: 03/18/2024 , Expires: 06/17/2024 Start: 03-18-2024 End: 06-17-2024 Triiodothyronine (T3) Free [Mass/volume] in Serum or Plasma [facility] Comment on above: Expected: 03/18/2024 , Expires: 06/17/2024 Start: 03-18-2024 End: 03-18-2024 Patient encounter procedure 03/18/2024 8:00 AM EDT Office Visit [facility] [place] [address] [place], [place] [phone] Martha Funk APRN.[employer] [address] [place], [place] [phone] 6 month follow up [facility] [place] Comment on above: 6 month follow up Start: 03-07-2024 Influenza vaccination Influenza Vacc ine (#1) [facility] Start: 03-05-2024 End: 06-04-2024 Herpes simplex virus+Varicella zoster virus DNA [Presence] in Unspecified specimen by PRABHJOT with probe detection HSV1,2/VZV NAAT LESION Lab Routine Oral lesion Expected: 03/05/2024, Expires: 06/04/2024 [facility] Work Phone: Comment on above: Expected: 03/05/2024 , Expires: 06/04/2024 Start: 10-18-2023 End: 01-17-2024 Thyrotropin [Units/volume] in Serum or Plasma TSH BLD Lab Routine Hypothyroidism, unspecified type Medication management Expected: 10/18/2023 (Approximate), Expires: 01/17/2024 [facility] Work Phone: Comment on above: Expected: 10/18/2023 (Approximate), Expires: 01/17/2024 Start: 10-18-2023 End: 01-17-2024 Thyroxine (T4) free [Mass/volume] in Serum or Plasma T4 FREE/FREE THYROX Lab Routine Hypothyroidism, unspecified type Medication management Expected: 10/18/2023 (Approximate), Expires: 01/17/2024 [facility] Work Phone: Comment on above: Expected: 10/18/2023 (Approximate), Expires: 01/17/2024 Start: 09-09-2023 End: 11-09-2023 CBC panel - Blood by Automated count CBC Lab Routine Annual physical exam Essential hypertension, benign Expected: 09/09/2023 (Approximate), Expires: 11/09/2023 [facility] Work Phone: Comment on above: Expected: 09/09/2023 (Approximate), Expires: 11/09/2023 Start: 09-09-2023 End: 11-09-2023 Comprehensive metabolic 2000 panel - Serum or Plasma COMP METABOLIC PANEL Lab Routine Annual physical exam Essential hypertension, benign Mixed hyperlipidemia Expected: 09/09/2023 (Approximate), Expires: 11/09/2023 [facility] Work Phone: Comment on above: Expected: 09/09/2023 (Approximate), Expires: 11/09/2023 Start: 09-09-2023 End: 11-09-2023 Lipid 1996 panel - Serum or Plasma LIPID PANEL BASIC Lab Routine Annual physical exam Mixed hyperlipidemia Expected: 09/09/2023 (Approximate), Expires: 11/09/2023 [facility] Work Phone: Comment on above: Expected: 09/09/2023 (Approximate), Expires: 11/09/2023 Start: 09-09-2023 End: 11-09-2023 Thyrotropin [Units/volume] in Serum or Plasma TSH BLD Lab Routine Annual physical exam Hypothyroidism, unspecified type Expected: 09/09/2023 (Approximate), Expires: 11/09/2023 [facility] Work Phone: Comment on above: Expected: 09/09/2023 (Approximate), Expires: 11/09/2023 Start: 03-07-2023 Influenza vaccination INFLUENZA (#1) [facility] Start: 09-16-2022 End: 11-16-2022 Cobalamin (Vitamin B12) [Mass/volume] in Serum or Plasma VITAMIN B12 BLOOD Lab Routine Elevated MCV Expected: 09/16/2022, Expires: 11/16/2022 [facility] Work Phone: Comment on above: Expected: 09/16/2022 , Expires: 11/16/2022 Start: 09-16-2022 End: 11-16-2022 Thyrotropin [Units/volume] in Serum or Plasma TSH BLD Lab Routine Hypothyroidism, unspecified type Expected: 09/16/2022, Expires: 11/16/2022 [facility] Work Phone: Comment on above: Expected: 09/16/2022 , Expires: 11/16/2022 Start: 09-15-2022 End: 11-15-2022 CBC W Auto Differential panel - Blood CBC + DIFF Lab Routine Essential hypertension, benign Expected: 09/15/2022, Expires: 11/15/2022 [facility] Work Phone: Comment on above: Expected: 09/15/2022 , Expires: 11/15/2022 Start: 09-15-2022 End: 11-15-2022 Comprehensive metabolic 2000 panel - Serum or Plasma COMP METABOLIC PANEL Lab Routine Essential hypertension, benign Expected: 09/15/2022, Expires: 11/15/2022 [facility] Work Phone: Comment on above: Expected: 09/15/2022 , Expires: 11/15/2022 Start: 09-15-2022 End: 11-15-2022 Lipid 1996 panel - Serum or Plasma LIPID PANEL BASIC Lab Routine Essential hypertension, benign Expected: 09/15/2022, Expires: 11/15/2022 [facility] Work Phone: Comment on above: Expected: 09/15/2022 , Expires: 11/15/2022 Start: 08-26-2022 COVID-19 VACCINE (6 - Moderna series) COVID-19 VACCINE (6 - Moderna series) [facility] Start: 03-07-2022 Influenza vaccination INFLUENZA (#1) [facility] Start: 03-05-2022 End: 05-05-2022 SCHEDULE LAB TESTING SCHEDULE LAB TESTING Lab Routine Expected: 03/05/2022, Expires: 05/05/2022 [facility] Work Phone: Comment on above: Expected: 03/05/2022 , Expires: 05/05/2022 Start: 03-05-2022 End: 05-05-2022 Thyrotropin [Units/volume] in Serum or Plasma TSH BLD Lab Routine Hypothyroidism Expected: 03/05/2022, Expires: 05/05/2022 [facility] Work Phone: Comment on above: Expected: 03/05/2022 , Expires: 05/05/2022 Start: 09-03-2021 COVID-19 VACCINE (4 - Booster for Moderna series) COVID-19 VACCINE (4 - Booster for Moderna series) [facility] Start: 2013 RSV Vaccine (1 - 1-d ose 75+ series) RSV Vaccine (1 - 1-dose 75+ series) [facility] Start: 06-13-2011 SHINGRIX VACCINE (2 of 3) NÚÑEZ GRIX VACCINE (2 of 3) [facility] Start: 04-09-2006 Urine microalbumin profile [facility] Start: 1998 RSV Vaccine (1 - 1-d ose 60+ series) RSV Vaccine (1 - 1-dose 60+ series) [facility] Start: 1956 Anxiety Screening Anxiety Screening [facility] End: 04-20-2026 CT Abdomen and Pelvis W contrast IV CT ABD/PEL W IVCON Radiology Routine Infection in abdomen (HCC) Other elevated white blood cell (WBC) count 1 Occurrences starting 03/21/2025 until 04/20/2026 [facility] Work Phone: Comment on above: 1 Occurrences starti ng 03/21/2025 until 04/20/2026 Iiv3 vaccine split v irus 0.5 ml dosage im use INFLUENZA VACCINE, AGE 6MO-64YR, TRIVALENT (AFLURIA, FLULAVAL, FLUVIRIN, FLUZONE) Immunization/Injection Routine Need for influenza vaccination Ordered: 04/28/2024 [facility] Work Phone: Comment on above: Ordered: 04/28/2024 Microscopic urinalysis [facility] Organism count, microscopic method [facility] Patient Education [facility] Work Phone: Urinalysis complete panel - Urine URINALYSIS (WITH MICROSCOPIC) WITH CULTURE IF INDICATED Lab Routine Hematuria, unspecified type Proteinuria, unspecified type 02/16/2025 2:48 PM EDT [facility] Urine microscopy: epithelial cells [facility] Urine microscopy: re d cells [facility] End: 04-20-2026 US Abdomen RUQ US ABD RIGHT UPPER QUADRANT Radiology Routine Dilated intrahepatic bile duct 1 Occurrences starting 03/21/2025 until 04/20/2026 [facility] Comment on above: 1 Occurrences starti ng 03/21/2025 until 04/20/2026 White blood cell count [facility] End: 04-20-2026 XR Cervical spine AP and Lateral and oblique XR CERV OTHER 4V AP/LAT/OBL Radiology Routine Neck pain 1 Occurrences starting 03/21/2025 until 04/20/2026 [facility] Comment on above: 1 Occurrences starti ng 03/21/2025 until 04/20/2026 XR Cervical spine AP and Lateral and oblique XR CERV OTHER 4V AP/LAT/OBL Radiology Routine Neck pain 03/21/2025 10:44 AM EDT [facility] Immunizations Immunization Date Immunization Notes Care Provider [facility] 05-05-2024 influenza, seasonal, injectable Immunization [place] Work Phone: [facility] 05-05-2024 influenza virus vaccine, unspecified formulation Martha Funk [employer] Work Phone: [facility] 03-19-2023 influenza, injectabl e, quadrivalent, contains preservative Martha Funk [employer] Work Phone: [facility] 03-19-2023 influenza virus vaccine, unspecified formulation Manasa Menchaca [employer] Work Phone: [facility] 03-18-2022 influenza, injectabl e, quadrivalent, contains preservative Russ Barone MD Work Phone: [facility] Work Phone: 03-29-2021 influenza, high dose seasonal, preservative-free Cedric Stout [employer] Work Phone: [facility] 08-24-2020 COVID-19 vaccine, fu ll dose (MODERNA) Cedric Stout [employer] Work Phone: [facility] 07-27-2020 COVID-19 vaccine, fu ll dose (MODERNA) Cedric Stout [employer] Work Phone: [facility] 03-14-2020 influenza, high dose seasonal, preservative-free Cedric Stout [employer] Work Phone: [facility] Work Phone: 04-11-2018 influenza, injectabl e, quadrivalent, contains preservative Cedric Stout [employer] Work Phone: [facility] 03-24-2017 influenza, high dose seasonal, preservative-free Cedric Stout [employer] Work Phone: [facility] 05-06-2016 pneumococcal conjuga te vaccine, 13 valent Cedric Stout [employer] Work Phone: [facility] Work Phone: 03-22-2016 influenza, high dose seasonal, preservative-free Cedric Stout [employer] Work Phone: [facility] 05-09-2015 influenza, high dose seasonal, preservative-free Cedric Stout [employer] Work Phone: [facility] Work Phone: 05-16-2012 influenza virus vaccine, unspecified formulation Cedric Stout [employer] Work Phone: [facility] Work Phone: 04-18-2011 zoster vaccine, live Cedric rojo [employer] Work Phone: [facility] 05-05-2007 influenza virus vaccine, unspecified formulation Cedric Stout [employer] Work Phone: [facility] Work Phone: 04-08-2006 tetanus and diphther ia toxoids, adsorbed, preservative free, for adult use (2 Lf of tetanus toxoid and 2 Lf of diphtheria toxoid) Cedric Stout APRN.[facility] Work Phone: [facility] Work Phone: 05-16-2005 influenza virus vaccine, unspecified formulation Cedric Stout APRN.[facility] Work Phone: [facility] Work Phone: 11-13-2003 pneumococcal polysaccharide vaccine, 23 valent Cedric Stout APRN.[facility] Work Phone: [facility] Work Phone: 04-03-1998 pneumococcal polysaccharide vaccine, 23 valent Cedric Stout APRN.[facility] Work Phone: [facility] Work Phone: 10-19-1996 tetanus and diphther ia toxoids, adsorbed, preservative free, for adult use (2 Lf of tetanus toxoid and 2 Lf of diphtheria toxoid) Cedric Stout APRN.[facility] Work Phone: [facility] Work Phone: 09-15-1972 tetanus and diphther ia toxoids, adsorbed, preservative free, for adult use (2 Lf of tetanus toxoid and 2 Lf of diphtheria toxoid) Cedric Stout APRN.[facility] Work Phone: [facility] Work Phone: Payers Date Payer Category Payer Self-pay 2014 Medicare (Managed Care) PRIMETIM E [id number] 2014 Unknown PRIMETIME [employer] HMO POS [id number] 2014-Present [phone] [address] [place] [address] O [id number] 2014 Unknown [id number] 2014 Unknown [id number] Medicare Unknown [id number] Unknown [id number] Unknown [id number] Social History Date Type Detail Facility Start: 04-18-2011 End: 02-14-2025 Tobacco smoking status NHIS Never smoked tobacco [facility] Start: 09-12-2021 End: 03-21-2025 Alcohol intake Current non-drinker of alcohol (finding) [facility] Start: 09-05-2021 End: 09-09-2022 History SDOH Alcohol Frequency 1 [facility] Start: 09-05-2021 End: 09-09-2022 History SDOH Alcohol Std Drinks 98 [facility] Start: 09-05-2021 End: 09-09-2022 History SDOH Social Connections Phone 4 [facility] Start: 09-05-2021 End: 09-09-2022 History SDOH Social Connections Membership 2 [facility] Start: 09-05-2021 End: 09-09-2022 History SDOH Social Connections Living 5 [facility] Start: 09-05-2021 End: 09-09-2022 History SDOH Physical Activity MPS 3 [facility] Start: 11-25-2019 Education 12 [facility] Start: 1940 Sex Assigned At Female C [facility] Start: 08-13-2021 End: 03-18-2022 Exposure to SARS-CoV-2 (event) Not sure [facility] Start: 04-18-2011 Tobacco use and exposure Smoke less tobacco non-user [facility] Start: 09-09-2022 History SDOH Alcohol Std Drinks 0 [facility] Start: 09-09-2022 End: 09-10-2023 History of Social function [facility] Start: 09-09-2022 End: 09-10-2023 Social connection and isolation panel [facility] Start: 06-07-2012 How often do you att end evangelical or judaism services? Patient refused [facility] Do you belong to any clubs or organizations such as evangelical groups, unions, [employer] or athletic groups, or school groups? Yes [facility] Are you now , , , , never or living with a partner? [facility] How often to you hav e a drink containing alcohol? Never [facility] Do you feel stress - tense, restless, nervous, or anxious, or unable to sleep at night because your mind is troubled all the time - these days [OSQ] Not at all [facility] (I/We) worried wheth er (my/our) food would run out before (I/we) got money to buy more. Never true [facility] In the past 12 month s, was there a time when you were not able to pay the mortgage or rent on time? No [facility] Start: 03-02-2020 Gender identity Identifies as female gender (finding) [facility] Start: 03-02-2020 Sexual orientation Heterosexual (fanny hernandez) [facility] Functional Status Date Assessment Result Facility 11-01-2014 Are you deaf, or do you have serious difficulty hearing No 11/01/2014 3:20 PM Alaina Adkins LPN No [facility] 11-01-2014 Are you blind, or do you have serious difficulty seeing, even when wearing glasses No 11/01/2014 3:20 PM Alaina Adkins LPN No [facility] 11-01-2014 Do you have serious difficulty walking or climbing stairs Yes 11/01/2014 3:20 PM Alaina Adkins LPN Yes [facility] 11-01-2014 Do you have difficul ty dressing or bathing No 11/01/2014 3:20 PM Alaina Adkins LPN No [facility] 11-01-2014 Because of a physica l, mental, or emotional condition, do you have difficulty doing errands alone such as visiting a physician's office or shopping No 11/01/2014 3:20 PM EDT Alaina Whaley LPN No [facility] Mental Status Date Assessment Result Facility 02-14-2025 Cognitive function Level Of Cons ciousness Awake;Alert;Appropriate;Fol lows Commands [facility] Work Phone: 11-01-2014 Because of a physica l, mental, or emotional condition, do you have serious difficulty concentrating, remembering, or making decisions No 11/01/2014 3:20 PM EDT Alaina Whaley LPN No [facility] Clinical Notes 10-04-2021 to 03-21-2025 Addendum Note - Russ Barone MD - 03/21/2025 4:54 PM EDTAddendum Note - Russ Barone MD - 03/21/2025 4:54 PM EDTGRuss brantley MD - 03/21/2025 1:05 PM EDTPatient InstructionsPatient Instructions Note Date & Type Note Facility 03-21-2025 Note Addended by: RUSS BARONE on: 03/21/2025 04:54 PM Modules accepted: Orders [facility] 03-21-2025 Miscellaneous Notes Addended by: RUSS BARONE on: 03/21/2025 04:54 PM Modules accepted: Orders documented in this encounter [facility] 03-21-2025 Note HNO ID: [id number] Author: RUSS BARONE MD Service: ? Author Type: Physician Type: Progress Notes Filed: 03/21/2025 13:06 Note Text: Reason for Visit Follow up issues HPI Marianela Rios is an 84-year-old female, with a history of significant weight loss and neck pain, presenting for follow-up. Marianela reports a 14 lb weight loss over the past 3 months, with the majority occurring within a 2-4 week period when she was bedridden due to illness. Her current weight is 93 lbs, down from her usual 105-109 lbs. She notes that her weight has stabilized over the past 2 weeks, and she has even gained a small amount. Despite eating more than usual, she finds it difficult to gain weight and feels full relatively quickly. Her diet includes an oatmeal breakfast bar, orange juice, coffee, an egg for breakfast, cheese, crackers, and fruit for lunch, and Lean Cuisine meals or small portions of meatloaf or ham loaf for dinner. She has also added snacks like potato chips, popcorn, and cookies to her diet. Marianela reports persistent fatigue and low energy levels, stating that activities that were previously easy now leave her exhausted. She also reports significant neck pain, which she describes as "almost debilitating." She has been taking meloxicam, which was effective for 6-7 weeks but has since become less effective. She also takes 2 8-hour Tylenol in the morning and 2 Tylenol at night. The pain is only relieved when she is lying down with pillows behind her neck. Marianela's illness began with 3 days of diarrhea, after which she was advised to go to the emergency room due to dehydration. A CT scan and blood work revealed an intestinal infection, and she was prescribed 2 antibiotics. She had a bad reaction to the antibiotics, resulting in emesis, and returned to the emergency room for another IV. She was then prescribed a different antibiotic, which she tolerated well and completed the course. She reports no current diarrhea, abdominal discomfort, or sensitivity to food. She has an appointment with a park naturalist at the end of April. A recent CT scan revealed a small hiatal hernia, diffuse wall thickening of the sigmoid colon and rectum with fat stranding, no obstruction or perforation, moderate colonic stool, large bowel interposed between the liver and anterior abdominal wall, multiple small left periaortic nodes, and dilated bile ducts. Marianela also reports that her thyroid levels have returned to normal after a recent adjustment to her medication. SOCIAL HISTORY[1] Past medical history, appointments, medications, allergies reviewed. Pertinent Lab/Diagnostic Studies are reviewed and discussed today Current Outpatient Medications: losartan (COZAAR) 25 mg tablet meloxicam (MOBIC) 15 mg tablet levothyroxine (LEVOXYL) 100 mcg tablet simvastatin (ZOCOR) 10 mg tablet atenolol (TENORMIN) 50 mg tablet hydroCHLOROthiazide 12.5 mg capsule Cetirizine (ZYRTEC) 10 mg ORAL Cap THERAPEUTIC MULTIVITAMIN ORAL TAB ASPIRIN 81 MG ORAL TAB iv contrast (will be provided with radiology test) enteric contrast (will be provided with radiology test) Health Maintenance Anxiety Screening DTaP,Tdap,Td Vaccine(1 - Tdap) RSV Vaccine(1 - 1-dose 75+ series) Influenza Vaccine(1)@ Review Of Systems Constitutional: (+) fatigue, (+) unintentional weight loss Neck: (+) neck pain Gastrointestinal: (+) early satiety, (-) diarrhea, (-) abdominal pain Physical Exam BP 117/72 Pulse 92 Resp 16 Wt 42.2 kg (93 lb) BMI 18.75 kg/m? GENERAL: NAD, alert and oriented. SKIN: Unremarkable, no rash or skin lesions. HEAD: Normocephalic. EYES: PERRLA, EOMI, conjunctiva clear. LUNGS: Clear to auscultation bilaterally, no wheezes/rhonchi/rales. HEART: Regular rate and rhythm, no murmurs. No ectopy. EXTREMITIES: Normal, no deformities, no skin discoloration, no edema. ABDOMEN: Soft, non-tender, no rigidity, no masses palpated. Bowel sounds normal. NEURO: Awake, alert and oriented x3, cranial nerves II-XII grossly intact, normal gait, no involuntary motions. 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 Colitis due to Escherichia coli (A04.4) 2. Excessive body weight loss (R63.4) 3. Infection in abdomen (HCC) (K65.9) 4. Other elevated white blood cell (WBC) count (D72.828) 5. Dilated intrahepatic bile duct (K83.8) Recent history of acute diarrheal illness with significant weight loss (14 lbs over 3 months, now 93 lbs), initially attribut (more content not included)... [facility] 03-21-2025 History of Present illness Narrative Reason for Visit Follow up issues HPI Marianela Rios is an 84-year-old female, with a history of significant weight loss and neck pain, presenting for follow-up. Marianela reports a 14 lb weight loss over the past 3 months, with the majority occurring within a 2-4 week period when she was bedridden due to illness. Her current weight is 93 lbs, down from her usual 105-109 lbs. She notes that her weight has stabilized over the past 2 weeks, and she has even gained a small amount. Despite eating more than usual, she finds it difficult to gain weight and feels full relatively quickly. Her diet includes an oatmeal breakfast bar, orange juice, coffee, an egg for breakfast, cheese, crackers, and fruit for lunch, and Lean Cuisine meals or small portions of meatloaf or ham loaf for dinner. She has also added snacks like potato chips, popcorn, and cookies to her diet. Marianela reports persistent fatigue and low energy levels, stating that activities that were previously easy now leave her exhausted. She also reports significant neck pain, which she describes as "almost debilitating." She has been taking meloxicam, which was effective for 6-7 weeks but has since become less effective. She also takes 2 8-hour Tylenol in the morning and 2 Tylenol at night. The pain is only relieved when she is lying down with pillows behind her neck. Marianela's illness began with 3 days of diarrhea, after which she was advised to go to the emergency room due to dehydration. A CT scan and blood work revealed an intestinal infection, and she was prescribed 2 antibiotics. She had a bad reaction to the antibiotics, resulting in emesis, and returned to the emergency room for another IV. She was then prescribed a different antibiotic, which she tolerated well and completed the course. She reports no current diarrhea, abdominal discomfort, or sensitivity to food. She has an appointment with a park naturalist at the end of April. A recent CT scan revealed a small hiatal hernia, diffuse wall thickening of the sigmoid colon and rectum with fat stranding, no obstruction or perforation, moderate colonic stool, large bowel interposed between the liver and anterior abdominal wall, multiple small left periaortic nodes, and dilated bile ducts. Marianela also reports that her thyroid levels have returned to normal after a recent adjustment to her medication. SOCIAL HISTORY[1] Past medical history, appointments, medications, allergies reviewed. Pertinent Lab/Diagnostic Studies are reviewed and discussed today Current Outpatient Medications: losartan (COZAAR) 25 mg tablet meloxicam (MOBIC) 15 mg tablet levothyroxine (LEVOXYL) 100 mcg tablet simvastatin (ZOCOR) 10 mg tablet atenolol (TENORMIN) 50 mg tablet hydroCHLOROthiazide 12.5 mg capsule Cetirizine (ZYRTEC) 10 mg ORAL Cap THERAPEUTIC MULTIVITAMIN ORAL TAB ASPIRIN 81 MG ORAL TAB iv contrast (will be provided with radiology test) enteric contrast (will be provided with radiology test) Health Maintenance Anxiety Screening DTaP,Tdap,Td Vaccine(1 - Tdap) RSV Vaccine(1 - 1-dose 75+ series) Influenza Vaccine(1)@ Review Of Systems Constitutional: (+) fatigue, (+) unintentional weight loss Neck: (+) neck pain Gastrointestinal: (+) early satiety, (-) diarrhea, (-) abdominal pain Physical Exam BP 117/72 Pulse 92 Resp 16 Wt 42.2 kg (93 lb) BMI 18.75 kg/m GENERAL: NAD, alert and oriented. SKIN: Unremarkable, no rash or skin lesions. HEAD: Normocephalic. EYES: PERRLA, EOMI, conjunctiva clear. LUNGS: Clear to auscultation bilaterally, no wheezes/rhonchi/rales. HEART: Regular rate and rhythm, no murmurs. No ectopy. EXTREMITIES: Normal, no deformities, no skin discoloration, no edema. ABDOMEN: Soft, non-tender, no rigidity, no masses palpated. Bowel sounds normal. NEURO: Awake, alert and oriented x3, cranial nerves II-XII grossly intact, normal gait, no involuntary motions. 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 Colitis due to Escherichia coli (A04.4) 2. Excessive body weight loss (R63.4) 3. Infection in abdomen (HCC) (K65.9) 4. Other elevated white blood cell (WBC) count (D72.828) 5. Dilated intrahepatic bile duct (K83.8) Recent history of acute diarrheal illness with significant weight loss (14 lbs over 3 months, now 93 lbs), initially attributed to colitis with E. coli infection. CT scan revealed diffuse wall thickening of the sigmoid colon and rectum with fat stranding, no obstruction or perforation, moderate colonic stool, and large bowel interposed between the liver and anterior abdominal wall. White blood cell count was markedly elevated. Diarrhea has resolved, but patient continues to experience fatigue and has not regained weight. - Order repeat CBC to monitor WBC count. - Order CT abdomen and pelvis with oral and IV contrast to assess for ongoing colitis or other intra-abdominal pathology. - Order ultrasound of the gallbladder to evaluate for possible causes of dilated intrahepatic bile ducts. - Follow-up in 1 week to review results and reassess clinical status. 6. Neck pain (M54.2) Neck pain has become progressively worse and is now described as almost debilitating, with significant limitation in range of motion. - Order X-ray of the neck. - Refer to physical therapy. 7. Need for vaccination (Z23) getting a flu shot 8. Vitamin B12 deficiency (E53.8) - 9. Vitamin D deficiency (E55.9) 10. Iron deficiency (E61.1) Voice recognition software was used to compose this office note. Please excuse any unintended typographical errors. Recording using TUBE software for draft documentation of the visit was discussed with the patient/authorized billing customer service representative; all questions welcomed and answered. Patient/authorized billing customer service representative agreed to proceed Russ Barone MD [1] Social History Tobacco Use Smoking status: Never Smokeless tobacco: Never Vaping Use Vaping status: Never Used Substance Use Topics Alcohol use: No Drug use: No documented in this encounter [facility] 03-21-2025 History of Present illness Narrative Radiology Service Progress Note PATIENT NAME: Paty Rios DATE OF SERVICE: March 21, 2025 TIME: 10:34 AM PATIENT IDENTITY VERIFICATION COMPLETED USING TWO (2) IDENTIFIERS: Name and Date of confirmed by patient verbally. FALL SCREENING: Has the patient had 2 falls in the last year or 1 fall with injury or currently using an Ambulatory Assistive Device (Walker, Cane, Wheelchair, Crutches, etc.)? No PATIENT GENDER DATA: Assigned female at . status: : No status: NO. PATIENT RELEVANT IMPLANT DATA REVIEWED: Yes PATIENT PRESENTS WITH AN IMPLANTABLE OR ATTACHED TIE CUTTER: No RADIOLOGY DEPARTMENT: General X-ray: Exam(s) Completed: Spine X-Ray(s): Cervical AP / LAT / OBL PERIPHERAL IV DATA: Not applicable SIGNED BY: RT Dori(R) March 21, 2025 10:34 AM documented in this encounter [facility] 03-21-2025 Note HNO ID: [id number] Author: KIMBERLY LUX RT(R) Service: ? Author Type: Technologist Type: Progress Notes Filed: 03/21/2025 10:44 Note Text: Radiology Service Progress Note PATIENT NAME: Paty Rios DATE OF SERVICE: March 21, 2025 TIME: 10:34 AM PATIENT IDENTITY VERIFICATION COMPLETED USING TWO (2) IDENTIFIERS: Name and Date of confirmed by patient verbally. FALL SCREENING: Has the patient had 2 falls in the last year or 1 fall with injury or currently using an Ambulatory Assistive Device (Walker, Cane, Wheelchair, Crutches, etc.)? No PATIENT GENDER DATA: Assigned female at . status: : No status: NO. PATIENT RELEVANT IMPLANT DATA REVIEWED: Yes PATIENT PRESENTS WITH AN IMPLANTABLE OR ATTACHED TIE CUTTER: No RADIOLOGY DEPARTMENT: General X-ray: Exam(s) Completed: Spine X-Ray(s): Cervical AP / LAT / OBL PERIPHERAL IV DATA: Not applicable SIGNED BY: RT Dori(R) March 21, 2025 10:34 AM [facility] 03-21-2025 Instructions Russ Barone MD - 03/21/2025 10:01 AM EDT We discussed your recent health concerns, including weight loss, fatigue, and neck pain: - Weight Loss and Fatigue: - You have lost 14 pounds over the past three months, which is significant for your body weight. However, your weight has stabilized over the past two weeks, and you are eating more than before. - Continue eating small, frequent meals and incorporating calorie-dense snacks like potato chips, popcorn, and cookies, as you have been doing. - We will monitor your weight and overall progress. Please let me know if you experience further weight loss or worsening fatigue. - Neck Pain: - You reported significant neck pain that has worsened over time and is now affecting your daily activities. You are currently taking Meloxicam, Tylenol 8-hour, and regular Tylenol for pain relief. - I have ordered an x-ray of your neck to evaluate the cause of your pain. After reviewing the results, we may consider physical therapy as the next step. - Gastrointestinal Concerns: - Your diarrhea has resolved, and you are not experiencing abdominal pain or discomfort. However, due to your history of intestinal infection and findings from your previous CT scan, I have ordered: - A CT scan of the abdomen and pelvis with oral and IV contrast to evaluate the rectosigmoid area and bile ducts. - An ultrasound of the gallbladder to further assess the bile ducts and rule out any abnormalities. - Please schedule these imaging studies within the next two weeks. - Blood Work: - Your white blood cell count was previously elevated. I have ordered repeat blood work, including a complete blood count (CBC), to monitor for any ongoing issues. Please complete this today. - Thyroid Management: - Your thyroid levels have normalized with the current adjustment to your medication (taking half a tablet on Sundays). Continue this regimen as prescribed. ### Next Steps: - Schedule the CT scan of the abdomen and pelvis and the ultrasound of the gallbladder within the next two weeks. - Complete your blood work and neck x-ray today. - Follow up with me in one week to review your test results, monitor your weight, and discuss any changes in your symptoms. Thank you for sharing your concerns. I look forward to seeing you next week to continue addressing these issues. documented in this encounter [facility] 03-03-2025 Telephone encounter Note The following approved medication requests have been transmitted electronically. Requested Prescriptions Signed Prescriptions Disp Refills losartan (COZAAR) 25 mg tablet 90 tablet 3 Sig: Take 1 tablet by mouth once daily. Authorizing Provider: RUSS BARONE meloxicam (MOBIC) 15 mg tablet 90 tablet 0 Sig: Take 1 tablet by mouth once daily. for pain. Take with food. Authorizing Provider: RUSS BARONE MA [facility] 03-03-2025 Miscellaneous Notes The following approved medication requests have been transmitted electronically. Requested Prescriptions Signed Prescriptions Disp Refills losartan (COZAAR) 25 mg tablet 90 tablet 3 Sig: Take 1 tablet by mouth once daily. Authorizing Provider: RUSS BARONE meloxicam (MOBIC) 15 mg tablet 90 tablet 0 Sig: Take 1 tablet by mouth once daily. for pain. Take with food. Authorizing Provider: RUSS BARONE MA Patient is calling to see if medication filled before she runs out Rosa Beckwith MA Patient has been identified by name and date of : Yes Patient phones for refill(s): Requested Prescriptions Pending Prescriptions Disp Refills losartan (COZAAR) 25 mg tablet 90 tablet 1 Sig: Take 1 tablet by mouth once daily. meloxicam (MOBIC) 15 mg tablet 90 tablet 0 Sig: Take 1 tablet by mouth once daily. for pain. Take with food. Date of last office visit in primary care: 03/05/2024 Date of next office visit in primary care: Visit date not found Please advise. Thank you. Manisha Appiah LPN. documented in this encounter [facility] 03-02-2025 Telephone encounter Note Patient is calling to see if medication filled before she runs out Rosa Beckwith MA [facility] 03-01-2025 Telephone encounter Note Patient has been identified by name and date of : Yes Patient phones for refill(s): Requested Prescriptions Pending Prescriptions Disp Refills losartan (COZAAR) 25 mg tablet 90 tablet 1 Sig: Take 1 tablet by mouth once daily. meloxicam (MOBIC) 15 mg tablet 90 tablet 0 Sig: Take 1 tablet by mouth once daily. for pain. Take with food. Date of last office visit in primary care: 03/05/2024 Date of next office visit in primary care: Visit date not found Please advise. Thank you. Manisha Appiah LPN. [facility] 02-17-2025 Telephone encounter Note Patient notified. Referral faxed to Dr Ortez office. [facility] 02-17-2025 Miscellaneous Notes Patient notified. Referral faxed to Dr Ortez office. I reviewed her blood work and current symptoms with Dr. Braone. We thinks she needs to see gastroenterology, , Friend JANINA, and try another antibiotic. Unfortunately she has not tolerated the best antibiotics for this. I have sent in for cephalexin which she has been on in the past. Thank you Martha Funk APRN.SHANNON documented in this encounter [facility] 02-17-2025 Telephone encounter Note I reviewed her blood work and current symptoms with Dr. Barone. We thinks she needs to see gastroenterology, Dr, Friend JANINA, and try another antibiotic. Unfortunately she has not tolerated the best antibiotics for this. I have sent in for cephalexin which she has been on in the past. Thank you Martha Funk APRN.CNP [facility] 02-16-2025 Note HNO ID: [id number] Author: MARTHA FUNK APRN.CNP Service: ? Author Type: Nurse Practitioner Type: Progress Notes Filed: 02/16/2025 19:00 Note Text: CC: Patient presents with: Recheck: ER follow up, no appetite, fatigue HPI Paty Rios is a 84 year old female who presents today for ER follow up. Recording using TUBE software for draft documentation of the visit was discussed with the patient/authorized billing customer service representative; all questions welcomed and answered. Patient/authorized billing customer service representative agreed to proceed Colitis: - Recent ER visits on 03/13 and 03/17 for colitis and SALINAS. - Initial ER visit included CT scan and blood work indicating possible colitis; started on levofloxacin and metronidazole and given IVF in ER - Took antibiotics for 2-3 days; experienced severe emesis and discontinued use. - No further emesis since stopping antibiotics. - Denies abdominal pain, fever, chills, or rashes. - Bowel movements returning to normal; last bowel movement this morning was more formed and brown. - No longer taking Imodium. - Decreased appetite, but reports slight improvement; able to eat small amounts of food. - Consuming watermelon, mixed fruits, and small amounts of soup and crackers. - Avoids carbonated drinks due to discomfort; prefers orange juice and lemonade. - Denies liking milk products. Still feeling weak and very fatigued. Denies any fever, chills, chest pain, Shortness of Breath, edema, palpitations, difficulty/pain urinating, or dizziness. White count in ER was elevated at 20 and platelets greater then 700. CT of the abdomen in the ER showed proctocolitis and mildly dilated bile ducts. Hypothyroidism: - Currently taking levothyroxine; able to break tablets in half if needed. - Last TSH and T4 indicating levothyroxine dose needing to be lowered. REVIEW OF SYSTEMS See HPI PAST MEDICAL [...] Sodium], Grass Pollen, and Valtrex [Valacyclovir] MEDICATIONS levothyroxine (LEVOXYL) 100 mcg tablet Take 1 tablet by mouth once daily. Except take only 1/2 tablet on Sundays meloxicam (MOBIC) 15 mg tablet Take 1 tablet by mouth once daily. for pain. Take with food. simvastatin (ZOCOR) 10 mg tablet Take 1 tablet by mouth daily at bedtime. atenolol (TENORMIN) 50 mg tablet Take 1 [...] Daughter Thyroid Daughter Hypertension Son Hypertension Son SOCIAL HISTORY[1] PHYSICAL EXAM BP 104/60 Pulse 73 Resp 16 Wt 43.5 kg (96 lb) SpO2 97% BMI 19.35 kg/m? General Appearance: well appearing, in no acute distress, alert Eyes: conjunctiva pink and moist, no icterus, sclera white, non-injected Lungs: Lungs clear to auscultation. No wheezing, rhonchi, rales. Heart: RRR without murmur, gallop, or rubs. No ectopy Abdomen: Abdomen soft, non-tender. Bowel sounds normal. No masses, organomegaly Health maintenance reviewed with patient: Anxiety Screening Never done DTaP,Tdap,Td Vaccine(1 - Tdap) due on 04/09/2006 RSV Vaccine(1 - 1-dose 75+ series) Never done Influenza Vaccine(1) due on 03/07/2025 Diabetes Screening due on 02/10/2028 Bone Density Screening Completed Medicare Advantage Annual Wellness Visit Completed Shingrix Vaccine Completed Pneumococcal Vaccine: 50+ Completed Advance Directive Discussion Discontinued DATA REVIEWED: Most recent labs Outside chart from [facility] reviewed. Assessment/Plan 1. Weakness (R53.1) 2. Decreased appetite (R63.0) 3. Other fatigue (R53.83) - Ongoing weakness and decreased appetite following recent colitis and dehydration; (more content not included)... [facility] 02-16-2025 History of Present illness Narrative CC: Patient presents with: Recheck: ER follow up, no appetite, fatigue HPI Paty Rios is a 84 year old female who presents today for ER follow up. Recording using TUBE software for draft documentation of the visit was discussed with the patient/authorized billing customer service representative; all questions welcomed and answered. Patient/authorized billing customer service representative agreed to proceed Colitis: - Recent ER visits on 03/13 and 03/17 for colitis and SALINAS. - Initial ER visit included CT scan and blood work indicating possible colitis; started on levofloxacin and metronidazole and given IVF in ER - Took antibiotics for 2-3 days; experienced severe emesis and discontinued use. - No further emesis since stopping antibiotics. - Denies abdominal pain, fever, chills, or rashes. - Bowel movements returning to normal; last bowel movement this morning was more formed and brown. - No longer taking Imodium. - Decreased appetite, but reports slight improvement; able to eat small amounts of food. - Consuming watermelon, mixed fruits, and small amounts of soup and crackers. - Avoids carbonated drinks due to discomfort; prefers orange juice and lemonade. - Denies liking milk products. Still feeling weak and very fatigued. Denies any fever, chills, chest pain, Shortness of Breath, edema, palpitations, difficulty/pain urinating, or dizziness. White count in ER was elevated at 20 and platelets greater then 700. CT of the abdomen in the ER showed proctocolitis and mildly dilated bile ducts. Hypothyroidism: - Currently taking levothyroxine; able to break tablets in half if needed. - Last TSH and T4 indicating levothyroxine dose needing to be lowered. REVIEW OF SYSTEMS See HPI PAST MEDICAL [...] Sodium], Grass Pollen, and Valtrex [Valacyclovir] MEDICATIONS levothyroxine (LEVOXYL) 100 mcg tablet Take 1 tablet by mouth once daily. Except take only 1/2 tablet on Sundays meloxicam (MOBIC) 15 mg tablet Take 1 tablet by mouth once daily. for pain. Take with food. simvastatin (ZOCOR) 10 mg tablet Take 1 tablet by mouth daily at bedtime. atenolol (TENORMIN) 50 mg tablet Take 1 [...] Daughter Thyroid Daughter Hypertension Son Hypertension Son SOCIAL HISTORY[1] PHYSICAL EXAM BP 104/60 Pulse 73 Resp 16 Wt 43.5 kg (96 lb) SpO2 97% BMI 19.35 kg/m General Appearance: well appearing, in no acute distress, alert Eyes: conjunctiva pink and moist, no icterus, sclera white, non-injected Lungs: Lungs clear to auscultation. No wheezing, rhonchi, rales. Heart: RRR without murmur, gallop, or rubs. No ectopy Abdomen: Abdomen soft, non-tender. Bowel sounds normal. No masses, organomegaly Health maintenance reviewed with patient: Anxiety Screening Never done DTaP,Tdap,Td Vaccine(1 - Tdap) due on 04/09/2006 RSV Vaccine(1 - 1-dose 75+ series) Never done Influenza Vaccine(1) due on 03/07/2025 Diabetes Screening due on 02/10/2028 Bone Density Screening Completed Medicare Advantage Annual Wellness Visit Completed Shingrix Vaccine Completed Pneumococcal Vaccine: 50+ Completed Advance Directive Discussion Discontinued DATA REVIEWED: Most recent labs Outside chart from [facility] reviewed. Assessment/Plan 1. Weakness (R53.1) 2. Decreased appetite (R63.0) 3. Other fatigue (R53.83) - Ongoing weakness and decreased appetite following recent colitis and dehydration; minimal oral intake, with some improvement in appetite noted. - Encouraged patient to continue small, frequent meals and maintain adequate hydration with fluids that are well-tolerated. - Advised gradual reintroduction of protein sources as tolerated. 4. Leukocytosis, unspecified type (D72.829) 5. Thrombocytosis (D75.839) 6. Acute colitis (K52.9) 7. Dehydration (E86.0) - Recent ER visits for acute colitis with associated leukocytosis, thrombocytosis, and acute kidney injury secondary to dehydration. - Initial improvement in diarrhea; no current abdominal pain, fever, or chills. - Previous antibiotics (levofloxacin and metronidazole) discontinued after 2 days due to severe vomiting. - Differential for colitis includes bacterial, viral, or other etiologies. - Ordered repeat blood work to assess WBC, platelets, liver enzymes, and kidney function. - Will review lab results and determine need for further antibiotics based on current clinical status and lab findings. - Discussed risks of unnecessary antibiotic use, including potential for adverse effects and opportunistic infections. - Advised patient to maintain hydration and monitor for any recurrence of symptoms. 8. Hematuria, unspecified type (R31.9) 9. Proteinuria, unspecified type (R80.9) - Urinalysis showed trace hemolyzed blood and trace protein, likely related to recent dehydration. - Sent urine for microscopic analysis and culture to rule out infection. 10. Medication management (Z79.899) 11. Hypothyroidism, unspecified type (E03.9) - Thyroid levels indicate over-replacement of levothyroxine. - Advised patient to reduce levothyroxine dose by taking half a tablet once weekly (on Sundays). - Recheck thyroid levels in 4 weeks; follow-up appointment scheduled for March 19. Prescription instructions reviewed with patient as applicable. Potential red flag symptoms discussed with the patient. Reviewed appropriate action plan to take if red flag symptoms occur. Patient agreeable to treatment plan. Martha Funk APRN.CNP [1] Social History Tobacco Use Smoking status: Never Smokeless tobacco: Never Vaping Use Vaping status: Never Used Substance Use Topics Alcohol use: No Drug use: No documented in this encounter [facility] 02-16-2025 Instructions Martha Funk APRN.CNP - 02/16/2025 1:25 PM EDT - Continue to drink plenty of fluids throughout the day. Sip slowly on water, lemonade or raspberry-lemonade, orange juice, gina-lemon tea, broths, soups, popsicles or watermelon--choose what feels best and stop if it upsets your stomach. - Eat small amounts of foods that sound good to you. Try crackers topped with roast pork in gravy, cheese, ham salad, a few chicken nuggets or scrambled eggs--start with one bite at a time and build up as you can. - Today s labs include blood work to check your blood counts, platelets, liver enzymes and kidney function, plus a urine sample sent for microscopy and culture. Results should arrive later today or tomorrow morning. - No antibiotics today. We will review your lab results and decide tomorrow whether any antibiotic treatment is needed. - Adjust your levothyroxine dose: take your usual tablet every day except Sundays, when you ll take half a tablet. - Recheck your thyroid levels in four weeks at your scheduled appointment on March 19. - Keep your routine six-month follow-up with Dr. Paulino as planned. - If your symptoms do not continue to improve or you develop new fever, chills, abdominal pain or vomiting, please contact the office for further guidance. documented in this encounter [facility] 02-14-2025 Discharge summary [facility] 02-14-2025 Discharge summary Note Date/Time February 14, 2025 3:03pm [facility] Medical Records Department [address] [place] [address] Emergency Department Summary 02/14/25 MR#: [id number] Acct: [id number] Name: PATY RIOS Rep #:[id number] : 1940 84 From: Suhail Delacruz MD [...] Prior similar symptoms: Yes Recent Illness/Hospitalization: No [facility] Medical History Osteoarthritis Hyperglycemia Hypertension Hypothyroidism High [...] 86.0 H Lymph % (Auto) 5.3 L [place] % (Auto) 7.3 Eos % (Auto) 0.1 [...] Care Provider] - 3-5 Days Print Language: Khmer Disposition Disposition: Home, Self Care What to do if you have Problems For any increased pain, shortness of breath, bleeding, nausea or vomiting, chestpain, or any unexpected problems, contact your Primary Care Provider. Call [facility] ([phone]) or report to the closest Emergency Room. Call 911 if necessary. 02/14/25 1503 <Electronically signed by Suhail Delacruz MD> Cosigner Signature (if applicable): CC: Dr. Russ Barone MD ~ Signed [facility] Work Phone: [phone]) 439-785308-07-2025 Radiology Diagnostic study note [facility] Imaging Services [address] [place] [id number] Abdomen/Pelvis W IV Cont ONLY MR#: [id number] Acct: [id number] Name: PATY RIOS Rep #: [id number] : 1940 F 84 From: Per Rubio MD PCP: Dr. Russ Barone MD Status: REG E R Study:Abdomen/Pelvis W IV Cont ONLY Date of E xam: 02/10/25 Exam# [id number] Ordering Dr: Elvira Moore PROCEDURE: ABDOMEN/PELVIS W [...] of the ampulla is possible. Reading Location: [id number] CC: Dr. Russ Barone MD; ARIANA Leiva ~ Reporter: Signed [facility]08-06-2025 NoteHNO ID: [id number] Author: MARTHA FUNK APRN.ROUND UP RING HAND Service: ? Author Type: Nurse Practitioner Type: Progress Notes Filed: 02/09/2025 18:38 Note Text: CC: Patient presents with: Diarrhea: Diarrhea x 1 week HPI Paty A Wild is a 84 year old female who [...] Completed Advance Directive Discussio (more content not included)...[facility]06-04-2025 Telephone encounter Note* Telephone Encounter [...] Please advise. Thank you. Manisha Appiah LPN. [facility]06-04-2025 Miscellaneous Notes* Telephone Encounter - Manisha Appiah [...] you. Manisha Appiah LPN. [facility] Tele[facility] encounter Note * Telephone Encounter - [...] Please advise. Thank you. Manisha Appiah LPN. [facility]04-14-2025 Miscellaneous Notes* Telephone Encounter - Manisha Appiah [...] you. Manisha Appiah LPN. [facility] Tele[facility] encounter Note * Telephone Encounter - [...] Castanon LPN September 24, 2024 9:33 AM [facility]03-21-2025 Miscellaneous Notes* Telephone Encounter - Naida Castanon [...] 24, 2024 9:33 AM [facility] Telephone encounter Note * Telephone Encounter - [...] OSWALDO Call September 23, 2024 9:08 AM [facility]03-20-2025 Miscellaneous Notes* Telephone Encounter - Veena Rico [...] 23, 2024 9:08 AM [facility]25 NoteHNO ID: [id number] Author: RUSS BARONE MD Service: ? Author Type: Physician Type: Progress Notes Filed: 09/14/2024 08:47 Note Text: Paty Rios is a 84 year old female here for a Medicare wellness visit. Medicare Health Risk Assessment General Health Excellent Exercise: Minutes/Day 30 min Exercise: Days/Week 3 days she walks around her house in the [facility]. Alcohol: Daily Use Never Alcohol: Drinks/Day Patient [...] 118/68 Pulse 73 Ht 150 cm (4' 11.06") Wt 48.5 kg (107 lb) SpO2 97% [...] RMVL INSJ IO LENS PROSTH W/O ECP 2011 Phacoemulsification/Intraocular Lens Insertion XCAPSL CTRC RMVL INSJ IO LENS PROSTH W/O ECP 2011 Phacoemulsification/Intraocular Lens Insertion FAMILY HISTORY Problem Relation [...] 10 mg tablet Cet (more content not included)...[facility]03-11-2025 History of Present illness Narrative* [...] 118/68 Pulse 73 Ht 150 cm (4' 11.06") Wt 48.5 kg (107 lb) SpO2 97% [...] STEREO LOC FOR CORE BRST BX RT 12 TONSILLECTOMY & ADENOIDECTOMY <AGE 10 T/A (under [...] 118/68 Pulse 73 Ht 150 cm (4' 11.06") Wt 48.5 kg (107 lb) SpO2 97% [...] any unintended typographical errors. [facility] encounter[facility] Telephone encounter Note * Telephone Encounter - [...] Please advise. Thank you. Manisha Appiah LPN. [facility]02-24[facility] Miscellaneous Notes* Telephone Encounter - Manisha Appiah [...] you. Manisha Appiah LPN. documented in this encounterMer[facility]10-23-[facility]24 Telephone encounter Note * Telephone Encounter - Karrie Russo LPN - 04/28/2024 2:19 PM EDT Patient requesting to have regular dose flu vaccine and not high dose. States that she broke out inhives and was severely nauseated the last time she received the high dose. Please review and advise. Karrie Russo LPN [facility]10-23-[facility]24 Miscellaneous Notes* Telephone Encounter - Karrie Russo LPN - 04/28/2024 2:19 PM EDT Patient requesting to have regular dose flu vaccine and not high dose. States that she broke out inhives and was severely nauseated the last time she received the high dose. Please review and advise. Karrie Russo LPN documented in this encounterMer[facility]09-16-2024 Telephone encounter Note * Telephone Encounter - Martha Funk APRN.SHANNON - 03/22/2024 7:19 AM EDT Then no concerns on blood work. Thank you Martha Funk APRN.CNP [facility]09-16-[facility]24 Miscellaneous Notes* Telephone Encounter - Martha Funk APRN.CNP - 03/22/2024 7:19 AM EDT Then no concerns on blood work. Thank you Martha Funk APRN.CNP * Telephone Encounter - Muriel Child LPN - 03/19/2024 3:07 PM EDT Patient returned call and went over results, notes from Martha Funk ORACLE DATABASE ARCHITECT with understanding. Patient said she was not [...] you Martha Funk APRN.CNP documented in this encounterMer[facility]09-13-2024 Telephone encounter Note * Telephone Encounter - Muriel Child LPN - 03/19/2024 3:07 PM EDT Patient returned call and went over results, notes from Martha Funk ORACLE DATABASE ARCHITECT with understanding. Patient said she was not fasting for the lab work. [facility] Telephone encounter Note* Telephone Encounter - Lyndsay Dunn LPN - 03/19/2024 10:10 AM EDT Called and left message for patient to call office back for results Lyndsay Dunn LPN March 19, 2024 10:12 AM [facility]09-13-[facility]24 Telephone encounter Note* Telephone Encounter - Martha Funk APRN.CNP - 03/19/2024 9:39 AM EDT Blood work all in acceptable ranges. Blood sugar slightly elevated but is normal if this was not a fasting sample. If it was a fasting sample, I recommend we do a HgbA1c to further evaluate this. Thank you Martha Funk APRN.CNP [facility]09-12-[facility]24 Instructions* Patient Instructions* Martha Funk APRN.CNP - 03/18/2024 8:22 AM EDT Over the counter cream/gel with lidocaine and/or vit E gel. documented in this encounterMercy [facility]09-12-2024 History of Present illness Narrative* Martha Funk APRN.CNP - 03/18/2024 8:10 AM EDT CC: Patient [...] left ear and one small dried scab 1" for corner of left eye Eyes: conjunctiva [...] with patient: Anxiety Screening Never done Covid-19 Vaccine(2022-24 season) due on 03/07/2024 Influenza Vaccine(1) due [...] plan. Martha Funk APRN.CNP documented in this encounterMercy [facility]08-31-2024 Telephone encounter Note * Telephone Encounter - Stephanie García APRN.CNP - 03/06/2024 12:56 PM EDT Called with patient informed that culture revealed shingles. GFR 72, started on Valtrex. Recommend to call ENT on Friday for evaluation. Tylenol/ibuprofen as needed for pain. Stephanie García APRN.CNP [facility]08-31-[facility]24 Miscellaneous Notes* Telephone Encounter - Stephanie García APRN.CNP - 03/06/2024 12:56 PM EDT Called with patient informed that culture revealed shingles. GFR 72, started on Valtrex. Recommend to call ENT on Friday for evaluation. Tylenol/ibuprofen as needed for pain. Stephanie García APRN.CNP documented in this encounterMercy [facility]08-30-2024 Instructions* Patient Instructions* Stephanie García APRN.CNP - 03/05/2024 8:07 AM EDT Will send culture for cold sore, and notify of results Ofloxacin drops to right ear Pepcid 20 mg twice a day for 10 days Zyrtec 10 mg By mouth daily at bedtime documented in this encounterMercy [facility]08-30-2024 History of Present illness Narrative* Stephanie García APRN.CNP - 03/05/2024 8:04 AM EDT Images from the original note were not included. Subjective The history is provided by the patient. No supervisor modern languages was used. PAT Rios is a 83 [...] have confirmed and edited as necessary, the [facility] Review of Systems Constitutional: Negative for chills [...] indetail warranting prompt ER evaluation. Stephanie García APRN.ROUND UP RING HAND documented in this encounterMercy [facility]08-28-2024 History of Present illness Narrative* Sara Flores APRN.ROUND UP RING HAND - 03/03/2024 2:31 PM EDT Images from [...] history is provided by the patient. No supervisor modern languages was used. Rash Review of Systems Constitutional: [...] 2 different times when brands were switched. Sara Flores APRN.SHANNON documented in this encounterMercy [facility]08-28-2024 Telephone encounter Note * Telephone Encounter - [...] Please advise. Thank you. Manisha Appiah LPN. [facility]08-28-[facility] Miscellaneous Notes* Telephone Encounter - Manisha Appiah [...] care: 03/18/2024 Please advise. Thank you. Manisha Appaih LPN. documented in this encounterMercy [facility]03-13-2024 History of Present illness Narrative* MilagrosMarthaPUMA.ROUND UP RING HAND - 09/17/2023 8:15 AM EDT Images from [...] 3) due on 03/19/2024 Covid-19 Vaccine( - 2022-24 season) due on 03/19/2024 RSV Vaccine(1 - [...] plan. Martha Funk APRN.CNP documented in this encounterMercy [facility]03-13-2024 Instructions* Patient Instructions* Martha Funk APRN.CNP - [...] review all the medicines you take, even [id number] medicines. As you get older, the way [...] have certain medical conditions. documented in this encounterMer[facility]02-28-2024 Miscellaneous Notes* Telephone Encounter - Manisha Appiah [...] you. Manisha Appiah LPN. documented in this encounterMer[facility]09-13-2023 History of Present illness Narrative* Martha Funk APRN.ROUND UP RING HAND - 03/19/2023 8:04 AM EDT CC: Patient [...] plan. Martha Funk APRN.CNP documented in this encounterMercy [facility]09-13-2023 Miscellaneous Notes* Telephone Encounter - Lizbet Pham MA - 03/19/2023 7:41 AM EDT Patient notified of results, verbalized understanding and has f/u appt with Martha Older this AM. Lizbet Pham MA * Telephone Encounter - Sara Flores APRN.CNP - 03/18/2023 7:43 PM EDT Tsh is normal please have patient follow up with PCP. Thank you! documented in this encounterMer[facility]03-13-2023 History of Present illness Narrative* Russ Barone [...] medication. Russ Barone MD documented in this encounterMer[facility]03-11-2023 Miscellaneous Notes* Telephone Encounter - Manisha Appiah [...] Regards, Russ Barone MD documented in this encounterMer[facility]09-12-2022 History of Present illness Narrative* Russ Barone [...] hypothyroidism Russ Barone MD documented in this encounterMer[facility]03-31-2022 Miscellaneous Notes* Telephone Encounter - Manisha Appiah [...] you. Manisha Appiah LPN documented in this encounterMercy [facility]03-31-2022 Miscellaneous Notes* Telephone Encounter - Manisha Appiah [...] you. Manisha Appiah LPN documented in this encounterMercy [facility]03-31-2022 Miscellaneous Notes* Telephone Encounter - Claire Sheriff [...] review. Claire Sheriff MA [facility]* Diagnosis Essential hypertension, benign [facility] Diagnosis Elevated blood sugar Other abnormal glucose [facility]* Diagnosis Hypothyroidism, unspecified type [facility]* Diagnosis Hypothyroidism Unspecified hypothyroidism documented in this encounter [facility]* Diagnosis Essential hypertension, benign- Primary Need for influenza vaccination Need for prophylactic vaccination and inoculation against influenza Mixed hyperlipidemia Hypothyroidism, unspecified type Elevated blood sugar Other abnormal glucose documented in this encounter [facility] note* Diagnosis Elevated MCV- Primary Other abnormality of red blood cells Hypothyroidism, unspecified type Essential hypertension, benign Mixed hyperlipidemia documented in this encounter [facility] note* Diagnosis Elevated blood sugar Other abnormal glucose [facility]* Diagnosis Essential hypertension, benign- Primary Mixed hyperlipidemia Hypothyroidism, unspecified type Need for influenza vaccination Need for prophylactic vaccination and inoculation against influenza Annual physical exam Routine general medical examination at a health care facility documented in this encounter [facility]* Diagnosis Elevated blood sugar Other abnormal glucose documented in this encounter [facility]* Diagnosis Medicare annual wellness visit, subsequent- Primary Routine general medical examination at a health care facility Hypothyroidism, unspecified type Essential hypertension, benign Mixed hyperlipidemia Medication management Encounter for long-term (current) use of other medications documented in this encounter [facility]* Diagnosis Establishing care with new doctor, [...] glucose [facility]* Diagnosis Establishing care with new doctor, [...] Primary Urticaria, unspecified documented in this encounter [facility]* Diagnosis Establishing care with new doctor, [...] pain Otalgia, unspecified documented in this encounter [facility]* Diagnosis Establishing care with new doctor, [...] health care facility [facility]* Diagnosis Establishing care with new doctor, [...] inoculation against influenza documented in this encounter [facility] note* Diagnosis Establishing care with new doctor, [...] glucose documented in this encounter [facility]* Diagnosis Establishing care with new doctor, [...] Essential hypertension, benign documented in this encounter [facility] note* Diagnosis Establishing care with new doctor, [...] Essential hypertension, benign documented in this encounter [facility] note* Diagnosis Establishing care with new doctor, [...] Hypothyroidism, unspecified type documented in this encounter [facility] note* Diagnosis Establishing care with new doctor, [...] of right thumb documented in this encounter [facility] HospitalEvcar[facility] noteNo assessment information availableWAdams County [facility] Work Phone: Evaluation note* Diagnosis Establishing care with new doctor, [...] vaccination and inoculation against unspecified single disease Weakness- Primary Other malaise and fatigue Leukocytosis, unspecified type Hematuria, unspecified type Proteinuria, unspecified type Thrombocytosis Essential thrombocythemia Decreased appetite Anorexia Other fatigue Medication management Encounter for long-term (current) use of other medications Hypothyroidism, unspecified type Acute colitis Other and unspecified noninfectious gastroenteritis and colitis Dehydration documented in this encounter [facility] note* Diagnosis Establishing care with new doctor, [...] vaccination and inoculation against unspecified single disease Proctocolitis- Primary Ulcerative (chronic) proctitis documented in this encounter [facility] note* Diagnosis Establishing care with new doctor, [...] disease Elevated blood sugar Other abnormal glucose Arthritis of carpometacarpal (CMC) joint of right thumb documented in this encounter [facility] note* Diagnosis Establishing care with new doctor, [...] vaccination and inoculation against unspecified single disease Colitis due to Escherichia coli- Primary Intestinal infection due to E. coli, unspecified Excessive body weight loss Loss of weight Need for vaccination Need for prophylactic vaccination and inoculation against unspecified single disease Infection in abdomen (HCC) Unspecified peritonitis Other elevated white blood cell (WBC) count Neck pain Cervicalgia Dilated intrahepatic bile duct Other specified disorders of biliary tract Vitamin B12 deficiency Other B-complex deficiencies Vitamin D deficiency Unspecified vitamin D deficiency Iron deficiency Iron deficiency anemia, unspecified documented in this encounter [facility] HospitalEvaluation [facility]* Diagnosis Establishing care with new doctor, [...] vaccination and inoculation against unspecified single disease Neck pain Cervicalgia [facility] Discharge instructionsAdditional Instructions The CAT scan shows you have inflammation of your lower colon and rectum. This needs treated with an antibiotic since you have a high white blood cell count. Follow-up with your primary care doctor, or if any symptoms worsen like if you develop a fever, vomiting, abdominal pain, or worsening diarrhea please be seen again immediately.[facility] Work Phone: Reason for referral (narrative)No reason for referral information availableWAdams County [facility] Center Work Phone: Reepbm for visit Narrative* Diagnostic Procedure Only (Routine) - Closed Specialty Diagnoses / Procedures Referred By Dionte emmanuel Referred To Contact XR IMAGING Diagnoses Neck pain Procedures XR CERV OTHER 4V AP/LAT/OBL RADEX SPINE CERVICAL 4 OR 5 VIEWS Russ Barone MD [address] [place] [address] Phone: tel: fax: [place] [address] Referral ID Status Reason Start Date Expiration Date V isits Requested Visits Authorized [id number] Closed Auto-Generate d Referral 03/21/2025 04/20/2026 1 1 [facility] Advance Directives No Advanced Directives Records FoundDocuments on File Type Date 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 Yes February 10, 2025 6:37pm Advance Directive Response Recorded Date/ Time Do you have a Healthcare Power of Cloth Examiner Hand? Yes February 10, 2025 6:37pm Do you have a Healthcare Power of Cloth Examiner Hand? 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 Advance Directive(s) 08/07/2011 Advance Directive(s) 08/21/2006 Chief Complaint and Reason for Visit Chief [...] or prosecute any alcohol or drug abuse patient.[facility] HospitalIn the event this information is protected by the Federal Confidentiality of Alcohol and Drug Abuse Patient Records regulations: The Federal rules restrict any use of the information to criminally investigate or prosecute any alcohol or drug abuse patient.[facility] HospitalIn the event this information is protected by the Federal Confidentiality of Alcohol and Drug Abuse Patient Records regulations: The Federal rules restrict any use of the information to criminally investigate or prosecute any alcohol or drug abuse patient.[facility] HospitalIn the event this information is protected by the Federal Confidentiality of Alcohol and Drug Abuse Patient Records regulations: The Federal rules restrict any use of the information to criminally investigate or prosecute any alcohol or drug abuse patient.[facility] HospitalIn the event this information is protected by the Federal Confidentiality of Alcohol and Drug Abuse Patient Records regulations: The Federal rules restrict any use of the information to criminally investigate or prosecute any alcohol or drug abuse patient.[facility] HospitalIn the event this information is protected by the Federal Confidentiality of Alcohol and Drug Abuse Patient Records regulations: The Federal rules restrict any use of the information to criminally investigate or prosecute any alcohol or drug abuse patient.[facility] HospitalIn the event this information is protected by the Federal Confidentiality of Alcohol and Drug Abuse Patient Records regulations: The Federal rules restrict any use of the information to criminally investigate or prosecute any alcohol or drug abuse patient.[facility] HospitalIn the event this information is protected by the Federal Confidentiality of Alcohol and Drug Abuse Patient Records regulations: The Federal rules restrict any use of the information to criminally investigate or prosecute any alcohol or drug abuse patient.[facility] HospitalIn the event this information is protected by the Federal Confidentiality of Alcohol and Drug Abuse Patient Records regulations: The Federal rules restrict any use of the information to criminally investigate or prosecute any alcohol or drug abuse patient.[facility] HospitalIn the event this information is protected by the Federal Confidentiality of Alcohol and Drug Abuse Patient Records regulations: The Federal rules restrict any use of the information to criminally investigate or prosecute any alcohol or drug abuse patient.[facility] HospitalIn the event this information is protected by the Federal Confidentiality of Alcohol and Drug Abuse Patient Records regulations: The Federal rules restrict any use of the information to criminally investigate or prosecute any alcohol or drug abuse patient.[facility] HospitalIn the event this information is protected by the Federal Confidentiality of Alcohol and Drug Abuse Patient Records regulations: The Federal rules restrict any use of the information to criminally investigate or prosecute any alcohol or drug abuse patient.[facility] HospitalIn the event this information is protected by the Federal Confidentiality of Alcohol and Drug Abuse Patient Records regulations: The Federal rules restrict any use of the information to criminally investigate or prosecute any alcohol or drug abuse patient.[facility] HospitalIn the event this information is protected by the Federal Confidentiality of Alcohol and Drug Abuse Patient Records regulations: The Federal rules restrict any use of the information to criminally investigate or prosecute any alcohol or drug abuse patient.[facility] HospitalIn the event this information is protected by the Federal Confidentiality of Alcohol and Drug Abuse Patient Records regulations: The Federal rules restrict any use of the information to criminally investigate or prosecute any alcohol or drug abuse patient.[facility] HospitalIn the event this information is protected by the Federal Confidentiality of Alcohol and Drug Abuse Patient Records regulations: The Federal rules restrict any use of the information to criminally investigate or prosecute any alcohol or drug abuse patient.[facility] HospitalIn the event this information is protected by the Federal Confidentiality of Alcohol and Drug Abuse Patient Records regulations: The Federal rules restrict any use of the information to criminally investigate or prosecute any alcohol or drug abuse patient.[facility] HospitalIn the event this information is protected by the Federal Confidentiality of Alcohol and Drug Abuse Patient Records regulations: The Federal rules restrict any use of the information to criminally investigate or prosecute any alcohol or drug abuse patient.[facility] HospitalIn the event this information is protected by the Federal Confidentiality of Alcohol and Drug Abuse Patient Records regulations: The Federal rules restrict any use of the information to criminally investigate or prosecute any alcohol or drug abuse patient.[facility] HospitalIn the event this information is protected by the Federal Confidentiality of Alcohol and Drug Abuse Patient Records regulations: The Federal rules restrict any use of the information to criminally investigate or prosecute any alcohol or drug abuse patient.[facility] HospitalIn the event this information is protected by the Federal Confidentiality of Alcohol and Drug Abuse Patient Records regulations: The Federal rules restrict any use of the information to criminally investigate or prosecute any alcohol or drug abuse patient.[facility] HospitalIn the event this information is protected by the Federal Confidentiality of Alcohol and Drug Abuse Patient Records regulations: The Federal rules restrict any use of the information to criminally investigate or prosecute any alcohol or drug abuse patient.[facility] HospitalIn the event this information is protected by the Federal Confidentiality of Alcohol and Drug Abuse Patient Records regulations: The Federal rules restrict any use of the information to criminally investigate or prosecute any alcohol or drug abuse patient.[facility] HospitalIn the event this information is protected by the Federal Confidentiality of Alcohol and Drug Abuse Patient Records regulations: The Federal rules restrict any use of the information to criminally investigate or prosecute any alcohol or drug abuse patient.[facility] HospitalIn the event this information is protected by the Federal Confidentiality of Alcohol and Drug Abuse Patient Records regulations: The Federal rules restrict any use of the information to criminally investigate or prosecute any alcohol or drug abuse patient.[facility] HospitalIn the event this information is protected by the Federal Confidentiality of Alcohol and Drug Abuse Patient Records regulations: The Federal rules restrict any use of the information to criminally investigate or prosecute any alcohol or drug abuse patient.[facility] HospitalIn the event this information is protected by the Federal Confidentiality of Alcohol and Drug Abuse Patient Records regulations: The Federal rules restrict any use of the information to criminally investigate or prosecute any alcohol or drug abuse patient.[facility] HospitalIn the event this information is protected by the Federal Confidentiality of Alcohol and Drug Abuse Patient Records regulations: The Federal rules restrict any use of the information to criminally investigate or prosecute any alcohol or drug abuse patient.[facility] HospitalIn the event this information is protected by the Federal Confidentiality of Alcohol and Drug Abuse Patient Records regulations: The Federal rules restrict any use of the information to criminally investigate or prosecute any alcohol or drug abuse patient.[facility] HospitalIn the event this information is protected by the Federal Confidentiality of Alcohol and Drug Abuse Patient Records regulations: The Federal rules restrict any use of the information to criminally investigate or prosecute any alcohol or drug abuse patient.[facility] HospitalIn the event this information is protected by the Federal Confidentiality of Alcohol and Drug Abuse Patient Records regulations: The Federal rules restrict any use of the information to criminally investigate or prosecute any alcohol or drug abuse patient.[facility] HospitalIn the event this information is protected by the Federal Confidentiality of Alcohol and Drug Abuse Patient Records regulations: The Federal rules restrict any use of the information to criminally investigate or prosecute any alcohol or drug abuse patient.[facility] HospitalIn the event this information is protected by the Federal Confidentiality of Alcohol and Drug Abuse Patient Records regulations: The Federal rules restrict any use of the information to criminally investigate or prosecute any alcohol or drug abuse patient.[facility] HospitalIn the event this information is protected by the Federal Confidentiality of Alcohol and Drug Abuse Patient Records regulations: The Federal rules restrict any use of the information to criminally investigate or prosecute any alcohol or drug abuse patient.[facility] Reason for Visit (unrecogniz ed section and [...] Reason Onset Date Comments Refill Request 12/08/2024 Reason Comments Recheck ER follow up, no kika etite, fatigue Reason Onset Date Comments Refill Request 02/25/2025 Reason Comments F/U 6 Month Care Teams (unrecognized sec tion and content) Medical Charge Entry Specialist Relationship Specialty Start Date End Date Russ Barone MD [address] [place], [place] [id number] PCP - General Internal Medicine 11/01/14 Medical Charge Entry Specialist Relationship Specialty Start Date End Date Russ Barone MD [address], [place] [id number] PCP - General Internal Medicine 11/01/14 Medical Charge Entry Specialist Relationship Specialty Start Date End Date Russ Barone MD [address] [place] [address] PCP - General Internal Medicine 11/01/14 Medical Charge Entry Specialist Relationship Specialty Start Date End Date Russ Barone MD [address] [place] [address] PCP - General Internal Medicine 11/01/14 Medical Charge Entry Specialist Relationship Specialty Start Date End Date Russ Barone MD [address] [place] [address] PCP - General Internal Medicine 11/01/14 Medical Charge Entry Specialist Relationship Specialty Start Date End Date Russ Barone MD [address] [facility] [place] [address] PCP - General Internal Medicine 11/01/14 Medical Charge Entry Specialist Relationship Specialty Start Date End Date Russ Barone MD [address] [place] [address] PCP - General Internal Medicine 11/01/14 Medical Charge Entry Specialist Relationship Specialty Start Date End Date Russ Barone MD [address] [facility] [place] [address] PCP - General Internal Medicine 11/01/14 Medical Charge Entry Specialist Relationship Specialty Start Date End Date Russ Barone MD [address] [place] [address] PCP - General Internal Medicine 11/01/14 Medical Charge Entry Specialist Relationship Specialty Start Date End Date Russ Barone MD [address] [facility] [place] [address] PCP - General Internal Medicine 11/01/14 Medical Charge Entry Specialist Relationship Specialty Start Date End Date Russ Barone MD [address] [place] [address] PCP - General Internal Medicine 11/01/14 Medical Charge Entry Specialist Relationship Specialty Start Date End Date Russ Barone MD [address] [place] [address] PCP - General Internal Medicine 11/01/14 Medical Charge Entry Specialist Relationship Specialty Start Date End Date Russ Barone MD [address] [place] [address] PCP - General Internal Medicine 11/01/14 Medical Charge Entry Specialist Relationship Specialty Start Date End Date Russ Barone MD [address] [place] [address] PCP - General Internal Medicine 11/01/14 Medical Charge Entry Specialist Relationship Specialty Start Date End Date Russ Barone MD [address] [place] [address] PCP - General Internal Medicine 11/01/14 Medical Charge Entry Specialist Relationship Specialty Start Date End Date Russ Barone MD [address] [place] [address] PCP - General Internal Medicine 11/01/14 Medical Charge Entry Specialist Relationship Specialty Start Date End Date Russ Barone MD [address] [place] [address] PCP - General Internal Medicine 11/01/14 Medical Charge Entry Specialist Relationship Specialty Start Date End Date Russ Barone MD [address] [place] [address] PCP - General Internal Medicine 11/01/14 Alea Dorantes PA-C [address] [place] [address] Commission Specialist Family [facility] 06/13/24 Martha Funk APRN.[employer] [address] [place] [address] Commission Specialist Internal Medicine 06/13/24 Pamela Self PA-C [address] [place] [address] Commission Specialist Family [facility] 06/13/24 Medical Charge Entry Specialist Relationship Specialty Start Date End Date Russ Barone MD [address] [place] [address] PCP - General Internal Medicine 11/01/14 Alea Dorantes PA-C [address] [place] [address] Commission Specialist Family Medicine 06/13/24 Martha Funk APRN.[employer] [address] [place] [address] Commission Specialist Internal Medicine 06/13/24 Pamela Self PA-C [address] [place] [address] Commission Specialist Family [facility] 06/13/24 Medical Charge Entry Specialist Relationship Specialty Start Date End Date Russ Barone MD [address] [place] [address] PCP - General Internal Medicine 11/01/14 Alea Dorantes PA-C [address] [place] [address] Commission Specialist Family Medicine 06/13/24 Martha Funk APRN.[employer] [address] [place] [address] Commission Specialist Internal Medicine 06/13/24 Pamela Self PA-C [address] [place] [address] Commission Specialist Family Medicine 06/13/24 Medical Charge Entry Specialist Relationship Specialty Start Date End Date Russ Barone MD [address] [place] [address] PCP - General Internal Medicine 11/01/14 Martha Funk APRN.[employer] [address] [place] [address] Commission Specialist Internal Medicine 06/13/24 Medical Charge Entry Specialist Relationship Specialty Start Date End Date Russ Barone MD [address] [place] [address] PCP - General Internal Medicine 11/01/14 Alea Dorantes PA-C [address] [place] [address] Commission Specialist Family Medicine 06/13/24 09/26/24 Martha Funk APRN.[employer] [address] [place] [address] Commission Specialist Internal Medicine 06/13/24 Pamela Self PA-C [address] [place] [address] [facility] Family Medicine 06/13/24 09/26/24 Team Status: Active Member Role/Relationship Status Dates Dr. Russ Barone MD Primary Care Provider Active Team Status: Inactive Member Role/Relationship Status Dates Dr. Russ Barone MD Primary Care Provider Active Start: February 10, 2025 End: February 10, 2025 Dr. Galdino Pittman , DO Referring Provider Activ e Start: February 10, 2025 End: February 10, 2025 Dr. Galdino Pittman , DO Emergency Provider Activ e Start: February 10, 2025 End: February 10, 2025 Team Status: Inactive Member Role/Relationship Status Dates Dr. Russ Barone MD Primary Care Provider Active Start: February 14, 2025 End: February 14, 2025 Dr. Suhail Dealcruz MD Emergency Provider Active Sta rt: February 14, 2025 End: February 14, 2025 Medical Charge Entry Specialist Relationship Specialty Start Date End Date Russ Barone MD [address] [place] [address] PCP - General Internal Medicine 11/01/14 Martha Funk APRN.[employer] [address] [place] [address] [facility] Internal Medicine 06/13/24 Medical Charge Entry Specialist Relationship Specialty Start Date End Date Russ Barone MD [address] [place] [address] PCP - General Internal Medicine 11/01/14 Martha Funk, TESTING [employer].R[employer] [address] [facility] [place] [address] [facility] Internal Medicine 06/13/24 Medical Charge Entry Specialist Relationship Specialty Start Date End Date Russ Barone MD [address] [place] [address] PCP - General Internal Medicine 11/01/14 Martha Funk, TESTING [employer] [address] [place], [place] [address] Commission Specialist Internal Medicine 06/13/24 Medical Charge Entry Specialist Relationship Specialty Start Date End Date Russ Barone MD [address] [place], [place] [address] PCP - General Internal Medicine 11/01/14 Martha Funk, TESTING [employer] [address] [place], [place] [address] Commission Specialist Internal Medicine 06/13/24 Medical Charge Entry Specialist Relationship Specialty Start Date End Date Russ Barone MD [address] [place], [place] [address] PCP - General Internal Medicine 11/01/14 Martha Funk, TESTING [employer].R[employer] [address] [place], [place] [id number] Commission Specialist Internal Medicine 06/13/24 Medical Charge Entry Specialist Relationship Specialty Start Date End Date Russ Barone MD [address] [place], [place] [address] PCP - General Internal Medicine 11/01/14 Martha Funk, TESTING [employer] [address] [place] [address] Commission Specialist Internal Medicine 06/13/24 Goals (unrecognized section and content) Goals may be documented in a n alternate sectionGoals may be documented in an alternate section INFORMATION SOURCE (unrecogn ized section and content) DATE CREATED AUTHOR 02/20/2025 [facility] DATE CREATED AUTHOR 'S PB PASCAL 03/23/2025 [facility] FOR RECORDS PERTAINING TO PATIENTS WHO ARE [...] BE BASED ON THE PRIMARY CLINICAL RECORDS. [facility] [employer] [facility]. provides no warranty or guarantee of the accuracy or completeness of information in this document.
[2025-03-24] MEDS: 0.9% Normal Saline (1000mL) 1,000 ML 1000 ML IV ×2 (19:57→23:36)
[2025-03-24 20:12] LABS: Hematocrit 43.9 % (37-47); Hemoglobin 13.9 g/dL (12.0-15.0); Immature Granulocytes Count 0.330 X10^3/uL (0.0-0.0); Mean Corp Hgb Conc 31.7 g/dL (32-36); Mean Corpuscular Volume 100.0 fL (81-99); Mean Platelet Vol. 7.9 fl (6.2-12.0); NRBC Flagged by Analyzer 0 % (0-5); POSITIVE COUNT YES; POSITIVE DIFFERENTIAL YES; POSITIVE MORPHOLOGY YES; Platelet Count 734 K/mm3 (150-450); RBC Distribution Width CV 13.7 % (11.6-14.6); RBC Distribution Width SD 50.6 fl (35.1-43.9); Red Blood Count 4.39 M/mm3 (4.2-5.4)
[2025-03-24 20:42] LABS: Differential Indicated SCAN CRITERIA MET; White Blood Count 38.0 K/mm3 (4.4-11.0)
[2025-03-24 20:50] VITALS: BP 141/64; PULSE 72; RESP 18; O2SAT 96
[2025-03-24 20:57] LABS: AST(SGOT) 35 U/L (<=31); Alanine Aminotransfer ALT/SGPT < 5 U/L (<=34); Albumin, Serum 2.8 g/dL (3.4-4.8); Alkaline Phosphatase 138 U/L (35-104); Anion Gap 15 (5-15); BUN 25 mg/dL (4-19); BUN/Creat Ratio 25.8 RATIO (10-20); Calcium,Total 10.4 mg/dL (7.6-11.0); Carbon Dioxide 23.2 mmol/L (21.0-32.0); Chloride 102 mmol/L (98-108); Estimated Creatinine Clearance 29.79 ml/min (50-250); Globulin 4.1 g/dL (2.2-4.2); Glucose 171 mg/dL (70-99); Potassium 4.8 mmol/L (3.3-5.1)
[2025-03-24] MEDS: Meropenem 1 GM in 0.9% Normal Saline (100mL MB+) 100 ML IV (21:04)
[2025-03-24 21:28] VITALS: BP 138/58; PULSE 83; RESP 22; TEMP 36.8; O2SAT 95
[2025-03-24 22:06] LABS: Differential Comment SCANNED
[2025-03-24 22:28] VITALS: BP 145/77; PULSE 72; RESP 14; TEMP 36.8; O2SAT 96
[2025-03-24 23:06] VITALS: BP 123/78; PULSE 72; RESP 17; TEMP 36.6; O2SAT 96
--- NOTE | 2025-03-24 23:56 | EDS_ITS ---
HPI History of Present Illness Chief Complaint: Nausea/Vomiting Detail of Chief Complaint: Patient presents with nausea vomiting constipation. Informant: patient Onset/Context/Timing Onset: Today (Nausea and vomiting started today not 7 weeks ago as documented by triage nurse.) Context: Sudden Onset Timing: Intermittent Quality: She complains of abdominal pain Location: Right upper and right lower quadrant as well as left lower quadrant Current Severity: Mild Maximum Severity: Moderate Worsened by: Movement and palpation Relieved by: Nothing Associated Symptoms Associated Symptoms: Nausea and vomiting today and no bowel movement x 3 days Narrative Narrative: Patient is a pleasant 84-year-old woman. Patient presented February 10 for diarrhea and was diagnosed with proctitis. She was treated with levofloxacin and metronidazole due to her antibiotic allergies. The patient was seen by me on February 14 for abdominal pain generalized weakness and thirst. Patient her diagnosis was prerenal azotemia, leukocytosis, . Elevated blood- pressure reading without hypertension and dehydration. She was discharged to home with antiemetic. She was still taking the metronidazole and levofloxacin. Patient presents today because of no bowel movement x 3 days and nausea vomiting several times a day. She admits to a 14 pound weight loss past month. She is scheduled to see Dr. Grossman in April. She has no known history of cancer. She denies fever, chills night sweats. She denies headache, visual, ocular auditory symptoms. She does endorse thirst, dry mouth, lightheadedness and decreased urine output. She denies dysuria or hematuria. She does endorse generalized weakness. Prior similar symptoms: No Recent Illness/Hospitalization: Yes [facility] Medical History Dehydration Thrombocytosis Decreased appetite Weakness Diverticulosis of colon Disorder of bone and cartilage Benign neoplasm of colon Proctitis Osteoarthritis Hyperglycemia Hypertension Hypothyroidism High blood cholesterol Colitis Home Medications Medication Instructions Recorded Last Taken Type aspirin 81 mg tablet 81 mg PO DAILY 02/14/2502/04 History atenolol 50 mg tablet 50 mg PO DAILY 02/14/2502/04 History hydrochlorothiazide 12.5 mg capsule 12.5 mg PO DAILY 0 02/14/25 02/14/25 History levothyroxine 100 mcg tablet 100 mcg PO DAILY 02/14/25 02/14/25 History losartan 25 mg tablet 25 mg PO DAILY 02/14/2502/04 History meloxicam 15 mg tablet 15 mg PO DAILY pain 02/14/25 02/14/25 History ondansetron 4 mg disintegrating 4 mg PO Q8H PRN PRN Na usea #10 tabs 02/14/25 Unknown Rx tablet simvastatin 10 mg tablet 10 mg PO QHS 02/14/25 History cetirizine 10 mg capsule (All Day 10 mg PO QDAY PRN al lergies 03/21/25 Unknown History Allergy (cetirizine)) Allergy/AdvReac Type Severity Reaction Status Date / Time alendronate sodium (From Allergy Intermediate Other Verified 03/24/25 18:53 Fosamax) amoxicillin Allergy Intermediate Hives Verified 03/24/25 18:53 valacyclovir (From Valtrex) Allergy Intermediate Other Verified 03/24/25 18:53 levofloxacin AdvReac Abd Verified 03/24/25 18:53 cramps/diarrhea metronidazole (From Flagyl) AdvReac Abd Verified 03/24/25 18:53 cramps/diarrhea Family History Mother TIA (transient ischemic attack) CHF (congestive heart failure) Surgical History History of tonsillectomy and adenoidectomy H/O laparoscopy H/O dilation and curettage Social History household members: none Smoking Status: Never smoker alcohol intake: never substance use type: does not use ROS ROS ED Constitutional Constitutional ED: Reports chills and weight loss; Denies fever(s), subjective or sweats Eyes Eyes: Denies blurry vision or change in vision ENT ENT ED: Denies ear pain, rhinorrhea or sore throat Cardiovascular Cardiovascular: Denies chest pain or palpitations Respiratory/Chest Respiratory/Chest: Denies cough, dyspnea or dyspnea on exertion Gastrointestinal Gastrointestinal: Reports abdominal pain, constipation, nausea, vomiting and other Details: She denies coffee-ground emesis or hematemesis. ; Denies diarrhea or melena Genitourinary Genitourinary ED: Reports other Details: Decreased urine output. ; Denies dysuria or hematuria Musculoskeletal Musculoskeletal: Denies arthralgias, back pain or myalgias Integumentary Denies rash Neurologic Neurologic: Reports weakness; Denies headache(s) or paresthesias Endocrine Endocrinology: Denies cold intolerance or heat intolerance Hematologic/Lymphatic Hematologic/Lymphatic: Reports systems reviewed and no addt'l complaints, except as documented EXAM Physical Exam Const Vital Signs: 03/24/25 18:50 03/24/25 20:50 03/24/25 21:28 Temperature 98.2 F 98.3 F Temperature Source Oral Oral Pulse Rate 64 72 83 Respiratory Rate 16 18 22 H Blood Pressure 98/55 L 141/64 H 138/58 H Blood Pressure Mean 69 89 84 Pulse Ox 96 96 95 Oxygen Delivery Method Room Air Room Air 03/24/25 22:28 03/24/25 23:06 Temperature 98.2 F 98 F Temperature Source Oral Pulse Rate 72 72 Respiratory Rate 14 17 Blood Pressure 145/77 H 123/78 H Blood Pressure Mean 99 93 Pulse Ox 96 96 Oxygen Delivery Method Room Air Positive well nourished and well developed Constitutional Narrative: Patient appears ill. She is hypotensive. She looks like she has lost weight since I last saw her. General Appearance ED: well developed; Negative for pallor HEENT Reports dry mucous membranes HEENT Narrative: Head is atraumatic normocephalic. Ears normal. Posterior pharynx is normal Mouth ED: Yes dry mucous membranes Mouth: dry mucous membranes Eyes PERRL and EOMs intact bilaterally General Eye ED: Negative for pale conjunctiva or scleral icterus Neck no lymphadenopathy, supple and no JVD Chest Wall inspection of chest normal and palpation of chest normal Resp normal respiratory effort and clear to auscultation bilaterally Cardio regular rate, regular rhythm, S1 normal heart sound, S2 normal heart sound and no murmurs GI GI Narrative: Abdomen is distended tympanitic with decreased bowel sounds. She has tenderness right upper quadrant, right lower quadrant or left lower quadrant. There is no tenderness in the left upper quadrant. There is no palpable pulsatile mass. Question of mild peritoneal findings. She also has guarding in the right lower and left lower quadrant. (She has no history of diverticulosis) Inspection: abdominal distention Auscultation: hypoactive bowel sounds Palpation: tender and guarding Back/Spine no CVA tenderness Extremity normal to inspection General Extremety ED: Negative for edema or tenderness General Extremity: Negative for edema Neuro oriented x3, CN's II-XII intact bilaterally and no sensory deficits noted Sensorium / Orientation: alert Psych mental status grossly normal Skin no rashes or lesions noted, no wounds and skin turgor normal General Skin Exam: elasticity normal; Negative for jaundice or pallor Sepsis Attestation Sepsis Alert: Yes Sepsis Attestation: Agree w/Sepsis Date exam was performed: 03/25/25 Time exam was performed: 20:45 Fluid Resuscitation Fluid resuscitation indicated?: Yes Fluid Resuscitation ordered: 30 ml/kg fluid bolus ordered Sepsis Note Date exam was performed: 03/25/25 Time exam was performed: 00:04 Sepsis Attestation: Sepsis re-evaluation was performed Response to fluids: Fluid responsive hypotension MDM MDM MDM Narrative Medical decision making narrative: Room 14 pound weight loss abnormal abdominal exam concern for intra-abdominal infection did evaluate gallbladder, liver, colon also need to consider obstruction which would be unlikely since she has had no abdominal surgery. Initially his CBC and competence metabolic panel was obtained with lactate. When I was made aware of the white count of 38,000 CT was changed to IV and p.o. contrast. Blood cultures were obtained and she was treated with meropenem due to her allergies. She also received IV fluids. She has received more than 30 cc/kg bolus. She was fluid responsive. History & Record Review Discussion w/independent historian: Patient (Informed of results and need for admission.) and Family Lab Data Attestation: I reviewed the patient's lab results. Lab results narrative: White count is 38,000 with shift of 92 segs no bands. H&H 13 9 and 43.9. Her H&H on 811 was 13 3 and 40.2. This may reveal mild hemoconcentration. Comprehensive metabolic panel is remarkable for a BUN of 25 with a creatinine of 0.95 and a BUN/creatinine ratio of approximately 26-1. Estimated GFR is 58. This is about her baseline. Lactate was elevated 3.4. AST is slightly elevated 35. Albumin is decreased from baseline of 3.5-2.8. This would go along with her malnourishment and weight loss. Labs: Laboratory Results - last 24 hr 03/24/25 03/24/25 20:00 21:05 WBC 38.0 H* RBC 4.39 Hgb 13.9 Hct 43.9 MCV 100.0 H MCH 31.7 MCHC 31.7 L RDW Std Deviation 50.6 H RDW Coeff of Anay 13.7 Plt Count 734 H MPV 7.9 Immature Gran % (Auto) 0.900 Neut % (Auto) 92.1 H Lymph % (Auto) 3.1 L Walton % (Auto) 3.8 Eos % (Auto) 0.0 Baso % (Auto) 0.1 Absolute Neuts (auto) 35.0 H Absolute Lymphs (auto) 1.16 Nucleated RBC % 0 Differential Comment SCANNED Diff Path Review May foll Platelet Estimate [employer] Sodium 141 Potassium 4.8 Chloride 102 Carbon Dioxide 23.2 Anion Gap 15 BUN 25 H Creatinine 0.95 Estim Creat Clear Calc 29.79 L Est GFR (MDRD) Non-Af 58 L BUN/Creatinine Ratio 25.8 H Glucose 171 H Lactic Acid 3.4 H* Calcium 10.4 Total Bilirubin 0.75 AST 35 H ALT < 5 Alkaline Phosphatase 138 H Total Protein 7.0 Albumin 2.8 L Globulin 4.1 Albumin/Globulin Ratio 0.7 L Radiography Diagnostic Testing: Clinical Impression(s) from Imaging Studies Abdomen/Pelvis CT 03/24/25 19:29 IMPRESSION: 1. Nonspecific mild intra and extrahepatic biliary ductal dilatation, similar to prior. 2. Constipation with segmental colitis involving the distal rectosigmoid colon, which is now progressed proximally to involve the transverse and descending colonic segments. 3. Nonspecific small volume abdominopelvic ascites, likely related to the colitis. Reading Location: [facility] Management Discussion w/another healthcare provider: Hospitalist (Dr. Dailey was paged for admission. Will inform Dr. Dailey that patient is scheduled to see Dr. Grossman. Patient to be admitted to PCU. Since patient does not have endorgan dysfunction even though she was hypotensive at 38 with's white count per Dr. Dailey patient is technically not sepsis. 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 Dailey hospitalist.) and Arranging Admission or Transfer Discharge Plan Dx/Rx/DC Orders Clinical Impression: Sepsis, Acute hypotension, Acidosis, lactic, Colitis, Acute dehydration, Unintentional weight loss of 5% body weight or less within 1 month, Nausea & vomiting, Abdominal ascites Disposition Disposition: Acute Care Hospital [facility]
[2025-03-25] VITALS (7 sets, daily range): BP systolic 103–129; BP diastolic 40–65; PULSE 69–79; RESP 14–16; TEMP 36.6–36.8; O2SAT 92–98; BMI 19.0
--- NOTE | 2025-03-25 00:18 | PCM.HP.STD ---
HPI - General General Date of Admission: 03/25/25 Date of Service: 03/25/25 Chief Complaint: N/V, constipation, abdominal pain. HPI Narrative The patient is an 84 y/o F w/ PMHx: History of benign neoplasm of the colon, chronic thrombocytosis, HTN, HLD, Hypothyroidism, CKD stage II per GFR trending who presents to [facility] ED on 03/24/2025 with history of persistent nausea and emesis ongoing for the last 7 weeks seen multiple times with significant persistent constipation with recent abdominal ultrasound performed on day prior to ED evaluation not at [facility] however with most recent imaging previous to this during an ED visit with CT abdomen and pelvis with IV contrast on 02/10/2025 with diffusely thickened rectosigmoid colon with adjacent inflammatory changes with questionable proctocolitis with mildly dilated bile ducts with no obstructing lesion discharged home at that time now re-presenting given intractability of her nausea/emesis, inability to maintain oral intake, weight loss and persistent constipation. She notes that her nausea and emesis as well as lack of bowel movement has been more significant over the last 3 days. During her previous ED evaluation when she was discharged with proctitis she was treated with Levaquin and Flagyl secondary to her allergies/intolerances. She notes that she is actually still taking the Flagyl and Levaquin. Workup in the ED included T98.2, heart rate 64, BP initially 90/55, respiratory rate 16, 96% on room air with most recent repeat vitals T98, heart rate 72, BP 123/78, respiratory rate 17, 96% on room air, CBC with WBC 38, hemoglobin 13.9, platelets 734 with significant left shift, lactic acid 3.4, CMP with BUN/creatinine 25/0.95, GFR 58, glucose 171, hepatic profile with AST 35, alk phos 138 otherwise not marked appearing, CT abdomen and pelvis with IV and oral contrast with nonspecific mild intra and extrahepatic biliary ductal dilatation similar to prior, constipation with segmental colitis involving the distal rectosigmoid colon now progressed proximally to involve the transverse and descending colonic segments with nonspecific small volume abdominopelvic ascites likely related to the colitis, blood culture x 2 pending per ED. In the ED patient ministered 2 L normal saline (administered 30 cc/kg IVFs), meropenem 1 g IV x 1 and Zofran 4 mg IV x 1. PFSH Medical History Thrombocytosis Diverticulosis of colon Disorder of bone and cartilage Benign neoplasm of colon Osteoarthritis Hypertension Hypothyroidism High blood cholesterol Colitis Home Medications Medication Instructions Recorded Last Taken Type aspirin 81 mg tablet 81 mg PO DAILY 02/14/25 02/14/25 History atenolol 50 mg tablet 50 mg PO DAILY 02/14/25 02/14/25 History hydrochlorothiazide 12.5 mg capsule 12.5 mg PO DAILY 02/14/25 02/14/25 History levothyroxine 100 mcg tablet 100 mcg PO DAILY 02/14/25 02/14/25 History losartan 25 mg tablet 25 mg PO DAILY 02/14/25 02/14/25 History meloxicam 15 mg tablet 15 mg PO DAILY pain 02/14/25 02/14/25 History ondansetron 4 mg disintegrating 4 mg PO Q8H PRN PRN Nausea #10 tabs 02/14/25 Unknown Rx tablet simvastatin 10 mg tablet 10 mg PO QHS 02/14/25 02/13/25 History cetirizine 10 mg capsule (All Day 10 mg PO QDAY PRN allergies 03/21/25 Unknown History Allergy (cetirizine)) Allergy/AdvReac Type Severity Reaction Status Date / Time alendronate sodium (From Allergy Intermediate Other Verified 03/24/25 18:53 Fosamax) amoxicillin Allergy Intermediate Hives Verified 03/24/25 18:53 valacyclovir (From Valtrex) Allergy Intermediate Other Verified 03/24/25 18:53 levofloxacin AdvReac Abd Verified 03/24/25 18:53 cramps/diarrhea metronidazole (From Flagyl) AdvReac Abd Verified 03/24/25 18:53 cramps/diarrhea Family History (Updated 03/25/25 @ 00:[address] Anca Dailey MD) Mother TIA (transient ischemic attack) CHF (congestive heart failure) Heart disease Father Heart disease Surgical History History of tonsillectomy and adenoidectomy H/O laparoscopy H/O dilation and curettage Social History household members: none Smoking Status: Never smoker alcohol intake: never substance use type: does not use ROS ROS Narrative Admission Review of Systems: CONSTITUTIONAL: No fever, + chills, weight loss, weakness or fatigue. HEENT: Eyes: No visual loss, blurred vision, double vision or yellow sclerae. Ears, Nose, Throat: No hearing loss, sneezing, congestion, runny nose or sore throat. SKIN: No rash or itching, lesions, wounds. CARDIOVASCULAR: No chest pain, chest pressure or chest discomfort, palpitations, edema, orthopnea, syncopal events. RESPIRATORY: No shortness of breath, cough or sputum, wheezing, hemoptysis. GASTROINTESTINAL: + anorexia, nausea, vomiting, abdominal pain, constipation. No diarrhea, melena, BRBPR. GENITOURINARY: + Decreased urine output. No dysuria, frequency, urgency or retention. NEUROLOGICAL: No headache, dizziness, syncope, paralysis, ataxia, numbness or tingling in the extremities, focal weakness, change in bowel or bladder control, seizure. MUSCULOSKELETAL: + muscle, back pain, joint pain or stiffness. HEMATOLOGIC: No anemia, bleeding or bruising. LYMPHATICS: No enlarged nodes. No history of splenectomy. PSYCHIATRIC: No history of depression or anxiety. ENDOCRINOLOGIC: No reports of sweating, cold or heat intolerance. No polyuria or polydipsia. ALLERGIES: + History of allergic rhinitis, hives. Vital Signs Vital Signs Vital Signs: 03/24/25 18:50 03/24/25 20:50 03/24/25 21:28 Temperature 98.2 F 98.3 F Temperature Source Oral Oral Pulse Rate 64 72 83 Respiratory Rate 16 18 22 H Blood Pressure 98/55 L 141/64 H 138/58 H Blood Pressure Mean 69 89 84 Pulse Ox 96 96 95 Oxygen Delivery Method Room Air Room Air 03/24/25 22:28 03/24/25 23:06 Temperature 98.2 F 98 F Temperature Source Oral Pulse Rate 72 72 Respiratory Rate 14 17 Blood Pressure 145/77 H 123/78 H Blood Pressure Mean 99 93 Pulse Ox 96 96 Oxygen Delivery Method Room Air Weight Weight: 97 lb 14.164 oz Body Mass Index (BMI) 19.1 Physical Exam Narrative Physical Examination: General: Awake, alert, oriented x 3 and cooperative, seated upright in the ED bed, fatigued and mildly uncomfortable appearing although she reports she did have a large bowel movement in the ED and feels somewhat improved now. Skin: Normal color, normal turgor, no icterus, no cyanosis Except occasional staged ecchymoses, abrasion. HEENT: AT/NC, EOMI, PERRLA, dry MM, no carotid bruits or JVD noted. Lungs: Mildly diminished, > bases, no rales, ronchi or wheezing. Heart: Regular rate and rhythm; no gallop, rub audible. Abdomen: Soft, diffuse TTP, voluntary guarding, distended, absent bowel sounds, difficult to assess HSM given pain elicited with palpation given abdominal pain. Extremities: No cyanosis, clubbing, or edema. Neurological: Patient awake, alert, oriented as noted, cognitive function intact; pupils equally reactive to light and accommodation, cranial nerves grossly normal, moving all 4 extremities, no focal deficits, strength moderately to severely globally decreased secondary to acute presentation. Psychiatric: Affect appears fatigued, mildly uncomfortable, no acute evidence of depressive or anxiety feelings. Results Lab / Micro Data 03/24/25 20:00 03/24/25 20:00 Labs: Laboratory Results - last 24 hr 03/24/25 20:00: WBC 38.0 H*, RBC 4.39, Hgb 13.9, Hct 43.9, MCV 100.0 H, MCH 31.7, MCHC 31.7 L, RDW Std Deviation 50.6 H, RDW Coeff of Anay 13.7, Plt Count 734 H, MPV 7.9, Immature Gran % (Auto) 0.900, Neut % (Auto) 92.1 H, Lymph % (Auto) 3.1 L, Lea % (Auto) 3.8, Eos % (Auto) 0.0, Baso % (Auto) 0.1, Absolute Neuts (auto) 35.0 H, Absolute Lymphs (auto) 1.16, Nucleated RBC % 0, Differential Comment SCANNED, Diff Path Review November foll, Platelet Estimate [employer], Sodium 141, Potassium 4.8, Chloride 102, Carbon Dioxide 23.2, Anion Gap 15, BUN 25 H, Creatinine 0.95, Estim Creat Clear Calc 29.79 L, Est GFR (MDRD) Non-Af 58 L, BUN/Creatinine Ratio 25.8 H, Glucose 171 H, Calcium 10.4, Total Bilirubin 0.75, AST 35 H, ALT < 5, Alkaline Phosphatase 138 H, Total Protein 7.0, Albumin 2.8 L, Globulin 4.1, Albumin/Globulin Ratio 0.7 L 03/24/25 21:05: Lactic Acid 3.4 H* Imaging Radiology Impression Abdomen/Pelvis CT 03/24/25 19:29 IMPRESSION: 1. Nonspecific mild intra and extrahepatic biliary ductal dilatation, similar to prior. 2. Constipation with segmental colitis involving the distal rectosigmoid colon, which is now progressed proximally to involve the transverse and descending colonic segments. 3. Nonspecific small volume abdominopelvic ascites, likely related to the colitis. Reading Location: [facility] Assessment & Plan Assessment/Plan (1) Nausea & vomiting: PLAN: Plan The patient is an 84 y/o F w/ PMHx: History of benign neoplasm of the colon, chronic thrombocytosis, HTN, HLD, Hypothyroidism, CKD stage II per GFR trending who presents to [facility] ED on 03/24/2025 with history of persistent nausea and emesis ongoing for the last 7 weeks seen multiple times with significant persistent constipation with recent abdominal ultrasound performed on day prior to ED evaluation not at [facility] however with most recent imaging previous to this during an ED visit with CT abdomen and pelvis with IV contrast on 02/10/2025 with diffusely thickened rectosigmoid colon with adjacent inflammatory changes with questionable proctocolitis with mildly dilated bile ducts with no obstructing lesion discharged home at that time now re-presenting given intractability of her nausea/emesis, inability to maintain oral intake, weight loss and persistent constipation. #1. SIRS (NO END ORGAN DAMAGE aside lactic acidosis to be labeled as sepsis as noted in ED note, patient with leukocytosis, lactic acidosis, transient hypotension that responded well to IVFs) secondary to Acute colitis involving the distal rectosigmoid colon, transverse and descending colonic segments with associated nonspecific small volume abdominopelvic ascites with questionable failure of recent abx therapies (questionable infectious, inflammatory): Will admit to PCU, maintain on aggressive hydration, monitor I&Os, allow clears however low threshold to transition to n.p.o. status if intractable nausea or emesis despite as needed agents, treat with continued IV meropenem regimen given allergies/intolerances and recent questionable failure of outpatient outpatient abx therapy, will maintain on IV PPI, anti-emetics, pain regimen PRN. Will con request gastroenterology consultation given severity of constipation and appearance of colitis as patient was supposed to follow-up outpatient with gastroenterology but has yet to have her visit. #2. Chronic thrombocytosis: Unclear exact etiology: Admission platelets 734, similar to previous baseline noted 02/14/2025 platelets 71 and prior to this on 02/10/2025 platelets 542, continue to trend CBC. #3. Chronic Kidney Disease Stage III, unclear subtype per GFR trend: Admission BUN/Cr 25/0.95, GFR 58, baseline renal function primarily 0.7-1.2 although 1.0-1.2 were primarily likely during presentation with dehydration thus could be lower baseline, repeat BMP in AM. #4. Hypertension: Given low-normal BP and intractable nausea and emesis will attempt to continue atenolol but hold diuretics and losartan, will have as needed IV hydralazine in the interim. #5. Hyperlipidemia: Given intractable nausea and emesis will hold oral statin regimen, add back once clinically appropriate. #6. Hypothyroidism: Will continue patient on levothyroxine regimen if able to tolerate. #7. Severe protein calorie malnutrition: Evidenced by recent significant weight loss, inability to appropriately have oral intake, reduce BMI, nutrition consulted for recommendations. #8. DVT prophylaxis: Lovenox. #9. CODE status: Patient DELMY is her son who is present and living will is currently in place. Discussed CODE status at length including difference between FULL code, DNR-CCA and DNR-CC status. Following discussions about the differences in these status, requested Full Code status. Advanced Care Planning Face to Face Time: 16 minutes. Charges/Coding Visit Charges Inpatient E&M: 78803 Init Hosp L3 Procedures Hospitalists Procedures: 59606 Advncd Care Plan 30 Min
[2025-03-25 00:42] LABS: Reflex Lactate? Y
--- OUTSIDE RECORDS SUMMARY | 2025-03-25 00:42 | XMS RPT_ITS | CCD ---
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 CONTINUOUS PROCESS.CERTIFIED MEDICAL AIDE, Martha Unavailable Aramis CAGE Apmela Unavailable Jayna CAGE Alea L Unavailable Aramis [...] Primary Care Unavailable OLDER, MARTHA Attending Unavailable [facility] Primary Care Unavailable OLDER, MARTHA Referring Unavailable [facility] Primary Care Unavailable [facility] Primary Care Unavailable OLDER, MARTHA Attending Unavailable OLDER, MARTHA Referring Unavailable [facility] Unavailable Allergies Allergy Classification Reported Allergen(s) Allergy Type Date of Onset Reaction(s) Facility (20 sources) Alendronate; Translations: [ALENDRONATE SODIUM] Drug Allergy 7 Intolerance [facility] Work Phone: (20 sources) Amoxicillin / Clavulanate; Translations: [AMOXICILLIN-POT CLAVULANATE] Drug Allergy 8 Rash, Diarrhea, Swelling, Other: See Comments [facility] Work Phone: (20 sources) Grass pollen; Translations: [GRASS POLLEN] Propensity to adverse reactions 5 [facility] Work Phone: (11 sources) leaves [Other] Propensity to adverse reactions 5 [facility] Work Phone: (11 sources) weeds [Other] Propensity to adverse reactions 5 [facility] Work Phone: (19 sources) valACYclovir; Translations: [VALACYCLOVIR] Drug Allergy 4 GI Upset [facility] (2 sources) Amoxicillin Drug Allergy 5 [facility] (1 source) levoFLOXacin Drug Allergy 5 Abd cramps/diarrhe a [facility] (1 source) metroNIDAZOLE Drug Allergy 5 Abd cramps/diarrhe a [facility] (1 source) Amoxicillin Drug Allergy 5 [facility] (1 source) levoFLOXacin Drug Allergy 5 [facility] (1 source) metroNIDAZOLE Drug Allergy 5 [facility] Repository Medications Current Medications Medication Drug Class(es) [...] on above: Take 1 capsule by mo [facility] once daily. iv contrast (will be provided [...] 09-14-2024 Chronic Other aftercare (1 source) Other mcfp (current) drug therapy; Translations: [Medication management] Onset: [...] Name Value Interpretation Reference Range Facility 25(OH)D3 [facility] 2024 25-hydroxyvitamin D3 [Mass/Vol] 41.8 ng/mL Normal 31.0-80.0 [facility] Comment on above: Order Comment: Speci men Type: BLOOD SPECIMENOrdering Facility: [facility] Address: [address] [place] [address] Result Comment: Clas sification of 25 [place] Vitamin D status: Deficiency/Insufficiency: < or = 30 ng/ml. Sufficiency/Optimal Levels: 31-80 ng/mL Toxicity: > 100 ng/mL. Test performed by chemiluminescent immunoassay. Performed By: #### 1 989-3 ####[facility] [id number] [place] [id number] [place] 25-hydroxyvitamin D3 [Mass/V ol]on 03-21-2025 Interpretation and review of laboratory results Normal [facility] The reference range interval was based on an analysis of samples from healthy adults and may not pertain to children from 0-18 years old. [facility] CBC W Auto Differential pane l (Bld)on 03-21-2025 Basophils (Bld) [#/Vol] 0.13 10*3/uL High [facility] Basophils/100 WBC (Bld) 0.8 % C [facility] Differential cell count method Nom (Bld) Auto [facility] Eosinophils (Bld) [#/Vol] 0.07 10*3/uL [facility] Eosinophils/100 WBC (Bld) 0.4 % [facility] Erythrocyte distribution width (RBC) [Ratio] 13.9 % 11.5 - 15.0 % [facility] Hematocrit (Bld) [Volume fraction] 38.7 % 36.0 - 46.0 % [facility] Hemoglobin (Bld) [Mass/Vol] 12.0 g/dL 11.5 - 15.5 g/dL [facility] Immature granulocytes (Bld) [#/Vol] 0.09 10*3/uL [facility] Immature granulocytes/100 WBC (Bld) 0.6 % [facility] Interpretation and review of laboratory results Abnormal [facility] Lymphocytes (Bld) [#/Vol] 1.66 10*3/uL [facility] Lymphocytes/100 WBC (Bld) 10.5 % [facility] MCH (RBC) [Entitic mass] 31.9 pg 26. 0 - 34.0 pg [facility] MCHC (RBC) [Mass/Vol] 31.0 g/dL 30.5 - 36.0 g/dL [facility] MCV (RBC) [Entitic vol] 102.9 fL High 80.0 - 100.0 fL [facility] Monocytes (Bld) [#/Vol] 1.26 10*3/uL High [facility] Monocytes/100 WBC (Bld) 8.0 % C [facility] Neutrophils (Bld) [#/Vol] 12.57 10*3/uL High [facility] Neutrophils/100 WBC (Bld) 79.7 % [facility] Nucleated RBC (Bld) [#/Vol] NINF [facility] Nucleated RBC/100 WBC (Bld) [Ratio] 0.0 % /100 WBC [facility] Platelet mean volume (Bld) [Entitic vol] 8.4 fL Low 9.0 - 12.7 fL [facility] Platelets (Bld) [#/Vol] 615 10*3/uL High [facility] RBC (Bld) [#/Vol] 3.76 10*6/uL Low 3.90 - 5.2 0 m/uL [facility] WBC (Bld) [#/Vol] 15.78 10*3/uL High [facility] Basophils (Bld) [#/Vol] 0.13 10*3/uL High <0.11 [facility] Comment on above: Order Comment: Speci men Type: BLOOD SPECIMEN Ordering Facility: [facility] Address: [address] [place] [address] Performed By: #### 5 7021-8 #### [facility] CLIA [id number] [address] [place] [address] [place] Basophils/100 WBC (Bld) 0.8 % Normal [facility] Comment on above: Order Comment: Speci men Type: BLOOD SPECIMEN Ordering Facility: [facility] Address: [address] [place] [address] Performed By: #### 5 7021-8 #### [facility] CLIA [id number] [address] [place] [address] [place] Differential cell count method Nom (Bld) Auto Normal [facility] Comment on above: Order Comment: Speci men Type: BLOOD SPECIMEN Ordering Facility: [facility] Address: [address] [place] [address] Performed By: #### 5 7021-8 #### [facility] CLIA [id number] [address] [place] [address] [place] Eosinophils (Bld) [#/Vol] 0.07 10*3/uL Normal <0.46 [facility] Comment on above: Order Comment: Speci men Type: BLOOD SPECIMEN Ordering Facility: [facility] Address: [address] [place] [address] Performed By: #### 5 7021-8 #### [facility] CLIA [id number] [address] [place] [address] [place] Eosinophils/100 WBC (Bld) 0.4 % Normal [facility] Comment on above: Order Comment: Speci men Type: BLOOD SPECIMEN Ordering Facility: [facility] Address: [address] [place] [address] Performed By: #### 5 7021-8 #### [facility] CLIA [id number] [address] [place] [address] [place] Erythrocyte distribution width (RBC) [Ratio] 13.9 % Normal 11.5-15.0 [facility] Comment on above: Order Comment: Speci men Type: BLOOD SPECIMEN Ordering Facility: [facility] Address: [address] [place] [address] Performed By: #### 5 7021-8 #### [facility] CLIA [id number] [address] [place] [address] [place] Hematocrit (Bld) [Volume fraction] 38.7 % Normal 36.0-46.0 [facility] Comment on above: Order Comment: Speci men Type: BLOOD SPECIMEN Ordering Facility: [facility] Address: [address] [place] [address] Performed By: #### 5 7021-8 #### [facility] CLIA [id number] [address] [place] [address] [place] Hemoglobin (Bld) [Mass/Vol] 12.0 g/dL Normal 11.5-15.5 [facility] Comment on above: Order Comment: Speci men Type: BLOOD SPECIMEN Ordering Facility: [facility] Address: [address] [place] [address] Performed By: #### 5 7021-8 #### [facility] CLIA [id number] [address] [place] [address] [place] Immature granulocytes (Bld) [#/Vol] 0.09 10*3/uL Normal <0.10 [facility] Comment on above: Order Comment: Speci men Type: BLOOD SPECIMEN Ordering Facility: [facility] Address: [address] [place] [address] Performed By: #### 5 7021-8 #### [facility] CLIA [id number] [address] [place] [address] [place] Immature granulocytes/100 WBC (Bld) 0.6 % Normal [facility] Comment on above: Order Comment: Speci men Type: BLOOD SPECIMEN Ordering Facility: [facility] Address: [address] [place] [address] Performed By: #### 5 7021-8 #### [facility] CLIA [id number] [address] [place] [address] [place] Lymphocytes (Bld) [#/Vol] 1.66 10*3/uL Normal 1.00-4.00 [facility] Comment on above: Order Comment: Speci men Type: BLOOD SPECIMEN Ordering Facility: [facility] Address: [address] [place] [address] Performed By: #### 5 7021-8 #### [facility] CLIA [id number] [address] [place] [address] [place] Lymphocytes/100 WBC (Bld) 10.5 % Normal [facility] Comment on above: Order Comment: Speci men Type: BLOOD SPECIMEN Ordering Facility: [facility] Address: [address] [place] [address] Performed By: #### 5 7021-8 #### [facility] CLIA [id number] [address] [place] [address] [place] MCH (RBC) [Entitic mass] 31.9 pg Normal 26.0-34.0 [facility] Comment on above: Order Comment: Speci men Type: BLOOD SPECIMEN Ordering Facility: [facility] Address: [address] [place] [address] Performed By: #### 5 7021-8 #### [facility] CLIA [id number] [address] [place] [address] [place] MCHC (RBC) [Mass/Vol] 31.0 g/dL Normal 30.5-36.0 [facility] Comment on above: Order Comment: Speci men Type: BLOOD SPECIMEN Ordering Facility: [facility] Address: [address] [place] [address] Performed By: #### 5 7021-8 #### [facility] CLIA [id number] [address] [place] [address] [place] MCV (RBC) [Entitic vol] 102.9 fL High 80.0-100.0 [facility] Comment on above: Order Comment: Speci men Type: BLOOD SPECIMEN Ordering Facility: [facility] Address: [address] [place] [address] Performed By: #### 5 7021-8 #### [facility] CLIA [id number] [address] [place] [address] [place] Monocytes (Bld) [#/Vol] 1.26 10*3/uL High <0.87 [facility] Comment on above: Order Comment: Speci men Type: BLOOD SPECIMEN Ordering Facility: [facility] Address: [address] [place] [address] Performed By: #### 5 7021-8 #### [facility] CLIA [id number] [address] [place] [address] [place] Monocytes/100 WBC (Bld) 8.0 % Normal [facility] Comment on above: Order Comment: Speci men Type: BLOOD SPECIMEN Ordering Facility: [facility] Address: [address] [place] [address] Performed By: #### 5 7021-8 #### [facility] CLIA [id number] [address] [place] [address] [place] Neutrophils (Bld) [#/Vol] 12.57 10*3/uL High 1.45-7.50 [facility] Comment on above: Order Comment: Speci men Type: BLOOD SPECIMEN Ordering Facility: [facility] Address: [address] [place] [address] Performed By: #### 5 7021-8 #### [facility] CLIA [id number] [address] [place] [address] [place] Neutrophils/100 WBC (Bld) 79.7 % Normal [facility] Comment on above: Order Comment: Speci men Type: BLOOD SPECIMEN Ordering Facility: [facility] Address: [address] [place] [address] Performed By: #### 5 7021-8 #### [facility] CLIA [id number] [address] [place] [address] [place] Nucleated RBC (Bld) [#/Vol] 10*3/uL Normal <0.01 [facility] Comment on above: Order Comment: Speci men Type: BLOOD SPECIMEN Ordering Facility: [facility] Address: [address] [place] [address] Performed By: #### 5 7021-8 #### [facility] CLIA [id number] [address] [place] [address] [place] Nucleated RBC/100 WBC (Bld) [Ratio] 0.0 /100 WBC Normal [facility] Comment on above: Order Comment: Speci men Type: BLOOD SPECIMEN Ordering Facility: [facility] Address: [address] [place] [address] Performed By: #### 5 7021-8 #### [facility] CLIA [id number] [address] [place], [place] [address] [place] Platelet mean volume (Bld) [Entitic vol] 8.4 fL Low 9.0-12.7 [facility] Comment on above: Order Comment: Speci men Type: BLOOD SPECIMEN Ordering Facility: [facility] Address: [address] [place] [address] Performed By: #### 5 7021-8 #### [facility] CLIA [id number] [address] [place] [address] [place] Platelets (Bld) [#/Vol] 615 10*3/uL High 150-400 [facility] Comment on above: Order Comment: Speci men Type: BLOOD SPECIMEN Ordering Facility: [facility] Address: [address] [place] [address] Performed By: #### 5 7021-8 #### [facility] CLIA [id number] [address] [place] [address] [place] RBC (Bld) [#/Vol] 3.76 10*6/uL Low 3.90-5.20 [facility] Comment on above: Order Comment: Speci men Type: BLOOD SPECIMEN Ordering Facility: [facility] Address: [address] [place] [address] Performed By: #### 5 7021-8 #### [facility] CLIA [id number] [address] [place] [address] [place] WBC (Bld) [#/Vol] 15.78 10*3/uL High 3.70-11.00 [facility] Comment on above: Order Comment: Speci men Type: BLOOD SPECIMEN Ordering Facility: [facility] Address: [address] [place] [address] Performed By: #### 5 7021-8 #### [facility] CLIA [id number] [address] [place] [address] [place] CNOVon 03-21-2025 CNOV Office Visit (INTMWS ) PATY RIOS ([id number]) 1940 F Date Time Provider Department 03/21/25 [...] food. She has an appointment with a casino change attendant at the end of April. A recent CT scan revealed a small hiatal hernia, diffuse wall thickening of the sigmoid colon and rectum with fat stranding, no obstruction or perforation, moderate colonic stool, (more content not included)... Normal [facility] Cobalamin (Vitamin B12) [Mas s/Vol]on 03-21-2025 Interpretation and review of laboratory results Normal [facility] Comprehensive metabolic 2000 panelon 03-21-2025 Albumin [Mass/Vol] 3.1 g/dL Low 3.9 - 4.9 g/dL [facility] ALP [Catalytic activity/Vol] 121 U/L 34 - 123 U/L [facility] ALT [Catalytic activity/Vol] U/L Low 7 - 38 U/L [facility] Comment on above: Result rechecked. Anion gap [Moles/Vol] 11 mmol/L 8 - 15 mmol/L [facility] AST [Catalytic activity/Vol] 11 U/L Low 13 - 35 U/L [facility] Bilirubin [Mass/Vol] 0.4 mg/dL 0.2 - 1 .3 mg/dL [facility] Calcium [Mass/Vol] 9.2 mg/dL 8.5 - 10. 2 mg/dL [facility] Chloride [Moles/Vol] 100 mmol/L 98 - 10 7 mmol/L [facility] CO2 [Moles/Vol] 25 mmol/L 22 - 30 mmol/L [facility] Creatinine [Mass/Vol] 0.68 mg/dL 0.58 - 0.96 mg/dL [facility] GFR/1.73 sq M.predicted among non-blacks MDRD (S/P/Bld) [Vol rate/Area] 85 mL/min/{1.73_m2} - PINF [facility] Comment on above: Estimated Glomerular Filtration [...] [Mass/Vol] 99 mg/dL 74 - 99 mg/dL [facility] Comment on above: The [place] Diab[employer] s Association (ADA) provides guidance for [...] Standards of Medical Care in Diabetes 2016, [place] [employer] Association. Diabetes Care. 2016.39(Suppl 1). Interpretation and review of laboratory results Abnormal [facility] Potassium [Moles/Vol] 4.2 mmol/L 3.7 - 5.1 mmol/L [facility] Protein [Mass/Vol] 7.2 g/dL 6.3 - 8.0 g/dL [facility] Sodium [Moles/Vol] 136 mmol/L 136 - 144 mmol/L [facility] Urea nitrogen [Mass/Vol] 17 mg/dL 7 - 21 mg/d L [facility] Albumin [Mass/Vol] 3.1 g/dL Low 3.9-4.9 [facility] Comment on above: Order Comment: Speci men Type: BLOOD SPECIMENOrdering Facility: [facility] Address: [address] [place] [address] [place] [address] Performed By: #### 2 4323-8, 2132-9, 2276-4, 39229-9 ####[facility] [id number] [place] [address] [place] ALP [Catalytic activity/Vol] 121 U/L Normal 34-123 [facility] Comment on above: Order Comment: Speci men Type: BLOOD SPECIMENOrdering Facility: [facility] Address: [address] [place] [address] Performed By: #### 2 4323-8, 9, 4, 56495-7 ####[facility]CLIA [id number] [facility] [address] [address] [place] ALT [Catalytic activity/Vol] U/L Low 7-38 [facility] Comment on above: Order Comment: Speci men Type: BLOOD SPECIMENOrdering Facility: [facility] Address: [address] [place], [place] [address] Result Comment: Resu lt rechecked. Performed By: #### 2 4323-8, 9, 2275-10, 28342-6 ####[facility] [id number] [place] [address] [place] Anion gap [Moles/Vol] 11 mmol/L Normal 8-15 [facility] Comment on above: Order Comment: Speci men Type: BLOOD SPECIMENOrdering Facility: [facility] Address: [address] [place], [place] [address] Performed By: #### 2 4323-8, 9, 4, 46250-5 ####[facility]IA [id number] [place] [address] [place] AST [Catalytic activity/Vol] 11 U/L Low 13-35 [facility] Comment on above: Order Comment: Speci men Type: BLOOD SPECIMENOrdering Facility: [facility] Address: [address] [place] [address] Performed By: #### 2 4323-8, 9, 2275-10, 58437-4 ####[facility] [id number] [facility] [address] [address] [place] Bilirubin [Mass/Vol] 0.4 mg/dL Normal 0.2-1.3 [facility] Comment on above: Order Comment: Speci men Type: BLOOD SPECIMENOrdering Facility: [facility] Address: [address] [place], [place] [address] Performed By: #### 2 4323-8, 9, 2275-10, 49006-2 ####[facility]CLIA [id number] [facility] AVENUED[facility]K [address] [address] [place] Calcium [Mass/Vol] 9.2 mg/dL Normal 8.5-10.2 [facility] Comment on above: Order Comment: Speci men Type: BLOOD SPECIMENOrdering Facility: [facility] Address: [address] [place] [address] Performed By: #### 2 4323-8, 2132-03, 2275-10, 04518-0 ####[facility]CLIA [id number] [facility] [place] [address] [place] Chloride [Moles/Vol] 100 mmol/L Normal 98-107 [facility] Comment on above: Order Comment: Speci men Type: BLOOD SPECIMENOrdering Facility: [facility] Address: [address] [place], [place] [address] Performed By: #### 2 4323-8, 2132-03, 2275-10, 77428-5 ####[facility]CLIA [id number] [facility] [address] [address] [place] CO2 [Moles/Vol] 25 mmol/L Normal 22-30 [facility] Comment on above: Order Comment: Speci men Type: BLOOD SPECIMENOrdering Facility: [facility] Address: [address] [place], [place] [address] Performed By: #### 2 4323-8, 9, 2275-10, 58729-6 ####[facility]CLIA [id number] [facility]ENT[facility] [address] [address] [place] Creatinine [Mass/Vol] 0.68 mg/dL Normal 0.58-0.96 [facility] Comment on above: Order Comment: Tomasz mast Type: BLOOD SPECIMENOrdering Facility: [facility] Address: [address] [place] [id number] Performed By: #### 2 4323-8, 2132-9, 6-4, 63522-8 ####[facility]CLIA [id number] [address] [address] [place] eGFRcr SerPlBld CKD-EPI 2020 85 mL/min/1.73m??? Normal >=60 [facility] Comment on above: Order Comment: Tomasz mast Type: BLOOD SPECIMENOrdering Facility: [facility] Address: [address] [place] [address] Result Comment: Briana mated Glomerular Filtration Rate [...] Performed By: #### 2 4323-8, 2-9, 2275-4, 59185-4 ####[facility]CLIA [id number] [address] [address] [place] Glucose [Mass/Vol] 99 mg/dL Normal 74-99 [facility] Comment on above: Order Comment: Tomasz mast Type: BLOOD SPECIMENOrdering Facility: [facility] Address: [address] [place] [id number] Result Comment: The [place] Diabetes Association (ADA) provides guidance for cutoff [...] Standards of Medical Care in Diabetes 2016, [place] [employer] Association. Diabetes Care. 2016.39(Suppl 1). Performed By: #### 2 4323-8, 9, 2275-10, 10105-8 ####[facility] [id number] [facility] [place] [address] [place] Potassium [Moles/Vol] 4.2 mmol/L Normal 3.7-5.1 [facility] Comment on above: Order Comment: Speci men Type: BLOOD SPECIMENOrdering Facility: [facility] Address: [address] [place], [place] [address] Performed By: #### 2 4323-8, 9, 2275-10, 42194-2 ####[facility]CLIA [id number] [facility] [address] [place] [address] [place] Protein [Mass/Vol] 7.2 g/dL Normal 6.3-8.0 [facility] Comment on above: Order Comment: Speci men Type: BLOOD SPECIMENOrdering Facility: [facility] Address: [address] [place] [address] Performed By: #### 2 4323-8, 2132-03, 2275-10, 83484-2 ####[facility]CLIA [id number] [facility] [address] [address] [place] Sodium [Moles/Vol] 136 mmol/L Normal 136-144 [facility] Comment on above: Order Comment: Speci men Type: BLOOD SPECIMENOrdering Facility: [facility] Address: [address] [place] [address] Performed By: #### 2 4323-8, 2132-03, 2275-10, 84449-7 ####[facility] [id number] [facility] [address] [address] [place] Urea nitrogen [Mass/Vol] 17 mg/dL Normal 7-21 [facility] Comment on above: Order Comment: Speci men Type: BLOOD SPECIMENOrdering Facility: [facility] Address: [address] [place] [address] Performed By: #### 2 4323-8, 2132-03, 2275-10, 03944-3 ####[facility] LABCLIA [id number] [place] [id number] [place] FERRITINon 03-21-2025 Ferritin [Mass/Vol] 359.0 ng/mL High 14.7 - 2 05.1 ng/mL [facility] Ferritin SerPl-mCncon 2024 Ferritin [Mass/Vol] 359.0 ng/mL High 14.7-205.1 [facility] Comment on above: Order Comment: Speci men Type: BLOOD SPECIMENOrdering Facility: [facility] Address: [address] [place] [address] Performed By: #### 2 4323-8, 2132-03, 2275-10, 67690-3 ####[facility] LABCLIA [id number] [place] [id number] [place] Ferritin [Mass/Vol]on 2024 Interpretation and review of laboratory results Abnormal [facility] Iron and Iron binding capaci ty panelon 03-21-2025 Interpretation and review of laboratory results Abnormal [facility] Iron [Mass/Vol] 19 ug/dL Low 41 - 186 ug/dL [facility] Iron binding capacity [Mass/Vol] 212 ug/dL Low 232 - 386 ug/dL [facility] Iron/TIBC [Molar ratio] 9.0 % Low 15.0 - 57.0 % [facility] Iron [Mass/Vol] 19 ug/dL Low 41-186 [facility] Comment on above: Order Comment: Speci men Type: BLOOD SPECIMENOrdering Facility: [facility] Address: [address] [place] [address] Performed By: #### 2 4323-8, 2132-03, 2275-10, 03381-3 ####[facility] LABCLIA [id number] [place] [id number] [place] Iron binding capacity [Mass/Vol] 212 ug/dL Low 232-386 [facility] Comment on above: Order Comment: Speci men Type: BLOOD SPECIMENOrdering Facility: [facility] Address: [address] [place], [place] [address] Performed By: #### 2 4323-8, 2131-9, 6-4, 12432-4 ####[facility] LABIA [id number] [place] [id number] [place] Iron/TIBC [Molar ratio] 9.0 % Low 15.0-57.0 [facility] Comment on above: Order Comment: Speci men Type: BLOOD SPECIMENOrdering Facility: [facility] Address: [address] [place] [address] Performed By: #### 2 4323-8, 9, 2275-10, 61490-5 ####[facility] LABIA [id number] [place] [id number] [place] VITAMIN B12on 03-21-2025 Cobalamin (Vitamin B12) [Mass/Vol] 579 pg/mL 232 - 1245 pg/mL [facility] VITAMIN D 25 HYDROXYon 03-21 25-hydroxyvitamin D3 [Mass/Vol] 41.8 ng/mL 31.0 - 80.0 ng/mL [facility] Comment on above: Classification of 25 [place] Vitamin D status: Deficiency/Insufficiency: < or = 30 ng/ml. Sufficiency/Optimal Levels: 31-80 ng/mL Toxicity: > 100 ng/mL. Test performed by chemiluminescent immunoassay. Vit B12 SerPl-mCncon 025 Cobalamin (Vitamin B12) [Mass/Vol] 579 pg/mL Normal 232-1245 [facility] Comment on above: Order Comment: Speci men Type: BLOOD SPECIMENOrdering Facility: [facility] Address: [address] [place] [address] Performed By: #### 2 4323-8, 2131-9, 2275-, 62526-5 ####[facility] LABCLIA [id number] [place] [address] [place] T4 Free SerPl-mCncon 025 Free T4 [Mass/Vol] 1.3 ng/dL Normal 0.9-1.7 [facility] Comment on above: Order Comment: Speci men Type: BLOOD SPECIMEN [facility] Facility: [facility] Address: [address] [place] [address] Performed By: #### 5 7021-8 #### [facility] CLIA [id number] [address] [place] [address] [place] TSH SerPl-aCncon 03-19-2025 TSH Qn 2.130 m[IU]/L Normal 0.270-4.200 [facility] Comment on above: Order Comment: Speci men Type: BLOOD SPECIMEN [facility] Address: [address] [place] [address] Performed By: #### 5 7021-8 #### [facility] CLIA [id number] [address] [place] [address] [place] CBC W Auto Differential pane l (Bld)on 02-16-2025 Basophils (Bld) [#/Vol] 0.08 10*3/uL [facility] Basophils/100 WBC (Bld) 0.4 % [facility] Differential cell count method Nom (Bld) Auto [facility] Eosinophils (Bld) [#/Vol] 0.04 10*3/uL [facility] Eosinophils/100 WBC (Bld) 0.2 % [facility] Erythrocyte distribution width (RBC) [Ratio] 14.4 % 11.5 - 15.0 % [facility] Hematocrit (Bld) [Volume fraction] 37.7 % 36.0 - 46.0 % [facility] Hemoglobin (Bld) [Mass/Vol] 12.4 g/dL 11.5 - 15.5 g/dL [facility] Immature granulocytes (Bld) [#/Vol] 0.22 10*3/uL High [facility] Immature granulocytes/100 WBC (Bld) 1.1 % [facility] Interpretation and review of laboratory results Abnormal [facility] Lymphocytes (Bld) [#/Vol] 1.37 10*3/uL [facility] Lymphocytes/100 WBC (Bld) 6.8 % [facility] MCH (RBC) [Entitic mass] 31.9 pg 26. 0 - 34.0 pg [facility] MCHC (RBC) [Mass/Vol] 32.9 g/dL 30.5 - 36.0 g/dL [facility] MCV (RBC) [Entitic vol] 96.9 fL 80.0 - 100.0 fL [facility] Monocytes (Bld) [#/Vol] 1.50 10*3/uL High [facility] Monocytes/100 WBC (Bld) 7.4 % C [facility] Neutrophils (Bld) [#/Vol] 17.04 10*3/uL High [facility] Neutrophils/100 WBC (Bld) 84.1 % [facility] Nucleated RBC (Bld) [#/Vol] [facility] Nucleated RBC/100 WBC (Bld) [Ratio] 0.0 % /100 WBC [facility] Platelet mean volume (Bld) [Entitic vol] 7.9 fL Low 9.0 - 12.7 fL [facility] Platelets (Bld) [#/Vol] 575 10*3/uL High [facility] RBC (Bld) [#/Vol] 3.89 10*6/uL Low 3.90 - 5.2 0 m/uL [facility] WBC (Bld) [#/Vol] 20.25 10*3/uL High [facility] Basophils (Bld) [#/Vol] 0.08 10*3/uL Normal <0.11 [facility] Comment on above: Order Comment: Speci men Type: BLOOD SPECIMENOrdering Facility: [facility] Address: [address] [place] [address] Performed By: #### 5 7021-8 ####[facility] COREY AUGUSTA HEALTHTaylor [id number] [place] [address] [place] Basophils/100 WBC (Bld) 0.4 % Normal [facility] Comment on above: Order Comment: Speci men Type: BLOOD SPECIMENOrdering Facility: [facility] Address: [address] [place] [address] Performed By: #### 5 7021-8 ####[facility] MOREYNALDO [id number] [place] [address] [place] Differential cell count method Nom (Bld) Auto Normal [facility] Comment on above: Order Comment: Speci men Type: BLOOD SPECIMENOrdering Facility: [facility] Address: [address] [place] [address] Performed By: #### 5 7021-8 ####[facility] [id number] [place] [address] [place] Eosinophils (Bld) [#/Vol] 0.04 10*3/uL Normal <0.46 [facility] Comment on above: Order Comment: Speci men Type: BLOOD SPECIMENOrdering Facility: [facility] Address: [address] [place] [address] Performed By: #### 5 7021-8 ####[facility] [id number] [place] [address] [place] Eosinophils/100 WBC (Bld) 0.2 % Normal [facility] Comment on above: Order Comment: Speci men Type: BLOOD SPECIMENOrdering Facility: [facility] Address: [address] [place] [address] Performed By: #### 5 7021-8 ####[facility] [id number] [place] [address] [place] Erythrocyte distribution width (RBC) [Ratio] 14.4 % Normal 11.5-15.0 [facility] Comment on above: Order Comment: Speci men Type: BLOOD SPECIMENOrdering Facility: [facility] Address: [address] [place] [address] Performed By: #### 5 7021-8 ####[facility] CENTERWNCLIA [id number] [place] [address] [place] Hematocrit (Bld) [Volume fraction] 37.7 % Normal 36.0-46.0 [facility] Comment on above: Order Comment: Speci men Type: BLOOD SPECIMENOrdering Facility: [facility] Address: [address] [place] [address] Performed By: #### 5 7021-8 ####[facility] SYSTEMLIA [id number] [place] [address] [place] Hemoglobin (Bld) [Mass/Vol] 12.4 g/dL Normal 11.5-15.5 [facility] Comment on above: Order Comment: Speci men Type: BLOOD SPECIMENOrdering Facility: [facility] Address: [address] [place] [address] Performed By: #### 5 7021-8 ####[facility] [id number] [place] [address] [place] Immature granulocytes (Bld) [#/Vol] 0.22 10*3/uL High <0.10 [facility] Comment on above: Order Comment: Speci men Type: BLOOD SPECIMENOrdering Facility: [facility] Address: [address] [place] [address] Performed By: #### 5 7021-8 ####[facility] SYSTEMLIA [id number] [place] [address] [place] Immature granulocytes/100 WBC (Bld) 1.1 % Normal [facility] Comment on above: Order Comment: Speci men Type: BLOOD SPECIMENOrdering Facility: [facility] Address: [address] [place] [address] Performed By: #### 5 7021-8 ####[facility]ITALNCLIA [id number] [place] [address] [place] Lymphocytes (Bld) [#/Vol] 1.37 10*3/uL Normal 1.00-4.00 [facility] Comment on above: Order Comment: Speci men Type: BLOOD SPECIMENOrdering Facility: [facility] Address: [address] [place] [address] Performed By: #### 5 7021-8 ####[facility] [id number] [place] [address] [place] Lymphocytes/100 WBC (Bld) 6.8 % Normal [facility] Comment on above: Order Comment: Speci men Type: BLOOD SPECIMENOrdering Facility: [facility] Address: [address] [place] [address] Performed By: #### 5 7021-8 ####[facility] [id number] [place] [address] [place] MCH (RBC) [Entitic mass] 31.9 pg Normal 26.0-34.0 [facility] Comment on above: Order Comment: Speci men Type: BLOOD SPECIMENOrdering Facility: [facility] Address: [address] [place] [address] Performed By: #### 5 7021-8 ####[facility] [id number] [place] [address] [place] MCHC (RBC) [Mass/Vol] 32.9 g/dL Normal 30.5-36.0 [facility] Comment on above: Order Comment: Speci men Type: BLOOD SPECIMENOrdering Facility: [facility] Address: [address] [place] [address] Performed By: #### 5 7021-8 ####[facility] HOSPITALNCLI [id number] [place] [address] [place] MCV (RBC) [Entitic vol] 96.9 fL Normal 80.0-100.0 [facility] Comment on above: Order Comment: Speci men Type: BLOOD SPECIMENOrdering Facility: [facility] Address: [address] [place] [address] Performed By: #### 5 7021-8 ####[facility] NHI [id number] [place] [address] [place] Monocytes (Bld) [#/Vol] 1.50 10*3/uL High <0.87 [facility] Comment on above: Order Comment: Speci men Type: BLOOD SPECIMENOrdering Facility: [facility] Address: [address] [place] [address] Performed By: #### 5 7021-8 ####[facility] [id number] [place] [address] [place] Monocytes/100 WBC (Bld) 7.4 % Normal [facility] Comment on above: Order Comment: Speci men Type: BLOOD SPECIMENOrdering Facility: [facility] Address: [address] [place] [address] Performed By: #### 5 7021-8 ####[facility] [id number] [place] [address] [place] Neutrophils (Bld) [#/Vol] 17.04 10*3/uL High 1.45-7.50 [facility] Comment on above: Order Comment: Speci men Type: BLOOD SPECIMENOrdering Facility: [facility] Address: [address] [place] [address] Performed By: #### 5 7021-8 ####[facility] SYSTEMLIA [id number] [place] [address] [place] Neutrophils/100 WBC (Bld) 84.1 % Normal [facility] Comment on above: Order Comment: Speci men Type: BLOOD SPECIMENOrdering Facility: [facility] Address: [address] [place] [address] Performed By: #### 5 7021-8 ####[facility] MOIRINALIA [id number] [place] [address] [place] Nucleated RBC (Bld) [#/Vol] 10*3/uL Normal <0.01 [facility] Comment on above: Order Comment: Speci men Type: BLOOD SPECIMENOrdering Facility: [facility] Address: [address] [place] [address] Performed By: #### 5 7021-8 ####[facility] HOSPITALPABLOA [id number] [place] [address] [place] Nucleated RBC/100 WBC (Bld) [Ratio] 0.0 /100 WBC Normal [facility] Comment on above: Order Comment: Speci men Type: BLOOD SPECIMENOrdering Facility: [facility] Address: [address] [place] [address] Performed By: #### 5 7021-8 ####[facility] [id number] [place] [address] [place] Platelet mean volume (Bld) [Entitic vol] 7.9 fL Low 9.0-12.7 [facility] Comment on above: Order Comment: Speci men Type: BLOOD SPECIMENOrdering Facility: [facility] Address: [address] [place] [address] Performed By: #### 5 7021-8 ####[facility]ITALANA MLIA [id number] [place] [address] [place] Platelets (Bld) [#/Vol] 575 10*3/uL High 150-400 [facility] Comment on above: Order Comment: Speci men Type: BLOOD SPECIMENOrdering Facility: [facility] Address: [address] [place] [address] Performed By: #### 5 7021-8 ####[facility]ITALNCLIA [id number] [place] [address] [place] RBC (Bld) [#/Vol] 3.89 10*6/uL Low 3.90-5.20 [facility] Comment on above: Order Comment: Speci men Type: BLOOD SPECIMENOrdering Facility: [facility] Address: [address] [place] [address] Performed By: #### 5 7021-8 ####[facility] EMERGENCYTaylor [id number] [place] [address] [place] WBC (Bld) [#/Vol] 20.25 10*3/uL High 3.70-11.00 [facility] Comment on above: Order Comment: Speci men Type: BLOOD SPECIMENOrdering Facility: [facility] Address: [address] [place] [address] Performed By: #### 5 7021-8 ####[facility] [id number] [address] [place] CNOVon 02-16-2025 CNOV Office Visit (INTMWS ) PATY RIOS ([id number]) 1940 F Date Time Provider Department 02/16/25 12:20 PM MARTHA FUNK INTMWS During your visit today, we recorded the following information about you: Pulse Respiration Blood pressure Weight 73/minute 16/minute 104/60 43.5 kg Martha Funk APRN.CERTIFIED MEDICAL AIDE 02/16/2025 7:00 PM Signed CC: Patient presents with: Recheck: ER follow up, no appetite, fatigue HPI Paty Rios is a 84 year old female who presents today for ER follow up. Recording using Dizzion software for draft documentation of the visit was discussed with the patient/authorized bilingual inside sales representative; all questions welcomed and answered. Patient/authorized bilingual inside sales representative agreed to proceed Colitis: - Recent [...] DATA REVIEW (more content not included)... Normal [facility] metabolic 2000 panelOrdered By: Betsey Mooney on 02-16-2025 Albumin [Mass/Vol] 2.9 g/dL Low 3.9 - 4.9 g/dL [facility] ALP [Catalytic activity/Vol] 90 U/L 34 - 123 U/L [facility] ALT [Catalytic activity/Vol] 7 U/L 7 - 38 U/L [facility] Anion gap [Moles/Vol] 9 mmol/L 8 - 15 mmol/L [facility] AST [Catalytic activity/Vol] 16 U/L 13 - 35 U/L [facility] Bilirubin [Mass/Vol] 0.4 mg/dL 0.2 - 1 .3 mg/dL [facility] Calcium [Mass/Vol] 9.1 mg/dL 8.5 - 10. 2 mg/dL [facility] Chloride [Moles/Vol] 101 mmol/L 98 - 10 7 mmol/L [facility] CO2 [Moles/Vol] 26 mmol/L 22 - 30 mmol/L [facility] Creatinine [Mass/Vol] 0.96 mg/dL 0.58 - 0.96 mg/dL [facility] GFR/1.73 sq M.predicted among non-blacks MDRD (S/P/Bld) [Vol rate/Area] 58 mL/min/{1.73_m2} Low - PINF [facility] Comment on above: Estimated Glomerular Filtration [...] 132 mg/dL High 74 - 99 mg/dL [facility] Comment on above: The [place] Diab[employer] Association (ADA) provides guidance for [...] Standards of Medical Care in Diabetes 2016, [place] [employer]. Diabetes Care. 2016.39(Suppl 1). Interpretation and review of laboratory results Abnormal [facility] Potassium [Moles/Vol] 3.5 mmol/L Low 3.7 - 5.1 mmol/L [facility] Protein [Mass/Vol] 6.7 g/dL 6.3 - 8.0 g/dL [facility] Sodium [Moles/Vol] 136 mmol/L 136 - 144 mmol/L [facility] Urea nitrogen [Mass/Vol] 34 mg/dL High 7 - 21 mg/d L [facility] Comprehensive metabolic 2000 panelon 02-16-2025 Albumin [Mass/Vol] 2.9 g/dL Low 3.9-4.9 [facility] Comment on above: Order Comment: Speci men Type: BLOOD SPECIMEN [facility] Address: [address] [place] [address] Performed By: #### 5 7021-8 #### [facility] CLIA [id number] [address] [place] [address] [place] ALP [Catalytic activity/Vol] 90 U/L Normal 34-123 [facility] Comment on above: Order Comment: Speci men Type: BLOOD SPECIMEN [facility] Address: [address] [place] [address] Performed By: #### 5 7021-8 #### [facility] CLIA [id number] [address] [place] [address] [place] ALT [Catalytic activity/Vol] 7 U/L Normal 7-38 [facility] Comment on above: Order Comment: Speci men Type: BLOOD SPECIMEN [facility]: [facility] Address: [address] [place] [address] Performed By: #### 5 7021-8 #### [facility] CLIA [id number] [address] [place] [address] [place] Anion gap [Moles/Vol] 9 mmol/L Normal 8-15 [facility] Comment on above: Order Comment: Speci men Type: BLOOD SPECIMEN [facility] Address: [address] [place] [address] Performed By: #### 5 7021-8 #### [facility] CLIA [id number] [address] [place] [address] [place] AST [Catalytic activity/Vol] 16 U/L Normal 13-35 [facility] Comment on above: Order Comment: Speci men Type: BLOOD SPECIMEN [facility] Address: [address] [place] [address] Performed By: #### 5 7021-8 #### [facility] CLIA [id number] [address] [place] [address] [place] Bilirubin [Mass/Vol] 0.4 mg/dL Normal 0.2-1.3 [facility] Comment on above: Order Comment: Speci men Type: BLOOD SPECIMEN [facility] Address: [address] [place] [address] Performed By: #### 5 7021-8 #### [facility] CLIA [id number] [address] [place] [address] [place] Calcium [Mass/Vol] 9.1 mg/dL Normal 8.5-10.2 [facility] Comment on above: Order Comment: Speci men Type: BLOOD SPECIMEN [facility]: [facility] Address: [address] [place] [address] Performed By: #### 5 7021-8 #### [facility] CLIA [id number] [address] [place] [address] [place] Chloride [Moles/Vol] 101 mmol/L Normal 98-107 [facility] Comment on above: Order Comment: Speci men Type: BLOOD SPECIMEN [facility] Facility: [facility] Address: [address] [place] [address] Performed By: #### 5 7021-8 #### [facility] CLIA [id number] [address] [place] [address] [place] CO2 [Moles/Vol] 26 mmol/L Normal 22-30 [facility] Comment on above: Order Comment: Speci men Type: BLOOD SPECIMEN [facility] Facility: [facility] Address: [address] [place] [address] Performed By: #### 5 7021-8 #### [facility] CLIA [id number] [address] [place] [address] [place] Creatinine [Mass/Vol] 0.96 mg/dL Normal 0.58-0.96 [facility] Comment on above: Order Comment: Speci men Type: BLOOD SPECIMEN [facility]ing Facility: [facility] Address: [address] [place] [address] Performed By: #### 5 7021-8 #### [facility] CLIA [id number] [address] [place] [address] [place] eGFRcr SerPlBld CKD-EPI 2020 58 mL/min/1.73m??? Low >=60 [facility] Comment on above: Order Comment: Speci men Type: BLOOD SPECIMEN [facility] Facility: [facility] Address: [address] [place] [address] Result Comment: Briana mated Glomerular Filtration Rate [...] GFR. Performed By: #### 5 7021-8 #### [facility] CLIA [id number] [address] [place] [address] [place] Glucose [Mass/Vol] 132 mg/dL High 74-99 [facility] Comment on above: Order Comment: Speci men Type: BLOOD SPECIMEN [facility]ing Facility: [facility] Address: [address] [place] [address] Result Comment: The [place] Diabetes Association (ADA) provides guidance for cutoff [...] Standards of Medical Care in Diabetes 2016, [place] [employer]. Diabetes Care. 2016.39(Suppl 1). Performed By: #### 5 7021-8 #### [facility] CLIA [id number] [address] [place] [address] [place] Potassium [Moles/Vol] 3.5 mmol/L Low 3.7-5.1 [facility] Comment on above: Order Comment: Speci men Type: BLOOD SPECIMEN [facility]ing Facility: [facility] Address: [address] [place] [address] Performed By: #### 5 7021-8 #### [facility] CLIA [id number] [address] [place] [address] [place] Protein [Mass/Vol] 6.7 g/dL Normal 6.3-8.0 [facility] Comment on above: Order Comment: Speci men Type: BLOOD SPECIMEN [facility]ing Facility: [facility] Address: [address] [place] [address] Performed By: #### 5 7021-8 #### [facility] CLIA [id number] [address] [place] [address] [place] Sodium [Moles/Vol] 136 mmol/L Normal 136-144 [facility] Comment on above: Order Comment: Speci men Type: BLOOD SPECIMEN [facility]ing Facility: [facility] Address: [address] [place] [address] Performed By: #### 5 7021-8 #### [facility] CLIA [id number] [address] [place] [address] [place] Urea nitrogen [Mass/Vol] 34 mg/dL High 7-21 [facility] Comment on above: Order Comment: Speci men Type: BLOOD SPECIMEN [facility]ing Facility: [facility] Address: [address] [place] [address] Performed By: #### 5 7021-8 #### [facility] CLIA [id number] [address] [place] [address] [place] UA DIP, URINE (POC)on 2024 BILIRUBIN UA (POCT) Negative Negative [facility] CLARITY UA (POCT) Clear [facility] COLOR UA (POCT) Yellow [facility] GLUCOSE UA (POCT) Negative Negative mg/dL [facility] Hemoglobin Ql (U) Trace-lysed Abnormal Negative [facility] Interpretation and review of laboratory results Abnormal [facility] KETONE UA (POCT) Negative Negative mg/dL [facility] LEUKOCYTES UA (POCT) Negative Negative [facility] NITRITE UA (POCT) Negative Negative [facility] PH UA (POCT) 6.0 4.5 - 8.0 [facility] Protein Ql (U) Trace Abnormal Negative mg/dL [facility] SPECIFIC GRAVITY UA (POCT) 1.020 1.005 - 1.030 [facility] UROBILINOGEN UA (POCT) 0.2 [place] l E.U./dL [facility] Location:[address], [address] [place] [address] POINT OF CARE [facility] Urinalysis complete panel (U )on 02-16-2025 Bacteria LM.HPF (Urine sed) [#/Area] Negative Normal Negative [facility] Comment on above: Order Comment: Speci men Type: BLOOD SPECIMEN Ordering Facility: [facility] Address: [address] [place] [address] Performed By: #### 5 7021-8 #### [facility] CLIA [id number] [address] [place] [address] [place] Bilirubin Ql (U) Negative Normal Negative [facility] Comment on above: Order Comment: Speci men Type: BLOOD SPECIMEN Ordering Facility: [facility] Address: [address] [place] [address] Performed By: #### 5 7021-8 #### [facility] CLIA [id number] [address] [place] [address] [place] Clarity (Unsp spec) Clear Normal Clear [facility] Comment on above: Order Comment: Speci men Type: BLOOD SPECIMEN Ordering Facility: [facility] Address: [address] [place] [address] Performed By: #### 5 7021-8 #### [facility] CLIA [id number] [address] [place] [address] [place] [facility] Color (U) Yellow Normal Yellow [facility] Comment on above: Order Comment: Speci men Type: BLOOD SPECIMEN Ordering Facility: [facility] Address: [address] [place] [address] Performed By: #### 5 7021-8 #### [facility] CLIA [id number] [address] [place] [address] [place] Epithelial cells LM.HPF (Urine sed) [#/Area] None Seen Normal [facility] Comment on above: Order Comment: Speci men Type: BLOOD SPECIMEN Ordering Facility: [facility] Address: [address] [place] [address] Performed By: #### 5 7021-8 #### [facility] CLIA [id number] [address] [place], [place] [id number] [place] Glucose Test strip (U) [Mass/Vol] Negative Normal Negative [facility] Comment on above: Order Comment: Speci men Type: BLOOD SPECIMEN Ordering Facility: [facility] Address: [address] [place] [address] Performed By: #### 5 7021-8 #### [facility] CLIA [id number] [address] [place], [place] [id number] [place] Hemoglobin Ql (U) Negative Normal Negative [facility] Comment on above: Order Comment: Speci men Type: BLOOD SPECIMEN Ordering Facility: [facility] Address: [address] [place] [address] Performed By: #### 5 7021-8 #### [facility] CLIA [id number] [address] [place] [address] [place] Hyaline casts (Urine sed) [#/Area] 1-3 /LPF Abnormal 0 /LPF [facility] Comment on above: Order Comment: Speci men Type: BLOOD SPECIMEN Ordering Facility: [facility] Address: [address] [place] [address] Performed By: #### 5 7021-8 #### [facility] CLIA [id number] [address] [place] [address] [place] Ketones Ql (U) Negative Normal Negative [facility] Comment on above: Order Comment: Speci men Type: BLOOD SPECIMEN Ordering Facility: [facility] Address: [address] [place] [address] Performed By: #### 5 7021-8 #### [facility] CLIA [id number] [address] [place] [address] [place] Leukocyte esterase Test strip Ql (U) Negative Normal Negative [facility] Comment on above: Order Comment: Speci men Type: BLOOD SPECIMEN Ordering Facility: [facility] Address: [address] [place] [address] Performed By: #### 5 7021-8 #### [facility] CLIA [id number] [address] [place] [address] [place] Nitrite Ql (U) Negative Normal Negative [facility] Comment on above: Order Comment: Speci men Type: BLOOD SPECIMEN Ordering Facility: [facility] Address: [address] [place] [address] Performed By: #### 5 7021-8 #### [facility] CLIA [id number] [address] [place] [address] [place] pH (U) 5.5 [pH] Normal 5.0-8.0 [facility] Comment on above: Order Comment: Speci men Type: BLOOD SPECIMEN Ordering Facility: [facility] Address: [address] [place] [address] Performed By: #### 5 7021-8 #### [facility] CLIA [id number] [address] [place] [address] [place] Protein (U) [Mass/Vol] Trace Abnormal Negative [facility] Comment on above: Order Comment: Speci men Type: BLOOD SPECIMEN Ordering Facility: [facility] Address: [address] [place] [address] Performed By: #### 5 7021-8 #### [facility] CLIA [id number] [address] [place] [address] [place] RBC LM.HPF (Urine sed) [#/Area] 3-5 /HPF Abnormal 0-2 /HPF [facility] Comment on above: Order Comment: Speci men Type: BLOOD SPECIMEN Ordering Facility: [facility] Address: [address] [place] [address] Performed By: #### 5 7021-8 #### [facility] CLIA [id number] [address] [place] [address] [place] Specific gravity (U) [Rel density] 1.024 Normal 1.005-1.030 [facility] Comment on above: Order Comment: Speci men Type: BLOOD SPECIMEN Ordering Facility: [facility] Address: [address] [place] [address] Performed By: #### 5 7021-8 #### [facility] CLIA [id number] [address] [place] [address] [place] Urobilinogen Ql (U) 1.0 EU/dL Normal 0.2-1.0 EU/dL [facility] Comment on above: Order Comment: Speci men Type: BLOOD SPECIMEN Ordering Facility: [facility] Address: [address] [place] [address] Performed By: #### 5 7021-8 #### [facility] CLIA [id number] [address] [place] [address] [place] WBC LM.HPF (Urine sed) [#/Area] 0-5 /HPF Normal 0-5 /HPF [facility] Comment on above: Order Comment: Speci men Type: BLOOD SPECIMEN Ordering Facility: [facility] Address: [address] [place] [address] Performed By: #### 5 7021-8 #### [facility] CLIA [id number] [address] [place] [address] [place] Absolute lymphocyte countOrd ered By: Suhail Delacruz on 02-14-2025 Lymphocytes Auto (Unsp spec) [#/Vol] 1.05 10*3/uL 0.83-4.51 [facility] Absolute neutrophil countOrd ered By: Suhial Delacruz on 02-14-2025 Neutrophils (Bld) [#/Vol] 17.2 10*3/uL High 2.0-7.7 [facility] Anion gap in Serum or Plasma Ordered By: Suhail Delacruz on 02-14-2025 Anion gap [Moles/Vol] 21 mmol/L High 5-15 [facility] Automated lymphocyte count a s percentage of total leukocytesOrdered By: Suhail Delacruz on 02-14-2025 Lymphocytes/100 WBC Auto (Unsp spec) 5.3 % Low 19-41 [facility] BUN/creatinine ratioOrdered By: Suhailpatsy Delacruz on 02-14-2025 Urea nitrogen/Creatinine [Mass ratio] 29.8 mg/mg High 10-20 [facility] Basic Metabolic Profile (BMP )on 02-14-2025 BUN/CRE 29.8 RATIO High 04-25 [facility] Comment on above: Performed By: #### L 500.2500, L100.0100 #### [facility] [address] [place], [address] Calcium [Mass/Vol] 9.5 mg/dL Normal 7.6-11.0 [facility] Comment on above: Performed By: #### L 500.2500, L100.0100 #### [facility] [address] [place], [address] Chloride [Moles/Vol] 98 mmol/L Normal 98-108 [facility] Comment on above: Performed By: #### L 500.2500, L100.0100 #### [facility] [address] [place], [address] CO2 [Moles/Vol] 20.7 mmol/L Low 21.0-32.0 [facility] Comment on above: Performed By: #### L 500.2500, L100.0100 #### [facility] [address] [place], [address] Creatinine [Mass/Vol] 1.08 mg/dL Normal 0.70-1.20 [facility] Comment on above: Performed By: #### L 500.2500, L100.0100 #### [facility] [address] [place] [place], [address] ECRCL 25.26 ml/min Low 50-250 [facility] Comment on above: Performed By: #### L 500.2500, L100.0100 #### [facility] [address] [place], [address] GAP 21 High 5-15 [facility] Comment on above: Performed By: #### L 500.2500, L100.0100 #### [facility] [address] [place], [address] GFR/1.73 sq M.predicted among non-blacks MDRD (S/P/Bld) [Vol rate/Area] 50 mL/min/{1.73_m2} Low >60 [facility] Comment on above: Result Comment: mL/m in/1.73m2 CKD-EPI Creatinine Equation (2020) Performed By: #### L 500.2500, L100.0100 #### [facility] [address] [place], [address] Glucose [Mass/Vol] 153 mg/dL High 70-99 [facility] Comment on above: Performed By: #### L 500.2500, L100.0100 #### [facility] [address] [place], [address] Potassium [Moles/Vol] 3.4 mmol/L Normal 3.3-5.1 [facility] Comment on above: Performed By: #### L 500.2500, L100.0100 #### [facility] [address] [place], [address] Sodium [Moles/Vol] 140 mmol/L Normal 133-145 [facility] Comment on above: Performed By: #### L 500.2500, L100.0100 #### [facility] [address] [place], [address] Urea nitrogen [Mass/Vol] 32 mg/dL High 4-19 [facility] Comment on above: Performed By: #### L 500.2500, L100.0100 #### [facility] [address] [place], [address] Basophil percentageOrdered B y: Suhail Delacruz on 02-14-2025 Basophils/100 WBC (Bld) 0.4 % 0-1 [facility] CBC W/Diff, Automatedon 02-04 Absolute Lymph 1.05 X10 3/uL Normal 0.83-4.51 [facility] Comment on above: Performed By: #### L 500.2500, L100.0100 #### [facility] [address] [place], [address] Absolute Neut 17.2 X10 3/uL High 2.0-7.7 [facility] Comment on above: Performed By: #### L 500.2500, L100.0100 #### [facility] [address] [place] [place], [address] Basophils/100 WBC (Bld) 0.4 % Normal 0-1 [facility] Comment on above: Performed By: #### L 500.2500, L100.0100 #### [facility] [address] [place], [address] Eosinophils/100 WBC (Bld) 0.1 % Normal 0-5 [facility] Comment on above: Performed By: #### L 500.2500, L100.0100 #### [facility] [address] [place], [address] Erythrocyte distribution width (RBC) [Ratio] 13.9 % Normal 11.6-14.6 [facility] Comment on above: Performed By: #### L 500.2500, L100.0100 #### [facility] [address] [place], [address] Hematocrit (Bld) [Volume fraction] 40.2 % Normal 37-47 [facility] Comment on above: Performed By: #### L 500.2500, L100.0100 #### [facility] [address] [place], [address] Hemoglobin (Bld) [Mass/Vol] 13.3 g/dL Normal 12.0-15.0 [facility] Comment on above: Performed By: #### L 500.2500, L100.0100 #### [facility] [address] [place], [address] IG% 0.900 Normal 0.0-0.9 [facility] Comment on above: Result Comment: IG% - Immature Granulocytes (promyelocytes, myelocytes and metamyelocytes) > 1% indicates that a LEFT SHIFT is Present. Performed By: #### L 500.2500, L100.0100 #### [facility] [address] [place], [address] Lymphocytes/100 WBC (Bld) 5.3 % Low 19-41 [facility] Comment on above: Performed By: #### L 500.2500, L100.0100 #### [facility] [address] [place], [address] MCH (RBC) [Entitic mass] 32.0 pg Normal 27.0-32.0 [facility] Comment on above: Performed By: #### L 500.2500, L100.0100 #### [facility] [address] [place], [address] MCHC (RBC) [Mass/Vol] 33.1 g/dL Normal 32-36 [facility] Comment on above: Performed By: #### L 500.2500, L100.0100 #### [facility] [address] [place], [address] MCV (RBC) [Entitic vol] 96.6 fL Normal 81-99 [facility] Comment on above: Performed By: #### L 500.2500, L100.0100 #### [facility] [address] [place], [address] Monocytes/100 WBC (Bld) 7.3 % Normal 0-10 [facility] Comment on above: Performed By: #### L 500.2500, L100.0100 #### [facility] [address] [place], [address] Neutrophils/100 WBC (Bld) 86.0 % High 47-70 [facility] Comment on above: Performed By: #### L 500.2500, L100.0100 #### [facility] [address] [place], [address] Nucleated RBC (Bld) [#/Vol] 0 10*3/uL Normal 0-5 [facility] Comment on above: Performed By: #### L 500.2500, L100.0100 #### [facility] [address] [place], [address] Platelet mean volume (Bld) [Entitic vol] 7.7 fL Normal 6.2-12.0 [facility] Comment on above: Performed By: #### L 500.2500, L100.0100 #### [facility] [address] [place], [address] Platelets (Bld) [#/Vol] 701 10*3/uL High 150-450 [facility] Comment on above: Performed By: #### L 500.2500, L100.0100 #### [facility] [address] [place], [address] RBC (Bld) [#/Vol] 4.16 10*6/uL Low 4.2-5.4 [facility] Comment on above: Performed By: #### L 500.2500, L100.0100 #### [facility] [address] [place], [address] RDW SD 49.2 fl High 35.1-43.9 [facility] Comment on above: Performed By: #### L 500.2500, L100.0100 #### [facility] [address] [place], [address] WBC (Bld) [#/Vol] 20.0 10*3/uL High 4.4-11.0 [facility] Comment on above: Performed By: #### L 500.2500, L100.0100 #### [facility] [address] [place], [address] Carbon dioxide, total [Moles /volume] in Central venous bloodOrdered By: Suhail Delacruz on 02-14-2025 CO2 [Moles/Vol] 20.7 mmol/L Low 21.0-32.0 [facility] Chloride assayOrdered By: Gato Delacruz on 02-14-2025 Chloride [Moles/Vol] 98 mmol/L 98-108 [facility] Emergency Department Summary on 02-14-2025 Emergency Department Summary [facility] Medical Records Department [address] [place] [address] Emergency Department Summary 02/14/25 MR#: [id number] Acct: [id number] Name: PATY RIOS Rep #: [id number] : 1940 84 From: Suhail Delacruz MD [...] to o (more content not included)... Normal [facility] Eosinophil percentageOrdered By: Suhail Delacruz on 02-14-2025 Eosinophils/100 WBC (Bld) 0.1 % 0-5 [facility] Erythrocyte distribution wid th ratioOrdered By: Suhail Delacruz on 02-14-2025 Erythrocyte distribution width (RBC) [Ratio] 13.9 % 11.6-14.6 [facility] Erythrocyte distribution wid th standard deviationOrdered By: Suhailpatsy Delacruz on 02-14-2025 Erythrocyte distribution width (RBC) [Ratio] 49.2 fl High 35.1-43.9 [facility] Glomerular filtration rate ( GFR) estimation/1.73 sq m using serum, plasma, or whole bOrdered By: Suhail Delacruz on 02-14-2025 GFR/1.73 sq M.predicted among non-blacks MDRD (S/P/Bld) [Vol rate/Area] 50 mL/min/{1.73_m2} Low >60 [facility] Comment on above: mL/min/1.73m2 CKD-EP I Creatinine Equation (2020) Hematocrit Auto (Bld) [Volum e fraction]Ordered By: Suhail Delacruz on 02-14-2025 Hematocrit (Bld) [Volume fraction] 40.2 % 37-47 [facility] Hemoglobin measurementOrdere d By: Suhail Delacruz on 02-14-2025 Hemoglobin (Bld) [Mass/Vol] 13.3 g/dL 12.0-15.0 [facility] Immature granulocytes/100 WB C Auto (Bld)Ordered By: Suhail Delacruz on 02-14-2025 Immature granulocytes/100 WBC (Bld) 0.900 % 0.0-0.9 [facility] Comment on above: IG% - Immature Granu locytes (promyelocytes, myelocytes and metamyelocytes) > 1% indicates that a LEFT SHIFT is Present. MCV (mean corpuscular volume ) determinationOrdered By: Suhail Delacruz on 02-14-2025 MCV (RBC) [Entitic vol] 96.6 fL 81-99 [facility] Mean corpuscular hemoglobin (MCH) determinationOrdered By: Suhailpatsy Delacruz on 02-14-2025 MCH (RBC) [Entitic mass] 32.0 pg 27.0-32.0 [facility] Mean corpuscular hemoglobin concentration (MCHC) determinationOrdered By: Suhail Delacruz on 02-14-2025 MCHC (RBC) [Mass/Vol] 33.1 g/dL 32-36 [facility] Mean platelet volume determi nationOrdered By: Suhail Delacruz on 02-14-2025 Platelet mean volume (Bld) [Entitic vol] 7.7 fL 6.2-12.0 [facility] Monocyte percentageOrdered B y: Suhail Delacruz on 02-14-2025 Monocytes/100 WBC (Bld) 7.3 % 0-10 [facility] Neutrophil percentageOrdered By: Suhail Delacruz on 02-14-2025 Neutrophils/100 WBC (Bld) 86.0 % High 47-70 [facility] Nucleated red blood cell per centageOrdered By: Suhail Delacruz on 02-14-2025 Nucleated RBC/100 WBC (Bld) [Ratio] 0 % 0-5 [facility] Platelet countOrdered By: [facility] Jayme on 02-14-2025 Platelets (Bld) [#/Vol] 701 10*3/uL High 150-450 [facility] Potassium measurement (mass/ volume)Ordered By: Suhail Delacruz on 02-14-2025 Potassium (Unsp spec) [Mass/Vol] 3.4 mmol/L 3.3-5.1 [facility] RBC Auto (Bld) [#/Vol]Ordere d By: Suhail Delacruz on 02-14-2025 RBC (Bld) [#/Vol] 4.16 10*6/uL Low 4.2-5.4 [facility] Serum creatinine measurement (mass/volume)Ordered By: Suhail Delacruz on 02-14-2025 Creatinine [Mass/Vol] 1.08 mg/dL 0.70-1.20 [facility] Serum glucose measurement (m ass/volume)Ordered By: Suhail Delacruz on 02-14-2025 Glucose [Mass/Vol] 153 mg/dL High 70-99 [facility] Serum or plasma calcium jaki urement (mass/volume)Ordered By: Suhail Delacruz on 02-14-2025 Calcium [Mass/Vol] 9.5 mg/dL 7.6-11.0 [facility] Serum or plasma urea nitroge n measurement (mass/volume)Ordered By: Suhailpatsy Priesto on 02-14-2025 Urea nitrogen [Mass/Vol] 32 mg/dL High 4-19 [facility] Sodium levelOrdered By: [facility] on 02-14-2025 Sodium [Moles/Vol] 140 mmol/L 133-145 [facility] White blood cell (WBC) count Ordered By: [facility] on 02-14-2025 WBC (Bld) [#/Vol] 20.0 10*3/uL High 4.4-11.0 [facility] Abdomen/Pelvis W IV Cont ONL Yon 02-10-2025 Abdomen/Pelvis W IV Cont ONLY [facility] Imaging Services [address] [place] [id number] Abdomen/Pelvis W IV Cont ONLY MR#: [id number] Acct: [id number] Name: PATY RIOS Rep #: [id number] : 1940 F 84 From: Erna Rubio MD PCP: Dr. Russ Barone MD Status: [facility] ER Study: Abdomen/Pelvis W IV Cont ONLY Date of Exam: Exam# [id number] Ordering Dr: Elvira Campbell PROCEDURE: ABDOMEN/PELVIS W [...] of the ampulla is possible. Reading Location: [id number] CC: Dr. Russ Barone MD; ARIANA Leiva Billet Recorder: Signed Normal [facility] Absolute lymphocyte countOrd ered By: Elvira Campbell on 02-10-2025 Lymphocytes Auto (Unsp spec) [#/Vol] 1.16 10*3/uL 0.83-4.51 [facility] Absolute neutrophil countOrd ered By: Elvira Campbell on 02-10-2025 Neutrophils (Bld) [#/Vol] 15.6 10*3/uL High 2.0-7.7 [facility] Anion gap in Serum or Plasma Ordered By: Elvira Campbell on 02-10-2025 Anion gap [Moles/Vol] 15 mmol/L 5-15 [facility] Automated lymphocyte count a s percentage of total leukocytesOrdered By: Elvira Campbell on 02-10-2025 Lymphocytes/100 WBC Auto (Unsp spec) 6.1 % Low 19-41 [facility] BUN/creatinine ratioOrdered By: Elvira Campbell on 02-10-2025 Urea nitrogen/Creatinine [Mass ratio] 24.1 mg/mg High 10-20 [facility] Basic Metabolic Profile (BMP )on 02-10-2025 BUN/CRE 24.1 RATIO High 10-20 [facility] Comment on above: Performed By: #### L 100.0100, L500.2500, L503.6005 #### [facility] [address] [place], [address] Calcium [Mass/Vol] 9.2 mg/dL Normal 7.6-11.0 [facility] Comment on above: Performed By: #### L 100.0100, L500.2500, L503.6005 #### [facility] [address] [place], [address] Chloride [Moles/Vol] 96 mmol/L Low 98-108 [facility] Comment on above: Performed By: #### L 100.0100, L500.2500, L503.6005 #### [facility] [address] [place], [address] CO2 [Moles/Vol] 24.7 mmol/L Normal 21.0-32.0 [facility] Comment on above: Performed By: #### L 100.0100, L500.2500, L503.6005 #### [facility] [address] [place], [address] Creatinine [Mass/Vol] 1.20 mg/dL Normal 0.70-1.20 [facility] Comment on above: Performed By: #### L 100.0100, L500.2500, L503.6005 #### [facility] [address] [place], [address] ECRCL 23.62 ml/min Low 50-250 [facility] Comment on above: Performed By: #### L 100.0100, L500.2500, L503.6005 #### [facility] [address] [place], [address] GAP 15 Normal 5-15 [facility] Comment on above: Performed By: #### L 100.0100, L500.2500, L503.6005 #### [facility] [address] [place], [address] GFR/1.73 sq M.predicted among non-blacks MDRD (S/P/Bld) [Vol rate/Area] 44 mL/min/{1.73_m2} Low >60 [facility] Comment on above: Result Comment: mL/m in/1.73m2 CKD-EPI Creatinine Equation (2020) Performed By: #### L 100.0100, L500.2500, L503.6005 #### [facility] [address] [place], [address] Glucose [Mass/Vol] 113 mg/dL High 70-99 [facility] Comment on above: Performed By: #### L 100.0100, L500.2500, L503.6005 #### [facility] [address] [place], [address] Potassium [Moles/Vol] 3.3 mmol/L Normal 3.3-5.1 [facility] Comment on above: Performed By: #### L 100.0100, L500.2500, L503.6005 #### [facility] [address] [place], [address] Sodium [Moles/Vol] 136 mmol/L Normal 133-145 [facility] Comment on above: Performed By: #### L 100.0100, L500.2500, L503.6005 #### [facility] [address] [place], [address] Urea nitrogen [Mass/Vol] 29 mg/dL High 4-19 [facility] Comment on above: Performed By: #### L 100.0100, L500.2500, L503.6005 #### [facility] [address] [place], [address] Basophil percentageOrdered B y: Elvira Campbell on 02-10-2025 Basophils/100 WBC (Bld) 0.6 % 0-1 [facility] Bilirubin Test strip Ql (U)O rdered By: Elvira Campbell on 02-10-2025 Bilirubin Ql (U) Negative Negative [facility] Blood manual differential co mment interpretation (narrative result)Ordered By: Elvira Campbell on 02-10-2025 Manual differential comment Gregory (Bld) [Interp] SCANNED [facility] CBC W/Diff, Automatedon 08-0 PLT EST MOD INC Normal ADEQ [facility] Comment on above: Performed By: #### L 100.0100, L500.2500, L503.6005 #### [facility] [address] [place], [address] SMEAR COMMENT SCANNED Normal [facility] Comment on above: Performed By: #### L 100.0100, L500.2500, L503.6005 #### [facility] [address] [place], [address] Carbon dioxide, total [Moles /volume] in Central venous bloodOrdered By: Elvira Campbell on 02-10-2025 CO2 [Moles/Vol] 24.7 mmol/L 21.0-32.0 [facility] Chloride assayOrdered By: Nika Campbell on 02-10-2025 Chloride [Moles/Vol] 96 mmol/L Low 98-108 [facility] Emergency Department Summary on 02-10-2025 Emergency Department Summary [facility] Medical Records Department [address] [place] [address] Emergency Department Summary 02/10/25 MR#: [id number] Acct: [id number] Name: PATY RIOS Rep #: [id number] : 1940 84 From: [address] PCP: [...] 82.0 H Lymph % (Auto) 6.1 L [place] % (Auto) 10.4 H Eos % (Auto) [...] Clinical Impression(s) (more content not included)... Normal [facility] Eosinophil percentageOrdered By: Elvira Campbell on 02-10-2025 Eosinophils/100 WBC (Bld) 0.2 % 0-5 [facility] Erythrocyte distribution wid th ratioOrdered By: Elvira Campbell on 02-10-2025 Erythrocyte distribution width (RBC) [Ratio] 13.1 % 11.6-14.6 [facility] Erythrocyte distribution wid th standard deviationOrdered By: Elvira Campbell on 02-10-2025 Erythrocyte distribution width (RBC) [Ratio] 47.4 fl High 35.1-43.9 [facility] Glomerular filtration rate ( GFR) estimation/1.73 sq m using serum, plasma, or whole bOrdered By: Elvira Campbell on 02-10-2025 GFR/1.73 sq M.predicted among non-blacks MDRD (S/P/Bld) [Vol rate/Area] 44 mL/min/{1.73_m2} Low >60 [facility] Comment on above: mL/min/1.73m2 CKD-EP I Creatinine Equation (2020) Hematocrit Auto (Bld) [Volum e fraction]Ordered By: Elvira Campbell on 02-10-2025 Hematocrit (Bld) [Volume fraction] 37.9 % 37-47 [facility] Hemoglobin measurementOrdere d By: Elvira Campbell on 02-10-2025 Hemoglobin (Bld) [Mass/Vol] 12.3 g/dL 12.0-15.0 [facility] Immature granulocytes/100 WB C Auto (Bld)Ordered By: Elvira Campbell on 02-10-2025 Immature granulocytes/100 WBC (Bld) 0.700 % 0.0-0.9 [facility] Comment on above: IG% - Immature Granu locytes (promyelocytes, myelocytes and metamyelocytes) > 1% indicates that a LEFT SHIFT is Present. Ketones Test strip Ql (U)Ord ered By: Elvira Campbell on 02-10-2025 Ketones Ql (U) Negative Negative [facility] Lactic Acidon 02-10-2025 Lactate [Moles/Vol] 1.9 mmol/L Normal 0.0-2.0 [facility] Comment on above: Order Comment: Y Performed By: #### L 100.0100, L500.2500, L503.6005 #### [facility] [address] [place] [address], [id number] Lactic acid measurementOrder ed By: Elvira Campbell on 02-10-2025 Lactate [Moles/Vol] 1.9 mmol/L 0.0-2.0 [facility] MCV (mean corpuscular volume ) determinationOrdered By: Elvira Campbell on 02-10-2025 MCV (RBC) [Entitic vol] 97.7 fL 81-99 [facility] Mean corpuscular hemoglobin (MCH) determinationOrdered By: Elvira Campbell on 02-10-2025 MCH (RBC) [Entitic mass] 31.7 pg 27.0-32.0 [facility] Mean corpuscular hemoglobin concentration (MCHC) determinationOrdered By: Elvira Campbell on 02-10-2025 MCHC (RBC) [Mass/Vol] 32.5 g/dL 32-36 [facility] Mean platelet volume determi nationOrdered By: Elvira Campbell on 02-10-2025 Platelet mean volume (Bld) [Entitic vol] 8.0 fL 6.2-12.0 [facility] Microscopic analysis of urin e for red blood cells (RBC)Ordered By: Elvira Campbell on 02-10-2025 Microscopic analysis of urine for red blood cells (RBC) 0-5 SEEN /hpf 0-5 [facility] Monocyte percentageOrdered B y: Elvira Campbell on 02-10-2025 Monocytes/100 WBC (Bld) 10.4 % High 0-10 [facility] Mucus LM Ql (Urine sed)Order ed By: Elvira Campbell on 02-10-2025 Mucus Ql (Urine sed) 0 SEEN /hpf [facility] Neutrophil percentageOrdered By: Elvira Campbell on 02-10-2025 Neutrophils/100 WBC (Bld) 82.0 % High 47-70 [facility] Nitrite Test strip Ql (U)Ord ered By: Elvira Cambpell on 02-10-2025 Nitrite Ql (U) Negative Negative [facility] Nucleated red blood cell per centageOrdered By: Elvira Campbell on 02-10-2025 Nucleated RBC/100 WBC (Bld) [Ratio] 0 % 0-5 [facility] Platelet countOrdered By: Nika Campbell on 02-10-2025 Platelets (Bld) [#/Vol] 542 10*3/uL High 150-450 [facility] Platelet estimateOrdered By: Elvira Campbell on 02-10-2025 Platelets LM Ql (Bld) MOD INC ADEQ [facility] Potassium measurement (mass/ volume)Ordered By: Elvira Campbell on 02-10-2025 Potassium (Unsp spec) [Mass/Vol] 3.3 mmol/L 3.3-5.1 [facility] Protein Test strip Ql (U)Ord ered By: Elvira Campbell on 02-10-2025 Protein Ql (U) 30 mg/dl High Negative [facility] RBC Auto (Bld) [#/Vol]Ordere d By: Elvira Campbell on 02-10-2025 RBC (Bld) [#/Vol] 3.88 10*6/uL Low 4.2-5.4 [facility] Serum creatinine measurement (mass/volume)Ordered By: Elvira Campbell on 02-10-2025 Creatinine [Mass/Vol] 1.20 mg/dL 0.70-1.20 [facility] Serum glucose measurement (m ass/volume)Ordered By: Elvira Campbell on 02-10-2025 Glucose [Mass/Vol] 113 mg/dL High 70-99 [facility] Serum or plasma calcium jaki urement (mass/volume)Ordered By: Elvira Campbell on 02-10-2025 Calcium [Mass/Vol] 9.2 mg/dL 7.6-11.0 [facility] Serum or plasma urea nitroge n measurement (mass/volume)Ordered By: Elvira Campbell on 02-10-2025 Urea nitrogen [Mass/Vol] 29 mg/dL High 4-19 [facility] Sodium levelOrdered By: Elvira Campbell on 02-10-2025 Sodium [Moles/Vol] 136 mmol/L 133-145 [facility] Squamous epithelial cells de tection in urine sediment by light microscopyOrdered By: Elvira Campbell on 02-10-2025 Epithelial cells.squamous LM Ql (Urine sed) 0-5 SEEN /hpf 5-10 [facility] Transitional cells detection in urine sediment by light microscopyOrdered By: Elvira Campbell on 02-10-2025 Transitional cells LM Ql (Urine sed) 0-5 SEEN /hpf 0-5 [facility] Urinalysis, Completeon 02-10 EPI,TRANSITION 0-5 SEEN Normal 0-5 [facility] Comment on above: Order Comment: CLEAN CATCH Performed By: #### L 400.0001 #### [facility] [address] [place], [place], [id number] EPI,SQUAMOUS 0-5 SEEN Normal 5-10 [facility] Comment on above: Order Comment: CLEAN CATCH Performed By: #### L 400.0001 #### [facility] [address] [place], [address] RBC 0-5 SEEN Normal 0-5 [facility] Comment on above: Order Comment: CLEAN CATCH Performed By: #### L 400.0001 #### [facility] [address] [place], [address] WBC 0-5 SEEN Normal 0-5 [facility] Comment on above: Order Comment: CLEAN CATCH Performed By: #### L 400.0001 #### [facility] [address] [place], [address] BACTERIA 0 SEEN Normal None Seen [facility] Comment on above: Order Comment: CLEAN CATCH Performed By: #### L 400.0001 #### [facility] [address] [place], [address] Mucus Ql (Urine sed) 0 SEEN Normal [facility] Comment on above: Order Comment: CLEAN CATCH Performed By: #### L 400.0001 #### [facility] [address] [place], [address] Urine clarityOrdered By: Brook Campbell on 02-10-2025 Clarity (U) Clear Clear [facility] Urine color determinationOrd ered By: Elvira Campbell on 02-10-2025 Color (U) Yellow Yellow [facility] Urine glucose detectionOrder ed By: Elvira Campbell on 02-10-2025 Glucose Ql (U) Normal mg/dl Normal [facility] Urine leukocyte esterase det ection by dipstickOrdered By: Elvira Campbell on 02-10-2025 Leukocyte esterase Test strip Ql (U) Negative Negative [facility] Urine pHOrdered By: Elvira oseguera on 02-10-2025 pH (U) 6.0 [pH] 5.0 - 8.0 [facility] Urine sediment bacteria coun t by microscopy (number/high power field)Ordered By: Elvira Campbell on 02-10-2025 Bacteria LM.HPF (Urine sed) [#/Area] 0 /[HPF] None Seen [facility] Urine specific gravity measu rementOrdered By: Elvira Campbell on 02-10-2025 Specific gravity (U) [Rel density] 1.010 1.002-1.030 [facility] Urine urobilinogen measureme ntOrdered By: Elvirataylor Campbell on 02-10-2025 Urobilinogen Ql (U) Normal mg/dl Normal [facility] White blood cell (WBC) count Ordered By: Elvira Adrian on 02-10-2025 WBC (Bld) [#/Vol] 19.0 10*3/uL High 4.4-11.0 [facility] White blood cell countOrdere d By: Elvira Campbell on 02-10-2025 White blood cell count 0-5 SEEN /hpf 0-5 [facility] CBC W Auto Differential pane l (Bld)on 02-09-2025 Basophils (Bld) [#/Vol] 0.00 10*3/uL Normal <0.11 [facility] Comment on above: Order Comment: Speci men Type: BLOOD SPECIMEN Ordering Facility: [facility] Address: [address] [place] [address] Performed By: #### 5 7021-8 #### [facility] CLIA [id number] [address] [place] [address] [place] Basophils/100 WBC (Bld) 0.0 % Normal [facility] Comment on above: Order Comment: Speci men Type: BLOOD SPECIMEN Ordering Facility: [facility] Address: [address] [place] [address] Performed By: #### 5 7021-8 #### [facility] CLIA [id number] [address] [place] [address] [place] Differential cell count method Nom (Bld) Manual Normal [facility] Comment on above: Order Comment: Speci men Type: BLOOD SPECIMEN Ordering Facility: [facility] Address: [address] [place] [address] Performed By: #### 5 7021-8 #### [facility] CLIA [id number] [address] [place] [address] [place] Eosinophils (Bld) [#/Vol] 0.00 10*3/uL Normal <0.46 [facility] Comment on above: Order Comment: Speci men Type: BLOOD SPECIMEN Ordering Facility: [facility] Address: [address] [place] [address] Performed By: #### 5 7021-8 #### [facility] CLIA [id number] [address] [place] [address] [place] Eosinophils/100 WBC (Bld) 0.0 % Normal [facility] Comment on above: Order Comment: Speci men Type: BLOOD SPECIMEN Ordering Facility: [facility] Address: [address] [place] [address] Performed By: #### 5 7021-8 #### [facility] CLIA [id number] [address] [place] [address] [place] Erythrocyte distribution width (RBC) [Ratio] 13.3 % Normal 11.5-15.0 [facility] Comment on above: Order Comment: Speci men Type: BLOOD SPECIMEN Ordering Facility: [facility] Address: [address] [place] [address] Performed By: #### 5 7021-8 #### [facility] CLIA [id number] [address] [place] [address] [place] Hematocrit (Bld) [Volume fraction] 40.4 % Normal 36.0-46.0 [facility] Comment on above: Order Comment: Speci men Type: BLOOD SPECIMEN Ordering Facility: [facility] Address: [address] [place] [address] Performed By: #### 5 7021-8 #### [facility] CLIA [id number] [address] [place] [address] [place] Hemoglobin (Bld) [Mass/Vol] 12.9 g/dL Normal 11.5-15.5 [facility] Comment on above: Order Comment: Speci men Type: BLOOD SPECIMEN Ordering Facility: [facility] Address: [address] [place] [address] Performed By: #### 5 7021-8 #### [facility] CLIA [id number] [address] [place] [address] [place] Lymphocytes (Bld) [#/Vol] 1.01 10*3/uL Normal 1.00-4.00 [facility] Comment on above: Order Comment: Speci men Type: BLOOD SPECIMEN Ordering Facility: [facility] Address: [address] [place] [address] Performed By: #### 5 7021-8 #### [facility] CLIA [id number] [address] [place] [address] [place] Lymphocytes/100 WBC (Bld) 6.1 % Normal [facility] Comment on above: Order Comment: Speci men Type: BLOOD SPECIMEN Ordering Facility: [facility] Address: [address] [place] [address] Performed By: #### 5 7021-8 #### [facility] CLIA [id number] [address] [place] [address] [place] MCH (RBC) [Entitic mass] 31.5 pg Normal 26.0-34.0 [facility] Comment on above: Order Comment: Speci men Type: BLOOD SPECIMEN Ordering Facility: [facility] Address: [address] [place] [address] Performed By: #### 5 7021-8 #### [facility] CLIA [id number] [address] [place] [address] [place] MCHC (RBC) [Mass/Vol] 31.9 g/dL Normal 30.5-36.0 [facility] Comment on above: Order Comment: Speci men Type: BLOOD SPECIMEN Ordering Facility: [facility] Address: [address] [place] [address] Performed By: #### 5 7021-8 #### [facility] CLIA [id number] [address] [place] [address] [place] MCV (RBC) [Entitic vol] 98.5 fL Normal 80.0-100.0 [facility] Comment on above: Order Comment: Speci men Type: BLOOD SPECIMEN Ordering Facility: [facility] Address: [address] [place] [address] Performed By: #### 5 7021-8 #### [facility] CLIA [id number] [address] [place] [address] [place] Monocytes (Bld) [#/Vol] 1.44 10*3/uL High <0.87 [facility] Comment on above: Order Comment: Speci men Type: BLOOD SPECIMEN Ordering Facility: [facility] Address: [address] [place] [address] Performed By: #### 5 7021-8 #### [facility] CLIA [id number] [address] [place] [address] [place] Monocytes/100 WBC (Bld) 8.7 % Normal [facility] Comment on above: Order Comment: Speci men Type: BLOOD SPECIMEN Ordering Facility: [facility] Address: [address] [place] [address] Performed By: #### 5 7021-8 #### [facility] CLIA [id number] [address] [place] [address] [place] Neutrophils (Bld) [#/Vol] 14.12 10*3/uL High 1.45-7.50 [facility] Comment on above: Order Comment: Speci men Type: BLOOD SPECIMEN Ordering Facility: [facility] Address: [address] [place] [address] Performed By: #### 5 7021-8 #### [facility] CLIA [id number] [address] [place] [address] [place] Neutrophils/100 WBC (Bld) 85.2 % Normal [facility] Comment on above: Order Comment: Speci men Type: BLOOD SPECIMEN Ordering Facility: [facility] Address: [address] [place] [address] Performed By: #### 5 7021-8 #### [facility] CLIA [id number] [address] [place] [address] [place] Nucleated RBC (Bld) [#/Vol] 10*3/uL Normal <0.01 [facility] Comment on above: Order Comment: Speci men Type: BLOOD SPECIMEN Ordering Facility: [facility] Address: [address] [place] [address] Performed By: #### 5 7021-8 #### [facility] CLIA [id number] [address] [place] [address] [place] Nucleated RBC/100 WBC (Bld) [Ratio] 0.0 /100 WBC Normal [facility] Comment on above: Order Comment: Speci men Type: BLOOD SPECIMEN Ordering Facility: [facility] Address: [address] [place] [address] Performed By: #### 5 7021-8 #### [facility] CLIA [id number] [address] [place] [address] [place] Ovalocytes LM Ql (Bld) Few Normal [facility] Comment on above: Order Comment: Speci men Type: BLOOD SPECIMEN Ordering Facility: [facility] Address: [address] [place] [address] Performed By: #### 5 7021-8 #### [facility] CLIA [id number] [address] [place] [address] [place] Platelet mean volume (Bld) [Entitic vol] 8.5 fL Low 9.0-12.7 [facility] Comment on above: Order Comment: Speci men Type: BLOOD SPECIMEN Ordering Facility: [facility] Address: [address] [place] [address] Performed By: #### 5 7021-8 #### [facility] CLIA [id number] [address] [place] [address] [place] Platelets (Bld) [#/Vol] 572 10*3/uL High 150-400 [facility] Comment on above: Order Comment: Speci men Type: BLOOD SPECIMEN Ordering Facility: [facility] Address: [address] [place] [address] Performed By: #### 5 7021-8 #### [facility] CLIA [id number] [address] [place] [address] [place] Platelets Estimate (Bld) [#/Vol] Increased Normal [facility] Comment on above: Order Comment: Speci men Type: BLOOD SPECIMEN Ordering Facility: [facility] Address: [address] [place] [address] Performed By: #### 5 7021-8 #### [facility] CLIA [id number] [address] [place] [address] [place] RBC (Bld) [#/Vol] 4.10 10*6/uL Normal 3.90-5.20 [facility] Comment on above: Order Comment: Speci men Type: BLOOD SPECIMEN Ordering Facility: [facility] Address: [address] [place] [address] Performed By: #### 5 7021-8 #### [facility] CLIA [id number] [address] [place] [address] [place] RED CELL MORPH Reviewed: see result s of individual morphologies Normal [facility] Comment on above: Order Comment: Speci men Type: BLOOD SPECIMEN Ordering Facility: [facility] Address: [address] [place] [address] Performed By: #### 5 7021-8 #### [facility] CLIA [id number] [address] [place] [address] [place] WBC (Bld) [#/Vol] 16.57 10*3/uL High 3.70-11.00 [facility] Comment on above: Order Comment: Speci men Type: BLOOD SPECIMEN Ordering Facility: [facility] Address: [address] [place] [address] Performed By: #### 5 7021-8 #### [facility] CLIA [id number] [address] [place] [address] [place] CNOVon 02-09-2025 CNOV Office Visit (INTMWS ) PATY RIOS ([id number]) 1940 F Date Time Provider Department 02/09/25 [...] 73+ se (more content not included)... Normal [facility] Comprehensive metabolic 2000 panelon 02-09-2025 Albumin [Mass/Vol] 3.5 g/dL Low 3.9-4.9 [facility] Comment on above: Order Comment: Speci pro Type: BLOOD SPECIMENOrdering Facility: [facility] Address: [address] [place] [address] Performed By: #### 2 4323-8, 3016-3, 3051-0, 3027 ####[facility] [id number] [place] [address] [place] ALP [Catalytic activity/Vol] 95 U/L Normal 34-123 [facility] Comment on above: Order Comment: Speci men Type: BLOOD SPECIMENOrdering Facility: [facility] Address: [address] [place] [address] Performed By: #### 2 4323-8, 3016-3, 3051-0, 3024-7 ####[facility] [id number] [address] [address] [place] ALT [Catalytic activity/Vol] 9 U/L Normal 7-38 [facility] Comment on above: Order Comment: Speci men Type: BLOOD SPECIMENOrdering Facility: [facility] Address: [address] [place] [address] Performed By: #### 2 4323-8, 3016-3, 305-0, 7 ####[facility] [id number] [address] [address] [place] Anion gap [Moles/Vol] 17 mmol/L High 8-15 [facility] Comment on above: Order Comment: Speci men Type: BLOOD SPECIMENOrdering Facility: [facility] Address: [address] [place] [address] Performed By: #### 2 4323-8, 6-3, 3050-0, 7 ####[facility] [id number] [address] [address] [place] AST [Catalytic activity/Vol] 13 U/L Normal 13-35 [facility] Comment on above: Order Comment: Speci men Type: BLOOD SPECIMENOrdering Facility: [facility] Address: [address] [place], [place] [address] Performed By: #### 2 4323-8, 6-3, 305-0, 7 ####[facility] [id number] [address] [address] [place] Bilirubin [Mass/Vol] 0.4 mg/dL Normal 0.2-1.3 [facility] Comment on above: Order Comment: Speci men Type: BLOOD SPECIMENOrdering Facility: [facility] Address: [address] [place] [address] Performed By: #### 2 4323-8, 3016-3, 305-0, 302-7 ####[facility] [id number] [address] [address] [place] Calcium [Mass/Vol] 9.6 mg/dL Normal 8.5-10.2 [facility] Comment on above: Order Comment: Speci men Type: BLOOD SPECIMENOrdering Facility: [facility] Address: [address] [place], [place] [address] Performed By: #### 2 4323-8, 3016-3, 305-0, 7 ####[facility] [id number] [address] [address] [place] Chloride [Moles/Vol] 97 mmol/L Low 98-107 [facility] Comment on above: Order Comment: Speci men Type: BLOOD SPECIMENOrdering Facility: [facility] Address: [address] [place] [address] Performed By: #### 2 4323-8, 3016-3, 3050-0, 7 ####[facility] [id number] [address] [address] [place] CO2 [Moles/Vol] 23 mmol/L Normal 22-30 [facility] Comment on above: Order Comment: Speci men Type: BLOOD SPECIMENOrdering Facility: [facility] Address: [address] [place] [address] Performed By: #### 2 4323-8, 3016-3, 305-0, 7 ####[facility] LABIA [id number] [address] [address] [place] Creatinine [Mass/Vol] 1.85 mg/dL High 0.58-0.96 [facility] Comment on above: Order Comment: Speci men Type: BLOOD SPECIMENOrdering Facility: [facility] Address: [address] [place] [address] Performed By: #### 2 4323-8, 3016-3, 305-0, 3024-7 ####[facility] LABCLIA [id number] [place] [address] [place] eGFRcr SerPlBld CKD-EPI 2020 26 mL/min/1.73m??? Low >=60 [facility] Comment on above: Order Comment: Tomasz pro Type: BLOOD SPECIMENOrdering Facility: [facility] Address: [address] [place] [address] Result Comment: Briana mated Glomerular Filtration Rate [...] By: #### 2 4323-8, 3016-3, 305-0, 7 ####[facility] LABCLIA [id number] [place] [address] [place] Glucose [Mass/Vol] 110 mg/dL High 74-99 [facility] Comment on above: Order Comment: Tomasz mast Type: BLOOD SPECIMENOrdering Facility: [facility] Address: [address] [place] [address] Result Comment: The [place] Diabetes Association (ADA) provides guidance for cutoff [...] Standards of Medical Care in Diabetes 2016, [place] [employer]. Diabetes Care. 2016.39(Suppl 1). Performed By: #### 2 4323-8, 3016-3, 305-0, 3023-7 ####[facility] LABIA [id number] [address] [address] [place] Potassium [Moles/Vol] 3.6 mmol/L Low 3.7-5.1 [facility] Comment on above: Order Comment: Speci men Type: BLOOD SPECIMENOrdering Facility: [facility] Address: [address] [place] [address] Performed By: #### 2 4323-8, 3016-3, 305-0, 7 ####[facility] LABIA [id number] [address] [address] [place] Protein [Mass/Vol] 7.5 g/dL Normal 6.3-8.0 [facility] Comment on above: Order Comment: Speci men Type: BLOOD SPECIMENOrdering Facility: [facility] Address: [address] [place] [address] Performed By: #### 2 4323-8, 6-3, 305-0, 7 ####[facility] [id number] [address] [address] [place] Sodium [Moles/Vol] 137 mmol/L Normal 136-144 [facility] Comment on above: Order Comment: Speci men Type: BLOOD SPECIMENOrdering Facility: [facility] Address: [address] [place] [address] Performed By: #### 2 4323-8, 3016-3, 305-0, 7 ####[facility] LABIA [id number] [address] [address] [place] Urea nitrogen [Mass/Vol] 36 mg/dL High 7-21 [facility] Comment on above: Order Comment: Speci men Type: BLOOD SPECIMENOrdering Facility: [facility] Address: [address] [place], [place] [address] Performed By: #### 2 4323-8, 6-3, 305-0, 3023-7 ####[facility] LABCLIA [id number] [place] [id number] [place] [facility] [place] T3Free SerPl-mCncon 02-10-20 25 Free T3 [Mass/Vol] 1.8 pg/mL Low 2.3-4.1 [facility] Comment on above: Order Comment: Speci men Type: BLOOD SPECIMENOrdering Facility: [facility] Address: [address] [place] [address] Performed By: #### 2 4323-8, 3016-3, 3051-0, 3024-7 ####[facility] LABIA [id number] [place] [address] [place] T4 Free SerPl-mCncon 025 Free T4 [Mass/Vol] 2.0 ng/dL High 0.9-1.7 [facility] Comment on above: Order Comment: Speci men Type: BLOOD SPECIMENOrdering Facility: [facility] Address: [address] [place] [address] Performed By: #### 2 4323-8, 3016-3, 3051-0, 3024-7 ####[facility] LABIA [id number] [address] [place] TSH SerPl-aCncon 02-09-2025 TSH Qn 0.176 m[IU]/L Low 0.270-4.200 [facility] Comment on above: Order Comment: Speci men Type: BLOOD SPECIMENOrdering Facility: [facility] Address: [address] [place] [address] Performed By: #### 2 4323-8, 3016-3, 305-0, 3024-7 ####[facility] LABIA [id number] [place] [id number] [place] CNOVon 09-14-2024 CNOV Office Visit (INTMWS ) PATY RIOS ([id number]) 1940 F Date Time Provider Department 09/14/24 [...] Lab/Diagnostic S (more content not included)... Normal [facility] CBC panel Auto (Bld)on 09-08 Erythrocyte distribution width (RBC) [Ratio] 11.7 % Normal 11.5-15.0 [facility] Comment on above: Order Comment: Tomasz mast Type: BLOOD SPECIMEN [facility] Facility: [facility] Address: [address] [place] [address] Performed By: #### 5 7021-8 #### [facility] CLIA [id number] [address] [place] [address] [place] Hematocrit (Bld) [Volume fraction] 42.9 % Normal 36.0-46.0 [facility] Comment on above: Order Comment: Tomasz mast Type: BLOOD SPECIMEN [facility]ing Facility: [facility] Address: [address] [place] [address] Performed By: #### 5 7021-8 #### [facility] CLIA [id number] [address] [place] [address] [place] Hemoglobin (Bld) [Mass/Vol] 14.0 g/dL Normal 11.5-15.5 [facility] Comment on above: Order Comment: Zachariahi pro Type: BLOOD SPECIMEN [facility]ing Facility: [facility] Address: [address] [place] [address] Performed By: #### 5 7021-8 #### [facility] CLIA [id number] [address] [place] [address] [place] MCH (RBC) [Entitic mass] 32.2 pg Normal 26.0-34.0 [facility] Comment on above: Order Comment: Zachariahi pro Type: BLOOD SPECIMEN [facility]ing Facility: [facility] Address: [address] [place] [address] Performed By: #### 5 7021-8 #### [facility] CLIA [id number] [address] [place] [address] [place] MCHC (RBC) [Mass/Vol] 32.6 g/dL Normal 30.5-36.0 [facility] Comment on above: Order Comment: Speci men Type: BLOOD SPECIMEN [facility]ing Facility: [facility] Address: [address] [place] [address] Performed By: #### 5 7021-8 #### [facility] CLIA [id number] [address] [place] [address] [place] MCV (RBC) [Entitic vol] 98.6 fL Normal 80.0-100.0 [facility] Comment on above: Order Comment: Speci men Type: BLOOD SPECIMEN [facility]ing Facility: [facility] Address: [address] [place] [address] Performed By: #### 5 7021-8 #### [facility] CLIA [id number] [address] [place] [address] [place] Nucleated RBC (Bld) [#/Vol] 10*3/uL Normal <0.01 [facility] Comment on above: Order Comment: Speci men Type: BLOOD SPECIMEN [facility] Facility: [facility] Address: [address] [place] [address] Performed By: #### 5 7021-8 #### [facility] CLIA [id number] [address] [place] [address] [place] Platelet mean volume (Bld) [Entitic vol] 8.7 fL Low 9.0-12.7 [facility] Comment on above: Order Comment: Speci men Type: BLOOD SPECIMEN [facility]ing Facility: [facility] Address: [address] [place] [address] Performed By: #### 5 7021-8 #### [facility] CLIA [id number] [address] [place] [address] [place] Platelets (Bld) [#/Vol] 272 10*3/uL Normal 150-400 [facility] Comment on above: Order Comment: Speci men Type: BLOOD SPECIMEN [facility]ing Facility: [facility] Address: [address] [place] [address] Performed By: #### 5 7021-8 #### [facility] CLIA [id number] [address] [place] [address] [place] RBC (Bld) [#/Vol] 4.35 10*6/uL Normal 3.90-5.20 [facility] Comment on above: Order Comment: Speci men Type: BLOOD SPECIMEN [facility] Facility: [facility] Address: [address] [place] [address] Performed By: #### 5 7021-8 #### [facility] CLIA [id number] [address] [place] [address] [place] WBC (Bld) [#/Vol] 4.49 10*3/uL Normal 3.70-11.00 [facility] Comment on above: Order Comment: Speci men Type: BLOOD SPECIMEN [facility]ing Facility: [facility] Address: [address] [place] [address] Performed By: #### 5 7021-8 #### [facility] CLIA [id number] [address] [place] [address] [place] Comprehensive metabolic 2000 panelon 09-08-2024 Albumin [Mass/Vol] 4.1 g/dL Normal 3.9-4.9 [facility] Comment on above: Order Comment: Speci men Type: BLOOD SPECIMEN [facility]ing Facility: [facility] Address: [address] [place] [address] Performed By: #### 5 7021-8 #### [facility] CLIA [id number] [address] [place] [address] [place] ALP [Catalytic activity/Vol] 59 U/L Normal 34-123 [facility] Comment on above: Order Comment: Speci men Type: BLOOD SPECIMEN [facility]ing Facility: [facility] Address: [address] [place] [address] Performed By: #### 5 7021-8 #### [facility] CLIA [id number] [address] [place] [address] [place] ALT [Catalytic activity/Vol] 6 U/L Low 7-38 [facility] Comment on above: Order Comment: Speci men Type: BLOOD SPECIMEN [facility]ing Facility: [facility] Address: [address] [place] [address] Performed By: #### 5 7021-8 #### [facility] CLIA [id number] [address] [place] [address] [place] Anion gap [Moles/Vol] 13 mmol/L Normal 8-15 [facility] Comment on above: Order Comment: Speci men Type: BLOOD SPECIMEN [facility]ing Facility: [facility] Address: [address] [place] [address] Performed By: #### 5 7021-8 #### [facility] CLIA [id number] [address] [place] [address] [place] AST [Catalytic activity/Vol] 15 U/L Normal 13-35 [facility] Comment on above: Order Comment: Speci men Type: BLOOD SPECIMEN [facility]ing Facility: [facility] Address: [address] [place] [address] Performed By: #### 5 7021-8 #### [facility] CLIA [id number] [address] [place] [address] [place] Bilirubin [Mass/Vol] 0.6 mg/dL Normal 0.2-1.3 [facility] Comment on above: Order Comment: Speci men Type: BLOOD SPECIMEN [facility]ing Facility: [facility] Address: [address] [place] [address] Performed By: #### 5 7021-8 #### [facility] CLIA [id number] [address] [place] [address] [place] Calcium [Mass/Vol] 9.3 mg/dL Normal 8.5-10.2 [facility] Comment on above: Order Comment: Speci men Type: BLOOD SPECIMEN [facility]ing Facility: [facility] Address: [address] [place] [address] Performed By: #### 5 7021-8 #### [facility] CLIA [id number] [address] [place], [place] [address] [place] Chloride [Moles/Vol] 101 mmol/L Normal 98-107 [facility] Comment on above: Order Comment: Speci men Type: BLOOD SPECIMEN [facility]ing Facility: [facility] Address: [address] [place] [address] Performed By: #### 5 7021-8 #### [facility] CLIA [id number] [address] [place] [address] [place] CO2 [Moles/Vol] 26 mmol/L Normal 22-30 [facility] Comment on above: Order Comment: Speci men Type: BLOOD SPECIMEN [facility]ing Facility: [facility] Address: [address] [place] [address] Performed By: #### 5 7021-8 #### [facility] CLIA [id number] [address] [place] [address] [place] Creatinine [Mass/Vol] 0.63 mg/dL Normal 0.58-0.96 [facility] Comment on above: Order Comment: Speci men Type: BLOOD SPECIMEN [facility]ing Facility: [facility] Address: [address] [place] [address] Performed By: #### 5 7021-8 #### [facility] CLIA [id number] [address] [place], [place] [address] [place] Creatinine and Glomerular filtration rate.predicted panel (S/P/Bld) 87 mL/min/1.73m??? Normal >=60 [facility] Comment on above: Order Comment: Tomasz mast Type: BLOOD SPECIMEN [facility]ing Facility: [facility] Address: [address] [place] [address] Result Comment: Briana mated Glomerular Filtration Rate [...] GFR. Performed By: #### 5 7021-8 #### [facility] CLIA [id number] [address] [place] [address] [place] Glucose [Mass/Vol] 96 mg/dL Normal 74-99 [facility] Comment on above: Order Comment: Tomasz mast Type: BLOOD SPECIMEN [facility]ing Facility: [facility] Address: [address] [place] [address] Result Comment: The [place] Diabetes Association (ADA) provides guidance for cutoff [...] Standards of Medical Care in Diabetes 2016, [place] [employer]. Diabetes Care. 2016.39(Suppl 1). Performed By: #### 5 7021-8 #### [facility] CLIA [id number] [address] [place] [address] [place] Potassium [Moles/Vol] 3.5 mmol/L Low 3.7-5.1 [facility] Comment on above: Order Comment: Tomasz mast Type: BLOOD SPECIMEN [facility]ing Facility: [facility] Address: [address] [place] [address] Performed By: #### 5 7021-8 #### [facility] CLIA [id number] [address] [place] [address] [place] Protein [Mass/Vol] 6.8 g/dL Normal 6.3-8.0 [facility] Comment on above: Order Comment: Speci men Type: BLOOD SPECIMEN Ordering Facility: [facility] Address: [address] [place] [address] Performed By: #### 5 7021-8 #### [facility] CLIA [id number] [address] [place] [address] [place] Sodium [Moles/Vol] 140 mmol/L Normal 136-144 [facility] Comment on above: Order Comment: Speci men Type: BLOOD SPECIMEN Ordering Facility: [facility] Address: [address] [place] [address] Performed By: #### 5 7021-8 #### [facility] CLIA [id number] [address] [place] [address] [place] Urea nitrogen [Mass/Vol] 13 mg/dL Normal 7-21 [facility] Comment on above: Order Comment: Speci men Type: BLOOD SPECIMEN Ordering Facility: [facility] Address: [address] [place] [address] Performed By: #### 5 7021-8 #### [facility] CLIA [id number] [address] [place], [place] [address] [place] Lipid 1996 panelon 5 Cholesterol [Mass/Vol] 141 mg/dL Normal <200 [facility] Comment on above: Order Comment: Speci men Type: BLOOD SPECIMEN Ordering Facility: [facility] Address: [address] [place] [address] Result Comment: <200 mg/dL, Desirable 200-239 mg/dL, Borderline high >239 mg/dL, High Performed By: #### 5 7021-8 #### [facility] CLIA [id number] [facility] [place] [address] [place] Cholesterol in HDL [Mass/Vol] 37 mg/dL Low >39 [facility] Comment on above: Order Comment: Tomasz mast Type: BLOOD SPECIMEN Ordering Facility: [facility] Address: [address] [place] [address] Result Comment: 40-5 9 mg/dL, Acceptable >59 mg/dL, High: Negative risk factor for coronary heart disease <40 mg/dL, Low: Positive risk factor for coronary heart disease Performed By: #### 5 7021-8 #### [facility] CLIA [id number] [address] [place] [address] [place] Cholesterol in LDL [Mass/Vol] 68 mg/dL Normal <100 [facility] Comment on above: Order Comment: Tomasz mast Type: BLOOD SPECIMEN Ordering Facility: [facility] Address: [address] [place] [address] Result Comment: <100 mg/dL, Optimal 100-129 mg/dL, Near optimal/above optimal 130-159 mg/dL, Borderline high 160-189 mg/dL, High >189 mg/dL, Very high Secondary prevention optimal LDL Cholesterol levels are recommended to be < 70 mg/dL Performed By: #### 5 7021-8 #### [facility] CLIA [id number] [address] [place] [address] OF [facility] Cholesterol in LDL/Cholesterol in HDL [Mass ratio] 1.84 {ratio} Normal <2.54 [facility] Comment on above: Order Comment: Tomasz pro Type: BLOOD SPECIMEN Ordering Facility: [facility] Address: [address] [place] [address] Result Comment: Quentin cho: 1. National Cholesterol Education Program ATP III Guideline At-A-Glance Quick Desk Reference: National Heart, Lung, and Blood Darden. National Institutes of Health. 2001: NIH Publication No. 01-3305. 2. An International Atherosclerosis Society position paper: global recommendations for the management of dyslipidemia: executive summary, Atherosclerosis. 2014: 232(2):410-413. Performed By: #### 5 7021-8 #### [facility] CLIA [id number] [address] [place] [address] [place] Cholesterol in VLDL [Mass/Vol] 36 mg/dL High <30 [facility] Comment on above: Order Comment: Speci men Type: BLOOD SPECIMEN Ordering Facility: [facility] Address: [address] [place] [address] Performed By: #### 5 7021-8 #### [facility] CLIA [id number] [address] [place], [place] [address] [place] Cholesterol non HDL [Mass/Vol] 104 mg/dL Normal <130 [facility] Comment on above: Order Comment: Speci men Type: BLOOD SPECIMEN Ordering Facility: [facility] Address: [address] [place] [address] Result Comment: <130 mg/dL, Optimal 130-159 mg/dL, Near optimal/above optimal 160-189 mg/dL, Borderline high 190-219 mg/dL, High >219 mg/dL, Very high Secondary prevention optimal non HDL Cholesterol levels are recommended to be <100 mg/dL Performed By: #### 5 7021-8 #### [facility] CLIA [id number] [address] [place], [place] [address] [place] Cholesterol.total/Choles terol in HDL [Mass ratio] 3.81 {ratio} Normal <5.10 [facility] Comment on above: Order Comment: Speci men Type: BLOOD SPECIMEN Ordering Facility: [facility] Address: [address] [place] [address] Performed By: #### 5 7021-8 #### [facility] CLIA [id number] [address] [place], [place] [address] [place] FASTING TIME 14 hrs Normal [facility] Comment on above: Order Comment: Speci men Type: BLOOD SPECIMEN Ordering Facility: [facility] Address: [address] [place] [address] Performed By: #### 5 7021-8 #### [facility] CLIA [id number] [address] [place] [address] [place] Triglyceride [Mass/Vol] 182 mg/dL High <150 [facility] Comment on above: Order Comment: Speci men Type: BLOOD SPECIMEN Ordering Facility: [facility] Address: [address] [place] [address] Result Comment: <150 mg/dL, Normal 150-199 mg/dL, Borderline high 200-499 mg/dL, High >499 mg/dL, Very high Performed By: #### 5 7021-8 #### [facility] IA [id number] [address] [place] [address] [place] TSH SerPl-aCncon 09-08-2024 TSH Qn 0.154 m[IU]/L Low 0.270-4.200 [facility] Comment on above: Order Comment: Speci men Type: BLOOD SPECIMEN Ordering Facility: [facility] Address: [address] [place] [address] Performed By: #### 5 7021-8 #### [facility] IA [id number] [address] [place] [address] [place] CN[facility]20[facility] PATY RIOS ([id number]) 1940 F Date Time Provider Department 04/28/24 [...] AGE 6MO-64YR, TRIVALENT (AFLURIA, FLULAVAL, FLUVIRIN, FLUZONE) [[id number]] Order #: [id number] Prescriptions as of 04/29/2024 - losartan (COZAAR) [...] Status:Closed by KARRIE RUSSO on 04/29/24 Normal [facility] Vital Signs Date Time Vital Sign Value Performing Clinician Facility 03-21-2025 08:58-0400 Body mass index (BMI) [Ratio] 18.75 kg/m2 Russ Barone MD Work Phone: [facility] 03-21-2025 08:58-0400 Body weight 42.19 kg Russ Barone MD Work Phone: [facility] 03-21-2025 08:58-0400 Diastolic blood pressure 72 mm[Hg] Russ Barone MD Work Phone: [facility] 03-21-2025 08:58-0400 Heart rate 92 /min Russ Barone MD Work Phone: [facility] 03-21-2025 08:58-0400 Respiratory rate 16 /min Russ Barone MD Work Phone: [facility] 03-21-2025 08:58-0400 Systolic blood pressure 117 mm[Hg] Russ Barone MD Work Phone: [facility] 02-16-2025 12:34-0400 Body mass index (BMI) [Ratio] 19.35 kg/m2 Martha Older [employer].CERTIFIED MEDICAL AIDE Work Phone: [facility] 02-16-2025 12:34-0400 Body weight 43.55 kg Martha Older [employer].CERTIFIED MEDICAL AIDE Work Phone: [facility] 02-16-2025 12:34-0400 Diastolic blood pressure 60 mm[Hg] Martha Older [employer].CERTIFIED MEDICAL AIDE Work Phone: [facility] 02-16-2025 12:34-0400 Heart rate 73 /min Martha Older [employer].CERTIFIED MEDICAL AIDE Work Phone: [facility] 02-16-2025 12:34-0400 Respiratory rate 16 /min Martha Older [employer].CERTIFIED MEDICAL AIDE Work Phone: [facility] 02-16-2025 12:34-0400 SaO2% (BldA) [Mass fraction] 97 % Martha Older [employer].CERTIFIED MEDICAL AIDE Work Phone: [facility] 02-16-2025 12:34-0400 Systolic blood pressure 104 mm[Hg] Martha Older [employer].CERTIFIED MEDICAL AIDE Work Phone: [facility] 02-14-2025 14:56-0400 Body temperature 96.3 [degF] Dr. Russ Barone MD Work Phone: 2(250)841-308369 [place] [address] 02-14-2025 14:56-0400 Diastolic blood pressure 48 mm[Hg] Dr. Russ Barone MD Work Phone: 5(444)360-993969 [place] [address] 02-14-2025 14:56-0400 Heart rate 74 /min Dr. Russ Barone MD Work Phone: 2(245)082-461669 [place] [address] 02-14-2025 14:56-0400 Respiratory rate 17 /min Dr. Russ Barone MD Work Phone: 1(021)692-285269 [place] [address] 02-14-2025 14:56-0400 SaO2% (BldA) [Mass fraction] 98 % Dr. Russ Barone MD Work Phone: 5(695)795-500869 [place] [address] 02-14-2025 14:56-0400 Systolic blood pressure 135 mm[Hg] Dr. Russ Barone MD Work Phone: 7(073)031-349519 [place] [address] 02-14-2025 10:02-0400 Body height 152.[address] Russ Barone MD Work Phone: 4(797)064-518069 [place] [address] 02-14-2025 10:02-0400 Body mass index (BMI) [Ratio] 18.4 kg/m2 Dr. Russ Barone MD Work Phone: 9(549)918-526469 [place] [address] 02-14-2025 10:02-0400 Body weight 42.[address] Russ Barone MD Work Phone: 0(953)072-405069 [place] [address] 02-10-2025 18:37-0400 Diastolic blood pressure 59 mm[Hg] Dr. Russ Barone MD Work Phone: 8(734)277-569969 [place] [address] 02-10-2025 18:37-0400 Heart rate 80 /min Dr. Russ Barone MD Work Phone: 1(282)190-475369 [place] [address] 02-10-2025 18:37-0400 Respiratory rate 18 /min Dr. Russ Barone MD Work Phone: 6(798)[phone] [place] [address] 02-10-2025 18:37-0400 SaO2% (BldA) [Mass fraction] 95 % Dr. Russ Barone MD Work Phone: 8(490)[phone] [place] [address] 02-10-2025 18:37-0400 Systolic blood pressure 140 mm[Hg] Dr. Russ Barone MD Work Phone: 3(063)052-913169 [place] [address] 02-10-2025 16:38-0400 Body height 152.[address] Russ Barone MD Work Phone: 2(949)459-149569 [place] [address] 02-10-2025 16:38-0400 Body mass index (BMI) [Ratio] 19.1 kg/m2 Dr. Russ Barone MD Work Phone: 7(874)797-184069 [place] [address] 02-10-2025 16:38-0400 Body temperature 97.4 [degF] Dr. Russ Barone MD Work Phone: 6(430)099-594469 [place] [address] 02-10-2025 16:38-0400 Body weight 44.[address] Russ Barone MD Work Phone: 0(790)[phone] [place] [address] 09-14-2024 08:00-0400 Body height 150 cm Russ Barone MD Work Phone: 7(007)939-320122 [place] [address] 09-14-2024 08:00-0400 Body mass index (BMI) [Ratio] 21.57 kg/m2 Russ Barone MD Work Phone: 5(728)835-237822 [place] [address] 09-14-2024 08:00-0400 Body weight 48.53 kg Russ Barone MD Work Phone: 4(778)[phone] [place] [address] 09-14-2024 08:00-0400 Diastolic blood pressure 68 mm[Hg] Russ Barone MD Work Phone: [facility] 09-14-2024 08:00-0400 Heart rate 73 /min Russ Barone MD Work Phone: [facility] 09-14-2024 08:00-0400 SaO2% (BldA) [Mass fraction] 97 % Russ Barone MD Work Phone: [facility] 09-14-2024 08:00-0400 Systolic blood pressure 118 mm[Hg] Russ Barone MD Work Phone: [facility] 03-18-2024 07:59-0400 Body mass index (BMI) [Ratio] 20.84 kg/m2 Martha Older [employer].CERTIFIED MEDICAL AIDE Work Phone: [facility] 03-18-2024 07:59-0400 Body weight 48.4 kg Martha Older [employer].CERTIFIED MEDICAL AIDE Work Phone: [facility] 03-18-2024 07:59-0400 Diastolic blood pressure 68 mm[Hg] Martha Older [employer].CERTIFIED MEDICAL AIDE Work Phone: [facility] 03-18-2024 07:59-0400 Heart rate 76 /min Martha Older [employer].CERTIFIED MEDICAL AIDE Work Phone: [facility] 03-18-2024 07:59-0400 Respiratory rate 16 /min Martha Older [employer].CERTIFIED MEDICAL AIDE Work Phone: [facility] 03-18-2024 07:59-0400 SaO2% (BldA) [Mass fraction] 94 % Martha Older [employer].CERTIFIED MEDICAL AIDE Work Phone: [facility] 03-18-2024 07:59-0400 Systolic blood pressure 122 mm[Hg] Martha Older [employer].CERTIFIED MEDICAL AIDE Work Phone: [facility] 03-05-2024 07:44-0400 Body mass index (BMI) [Ratio] 21.79 kg/m2 Stephanie García [employer].CERTIFIED MEDICAL AIDE Work Phone: [facility] 03-05-2024 07:44-0400 Body temperature 99.19 [degF] Stephanie García APRN.CERTIFIED MEDICAL AIDE Work Phone: [facility] 03-05-2024 07:44-0400 Body weight 50.6 kg Stephanie García APRN.CERTIFIED MEDICAL AIDE Work Phone: [facility] 03-05-2024 07:44-0400 Diastolic blood pressure 74 mm[Hg] Stephanie García APRN.CERTIFIED MEDICAL AIDE Work Phone: [facility] 03-05-2024 07:44-0400 Heart rate 66 /min Stephanie García APRN.CERTIFIED MEDICAL AIDE Work Phone: [facility] 03-05-2024 07:44-0400 Respiratory rate 18 /min Stephanie García APRN.CERTIFIED MEDICAL AIDE Work Phone: [facility] 03-05-2024 07:44-0400 SaO2% (BldA) [Mass fraction] 96 % Stephanie García APRN.CERTIFIED MEDICAL AIDE Work Phone: [facility] 03-05-2024 07:44-0400 Systolic blood pressure 170 mm[Hg] Stephanie García APRN.CERTIFIED MEDICAL AIDE Work Phone: [facility] 03-03-2024 14:27-0400 Body mass index (BMI) [Ratio] 21.92 kg/m2 Sara Flores APRN.CERTIFIED MEDICAL AIDE Work Phone: [facility] 03-03-2024 14:27-0400 Body temperature 98.91 [degF] Sara Flores APRN.CERTIFIED MEDICAL AIDE Work Phone: [facility] 03-03-2024 14:27-0400 Body weight 50.9 kg Sara Flores APRN.CERTIFIED MEDICAL AIDE Work Phone: [facility] 03-03-2024 14:27-0400 Diastolic blood pressure 76 mm[Hg] Sara Flores APRN.CERTIFIED MEDICAL AIDE Work Phone: [facility] 03-03-2024 14:27-0400 Heart rate 77 /min Sara Flores APRN.CERTIFIED MEDICAL AIDE Work Phone: [facility] 03-03-2024 14:27-0400 Respiratory rate 21 /min Sara Flores [employer].CERTIFIED MEDICAL AIDE Work Phone: [facility] 03-03-2024 14:27-0400 SaO2% (BldA) [Mass fraction] 97 % Sara Flores [employer].CERTIFIED MEDICAL AIDE Work Phone: [facility] 03-03-2024 14:27-0400 Systolic blood pressure 160 mm[Hg] Sara Flores [employer].CERTIFIED MEDICAL AIDE Work Phone: [facility] 09-17-2023 08:01-0400 Body weight 49.9 kg Martha Older [employer].CERTIFIED MEDICAL AIDE Work Phone: [facility] 09-17-2023 08:01-0400 Diastolic blood pressure 76 mm[Hg] Martha Older [employer].CERTIFIED MEDICAL AIDE Work Phone: [facility] 09-17-2023 08:01-0400 Heart rate 64 /min Martha Older [employer].CERTIFIED MEDICAL AIDE Work Phone: [facility] 09-17-2023 08:01-0400 Respiratory rate 16 /min Martha Older [employer].CERTIFIED MEDICAL AIDE Work Phone: [facility] 09-17-2023 08:01-0400 SaO2% (BldA) [Mass fraction] 97 % Martha Older [employer].CERTIFIED MEDICAL AIDE Work Phone: [facility] 09-17-2023 08:01-0400 Systolic blood pressure 130 mm[Hg] Martha Older [employer].CERTIFIED MEDICAL AIDE Work Phone: [facility] 03-19-2023 08:01-0400 Body weight 50.35 kg Martha Older [employer].CERTIFIED MEDICAL AIDE Work Phone: [facility] 03-19-2023 08:01-0400 Diastolic blood pressure 76 mm[Hg] Martha Older [employer].CERTIFIED MEDICAL AIDE Work Phone: [facility] 03-19-2023 08:01-0400 Heart rate 68 /min Martha Older [employer].CERTIFIED MEDICAL AIDE Work Phone: [facility] 03-19-2023 08:01-0400 Respiratory rate 16 /min Martha Older [employer].CERTIFIED MEDICAL AIDE Work Phone: [facility] 03-19-2023 08:01-0400 SaO2% (BldA) [Mass fraction] 97 % Martha Older [employer].CERTIFIED MEDICAL AIDE Work Phone: [facility] 03-19-2023 08:01-0400 Systolic blood pressure 124 mm[Hg] Martha Older [employer].CERTIFIED MEDICAL AIDE Work Phone: [facility] 09-16-2022 08:31-0400 Body height 152.4 cm Russ Barone MD Work Phone: [facility] 09-16-2022 08:31-0400 Body temperature 97.3 [degF] Russ Barone MD Work Phone: [facility] 09-16-2022 08:31-0400 Body weight 50.8 kg Russ Barone MD Work Phone: [facility] 09-16-2022 08:31-0400 Diastolic blood pressure 60 mm[Hg] Russ Barone MD Work Phone: [facility] 09-16-2022 08:31-0400 Heart rate 64 /min Russ Barone MD Work Phone: [facility] 09-16-2022 08:31-0400 Respiratory rate 12 /min Russ Barone MD Work Phone: [facility] 09-16-2022 08:31-0400 SaO2% (BldA) [Mass fraction] 97 % Russ Barone MD Work Phone: [facility] 09-16-2022 08:31-0400 Systolic blood pressure 120 mm[Hg] Russ Barone MD Work Phone: [facility] 03-18-2022 08:40-0400 Body weight 49.9 kg Russ Barone MD Work Phone: [facility] 03-18-2022 08:40-0400 Diastolic blood pressure 62 mm[Hg] Russ Barone MD Work Phone: [facility] 03-18-2022 08:40-0400 Heart rate 60 /min Russ Barone MD Work Phone: [facility] 03-18-2022 08:40-0400 Respiratory rate 16 /min Russ Barone MD Work Phone: [facility] 03-18-2022 08:40-0400 Systolic blood pressure 120 mm[Hg] Russ Barone MD Work Phone: [facility] Encounters Encounter Date Encounter Type Care Provider Facility Start: 03-21-2025 End: 03-21-2025 Subsequent hospital visit by physician [facility] [place] Work Phone: Radiology Comment on above: Neck pain [M54.2] Start: 03-21-2025 End: 03-21-2025 ambulatory [facility] Facility:[facility] Start: 03-21-2025 End: 03-21-2025 Office outpatient visit 25 minutes Russ Barone MD Work Phone: [facility] [place] Comment on above: Colitis due to Esche richia coli (Primary Dx); Excessive body weight loss; Need for vaccination; Infection in abdomen (HCC); Other elevated white blood cell (WBC) count; Neck pain; Dilated intrahepatic bile duct; Vitamin B12 deficiency; Vitamin D deficiency; Iron deficiency Start: 03-21-2025 End: 03-21-2025 [facility] Facility:[facility] Start: 03-19-2025 End: 03-19-2025 [facility] Facility:[facility] Start: 03-02-2025 End: 03-02-2025 ambulatory Martha Funk [employer].CERTIFIED MEDICAL AIDE Work Phone: Internal Medicine [place] Comment on above: [place]AN Start: 02-25-2025 End: 03-03-2025 Refill Martha Funk [employer].CERTIFIED MEDICAL AIDE Work Phone: [facility] Comment on above: Refill Request Start: 02-17-2025 End: 02-17-2025 Follow-up encounter Martha Funk APRN.CERTIFIED MEDICAL AIDE Work Phone: Family Medicine [place] Start: 02-16-2025 End: 02-16-2025 [facility] Start: 02-16-2025 End: 02-16-2025 Office outpatient visit 25 minutes Martha Older [employer].CERTIFIED MEDICAL AIDE Work Phone: Internal Medicine [place] Comment on above: Weakness (Primary Dx ); Leukocytosis, unspecified type; Hematuria, unspecified type; Proteinuria, unspecified type; Thrombocytosis; Decreased appetite; Other fatigue; Medication management; Hypothyroidism, unspecified type; Acute colitis; Dehydration Start: 02-16-2025 End: 02-16-2025 [facility] Facility:[facility] Start: 02-14-2025 End: 02-14-2025 Emergency department patient visit Dr. Russ Barone MD Work Phone: -Emergency Department Work Phone: Start: 02-10-2025 End: 02-10-2025 Emergency department patient visit Dr. Russ Barone MD Work Phone: -Emergency Department Work Phone: Start: 02-09-2025 End: 02-09-2025 [facility] Facility:[facility] Start: 12-08-2024 End: 12-09-2024 Refill Russ Barone MD Work Phone: Internal Medicine [place] Comment on above: Refill Request Start: 10-18-2024 End: 10-20-2024 Refill Martha Older [employer].CERTIFIED MEDICAL AIDE Work Phone: [facility] [place] Comment on above: Refill Request Start: 09-24-2024 End: 09-24-2024 Refill Martha Older [employer].CERTIFIED MEDICAL AIDE Work Phone: [facility] [place] Comment on above: Refill Request Start: 09-23-2024 End: 09-23-2024 Refill Martha Older [employer].CERTIFIED MEDICAL AIDE Work Phone: Internal Medicine [place] Comment on above: Refill Request Start: 09-14-2024 End: 09-14-2024 [facility] Facility:[facility] Start: 09-14-2024 End: 09-14-2024 Office outpatient visit 25 minutes Russ Barone MD Work Phone: [facility] [place] Comment on above: Medicare annual well ness visit, subsequent (Primary Dx); Encounter for immunization; Arthritis of carpometacarpal (CMC) joint of right thumb; Medication management; Hypothyroidism, unspecified type; Essential hypertension, benign Start: 09-14-2024 End: 09-14-2024 Patient encounter procedure Russ Barone MD Work Phone: [facility] Start: 09-10-2024 End: 11-10-2024 Follow-up encounter Martha Funk APRN.CERTIFIED MEDICAL AIDE Work Phone: Family [facility] [place] Start: 09-08-2024 End: 09-08-2024 ambulatory MARTHALisa FUNK Facility:[facility] Start: 09-08-2024 Patient encounter procedure MARTHA FUNK [facility] Start: 08-28-2024 End: 09-01-2024 Refill Vanessa Andrews [employer] CONTINUOUS PROCESSDaryaCERTIFIED MEDICAL AIDE Work Phone: [facility] Comment on above: Refill Request Start: 05-05-2024 End: 05-05-2024 Patient encounter procedure [facility] [place] Work Phone: Family [facility] [place] Start: 05-05-2024 End: 05-05-2024 ambulatory [facility] [place] Work Phone: [facility] [place] Start: 04-28-2024 [facility] Start: 04-28-2024 End: 04-29-2024 Telephone encounter Russ Barone MD Work Phone: [facility] [place] Comment on above: Orders; Immunization s (Flu vaccination) Start: 04-07-2024 End: 04-07-2024 ambulatory Martha Funk APRN.CERTIFIED MEDICAL AIDE Work Phone: [facility] [place] Comment on above: Flu shot Start: 03-19-2024 End: 03-22-2024 Telephone encounter Martha Funk APRN.CERTIFIED MEDICAL AIDE Work Phone: [facility] [place] Comment on above: Results Start: 03-18-2024 End: 03-18-2024 Patient encounter procedure Martha Funk APRN.CERTIFIED MEDICAL AIDE Work Phone: Internal Medicine [place] Comment on above: Essential hypertensi on, benign (Primary Dx); Hypothyroidism, unspecified type; Herpes zoster without complication; Annual physical exam Start: 03-06-2024 End: 03-06-2024 Telephone encounter Stephaniedustin García PUMA.[facility] Work Phone: [place] [facility] Comment on above: Results Start: 03-05-2024 End: 03-05-2024 Patient encounter procedure Stephanie García [employer].[facility] Work Phone: [place] [facility] Comment on above: Oral lesion (Primary Dx); Left ear pain Start: 03-03-2024 End: 03-03-2024 Refill Manasa Menchaca APRN.[facility] Work Phone: [place] [facility] Comment on above: Refill Request Hives (Primary Dx) Start: 09-17-2023 End: 09-17-2023 Patient encounter procedure Martha Funk APRN.[facility] Work Phone: Internal Medicine [place] Comment on above: Medicare annual [facility] visit, subsequent (Primary Dx); Hypothyroidism, unspecified type; Essential hypertension, benign; Mixed hyperlipidemia; Medication management Start: 09-03-2023 Refill Martha Funk APRN .[facility] Work Phone: [place] [facility] Comment on above: Refill Request Start: 03-19-2023 End: 03-19-2023 Patient encounter procedure Martha Funk APRN.[facility] Work Phone: Internal Medicine [place] Comment on above: Essential hypertensi on, benign (Primary Dx); Mixed hyperlipidemia; Hypothyroidism, unspecified type; Need for influenza vaccination; Annual physical exam Start: 03-18-2023 Telephone encounter Sara Flores APRN.[facility] Work Phone: [place] [facility] Comment on above: Results Start: 03-05-2023 Get Medical Advice Jarocho Antonio MD Work Phone: [place] [facility] Comment on above: refill Losartan Start: 09-16-2022 End: 09-16-2022 Patient encounter procedure Russ Barone MD Work Phone: [facility] [place] Comment on above: Elevated MCV (Primar y Dx); Hypothyroidism, unspecified type; Essential hypertension, benign; Mixed hyperlipidemia Start: 09-14-2022 Telephone encounter Russ rodriguez MD Work Phone: [facility] [place] Comment on above: Results Start: 03-18-2022 End: 03-18-2022 Patient encounter procedure Russ Barone MD Work Phone: [facility] [place] Comment on above: Essential hypertensi on, benign (Primary Dx); Need for influenza vaccination; Mixed hyperlipidemia; Hypothyroidism, unspecified type; Elevated blood sugar Start: 03-05-2022 ambulatory Russ Santiago Work Phone: Internal Medicine [facility] Start: 10-04-2021 Refill Cedric MCPHERSONCERTIFIED MEDICAL AIDE Work Phone: Internal Medicine [place] Comment on above: Refill Request Procedures Date Procedure Procedure Detail Performing Clinician Start: 02-16-2025 Urnls dip stick/tabl et rgnt auto w/o microscopy Martha Funk [employer].CERTIFIED MEDICAL AIDE Work Phone: Start: 02-14-2025 Estimated creatinine clearance [...] YR, QUADRIVALENT (AFLURIA, FLULAVAL, FLUZONE) Martha Funk [employer].CERTIFIED MEDICAL AIDE Work Phone: Start: 03-18-2022 INFLUENZA VACCINE QUADRIVALENT 6 MO - 64 YRS IM Russ Barone MD Work Phone: Plan of Treatment Date Care Activity Detail Author Start: 03-21-2028 Diabetes Screening Diabetes Screenin [facility] Start: 02-17-2028 Diabetes Screening Diabetes Screenin g [facility] Start: 09-09-2027 Diabetes Screening Diabetes Screenin g [facility] Start: 03-18-2027 Diabetes Screening Diabetes Screenin g [facility] Start: 09-09-2026 Diabetes Screening Diabetes Screenin g [facility] Start: 09-11-2025 DIABETES SCREEN DIABETES SCREEN [facility] Start: 09-11-2025 Diabetes Screening Diabetes Screenin g [facility] Start: 04-13-2025 End: 04-13-2025 Patient encounter procedure 04/13/2025 10:00 AM EDT Office Visit [facility] [place] [address] [place], [place] [id number] Russ Barone MD [address] [place], [place] [id number] follow up for ct/ultrasound [facility] [place] Comment on above: follow up for ct/ult rasound Start: 04-07-2025 End: 04-07-2025 ambulatory 04/07/2025 10:00 AM EDT OT/PT/Speech Visit [facility] [address] [place], [place] [id number] Justin Ohara, PT [address] [place] [address] : Neck pain [M54.2] [facility] Comment on above: : Neck pain [M54.2] Start: 04-06-2025 End: 04-06-2025 Patient encounter procedure Cat Scan Comment on above: x: Infection in abdo men (HCC) [K65.9]; Other elevated white blood cell (WBC) count [D72.828] Start: 03-24-2025 End: 03-24-2025 Patient encounter procedure 03/24/2025 9:15 AM EDT Appointment Rad[facility] [address] [facility] [place] [place] [id number] : Dilated intrahepatic bile d Radiology Comment on above: : Dilated intrahepat ic bile d Start: 03-21-2025 End: 03-21-2025 Patient encounter procedure 03/21/2025 9:00 AM EDT Office Visit [facility] [place] [address] [place] [address] Russ Barone MD [address] [place] [address] 6 month follow up [facility] [place] Comment on above: 6 month follow up Start: 03-19-2025 End: 06-17-2025 Thyrotropin [Units/volume] in Serum or Plasma THYROID STIMULATING HORMONE Lab Routine Medication management Hypothyroidism, unspecified type Expected: 03/19/2025 (Approximate), Expires: 06/17/2025 [facility] Work Phone: Comment on above: Expected: 03/19/2025 (Approximate), Expires: 06/17/2025 Start: 03-19-2025 End: 06-17-2025 Thyroxine (T4) free [Mass/volume] in Serum or Plasma T4 FREE/FREE THYROXINE Lab Routine Medication management Hypothyroidism, unspecified type Expected: 03/19/2025 (Approximate), Expires: 06/17/2025 [facility] Comment on above: Expected: 03/19/2025 (Approximate), Expires: 06/17/2025 Start: 03-18-2025 Covid-19 Vaccine ( season) Covid-19 Vaccine ( season) [facility] Comment on above: Postponed from 03/07 (Declined at this time) Start: 03-18-2025 Covid-19 Vaccine ( season) Covid-19 Vaccine ( season) [facility] Comment on above: Postponed from 03/07 (Declined at this time) Start: 03-07-2025 Influenza vaccination Influenza Vacc ine (#1) [facility] Start: 02-14-2025 [facility] Start: 02-10-2025 [facility] Start: 01-03-2025 Influenza vaccination Influenza Vacc ine (#1) [facility] Comment on above: Postponed from 03/07 (Declined at this time) Start: 09-16-2024 RSV Vaccine (1 - 1-d ose 60+ series) RSV Vaccine (1 - 1-dose 60+ series) [facility] Comment on above: Postponed from 08/12 (Declined at this time) Start: 09-16-2024 RSV Vaccine (1 - 1-d ose 75+ series) RSV Vaccine (1 - 1-dose 75+ series) [facility] Comment on above: Postponed from 08/12 (Declined at this time) Start: 09-14-2024 End: 09-14-2024 Patient encounter procedure 09/14/2024 8:00 AM EDT Office Visit [facility] [place] [address] [facility] [place] [address] Russ Barone MD [address] [facility] [place] [address] Medicare Wellness [facility] [place] Comment on above: Medicare Wellness Start: 09-10-2024 DIABETES SCREEN DIABETES SCREEN [facility] Start: 09-08-2024 End: 09-08-2024 ambulatory 09/08/2024 8:45 AM EST Results Only [facility] [address] [facility] [place] [address] [facility] Start: 09-06-2024 End: 12-06-2024 CBC panel - Blood by Automated count COMPLETE BLOOD COUNT Lab Routine Annual physical exam Expected: 09/06/2024 (Approximate), Expires: 12/06/2024 [facility] Comment on above: Expected: 09/06/2024 (Approximate), Expires: 12/06/2024 Start: 09-06-2024 End: 12-06-2024 Comprehensive metabolic 2000 panel - Serum or Plasma COMPREHENSIVE METABOLIC PANEL Lab Routine Annual physical exam Expected: 09/06/2024 (Approximate), Expires: 12/06/2024 [facility] Comment on above: Expected: 09/06/2024 (Approximate), Expires: 12/06/2024 Start: 09-06-2024 End: 12-06-2024 Lipid 1996 panel - Serum or Plasma LIPID PANEL BASIC Lab Routine Annual physical exam Expected: 09/06/2024 (Approximate), Expires: 12/06/2024 [facility] Comment on above: Expected: 09/06/2024 (Approximate), Expires: 12/06/2024 Start: 09-06-2024 End: 12-06-2024 Thyrotropin [Units/volume] in Serum or Plasma THYROID STIMULATING HORMONE Lab Routine Hypothyroidism, unspecified type Expected: 09/06/2024 (Approximate), Expires: 12/06/2024 [facility] Comment on above: Expected: 09/06/2024 (Approximate), Expires: 12/06/2024 Start: 05-05-2024 End: 05-05-2024 Patient encounter procedure 05/05/2024 3:20 PM EDT Immunization [facility] [place] [address] [place], [place] [phone] [place], Immunization Clinic Nurse [address] [facility], [place] [id number] Flu vaccine (regular dose) [facility] [place] Comment on above: Flu vaccine (regular dose) Start: 03-19-2024 Covid-19 Vaccine (2022- season) Covid-19 Vaccine ( - 2022- season) [facility] Comment on above: Postponed from 03/07 (Declined at this time) Start: 03-19-2024 Covid-19 Vaccine (6 - Moderna series) Covid-19 Vaccine (6 - Moderna series) [facility] Comment on above: Postponed from 08/26 (Declined at this time) Start: 03-19-2024 Shingrix Vaccine (2 of 3) Núñez grix Vaccine (2 of 3) [facility] Comment on above: Postponed from 06/13 (Declined at this time) Start: 03-19-2024 Urine microalbumin profile DTa P,Tdap,Td Vaccine (1 - Tdap) [facility] Comment on above: Postponed from 04/09 (Declined at this time) Start: 03-18-2024 End: 06-17-2024 Basic metabolic 2000 panel - Serum or Plasma [facility] Comment on above: Expected: 03/18/2024 , Expires: 06/17/2024 Start: 03-18-2024 End: 06-17-2024 Thyrotropin [Units/volume] in Serum or Plasma [facility] Work Phone: Comment on above: Expected: 03/18/2024 , Expires: 06/17/2024 Start: 03-18-2024 End: 06-17-2024 Thyroxine (T4) free [Mass/volume] in Serum or Plasma [facility] Comment on above: Expected: 03/18/2024 , Expires: 06/17/2024 Start: 03-18-2024 End: 06-17-2024 Triiodothyronine (T3) Free [Mass/volume] in Serum or Plasma [facility] Comment on above: Expected: 03/18/2024 , Expires: 06/17/2024 Start: 03-18-2024 End: 03-18-2024 Patient encounter procedure 03/18/2024 8:00 AM EDT Office Visit Internal Medicine [place] [address], [place] [id number] Martha Funk APRN.CERTIFIED MEDICAL AIDE [address], [place] [id number] 6 month follow up [facility] [place] Comment on above: 6 month follow up Start: 03-07-2024 Influenza vaccination Influenza Vacc ine (#1) [facility] Start: 03-05-2024 End: 06-04-2024 Herpes simplex virus+Varicella zoster virus DNA [Presence] in Unspecified specimen by PRABHJOT with probe detection HSV1,2/VZV NAAT LESION Lab Routine Oral lesion Expected: 03/05/2024, Expires: 06/04/2024 [facility] Work Phone: Comment on above: Expected: 03/05/2024 , Expires: 06/04/2024 Start: 10-18-2023 End: 01-17-2024 Thyrotropin [Units/volume] in Serum or Plasma TSH BLD Lab Routine Hypothyroidism, unspecified type Medication management Expected: 10/18/2023 (Approximate), Expires: 01/17/2024 [facility] Work Phone: Comment on above: Expected: 10/18/2023 (Approximate), Expires: 01/17/2024 Start: 10-18-2023 End: 01-17-2024 Thyroxine (T4) free [Mass/volume] in Serum or Plasma T4 FREE/FREE THYROX Lab Routine Hypothyroidism, unspecified type Medication management Expected: 10/18/2023 (Approximate), Expires: 01/17/2024 [facility] Work Phone: Comment on above: Expected: 10/18/2023 (Approximate), Expires: 01/17/2024 Start: 09-09-2023 End: 11-09-2023 CBC panel - Blood by Automated count CBC Lab Routine Annual physical exam Essential hypertension, benign Expected: 09/09/2023 (Approximate), Expires: 11/09/2023 [facility] Work Phone: Comment on above: Expected: 09/09/2023 (Approximate), Expires: 11/09/2023 Start: 09-09-2023 End: 11-09-2023 Comprehensive metabolic 2000 panel - Serum or Plasma COMP METABOLIC PANEL Lab Routine Annual physical exam Essential hypertension, benign Mixed hyperlipidemia Expected: 09/09/2023 (Approximate), Expires: 11/09/2023 [facility] Work Phone: Comment on above: Expected: 09/09/2023 (Approximate), Expires: 11/09/2023 Start: 09-09-2023 End: 11-09-2023 Lipid 1996 panel - Serum or Plasma LIPID PANEL BASIC Lab Routine Annual physical exam Mixed hyperlipidemia Expected: 09/09/2023 (Approximate), Expires: 11/09/2023 [facility] Work Phone: Comment on above: Expected: 09/09/2023 (Approximate), Expires: 11/09/2023 Start: 09-09-2023 End: 11-09-2023 Thyrotropin [Units/volume] in Serum or Plasma TSH BLD Lab Routine Annual physical exam Hypothyroidism, unspecified type Expected: 09/09/2023 (Approximate), Expires: 11/09/2023 [facility] Work Phone: Comment on above: Expected: 09/09/2023 (Approximate), Expires: 11/09/2023 Start: 03-07-2023 Influenza vaccination INFLUENZA (#1) [facility] Start: 09-16-2022 End: 11-16-2022 Cobalamin (Vitamin B12) [Mass/volume] in Serum or Plasma VITAMIN B12 BLOOD Lab Routine Elevated MCV Expected: 09/16/2022, Expires: 11/16/2022 [facility] Work Phone: Comment on above: Expected: 09/16/2022 , Expires: 11/16/2022 Start: 09-16-2022 End: 11-16-2022 Thyrotropin [Units/volume] in Serum or Plasma TSH BLD Lab Routine Hypothyroidism, unspecified type Expected: 09/16/2022, Expires: 11/16/2022 [facility] Work Phone: Comment on above: Expected: 09/16/2022 , Expires: 11/16/2022 Start: 09-15-2022 End: 11-15-2022 CBC W Auto Differential panel - Blood CBC + DIFF Lab Routine Essential hypertension, benign Expected: 09/15/2022, Expires: 11/15/2022 [facility] Work Phone: Comment on above: Expected: 09/15/2022 , Expires: 11/15/2022 Start: 09-15-2022 End: 11-15-2022 Comprehensive metabolic 2000 panel - Serum or Plasma COMP METABOLIC PANEL Lab Routine Essential hypertension, benign Expected: 09/15/2022, Expires: 11/15/2022 [facility] Work Phone: Comment on above: Expected: 09/15/2022 , Expires: 11/15/2022 Start: 09-15-2022 End: 11-15-2022 Lipid 1996 panel - Serum or Plasma LIPID PANEL BASIC Lab Routine Essential hypertension, benign Expected: 09/15/2022, Expires: 11/15/2022 [facility] Work Phone: Comment on above: Expected: 09/15/2022 , Expires: 11/15/2022 Start: 08-26-2022 COVID-19 VACCINE (6 - Moderna series) COVID-19 VACCINE (6 - Moderna series) [facility] Start: 03-07-2022 Influenza vaccination INFLUENZA (#1) [facility] Start: 03-05-2022 End: 05-05-2022 SCHEDULE LAB TESTING SCHEDULE LAB TESTING Lab Routine Expected: 03/05/2022, Expires: 05/05/2022 [facility] Work Phone: Comment on above: Expected: 03/05/2022 , Expires: 05/05/2022 Start: 03-05-2022 End: 05-05-2022 Thyrotropin [Units/volume] in Serum or Plasma TSH BLD Lab Routine Hypothyroidism Expected: 03/05/2022, Expires: 05/05/2022 [facility] Work Phone: Comment on above: Expected: 03/05/2022 , Expires: 05/05/2022 Start: 09-03-2021 COVID-19 VACCINE (4 - Booster for Moderna series) COVID-19 VACCINE (4 - Booster for Moderna series) [facility] Start: 2013 RSV Vaccine (1 - 1-d ose 75+ series) RSV Vaccine (1 - 1-dose 75+ series) [facility] Start: 06-13-2011 SHINGRIX VACCINE (2 of 3) NÚÑEZ GRIX VACCINE (2 of 3) [facility] Start: 04-09-2006 Urine microalbumin profile [facility] Start: 1998 RSV Vaccine (1 - 1-d ose 60+ series) RSV Vaccine (1 - 1-dose 60+ series) [facility] Start: 1956 Anxiety Screening Anxiety Screening [facility] End: 04-20-2026 CT Abdomen and Pelvis W contrast IV CT ABD/PEL W IVCON Radiology Routine Infection in abdomen (HCC) Other elevated white blood cell (WBC) count 1 Occurrences starting 03/21/2025 until 04/20/2026 [facility] Work Phone: Comment on above: 1 Occurrences starti ng 03/21/2025 until 04/20/2026 Iiv3 vaccine split v irus 0.5 ml dosage im use INFLUENZA VACCINE, AGE 6MO-64YR, TRIVALENT (AFLURIA, FLULAVAL, FLUVIRIN, FLUZONE) Immunization/Injection Routine Need for influenza vaccination Ordered: 04/28/2024 [facility] Work Phone: Comment on above: Ordered: 04/28/2024 Microscopic urinalysis [facility] Organism count, microscopic method [facility] Patient Education [facility] Work Phone: Urinalysis complete panel - Urine URINALYSIS (WITH MICROSCOPIC) WITH CULTURE IF INDICATED Lab Routine Hematuria, unspecified type Proteinuria, unspecified type 02/16/2025 2:48 PM EDT [facility] Urine microscopy: epithelial cells [facility] Urine microscopy: re d cells [facility] End: 04-20-2026 US Abdomen RUQ US ABD RIGHT UPPER QUADRANT Radiology Routine Dilated intrahepatic bile duct 1 Occurrences starting 03/21/2025 until 04/20/2026 [facility] Comment on above: 1 Occurrences starti ng 03/21/2025 until 04/20/2026 White blood cell count [facility] End: 04-20-2026 XR Cervical spine AP and Lateral and oblique XR CERV OTHER 4V AP/LAT/OBL Radiology Routine Neck pain 1 Occurrences starting 03/21/2025 until 04/20/2026 [facility] Comment on above: 1 Occurrences starti ng 03/21/2025 until 04/20/2026 XR Cervical spine AP and Lateral and oblique XR CERV OTHER 4V AP/LAT/OBL Radiology Routine Neck pain 03/21/2025 10:44 AM EDT [facility] Immunizations Immunization Date Immunization Notes Care Provider [facility] 05-05-2024 influenza, seasonal, injectable Immunization [place] Work Phone: [facility] 05-05-2024 influenza virus vaccine, unspecified formulation Martha Funk [employer]INUOUS PROCESS.CERTIFIED MEDICAL AIDE Work Phone: [facility] 03-19-2023 influenza, injectabl e, quadrivalent, contains preservative Martha Funk [employer].CERTIFIED MEDICAL AIDE Work Phone: [facility] 03-19-2023 influenza virus vaccine, unspecified formulation Manasa Menchaca [employer]OUS [employer].CERTIFIED MEDICAL AIDE Work Phone: [facility] 03-18-2022 influenza, injectabl e, quadrivalent, contains preservative Russ Barone MD Work Phone: [facility] Work Phone: 03-29-2021 influenza, high dose seasonal, preservative-free Cedric Stout [employer]OUS PROC[employer].CERTIFIED MEDICAL AIDE Work Phone: [facility] 08-24-2020 COVID-19 vaccine, fu ll dose (MODERNA) Cedric Stout [employer].[facility] Work Phone: [facility] 07-27-2020 COVID-19 vaccine, fu ll dose (MODERNA) Cedric Stout [employer]OUS PROC[employer].CERTIFIED MEDICAL AIDE Work Phone: [facility] 03-14-2020 influenza, high dose seasonal, preservative-free Cedric Stout [employer]OUS [employer].[facility] Work Phone: [facility] Work Phone: 04-11-2018 influenza, injectabl e, quadrivalent, contains preservative Cedric Stout [employer]OUS [employer].[facility] Work Phone: [facility] 03-24-2017 influenza, high dose seasonal, preservative-free Cedric Stout [employer]OUS [employer].CERTIFIED MEDICAL AIDE Work Phone: [facility] 05-06-2016 pneumococcal conjuga te vaccine, 13 valent Cedric Stout [employer]OUS [employer].[facility] Work Phone: [facility] Work Phone: 03-22-2016 influenza, high dose seasonal, preservative-free Cedric Stout [employer]OUS [employer].[facility] Work Phone: [facility] 05-09-2015 influenza, high dose seasonal, preservative-free Cedric Stout [employer] CONT[employer]OUS PROCESS.CERTIFIED MEDICAL AIDE Work Phone: [facility] Work Phone: 05-16-2012 influenza virus vaccine, unspecified formulation Cedric Stout [employer]OUS PROCESS.CERTIFIED MEDICAL AIDE Work Phone: [facility] Work Phone: 04-18-2011 zoster vaccine, live Cedric rojo [employer]OUS PROC[employer].CERTIFIED MEDICAL AIDE Work Phone: [facility] 05-05-2007 influenza virus vaccine, unspecified formulation Cedric Stout [employer] CONT[employer]OUS [employer].[facility] Work Phone: [facility] Work Phone: 04-08-2006 tetanus and diphther ia toxoids, adsorbed, preservative free, for adult use (2 Lf of tetanus toxoid and 2 Lf of diphtheria toxoid) Cedric Stout APRN.[facility] Work Phone: [facility] Work Phone: 05-16-2005 influenza virus vaccine, unspecified formulation Cedric Stout APRN.[facility] Work Phone: [facility] Work Phone: 11-13-2003 pneumococcal polysaccharide vaccine, 23 valent Cedric Stout APRN.[facility] Work Phone: [facility] Work Phone: 04-03-1998 pneumococcal polysaccharide vaccine, 23 valent Cedric Stout APRN.[facility] Work Phone: [facility] Work Phone: 10-19-1996 tetanus and diphther ia toxoids, adsorbed, preservative free, for adult use (2 Lf of tetanus toxoid and 2 Lf of diphtheria toxoid) Cedric Stout APRN.[facility] Work Phone: [facility] Work Phone: 09-15-1972 tetanus and diphther ia toxoids, adsorbed, preservative free, for adult use (2 Lf of tetanus toxoid and 2 Lf of diphtheria toxoid) Cedric Stout APRN.[facility] Work Phone: [facility] Work Phone: Payers Date Payer Category Payer Self-pay 2014 Medicare (Managed Care) PRIMETIM E [id number] 2014 Unknown PRIMETIME [employer] HMO POS [id number] 2014-Present [phone] [address] [place] [address] O [id number] 2014 Unknown [id number] 2014 Unknown [id number] Medicare Unknown [id number] Unknown [id number] Unknown [id number] Social History Date Type Detail Facility Start: 04-18-2011 End: 02-14-2025 Tobacco smoking status NHIS Never smoked tobacco [facility] Start: 09-12-2021 End: 03-21-2025 Alcohol intake Current non-drinker of alcohol (finding) [facility] Start: 09-05-2021 End: 09-09-2022 History SDOH Alcohol Frequency 1 [facility] Start: 09-05-2021 End: 09-09-2022 History SDOH Alcohol Std Drinks 98 [facility] Start: 09-05-2021 End: 09-09-2022 History SDOH Social Connections Phone 4 [facility] Start: 09-05-2021 End: 09-09-2022 History SDOH Social Connections Membership 2 [facility] Start: 09-05-2021 End: 09-09-2022 History SDOH Social Connections Living 5 [facility] Start: 09-05-2021 End: 09-09-2022 History SDOH Physical Activity MPS 3 [facility] Start: 11-25-2019 Education 12 [facility] Start: 1940 Sex Assigned At Female C [facility] Start: 08-13-2021 End: 03-18-2022 Exposure to SARS-CoV-2 (event) Not sure [facility] Start: 04-18-2011 Tobacco use and exposure Smoke less tobacco non-user [facility] Start: 09-09-2022 History SDOH Alcohol Std Drinks 0 [facility] Start: 09-09-2022 End: 09-10-2023 History of Social function [facility] Start: 09-09-2022 End: 09-10-2023 Social connection and isolation panel [facility] Start: 06-07-2012 How often do you att end mosque or confucianist services? Patient refused [facility] Do you belong to any clubs or organizations such as mosque groups, unions, fraKuona or athletic groups, or school groups? Yes [facility] Are you now , , , , never or living with a partner? [facility] How often to you hav e a drink containing alcohol? Never [facility] Do you feel stress - tense, restless, nervous, or anxious, or unable to sleep at night because your mind is troubled all the time - these days [OSQ] Not at all [facility] (I/We) worried wheth er (my/our) food would run out before (I/we) got money to buy more. Never true [facility] In the past 12 month s, was there a time when you were not able to pay the mortgage or rent on time? No [facility] Start: 03-02-2020 Gender identity Identifies as female gender (finding) [facility] Start: 03-02-2020 Sexual orientation Heterosexual (fanny hernandez) [facility] Functional Status Date Assessment Result Facility 11-01-2014 Are you deaf, or do you have serious difficulty hearing No 11/01/2014 3:20 PM Alaina Adkins LPN No [facility] 11-01-2014 Are you blind, or do you have serious difficulty seeing, even when wearing glasses No 11/01/2014 3:20 PM Alaina Adkins LPN No [facility] 11-01-2014 Do you have serious difficulty walking or climbing stairs Yes 11/01/2014 3:20 PM Alaina Adkins LPN Yes [facility] 11-01-2014 Do you have difficul ty dressing or bathing No 11/01/2014 3:20 PM Alaina Adkins LPN No [facility] 11-01-2014 Because of a physica l, mental, or emotional condition, do you have difficulty doing errands alone such as visiting a physician's office or shopping No 11/01/2014 3:20 PM EDT Alaina Whaley LPN No [facility] Mental Status Date Assessment Result Facility 02-14-2025 Cognitive function Level Of Cons ciousness Awake;Alert;Appropriate;Fol lows Commands [facility] Work Phone: 11-01-2014 Because of a physica l, mental, or emotional condition, do you have serious difficulty concentrating, remembering, or making decisions No 11/01/2014 3:20 PM EDT Alaina Whaley LPN No [facility] Clinical Notes 10-04-2021 to 03-21-2025 Addendum Note - Russ Barone MD - 03/21/2025 4:54 PM EDTAddendum Note - Russ Barone MD - 03/21/2025 4:54 PM EDTGRuss brantley MD - 03/21/2025 1:05 PM EDTPatient InstructionsPatient Instructions Note Date & Type Note Facility 03-21-2025 Note Addended by: RUSS BARONE on: 03/21/2025 04:54 PM Modules accepted: Orders [facility] 03-21-2025 Miscellaneous Notes Addended by: RUSS BARONE on: 03/21/2025 04:54 PM Modules accepted: Orders documented in this encounter [facility] 03-21-2025 Note HNO ID: [id number] Author: RUSS BARONE MD Service: ? Author [...] food. She has an appointment with a casino change attendant at the end of April. A recent [...] lbs), initially attribut (more content not included)... [facility] 03-21-2025 History of Present illness Narrative Reason [...] food. She has an appointment with a casino change attendant at the end of April. A recent [...] excuse any unintended typographical errors. Recording using Dizzion software for draft documentation of the visit was discussed with the patient/authorized bilingual inside sales representative; all questions welcomed and answered. Patient/authorized bilingual inside sales representative agreed to proceed Russ Barone MD [1] Social History Tobacco Use Smoking status: Never Smokeless tobacco: Never Vaping Use Vaping status: Never Used Substance Use Topics Alcohol use: No Drug use: No documented in this encounter [facility] 03-21-2025 History of Present illness Narrative [...] PATIENT PRESENTS WITH AN IMPLANTABLE OR ATTACHED TAN ROOM SUPERVISOR: No RADIOLOGY DEPARTMENT: General X-ray: Exam(s) Completed: Spine X-Ray(s): Cervical AP / LAT / OBL PERIPHERAL IV DATA: Not applicable SIGNED BY: RT Dori(R) March 21, 2025 10:34 AM documented in this encounter [facility] 03-21-2025 Note HNO ID: [id number] Author: KIMBERLY LUX RT(R) Service: ? Author [...] PATIENT PRESENTS WITH AN IMPLANTABLE OR ATTACHED TAN ROOM SUPERVISOR: No RADIOLOGY DEPARTMENT: General X-ray: Exam(s) Completed: Spine X-Ray(s): Cervical AP / LAT / OBL PERIPHERAL IV DATA: Not applicable SIGNED BY: RT Dori(R) March 21, 2025 10:34 AM [facility] 03-21-2025 Instructions Russ Barone MD - 03/21/2025 [...] addressing these issues. documented in this encounter [facility] 03-03-2025 Telephone encounter Note The following [...] with food. Authorizing Provider: RUSS BARONE MA [facility] 03-03-2025 Miscellaneous Notes The following approved [...] Manisha Appiah LPN. documented in this encounter [facility] 03-02-2025 Telephone encounter Note Patient is calling to see if medication filled before she runs out Rosa Beckwith MA [facility] 03-01-2025 Telephone encounter Note Patient has [...] Please advise. Thank you. Manisha Appiah LPN. [facility] 02-17-2025 Telephone encounter Note Patient notified. Referral faxed to Dr Ortez office. [facility] 02-17-2025 Miscellaneous Notes Patient notified. Referral [...] Martha Funk APRN.SHANNON documented in this encounter [facility] 02-17-2025 Telephone encounter Note I reviewed her blood work and current symptoms with Dr. aBrone. We thinks she needs to see gastroenterology, Dr, Friend JANINA, and try another antibiotic. Unfortunately she has not tolerated the best antibiotics for this. I have sent in for cephalexin which she has been on in the past. Thank you Martha Funk APRN.CNP [facility] 02-16-2025 Note HNO ID: [id number] Author: MARTHA FUNK APRN.CNP Service: ? Author Type: Nurse Practitioner Type: Progress Notes Filed: 02/16/2025 19:00 Note Text: CC: Patient presents with: Recheck: ER follow up, no appetite, fatigue HPI Paty Rios is a 84 year old female who presents today for ER follow up. Recording using Dizzion software for draft documentation of the visit was discussed with the patient/authorized bilingual inside sales representative; all questions welcomed and answered. Patient/authorized bilingual inside sales representative agreed to proceed Colitis: - Recent [...] REVIEWED: Most recent labs Outside chart from [facility] reviewed. Assessment/Plan 1. Weakness (R53.1) 2. Decreased appetite (R63.0) 3. Other fatigue (R53.83) - Ongoing weakness and decreased appetite following recent colitis and dehydration; (more content not included)... [facility] 02-16-2025 History of Present illness Narrative CC: Patient presents with: Recheck: ER follow up, no appetite, fatigue HPI Paty Rios is a 84 year old female who presents today for ER follow up. Recording using Dizzion software for draft documentation of the visit was discussed with the patient/authorized bilingual inside sales representative; all questions welcomed and answered. Patient/authorized bilingual inside sales representative agreed to proceed Colitis: - Recent [...] REVIEWED: Most recent labs Outside chart from [facility] reviewed. Assessment/Plan 1. Weakness (R53.1) 2. [...] Drug use: No documented in this encounter [facility] 02-16-2025 Instructions Martha Funk APRN.CNP - [...] for further guidance. documented in this encounter [facility] 02-14-2025 Discharge summary [facility] 02-14-2025 Discharge summary Note Date/Time February 14, 2025 3:03pm [facility] Medical Records Department [address] [place] [address] Emergency Department Summary 02/14/25 MR#: [id number] Acct: [id number] Name: PATY RIOS Rep #:[id number] : 1940 84 From: Suhail Delacruz MD [...] Prior similar symptoms: Yes Recent Illness/Hospitalization: No [facility] Medical History Osteoarthritis Hyperglycemia Hypertension Hypothyroidism [...] 86.0 H Lymph % (Auto) 5.3 L Bracken % (Auto) 7.3 Eos % (Auto) 0.1 [...] Care Provider] - 3-5 Days Print Language: Croatian Disposition Disposition: Home, Self Care What to do if you have Problems For any increased pain, shortness of breath, bleeding, nausea or vomiting, chestpain, or any unexpected problems, contact your Primary Care Provider. Call [facility] ([phone]) or report to the closest Emergency Room. Call 911 if necessary. 02/14/25 1503 <Electronically signed by Suhail Delacruz MD> Cosigner Signature (if applicable): CC: Dr. Russ Barone MD ~ Signed [facility] Work Phone: 1(391) 388-440508-07-2025 Radiology Diagnostic study note [facility] Imaging Services [address] [place] [address]84 Abdomen/Pelvis W IV Cont ONLY MR#: [id number] Acct: [id number] Name: PATY RIOS Rep #: [id number] : 1940 F 84 From: Per Rubio MD PCP: Dr. Russ Barone MD Status: REG E R Study:Abdomen/Pelvis W IV Cont ONLY Date of E xam: 02/10/25 Exam# [id number] Ordering Dr: Elvira Moore PROCEDURE: ABDOMEN/PELVIS W [...] of the ampulla is possible. Reading Location: [id number] CC: Dr. Russ Barone MD; ARIANA Leiva ~ Billet Recorder: Signed [facility]08-06-2025 NoteHNO ID: [id number] Author: MARTHA FUNK APRN.CERTIFIED MEDICAL AIDE Service: ? Author Type: Nurse Practitioner Type: [...] Completed Advance Directive Discussio (more content not included)...[facility]06-04-2025 Telephone encounter Note* Telephone Encounter - [...] Please advise. Thank you. Manisha Appiah LPN. [facility]06-04-2025 Miscellaneous Notes* Telephone Encounter - Manisha [...] you. Manisha Appiah LPN. [facility] Telephone encounter Note * Telephone Encounter [...] Please advise. Thank you. Manisha Appiah LPN. [facility]04-14-2025 Miscellaneous Notes* Telephone Encounter - Manisha [...] you. Manisha Appiah LPN. [facility] Telephone encounter Note * Telephone Encounter [...] Castanon LPN September 24, 2024 9:33 AM [facility]03-21-2025 Miscellaneous Notes* Telephone Encounter - Naida [...] 24, 2024 9:33 AM [facility] Telephone encounter Note * Telephone Encounter [...] OSWALDO Call September 23, 2024 9:08 AM [facility]03-20-2025 Miscellaneous Notes* Telephone Encounter - Veena [...] 23, 2024 9:08 AM documented in this encounterAk[facility]25 NoteHNO ID: [id number] Author: RUSS BARONE MD Service: ? Author Type: Physician Type: Progress Notes Filed: 09/14/2024 08:47 Note Text: Paty Rios is a 84 year old female here for a Medicare wellness visit. Medicare Health Risk Assessment General Health Excellent Exercise: Minutes/Day 30 min Exercise: Days/Week 3 days she walks around her house in the [facility]. Alcohol: Daily Use Never Alcohol: [...] 10 mg tablet Cet (more content not included)...[facility]03-11-2025 History of Present illness Narrative* Russ [...] any unintended typographical errors. documented in this encounterAk[facility] Telephone encounter Note * Telephone Encounter [...] Please advise. Thank you. Manisha Appiah LPN. [facility]02-24-2025 Miscellaneous Notes* Telephone Encounter - Manisha [...] you. Manisha Appiah LPN. documented in this encounterAkron [facility]10-[facility]24 Telephone encounter Note * Telephone Encounter - Karrie Russo LPN - 04/28/2024 2:19 PM EDT Patient requesting to have regular dose flu vaccine and not high dose. States that she broke out inhives and was severely nauseated the last time she received the high dose. Please review and advise. Karrie Russo LPN [facility]10-23-2024 Miscellaneous Notes* Telephone Encounter - Karrie Russo LPN - 04/28/2024 2:19 PM EDT Patient requesting to have regular dose flu vaccine and not high dose. States that she broke out inhives and was severely nauseated the last time she received the high dose. Please review and advise. Karrie Russo LPN documented in this encounterAkron [facility]09-[facility]-2024 Telephone encounter Note * Telephone Encounter - Martha Funk APRN.SHANNON - 03/22/2024 7:19 AM EDT Then no concerns on blood work. Thank you Martha Funk APRN.CNP [facility]09-16-2024 Miscellaneous Notes* Telephone Encounter - Martha Funk APRN.CNP - 03/22/2024 7:19 AM EDT Then no concerns on blood work. Thank you Martha Funk APRN.CNP * Telephone Encounter - Muriel Child LPN - 03/19/2024 3:07 PM EDT Patient returned call and went over results, notes from Martha Funk FISH FLIPPER with understanding. Patient said she was not [...] you Martha Funk APRN.CNP documented in this encounterAkron [facility]09-13-2024 Telephone encounter Note * Telephone Encounter - Muriel Child LPN - 03/19/2024 3:07 PM EDT Patient returned call and went over results, notes from Martha Funk FISH FLIPPER with understanding. Patient said she was not fasting for the lab work. [facility]09-13-2024 Telephone encounter Note* Telephone Encounter - Lyndsay Dunn LPN - 03/19/2024 10:10 AM EDT Called and left message for patient to call office back for results Lyndsay Dunn LPN March 19, 2024 10:12 AM [facility]09-13-2024 Telephone encounter Note* Telephone Encounter - Martha Funk APRN.CNP - 03/19/2024 9:39 AM EDT Blood work all in acceptable ranges. Blood sugar slightly elevated but is normal if this was not a fasting sample. If it was a fasting sample, I recommend we do a HgbA1c to further evaluate this. Thank you Martha Funk APRN.CNP [facility]09-12-2024 Instructions* Patient Instructions* Martha Funk APRN.CNP - 03/18/2024 8:22 AM EDT Over the counter cream/gel with lidocaine and/or vit E gel. documented in this encounterAkron [facility]09-12-2024 History of Present illness Narrative* Martha [...] plan. Martha Funk APRN.CNP documented in this encounterAkron [facility]08-31-2024 Telephone encounter Note * Telephone Encounter - Stephanie García APRN.CNP - 03/06/2024 12:56 PM EDT Called with patient informed that culture revealed shingles. GFR 72, started on Valtrex. Recommend to call ENT on Friday for evaluation. Tylenol/ibuprofen as needed for pain. Stephanie García APRN.CNP [facility]08-31-2024 Miscellaneous Notes* Telephone Encounter - Stephanie García APRN.CNP - 03/06/2024 12:56 PM EDT Called with patient informed that culture revealed shingles. GFR 72, started on Valtrex. Recommend to call ENT on Friday for evaluation. Tylenol/ibuprofen as needed for pain. Stephanie García APRN.CNP documented in this encounterAkron [facility]08-30-2024 Instructions* Patient Instructions* Stephanie García APRN.CNP - 03/05/2024 8:07 AM EDT Will send culture for cold sore, and notify of results Ofloxacin drops to right ear Pepcid 20 mg twice a day for 10 days Zyrtec 10 mg By mouth daily at bedtime documented in this encounterAkron Children'[facility] Hospital08-30-2024 History of Present illness Narrative* Stephanie García APRN.CNP - 03/05/2024 8:04 AM EDT Images from the original note were not included. Subjective The history is provided by the patient. No boring machine set up operator was used. PAT Rios is a 83 [...] have confirmed and edited as necessary, the [facility] Review of Systems Constitutional: Negative [...] indetail warranting prompt ER evaluation. Stephanie García APRN.CERTIFIED MEDICAL AIDE documented in this encounterAkron Children'[facility] Hospital08-28-2024 History of Present illness Narrative* Sara Flores APRN.CERTIFIED MEDICAL AIDE - 03/03/2024 2:31 PM EDT Images from [...] history is provided by the patient. No boring machine set up operator was used. Rash Review of Systems Constitutional: [...] switched. Sara Flores APRN.SHANNON documented in this encounterAkron Children'[facility] Hospital08-28-2024 Telephone encounter Note * Telephone Encounter [...] Please advise. Thank you. Manisha Appiah LPN. [facility]08-28[facility] Miscellaneous Notes* Telephone Encounter - Manisha [...] you. Manisha Appiah LPN. documented in this encounterAkron Children'[facility] Hospital03-13-2024 History of Present illness Narrative* MilagrosMarthaPUMA.CERTIFIED MEDICAL AIDE - 09/17/2023 8:15 AM EDT Images from [...] plan. Martha Funk APRN.CNP documented in this encounterAkron Children'[facility]03-13-2024 Instructions* Patient Instructions* Martha Funk APRN.CNP [...] review all the medicines you take, even mhlz-woo-zxysqkt medicines. As you get older, the way [...] have certain medical conditions. documented in this encounterAkron [facility]02-28-2024 Miscellaneous Notes* Telephone Encounter - Manisha [...] you. Manisha Appiah LPN. documented in this encounterAkron [facility]09-13-2023 History of Present illness Narrative* Martha Funk APRN.CERTIFIED MEDICAL AIDE - 03/19/2023 8:04 AM EDT CC: Patient [...] plan. Martha Funk APRN.CNP documented in this encounterAkron Children'[facility] Hospital09-13-2023 Miscellaneous Notes* Telephone Encounter - Lizbet Pham MA - 03/19/2023 7:41 AM EDT Patient notified of results, verbalized understanding and has f/u appt with Martha Older this AM. Lizbet Pham MA * Telephone Encounter - Sara Flores APRN.CNP - 03/18/2023 7:43 PM EDT Tsh is normal please have patient follow up with PCP. Thank you! documented in this encounterAkron [facility]03-13-2023 History of Present illness Narrative* Russ [...] medication. Russ Barone MD documented in this encounterAkron [facility]03-11-2023 Miscellaneous Notes* Telephone Encounter - Manisha [...] Regards, Russ Barone MD documented in this encounterAkron [facility]09-12-2022 History of Present illness Narrative* Russ [...] hypothyroidism Russ Barone MD documented in this encounterAkron [facility]03-31-2022 Miscellaneous Notes* Telephone Encounter - Manisha [...] you. Manisha Appiah LPN documented in this encounterAkron [facility]03-31-2022 Miscellaneous Notes* Telephone Encounter - Manisha [...] you. Manisha Appiah LPN documented in this encounterAkron [facility] Hospital03-31-2022 Miscellaneous Notes* Telephone Encounter - Claire [...] review. Claire Sheriff MA [facility]* Diagnosis Essential hypertension, benign [facility] Diagnosis Elevated blood sugar Other abnormal glucose [facility]* Diagnosis Hypothyroidism, unspecified type [facility]* Diagnosis Hypothyroidism Unspecified hypothyroidism documented in this encounter [facility]* Diagnosis Essential hypertension, benign- Primary Need for influenza vaccination Need for prophylactic vaccination and inoculation against influenza Mixed hyperlipidemia Hypothyroidism, unspecified type Elevated blood sugar Other abnormal glucose documented [facility]* Diagnosis Elevated MCV- Primary Other abnormality of red blood cells Hypothyroidism, unspecified type Essential hypertension, benign Mixed hyperlipidemia documented in this encounter [facility]* Diagnosis Elevated blood sugar Other abnormal glucose [facility] Diagnosis Essential hypertension, benign- Primary Mixed hyperlipidemia Hypothyroidism, unspecified type Need for influenza vaccination Need for prophylactic vaccination and inoculation against influenza Annual physical exam Routine general medical examination at a health care facility documented in this encounter [facility]* Diagnosis Elevated blood sugar Other abnormal glucose [facility] this encounter [facility]* Diagnosis Medicare annual wellness visit, subsequent- Primary Routine general medical examination at a health care facility Hypothyroidism, unspecified type Essential hypertension, benign Mixed hyperlipidemia Medication management Encounter for long-term (current) use of other medications documented in this encounter [facility]* Diagnosis Establishing care with new doctor, [...] Other abnormal glucose [facility]* Diagnosis Establishing care with new doctor, [...] Primary Urticaria, unspecified documented in this encounter [facility]* Diagnosis Establishing care with new doctor, [...] pain Otalgia, unspecified [facility] encounter [facility]* Diagnosis Establishing care with new [...] health care facility [facility] Diagnosis Establishing care with new doctor, [...] inoculation against influenza documented in [facility] encounter [facility]* Diagnosis Establishing care with new [...] Other abnormal glucose [facility] this encounter [facility]* Diagnosis Establishing care with new doctor, [...] Essential hypertension, benign documented in this encounter [facility]* Diagnosis Establishing care with new [...] Essential hypertension, benign documented in this encounter [facility]* Diagnosis Establishing care with new [...] Hypothyroidism, unspecified type documented in this encounter [facility] note* Diagnosis Establishing care with new [...] of right thumb [facility] encounter [facility] noteNo assessment information availableWKettering Health [facility] Work Phone: Evaluation note* Diagnosis Establishing care [...] and colitis Dehydration documented in this encounter [facility] note* Diagnosis Establishing care with new [...] Ulcerative (chronic) proctitis documented in this encounter [facility] note* Diagnosis Establishing care with new [...] of right thumb documented in this encounter [facility]* Diagnosis Establishing care with new [...] deficiency anemia, unspecified [facility] encounter [facility]* Diagnosis Establishing care with new [...] Neck pain Cervicalgia [facility] Dis[facility] instructionsAdditional Instructions The CAT scan shows you have inflammation of your lower colon and rectum. This needs treated with an antibiotic since you have a high white blood cell count. Follow-up with your primary care doctor, or if any symptoms worsen like if you develop a fever, vomiting, abdominal pain, or worsening diarrhea please be seen again immediately.[facility] Work Phone: Reason for referral (narrative)No reason for referral information availableWKettering Health [facility] Work Phone: Rewgsl for visit Narrative* Diagnostic Procedure Only (Routine) - Closed Specialty Diagnoses / Procedures Referred By Dionte emmanuel Referred To Contact XR IMAGING Diagnoses Neck pain Procedures XR CERV OTHER 4V AP/LAT/OBL RADEX SPINE CERVICAL 4 OR 5 VIEWS Russ Barone MD [address] [place] [address] Phone: tel: fax: [place] [id number] Referral ID Status Reason Start Date Expiration Date V isits Requested Visits Authorized [id number] Closed Auto-Generate d Referral 03/21/2025 04/20/2026 1 1 [facility] Advance Directives No Advanced Directives Records FoundDocuments on File Type Date Recorded Patient Production Expediter Expl anation Advance Directive(s) 08/07/2011 12:00 AM Advance Directive(s) 08/21/2006 12:00 AM Documents on File Type Date Recorded Patient Production Expediter Expl anation Advance Directive(s) 08/07/2011 Advance Directive(s) 08/21/2006 Advance Directive Response Recorded Date/ Time Do you have a Healthcare Power of Crop Picker? Yes February 10, 2025 6:37pm Advance Directive Response Recorded Date/ Time Do you have a Healthcare Power of Crop Picker? Yes February 10, 2025 6:37pm Do you have a Healthcare Power of Crop Picker? 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 Patient Production Expediter Expl anation Advance Directive(s) 08/07/2011 Advance Directive(s) [...] or prosecute any alcohol or drug abuse patient.[facility] HospitalIn the event this information is protected by the Federal Confidentiality of Alcohol and Drug Abuse Patient Records regulations: The Federal rules restrict any use of the information to criminally investigate or prosecute any alcohol or drug abuse patient.[facility] HospitalIn the event this information is protected by the Federal Confidentiality of Alcohol and Drug Abuse Patient Records regulations: The Federal rules restrict any use of the information to criminally investigate or prosecute any alcohol or drug abuse patient.[facility] HospitalIn the event this information is protected by the Federal Confidentiality of Alcohol and Drug Abuse Patient Records regulations: The Federal rules restrict any use of the information to criminally investigate or prosecute any alcohol or drug abuse patient.[facility] HospitalIn the event this information is protected by the Federal Confidentiality of Alcohol and Drug Abuse Patient Records regulations: The Federal rules restrict any use of the information to criminally investigate or prosecute any alcohol or drug abuse patient.[facility] HospitalIn the event this information is protected by the Federal Confidentiality of Alcohol and Drug Abuse Patient Records regulations: The Federal rules restrict any use of the information to criminally investigate or prosecute any alcohol or drug abuse patient.[facility] HospitalIn the event this information is protected by the Federal Confidentiality of Alcohol and Drug Abuse Patient Records regulations: The Federal rules restrict any use of the information to criminally investigate or prosecute any alcohol or drug abuse patient.[facility] HospitalIn the event this information is protected by the Federal Confidentiality of Alcohol and Drug Abuse Patient Records regulations: The Federal rules restrict any use of the information to criminally investigate or prosecute any alcohol or drug abuse patient.[facility] HospitalIn the event this information is protected by the Federal Confidentiality of Alcohol and Drug Abuse Patient Records regulations: The Federal rules restrict any use of the information to criminally investigate or prosecute any alcohol or drug abuse patient.[facility] HospitalIn the event this information is protected by the Federal Confidentiality of Alcohol and Drug Abuse Patient Records regulations: The Federal rules restrict any use of the information to criminally investigate or prosecute any alcohol or drug abuse patient.[facility] HospitalIn the event this information is protected by the Federal Confidentiality of Alcohol and Drug Abuse Patient Records regulations: The Federal rules restrict any use of the information to criminally investigate or prosecute any alcohol or drug abuse patient.[facility] HospitalIn the event this information is protected by the Federal Confidentiality of Alcohol and Drug Abuse Patient Records regulations: The Federal rules restrict any use of the information to criminally investigate or prosecute any alcohol or drug abuse patient.[facility] HospitalIn the event this information is protected by the Federal Confidentiality of Alcohol and Drug Abuse Patient Records regulations: The Federal rules restrict any use of the information to criminally investigate or prosecute any alcohol or drug abuse patient.[facility] HospitalIn the event this information is protected by the Federal Confidentiality of Alcohol and Drug Abuse Patient Records regulations: The Federal rules restrict any use of the information to criminally investigate or prosecute any alcohol or drug abuse patient.[facility] HospitalIn the event this information is protected by the Federal Confidentiality of Alcohol and Drug Abuse Patient Records regulations: The Federal rules restrict any use of the information to criminally investigate or prosecute any alcohol or drug abuse patient.[facility] HospitalIn the event this information is protected by the Federal Confidentiality of Alcohol and Drug Abuse Patient Records regulations: The Federal rules restrict any use of the information to criminally investigate or prosecute any alcohol or drug abuse patient.[facility] HospitalIn the event this information is protected by the Federal Confidentiality of Alcohol and Drug Abuse Patient Records regulations: The Federal rules restrict any use of the information to criminally investigate or prosecute any alcohol or drug abuse patient.[facility] HospitalIn the event this information is protected by the Federal Confidentiality of Alcohol and Drug Abuse Patient Records regulations: The Federal rules restrict any use of the information to criminally investigate or prosecute any alcohol or drug abuse patient.[facility] HospitalIn the event this information is protected by the Federal Confidentiality of Alcohol and Drug Abuse Patient Records regulations: The Federal rules restrict any use of the information to criminally investigate or prosecute any alcohol or drug abuse patient.[facility] HospitalIn the event this information is protected by the Federal Confidentiality of Alcohol and Drug Abuse Patient Records regulations: The Federal rules restrict any use of the information to criminally investigate or prosecute any alcohol or drug abuse patient.[facility] HospitalIn the event this information is protected by the Federal Confidentiality of Alcohol and Drug Abuse Patient Records regulations: The Federal rules restrict any use of the information to criminally investigate or prosecute any alcohol or drug abuse patient.[facility] HospitalIn the event this information is protected by the Federal Confidentiality of Alcohol and Drug Abuse Patient Records regulations: The Federal rules restrict any use of the information to criminally investigate or prosecute any alcohol or drug abuse patient.[facility] HospitalIn the event this information is protected by the Federal Confidentiality of Alcohol and Drug Abuse Patient Records regulations: The Federal rules restrict any use of the information to criminally investigate or prosecute any alcohol or drug abuse patient.[facility] HospitalIn the event this information is protected by the Federal Confidentiality of Alcohol and Drug Abuse Patient Records regulations: The Federal rules restrict any use of the information to criminally investigate or prosecute any alcohol or drug abuse patient.[facility] HospitalIn the event this information is protected by the Federal Confidentiality of Alcohol and Drug Abuse Patient Records regulations: The Federal rules restrict any use of the information to criminally investigate or prosecute any alcohol or drug abuse patient.[facility] HospitalIn the event this information is protected by the Federal Confidentiality of Alcohol and Drug Abuse Patient Records regulations: The Federal rules restrict any use of the information to criminally investigate or prosecute any alcohol or drug abuse patient.[facility] HospitalIn the event this information is protected by the Federal Confidentiality of Alcohol and Drug Abuse Patient Records regulations: The Federal rules restrict any use of the information to criminally investigate or prosecute any alcohol or drug abuse patient.[facility] HospitalIn the event this information is protected by the Federal Confidentiality of Alcohol and Drug Abuse Patient Records regulations: The Federal rules restrict any use of the information to criminally investigate or prosecute any alcohol or drug abuse patient.[facility] HospitalIn the event this information is protected by the Federal Confidentiality of Alcohol and Drug Abuse Patient Records regulations: The Federal rules restrict any use of the information to criminally investigate or prosecute any alcohol or drug abuse patient.[facility] HospitalIn the event this information is protected by the Federal Confidentiality of Alcohol and Drug Abuse Patient Records regulations: The Federal rules restrict any use of the information to criminally investigate or prosecute any alcohol or drug abuse patient.[facility] HospitalIn the event this information is protected by the Federal Confidentiality of Alcohol and Drug Abuse Patient Records regulations: The Federal rules restrict any use of the information to criminally investigate or prosecute any alcohol or drug abuse patient.[facility] HospitalIn the event this information is protected by the Federal Confidentiality of Alcohol and Drug Abuse Patient Records regulations: The Federal rules restrict any use of the information to criminally investigate or prosecute any alcohol or drug abuse patient.[facility] HospitalIn the event this information is protected by the Federal Confidentiality of Alcohol and Drug Abuse Patient Records regulations: The Federal rules restrict any use of the information to criminally investigate or prosecute any alcohol or drug abuse patient.[facility] HospitalIn the event this information is protected by the Federal Confidentiality of Alcohol and Drug Abuse Patient Records regulations: The Federal rules restrict any use of the information to criminally investigate or prosecute any alcohol or drug abuse patient.[facility] Reason for Visit (unrecogniz ed section [...] Care Teams (unrecognized sec tion and content) [employer] Relationship Specialty Start Date End Date Russ Barone MD [address], [place] [id number] PCP - General Internal Medicine 11/01/14 [employer] Relationship Specialty Start Date End Date Russ Barone MD [address], [place] [id number] PCP - General Internal Medicine 11/01/14 [employer] Relationship Specialty Start Date End Date Russ Barone MD [address] [place] [address] PCP - General Internal Medicine 11/01/14 [employer] Relationship Specialty Start Date End Date Russ Barone MD [address] [facility] [place] [address] PCP - General Internal Medicine 11/01/14 [employer] Relationship Specialty Start Date End Date Russ Barone MD [address] [facility] [place] [address] PCP - General Internal Medicine 11/01/14 [employer] Relationship Specialty Start Date End Date Russ Barone MD [address] [facility] [place] [address] PCP - General Internal Medicine 11/01/14 [employer] Relationship Specialty Start Date End Date Russ Barone MD [address] [facility] [place] [address] PCP - General Internal Medicine 11/01/14 [employer] Relationship Specialty Start Date End Date Russ Barone MD [address] [facility] [place] [address] PCP - General Internal Medicine 11/01/14 [employer] Relationship Specialty Start Date End Date Russ Barone MD [address] [facility] [place] [address] PCP - General Internal Medicine 11/01/14 [employer] Relationship Specialty Start Date End Date Russ Barone MD [address] [facility] [place] [address] PCP - General Internal Medicine 11/01/14 [employer] Relationship Specialty Start Date End Date Russ Barone MD [address] [place] [address] PCP - General Internal Medicine 11/01/14 [employer] Relationship Specialty Start Date End Date Russ Barone MD [address] [place] [address] PCP - General Internal Medicine 11/01/14 [employer] Relationship Specialty Start Date End Date Russ Barone MD [address] [place] [address] PCP - General Internal Medicine 11/01/14 [employer] Relationship Specialty Start Date End Date Russ Barone MD [address] [place] [address] PCP - General Internal Medicine 11/01/14 [employer] Relationship Specialty Start Date End Date Russ Barone MD [address] [place] [address] PCP - General Internal Medicine 11/01/14 [employer] Relationship Specialty Start Date End Date Russ Barone MD [address] [place] [address] PCP - General Internal Medicine 11/01/14 [employer] Relationship Specialty Start Date End Date Russ Barone MD [address] [place] [address] PCP - General Internal Medicine 11/01/14 [employer] Relationship Specialty Start Date End Date Russ Barone MD [address] [place] [address] PCP - General Internal Medicine 11/01/14 Alea Dorantes PA-C [address] [place] [address] Teaching Artist Family [facility] 06/13/24 Martha Funk APRN.CERTIFIED MEDICAL AIDE [address] [place] [address] Teaching Artist Internal Medicine 06/13/24 Pamela Self PA-C [address] [place] [address] Teaching Artist Family [facility] 06/13/24 [employer] Relationship Specialty Start Date End Date Russ Barone MD [address] [place] [address] PCP - General Internal Medicine 11/01/14 Alea Dorantes PA-C [address] [place] [address] Teaching Artist Family Medicine 06/13/24 Martha Funk APRN.CERTIFIED MEDICAL AIDE [address] [place] [address] Teaching Artist Internal Medicine 06/13/24 Pamela Self PA-C [address] [place] [address] Teaching Artist Family [facility] 06/13/24 [employer] Relationship Specialty Start Date End Date Russ Barone MD [address] [place] [address] PCP - General Internal Medicine 11/01/14 Alea Dorantes PA-C [address] [place] [address] Teaching Artist Family Medicine 06/13/24 Marhta Funk APRN.CERTIFIED MEDICAL AIDE [address] [place] [address] Teaching Artist Internal Medicine 06/13/24 Pamela Self PA-C [address] [place] [address] Teaching Artist Family Medicine 06/13/24 [employer] Relationship Specialty Start Date End Date Russ Barone MD [address] [place] [address] PCP - General Internal Medicine 11/01/14 Martha Funk APRN.CERTIFIED MEDICAL AIDE [address] [place] [address] Teaching Artist Internal Medicine 06/13/24 [employer] Relationship Specialty Start Date End Date Russ Barone MD [address] [place] [address] PCP - General Internal Medicine 11/01/14 Alea Dorantes PA-C [address] [place] [address] Teaching Artist Family Medicine 06/13/24 09/26/24 Martha Funk APRN.CERTIFIED MEDICAL AIDE [address] [place] [address] Teaching Artist Internal Medicine 06/13/24 Pamela Self PA-C [address] [place] [address] [facility] Family Medicine 06/13/24 09/26/24 Team Status: [...] February 14, 2025 End: February 14, 2025 [employer] Relationship Specialty Start Date End Date Russ Barone MD [address] [place] [address] PCP - General Internal Medicine 11/01/14 Martha Funk APRN.CERTIFIED MEDICAL AIDE [address] [place] [address] [facility] Internal Medicine 06/13/24 [employer] Relationship Specialty Start Date End Date Russ Barone MD [address] [place] [address] PCP - General Internal Medicine 11/01/14 Martha Funk, [employer]UM [employer]INUOUS PROCESS.CERTIFIED MEDICAL AIDE [address] [place] [address] [facility] Internal Medicine 06/13/24 [employer] Relationship Specialty Start Date End Date Russ Barone MD [address] [place] [address] PCP - General Internal Medicine 11/01/14 Martha Funk, [employer]UM CONTINUOUS PROCESS.CERTIFIED MEDICAL AIDE [address] [place], [place] [address] Teaching Artist Internal Medicine 06/13/24 [employer] Architect Relationship Specialty Start Date End Date Russ Barone MD [address], [place] [address] PCP - General Internal Medicine 11/01/14 Martha Funk, [employer] DRUM CONTINUOUS PROCESS.CERTIFIED MEDICAL AIDE [address] [place], [place] [address] Teaching Artist Internal Medicine 06/13/24 [employer] Relationship Specialty Start Date End Date Russ Barone MD [address], [place] [address] PCP - General Internal Medicine 11/01/14 Martha Funk, [employer]UM CONTINUOUS PROCESS.CERTIFIED MEDICAL AIDE [address] [place], [place] [address] Teaching Artist Internal Medicine 06/13/24 [employer] Relationship Specialty Start Date End Date Russ Barone MD [address] [place], [place] [address] PCP - General Internal Medicine 11/01/14 Martha Funk, [employer]UM CONTINUOUS PROCESS.CERTIFIED MEDICAL AIDE [address] [place] [address] Teaching Artist Internal Medicine 06/13/24 Goals (unrecognized section and content) Goals may be documented in a n alternate sectionGoals may be documented in an alternate section INFORMATION SOURCE (unrecogn ized section and content) DATE CREATED AUTHOR 02/20/2025 [facility] DATE CREATED AUTHOR 'S PB PASCAL 03/23/2025 [facility] FOR RECORDS PERTAINING TO PATIENTS WHO [...] BE BASED ON THE PRIMARY CLINICAL RECORDS. [facility]. provides no warranty or guarantee of the accuracy or completeness of information in this document.
[2025-03-25 01:16] LABS: Magnesium 2.9 mg/dL (1.5-2.2)
[2025-03-25] MEDS: 0.9% Normal Saline (1000mL) 1,000 ML 100 ML IV (01:45)
[2025-03-25] MEDS: Pantoprazole Sodium 40 MG in 0.9% Normal Saline (100mL MB+) 100 ML 330 MG IV ×3 (01:45→21:52)
[2025-03-25 05:57] LABS: Hematocrit 33.5 % (37-47); Hemoglobin 10.6 g/dL (12.0-15.0); Immature Granulocytes Count 0.210 X10^3/uL (0.0-0.0); Mean Corp Hgb Conc 31.6 g/dL (32-36); Mean Corpuscular Volume 100.6 fL (81-99); Mean Platelet Vol. 8.1 fl (6.2-12.0); NRBC Flagged by Analyzer 0 % (0-5); POSITIVE COUNT YES; POSITIVE DIFFERENTIAL YES; Platelet Count 540 K/mm3 (150-450); RBC Distribution Width CV 14.1 % (11.6-14.6); RBC Distribution Width SD 51.0 fl (35.1-43.9); Red Blood Count 3.33 M/mm3 (4.2-5.4)
[2025-03-25 06:12] LABS: Differential Indicated SCAN CRITERIA MET; White Blood Count 32.2 K/mm3 (4.4-11.0)
[2025-03-25 06:35] LABS: AST(SGOT) 20 U/L (<=31); Alanine Aminotransfer ALT/SGPT 5 U/L (<=34); Albumin, Serum 2.3 g/dL (3.4-4.8); Alkaline Phosphatase 108 U/L (35-104); Anion Gap 13 (5-15); BUN 26 mg/dL (4-19); BUN/Creat Ratio 30.4 RATIO (10-20); Calcium,Total 8.3 mg/dL (7.6-11.0); Carbon Dioxide 19.4 mmol/L (21.0-32.0); Chloride 107 mmol/L (98-108); Estimated Creatinine Clearance 32.76 ml/min (50-250); Globulin 3.0 g/dL (2.2-4.2); Glucose 130 mg/dL (70-99); Potassium 4.2 mmol/L (3.3-5.1)
[2025-03-25 07:29] LABS: Differential Comment SCANNED
--- NOTE | 2025-03-25 07:39 | PN.HOSP_ITS ---
Reason for Visit Chief Complaint: N/V, constipation, abdominal pain. Objective Data Objective Data Vital Signs: Vital Signs Temp Pulse Resp BP Pulse Ox O2 Del Method 98.1 F 77 16 124/48 H 93 Room Air 03/25/25 06:06 03/25/25 06:06 03/25/25 06:06 03/25/25 06:06 03/25/25 06:06 03/25/25 06:06 Oxygen Delivery Method Room Air Weight: 97 lb 7.109 oz Body Mass Index (BMI) 19.0 Intake & Output: Intake and Output for Last 24 Hours 03/23/25 03/24/25 03/25/25 23:59 23:59 23:59 Intake Total 1100 / 1100 1100 / 1100 Balance 1100 / 1100 1100 / 1100 Lab / Micro Data 03/25/25 04:59 03/25/25 04:59 Labs: Laboratory Results - last 24 hr 03/24/25 20:00: WBC 38.0 H*, RBC 4.39, Hgb 13.9, Hct 43.9, MCV 100.0 H, MCH 31.7, MCHC 31.7 L, RDW Std Deviation 50.6 H, RDW Coeff of Anay 13.7, Plt Count 734 H, MPV 7.9, Immature Gran % (Auto) 0.900, Neut % (Auto) 92.1 H, Lymph % (Auto) 3.1 L, [place] % (Auto) 3.8, Eos % (Auto) 0.0, Baso % (Auto) 0.1, Absolute Neuts (auto) 35.0 H, Absolute Lymphs (auto) 1.16, Nucleated RBC % 0, Differential Comment SCANNED, Diff Path Review May foll, Platelet Estimate [employer], Sodium 141, Potassium 4.8, Chloride 102, Carbon Dioxide 23.2, Anion Gap 15, BUN 25 H, Creatinine 0.95, Estim Creat Clear Calc 29.79 L, Est GFR (MDRD) Non-Af 58 L, BUN/Creatinine Ratio 25.8 H, Glucose 171 H, Calcium 10.4, Phosphorus 5.5 H , Magnesium 2.9 H, Total Bilirubin 0.75, AST 35 H, ALT < 5, Alkaline Phosphatase 138 H, Total Protein 7.0, Albumin 2.8 L, Globulin 4.1, Albumin/Globulin Ratio 0.7 L 03/24/25 21:05: Lactic Acid 3.4 H* 03/25/25 01:08: Lactic Acid 1.8 03/25/25 04:59: WBC 32.2 H*, RBC 3.33 L, Hgb 10.6 L, Hct 33.5 L, MCV 100.6 H, MCH 31.8, MCHC 31.6 L, RDW Std Deviation 51.0 H, RDW Coeff of Anay 14.1, Plt Count 540 H, MPV 8.1, Immature Gran % (Auto) 0.700, Neut % (Auto) 90.0 H, Lymph % (Auto) 5.2 L, [place] % (Auto) 3.8, Eos % (Auto) 0.0, Baso % (Auto) 0.3, Absolute Neuts (auto) 29.0 H, Absolute Lymphs (auto) 1.66, Nucleated RBC % 0, Differential Comment SCANNED, Platelet Estimate [employer] INC, Sodium 139, Potassium 4.2, Chloride 107, Carbon Dioxide 19.4 L, Anion Gap 13, BUN 26 H, Creatinine 0.86, Estim Creat Clear Calc 32.76 L, Est GFR (MDRD) Non-Af 66, BUN/Creatinine Ratio 30.4 H, Glucose 130 H, Calcium 8.3, Total Bilirubin 0.49, AST 20, ALT 5, A lkaline Phosphatase 108 H, Total Protein 5.3 L, Albumin 2.3 L, Globulin 3.0, A lbumin/Globulin Ratio 0.8 L Radiography Diagnostic Testing: Radiology Impression Abdomen/Pelvis CT 03/24/25 19:29 IMPRESSION: 1. Nonspecific mild intra and extrahepatic biliary ductal dilatation, similar to prior. 2. Constipation with segmental colitis involving the distal rectosigmoid colon, which is now progressed proximally to involve the transverse and descending colonic segments. 3. Nonspecific small volume abdominopelvic ascites, likely related to the colitis. Reading Location: [facility] Assessment & Plan Assessment/Plan (1) Nausea & vomiting: PLAN: Plan The patient is an 84 y/o F with nausea and vomiting with significant persistent constipation with recent ED presentation on 02/[address] abdomen with IV contrast showed diffusely thickened rectosigmoid colon with adjacent inflammatory changes suggestive of proctocolitis were discharged after IV fluid replacement and electrolyte correction #1. SIRS (NO END ORGAN DAMAGE aside lactic acidosis to be labeled as sepsis as noted in ED note, patient with leukocytosis, lactic acidosis, transient hypotension that responded well to IVFs) secondary to Acute colitis involving the distal rectosigmoid colon, transverse and descending colonic segments with associated nonspecific small volume abdominopelvic ascites with questionable failure of recent abx therapies (questionable infectious, inflammatory): Will admit to PCU, maintain on aggressive hydration, monitor I&Os, allow clears however low threshold to transition to n.p.o. status if intractable nausea or emesis despite as needed agents, treat with continued IV meropenem regimen given allergies/intolerances and recent questionable failure of outpatient outpatient abx therapy, will maintain on IV PPI, anti-emetics, pain regimen PRN. Will con request gastroenterology consultation given severity of constipation and appearance of colitis as patient was supposed to follow-up outpatient with gastroenterology but has yet to have her visit. #2. Chronic thrombocytosis: Unclear exact etiology: Admission platelets 734, similar to previous baseline noted 02/14/2025 platelets 71 and prior to this on 02/10/2025 platelets 542, continue to trend CBC. #3. Chronic Kidney Disease Stage III, unclear subtype per GFR trend: Admission BUN/Cr 25/0.95, GFR 58, baseline renal function primarily 0.7-1.2 although 1.0- 1.2 were primarily likely during presentation with dehydration thus could be lower baseline, repeat BMP in AM. #4. Hypertension: Given low-normal BP and intractable nausea and emesis will attempt to continue atenolol but hold diuretics and losartan, will have as needed IV hydralazine in the interim. #5. Hyperlipidemia: Given intractable nausea and emesis will hold oral statin regimen, add back once clinically appropriate. #6. Hypothyroidism: Will continue patient on levothyroxine regimen if able to tolerate. #7. Severe protein calorie malnutrition: Evidenced by recent significant weight loss, inability to appropriately have oral intake, reduce BMI, nutrition consulted for recommendations. #8. DVT prophylaxis: Lovenox. #9. CODE status: Patient DELMY is her son who is present and living will is currently in place. Discussed CODE status at length including difference between FULL code, DNR-CCA and DNR-CC status. Following discussions about the differences in these status, requested Full Code status. Laboratory Results 03/24/25 20:00: WBC 38.0 H*, RBC 4.39, Hgb 13.9, Hct 43.9, MCV 100.0 H, MCH 31.7, MCHC 31.7 L, RDW Std Deviation 50.6 H, RDW Coeff of Anay 13.7, Plt Count 734 H, MPV 7.9, Immature Gran % (Auto) 0.900, Neut % (Auto) 92.1 H, Lymph % (Auto) 3.1 L, [place] % (Auto) 3.8, Eos % (Auto) 0.0, Baso % (Auto) 0.1, Absolute Neuts (auto) 35.0 H, Absolute Lymphs (auto) 1.16, Nucleated RBC % 0, Differential Comment SCANNED, Diff Path Review November, Platelet Estimate [employer], Sodium 141, Potassium 4.8, Chloride 102, Carbon Dioxide 23.2, Anion Gap 15, BUN 25 H, Creatinine 0.95, Estim Creat Clear Calc 29.79 L, Est GFR (MDRD) Non-Af 58 L, BUN/Creatinine Ratio 25.8 H, Glucose 171 H, Calcium 10.4, Phosphorus 5.5 H , Magnesium 2.9 H, Total Bilirubin 0.75, AST 35 H, ALT < 5, Alkaline Phosphatase 138 H, Total Protein 7.0, Albumin 2.8 L, Globulin 4.1, Albumin/Globulin Ratio 0.7 L 03/24/25 21:05: Lactic Acid 3.4 H* 03/25/25 01:08: Lactic Acid 1.8 03/25/25 04:59: WBC 32.2 H*, RBC 3.33 L, Hgb 10.6 L, Hct 33.5 L, MCV 100.6 H, MCH 31.8, MCHC 31.6 L, RDW Std Deviation 51.0 H, RDW Coeff of Anay 14.1, Plt Count 540 H, MPV 8.1, Immature Gran % (Auto) 0.700, Neut % (Auto) 90.0 H, Lymph % (Auto) 5.2 L, [place] % (Auto) 3.8, Eos % (Auto) 0.0, Baso % (Auto) 0.3, Absolute Neuts (auto) 29.0 H, Absolute Lymphs (auto) 1.66, Nucleated RBC % 0, Differential Comment SCANNED, Platelet Estimate [employer], Sodium 139, Potassium 4.2, Chloride 107, Carbon Dioxide 19.4 L, Anion Gap 13, BUN 26 H, Creatinine 0.86, Estim Creat Clear Calc 32.76 L, Est GFR (MDRD) Non-Af 66, BUN/Creatinine Ratio 30.4 H, Glucose 130 H, Calcium 8.3, Total Bilirubin 0.49, AST 20, ALT 5, A lkaline Phosphatase 108 H, Total Protein 5.3 L, Albumin 2.3 L, Globulin 3.0, A lbumin/Globulin Ratio 0.8 L Clinical Impression(s) from Imaging Studies Abdomen/Pelvis CT 03/24/25 19:29
--- NOTE | 2025-03-25 07:39 | PCM.PN.HOSP ---
Reason for Visit Chief Complaint: N/V, constipation, abdominal pain. Objective Data Objective Data Vital Signs: Vital Signs Temp Pulse Resp BP Pulse Ox O2 Del Method 98.1 F 77 16 124/48 H 93 Room Air 03/25/25 06:06 03/25/25 06:06 03/25/25 06:06 03/25/25 06:06 03/25/25 06:06 03/25/25 06:06 Oxygen Delivery Method Room Air Weight: 97 lb 7.109 oz Body Mass Index (BMI) 19.0 Intake & Output: Intake and Output for Last 24 Hours 03/23/25 03/24/25 03/25/25 23:59 23:59 23:59 Intake Total 1100 / 1100 1100 / 1100 Balance 1100 / 1100 1100 / 1100 Lab / Micro Data 03/25/25 04:59 03/25/25 04:59 Labs: Laboratory Results - last 24 hr 03/24/25 20:00: WBC 38.0 H*, RBC 4.39, Hgb 13.9, Hct 43.9, MCV 100.0 H, MCH 31.7, MCHC 31.7 L, RDW Std Deviation 50.6 H, RDW Coeff of Anay 13.7, Plt Count 734 H, MPV 7.9, Immature Gran % (Auto) 0.900, Neut % (Auto) 92.1 H, Lymph % (Auto) 3.1 L, [place] % (Auto) 3.8, Eos % (Auto) 0.0, Baso % (Auto) 0.1, Absolute Neuts (auto) 35.0 H, Absolute Lymphs (auto) 1.16, Nucleated RBC % 0, Differential Comment SCANNED, Diff Path Review May foll, Platelet Estimate [employer], Sodium 141, Potassium 4.8, Chloride 102, Carbon Dioxide 23.2, Anion Gap 15, BUN 25 H, Creatinine 0.95, Estim Creat Clear Calc 29.79 L, Est GFR (MDRD) Non-Af 58 L, BUN/Creatinine Ratio 25.8 H, Glucose 171 H, Calcium 10.4, Phosphorus 5.5 H, Magnesium 2.9 H, Total Bilirubin 0.75, AST 35 H, ALT < 5, Alkaline Phosphatase 138 H, Total Protein 7.0, Albumin 2.8 L, Globulin 4.1, Albumin/Globulin Ratio 0.7 L 03/24/25 21:05: Lactic Acid 3.4 H* 03/25/25 01:08: Lactic Acid 1.8 03/25/25 04:59: WBC 32.2 H*, RBC 3.33 L, Hgb 10.6 L, Hct 33.5 L, MCV 100.6 H, MCH 31.8, MCHC 31.6 L, RDW Std Deviation 51.0 H, RDW Coeff of Anay 14.1, Plt Count 540 H, MPV 8.1, Immature Gran % (Auto) 0.700, Neut % (Auto) 90.0 H, Lymph % (Auto) 5.2 L, [place] % (Auto) 3.8, Eos % (Auto) 0.0, Baso % (Auto) 0.3, Absolute Neuts (auto) 29.0 H, Absolute Lymphs (auto) 1.66, Nucleated RBC % 0, Differential Comment SCANNED, Platelet Estimate [employer], Sodium 139, Potassium 4.2, Chloride 107, Carbon Dioxide 19.4 L, Anion Gap 13, BUN 26 H, Creatinine 0.86, Estim Creat Clear Calc 32.76 L, Est GFR (MDRD) Non-Af 66, BUN/Creatinine Ratio 30.4 H, Glucose 130 H, Calcium 8.3, Total Bilirubin 0.49, AST 20, ALT 5, Alkaline Phosphatase 108 H, Total Protein 5.3 L, Albumin 2.3 L, Globulin 3.0, Albumin/Globulin Ratio 0.8 L Radiography Diagnostic Testing: Radiology Impression Abdomen/Pelvis CT 03/24/25 19:29 IMPRESSION: 1. Nonspecific mild intra and extrahepatic biliary ductal dilatation, similar to prior. 2. Constipation with segmental colitis involving the distal rectosigmoid colon, which is now progressed proximally to involve the transverse and descending colonic segments. 3. Nonspecific small volume abdominopelvic ascites, likely related to the colitis. Reading Location: [facility] Physical Exam Narrative Seen and examined. She has symptoms of loose bowel movement, nausea and vomiting since February 10 intermittently. She has abdominal cramps that started yesterday mainly over the left lower quadrant. she said she lost about 20 pounds since February 2025 No fever or chills. Her tenderness in left lower quadrant is better her last bowel movement was more semisolid. Currently she is nausea free and did not had any vomiting since yesterday Physical exam General: Alert, Oriented x3, Cooperative HEENT: Atraumatic, PERRLA, EOMI, Normocephalic. Oral: No Gingival or Mucosal Lesions/ Ulcerations Neck: Supple, No JVD, Negative Carotid Bruits Chest wall/Lungs: Air entry diminished in bilateral lung bases. No crepitation/rhonchi Cardiovascular: Regular rate and rhythm, Normal S1,S2, Abdomen: Bowel Sounds hyperactive, present, soft, mildly tender over left lower and right lower quadrant. No palpable mass. Soft systolic murmur : No dysuria. No renal angle tenderness. No suprapubic tenderness. Extremities: No edema, Capillary Refill Less than 3 Seconds Skin: No rashes, No breakdown Musculoskeletal: No Tenderness to Palpation of Joints or Extremities Neurological: Cranial nerves II-XII grossly intact, DTR 2+/4. No acute focal neurological deficit. Psych/Mental Status: Normal Affect, Appropriate. Assessment & Plan Assessment/Plan (1) Nausea & vomiting: PLAN: Plan The patient is an 84 y/o F with nausea and vomiting with significant persistent constipation with recent ED presentation on 02/[address] abdomen with IV contrast showed diffusely thickened rectosigmoid colon with adjacent inflammatory changes suggestive of proctocolitis were discharged after IV fluid replacement and electrolyte correction #1. SIRS with sepsis due to Acute distal rectosigmoid colitis: Patient had tachypnea, leukocytosis and lactic acidosis. In H&P also mention transient hypotension that resolved with IV fluid. Lactic acidosis might be due to decreased perfusion/colitis: Patient is being admitted in PCU. IV fluid rehydration. Patient had 30 mL/kg body weight IV fluid resuscitation as per sepsis criteria. On IV antibiotics IV meropenem. GI consulted. Patient had colonoscopy 10 years ago and was normal. Never had EGD Symptomatic management. CT abdomen shows progression of segmental colitis from rectosigmoid, sigmoid region to involve descending and transverse colon proximally. It also shows a stool impaction. Stool softener ordered #2. Chronic thrombocytosis: Unclear exact etiology: Admission platelets 734, similar to previous baseline noted 02/14/2025 platelets 71 and prior to this on 02/10/2025 platelets 542, continue to trend CBC. #3. Chronic Kidney Disease Stage II: Admission BUN/Cr 25/0.95, GFR 58, baseline renal function primarily 0.7-1.2 although 1.0-1.2 #4. Hypertension: Given low-normal BP and intractable nausea and emesis: Hold diuretic and HOLA/ARB admitted #5. Hyperlipidemia: Given intractable nausea and emesis will hold oral statin regimen, add back once clinically appropriate. #6. Hypothyroidism: continue patient on levothyroxine regimen if able to tolerate. #7. Severe protein calorie malnutrition: Evidenced by recent significant weight loss, inability to appropriately have oral intake, reduce BMI, nutrition consulted for recommendations. #8. DVT prophylaxis: Lovenox. #9. CODE status: Patient DELMY is her son who is present and living will is currently in place. Discussed CODE status at length including difference between FULL code, DNR-CCA and DNR-CC status. Following discussions about the differences in these status, requested Full Code status. Laboratory Results 03/24/25 20:00: WBC 38.0 H*, RBC 4.39, Hgb 13.9, Hct 43.9, MCV 100.0 H, MCH 31.7, MCHC 31.7 L, RDW Std Deviation 50.6 H, RDW Coeff of Anay 13.7, Plt Count 734 H, MPV 7.9, Immature Gran % (Auto) 0.900, Neut % (Auto) 92.1 H, Lymph % (Auto) 3.1 L, [place] % (Auto) 3.8, Eos % (Auto) 0.0, Baso % (Auto) 0.1, Absolute Neuts (auto) 35.0 H, Absolute Lymphs (auto) 1.16, Nucleated RBC % 0, Differential Comment SCANNED, Diff Path Review November foll, Platelet Estimate [employer], Sodium 141, Potassium 4.8, Chloride 102, Carbon Dioxide 23.2, Anion Gap 15, BUN 25 H, Creatinine 0.95, Estim Creat Clear Calc 29.79 L, Est GFR (MDRD) Non-Af 58 L, BUN/Creatinine Ratio 25.8 H, Glucose 171 H, Calcium 10.4, Phosphorus 5.5 H, Magnesium 2.9 H, Total Bilirubin 0.75, AST 35 H, ALT < 5, Alkaline Phosphatase 138 H, Total Protein 7.0, Albumin 2.8 L, Globulin 4.1, Albumin/Globulin Ratio 0.7 L 03/24/25 21:05: Lactic Acid 3.4 H* 03/25/25 01:08: Lactic Acid 1.8 03/25/25 04:59: WBC 32.2 H*, RBC 3.33 L, Hgb 10.6 L, Hct 33.5 L, MCV 100.6 H, MCH 31.8, MCHC 31.6 L, RDW Std Deviation 51.0 H, RDW Coeff of Anay 14.1, Plt Count 540 H, MPV 8.1, Immature Gran % (Auto) 0.700, Neut % (Auto) 90.0 H, Lymph % (Auto) 5.2 L, [place] % (Auto) 3.8, Eos % (Auto) 0.0, Baso % (Auto) 0.3, Absolute Neuts (auto) 29.0 H, Absolute Lymphs (auto) 1.66, Nucleated RBC % 0, Differential Comment SCANNED, Platelet Estimate [employer], Sodium 139, Potassium 4.2, Chloride 107, Carbon Dioxide 19.4 L, Anion Gap 13, BUN 26 H, Creatinine 0.86, Estim Creat Clear Calc 32.76 L, Est GFR (MDRD) Non-Af 66, BUN/Creatinine Ratio 30.4 H, Glucose 130 H, Calcium 8.3, Total Bilirubin 0.49, AST 20, ALT 5, Alkaline Phosphatase 108 H, Total Protein 5.3 L, Albumin 2.3 L, Globulin 3.0, Albumin/Globulin Ratio 0.8 L Clinical Impression(s) from Imaging Studies Abdomen/Pelvis CT 03/24/25 19:29 IMPRESSION: 1. Nonspecific mild intra and extrahepatic biliary ductal dilatation, similar to prior. 2. Constipation with segmental colitis involving the distal rectosigmoid colon, which is now progressed proximally to involve the transverse and descending colonic segments. 3. Nonspecific small volume abdominopelvic ascites, likely related to the colitis. Reading Location: [facility] Charges/Coding Visit Charges Inpatient E&M: 44108 Subs Hosp L2
[2025-03-25] MEDS: Ensure Clear 120 ML Liquid PO ×3 (08:45→18:46)
[2025-03-25] MEDS: Meropenem 1 GM in 0.9% Normal Saline (100mL MB+) 100 ML IV ×2 (10:24→22:40)
--- NOTE | 2025-03-25 11:10 | CASEMGMT ---
RN MARIA DE JESUS ASSESSMENT RN CM to room to meet with patient for initial transition planning/care coordination assessment. NOEMY PRETTY introduced self and role at [facility]. Pt voices understanding and consents to assessment at this time. Pt sitting up in chair in no distress at this time. Pt is A/O at this time and answers all questions appropriately. Care providers, pharmacy, and demographics verified/updated at this time. Strata: 1 PCP: Dr Kamara Specialists: none Preferred Pharmacy: [facility] Insurance: [employer] Prescription Benefit: Yes LNOK: Daughter, Elisa. Son, Jose. Pt also has another son. Living Arrangements: Lives alone in one-story condo w/2 steps to enter through one entrance or no steps to enter through the garage. Pt is independent w/ADL's, IADL's, and manages her own medications. Transportation: Pt states drives self and states no transportation concerns at this time. Daughter will take her home @ dc. DME: Denies using any DME and denies needs. HHC/SNF: No hx of either. No needs identified. Pt wishes to return home and states has no concerns with going home at time of discharge. She declines the need for OP therapy. CM to follow for any further discharge planning/needs. Pt voices no further concerns/needs at this time. Advised pt to ask for CM if any further questions/concerns/needs arise. Voices understanding. PLAN: Home Louis DALE RN, CM
--- NOTE | 2025-03-25 14:30 | CHAPLAIN ---
Type of Pastoral Visit _x__ Initial Visit ___ Follow-up Visit ___ On-call Visit ___ General Patient Visit ___ Spiritual Assessment ___ Family Conference ___ Bereavement ___ Rapid Response ___ Code Blue ___ Other (describe below) Pastoral Care Referral From _x__ Patient ___ Family ___ Nurse ___ Physician ___ Riding Coach ___ Marshmallow Runner ___ Other (describe below) Sacrament/Intervention _x__ Active listening ___ Anointing ___ Zoroastrianism ___ Bereavement ___ Communion ___ Margoth exploration ___ ___ Life review _x__ Prayer ___ Reconciliation ___ Sacrament of Sick _x__ Supportive presence ___ Wedding ___ Other (describe below) Pastoral Comments patient acknowledges that she is uncomfortable due to not 'ever being sick and not being in the hospital before'; pt says 'my daughter will be coming soon to be my support and I'll just rest until she gets here, but you can say a prayer for me'; pt continues to talk about the needs in the world for better oneness and kindness; prayers and presence given
--- NOTE | 2025-03-25 18:27 | CON.PCM.GI_ITS ---
HPI Consult Data Date of Consult: 03/25/25 HPI Narrative Reason for Consultation: Abnormal CT scan HPI Narrative: AMISH CAMPA, is a 84-year-old woman who presented to the ER on February 10 for diarrhea and was diagnosed with proctitis. She was treated with levofloxacin and metronidazole due to her antibiotic allergies. She presented back on February 14 for abdominal pain generalized weakness and thirst. Patient her diagnosis was prerenal azotemia, leukocytosis, . She was also diagnosed with elevated blood-pressure reading without hypertension and dehydration. She was discharged to home with antiemetic. She was still taking the metronidazole and levofloxacin. Patient presents today because of no bowel movement x 3 days and nausea vomiting several times a day. She admits to a 14 pound weight loss past month. She is scheduled to see me in April. She has no known history of cancer. 02/10/2025 -CT/Abdomen/Pelvis W IV Cont ONLY IMPRESSION: 1. Diffusely thickened rectosigmoid colon with adjacent inflammatory changes, query acute proctocolitis. 2. Mildly dilated bile ducts. No obstructing lesion seen. A biliary stricture at the level of the ampulla is possible. 03/24/2025 - CT/Abdomen/Pelvis WITH Contrast IMPRESSION: 1. Nonspecific mild intra and extrahepatic biliary ductal dilatation, similar to prior. 2. Constipation with segmental colitis involving the distal rectosigmoid colon, which is now progressed proximally to involve the transverse and descending colonic segments. 3. Nonspecific small volume abdominopelvic ascites, likely related to the colitis. [facility] Medical History Thrombocytosis Diverticulosis of colon Disorder of bone and cartilage Benign neoplasm of colon Osteoarthritis Hypertension Hypothyroidism High blood cholesterol Colitis Home Medications Medication Instructions Recorded Last Taken Type aspirin 81 mg tablet 81 mg PO DAILY Antiplatelet 02/14/25 03/24/25 History atenolol 50 mg tablet 50 mg PO DAILY High BP 02/1403/24/25 History hydrochlorothiazide 12.5 mg capsule 12.5 mg PO DAILY H igh BP 02/14/25 03/24/25 History levothyroxine 100 mcg tablet 100 mcg PO DAILY Thyroid 02/14/25 03/24/25 History replacement losartan 25 mg tablet 25 mg PO DAILY High bp 02/1403/24/25 History meloxicam 15 mg tablet 15 mg PO DAILY pain 02/14/25 03/24/25 History ondansetron 4 mg disintegrating 4 mg PO Q8H PRN PRN Na usea #10 tabs 02/14/25 03/24/25 Rx tablet simvastatin 10 mg tablet 10 mg PO QHS Cholesterol 05/3103/23/25 History cetirizine 10 mg capsule (All Day 10 mg PO QDAY PRN al lergies 03/21/25 03/24/25 History Allergy (cetirizine)) Allergy/AdvReac Type Severity Reaction Status Date / Time alendronate sodium (From Allergy Intermediate Other Verified 03/25/25 01:32 Fosamax) amoxicillin Allergy Intermediate Hives Verified 03/25/25 01:32 valacyclovir (From Valtrex) Allergy Intermediate Other Verified 03/25/25 01:32 levofloxacin AdvReac Abd Verified 03/25/25 01:32 cramps/diarrhea metronidazole (From Flagyl) AdvReac Abd Verified 03/25/25 01:32 cramps/diarrhea Family History (Updated 03/25/25 @ 00:[address] Anca Dailey MD) Mother TIA (transient ischemic attack) CHF (congestive heart failure) Heart disease Father Heart disease Surgical History History of tonsillectomy and adenoidectomy H/O laparoscopy H/O dilation and curettage Social History household members: none Smoking Status: Never smoker alcohol intake: never substance use type: does not use ROS ROS Narrative Admission Review of Systems: CONSTITUTIONAL: No fever, + chills, weight loss, weakness or fatigue. HEENT: Eyes: No visual loss, blurred vision, double vision or yellow sclerae. Ears, Nose, Throat: No hearing loss, sneezing, congestion, runny nose or sore throat. SKIN: No rash or itching, lesions, wounds. CARDIOVASCULAR: No chest pain, chest pressure or chest discomfort, palpitations, edema, orthopnea, syncopal events. RESPIRATORY: No shortness of breath, cough or sputum, wheezing, hemoptysis. GASTROINTESTINAL: + anorexia, nausea, vomiting, abdominal pain, constipation. No diarrhea, melena, BRBPR. GENITOURINARY: + Decreased urine output. No dysuria, frequency, urgency or retention. NEUROLOGICAL: No headache, dizziness, syncope, paralysis, ataxia, numbness or tingling in the extremities, focal weakness, change in bowel or bladder control, seizure. MUSCULOSKELETAL: + muscle, back pain, joint pain or stiffness. HEMATOLOGIC: No anemia, bleeding or bruising. LYMPHATICS: No enlarged nodes. No history of splenectomy. PSYCHIATRIC: No history of depression or anxiety. ENDOCRINOLOGIC: No reports of sweating, cold or heat intolerance. No polyuria or polydipsia. ALLERGIES: + History of allergic rhinitis, hives. Physical Exam Narrative Physical Examination: General: Awake, alert, oriented x 3 and cooperative, seated upright in the ED bed, fatigued and mildly uncomfortable appearing Skin: Normal color, normal turgor, no icterus, no cyanosis Except occasional staged ecchymoses, abrasion. HEENT: AT/NC, EOMI, PERRLA, dry MM, no carotid bruits or JVD noted. Lungs: Mildly diminished, > bases, no rales, ronchi or wheezing. Heart: Regular rate and rhythm; no gallop, rub audible. Abdomen: Soft, diffuse TTP, voluntary guarding, distended, absent bowel sounds, difficult to assess HSM given pain elicited with palpation given abdominal pain. Extremities: No cyanosis, clubbing, or edema. Neurological: Patient awake, alert, oriented as noted, cognitive function intact; pupils equally reactive to light and accommodation, cranial nerves grossly normal, moving all 4 extremities, no focal deficits, strength moderately to severely globally decreased secondary to acute presentation. Psychiatric: Affect appears fatigued, mildly uncomfortable, no acute evidence of depressive or anxiety feelings. Medical Records Data Medical Nutrition Assessment Dietitian: Malnutrition Criteria Met Start: 03/25/25 14:06 Freq: Status: Active Protocol: Document 03/25/25 14:06 SB (Rec: 03/25/25 14:06 SB [id number]) Nutrition Malnutrition Evidence of Yes Malnutrition Exists Malnutrition (severe Acute Illness/Injury ): Evidenced By Suboptimal Energy Intake (Severe),Weight Loss (Severe) Clinical Problem Acute Disease or Injury Related Malnutrition Etiology severe related to inadequate oral intake Signs/Symptoms as evidenced by PO meeting <50% of estimated nutrition needs x 1 month and 7% unintentional weight loss x 2 months. Status Active Problem Recommendation Dietitian Recommend advanced diet as tolerated to transitional Recommendations/ with goal of regular. Changes Continue 120ml ensure clear TID with medpass. Will monitor weight trends. Lab / Micro Data 03/25/25 04:59 03/25/25 04:59 Labs: Laboratory Results - last 24 hr 03/24/25 20:00: WBC 38.0 H*, RBC 4.39, Hgb 13.9, Hct 43.9, MCV 100.0 H, MCH 31.7, MCHC 31.7 L, RDW Std Deviation 50.6 H, RDW Coeff of Anay 13.7, Plt Count 734 H, MPV 7.9, Immature Gran % (Auto) 0.900, Neut % (Auto) 92.1 H, Lymph % (Auto) 3.1 L, Haywood % (Auto) 3.8, Eos % (Auto) 0.0, Baso % (Auto) 0.1, Absolute Neuts (auto) 35.0 H, Absolute Lymphs (auto) 1.16, Nucleated RBC % 0, Differential Comment SCANNED, Diff Path Review November foll, Platelet Estimate [employer] INC, Sodium 141, Potassium 4.8, Chloride 102, Carbon Dioxide 23.2, Anion Gap 15, BUN 25 H, Creatinine 0.95, Estim Creat Clear Calc 29.79 L, Est GFR (MDRD) Non-Af 58 L, BUN/Creatinine Ratio 25.8 H, Glucose 171 H, Calcium 10.4, Phosphorus 5.5 H , Magnesium 2.9 H, Total Bilirubin 0.75, AST 35 H, ALT < 5, Alkaline Phosphatase 138 H, Total Protein 7.0, Albumin 2.8 L, Globulin 4.1, Albumin/Globulin Ratio 0.7 L 03/24/25 21:05: Lactic Acid 3.4 H* 03/25/25 01:08: Lactic Acid 1.8 03/25/25 04:59: WBC 32.2 H*, RBC 3.33 L, Hgb 10.6 L, Hct 33.5 L, MCV 100.6 H, MCH 31.8, MCHC 31.6 L, RDW Std Deviation 51.0 H, RDW Coeff of Anay 14.1, Plt Count 540 H, MPV 8.1, Immature Gran % (Auto) 0.700, Neut % (Auto) 90.0 H, Lymph % (Auto) 5.2 L, Haywood % (Auto) 3.8, Eos % (Auto) 0.0, Baso % (Auto) 0.3, Absolute Neuts (auto) 29.0 H, Absolute Lymphs (auto) 1.66, Nucleated RBC % 0, Differential Comment SCANNED, Platelet Estimate MOD INC, Sodium 139, Potassium 4.2, Chloride 107, Carbon Dioxide 19.4 L, Anion Gap 13, BUN 26 H, Creatinine 0.86, Estim Creat Clear Calc 32.76 L, Est GFR (MDRD) Non-Af 66, BUN/Creatinine Ratio 30.4 H, Glucose 130 H, Calcium 8.3, Total Bilirubin 0.49, AST 20, ALT 5, A lkaline Phosphatase 108 H, Total Protein 5.3 L, Albumin 2.3 L, Globulin 3.0, A lbumin/Globulin Ratio 0.8 L Imaging Radiology Impression Abdomen/Pelvis CT 03/24/25 19:29 IMPRESSION: 1. Nonspecific mild intra and extrahepatic biliary ductal dilatation, similar to prior. 2. Constipation with segmental colitis involving the distal rectosigmoid colon, which is now progressed proximally to involve the transverse and descending colonic segments. 3. Nonspecific small volume abdominopelvic ascites, likely related to the colitis. Reading Location: [facility] Assessment & Plan Assessment/Plan (1) Nausea & vomiting: (2) Abdominal ascites: (3) Unintentional weight loss of 5% body weight or less within 1 month: (4) Acute dehydration: (5) Colitis: (6) Acidosis, lactic: (7) Acute hypotension: (8) Sepsis: PLAN: 84-year-old woman, the differential diagnosis for progressive, circumferential colonic wall thickening includes colorectal malignancy, ischemic colitis, infectious colitis (including C. difficile), and inflammatory bowel disease (IBD), such as ulcerative colitis. The chronological progression and systemic inflammation markers (elevated WBC and platelets) require prompt and thorough investigation. Most likely diagnoses Colorectal malignancy An annular or circumferential colorectal cancer is a critical "do not miss" diagnosis in an elderly patient with progressive abdominal symptoms and chronic constipation. * Supporting evidence: Circumferential wall thickening that progresses over time is highly suspicious for a malignancy. Weight loss is a classic B-symptom of cancer. * Imaging features: A malignant tumor can appear as a regular and symmetric thickening on a CT scan, though asymmetric thickening is more classic. A mass- like appearance could be caused by an infiltrating adenocarcinoma. Stercoral colitis This is an inflammatory process caused by the pressure of impacted stool, which can lead to ischemic injury, ulceration, and even perforation. * Supporting evidence: The CT scan specifically mentions "Large stool burden throughout the colon". The patient's history of [id number] constipation is a major risk factor. Elderly, non-ambulatory, and chronically ill patients are most susceptible. * Imaging features: CT typically shows impacted feces in a dilated colon, with adjacent colonic wall thickening and pericolonic fat stranding. Ischemic colitis This condition results from a temporary decrease in blood flow to the colon and is more common in elderly individuals with risk factors for vascular disease. * Supporting evidence: Ischemic colitis can cause abdominal pain and weight loss. The elderly population, especially women, is more susceptible to chronic ischemia. * Imaging features: A CT scan may show segmental or diffuse colonic wall thickening with a "target sign" or stratified pattern due to submucosal edema. Left-sided or diffuse involvement is common Infectious colitis This is an inflammation of the colon caused by an infection. * Supporting evidence: An elevated white blood cell count suggests an acute inflammatory or infectious process. * Imaging features: CT can show significant, often circumferential, wall thickening and pericolic fat stranding. * Common pathogens in the elderly:C. diff is a common pathogen in elderly or hospitalized patients that can cause significant colitis. C. diff is known to cause severe wall thickening, especially in the setting of disproportionately mild pericolic fat stranding on CT Inflammatory bowel disease (IBD) While a diagnosis of IBD (such as ulcerative colitis) in an 86-year-old is less common, it is a possibility and can present with progressive colitis. * Supporting evidence: A late-onset IBD is within the differential, and patients can experience progressive disease. * Imaging features: Ulcerative colitis typically presents with contiguous inflammation starting from the rectum and moving proximally. CT may show circumferential, symmetric, and diffuse colonic wall thickening. Evaluation and plan A definitive diagnosis cannot be made by CT alone, especially given the significant overlap in imaging features between the potential causes. A comprehensive evaluation is needed to guide treatment. * Colonoscopy with biopsy: A colonoscopy is the gold-standard next step for evaluation and is necessary to differentiate between these possibilities, especially to rule out malignancy and to identify the specific type of colitis. Biopsies of the inflamed mucosa can also help identify an infectious cause like C. difficile or the type of inflammatory changes. * Stool studies: A stool sample should be tested for C. difficile and other infectious pathogens to rule out an infectious colitis. * Blood tests: Additional blood work, including a complete blood count (CBC) with differential, inflammatory markers (ESR, CRP), and a check for platelets, can provide a more complete picture of the patient's systemic response. * Management: Treatment will depend on the final diagnosis. This could include medical management for infectious or inflammatory colitis, manual disimpaction and enemas for stercoral colitis, or surgical intervention for malignancy or severe complications. Charges/Coding Visit Charges Inpatient E&M: 69787 Init Hosp L3
[2025-03-25] MEDS: Lactobacillis Acidophilus 1 CAP PO ×2 (18:46→21:52)
[2025-03-25] MEDS: Polyethylene Glycol 3350 17 GM PACKET PO (21:52)
[2025-03-25] MEDS: Senna/Docusate Sodium 1 Tablet 2 TABLET PO (21:52)
[2025-03-26 03:04] VITALS: BMI 20.6
[2025-03-26] MEDS: Lactobacillis Acidophilus 1 CAP PO ×3 (05:48→20:54)
[2025-03-26 05:50] VITALS: BP 150/62; PULSE 83; RESP 16; TEMP 36.2; O2SAT 93
[2025-03-26 07:27] VITALS: O2SAT 95
[2025-03-26 08:27] VITALS: BP 126/58; PULSE 96; RESP 12; TEMP 37.7; O2SAT 91
[2025-03-26] MEDS: Ensure Clear 120 ML Liquid PO (08:35)
[2025-03-26] MEDS: Senna/Docusate Sodium 1 Tablet 2 TABLET PO (08:36)
[2025-03-26] MEDS: Polyethylene Glycol 3350 17 GM PACKET PO (08:39)
[2025-03-26] MEDS: Pantoprazole Sodium 40 MG in 0.9% Normal Saline (100mL MB+) 100 ML 330 MG IV ×2 (10:06→20:54)
[2025-03-26] MEDS: Meropenem 1 GM in 0.9% Normal Saline (100mL MB+) 100 ML IV ×2 (10:46→22:31)
--- NOTE | 2025-03-26 12:20 | RAD_ITS ---
PROCEDURE: CHEST PA AND LATERAL 03/26/2025 REASON FOR EXAM: HYPOXIA TECHNIQUE: Procedure Code: RADCXR Modality: DX Procedure: CHEST PA AND LATERAL COMPARISON: None. FINDINGS: Hardware: Monitor electrodes overlie the chest. Heart: No cardiomegaly. Tortuosity and atherosclerotic calcifications of the aorta. Mediastinum: Unremarkable. Lungs: Elevation of the right hemidiaphragm. Atelectasis in the lung bases. Bones: No acute bony abnormalities. RAD/Chest PA and Lateral IMPRESSION: Elevation of the right hemidiaphragm. Atelectasis in the lung bases. Pneumoni a can not be excluded. Reading Location: [id number]
[2025-03-26 12:59] LABS: CRP 155.00 mg/L (0.0-3.0)
--- NOTE | 2025-03-26 13:17 | PN.HOSP_ITS ---
Reason for Visit Chief Complaint: N/V, constipation, abdominal pain. Objective Data Objective Data Vital Signs: Vital Signs Temp Pulse Resp BP Pulse Ox O2 Del Method 99.9 F H 96 12 126/58 H 91 Room Air 03/26/25 08:27 03/26/25 08:27 03/26/25 08:27 03/26/25 08:27 03/26/25 08:27 03/26/25 08:27 Oxygen Delivery Method Room Air Weight: 105 lb 13.15 oz Body Mass Index (BMI) 20.6 Intake & Output: Intake and Output for Last 24 Hours 03/24/25 03/25/25 03/26/25 23:59 23:59 23:59 Intake Total 1100 / 1100 4000 / 4500 1050 / 1050 Balance 1100 / 1100 4000 / 4500 1050 / 1050 Medical Nutrition Assessment Dietitian: Malnutrition Criteria Met Start: 03/25/25 14:06 Freq: Status: Active Protocol: Document 03/25/25 14:06 SB (Rec: 03/25/25 14:06 SB [id number]) Nutrition Malnutrition Evidence of Yes Malnutrition Exists Malnutrition (severe Acute Illness/Injury ): Evidenced By Suboptimal Energy Intake (Severe),Weight Loss (Severe) Clinical Problem Acute Disease or Injury Related Malnutrition Etiology severe related to inadequate oral intake Signs/Symptoms as evidenced by PO meeting <50% of estimated nutrition needs x 1 month and 7% unintentional weight loss x 2 months. Status Active Problem Recommendation Dietitian Recommend advanced diet as tolerated to transitional Recommendations/ with goal of regular. Changes Continue 120ml ensure clear TID with medpass. Will monitor weight trends. Lab / Micro Data 03/25/25 04:59 03/25/25 04:59 Labs: Laboratory Results - last 24 hr 03/25/25 04:59: C-React Prot Ext Range 155.00 H 03/26/25 11:43: ESR 35 H Micro: Microbiology 03/24/25 21:02 Blood Culture (Wb) - Anticubital Right Blood Culture - Preliminary 03/24/25 21:05 Blood Culture (Wb) - Anticubital Right Blood Culture - Preliminary Radiography Diagnostic Testing: Radiology Impression Chest X-Ray 03/26/25 12:20 IMPRESSION: Elevation of the right hemidiaphragm. Atelectasis in the lung bases. Pneumonia can not be excluded. Reading Location: [facility] Physical Exam Narrative Seen and examined. She had 3 bowel movements yesterday. Abdominal cramps are almost resolved. Temperature 99.9 °F. She has symptoms of loose bowel movement, nausea and vomiting since February 10 intermittently. she said she lost about 14 pounds since February 2025 Physical exam General: Alert, Oriented x3, Cooperative HEENT: Atraumatic, PERRLA, EOMI, Normocephalic. Oral: No Gingival or Mucosal Lesions/ Ulcerations Neck: Supple, No JVD, Negative Carotid Bruits Chest wall/Lungs: Air entry diminished in bilateral lung bases. No crepitation/rhonchi Cardiovascular: Regular rate and rhythm, Normal S1,S2, Abdomen: Bowel Sounds hyperactive, present, soft, no tenderness no palpable mass. Soft systolic murmur : No dysuria. No renal angle tenderness. No suprapubic tenderness. Extremities: No edema, Capillary Refill Less than 3 Seconds Skin: No rashes, No breakdown Musculoskeletal: No Tenderness to Palpation of Joints or Extremities Neurological: Cranial nerves II-XII grossly intact, DTR 2+/4. No acute focal neurological deficit. Psych/Mental Status: Normal Affect, Appropriate. Assessment & Plan Assessment/Plan (1) Nausea & vomiting: PLAN: Plan The patient is an 84 y/o F with nausea and vomiting with significant persistent constipation with recent ED presentation on 02/[address] abdomen with IV contrast showed diffusely thickened rectosigmoid colon with adjacent inflammatory changes suggestive of proctocolitis were discharged after IV fluid replacement and electrolyte correction #1. SIRS with sepsis due to Acute distal rectosigmoid colitis: Patient had tachypnea, leukocytosis and lactic acidosis. In H&P also mention transient hypotension that resolved with IV fluid. Lactic acidosis might be due to decreased perfusion/colitis: Patient is being admitted in PCU. IV fluid rehydration. Patient had 30 mL/kg body weight IV fluid resuscitation as per sepsis criteria. On IV antibiotics IV meropenem. GI consulted. Patient had colonoscopy 10 years ago and was normal. Never had EGD Symptomatic management. CT abdomen shows progression of segmental colitis from rectosigmoid, sigmoid region to involve descending and transverse colon proximally. It also shows a stool impaction. 03/26: Patient had 3 times bowel movement yesterday. Stool studies ordered to rule out C. difficile and enteric pathogen panel. Patient might have a stercoral colitis or ischemic colitis or IBD. ESR CRP elevated. Patient has leukocytosis 32.2 thousand. Labs ordered #2. Chronic thrombocytosis: Unclear exact etiology: Admission platelets 734, similar to previous baseline noted 02/14/2025 platelets 71 and prior to this on 02/10/2025 platelets 542, continue to trend CBC. 03/26 platelet count 500 40K, improving. #3. Chronic Kidney Disease Stage II: Admission BUN/Cr 25/0.95, GFR 58, baseline renal function primarily 0.7-1.2 although 1.0-1.2 #4. Hypertension: Given low-normal BP and intractable nausea and emesis: Hold diuretic and HOLA/ARB admitted #5. Hyperlipidemia: Given intractable nausea and emesis will hold oral statin regimen, add back once clinically appropriate. #6. Hypothyroidism: continue patient on levothyroxine regimen if able to tolerate. #7. Severe protein calorie malnutrition: Evidenced by recent significant weight loss, inability to appropriately have oral intake, reduce BMI, nutrition consulted for recommendations. #8. DVT prophylaxis: Lovenox. #9. CODE status: Patient DELMY is her son who is present and living will is currently in place. Discussed CODE status at length including difference between FULL code, DNR-CCA and DNR-CC status. Following discussions about the differences in these status, requested Full Code status. Microbiology Past 72 Hours 03/24/25 21:02 Blood Culture (Wb) - Anticubital Right Blood Culture - Preliminary 03/24/25 21:05 Blood Culture (Wb) - Anticubital Right Blood Culture - Preliminary Laboratory Results 03/25/25 04:59: C-React Prot Ext Range 155.00 H 03/26/25 11:43: ESR 35 H Clinical Impression(s) from Imaging Studies Abdomen/Pelvis CT 03/24/25 19:29 IMPRESSION: 1. Nonspecific mild intra and extrahepatic biliary ductal dilatation, similar to prior. 2. Constipation with segmental colitis involving the distal rectosigmoid colon, which is now progressed proximally to involve the transverse and descending colonic segments. 3. Nonspecific small volume abdominopelvic ascites, likely related to the colitis. Reading Location: [id number] Charges/Coding Visit Charges Inpatient E&M: 00277 Subs Hosp L2
[2025-03-26 14:09] VITALS: BP 137/84; PULSE 85; RESP 14; TEMP 37.4; O2SAT 93
[2025-03-26 20:48] VITALS: BP 114/46; PULSE 87; RESP 16; TEMP 37; O2SAT 96
[2025-03-26] MEDS: 0.9% Normal Saline (250mL Bag) 250 ML 15 ML IV (20:55)
[2025-03-27 03:53] VITALS: BMI 19.8
[2025-03-27] MEDS: 0.9% Saline Lock 10 ML Syringe IV ×2 (04:11→09:40)
[2025-03-27 04:14] VITALS: BP 135/55; PULSE 82; RESP 14; TEMP 37.1; O2SAT 96
[2025-03-27] MEDS: Lactobacillis Acidophilus 1 CAP PO ×3 (06:23→21:00)
[2025-03-27 06:39] LABS: Hematocrit 28.8 % (37-47); Hemoglobin 9.1 g/dL (12.0-15.0); Immature Granulocytes Count 0.130 X10^3/uL (0.0-0.0); Mean Corp Hgb Conc 31.6 g/dL (32-36); Mean Corpuscular Volume 99.0 fL (81-99); Mean Platelet Vol. 8.1 fl (6.2-12.0); NRBC Flagged by Analyzer 0 % (0-5); Platelet Count 392 K/mm3 (150-450); RBC Distribution Width CV 14.1 % (11.6-14.6); RBC Distribution Width SD 51.2 fl (35.1-43.9); Red Blood Count 2.91 M/mm3 (4.2-5.4); White Blood Count 21.1 K/mm3 (4.4-11.0)
[2025-03-27 07:24] VITALS: O2SAT 98
[2025-03-27 07:52] LABS: Anion Gap 9 (5-15); BUN 18 mg/dL (4-19); BUN/Creat Ratio 40.3 RATIO (10-20); Calcium,Total 7.8 mg/dL (7.6-11.0); Carbon Dioxide 22.6 mmol/L (21.0-32.0); Chloride 107 mmol/L (98-108); Estimated Creatinine Clearance 36.26 ml/min (50-250); Glucose 93 mg/dL (70-99); Potassium 3.4 mmol/L (3.3-5.1)
[2025-03-27 09:36] VITALS: BP 137/61; PULSE 80; RESP 18; TEMP 36.6; O2SAT 95
[2025-03-27] MEDS: Pantoprazole Sodium 40 MG in 0.9% Normal Saline (100mL MB+) 100 ML 330 MG IV ×2 (09:39→21:01)
[2025-03-27] MEDS: Meropenem 1 GM in 0.9% Normal Saline (100mL MB+) 100 ML IV ×2 (10:28→22:33)
--- NOTE | 2025-03-27 10:54 | PN.HOSP_ITS ---
Subjective Subjective Feels much better today, she was placed on oxygen overnight but does not appear to need any during the day Objective Data Objective Data Vital Signs: Vital Signs Temp Pulse Resp BP Pulse Ox O2 Del Method O2 Flow Rate 97.8 F 80 18 137/61 H 95 Room Air 2 03/27/25 09:36 03/27/25 09:36 03/27/25 09:36 03/27/25 09:36 03/27/25 09:36 03/27/25 09:48 03/27/25 07:24 Oxygen Flow Rate (L/min) 2 Oxygen Delivery Method Room Air Weight: 101 lb 6.602 oz Body Mass Index (BMI) 19.8 Intake & Output: Intake and Output for Last 24 Hours 03/26/25 03/27/25 03/28/25 03:59 03:59 03:59 Intake Total 3600 / 3600 1700 / 1700 355 / 355 Balance 3600 / 3600 1700 / 1700 355 / 355 Medical Nutrition Assessment Dietitian: Malnutrition Criteria Met Start: 03/25/25 14:06 Freq: Status: Active Protocol: Document 03/25/25 14:06 SB (Rec: 03/25/25 14:06 SB [id number]) Nutrition Malnutrition Evidence of Yes Malnutrition Exists Malnutrition (severe Acute Illness/Injury ): Evidenced By Suboptimal Energy Intake (Severe),Weight Loss (Severe) Clinical Problem Acute Disease or Injury Related Malnutrition Etiology severe related to inadequate oral intake Signs/Symptoms as evidenced by PO meeting <50% of estimated nutrition needs x 1 month and 7% unintentional weight loss x 2 months. Status Active Problem Recommendation Dietitian Recommend advanced diet as tolerated to transitional Recommendations/ with goal of regular. Changes Continue 120ml ensure clear TID with medpass. Will monitor weight trends. Lab / Micro Data 03/27/25 05:32 03/27/25 05:32 Labs: Laboratory Results - last 24 hr 03/25/25 04:59: C-React Prot Ext Range 155.00 H 03/26/25 11:43: ESR 35 H 03/27/25 05:32: WBC 21.1 H, RBC 2.91 L, Hgb 9.1 L, Hct 28.8 L, MCV 99.0, MCH 31.3, MCHC 31.6 L, RDW Std Deviation 51.2 H, RDW Coeff of Anay 14.1, Plt Count 392, MPV 8.1, Immature Gran % (Auto) 0.600, Neut % (Auto) 85.6 H, Lymph % (Auto) 6.7 L, [place] % (Auto) 6.7, Eos % (Auto) 0.1, Baso % (Auto) 0.3, Absolute Neuts (auto) 18.0 H, Absolute Lymphs (auto) 1.41, Nucleated RBC % 0, Sodium 139, Potassium 3.4, Chloride 107, Carbon Dioxide 22.6, Anion Gap 9, BUN 18, C reatinine 0.46 L, Estim Creat Clear Calc 36.26 L, Est GFR (MDRD) Non-Af 93, B UN/Creatinine Ratio 40.3 H, Glucose 93, Calcium 7.8 Micro: Microbiology 03/24/25 21:02 Blood Culture (Wb) - Anticubital Right Blood Culture - Preliminary Gram negative griffin 03/24/25 21:05 Blood Culture (Wb) - Anticubital Right Blood Culture - Preliminary Gram negative griffin 03/26/25 13:00 Stool Stool Lactoferrin - Final 03/26/25 13:00 Stool Enteric Bacteriology - Final 03/26/25 13:00 Stool Clostridioides difficile (PCR) - Final 03/26/25 13:00 Stool Stool Occult Blood (NYDIA) - Final Occult Blood Positive Radiography Diagnostic Testing: Radiology Impression Chest X-Ray 03/26/25 12:20 IMPRESSION: Elevation of the right hemidiaphragm. Atelectasis in the lung bases. Pneumonia can not be excluded. Reading Location: [facility] Physical Exam Narrative General: Alert, Oriented x3, Cooperative, No apparent distress HEENT: Atraumatic, PERRLA, EOMI, Normocephalic Oral: Moist Mucosa Neck: Supple, No JVD Lungs: Diminished, Normal air movement, No rhonchi, No wheeze, No rales Cardiovascular: Regular rate, Regular Rhythm, Normal S1, Normal S2, No murmurs Abdomen: Soft, Non Tender, Non-Distended, No Hepato-splenomegaly Extremities: No edema, Capillary Refill Less than 3 Seconds Skin: No rashes, No breakdown Musculoskeletal: No Tenderness to Palpation of Joints or Extremities Neurological: No focal neurological deficits, moves all extremities Psych/Mental Status: Normal Affect, Appropriate Assessment & Plan Assessment/Plan (1) Nausea & vomiting: PLAN: Plan #1. SIRS with sepsis due to Acute distal rectosigmoid colitis: Patient had tachypnea, leukocytosis and lactic acidosis. In H&P also mention transient hypotension that resolved with IV fluid. Lactic acidosis might be due to decreased perfusion/colitis: Patient is being admitted in PCU. IV fluid rehydration. Patient had 30 mL/kg body weight IV fluid resuscitation as per sepsis criteria. On IV antibiotics IV meropenem. GI consulted. Patient had colonoscopy 10 years ago and was normal. Never had EGD Symptomatic management. CT abdomen shows progression of segmental colitis from rectosigmoid, sigmoid region to involve descending and transverse colon proximally. It also shows a stool impaction. 03/26: Patient had 3 times bowel movement yesterday. Stool studies ordered to rule out C. difficile and enteric pathogen panel. Patient might have a stercoral colitis or ischemic colitis or IBD. ESR CRP elevated. Patient has leukocytosis 32.2 thousand. Labs ordered 03/27/2025: Blood cultures with gram-negative rods. She was septic not because of SIRS criteria but because her lactic acid was 3.4 and her bicarb was less than 20 both of which have improved and resolved at this time. #2. Chronic thrombocytosis: Unclear exact etiology: Admission platelets 734, similar to previous baseline noted 02/14/2025 platelets 71 and prior to this on 02/10/2025 platelets 542, continue to trend CBC. 03/26 platelet count 500 40K, improving. #3. Chronic Kidney Disease Stage II: Admission BUN/Cr 25/0.95, GFR 58, baseline renal function primarily 0.7-1.2 although 1.0-1.2 #4. Hypertension: Given low-normal BP and intractable nausea and emesis: Hold diuretic and HOLA/ARB admitted #5. Hyperlipidemia: Given intractable nausea and emesis will hold oral statin regimen, add back once clinically appropriate. #6. Hypothyroidism: continue patient on levothyroxine regimen if able to tolerate. #7. Severe protein calorie malnutrition: Evidenced by recent significant weight loss, inability to appropriately have oral intake, reduce BMI, nutrition consulted for recommendations. DVT: Lovenox Charges/Coding Visit Charges Inpatient E&M: 28056 Subs Hosp L2
[2025-03-27 15:35] VITALS: BP 128/60; PULSE 79; RESP 17; TEMP 36.9; O2SAT 94
[2025-03-27] MEDS: Electrolyte Solution/Peg's 4000 ML 1000 ML PO (18:57)
[2025-03-27 21:00] VITALS: BP 146/63; PULSE 81; RESP 16; TEMP 36.8; O2SAT 94
[2025-03-28] VITALS (10 sets, daily range): BP systolic 107–145; BP diastolic 44–97; PULSE 75–88; RESP 16; TEMP 36.1–36.9; O2SAT 93–100; BMI 19.8; BMI 19.7
[2025-03-28 05:43] LABS: Hematocrit 34.8 % (37-47); Hemoglobin 11.1 g/dL (12.0-15.0); Immature Granulocytes Count 0.120 X10^3/uL (0.0-0.0); Mean Corp Hgb Conc 31.9 g/dL (32-36); Mean Corpuscular Volume 99.7 fL (81-99); Mean Platelet Vol. 9.1 fl (6.2-12.0); NRBC Flagged by Analyzer 0 % (0-5); Platelet Count 444 K/mm3 (150-450); RBC Distribution Width CV 14.2 % (11.6-14.6); RBC Distribution Width SD 51.8 fl (35.1-43.9); Red Blood Count 3.49 M/mm3 (4.2-5.4); White Blood Count 19.3 K/mm3 (4.4-11.0)
--- NOTE | 2025-03-28 05:55 | EKG12_ITS ---
Test Reason : AM EKG Blood Pressure : */* mmHG Vent. Rate : 85 BPM Atrial Rate : 85 BPM P-R Int : 152 ms QRS Dur : 78 ms QT Int : 380 ms P-R-T Axes : 41 17 30 degrees QTcB Int : 452 ms Normal sinus rhythm Normal ECG No previous ECGs available Confirmed by TERRA JAVIER, YOUNG ([id number]), photo editor FRANCES LAU ([id number]) on 03/28/2025 10:31:17 AM Referred By: Confirmed By: YOUNG ELLISON MD
[2025-03-28 06:12] LABS: Anion Gap 14 (5-15); BUN 11 mg/dL (4-19); BUN/Creat Ratio 26.5 RATIO (10-20); Calcium,Total 8.4 mg/dL (7.6-11.0); Carbon Dioxide 21.1 mmol/L (21.0-32.0); Chloride 103 mmol/L (98-108); Estimated Creatinine Clearance 36.26 ml/min (50-250); Glucose 93 mg/dL (70-99); Potassium 3.5 mmol/L (3.3-5.1)
[2025-03-28] MEDS: Lactobacillis Acidophilus 1 CAP PO ×3 (06:18→21:16)
[2025-03-28] MEDS: Pantoprazole Sodium 40 MG in 0.9% Normal Saline (100mL MB+) 100 ML 330 MG IV ×2 (08:34→21:03)
[2025-03-28] MEDS: 0.9% Normal Saline (250mL Bag) 250 ML 15 ML IV (08:34)
[2025-03-28] MEDS: Meropenem 1 GM in 0.9% Normal Saline (100mL MB+) 100 ML IV ×2 (09:00→21:17)
--- NOTE | 2025-03-28 10:43 | PN.HOSP_ITS ---
Subjective Subjective No issues overnight, feels little bit better Objective Data Objective Data Vital Signs: Vital Signs Temp Pulse Resp BP Pulse Ox O2 Del Method O2 Flow Rate 98.1 F 84 16 130/55 H 93 Room Air 2 03/28/25 08:39 03/28/25 08:39 03/28/25 08:39 03/28/25 08:39 03/28/25 08:39 03/28/25 08:40 03/27/25 07:24 Oxygen Flow Rate (L/min) 2 Oxygen Delivery Method Room Air Weight: 100 lb 15.547 oz Body Mass Index (BMI) 19.7 Intake & Output: Intake and Output for Last 24 Hours 03/27/25 03/28/25 03/29/25 03:59 03:59 03:59 Intake Total 1700 / 1700 667.5 / 667.5 182.5 / 182.5 Balance 1700 / 1700 667.5 / 667.5 182.5 / 182.5 Medical Nutrition Assessment Dietitian: Malnutrition Criteria Met Start: 03/25/25 14:06 Freq: Status: Active Protocol: Document 03/25/25 14:06 SB (Rec: 03/25/25 14:06 SB [id number]) Nutrition Malnutrition Evidence of Yes Malnutrition Exists Malnutrition (severe Acute Illness/Injury ): Evidenced By Suboptimal Energy Intake (Severe),Weight Loss (Severe) Clinical Problem Acute Disease or Injury Related Malnutrition Etiology severe related to inadequate oral intake Signs/Symptoms as evidenced by PO meeting <50% of estimated nutrition needs x 1 month and 7% unintentional weight loss x 2 months. Status Active Problem Recommendation Dietitian Recommend advanced diet as tolerated to transitional Recommendations/ with goal of regular. Changes Continue 120ml ensure clear TID with medpass. Will monitor weight trends. Lab / Micro Data 03/28/25 04:44 03/28/25 04:44 Labs: Laboratory Results - last 24 hr 03/28/25 04:44: WBC 19.3 H, RBC 3.49 L, Hgb 11.1 L, Hct 34.8 L, MCV 99.7 H, MCH 31.8, MCHC 31.9 L, RDW Std Deviation 51.8 H, RDW Coeff of Anay 14.2, Plt Count 444, MPV 9.1, Immature Gran % (Auto) 0.600, Neut % (Auto) 85.5 H, Lymph % (Auto) 7.1 L, [place] % (Auto) 6.3, Eos % (Auto) 0.1, Baso % (Auto) 0.4, Absolute Neuts (auto) 16.5 H, Absolute Lymphs (auto) 1.37, Nucleated RBC % 0, Sodium 137, Potassium 3.5, Chloride 103, Carbon Dioxide 21.1, Anion Gap 14, BUN 11, C reatinine 0.42 L, Estim Creat Clear Calc 36.26 L, Est GFR (MDRD) Non-Af 95, B UN/Creatinine Ratio 26.5 H, Glucose 93, Calcium 8.4 Micro: Microbiology 03/24/25 21:05 Blood Culture (Wb) - Anticubital Right Blood Culture - Final Bacteroides ovatus 03/24/25 21:02 Blood Culture (Wb) - Anticubital Right Blood Culture - Preliminary Gram negative griffin 03/26/25 13:00 Stool Stool Lactoferrin - Final 03/26/25 13:00 Stool Enteric Bacteriology - Final 03/26/25 13:00 Stool Clostridioides difficile (PCR) - Final 03/26/25 13:00 Stool Stool Occult Blood (NYDIA) - Final Occult Blood Positive Physical Exam Narrative General: Alert, Oriented x3, Cooperative, No apparent distress HEENT: Atraumatic, PERRLA, EOMI, Normocephalic Oral: Moist Mucosa Neck: Supple, No JVD Lungs: Diminished, Normal air movement, No rhonchi, No wheeze, No rales Cardiovascular: Regular rate, Regular Rhythm, Normal S1, Normal S2, No murmurs Abdomen: Soft, Non Tender, Non-Distended, No Hepato-splenomegaly Extremities: No edema, Capillary Refill Less than 3 Seconds Skin: No rashes, No breakdown Musculoskeletal: No Tenderness to Palpation of Joints or Extremities Neurological: No focal neurological deficits, moves all extremities Psych/Mental Status: Normal Affect, Appropriate Assessment & Plan Assessment/Plan (1) Nausea & vomiting: PLAN: Plan #1. SIRS with sepsis due to Acute distal rectosigmoid colitis with gram- negative griffin bacteremia: Patient had tachypnea, leukocytosis and lactic acidosis. In H&P also mention transient hypotension that resolved with IV fluid. Lactic acidosis might be due to decreased perfusion/colitis: Patient is being admitted in PCU. IV fluid rehydration. Patient had 30 mL/kg body weight IV fluid resuscitation as per sepsis criteria. On IV antibiotics IV meropenem. GI consulted. Patient had colonoscopy 10 years ago and was normal. Never had EGD Symptomatic management. CT abdomen shows progression of segmental colitis from rectosigmoid, sigmoid region to involve descending and transverse colon proximally. It also shows a stool impaction. 03/26: Patient had 3 times bowel movement yesterday. Stool studies ordered to rule out C. difficile and enteric pathogen panel. Patient might have a stercoral colitis or ischemic colitis or IBD. ESR CRP elevated. Patient has leukocytosis 32.2 thousand. Labs ordered 03/27/2025: Blood cultures with gram-negative rods. She was septic not because of SIRS criteria but because her lactic acid was 3.4 and her bicarb was less than 20 both of which have improved and resolved at this time. 03/28/2025: Appreciate gastroenterology's assistance, stool studies are negative. Blood cultures are demonstrating Bacteroides ovatus, ID is consulted #2. Chronic thrombocytosis: Unclear exact etiology: Admission platelets 734, similar to previous baseline noted 02/14/2025 platelets 71 and prior to this on 02/10/2025 platelets 542, continue to trend CBC. 03/26 platelet count 500 40K, improving. #3. Chronic Kidney Disease Stage II: Admission BUN/Cr 25/0.95, GFR 58, baseline renal function primarily 0.7-1.2 although 1.0-1.2 #4. Hypertension: Given low-normal BP and intractable nausea and emesis: Hold diuretic and HOLA/ARB admitted #5. Hyperlipidemia: Given intractable nausea and emesis will hold oral statin regimen, add back once clinically appropriate. #6. Hypothyroidism: continue patient on levothyroxine regimen if able to tolerate. #7. Severe protein calorie malnutrition: Evidenced by recent significant weight loss, inability to appropriately have oral intake, reduce BMI, nutrition consulted for recommendations. DVT: Lovenox Charges/Coding Visit Charges Inpatient E&M: 22947 Subs Hosp L2
--- NOTE | 2025-03-28 11:12 | PRE.ANES_ITS ---
ASA Classification* ASA Classification ASA Classification: 3 Assessment & Plan Anesthesia* Anesthesia Assessment Anesthesia Assessment: Discussed sedation and/or anesthesia options, risks, benefits, and alternatives with patient/parents/legal guardian/POA. Questions invited. The patient/parents/legal guardian/POA seems to understand and agrees to proceed with anesthesia plan. Reviewed the physical assessment, medical history, allergy history and patient home medications list prior to surgery/procedure/anesthetic and documented any changes. Performed airway and anesthesia risk assessments. Anesthesia Type Anesthesia Type: MAC Anesthesia Focused Assessment* Temperature: 98.1 F Pulse Rate: 84 Blood Pressure: 130/55 Respiratory Rate: 16 Pulse Ox: 93 Oxygen Flow Rate (L/min): 2 Airway Assessment Mouth opens: >3 cm Mallampati Score: II Labs Anesthesia Preop lab: CBC WBC, (4.4-11.0) 19.3 K/mm3 H Today, 04:44 RBC, (4.2-5.4) 3.49 M/mm3 L Today, 04:44 Hgb, (12.0-15.0) 11.1 g/dL L Today, 04:44 Hct, (37-47) 34.8 % L Today, 04:44 Plt Count, (150-450) 444 K/mm3 Today, 04:44 CHEMISTRY Potassium, (3.3-5.1) 3.5 mmol/L Today, 04:44 Sodium, (133-145) 137 mmol/L Today, 04:44 Magnesium, (1.5-2.2) 2.9 mg/dL H 03/24/25, 20:00 Phosphorus, (2.7-4.5) 5.5 mg/dL H 03/24/25, 20:00 BUN, (4-19) 11 mg/dL Today, 04:44 Creatinine, (0.70-1.20) 0.42 mg/dL L Today, 04:44 Glucose, (70-99) 93 mg/dL Today, 04:44 TSH, (0.358-3.74) 3.27 uIU/mL 04/30/16, 08:48 COAG Pre-Assessment Diagnosis/Proposed Procedure Planned Operative Procedure(s): Colonoscopy Anesthesia History 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 When Was Last Pacemaker Check QUESTION #4 FULL TEXT: You/Your Family Experience fever (hyperthermia) with Anesthesia Last Oral Intake Last Oral intake: Last Oral Intake NPO since 03:00 03/28/25 02:40 Meds taken in AM with sips of water? Meds patient instructed to take am of surgery PONV PONV - wildlife biostation research ecologist: PONV - wildlife biostation research ecologist Female HX of Motion Sickness HX of N/V After Surgery Non-Smoker Duration of Surgery greater than 60 minutes Number of Risk Factors PONV Score Height & Weight Height & Weight: Anesthesia: Height & Weight Height 5 ft 03/28/25 09:40 Weight: 45.8 kg 03/28/25 09:40 Body Mass Index (BMI) 19.7 03/28/25 05:03 Respiratory Assessment Respiratory Assessment - wildlife biostation research ecologist: Respiratory Tract Infection Hx - wildlife biostation research ecologist Hx Respiratory Tract Infection No 03/28/25 02:40 STOP Sleep Apnea STOP Sleep Apnea - wildlife biostation research ecologist: STOP Sleep Apnea - wildlife biostation research ecologist Hx Hypertension Yes 03/25/25 12:09 Hx Sleep Apnea No 03/25/25 01:17 CPAP BIPAP Do you snore loudly (louder No 03/25/25 01:17 than talking or can be heard Do you often feel tired/ No 03/25/25 01:17 fatigued/ sleepy during daytime? Has anyone observed you stop No 03/25/25 01:17 breathing during sleep? STOP Results Negative 03/25/25 01:17 QUESTION #5 FULL TEXT : Do you snore loudly (louder than talking or can be heard through closed doors)? Tobacco Use History Tobacco Use History - wildlife biostation research ecologist: Tobacco Use History - wildlife biostation research ecologist Tobacco Use Smoking Status Never smoker 03/25/25 01:17 Hx Tobacco Use No 03/25/25 01:17 Years Smoking Packs Smoked per Day Smoking Cessation Date was within the last 15 years Hx Smoking Cessation Date Hx Smoking Cessation Counseling Hematologic Medial History Hematologic Hx - wildlife biostation research ecologist: Hematologic Medical Hx - singing messenger Hx of Blood Transfusion No 03/25/25 01:17 Hx of Transfusion in last 3 No 03/25/25 01:17 Months Date of Last Transfusion (if within last 3 months) Ever experience any problems No 03/25/25 01:17 with transfusion(s)? Specify any problems Hx of Preganancy in last 3 No 03/25/25 01:17 Months Nurse Filling Out Transfusion JSNOW 03/25/25 01:17 & Questions: Date: 03/25/25 03/25/25 01:17 Time: 01:28 03/25/25 01:17 Patient unable to answer at this time (ie. confused, unrespo /Reproduction History /Reproductive History - wildlife biostation research ecologist: /Reproductive Hx- wildlife biostation research ecologist Hx Now Gestational Age (in weeks): EDC: Hx Hx Para Hx Section SAB Active Medications Active Medications: Current Medications Generic Name Dose Route Start Last Admin Trade Name Freq PRN Reason Stop Dose Admin Acetaminophen 650 mg 03/25/25 01:15 Acetaminophen 650 Mg Suppository RC Q4H PRN PRN Fever, pain 1-10 Acetaminophen 650 mg 03/25/25 01:15 03/26/25 08:35 Acetaminophen 325 Mg Tablet PO 650 mg Q4H PRN PRN Administration Fever, pain 1-10/10 Al Hydroxide/Mg Hydroxide 30 ml 03/25/25 01:15 Mag Hydrox/Al Hydrox/Simeth 30 Ml Udc PO Q6H PRN PRN Gastric Burning Albuterol Sulfate 2.5 mg 03/25/25 01:15 Albuterol 2.5 Mg/3 Ml Vial.Neb. INHALATION Q2H PRN PRN Dyspnea, wheezing Aspirin 81 mg 03/25/25 08:00 03/27/25 09:43 Aspirin 81 Mg Tab.Chew PO 81 mg BREAKFAST KELLI Administration Atenolol 50 mg 03/25/25 10:00 03/27/25 09:44 Atenolol 50 Mg Tablet PO 50 mg DAILY KELLI Administration Protocol Enoxaparin Sodium 40 mg 03/28/25 10:00 Enoxaparin 40 Mg/0.4 Ml Syringe SC DAILY KELLI Guaifenesin 20 ml 03/25/25 01:15 Guaifenesin 10 Ml Udc (200mg/10ml) PO Q4H PRN PRN COUGH Hydralazine HCl 10 mg 03/25/25 01:15 Hydralazine 20 Mg/Ml Vial IV Q4H PRN PRN SBP > 160 Protocol Pantoprazole Sodium 40 mg/ 100 mls @ 330 mls/hr 03/25/25 01:15 03/28/25 08:57 Sodium Chloride IV Infused Q12 KELLI Infusion Meropenem 1 gm/ Sodium 100 mls @ 33 mls/hr 03/25/25 10:00 03/28/25 09:00 Chloride IV 33 mls/hr Q12 KELLI Administration Sodium Chloride 250 mls @ 15 mls/hr 03/25/25 01:21 03/28/25 08:34 IV 0 mls/hr .[id number] PRN Infusion Saline Flush Sodium Chloride 250 mls @ 15 mls/hr 03/25/25 01:21 IV .[id number] PRN Additional IVPB Infusion Sodium Chloride 250 mls @ 15 mls/hr 03/27/25 05:41 IV .[id number] PRN Saline Flush Sodium Chloride 250 mls @ 15 mls/hr 03/27/25 05:41 IV .[id number] PRN Additional IVPB Infusion Levothyroxine Sodium 100 mcg 03/25/25 06:00 03/28/25 06:18 Levothyroxine 100 Mcg Tablet PO 100 mcg DAILY@0600 KELLI Administration Melatonin 3 mg 03/25/25 01:15 Melatonin 3 Mg Tablet PO QHS PRN PRN INSOMNIA Nutritional Formula (Lactose Free) 120 ml 03/25/25 08:00 03/28/25 08:27 Ensure Clear 120 Ml Liquid PO Not Given TIDCM KELLI Ondansetron HCl 4 mg 03/25/25 01:15 Ondansetron 4 Mg/2 Ml Vial IV Q8H PRN PRN NAUSEA/VOMITING Sodium Chloride 10 - 40 ml 03/25/25 01:21 03/27/25 09:40 0.9% Saline Lock 10 Ml Syringe IV 10 ml UD PRN Administration SALINE FLUSH Sodium Chloride 10 - 40 ml 03/27/25 05:41 0.9% Saline Lock 10 Ml Syringe IV UD PRN [facility] History Thrombocytosis Diverticulosis of colon Disorder of bone and cartilage Benign neoplasm of colon Osteoarthritis Hypertension Hypothyroidism High blood cholesterol Colitis Home Medications Medication Instructions Recorded Last Taken Type aspirin 81 mg tablet 81 mg PO DAILY Antiplatelet 02/14/25 03/24/25 History atenolol 50 mg tablet 50 mg PO DAILY High BP 02/1403/24/25 History hydrochlorothiazide 12.5 mg capsule 12.5 mg PO DAILY H igh BP 02/14/25 03/24/25 History levothyroxine 100 mcg tablet 100 mcg PO DAILY Thyroid 02/14/25 03/24/25 History replacement losartan 25 mg tablet 25 mg PO DAILY High bp 02/1403/24/25 History meloxicam 15 mg tablet 15 mg PO DAILY pain 02/14/25 03/24/25 History ondansetron 4 mg disintegrating 4 mg PO Q8H PRN PRN Na usea #10 tabs 02/14/25 03/24/25 Rx tablet simvastatin 10 mg tablet 10 mg PO QHS Cholesterol 05/3103/23/25 History cetirizine 10 mg capsule (All Day 10 mg PO QDAY PRN al lergies 03/21/25 03/24/25 History Allergy (cetirizine)) Allergy/AdvReac Type Severity Reaction Status Date / Time alendronate sodium (From Allergy Intermediate Other Verified 03/25/25 01:32 Fosamax) amoxicillin Allergy Intermediate Hives Verified 03/25/25 01:32 valacyclovir (From Valtrex) Allergy Intermediate Other Verified 03/25/25 01:32 levofloxacin AdvReac Abd Verified 03/25/25 01:32 cramps/diarrhea metronidazole (From Flagyl) AdvReac Abd Verified 03/25/25 01:32 cramps/diarrhea Family History Mother TIA (transient ischemic attack) CHF (congestive heart failure) Heart disease Father Heart disease Surgical History History of tonsillectomy and adenoidectomy H/O laparoscopy H/O dilation and curettage Social History household members: none Smoking Status: Never smoker alcohol intake: never substance use type: does not use Review of Systems (Anesthesia) ROS Narrative System reviewed and no additional complaints, except as documented.
[2025-03-28] MEDS: 0.9% Normal Saline (1000mL) 1,000 ML 15 ML IV (11:15)
--- NOTE | 2025-03-28 11:53 | PN_ITS ---
Progress Note Patient underwent colonoscopy prep last night. She was not clear so 3 subset enemas were ordered this morning. Physical Exam Const alert, oriented x3, no apparent distress and healthy appearing General Appearance: cooperative GI normal to inspection, nondistended, normoactive bowel sounds, soft to palpation, non-tender and non-distended Percussion: normal to percussion Rectal Exam: deferred Assessment & Plan Assessment/Plan (1) Nausea & vomiting: (2) Abdominal ascites: (3) Unintentional weight loss of 5% body weight or less within 1 month: (4) Acute dehydration: (5) Colitis: (6) Acidosis, lactic: (7) Acute hypotension: (8) Sepsis: PLAN: 84-year-old woman, the differential diagnosis for progressive, circumferential colonic wall thickening includes colorectal malignancy, ischemic colitis, infectious colitis (including C. difficile), and inflammatory bowel disease (IBD), such as ulcerative colitis. The chronological progression and systemic inflammation markers (elevated WBC and platelets) require prompt and thorough investigation. Most likely diagnoses Colorectal malignancy An annular or circumferential colorectal cancer is a critical "do not miss" diagnosis in an elderly patient with progressive abdominal symptoms and chronic constipation. * Supporting evidence: Circumferential wall thickening that progresses over time is highly suspicious for a malignancy. Weight loss is a classic B-symptom of cancer. * Imaging features: A malignant tumor can appear as a regular and symmetric thickening on a CT scan, though asymmetric thickening is more classic. A mass- like appearance could be caused by an infiltrating adenocarcinoma. Stercoral colitis This is an inflammatory process caused by the pressure of impacted stool, which can lead to ischemic injury, ulceration, and even perforation. * Supporting evidence: The CT scan specifically mentions "Large stool burden throughout the colon". The patient's history of [id number] constipation is a major risk factor. Elderly, non-ambulatory, and chronically ill patients are most susceptible. * Imaging features: CT typically shows impacted feces in a dilated colon, with adjacent colonic wall thickening and pericolonic fat stranding. Ischemic colitis This condition results from a temporary decrease in blood flow to the colon and is more common in elderly individuals with risk factors for vascular disease. * Supporting evidence: Ischemic colitis can cause abdominal pain and weight loss. The elderly population, especially women, is more susceptible to chronic ischemia. * Imaging features: A CT scan may show segmental or diffuse colonic wall thickening with a "target sign" or stratified pattern due to submucosal edema. Left-sided or diffuse involvement is common Infectious colitis This is an inflammation of the colon caused by an infection. * Supporting evidence: An elevated white blood cell count suggests an acute inflammatory or infectious process. * Imaging features: CT can show significant, often circumferential, wall thickening and pericolic fat stranding. * Common pathogens in the elderly:C. diff is a common pathogen in elderly or hospitalized patients that can cause significant colitis. C. diff is known to cause severe wall thickening, especially in the setting of disproportionately mild pericolic fat stranding on CT Inflammatory bowel disease (IBD) While a diagnosis of IBD (such as ulcerative colitis) in an 84-year-old is less common, it is a possibility and can present with progressive colitis. * Supporting evidence: A late-onset IBD is within the differential, and patients can experience progressive disease. * Imaging features: Ulcerative colitis typically presents with contiguous inflammation starting from the rectum and moving proximally. CT may show circumferential, symmetric, and diffuse colonic wall thickening. Evaluation and plan A definitive diagnosis cannot be made by CT alone, especially given the significant overlap in imaging features between the potential causes. A comprehensive evaluation is needed to guide treatment. * Colonoscopy with biopsy: A colonoscopy is the gold-standard next step for evaluation and is necessary to differentiate between these possibilities, especially to rule out malignancy and to identify the specific type of colitis. Biopsies of the inflamed mucosa can also help identify an infectious cause like C. difficile or the type of inflammatory changes. * Stool studies: A stool sample should be tested for C. difficile and other infectious pathogens to rule out an infectious colitis. * Blood tests: Additional blood work, including a complete blood count (CBC) with differential, inflammatory markers (ESR, CRP), and a check for platelets, can provide a more complete picture of the patient's systemic response. * Management: Treatment will depend on the final diagnosis. This could include medical management for infectious or inflammatory colitis, manual disimpaction and enemas for stercoral colitis, or surgical intervention for malignancy or severe complications. * 03/28/2025-further recommendations after colonoscopy. She was explained alternatives, risk and benefits include understanding bleeding, infection, sepsis, perforation, need for return to . She will have an ASA of 3. Visit Charges Inpatient E&M: 89039 Subs Hosp L3
--- NOTE | 2025-03-28 12:00 | COLBX_PTH ---
PATIENT: AMISH CAMPA LOC: [facility] U#:[id number] AGE/SX: 84/F ROOM: [facility] RE03/25/[address]: Dr. Alfredito Yuan MD : 1940 BED: 1 DIS: 03/29/2025 SPEC #: [id number] RECD: 03/28/25 13:50 STATUS: BK REPerez #: [id number] ETHAN: 03/28/25 12:[address]: Lucas Grossman DEPT: SURGICAL PATHOLOGY RECD BY: Fredy Wright ENTERED: 03/28/25 14:35 SP TYPE: COLON BX OTHR DR: MD Dr. Jesusita Torre MD Dr. Nicholas F Kotsonis, MD Dr. Prakash Chand, MD Dr. Robert Leininger, MD Heather Evans, FLIGHT [employer] TIME CLERK-C Ursula Hawkins, FLIGHT CREW TIME CLERK-C ARIANA Ward Tissues: A - Transverse colon B - Descending colon C - Sigmoid colon biopsy Procedures: Immunohistochemical Stains Surgery Specimen Level IV HEADER OPERATION: Colonoscopy with biopsy PRE-OP DIAGNOSIS: Nausea / vomiting TISSUE SUBMITTED: A- Transverse colon biopsy, B- Descending colon biopsy, C- Sigmoid colon biopsy MICROSCOPIC DIAGNOSIS A. Transverse colon, biopsy: * Ulcerated superficial colonic mucosa with abundant fibrinopurulent debris. * IHC for CMV (cytomegalovirus) is pending and will be reported in an addendum. B. Descending colon, biopsy: * Fragments of fibrinopurulent debris. * No colonic mucosa seen in these sections. C. Sigmoid colon, biopsy: * Fragment of benign colonic mucosa. * Detached fragments of fibrinopurulent debris. * IHC for CMV (cytomegalovirus) is pending and will be reported in an addendum. MICROSCOPIC DESCRIPTION Slides are reviewed. GROSS DESCRIPTION A. Received in fixative is one container labeled with the patient's name and designated "Transverse colon biopsy." The specimen consists of multiple irregular fragments of hauser tissue that in aggregate measure 0.5 x 0.4 x 0.1 cm. The specimen is totally submitted in one cassette. B. Received in fixative is one container labeled with the patient's name and designated "Descending colon biopsy." The specimen consists of two irregular fragments of hauser tissue that measure 0.2 and 0.3 cm. The specimen is totally submitted in one cassette. C. Received in fixative is one container labeled with the patient's name and designated "Sigmoid colon biopsy." The specimen consists of multiple irregular fragments of hauser tissue that in aggregate measure 0.8 x 0.4 x 0.2 cm. The specimen is totally submitted in one cassette. [place] 03/28/2025 CPT:94273j6,93203v7 ADDENDUM ADDENDUM ADDENDUM ADDENDUM ADDENDUM ADDENDUM ADDENDUM ADDENDUM ADDENDUM ADDENDUM ADDENDUM ADDENDUM ADDENDUM 04/08/2025 09:53 ADDENDUM 04/08/2025 09:53 ADDENDUM 04/08/2025 09:53 ADDENDUM 04/08/2025 09:53 ADDENDUM 04/08/2025 09:53 This addendum is to report the findings of the IHC for CMV on part A and part C: IHC for CMV (cytomegalovirus) is negative in both part A and part C. All matched controls reacted appropriately. These tests were developed and their performance characteristics determined by [facility]. They may not have been cleared or approved by the U.S. Food and Drug Administration. The FDA has determined that such clearance or approval is not necessary. The above immunohistochemical markers and/or special stains have been reviewed by the Pathologist.
--- NOTE | 2025-03-28 13:04 | OP.PROVAT_ITS ---
03/28/2025 Jesusita Kamara [address] [place] [address] Re : Colonoscopy procedure for Paty Rios Dear Dr. Kamara This procedure was performed on Friday, March 28, 2025. My impressions and recommendations are as follows: Impressions : - Preparation of the colon was fair. - Diverticulosis in the recto-sigmoid colon, in the sigmoid colon and in the descending colon. - Diffuse severe inflammation was found in the sigmoid colon, in the descending colon, at the splenic flexure, in the transverse colon and at the hepatic flexure secondary to ischemic colitis. Biopsied. - Stool in the rectum, in the recto-sigmoid colon, in the sigmoid colon, in the descending colon, at the splenic flexure, in the ascending colon and in the cecum. Recommendations : - Discharge patient to home. - Resume previous diet. - Continue present medications. - Await pathology results. - No repeat colonoscopy due to age. My findings are described in the full procedure note, which is enclosed. If I can be of further assistance, please feel free to contact me at . Sincerely, Lucas Grossman, 03/28/2025 1:04:00 PM This report has been signed electronically.
--- NOTE | 2025-03-28 13:04 | OP.COLON_ITS ---
Patient Name: Paty Rios Procedure Date: 03/28/2025 12:25 PM Date of : 1940 Age: 84 Procedure: Colonoscopy Indications: Abdominal pain in the left lower quadrant, Abdominal pain in the left upper quadrant, Lower abdominal pain Providers: Lucas Grossman DO Medicines: Monitored Anesthesia Care Patient Profile: This is an 84 year old female. Refer to note in patient chart for documentation of history and physical. Last Colonoscopy: several years ago. Complications: No immediate complications. Procedure: Pre-Anesthesia Assessment: - Prior to the procedure, a History and Physical was performed, and patient medications and allergies were reviewed. The patient is competent. The risks and benefits of the procedure and the sedation options and risks were discussed with the patient. All questions were answered and informed consent was obtained. Patient identification and proposed procedure were verified by the physician in the pre-procedure area. Mental Status Examination: alert and oriented. Airway Examination: normal oropharyngeal airway and neck mobility. Respiratory Examination: clear to auscultation. CV Examination: normal. Prophylactic Antibiotics: The patient does not require prophylactic antibiotics. Prior Anticoagulants: The patient has taken no anticoagulant or antiplatelet agents. ASA Grade Assessment: II - A patient with mild systemic disease. After reviewing the risks and benefits, the patient was deemed in satisfactory condition to undergo the procedure. The anesthesia plan was to use monitored anesthesia care (MAC). Immediately prior to administration of medications, the patient was re-assessed for adequacy to receive sedatives. The heart rate, respiratory rate, oxygen saturations, blood pressure, adequacy of pulmonary ventilation, and response to care were monitored throughout the procedure. The physical status of the patient was re-assessed after the procedure. After I obtained informed consent, the scope was passed under direct vision. Throughout the procedure, the patient's blood pressure, pulse, and oxygen saturations were monitored continuously. The Colonoscope was introduced through the anus and advanced to the cecum, identified by appendiceal orifice and ileocecal valve. The colonoscopy was performed without difficulty. The patient tolerated the procedure well. The quality of the bowel preparation was fair. The ileocecal valve, appendiceal orifice, and rectum were photographed. Scope In: 12:35:53 PM Scope Withdrawal Time 0 hours 6 minutes 50 seconds Scope Out: 12:54:56 PM Total Procedure Duration Time 0 hours 19 minutes 3 seconds Findings: The perianal and digital rectal examinations were normal. Multiple small and large-mouthed diverticula were found in the recto-sigmoid colon, sigmoid colon and descending colon. Diffuse severe inflammation characterized by erosions, erythema, friability, granularity, loss of vascularity and deep ulcerations was found in the sigmoid colon, in the descending colon, at the splenic flexure, in the transverse colon and at the hepatic flexure. Biopsies were taken with a cold forceps for histology. Verification of patient identification for the specimen was done. Estimated blood loss was minimal. Stool was found in the rectum, in the recto-sigmoid colon, in the sigmoid colon, in the descending colon, at the splenic flexure, in the ascending colon and in the cecum. Impression: - Preparation of the colon was fair. - Diverticulosis in the recto-sigmoid colon, in the sigmoid colon and in the descending colon. - Diffuse severe inflammation was found in the sigmoid colon, in the descending colon, at the splenic flexure, in the transverse colon and at the hepatic flexure secondary to ischemic colitis. Biopsied. - Stool in the rectum, in the recto-sigmoid colon, in the sigmoid colon, in the descending colon, at the splenic flexure, in the ascending colon and in the cecum. Recommendation: - Discharge patient to home. - Resume previous diet. - Continue present medications. - Await pathology results. - No repeat colonoscopy due to age. Procedure Code(s): --- Professional --- 30317, Colonoscopy, flexible; with biopsy, single or multiple CPT copyright 2021 [employer]. All rights reserved. The codes documented in this report are preliminary and upon emergency care tech review may be revised to meet current compliance requirements. Lucas Grossman DO 03/28/2025 1:04:00 PM This report has been signed electronically. Number of Addenda: 0 Note Initiated On: 03/28/2025 12:25 PM
--- NOTE | 2025-03-28 13:05 | PCM.POST.ANE ---
Anesthesia: Postop Eval I Current Vital Signs Temperature: 97 F Pulse Rate: 80 Blood Pressure: 107/58 Respiratory Rate: 16 Pulse Ox: 98 Oxygen Delivery Method: Room Air Assessment Airway patent: Yes Spontaneous unlabored respirations: Yes Mental status: Awake and Calm nausea: No Vomiting: No Anesthesia Complication: No Fluid Hydration Crystalloid volume administer (ml): 500 Total IV fluid infused: 500 Progress Note Anesthesia document: Postop Eval 1 completed: Yes
--- NOTE | 2025-03-28 13:15 | PCM.POSTANE2 ---
Anesthesia Postop Eval I Sum Postop Eval Completion status Anesthesia document: Postop Eval 1 completed: Yes Anesthesia Postop Eval I Summary Anesthesia Postop Eval I Summary: Anesthesia Postop Eval I: Assessment Summary Airway patent Yes 03/28/25 13:07 [email or web address] Spontaneous unlabored Yes 03/28/25 13:07 [email or web address] respirations Mental status Awake,Calm 03/28/25 13:07 [email or web address] nausea No 03/28/25 13:07 [email or web address] Vomiting No 03/28/25 13:07 [email or web address] Anesthesia Postop Eval I: Fluid Summary Crystalloid volume administer 500 03/28/25 13:07 [email or web address] (ml) Colloids volume administered ( ml) Blood Product volume administered (ml) Total IV fluid infused 500 03/28/25 13:07 [email or web address] Anesthesia Postop Eval I: Summary Notes Anesthesia Complication No 03/28/25 13:07 [email or web address] Anesthesia Complication Comment: Post-operative progress note Anesthesia: Postop Eval II Evaluation Mental status: Awake Pain Level: 0 nausea: No Vomiting: No
--- NOTE | 2025-03-28 14:25 | PCM.CONS.GEN ---
Assessment & Plan Assessment/Plan (1) Sepsis: PLAN: sepsis due to GNR bacteremia from colitis - colonoscopy done. Feeling better, continue meropenem/ Will follow, thank you (2) Bacteremia due to Gram-negative bacteria: (3) Colitis: HPI Consult Data Date of Consult: 03/28/25 HPI Narrative Reason for Consultation: bacteremia HPI Narrative: AMISH CAMPA, is a 84 F with h/o CKD, htn, presented with almost 2 months n/v, poor po intake, 10+ lb weight loss. No fever, no blood in stool. Had come to ED, given levaquin and flagyl. Sx worsened, had shaking chills, came back to ED 03/25, admitted and now on meropenem. Feeling better. Had colonoscopy this AM. Full ROS performed and neg except as noted above. [facility] Medical History Thrombocytosis Diverticulosis of colon Disorder of bone and cartilage Benign neoplasm of colon Osteoarthritis Hypertension Hypothyroidism High blood cholesterol Colitis Home Medications Medication Instructions Recorded Last Taken Type aspirin 81 mg tablet 81 mg PO DAILY Antiplatelet 02/14/25 03/24/25 History atenolol 50 mg tablet 50 mg PO DAILY High BP 02/14/25 03/24/25 History hydrochlorothiazide 12.5 mg capsule 12.5 mg PO DAILY High BP 02/14/25 03/24/25 History levothyroxine 100 mcg tablet 100 mcg PO DAILY Thyroid 02/14/25 03/24/25 History replacement losartan 25 mg tablet 25 mg PO DAILY High bp 02/14/25 03/24/25 History meloxicam 15 mg tablet 15 mg PO DAILY pain 02/14/25 03/24/25 History ondansetron 4 mg disintegrating 4 mg PO Q8H PRN PRN Nausea #10 tabs 02/14/25 03/24/25 Rx tablet simvastatin 10 mg tablet 10 mg PO QHS Cholesterol 02/14/25 03/23/25 History cetirizine 10 mg capsule (All Day 10 mg PO QDAY PRN allergies 03/21/25 03/24/25 History Allergy (cetirizine)) Allergy/AdvReac Type Severity Reaction Status Date / Time alendronate sodium (From Allergy Intermediate Other Verified 03/25/25 01:32 Fosamax) amoxicillin Allergy Intermediate Hives Verified 03/25/25 01:32 valacyclovir (From Valtrex) Allergy Intermediate Other Verified 03/25/25 01:32 levofloxacin AdvReac Abd Verified 03/25/25 01:32 cramps/diarrhea metronidazole (From Flagyl) AdvReac Abd Verified 03/25/25 01:32 cramps/diarrhea Family History Mother TIA (transient ischemic attack) CHF (congestive heart failure) Heart disease Father Heart disease Surgical History History of tonsillectomy and adenoidectomy H/O laparoscopy H/O dilation and curettage Social History household members: none Smoking Status: Never smoker alcohol intake: never substance use type: does not use Physical Exam Const alert, oriented x3 and no apparent distress General Appearance: cooperative HEENT normocephalic and head/scalp atraumatic Eyes PERRL and EOMs intact bilaterally Neck supple and No nodes Resp normal air movement and clear to auscultation bilaterally Cardio regular rate and regular rhythm GI soft to palpation, non-tender and non-distended Extremity General Extremity: Negative for edema Skin no rashes or lesions noted Neuro CN's II-XII intact bilaterally Medical Records Data Medical Nutrition Assessment Dietitian: Malnutrition Criteria Met Start: 03/25/25 14:06 Freq: Status: Active Protocol: Document 03/25/25 14:06 (Rec: 03/25/25 14:06 [id number]) Nutrition Malnutrition Evidence of Yes Malnutrition Exists Malnutrition (severe Acute Illness/Injury ): Evidenced By Suboptimal Energy Intake (Severe),Weight Loss (Severe) Clinical Problem Acute Disease or Injury Related Malnutrition Etiology severe related to inadequate oral intake Signs/Symptoms as evidenced by PO meeting <50% of estimated nutrition needs x 1 month and 7% unintentional weight loss x 2 months. Status Active Problem Recommendation Dietitian Recommend advanced diet as tolerated to transitional Recommendations/ with goal of regular. Changes Continue 120ml ensure clear TID with medpass. Will monitor weight trends. Lab / Micro Data Attestation: I reviewed the patient's lab results. 03/28/25 04:44 03/28/25 04:44 Labs: Laboratory Results - last 24 hr 03/28/25 04:44: WBC 19.3 H, RBC 3.49 L, Hgb 11.1 L, Hct 34.8 L, MCV 99.7 H, MCH 31.8, MCHC 31.9 L, RDW Std Deviation 51.8 H, RDW Coeff of Anay 14.2, Plt Count 444, MPV 9.1, Immature Gran % (Auto) 0.600, Neut % (Auto) 85.5 H, Lymph % (Auto) 7.1 L, [place] % (Auto) 6.3, Eos % (Auto) 0.1, Baso % (Auto) 0.4, Absolute Neuts (auto) 16.5 H, Absolute Lymphs (auto) 1.37, Nucleated RBC % 0, Sodium 137, Potassium 3.5, Chloride 103, Carbon Dioxide 21.1, Anion Gap 14, BUN 11, Creatinine 0.42 L, Estim Creat Clear Calc 36.26 L, Est GFR (MDRD) Non-Af 95, BUN/Creatinine Ratio 26.5 H, Glucose 93, Calcium 8.4 Micro: Microbiology 03/24/25 21:02 Blood Culture (Wb) - Anticubital Right Blood Culture - Preliminary Gram negative griffin 03/24/25 21:05 Blood Culture (Wb) - Anticubital Right Blood Culture - Final Bacteroides ovatus
[2025-03-28] MEDS: 0.9% Saline Lock 10 ML Syringe IV (21:04)
[2025-03-29 04:52] VITALS: BMI 20.2
[2025-03-29 05:00] VITALS: BP 131/58; PULSE 79; RESP 16; TEMP 36.3; O2SAT 95
[2025-03-29] MEDS: Lactobacillis Acidophilus 1 CAP PO ×2 (05:30→15:34)
[2025-03-29 05:48] LABS: Hematocrit 35.4 % (37-47); Hemoglobin 11.2 g/dL (12.0-15.0); Immature Granulocytes Count 0.060 X10^3/uL (0.0-0.0); Mean Corp Hgb Conc 31.6 g/dL (32-36); Mean Corpuscular Volume 98.6 fL (81-99); Mean Platelet Vol. 9.0 fl (6.2-12.0); NRBC Flagged by Analyzer 0 % (0-5); POSITIVE MORPHOLOGY YES; Platelet Count 446 K/mm3 (150-450); RBC Distribution Width CV 14.3 % (11.6-14.6); RBC Distribution Width SD 52.1 fl (35.1-43.9); Red Blood Count 3.59 M/mm3 (4.2-5.4); White Blood Count 6.4 K/mm3 (4.4-11.0)
[2025-03-29 05:52] LABS: Differential Indicated SCAN CRITERIA MET
[2025-03-29 06:24] LABS: Anion Gap 13 (5-15); BUN 11 mg/dL (4-19); BUN/Creat Ratio 31.5 RATIO (10-20); Calcium,Total 7.8 mg/dL (7.6-11.0); Carbon Dioxide 20.9 mmol/L (21.0-32.0); Chloride 105 mmol/L (98-108); Estimated Creatinine Clearance 36.26 ml/min (50-250); Glucose 107 mg/dL (70-99); Potassium 3.5 mmol/L (3.3-5.1)
[2025-03-29 06:53] VITALS: O2SAT 95
[2025-03-29] MEDS: Ensure Clear 120 ML Liquid PO (08:30)
[2025-03-29 10:26] VITALS: BP 109/50; PULSE 72; RESP 16; TEMP 36.7; O2SAT 96
[2025-03-29] MEDS: Pantoprazole Sodium 40 MG in 0.9% Normal Saline (100mL MB+) 100 ML 330 MG IV (10:30)
[2025-03-29] MEDS: Meropenem 1 GM in 0.9% Normal Saline (100mL MB+) 100 ML IV (10:55)
[2025-03-29 17:00] VITALS: BP 152/71; PULSE 68; RESP 16; TEMP 36.7; O2SAT 97
--- NOTE | 2025-03-29 17:18 | DCINST_ITS ---
Discharge Instructions DC O2, CPAP, BIPAP needs Home O2 Discharge instructions: No Dressing / Incision Discharge Activity: Return to Normal Activity Dressing / Incision Call your doctor if you observe: Fever of 101 or Higher, Shortness of breath, Dizziness, Fainting spells, Swelling in the ankles, Chest pain and Increased palpitations (irregular heartbeat) Follow Up Care Test Results: Test results from this visit will be discussed in further detail at your follow- up appointment, if applicable. Discharge Plan Admission Admit Date/Time: 03/25/25 00:20 Attending Provider: Alfredito Yuan Primary Care Provider: Jesusita Kamara Consulting Providers: Nelson Vang; Lucas Grossman; Karrie Gnanon; Ursula Hawkins; Gemini Morrow; Anca Dailey; Justus Luna Discharge Orders/Prescriptions Prescriptions: New polyethylene glycol 3350 [ClearLax] 17 gram/dose powder 17 g PO BID 30 Days Qty: 1020 0RF Continued All Day Allergy (cetirizine) 10 mg capsule 10 mg PO QDAY PRN (Reason: allergies) meloxicam 15 mg tablet 15 mg PO DAILY simvastatin 10 mg tablet 10 mg PO QHS levothyroxine 100 mcg tablet 100 mcg PO DAILY losartan 25 mg tablet 25 mg PO DAILY hydrochlorothiazide 12.5 mg capsule 12.5 mg PO DAILY atenolol 50 mg tablet 50 mg PO DAILY aspirin 81 mg tablet 81 mg PO DAILY ondansetron 4 mg tablet,disintegrating 4 mg PO Q8H PRN PRN (Reason: Nausea) Qty: 10 0RF Referrals / Follow Up: Jesusita Kamara MD [Primary Care Provider, Internal Medicine] - Within 1 Week Lucas Grossman DO [Med Staff - Active Staff, Gastroenterology] - Within 1 Month Disposition Disposition (needs filled in before D/C Order can be placed): Home, Self Care
--- NOTE | 2025-03-29 18:01 | DS.PCM_ITS ---
Providers Date of Admission: 03/25/25 Primary Care Physician: Dr. Jesusita Kamara MD Consultations 03/25/25 01:15 Consult: Gastroenterology Routine Consulting Provider: [facility] Reason for Consult: Colitis, constipation EMERGENT Consult: No Notified: Yes Date Notified: 03/25/25 Time Notified: 00:21 Method of Notification: Text 03/26/25 17:38 Consult: Infectious Disease Routine Consulting Provider: Justus Luna Reason for Consult: positive blood cultures EMERGENT Consult: No Notified: Yes Date Notified: 03/28/25 Time Notified: 06:48 Method of Notification: Text Reason For Visit: SIRS,COLITIS Diagnosis Discharge Diagnosis (1) Sepsis: Status: Acute Code(s): A41.9 - Sepsis, unspecified organism (2) Bacteremia due to Gram-negative bacteria: Status: Acute Code(s): R78.81 - Bacteremia (3) Colitis: Status: Acute Code(s): K52.9 - Noninfective gastroenteritis and colitis, unspecified Medications at Discharge Home Medications aspirin 81 mg tablet 81 mg PO DAILY Antiplatelet 02/14/25 atenolol 50 mg tablet 50 mg PO DAILY High BP 02/14/25 hydrochlorothiazide 12.5 mg capsule 12.5 mg PO DAILY High BP 02/14/25 levothyroxine 100 mcg tablet 100 mcg PO DAILY Thyroid replacement 02/14/25 losartan 25 mg tablet 25 mg PO DAILY High bp 02/14/25 meloxicam 15 mg tablet 15 mg PO DAILY pain 02/14/25 ondansetron 4 mg disintegrating tablet 4 mg PO Q8H PRN PRN Nausea #10 tabs 02/14/25 simvastatin 10 mg tablet 10 mg PO QHS Cholesterol 02/14/25 cetirizine 10 mg capsule (All Day Allergy (cetirizine)) 10 mg PO QDAY PRN allergies 03/21/25 polyethylene glycol 3350 17 gram/dose oral powder (ClearLax) 17 g PO BID 30 days #1,020 grams 03/29/25 Hospital Course Operations None Procedures Colonoscopy Summary of Care Provided Minutes Spent on Discharge: 38 Hospital Course: Per HPI: The patient is an 84 y/o F w/ PMHx: History of benign neoplasm of the colon, chronic thrombocytosis, HTN, HLD, Hypothyroidism, CKD stage II per GFR trending who presents to [facility] ED on 03/24/2025 with history of persistent nausea and emesis ongoing for the last 7 weeks seen multiple times with significant persistent constipation with recent abdominal ultrasound performed on day prior to ED evaluation not at [facility] however with most recent imaging previous to this during an ED visit with CT abdomen and pelvis with IV contrast on 02/10/2025 with diffusely thickened rectosigmoid colon with adjacent inflammatory changes with questionable proctocolitis with mildly dilated bile ducts with no obstructing lesion discharged home at that time now re-presenting given intractability of her nausea/emesis, inability to maintain oral intake, weight loss and persistent constipation. She notes that her nausea and emesis as well as lack of bowel movement has been more significant over the last 3 days. During her previous ED evaluation when she was discharged with proctitis she was treated with Levaquin and Flagyl secondary to her allergies/intolerances. She notes that she is actually still taking the Flagyl and Levaquin. Workup in the ED included T98.2, heart rate 64, BP initially 90/55, respiratory rate 16, 96% on room air with most recent repeat vitals T98, heart rate 72, BP 123/78, respiratory rate 17, 96% on room air, CBC with WBC 38, hemoglobin 13.9, platelets 734 with significant left shift, lactic acid 3.4, CMP with BUN/creatinine 25/0.95, GFR 58, glucose 171, hepatic profile with AST 35, alk phos 138 otherwise not marked appearing, CT abdomen and pelvis with IV and oral contrast with nonspecific mild intra and extrahepatic biliary ductal dilatation similar to prior, constipation with segmental colitis involving the distal rectosigmoid colon now progressed proximally to involve the transverse and descending colonic segments with nonspecific small volume abdominopelvic ascites likely related to the colitis, blood culture x 2 pending per ED. In the ED patient ministered 2 L normal saline (administered 30 cc/kg IVFs), meropenem 1 g IV x 1 and Zofran 4 mg IV x 1. Hospital Course: 1. Sepsis secondary to rectosigmoid colitis with Bacteroides bacteremia–8 4-year-old female presented to the hospital significant constipation and a lack of bowel movement about 2 weeks was found to have sepsis. She was started on meropenem based on allergies and gastroenterology and infectious disease were consulted. Gastroenterology performed a colonoscopy and they felt that the appearance of the mucosa was consistent with ischemic colitis. They recommended MiraLAX twice daily on discharge to prevent further constipation. She did have significant improvement and today feels great and would like to go home. Her leukocytosis went from 38 on the day of admission down to 6.4 today. She would like to go home today so I elected to treat her with with 1 dose of Invanz to cover her for the next 24 hours as infectious disease felt like this would complete her treatment given her significant improvement. I discussed with her and her son the plan for discharge today and expressed understanding of the risks and benefits of going home and would like to go home today. 2. Chronic thrombocytosis, essential hypertension, hyperlipidemia, hypothyroidism, are all chronic medical conditions which complicate her care. Her home medications were continued where appropriate Physical Exam Narrative General: Alert, Oriented x3, Cooperative, No apparent distress HEENT: Atraumatic, PERRLA, EOMI, Normocephalic Oral: Moist Mucosa Neck: Supple, No JVD Lungs: Diminished, Normal air movement, No rhonchi, No wheeze, No rales Cardiovascular: Regular rate, Regular Rhythm, Normal S1, Normal S2, No murmurs Abdomen: Soft, Non Tender, Non-Distended, No Hepato-splenomegaly Extremities: No edema, Capillary Refill Less than 3 Seconds Skin: No rashes, No breakdown Musculoskeletal: No Tenderness to Palpation of Joints or Extremities Neurological: No focal neurological deficits, moves all extremities Psych/Mental Status: Normal Affect, Appropriate Medical Records Data Medical Nutrition Assessment Dietitian: Malnutrition Criteria Met Start: 03/25/25 14:06 Freq: Status: Active Protocol: Document 03/25/25 14:06 (Rec: 03/25/25 14:06 [id number]) Nutrition Malnutrition Evidence of Yes Malnutrition Exists Malnutrition (severe Acute Illness/Injury ): Evidenced By Suboptimal Energy Intake (Severe),Weight Loss (Severe) Clinical Problem Acute Disease or Injury Related Malnutrition Etiology severe related to inadequate oral intake Signs/Symptoms as evidenced by PO meeting <50% of estimated nutrition needs x 1 month and 7% unintentional weight loss x 2 months. Status Active Problem Recommendation Dietitian Recommend advanced diet as tolerated to transitional Recommendations/ with goal of regular. Changes Continue 120ml ensure clear TID with medpass. Will monitor weight trends. Weight / BMI Weight Weight: 103 lb 6.349 oz Body Mass Index (BMI) 20.2 ABG / Lab / Microbiology Data 03/29/25 04:49 03/29/25 04:49 Laboratory: Laboratory Results - last 24 hr 03/29/25 04:49: WBC 6.4, RBC 3.59 L, Hgb 11.2 L, Hct 35.4 L, MCV 98.6, MCH 31.2, MCHC 31.6 L, RDW Std Deviation 52.1 H, RDW Coeff of Anay 14.3, Plt Count 446, MPV 9.0, Immature Gran % (Auto) 0.900, Neut % (Auto) 82.9 H, Lymph % (Auto) 13.2 L, Lawrence % (Auto) 2.7, Eos % (Auto) 0.0, Baso % (Auto) 0.3, Absolute Neuts (auto) 5.3, Absolute Lymphs (auto) 0.84, Nucleated RBC % 0, Sodium 139, Potassium 3.5, Chloride 105, Carbon Dioxide 20.9 L, Anion Gap 13, BUN 11, Creatinine 0.35 L, E stim Creat Clear Calc 36.26 L, Est GFR (MDRD) Non-Af 99, BUN/Creatinine Ratio 31.5 H, Glucose 107 H, Calcium 7.8 Microbiology: Microbiology 03/24/25 21:02 Blood Culture (Wb) - Anticubital Right Blood Culture - Preliminary Gram negative griffin 03/24/25 21:05 Blood Culture (Wb) - Anticubital Right Blood Culture - Final Bacteroides ovatus 03/26/25 13:00 Stool Stool Lactoferrin - Final 03/26/25 13:00 Stool Enteric Bacteriology - Final 03/26/25 13:00 Stool Clostridioides difficile (PCR) - Final 03/26/25 13:00 Stool Stool Occult Blood (NYDIA) - Final Occult Blood Positive D/C Instructions Call your doctor if you observe: Fever of 101 or Higher, Shortness of breath, Dizziness, Fainting spells, Swelling in the ankles, Chest pain and Increased palpitations (irregular heartbeat) DC O2, CPAP, BIPAP Needs Home O2 Discharge instructions: No Meaningful Use Info Meaningful Use Meaningful Use Diagnoses (Choose all that apply): None applicable Discharge Plan Admission Admit Date/Time: 03/25/25 00:20 Attending Provider: Alfredito Yuan Primary Care Provider: Jesusita Kamara Consulting Providers: Nelson Vang; Lucas Grossman; Karrie Gannon; Ursula Hawkins; Gemini Morrow; Anca Dailey; Justus Luna Discharge Orders/Prescriptions Prescriptions: New polyethylene glycol 3350 [ClearLax] 17 gram/dose powder 17 g PO BID 30 Days Qty: 1020 0RF Continued All Day Allergy (cetirizine) 10 mg capsule 10 mg PO QDAY PRN (Reason: allergies) meloxicam 15 mg tablet 15 mg PO DAILY simvastatin 10 mg tablet 10 mg PO QHS levothyroxine 100 mcg tablet 100 mcg PO DAILY losartan 25 mg tablet 25 mg PO DAILY hydrochlorothiazide 12.5 mg capsule 12.5 mg PO DAILY atenolol 50 mg tablet 50 mg PO DAILY aspirin 81 mg tablet 81 mg PO DAILY ondansetron 4 mg tablet,disintegrating 4 mg PO Q8H PRN PRN (Reason: Nausea) Qty: 10 0RF Referrals / Follow Up: Jesusita Kamara MD [Primary Care Provider, Internal Medicine] - Within 1 Week Lucas Grsosman DO [Med Staff - Active Staff, Gastroenterology] - Within 1 Month Disposition Disposition (needs filled in before D/C Order can be placed): Home, Self Care Charges/Coding Visit Charges Inpatient E&M: 73999 Disch Hosp >30min
[2025-03-29] MEDS: Ertapenem Sod 1 GM in 0.9% Normal Saline (50mL MB+) 50 ML IV (18:12)
[2025-03-29] MEDS: 0.9% Saline Lock 10 ML Syringe IV (18:13)
== END 2025-03-29 19:27 | disposition home or self-care (01) | DRG 871 ==
LOC: ED 03-25 00:18 → PCU 03-25 00:39
PROVIDERS: Internal Medicine; Internal Medicine Gastroenterology; Admitting Provider Family Medicine; Emergency Provider Emergency Medicine; PCP Internal Medicine; Visit Provider Family Medicine
PROC: 0DJD8ZZ Inspection of Lower Intestinal Tract, Via Natural or Artificial Opening Endoscopic (ICD-10-PCS; CPT 45378; principal; 2025-03-28 11:55)
DX: A41.4 Sepsis due to anaerobes (principal); E43 Unspecified severe protein-calorie malnutrition; K55.9 Vascular disorder of intestine, unspecified; R18.8 Other ascites; Z68.1 Body mass index [BMI] 19.9 or less, adult; E86.0 Dehydration; N18.30 Chronic kidney disease, stage 3 unspecified; E03.9 Hypothyroidism, unspecified; I12.9 Hypertensive chronic kidney disease with stage 1 through stage 4 chronic kidney disease, or unspecified chronic kidney disease; E78.00 Pure hypercholesterolemia, unspecified; D75.839 Thrombocytosis, unspecified; Z79.82 Long term (current) use of aspirin; Z79.890 Hormone replacement therapy; Z79.899 Other long term (current) drug therapy
CPT/HCPCS: 36415; 71046; 74177; 80048; 80053; 82274; 83605; 83630; 83735; 84100; 85025; 85652; 86140; 87040; 87077; 87493; 87506; 88305; 88342; 93005; 94668; 97802; 97803; 99285; J2185; Q9967; A4216; J2405

== ENCOUNTER 2025-04-06 05:51 | Emergency (ER) | payer MEDICARE, SELFPAY ==
[2025-04-06 05:51] VITALS: BP 174/68; PULSE 78; RESP 18; TEMP 36.7; O2SAT 91; BMI 18.8
[2025-04-06 06:32] LABS: Hematocrit 38.8 % (37-47); Hemoglobin 12.7 g/dL (12.0-15.0); Immature Granulocytes Count 0.040 X10^3/uL (0.0-0.0); Mean Corp Hgb Conc 32.7 g/dL (32-36); Mean Corpuscular Volume 96.8 fL (81-99); Mean Platelet Vol. 8.1 fl (6.2-12.0); NRBC Flagged by Analyzer 0 % (0-5); POSITIVE COUNT YES; POSITIVE MORPHOLOGY YES; RBC Distribution Width CV 14.1 % (11.6-14.6); RBC Distribution Width SD 50.6 fl (35.1-43.9); Red Blood Count 4.01 M/mm3 (4.2-5.4); White Blood Count 6.5 K/mm3 (4.4-11.0)
[2025-04-06 06:35] LABS: Differential Indicated SCAN CRITERIA MET; Platelet Count 768 K/mm3 (150-450)
[2025-04-06] MEDS: 0.9% Normal Saline (500mL Bag) 500 ML 999 ML IV (06:37)
[2025-04-06 07:06] LABS: AST(SGOT) 12 U/L (<=31); Alanine Aminotransfer ALT/SGPT < 5 U/L (<=34); Albumin, Serum 2.4 g/dL (3.4-4.8); Alkaline Phosphatase 111 U/L (35-104); Anion Gap 12 (5-15); BUN 14 mg/dL (4-19); BUN/Creat Ratio 31.1 RATIO (10-20); Bilirubin, Direct 0.25 mg/dL (0.00-0.30); Calcium,Total 8.0 mg/dL (7.6-11.0); Carbon Dioxide 27.4 mmol/L (21.0-32.0); Chloride 97 mmol/L (98-108); Estimated Creatinine Clearance 34.74 ml/min (50-250); Globulin 3.1 g/dL (2.2-4.2); Glucose 107 mg/dL (70-99); Lipase 14 U/L (13-75); Potassium 2.9 mmol/L (3.3-5.1)
[2025-04-06 07:14] LABS: Reactive Lymphocyte 1+
--- NOTE | 2025-04-06 07:30 | EX.ED.DYSGE1 ---
HPI History of Present Illness Chief Complaint: Abd Pain Informant: patient and family Narrative Narrative: Patient is a 84-year-old female with past medical history of hypertension hyperlipidemia hypothyroidism and recent admission secondary to diffuse colitis. She states that she was in the hospital for multiple days receiving antibiotics. She states that after her colonoscopy she had persistent diarrhea and was placed on a new medication/Cholesytramine. She states that last night into this morning she has noticed mild generalized abdominal discomfort. She states she has been no fever and she reports her diarrhea has been improving as well. However because of her recent admission she was concerned that she may be developing a secondary infection or was unsure if the medication could be causing her symptoms and with this presents for evaluation. The patient states that she has not had a fever and she denies any blood per rectum and states that her diarrhea has essentially resolved as well. [facility] Medical History Thrombocytosis Diverticulosis of colon Disorder of bone and cartilage Benign neoplasm of colon Osteoarthritis Hypertension Hypothyroidism High blood cholesterol Colitis Home Medications ?Medication ?Instructions ?Recorded ?Last Taken ?Type aspirin 81 mg tablet 81 mg PO DAILY Antiplatelet 02/14/25 04/05/25 History atenolol 50 mg tablet 50 mg PO DAILY High BP 02/14/25 04/05/25 History hydrochlorothiazide 12.5 mg capsule 12.5 mg PO DAILY High BP 02/14/25 04/05/25 History levothyroxine 100 mcg tablet 100 mcg PO DAILY Thyroid 02/14/25 04/05/25 History replacement losartan 25 mg tablet 25 mg PO DAILY High bp 02/14/25 04/05/25 History meloxicam 15 mg tablet 15 mg PO DAILY pain 02/14/25 04/05/25 History ondansetron 4 mg disintegrating 4 mg PO Q8H PRN PRN Nausea #10 tabs 02/14/25 03/24/25 Rx tablet simvastatin 10 mg tablet 10 mg PO QHS Cholesterol 02/14/25 04/05/25 History cetirizine 10 mg capsule (All Day 10 mg PO QDAY PRN allergies 03/21/25 03/24/25 History Allergy (cetirizine)) cholestyramine (with sugar) 4 gram 4 g PO BID 7 days #14 ea 04/05/25 Unknown Rx powder for susp in a packet potassium chloride 10 mEq 10 meq PO DAILY 7 days #7 caps 04/06/25 Unknown Rx capsule,extended release Allergy/AdvReac Type Severity Reaction Status Date / Time alendronate sodium (From Allergy Intermediate Other Verified 04/06/25 20:33 Fosamax) amoxicillin Allergy Intermediate Hives Verified 04/06/25 20:33 valacyclovir (From Valtrex) Allergy Intermediate Other Verified 04/06/25 20:33 levofloxacin AdvReac Abd Verified 04/06/25 20:33 cramps/diarrhea metronidazole (From Flagyl) AdvReac Abd Verified 04/06/25 20:33 cramps/diarrhea Family History Mother TIA (transient ischemic attack) CHF (congestive heart failure) Heart disease Father Heart disease Surgical History History of tonsillectomy and adenoidectomy H/O laparoscopy H/O dilation and curettage Social History household members: none Smoking Status: Never smoker alcohol intake: never substance use type: does not use ROS ROS ED Constitutional Constitutional ED: Denies chills or fever(s) ENT ENT ED: Denies sore throat Cardiovascular Cardiovascular: Denies chest pain Respiratory/Chest Respiratory/Chest: Denies cough or dyspnea Gastrointestinal Gastrointestinal: Reports abdominal pain, diarrhea and nausea; Denies constipation, melena or vomiting Genitourinary Genitourinary ED: Denies dysuria or hematuria Musculoskeletal Musculoskeletal: Denies back pain or myalgias Integumentary Denies rash Neurologic Neurologic: Denies headache(s) Hematologic/Lymphatic Hematologic/Lymphatic: Denies easy bleeding or easy bruising EXAM Physical Exam Const Vital Signs: 04/06/25 05:51 Temperature 98.1 F Temperature Source Oral Pulse Rate 78 Respiratory Rate 18 Blood Pressure 174/68 H Blood Pressure Mean 103 Pulse Ox 91 Oxygen Delivery Method Room Air Positive well nourished and well developed General Appearance ED: well developed; Negative for pallor HEENT HEENT Narrative: Normocephalic atraumatic No tongue or lip swelling no oral lesions no airway edema or compromise; no secondary findings in the posterior pharynx to suggest infection Eyes PERRL and EOMs intact bilaterally General Eye ED: Negative for scleral icterus Neck supple Resp normal respiratory effort and clear to auscultation bilaterally Resp Narrative: Breath sounds are diminished throughout but overall clear to auscultation without signs of respiratory distress Cardio regular rate and regular rhythm Rate: other Other Details: Radial and carotid pulses are equal and symmetric GI non-distended and no masses GI Narrative: Abdomen is soft and nondistended with normal active bowel sounds. There is mild diffuse pain on palpation but no voluntary guarding or rigidity or pulsatile mass. No peritoneal signs. No increased tympany Auscultation: normoactive bowel sounds Palpation: soft Extremity normal to inspection Neuro oriented x3, CN's II-XII intact bilaterally and no sensory deficits noted Sensorium / Orientation: alert Motor Exam: strength 5/5 throughout Psych mental status grossly normal Skin no rashes or lesions noted General Skin Exam: Negative for jaundice or pallor MDM MDM MDM Narrative Medical decision making narrative: Patient arrived to the ER slightly hypertensive but has a past medical history of this. She reported mild generalized abdominal pain and is unsure if this is related to potentially a reoccurrence of her recent infection or due to her new medication the Cholesytramine. The patient is afebrile her abdomen is not rigid or distended. Pain is minimal to palpation as well. We did discuss obtaining repeat laboratory studies to check for leukocytosis or left shift versus acute kidney injury or elevation to her liver enzymes or lipase to check for biliary colic versus acute cholecystitis versus potential developing infection. We also discussed obtaining a repeat CT scan to assess for any intestinal abnormality such as developing colitis or abscess or perforation. The patient states that overall she is feeling much better from when she was discharged and she does not want a CT scan but would prefer laboratory studies as her previous white count she states was greatly elevated. Therefore basic labs were obtained but no imaging studies. The patient's previous white count was greatly elevated at approximately 30 consistent with her history of infection. However today white count is normal at 6.5 and there is no left shift as her neutrophil count is 4.1. Her liver enzymes are within normal limits as well going against biliary colic and her lipase is normal going against acute pancreatitis. The patient's potassium is down at 2.9 but otherwise there are no clinically significant electrolyte abnormality. The patient's platelet count is elevated at 768 but chart review reveals that this has been elevated in the past and with only platelet elevation without fever leukocytosis or left shift I do not feel there is need for further intervention. The patient was reassessed after receiving medication as well as having her laboratory studies resulted. She states she feels much better at this time and on reevaluation her abdomen remains soft and nonsurgical. Therefore at this time without fever leukocytosis left shift or hypotension I have low concern for developing secondary infection. As she has had improvement of her abdominal discomfort and her abdomen is not rigid or distended I have low concern for potential perforation. Patient states that she feels much better at this time and would like to return home. She was instructed that if her symptoms worsen she will need to return to the ER as she may be feeling symptoms prior to changes in her vitals or lab. Patient and family state that they understand this and will return if needed however at this time as overall workup is negative vital stable and she reports feeling better she will be discharged home History & Record Review Discussion w/independent historian: Patient and Family Additional record(s) reviewed:: Prior labs Lab Data Attestation: I reviewed the patient's lab results. Labs: Laboratory Results - last 24 hr 04/06/25 05:58 WBC 6.5 RBC 4.01 L Hgb 12.7 Hct 38.8 MCV 96.8 MCH 31.7 MCHC 32.7 RDW Std Deviation 50.6 H RDW Coeff of Anay 14.1 Plt Count 768 H* MPV 8.1 Immature Gran % (Auto) 0.600 Neut % (Auto) 62.9 Lymph % (Auto) 22.0 [place]urel % (Auto) 13.0 H Eos % (Auto) 0.6 Baso % (Auto) 0.9 Absolute Neuts (auto) 4.1 Absolute Lymphs (auto) 1.44 Nucleated RBC % 0 Reactive Lymphocytes 1+ Platelet Estimate MKD INC Sodium 136 Potassium 2.9 L Chloride 97 L Carbon Dioxide 27.4 Anion Gap 12 BUN 14 Creatinine 0.45 L Estim Creat Clear Calc 34.74 L Est GFR (MDRD) Non-Af 94 BUN/Creatinine Ratio 31.1 H Glucose 107 H Calcium 8.0 Total Bilirubin 0.45 Direct Bilirubin 0.25 AST 12 ALT < 5 Alkaline Phosphatase 111 H Total Protein 5.5 L Albumin 2.4 L Globulin 3.1 Lipase 14 Discharge Plan Triage Chief Complaint: Abd Pain ED Provider: Bijan Bernal Dx/Rx/DC Orders Clinical Impression: Nonspecific abdominal pain, Adverse drug reaction Instructions: Abdominal Pain, ED Drug Reaction, Other Prescriptions: New potassium chloride 10 mEq capsule, extended release 10 meq PO DAILY 7 Days Qty: 7 0RF No Action All Day Allergy (cetirizine) 10 mg capsule 10 mg PO QDAY PRN (Reason: allergies) meloxicam 15 mg tablet 15 mg PO DAILY simvastatin 10 mg tablet 10 mg PO QHS levothyroxine 100 mcg tablet 100 mcg PO DAILY losartan 25 mg tablet 25 mg PO DAILY hydrochlorothiazide 12.5 mg capsule 12.5 mg PO DAILY atenolol 50 mg tablet 50 mg PO DAILY aspirin 81 mg tablet 81 mg PO DAILY ondansetron 4 mg tablet,disintegrating 4 mg PO Q8H PRN PRN (Reason: Nausea) Qty: 10 0RF cholestyramine (with sugar) 4 gram powder in packet 4 g PO BID 7 Days Qty: 14 0RF Rx Instructions: administer w/meal; avoid other meds within 1hr before or 4-6hr after dose Primary Care Provider: Jesusita Kamara Referrals: Jesusita Kamara MD [Primary Care Provider, Internal Medicine] Friend,DO Lucas [Med Staff - Active Staff, Gastroenterology] Activity Restrictions/Additional Instructions: Your workup today would indicate that your stomach discomfort is most likely from the new medication/cholestyramine. Please stop this medication and symptoms should improve over the next few days. Your potassium level was also low at 2.9 therefore take the prescribed medication once a day to bring this into a normal level. Follow-up with your family doctor and GI physician for repeat evaluation and return to the ER should you have any further concerns or worsening of symptoms Print Language: Swedish Disposition Disposition: Home, Self Care Discharge Date/Time: 04/06/25 07:47
[2025-04-06 07:46] VITALS: BP 126/74; PULSE 81; RESP 16; TEMP 36.3; O2SAT 100
== END 2025-04-06 07:47 | disposition home or self-care (01) ==
PROVIDERS: Emergency Provider Emergency Medicine; PCP Internal Medicine; Visit Provider Emergency Medicine
DX: R10.84 Generalized abdominal pain (principal); E78.00 Pure hypercholesterolemia, unspecified; Z79.82 Long term (current) use of aspirin; Z79.899 Other long term (current) drug therapy; E03.9 Hypothyroidism, unspecified; Z79.890 Hormone replacement therapy; T46.6X5A Adverse effect of antihyperlipidemic and antiarteriosclerotic drugs, initial encounter; I10 Essential (primary) hypertension
CPT/HCPCS: 99285; 80048; 80076; 83690; 85025; A4216; J2405

== ENCOUNTER 2025-04-06 20:29 | Inpatient (IN) | payer MEDICARE, SELFPAY ==
[2025-04-06] VITALS (19 sets, daily range): BP systolic 66–127; BP diastolic 50–114; PULSE 82–108; RESP 14–27; TEMP 36.9; O2SAT 80–99; BMI 18.6
[2025-04-06] MEDS: 0.9% Normal Saline (1000mL) 1,000 ML 999 ML IV ×2 (20:57→23:21)
[2025-04-06] MEDS: fentaNYL 100 MCG/2 ML Ampul 50 MCG IV (20:57)
[2025-04-06 21:06] LABS: Hematocrit 44.0 % (37-47); Hemoglobin 13.7 g/dL (12.0-15.0); Immature Granulocytes Count 0.200 X10^3/uL (0.0-0.0); Mean Corp Hgb Conc 31.1 g/dL (32-36); Mean Corpuscular Volume 99.1 fL (81-99); Mean Platelet Vol. 8.6 fl (6.2-12.0); NRBC Flagged by Analyzer 0 % (0-5); POSITIVE COUNT YES; POSITIVE MORPHOLOGY YES; RBC Distribution Width CV 14.5 % (11.6-14.6); RBC Distribution Width SD 52.7 fl (35.1-43.9); Red Blood Count 4.44 M/mm3 (4.2-5.4); White Blood Count 21.5 K/mm3 (4.4-11.0)
[2025-04-06 21:10] LABS: Platelet Count 794 K/mm3 (150-450)
[2025-04-06 21:11] LABS: Differential Indicated SCAN CRITERIA MET
[2025-04-06 21:31] LABS: Lipase 9 U/L (13-75)
[2025-04-06 21:35] LABS: AST(SGOT) 22 U/L (<=31); Alanine Aminotransfer ALT/SGPT < 5 U/L (<=34); Albumin, Serum 2.2 g/dL (3.4-4.8); Alkaline Phosphatase 105 U/L (35-104); Anion Gap 20 (5-15); BUN 19 mg/dL (4-19); BUN/Creat Ratio 15.4 RATIO (10-20); Calcium,Total 8.0 mg/dL (7.6-11.0); Carbon Dioxide 22.5 mmol/L (21.0-32.0); Chloride 96 mmol/L (98-108); Estimated Creatinine Clearance 22.57 ml/min (50-250); Globulin 3.1 g/dL (2.2-4.2); Glucose 126 mg/dL (70-99); Potassium 3.5 mmol/L (3.3-5.1)
[2025-04-06 21:51] LABS: Mucous, Urine 0 SEEN /hpf (<or=2+); Red Blood Cells-Urine 0 SEEN /hpf (0-5)
[2025-04-06 22:08] LABS: Differential Comment SCANNED
[2025-04-06 22:13] LABS: Prothrombin Time (Protime)PT. 15.6 SECONDS (11.7-14.9)
[2025-04-06 22:14] LABS: Partial Thromboplast Time 33.5 Seconds (24.1-36.2)
[2025-04-06 22:24] LABS: Color, Urine Yellow (Yellow); Glucose, Dipstick Normal (Normal); Ketone-Dipstick Negative (Negative); Leukocyte Esterase-Dipstick Negative /ul (Negative); Nitrite-Dipstick Negative (Negative); Occult Blood-Urine 10 /ul (Negative); Protein-Dipstick 100 mg/dl (Negative); Specific Gravity, Urine 1.010 (1.002-1.030)
[2025-04-06 22:34] LABS: Urine Bilirubin Dipstick 1 mg/dL (Negative)
[2025-04-06] MEDS: Ertapenem Sod 1 GM in 0.9% Normal Saline (50mL MB+) 50 ML IV (23:20)
[2025-04-06] MEDS: Oxymetazoline 0.05% 1 SPRAY SPRAY.BTL 2 SPRAY NASAL (23:22)
[2025-04-06 23:24] LABS: Squamous Epithelial Cells - UA 0-5 SEEN /hpf (5-10)
[2025-04-07] VITALS (99 sets, daily range): BP systolic 75–184; BP diastolic 39–84; PULSE 68–110; RESP 5–29; TEMP 2.2–36.9; O2SAT 22–100; BMI 18.6; BMI 19.8
[2025-04-07] MEDS: Lidocaine 1% (5 ml sdv) 5 ML Vial 6 ML IV (00:48)
[2025-04-07] MEDS: 0.9% Normal Saline (1000mL) 400 ML IV (01:00)
[2025-04-07 01:09] LABS: Reflex Lactate? Y
[2025-04-07] MEDS: Bupiv/Epi 0.25% 30 ML Vial (01:15)
[2025-04-07] MEDS: Pantoprazole Sodium 80 MG in 0.9% Normal Saline (50mL Bag) 15 ML 420 MG IV BOLUS (01:40)
[2025-04-07] MEDS: Fluconazole IVPB 200 MG/100 ML BAG 100 MG IV ×2 (01:45→20:50)
[2025-04-07] MEDS: fentaNYL 100 MCG/2 ML Ampul IV (01:47)
[2025-04-07] MEDS: 0.9% Normal Saline (Pres. free 10 ML Vial (01:57)
[2025-04-07] MEDS: BUPIVACAINE LIPOSOME/PF 20 ML VIAL OPERA.SITE (01:57)
[2025-04-07] MEDS: 0.9% Normal Saline (1000mL) 1,000 ML 999 ML IV (02:30)
[2025-04-07] MEDS: 0.9% Normal Saline (1000mL) 1,000 ML 125 ML IV ×3 (03:49→19:05)
[2025-04-07] MEDS: Pantoprazole Sodium 80 MG in 0.9% Normal Saline (100mL Bag) 80 ML 10 MG IV ×3 (03:49→19:05)
[2025-04-07 04:29] LABS: Hematocrit 39.2 % (37-47); Hemoglobin 11.7 g/dL (12.0-15.0); Immature Granulocytes Count 1.190 X10^3/uL (0.0-0.0); Mean Corp Hgb Conc 29.8 g/dL (32-36); Mean Corpuscular Volume 103.7 fL (81-99); Mean Platelet Vol. 7.9 fl (6.2-12.0); NRBC Flagged by Analyzer 0 % (0-5); POSITIVE COUNT YES; POSITIVE DIFFERENTIAL YES; POSITIVE MORPHOLOGY YES; Platelet Count 709 K/mm3 (150-450); RBC Distribution Width CV 14.7 % (11.6-14.6); RBC Distribution Width SD 56.4 fl (35.1-43.9); Red Blood Count 3.78 M/mm3 (4.2-5.4)
[2025-04-07 04:33] LABS: Differential Indicated SCAN CRITERIA MET; White Blood Count 34.3 K/mm3 (4.4-11.0)
[2025-04-07 05:01] LABS: Differential Comment SCANNED
[2025-04-07 05:09] LABS: LPM 15.0; SITE ART LINE; Time Given 0440
[2025-04-07 05:10] LABS: Base Excess -6 mmol/L (-2 to +2); Comment CRITICAL VALUES; PO2 181 mmHG (75-100); SO2 98 % (95-99)
[2025-04-07 05:32] LABS: Anion Gap 11 (5-15); BUN 18 mg/dL (4-19); BUN/Creat Ratio 20.3 RATIO (10-20); Calcium,Total 6.8 mg/dL (7.6-11.0); Carbon Dioxide 21.6 mmol/L (21.0-32.0); Chloride 107 mmol/L (98-108); Estimated Creatinine Clearance 33.73 ml/min (50-250); Glucose 166 mg/dL (70-99); Magnesium 1.9 mg/dL (1.5-2.2); Potassium 4.5 mmol/L (3.3-5.1)
[2025-04-07 05:36] LABS: CPK Total, Creatine Kinase 38 U/L (24-195); Triglycerides 63 mg/dL
[2025-04-07] MEDS: Norepinephrine 8 mg/250 mL 0.9% NS 9.4 MG CONT INF (05:37)
[2025-04-07] MEDS: fentaNYL drip 100 ML 2.5 MCG CONT INF (05:45)
[2025-04-07 05:46] LABS: Allen Test Positive; Base Excess -5 mmol/L (-2 to +2); FI02 70.0; PEEP 5; PO2 116 mmHG (75-100); RR 26; SITE L Radial; SO2 99 % (95-99)
[2025-04-07] MEDS: dexMEDEtomidine 400 MCG in 0.9% Normal Saline (100mL Bag) 96 ML 5.7 MCG CONT INF (06:30)
[2025-04-07] MEDS: Chlorhexidine 15 ML PO ×2 (08:52→20:50)
[2025-04-07] MEDS: Meropenem 1 GM in 0.9% Normal Saline (100mL MB+) 100 ML IV ×2 (10:16→22:22)
[2025-04-07] MEDS: TITRATION PARAMETER CHANGE 1 EACH IV (11:03)
[2025-04-07] MEDS: Norepinephrine 8 mg/250 mL 0.9% NS 41.3 MG CONT INF (11:57)
[2025-04-07] MEDS: Vasopressin 20 UNITS in 0.9% Normal Saline (50mL Bag) 24 ML 3 UNITS CONT INF ×3 (12:00→22:22)
[2025-04-07] MEDS: 0.9 % NaCl (Sterile) Posiflush 10 mL IV ×2 (16:39→22:22)
[2025-04-07] MEDS: Lactated Ringers 1,000 ML 999 ML IV (17:54)
[2025-04-07] MEDS: Albumin Human 25% (100 mL) 25 GM/100 ML BAG IV (19:35)
[2025-04-07] MEDS: Norepinephrine 8 mg/250 mL 0.9% NS 37.5 MG CONT INF (20:45)
[2025-04-08] VITALS (44 sets, daily range): BP systolic 72–189; BP diastolic 38–75; PULSE 0–79; RESP 20–30; TEMP 34.9–37.3; O2SAT 93–98; BMI 23.6
[2025-04-08] MEDS: 0.9% Normal Saline (1000mL) 1,000 ML 999 ML IV ×2 (00:23→01:57)
[2025-04-08 01:29] LABS: Hematocrit 23.0 % (37-47); Hemoglobin 7.2 g/dL (12.0-15.0); Mean Corp Hgb Conc 31.3 g/dL (32-36); Mean Corpuscular Volume 102.2 fL (81-99); Mean Platelet Vol. 7.9 fl (6.2-12.0); POSITIVE COUNT YES; POSITIVE MORPHOLOGY YES; Platelet Count 243 K/mm3 (150-450); RBC Distribution Width CV 15.5 % (11.6-14.6); RBC Distribution Width SD 57.8 fl (35.1-43.9); Red Blood Count 2.25 M/mm3 (4.2-5.4); White Blood Count 22.5 K/mm3 (4.4-11.0)
[2025-04-08 01:34] LABS: BUN 21 mg/dL (4-19); BUN/Creat Ratio 14.0 RATIO (10-20); Chloride 114 mmol/L (98-108); Estimated Creatinine Clearance 19.60 ml/min (50-250); Potassium 5.0 mmol/L (3.3-5.1)
[2025-04-08 01:42] LABS: Anion Gap 21 (5-15); Calcium,Total 5.1 mg/dL (7.6-11.0); Carbon Dioxide 6.7 mmol/L (21.0-32.0); Glucose 11 mg/dL (70-99)
[2025-04-08] MEDS: 0.9 % NaCl (Sterile) Posiflush 10 mL IV ×2 (01:51→03:30)
[2025-04-08] MEDS: Sodium Bicarbonate 8.4% 50 ML Syringe 50 MEQ IV ×2 (01:51)
[2025-04-08 01:57] LABS: Differential Indicated MANUAL DIFF
[2025-04-08 02:08] LABS: Neutrophil-Band 11 % (0-5); Neutrophil-Segmented 79 % (47-70); Total Cells Counted 100 (MANUAL DIFF)
[2025-04-08 02:09] LABS: Differential Comment SCANNED; Red Cell Morphology NORM C+C NORMAL (NORM C&C); Toxic Granulation 1+; Vacuolated Cells 3+
[2025-04-08 02:11] LABS: Base Excess -21 mmol/L (-2 to +2); FI02 30.0; PEEP 5; PO2 115 mmHG (75-100); RR 20; SITE Art Line; SO2 98 % (95-99); Time Given 02:07:03
[2025-04-08] MEDS: Pantoprazole Sodium 80 MG in 0.9% Normal Saline (100mL Bag) 80 ML 10 MG IV ×2 (03:30→12:55)
[2025-04-08 03:47] LABS: Hematocrit 22.2 % (37-47); Hemoglobin 6.9 g/dL (12.0-15.0); Mean Corp Hgb Conc 31.1 g/dL (32-36); Mean Corpuscular Volume 99.1 fL (81-99); Mean Platelet Vol. 8.5 fl (6.2-12.0); Platelet Count 190 K/mm3 (150-450); RBC Distribution Width CV 15.6 % (11.6-14.6); RBC Distribution Width SD 55.6 fl (35.1-43.9); Red Blood Count 2.24 M/mm3 (4.2-5.4); White Blood Count 20.0 K/mm3 (4.4-11.0)
[2025-04-08 04:16] LABS: Magnesium 1.6 mg/dL (1.5-2.2)
[2025-04-08 04:20] LABS: AST(SGOT) 469 U/L (<=31); Alanine Aminotransfer ALT/SGPT 78 U/L (<=34); Albumin, Serum 1.4 g/dL (3.4-4.8); Alkaline Phosphatase 120 U/L (35-104); Anion Gap 20 (5-15); BUN 20 mg/dL (4-19); BUN/Creat Ratio 14.0 RATIO (10-20); Chloride 109 mmol/L (98-108); Estimated Creatinine Clearance 20.14 ml/min (50-250); Glucose 340 mg/dL (70-99); Potassium 4.9 mmol/L (3.3-5.1)
[2025-04-08 04:31] LABS: Calcium,Total 5.3 mg/dL (7.6-11.0); Carbon Dioxide 9.4 mmol/L (21.0-32.0); Globulin 1.0 g/dL (2.2-4.2)
[2025-04-08 04:41] LABS: Base Excess -17 mmol/L (-2 to +2); FI02 30.0; PEEP 5; PO2 103 mmHG (75-100); RR 30; SITE Art Line; SO2 99 % (95-99); Time Given 04:37:40
[2025-04-08 05:03] LABS: Reflex Lactate? Y
[2025-04-08] MEDS: Magnesium Sulfate 2 GM in Dextrose 5%-Water (100mL Bag) 100 ML IV (05:30)
[2025-04-08] MEDS: Sodium Bicarbonate 150 MEQ in Dextrose 5%-Water (1000mL Bag) 1,000 ML 100 MEQ IV ×2 (05:32→13:46)
[2025-04-08] MEDS: 0.9% Saline Lock 10 ML Syringe IV (05:52)
[2025-04-08] MEDS: TITRATION PARAMETER CHANGE 1 EACH IV (06:22)
[2025-04-08 08:11] LABS: Hematocrit 37.0 % (37-47); Hemoglobin 12.2 g/dL (12.0-15.0)
[2025-04-08 09:42] LABS: Base Excess -19 mmol/L (-2 to +2); FI02 30.0; PEEP 5; PO2 98 mmHG (75-100); RR 24; SITE Art Line; SO2 98 % (95-99); Time Given 09:40:20
[2025-04-08] MEDS: Norepinephrine 8 mg/250 mL 0.9% NS 15 MG CONT INF (10:00)
[2025-04-08] MEDS: fentaNYL drip 100 ML 2.5 MCG CONT INF (10:05)
[2025-04-08] MEDS: Meropenem 1 GM in 0.9% Normal Saline (100mL MB+) 100 ML IV (10:08)
[2025-04-08 12:05] LABS: Reflex Lactate? Y
[2025-04-08] MEDS: Vasopressin 20 UNITS in 0.9% Normal Saline (50mL Bag) 24 ML 3 UNITS CONT INF (12:23)
[2025-04-08] MEDS: Chlorhexidine 15 ML PO (12:51)
[2025-04-08 13:46] LABS: BUN 21 mg/dL (4-19); BUN/Creat Ratio 12.4 RATIO (10-20); Chloride 102 mmol/L (98-108); Estimated Creatinine Clearance 17.16 ml/min (50-250); Glucose 403 mg/dL (70-99)
[2025-04-08 13:54] LABS: Anion Gap 30 (5-15); Calcium,Total 5.6 mg/dL (7.6-11.0); Carbon Dioxide 3.7 mmol/L (21.0-32.0); Potassium 7.3 mmol/L (3.3-5.1)
== END 2025-04-08 17:15 | DRG 853 ==
LOC: ED 23:33 → SDC 04-07 00:15 → AC 04-07 00:15 → ICU 04-07 06:59 → SDC 04-07 08:07 → ICU 04-07 08:07
PROVIDERS: Family Medicine; Internal Medicine; Internal Medicine Critical Care Medicine; Admitting Provider Surgery; Emergency Provider Surgery; PCP Internal Medicine; Referring Provider Surgery; Visit Provider Surgery
PROC: (CPT 49320; principal; 2025-04-06 23:45)
DX: A41.9 Sepsis, unspecified organism (principal); J95.821 Acute postprocedural respiratory failure; R65.21 Severe sepsis with septic shock; N17.0 Acute kidney failure with tubular necrosis; E43 Unspecified severe protein-calorie malnutrition; K25.5 Chronic or unspecified gastric ulcer with perforation; K65.9 Peritonitis, unspecified; E87.20 Acidosis, unspecified; R18.8 Other ascites; Z68.1 Body mass index [BMI] 19.9 or less, adult; K66.8 Other specified disorders of peritoneum; Z66 Do not resuscitate; N18.30 Chronic kidney disease, stage 3 unspecified; E03.9 Hypothyroidism, unspecified; I12.9 Hypertensive chronic kidney disease with stage 1 through stage 4 chronic kidney disease, or unspecified chronic kidney disease; I46.9 Cardiac arrest, cause unspecified; E78.00 Pure hypercholesterolemia, unspecified; E87.5 Hyperkalemia; E16.2 Hypoglycemia, unspecified; E86.0 Dehydration; Y92.239 Unspecified place in hospital as the place of occurrence of the external cause; R82.71 Bacteriuria; Z79.82 Long term (current) use of aspirin; Z79.890 Hormone replacement therapy; Z79.899 Other long term (current) drug therapy; Z53.31 Laparoscopic surgical procedure converted to open procedure
CPT/HCPCS: 31500; 31720; 36600; 51702; 71045; 74018; 74150; 74174; 74176; 80048; 80053; 80076; 81001; 82550; 82803; 82962; 83605; 83690; 83735; 84100; 84478; 85014; 85018; 85025; 85027; 85610; 85730; 86850; 86900; 86901; 87040; 87070; 87086; 87088; 87205; 93005; 94002; 94003; 94762; 97803; 99252; 99285; J2185; P9016; P9047; Q9967; A4216; C1751; G0463; J0612; J0666; J2405